=== PATIENT | male | born 1945 | race Caucasian/White ===

== ENCOUNTER 2018-11-17 17:28 | Emergency (ER) | payer MEDICARE, OTHER ==
[~2018-11-17] VITALS: Ht 185.4 cm; Wt 88.9 kg
--- NOTE | 2018-11-17 17:55 | ED Back Pain ---
General Chief Complaint: Back Problems Stated Complaint: LOWER BACK, LEFT BUTTOCK PAIN Nursing Triage Note: AMBULATED TO TRIAGE WITH COMPLAINTS OF LOWER BACK PAIN THAT IS OFF AND ON AND LEFT BUTTOCK PAIN THAT IS ON AND OFF. DAUGHTER WHO IS A WEB CONTENT EDITOR WANTS HIM WORKED UP FOR A KIDNEY STONE. Nursing Sepsis Screen: No Definite Risk Source of Information: Patient, Family Exam Limitations: No Limitations History of Present Illness Date Seen by Provider: Nov 17, 2018 Time Seen by Provider: 17:54 Initial Comments To ER by family with reports of sudden onset intense left flank pain about 15 minutes prior to arrival. This resolved on its own. It's almost gone now with the exception of some residual pain in the left buttocks. He denies any dysuria nausea vomiting fevers or chills. History of anemia, thrombocytosis, just finished hydroxyurea. Last hemoglobin was 6.9. Location: Lumbar Spine, Paraspinous Muscles Timing/Duration: 1/2 Hour Severity: Moderate Pain/Injury Location: Back Associated Symptoms: lower back pain Allergies and Home Medications Allergies Coded Allergies: Tetanus Vaccines and Toxoid (Verified Allergy, Unknown, 11/17/18) Patient Home Medication List Home Medication List Reviewed: Yes Review of Systems Constitutional: see HPI EENTM: see HPI Respiratory: no symptoms reported Cardiovascular: no symptoms reported Genitourinary: no symptoms reported Musculoskeletal: see HPI Skin: no symptoms reported Past Mpthupy-Kgyyvs-Ggxmcv Hx Patient Social History Recent Foreign Travel: No Contact w/Someone Who Travel: No Recent Infectious Disease Expo: No Physical Exam Vital Signs Vital Signs - First Documented 11/17/18 17:38 Temp 97.7 Pulse 64 Resp 16 B/P (MAP) 148/61 (90) Pulse Ox 96 O2 Delivery Room Air Capillary Refill : Less Than 3 Seconds Height, Weight, BMI Height: 6'1.00" Weight: 196lbs. oz. 88.884619fa; BMI Method:Stated General Appearance: No Apparent Distress, WD/WN HEENT: PERRL/EOMI, TMs Normal Neck: Full Range of Motion, Normal Inspection Respiratory: Lungs Clear, Normal Breath Sounds, No Accessory Muscle Use, No Respiratory Distress Gastrointestinal: Non Tender, Soft Extremity: Normal Capillary Refill, Normal Inspection Neurologic/Psychiatric: Alert, Oriented x3 Skin: Normal Color, Warm/Dry Progress/Results/Core Measures Results/Orders Lab Results Laboratory Tests Test 11/17/18 17:54 Range/Units White Blood Count 6.8 4.3-11.0 10^3/uL Red Blood Count 2.02 L 4.35-5.85 10^6/uL Hemoglobin 7.6 L 13.3-17.7 G/DL Hematocrit 24 L 40-54 % Mean Corpuscular Volume 118 H 80-99 FL Mean Corpuscular Hemoglobin 38 H 25-34 PG Mean Corpuscular Hemoglobin Concent 32 32-36 G/DL Red Cell Distribution Width 24.7 H 10.0-14.5 % Platelet Count 854 H 130-400 10^3/uL Mean Platelet Volume 9.8 7.4-10.4 FL Neutrophils (%) (Auto) 58 42-75 % Lymphocytes (%) (Auto) 26 12-44 % Monocytes (%) (Auto) 12 0-12 % Eosinophils (%) (Auto) 3 0-10 % Basophils (%) (Auto) 1 0-10 % Neutrophils # (Auto) 4.0 1.8-7.8 X 10^3 Lymphocytes # (Auto) 1.8 1.0-4.0 X 10^3 Monocytes # (Auto) 0.8 0.0-1.0 X 10^3 Eosinophils # (Auto) 0.2 0.0-0.3 10^3/uL Basophils # (Auto) 0.1 0.0-0.1 10^3/uL Urine Color YELLOW Urine Clarity CLEAR Urine pH 5 5-9 Urine Specific [place] 1.015 L 1.016-1.022 Urine Protein 2+ H NEGATIVE Urine Glucose (UA) NEGATIVE NEGATIVE Urine Ketones NEGATIVE NEGATIVE Urine Nitrite NEGATIVE NEGATIVE Urine Bilirubin NEGATIVE NEGATIVE Urine Urobilinogen NORMAL NORMAL MG/DL Urine Leukocyte Esterase NEGATIVE NEGATIVE Urine RBC (Auto) NEGATIVE NEGATIVE Urine RBC NONE /HPF Urine WBC NONE /HPF Urine Squamous Epithelial Cells 5-10 /HPF Urine Crystals NONE /LPF Urine Bacteria NEGATIVE /HPF Urine Casts NONE /LPF Urine Mucus NEGATIVE /LPF Urine Culture Indicated NO Sodium Level 140 135-145 MMOL/L Potassium Level 4.0 3.6-5.0 MMOL/L Chloride Level 109 H 98-107 MMOL/L Carbon Dioxide Level 22 21-32 MMOL/L Anion Gap 9 5-14 MMOL/L Blood Urea Nitrogen 19 H 7-18 MG/DL Creatinine 0.92 0.60-1.30 MG/DL Estimat Glomerular Filtration Rate > 60 BUN/Creatinine Ratio 21 Glucose Level 93 70-105 MG/DL Calcium Level 8.6 8.5-10.1 MG/DL Corrected Calcium 8.5 8.5-10.1 MG/DL Total Bilirubin 0.3 0.1-1.0 MG/DL Aspartate Amino Transf (AST/SGOT) 17 5-34 U/L Alanine Aminotransferase (ALT/SGPT) 18 0-55 U/L Alkaline Phosphatase 53 40-136 U/L Total Protein 7.2 6.4-8.2 GM/DL Albumin 4.1 3.2-4.5 GM/DL My Orders Orders - HELLEN WEI APRN Cbc With Automated Diff (11/17/18 17:42) Comprehensive Metabolic Panel (11/17/18 17:42) Ua Culture If Indicated (11/17/18 17:42) Ed Iv/Invasive Line Start (11/17/18 17:42) Ct Abd/Pelvis Wo(Kidney Stone) (11/17/18 17:51) Vital Signs/I&O 11/17/18 17:38 Temp 97.7 Pulse 64 Resp 16 B/P (MAP) 148/61 (90) Pulse Ox 96 O2 Delivery Room Air Blood Pressure Mean: 90 Diagnostic Imaging Diagonstic Imaging: CT Comments NAME: FARZAD HANNA [facility] REC#: [id number] PT STATUS: REG ER : 1945 PHYSICIAN: HELLEN WEI APRN ADMIT DATE: 11/17/18/ER Draft Date of Exam:11/17/18 CT ABD/PELVIS WO(KIDNEY STONE) PROCEDURE: CT urinary tract, rule out kidney stone. TECHNIQUE: Multiple contiguous axial images were obtained through the abdomen and pelvis without the use of intravenous contrast. Auto Exposure Controls were utilized during the CT exam to meet ALARA standards for radiation dose reduction. INDICATION: Left flank pain. FINDINGS: The lung bases are clear. Liver is unremarkable. There are some tiny stones in the dependent portion of the gallbladder. Common duct is not dilated. Pancreas appears normal. Spleen is not enlarged. Adrenals and kidneys appear normal. The prostate is enlarged. Urinary bladder is unremarkable. Appendix is normal. Small bowel is not dilated. There is a moderate amount of stool in the colon. IMPRESSION: Cholecystolithiasis. Aortic atherosclerosis. Enlarged prostate. No acute abnormality is seen. There is no evidence of ureteral calculus or obstruction. Dictated on workstation # [id number] Dict: 11/17/18 1838 Trans: 11/17/18 1846 [facility] [id number] Interpreted by: VILMA MURRAY MD Electronically signed by: Departure Impression Primary Impression: transient left flank pain Additional Impression: Thrombocytosis Disposition: HOME, SELF-CARE Condition: Stable Departure-Patient Inst. Decision time for Depature: 18:49 Referrals: NO,LOCAL PHYSICIAN (PCP/Family) Primary Care Physician Patient Instructions: NO INSTRUCTIONS GIVEN Add. Discharge Instructions: All discharge instructions reviewed with patient and/or family. Voiced understanding. HELLEN WEI WIRELESS ARCHITECT Nov 17, 2018 17:55
[2018-11-17 18:03] LABS: BASOPHILS # (AUTO) 0.1 10^3/uL (0.0-0.1); BASOPHILS % (AUTO) 1 % (0-10); EOSINOPHILS # (AUTO) 0.2 10^3/uL (0.0-0.3); EOSINOPHILS % (AUTO) 3 % (0-10); HEMATOCRIT 24 % (40-54); HEMOGLOBIN 7.6 G/DL (13.3-17.7); LYMPHOCYTES # (AUTO) 1.8 X 10^3 (1.0-4.0); LYMPHOCYTES % (AUTO) 26 % (12-44); MEAN CORPUSCULAR HEMOGLOBIN 38 PG (25-34); MEAN CORPUSCULAR HGB CONC 32 G/DL (32-36); MEAN CORPUSCULAR VOLUME 118 FL (80-99); MEAN PLATELET VOLUME 9.8 FL (7.4-10.4); MONOCYTES # (AUTO) 0.8 X 10^3 (0.0-1.0); MONOCYTES % (AUTO) 12 % (0-12); NEUTROPHILS % (AUTO) 58 % (42-75); PLATELET COUNT 854 10^3/uL (130-400); RED CELL DISTRIBUTION WIDTH 24.7 % (10.0-14.5); WHITE BLOOD COUNT 6.8 10^3/uL (4.3-11.0)
[2018-11-17 18:05] LABS: BILIRUBIN,URINE NEGATIVE (NEGATIVE); CLARITY,URINE CLEAR; COLOR,URINE YELLOW; GLUCOSE, URINE (UA) NEGATIVE (NEGATIVE); KETONES,URINE NEGATIVE (NEGATIVE); LEUKOCYTE ESTERASE ,URINE NEGATIVE (NEGATIVE); NITRITE,URINE NEGATIVE (NEGATIVE); PH,URINE 5 (5-9); PROTEIN,URINE 2+ (NEGATIVE); UROBILINOGEN,URINE NORMAL (NORMAL)
[2018-11-17] MEDS ORDERED: FOLI0.4T2 PO (18:10)
[2018-11-17] MEDS ORDERED: CARTIA XT (18:10)
[2018-11-17] MEDS ORDERED: NIAC500T24 PO (18:10)
[2018-11-17 18:14] LABS: BACTERIA,URINE NEGATIVE /HPF
[2018-11-17 18:22] LABS: ALANINE AMINOTRANSFERASE 18 U/L (0-55); ALBUMIN 4.1 GM/DL (3.2-4.5); ALKALINE PHOSPHATASE 53 U/L (40-136); BILIRUBIN,TOTAL 0.3 MG/DL (0.1-1.0); BUN/CREATININE RATIO 21; CALCIUM 8.6 MG/DL (8.5-10.1); CARBON DIOXIDE 22 MMOL/L (21-32); CHLORIDE 109 MMOL/L (98-107); CREATININE SERUM 0.92 MG/DL (0.60-1.30); GFR ESTIMATED > 60; GLUCOSE 93 MG/DL (70-105); SODIUM 140 MMOL/L (135-145); TOTAL PROTEIN 7.2 GM/DL (6.4-8.2)
--- NOTE | 2018-11-17 18:46 | Diagnostic Imaging Report ---
PROCEDURE: CT urinary tract, rule out kidney stone. TECHNIQUE: Multiple contiguous axial images were obtained through the abdomen and pelvis without the use of intravenous contrast. Auto Exposure Controls were utilized during the CT exam to meet ALARA standards for radiation dose reduction. INDICATION: Left flank pain. FINDINGS: The lung bases are clear. Liver is unremarkable. There are some tiny stones in the dependent portion of the gallbladder. Common duct is not dilated. Pancreas appears normal. Spleen is not enlarged. Adrenals and kidneys appear normal. The prostate is enlarged. Urinary bladder is unremarkable. Appendix is normal. Small bowel is not dilated. There is a moderate amount of stool in the colon. IMPRESSION: Cholecystolithiasis. Aortic atherosclerosis. Enlarged prostate. No acute abnormality is seen. There is no evidence of ureteral calculus or obstruction. Dictated by: Dictated on workstation # [id number]
[2018-11-17 19:01] VITALS: BP 147/68
== END 2018-11-17 19:01 | disposition home or self-care (01) ==
LOC: EDUNIT# 17:28 → ER 17:30
DX: D47.3 Essential (hemorrhagic) thrombocythemia (principal); R10.32 Left lower quadrant pain; Z88.7 Allergy status to serum and vaccine
CPT/HCPCS: 36415; 74176; 80053; 81000; 85025

== ENCOUNTER 2019-03-15 10:12 | Outpatient (CLI) | payer MEDICARE, OTHER ==
[~2019-03-15 10:12] MED LIST: CARTIA XT; FOLI0.4T2 PO; NIAC500T24 PO
[2019-03-15 10:30] VITALS: BP 106/65
[2019-03-15] MEDS ORDERED: diphenhydrAMINE 25 MG TAB (BENADRYL) PO ONE (10:30)
[2019-03-15] MEDS ORDERED: CATHETER FLUSH 10 ML SYR IV PRN (10:30)
[2019-03-15] MEDS ORDERED: NS IV 500 ML 500 ML IV SCH (10:30)
[2019-03-15] MEDS ORDERED: ACETAMINOPHEN 500 MG TAB (TYLENOL) PO ONE (10:30)
--- NOTE | 2019-03-15 10:45 | NUR ---
PT.'S PULSE WENT FROM 80 TO MID TO UPPER 140'S. PT. STATES IT HAPPENS OFTEN, HE GOES IN & OUT OF AFIB. DR. BRUCH CALLED AT THIS TIME. NEW ORDER TO GIVE METOPROLOL TARTRATE 25 MG PO X 1 DOSE NOW AND HAVE PT. CONTINUE VAGAL MANUEVERS TO TRY AND CONVERT HIMSELF BACK TO NORMAL. IF UNABLE TO DO SO, CALL DR. BYRD.
[2019-03-15] MEDS ORDERED: meTOprolol TARTRATE 25 MG (LOPRESSOR) TABLET PO ONE (11:00)
[2019-03-15 11:48] VITALS: BP 141/62
[2019-03-15 12:03] VITALS: BP 142/65
[2019-03-15] MEDS ORDERED: ACET325T38 PO (12:29)
[2019-03-15] MEDS ORDERED: OXYC1TAB12 PO (12:29)
[2019-03-15] MEDS ORDERED: CLOP75TA28 PO (12:29)
[2019-03-15] MEDS ORDERED: PREG100C PO (12:29)
[2019-03-15] MEDS ORDERED: DILT240C PO (12:29)
[2019-03-15] MEDS ORDERED: TAMS0.4C98 PO (12:29)
[2019-03-15] MEDS ORDERED: ANAG1CAP2 PO (12:29)
[2019-03-15] MEDS ORDERED: METO-333 PO (12:29)
[2019-03-15] MEDS ORDERED: GABA-488 PO (12:29)
[2019-03-15] MEDS ORDERED: ASPI-999 PO (12:29)
[2019-03-15] MEDS ORDERED: FERR-84 PO (12:29)
[2019-03-15] MEDS ORDERED: FINA5TAB6 PO (12:29)
[2019-03-15 14:05] VITALS: BP 128/63
== END 2019-03-15 14:21 | disposition home or self-care (01) ==
LOC: SDC 10:12
PROVIDERS: ATTEND Nurse Practitioner Family
DX: D64.9 Anemia, unspecified (principal)
CPT/HCPCS: 36415; 36430; 86850; 86900; 86901; 86920

== ENCOUNTER 2019-04-16 08:58 | Outpatient (CLI) | payer MEDICARE, OTHER ==
[~2019-04-16] VITALS: Ht 188 cm; Wt 81.8 kg
[~2019-04-16 08:58] MED LIST changes: +ACET325T38 PO; +ANAG1CAP2 PO; +ASPI-999 PO; +CLOP75TA28 PO; +DILT240C PO; +FERR-84 PO; +FINA5TAB6 PO; +GABA-488 PO; +METO-333 PO; +OXYC1TAB12 PO; +PREG100C PO; +TAMS0.4C98 PO
[2019-04-16 09:05] VITALS: BP 157/67
[2019-04-16] MEDS ORDERED: NS IV 1000 ML 1,000 ML IV NR (09:15)
[2019-04-16] MEDS ORDERED: NS IV 1000 ML 1,000 ML IV ONE (10:45)
[2019-04-16 10:57] VITALS: BP 157/67
[2019-04-16] MEDS ORDERED: NS IV 500 ML 500 ML IV ONE (11:00)
[2019-04-16 11:12] VITALS: BP 162/74
[2019-04-16 13:20] VITALS: BP 139/66
[2019-04-16 14:25] LABS: HEMOGLOBIN 7.1 G/DL (13.3-17.7)
== END 2019-04-16 13:40 | disposition home or self-care (01) ==
LOC: SDC 08:58
PROVIDERS: ATTEND Family Medicine
DX: D57.1 Sickle-cell disease without crisis (principal); D53.9 Nutritional anemia, unspecified
CPT/HCPCS: 36415; 36430; 85014; 85018; 86850; 86900; 86901; 86920

== ENCOUNTER 2019-04-21 09:46 | Inpatient (IN) | payer MEDICARE, OTHER ==
[~2019-04-21] VITALS: Ht 188 cm; Wt 77.8 kg
[2019-04-21] VITALS (15 sets, daily range): BP systolic 119–195; BP diastolic 44–96
[2019-04-21] MEDS ORDERED: NS IV 1000 ML 1,000 ML IV SCH ×2 (10:01→10:15)
--- NOTE | 2019-04-21 10:08 | ED Cardiac General ---
History of Present Illness General Chief Complaint: Cardiac/General Problems Stated Complaint: LOW BP/ELEV HR Source: patient Exam Limitations: no limitations History of Present Illness Date Seen by Provider: Apr 21, 2019 Time Seen by Provider: 09:50 Initial Comments Patient presents with family to the ER by private conveyance with chief complaint for the past 2-3 weeks he has been having intermittent lightheaded, racing heart rate, tiredness weakness. No chest pain. No history of coronary disease or heart attack. He does have a history of atrial fibrillation and has had rapid ventricular response in the past and had to be medically cardioverted but never electrically cardioverted. 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 He is not diabetic. He does not smoke, quit 3 months ago. He recently moved to the area from [place] and follows with Dr. Gallegos and Dr. Pagan. He is not on blood thinners due to his high risk of falls. His says she found him down on the floor yesterday and while he denies following she says she does not house he would've got there. He is supposed to establish care shortly with Dr. Pagan for his myelodysplastic disorder RARs-T. He is on Agrylin and 10 mg prednisone daily. His also noted he had a fever of 101 yesterday. He endorses a cough but no dysuria abdominal pain nausea vomiting shortness of breath. reports he is on amoxicillin for a sinus infection. Allergies and Home Medications Allergies Coded Allergies: Tetanus Vaccines and Toxoid (Verified Allergy, Unknown, 11/17/18) Home Medications Acetaminophen 325 Mg Tablet, 650 MG PO Q4H PRN for PAIN-MILD OR TEMPATURE, (Reported) Anagrelide HCl 1 Mg Capsule, 1 MG PO BID, (Reported) Aspirin 81 Mg Tab.chew, 81 MG PO DAILY, (Reported) Clopidogrel Bisulfate 75 Mg Tablet, 75 MG PO DAILY, (Reported) Diltiazem HCl 240 Mg Cap.er.24h, 240 MG PO DAILY, (Reported) Ferrous Sulfate 325 Mg Tablet, 325 MG PO BID, (Reported) Finasteride 5 Mg Tablet, 5 MG PO DAILY, (Reported) Gabapentin 300 Mg Capsule, 300 MG PO TID, (Reported) Metoprolol Tartrate 25 Mg Tablet, 25 MG PO HS, (Reported) Oxycodone HCl/Acetaminophen 1 Each Tablet, 1 TAB PO Q4H PRN for PAIN-MODERATE, (Reported) Pregabalin 100 Mg Capsule, 100 MG PO DAILY, (Reported) Tamsulosin HCl 0.4 Mg Cap, 0.4 MG PO DAILY, (Reported) Patient Home Medication List Home Medication List Reviewed: Yes Review of Systems Review of Systems Constitutional: fever; No malaise; weakness EENTM: No Blurred Vision, No Double Vision Respiratory: Cough; Denies Shortness of Air, Denies Wheezing Cardiovascular: See HPI; Denies Chest Pain, Denies Edema Gastrointestinal: Denies Abdominal Pain, Denies Constipated, Denies Diarrhea, Denies Nausea Genitourinary: Denies Burning, Denies Discharge, Denies Drainage Musculoskeletal: No back pain, No joint pain All Other Systems Reviewed Negative Unless Noted: Yes Past Fhlfmwx-Nnfxgc-Vhqrqu Hx Patient Social History Alcohol Use: Denies Use Recreational Drug Use: No Smoking Status: Former Smoker (quit 3 months ago) Type Used: Cigarettes Recent Foreign Travel: No Contact w/Someone Who Travel: No Recent Hopitalizations: No Seasonal Allergies Seasonal Allergies: No Past Medical History Surgeries: Yes Tonsillectomy Respiratory: No Cardiac: Yes Atrial Fibrillation, Hypertension Genitourinary: Yes (hx of hematuria) Musculoskeletal: No Endocrine: No HEENT: Yes Hearing Impairment: Bilateral Hearing Aide Cancer: No Psychosocial: No Integumentary: Yes (l upper ankle wound) 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 oz. 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, clean, dry and intact without erythema or discharge) Neurologic/Psychiatric: Alert, Oriented x3, Other (heart of hearing) Skin: Normal Color, Warm/Dry Focused Exam Lactate Level 04/21/19 10:20: Lactic Acid Level 2.69*H Lactic Acid Level Laboratory Tests Test 04/21/19 10:20 Lactic Acid Level 2.69 MMOL/L (0.50-2.00) *H Progress/Results/Core Measures Results/Orders Lab Results Laboratory Tests Test 04/21/19 09:57 04/21/19 10:20 Range/Units White Blood Count 20.7 H 4.3-11.0 10^3/uL Red Blood Count 2.52 L 4.35-5.85 10^6/uL Hemoglobin 7.5 L 13.3-17.7 G/DL Hematocrit 24 L 40-54 % Mean Corpuscular Volume 94 80-99 FL Mean Corpuscular Hemoglobin 30 25-34 PG Mean Corpuscular Hemoglobin Concent 32 32-36 G/DL Red Cell Distribution Width 18.6 H 10.0-14.5 % Platelet Count 726 H 130-400 10^3/uL Mean Platelet Volume 11.7 H 7.4-10.4 FL Neutrophils (%) (Auto) 42-75 % Lymphocytes (%) (Auto) 12-44 % Monocytes (%) (Auto) 0-12 % Eosinophils (%) (Auto) 0-10 % Basophils (%) (Auto) 0-10 % Neutrophils # (Auto) 1.8-7.8 X 10^3 Lymphocytes # (Auto) 1.0-4.0 X 10^3 Monocytes # (Auto) 0.0-1.0 X 10^3 Eosinophils # (Auto) 0.0-0.3 10^3/uL Basophils # (Auto) 0.0-0.1 10^3/uL Neutrophils % (Manual) 69 % Lymphocytes % (Manual) 5 % Monocytes % (Manual) 9 % Eosinophils % (Manual) 0 % Basophils % (Manual) 0 % Myelocytes % 1 % Band Neutrophils 16 % Anisocytosis SLIGHT Elliptocytes SLIGHT Prothrombin Time 17.6 H 12.2-14.7 SEC INR Comment 1.4 0.8-1.4 Activated Partial Thromboplast Time 36 H 24-35 SEC Sodium Level 140 135-145 MMOL/L Potassium Level 4.4 3.6-5.0 MMOL/L Chloride Level 108 H 98-107 MMOL/L Carbon Dioxide Level 17 L 21-32 MMOL/L Anion Gap 15 H 5-14 MMOL/L Blood Urea Nitrogen 20 H 7-18 MG/DL Creatinine 1.06 0.60-1.30 MG/DL Estimat Glomerular Filtration Rate > 60 BUN/Creatinine Ratio 19 Glucose Level 141 H 70-105 MG/DL Calcium Level 9.1 8.5-10.1 MG/DL Corrected Calcium 9.3 8.5-10.1 MG/DL Total Bilirubin 0.7 0.1-1.0 MG/DL Aspartate Amino Transf (AST/SGOT) 17 5-34 U/L Alanine Aminotransferase (ALT/SGPT) 38 0-55 U/L Alkaline Phosphatase 74 40-136 U/L Troponin I 0.047 H <0.028 NG/ML B-Type Natriuretic Peptide 570.0 H <100.0 PG/ML Total Protein 6.8 6.4-8.2 GM/DL Albumin 3.7 3.2-4.5 GM/DL Lactic Acid Level 2.69 *H 0.50-2.00 MMOL/L My Orders Orders - ANNA CARDENAS Ed Iv/Invasive Line Start (04/21/19 10:01) Ns Iv 1000 Ml (Sodium Chloride 0.9%) (04/21/19 10:01) Metoprolol Tartrate Injection (Lopressor (04/21/19 10:15) Cbc With Automated Diff (04/21/19 10:01) Comprehensive Metabolic Panel (04/21/19 10:01) Troponin I (04/21/19 10:01) Continuous Ekg Monitoring (04/21/19 10:01) Ekg Tracing (04/21/19 10:01) BNP (04/21/19 10:01) Protime With Inr (04/21/19 10:01) Partial Thromboplastin Time (04/21/19 10:01) Type And Screen (04/21/19 10:01) O2 (04/21/19 10:01) Chest 1 View, Ap/Pa Only (04/21/19 10:01) Manual Differential (04/21/19 09:57) Ct Head Wo (04/21/19 10:15) Blood Culture (04/21/19 10:15) Sputum Culture (04/21/19 10:15) Urinalysis (04/21/19 10:15) Urine Culture (04/21/19 10:15) Ed Iv/Invasive Line Start (04/21/19 10:15) Ed Iv/Invasive Line Start (04/21/19 10:15) Vital Signs Adult Sepsis Patie Q15M (04/21/19 10:15) Remove Rings In Anticipation O (04/21/19 10:15) Lactic Acid Analyzer (04/21/19 10:15) Ns Iv 1000 Ml (Sodium Chloride 0.9%) (04/21/19 10:15) Cefepime Injection (Maxipime Injection) (04/21/19 10:15) Ed Iv/Invasive Line Start (04/21/19 10:15) Ns Iv 500 Ml (Sodium Chloride 0.9%) (04/21/19 10:15) Ns (Ivpb) (Sodium C... W/Diltiazem Iv Fo (04/21/19 11:00) Diltiazem Injection (Cardizem Injection) (04/21/19 11:00) Consent-Obtain Consent For (04/21/19 10:57) Monitor S/S Transfusion Reacti (04/21/19 10:57) Red Cells Leukocytes Reduced (04/21/19 10:57) Red Cells Leukocytes Reduced (04/21/19 11:04) Ekg Tracing (04/21/19 11:53) Medications Given in ED Current Medications Medications Dose Ordered Sig/[place] Route Start Time Stop Time Status Last Admin Dose Admin Cefepime HCl 1000 mg/Sterile Water 10 ml @ 200 mls/hr ONCE ONCE IV 04/21/19 10:15 04/21/19 10:17 DC 04/21/19 10:35 200 MLS/HR Metoprolol Tartrate 5 mg ONCE ONCE IV 04/21/19 10:15 04/21/19 10:16 DC 04/21/19 10:16 5 MG Sodium Chloride 500 ml @ 0 mls/hr Q0M ONCE IV 04/21/19 10:15 04/21/19 10:17 DC 04/21/19 10:35 0 MLS/HR Vital Signs/I&O 11/17/19 11/17/19 11/17/19 09:52 09:52 10:45 Temp 36.9 Pulse 141 133 Resp 27 27 B/P (MAP) 92/62 (72) 119/70 (86) Pulse Ox 92 93 93 O2 Delivery Nasal Cannula Nasal Cannula Nasal Cannula O2 Flow Rate 5.00 5.00 Progress Progress Note #1: Time: 10:12 Progress Note Patient's blood pressure soft so we put him in Trendelenburg started liter fluids and gave him 5 mg metoprolol IV. He hasn't had this symptomatic atrial fibrillation with rapid ventricular spots for some time. Regardless for infection since he had a fever although he did have transfusions recently. Stump does not appear to be infected. We'll check urine chest x-ray labs. We have him on paddles and have anticipated possible electrocardioversion if he does not quickly respond to immediate interventions. Placed him on oxygen as he was reading 89%. CT of the head for recent fall related injury. Septic workup given her tachycardia and history of fever. Repeat blood pressure has improved 140/68. We may not give a full 30 mL/kg fluid bolus. Cefepime selected for unknown source of infection. Outpatient is being treated for a sinus infection. Progress Note #2: Time: :19 Progress Note Significantly elevated white count due to acute phase reaction from anemia due to ongoing bleeding versus infection. Progress Note #3: Time: :54 Progress Note The patient returned from CT prior to being initiated on Cardizem drip and was spontaneously converted into a normal sinus rhythm in the mid 70s. Repeat EKG. Initial ECG Impression Date: Apr 21, 2019 Initial ECG Impression Time: 09:52 Initial ECG Rate: 142 Initial ECG Rhythm: A Fib/Flutter Initial ECG Intervals: QT (455) Initial ECG Impression: Atrial Fibrillation w/RVR Comment Narrow complex, regular tachycardia with some 1 box depression in the anterior lateral leads V3 and V4. May be due to repolarization abnormality secondary to tachycardia. No clinically significant ST elevation. EKG : EKG Time: 11:54 Rate: 77 Rhythm: Normal Sinus Intervals: Normal ECG Comparisson: Changed ECG Impression: Normal Comment Normal sinus rhythm without ST elevation or depression. Ischemic signs are normal longer seen. Status post spontaneous conversion. Diagnostic Imaging Diagonstic Imaging: Xray Plain Films/CT/US/NM/MRI: chest (1v) Comments Bilateral pulmonary congestion. Cannot rule out infiltrate. NAME: FARZAD HANNA MED REC#: [id number] PT STATUS: REG ER : 1945 PHYSICIAN: ANNA CARDENAS MD ADMIT DATE: 04/21/19/ER Signed POSDate of Exam:04/21/19 CHEST 1 VIEW, AP/PA ONLY INDICATION: Low blood pressure and tachycardia. TIME OF EXAM: 11:20 AM COMPARISON: No prior studies are available for comparison. The heart is enlarged. There is bilateral interstitial and airspace pulmonary infiltrates suggestive of congestive heart failure. No effusion or pneumothorax is seen. IMPRESSION: Findings suggestive of congestive failure. Dictated by: Dictated on workstation # [id number] Dict: 04/21/19 1130 Trans: 04/21/19 1143 [facility] [phone] Interpreted by: KIRILL JORDAN MD Electronically signed by: KIRILL JORDAN MD 04/21/19 1143 Reviewed: Reviewed by Ny Diagonstic Imaging: CT Plain Films/CT/US/NM/MRI: head Comments NAME: FARZAD HANNA MED REC#: [id number] PT STATUS: REG ER : 1945 PHYSICIAN: ANNA CARDENAS MD ADMIT DATE: 04/21/19/ER Signed POSDate of Exam:04/21/19 CT HEAD WO PROCEDURE: CT head without contrast. TECHNIQUE: Multiple contiguous axial images were obtained through the brain without the use of intravenous contrast. Auto Exposure Controls were utilized during the CT exam to meet ALARA standards for radiation dose reduction. INDICATION: Patient found down. COMPARISON: No prior studies are available for comparison. FINDINGS: The ventricles and sulci are appropriate for the patient's age. No sulcal effacement or midline shift is detected. No acute intra-axial or extra-axial hemorrhage is detected. Cisterns are patent. Visualized paranasal sinuses demonstrate some mucosal thickening in the left maxillary sinus. IMPRESSION: No acute intracranial process is detected. Dictated by: Dictated on workstation # [id number] Dict: 04/21/19 1143 Trans: 04/21/19 1146 [facility] [phone] Interpreted by: KIRILL JORDAN MD Electronically signed by: KIRILL JORDAN MD 04/21/19 1146 Reviewed: Reviewed by Me Departure Communication (Admissions) Time/Spoke to Admitting Phy: 12:10 Discussed the case with Dr. Ramos and the patient the ICU. Time/Spoke to Consulting Phy: 11:05 Discussed case lab imaging with Dr. Pagan and he would like us to start a Cardizem drip as soon as her blood pressure stable. He agrees with fluids and ICU admission for Cardizem drip. He would like to units of blood as this is ongoing bleeding. Impression Primary Impression: Atrial fibrillation with rapid ventricular response Additional Impressions: Acute congestive heart failure Qualified Codes: I50.9 - Heart failure, unspecified Pneumonia Qualified Codes: J18.9 - Pneumonia, unspecified organism Anemia Qualified Codes: D64.9 - Anemia, unspecified Elevated troponin I level Disposition: ADMITTED INPATIENT Condition: Critical Admissions Decision to Admit Reason: Admit from ER (General) Decision to Admit/Date: Apr 21, 2019 Time/Decision to Admit Time: 11:00 Departure-Patient Inst. Referrals: KEVIN GALLEGOS DO (PCP/Family) Primary Care Physician ANNA CARDENAS Apr 21, 2019 10:08 POS
[2019-04-21 10:09] LABS: HEMATOCRIT 24 % (40-54); HEMOGLOBIN 7.5 G/DL (13.3-17.7); MEAN CORPUSCULAR HEMOGLOBIN 30 PG (25-34); MEAN CORPUSCULAR HGB CONC 32 G/DL (32-36); MEAN CORPUSCULAR VOLUME 94 FL (80-99); MEAN PLATELET VOLUME 11.7 FL (7.4-10.4); PLATELET COUNT 726 10^3/uL (130-400); RED CELL DISTRIBUTION WIDTH 18.6 % (10.0-14.5); WHITE BLOOD COUNT 20.7 10^3/uL (4.3-11.0)
[2019-04-21] MEDS ORDERED: NS IV 500 ML 500 ML IV ONE (10:15)
[2019-04-21] MEDS ORDERED: CEFEPIME INJECTION 1,000 MG in WATER (STERILE) FOR INJECTION 10 ML IV ONE (10:15)
[2019-04-21] MEDS ORDERED: meTOprolol 5 MG/5 ML (LOPRESSOR) VIAL IV ONE (10:15)
[2019-04-21 10:18] LABS: INR 1.4 (0.8-1.4); PROTHROMBIN TIME PATIENT 17.6 SEC (12.2-14.7)
[2019-04-21 10:26] LABS: ALANINE AMINOTRANSFERASE 38 U/L (0-55); ALBUMIN 3.7 GM/DL (3.2-4.5); ALKALINE PHOSPHATASE 74 U/L (40-136); BILIRUBIN,TOTAL 0.7 MG/DL (0.1-1.0); BUN/CREATININE RATIO 19; CALCIUM 9.1 MG/DL (8.5-10.1); CARBON DIOXIDE 17 MMOL/L (21-32); CHLORIDE 108 MMOL/L (98-107); CREATININE SERUM 1.06 MG/DL (0.60-1.30); GFR ESTIMATED > 60; GLUCOSE 141 MG/DL (70-105); POTASSIUM 4.4 MMOL/L (3.6-5.0); SODIUM 140 MMOL/L (135-145); TOTAL PROTEIN 6.8 GM/DL (6.4-8.2)
[2019-04-21 10:41] LABS: ANISOCYTOSIS SLIGHT; BAND NEUTROPHILS 16 %; BASOPHILS % (MANUAL) 0 %; ELLIPT/OVALOCYTES SLIGHT; EOSINOPHILS % (MANUAL) 0 %; LYMPHOCYTES % (MANUAL) 5 %; MONOCYTES % (MANUAL) 9 %; MYELOCYTES % 1 %; NEUTROPHILS % (MANUAL) 69 %
[2019-04-21] MEDS ORDERED: DILTIAZEM 25 MG/5 ML INJ (CARDIZEM) VIAL IVP ONE (11:00)
[2019-04-21] MEDS ORDERED: DILTIAZEM IV FOR DRIP 125 MG in NS (IVPB) 100 ML IV SCH (11:00)
--- NOTE | 2019-04-21 11:35 | Diagnostic Imaging Report ---
INDICATION: Low blood pressure and tachycardia. TIME OF EXAM: 11:20 AM COMPARISON: No prior studies are available for comparison. The heart is enlarged. There is bilateral interstitial and airspace pulmonary infiltrates suggestive of congestive heart failure. No effusion or pneumothorax is seen. IMPRESSION: Findings suggestive of congestive failure. Dictated by: Dictated on workstation # [id number]
--- NOTE | 2019-04-21 11:47 | Diagnostic Imaging Report ---
PROCEDURE: CT head without contrast. TECHNIQUE: Multiple contiguous axial images were obtained through the brain without the use of intravenous contrast. Auto Exposure Controls were utilized during the CT exam to meet ALARA standards for radiation dose reduction. INDICATION: Patient found down. COMPARISON: No prior studies are available for comparison. FINDINGS: The ventricles and sulci are appropriate for the patient's age. No sulcal effacement or midline shift is detected. No acute intra-axial or extra-axial hemorrhage is detected. Cisterns are patent. Visualized paranasal sinuses demonstrate some mucosal thickening in the left maxillary sinus. IMPRESSION: No acute intracranial process is detected. Dictated by: Dictated on workstation # [id number]
[2019-04-21 12:29] LABS: BILIRUBIN,URINE NEGATIVE (NEGATIVE); CLARITY,URINE CLEAR; COLOR,URINE YELLOW; GLUCOSE, URINE (UA) NEGATIVE (NEGATIVE); KETONES,URINE NEGATIVE (NEGATIVE); LEUKOCYTE ESTERASE ,URINE NEGATIVE (NEGATIVE); NITRITE,URINE NEGATIVE (NEGATIVE); PH,URINE 6.5 (5-9); PROTEIN,URINE 2+ (NEGATIVE)
[2019-04-21 12:41] LABS: BACTERIA,URINE TRACE /HPF
--- NOTE | 2019-04-21 13:00 | NUR ---
FARZAD HANNA admitted to room CU9-1, with an admitting diagnosis of A-fib with RVR, on 04/21/19 from [place] via cart, accompanied by staff.FARZAD HANNA introduced to surroundings, call light, bed controls, phone, TV, temperature control, lights, meal times, smoking policy, visitor policy, side rail policy, bathrooms and showers. Patient Rights given to patient in the handbook. FARZAD HANNA verbalizes understanding that [facility] is not responsible for the loss or damage to any personal effects or valuables that are kept in the patients posession during their hospitalization. The following Patient Care Plans were discussed with the pt: Discharge Planning. FARZAD HANNA verbalizes understanding of Interdisciplinary Patient Education. Patient and/or family were informed about the Rapid Response Team and its purpose.
[2019-04-21] MEDS ORDERED: CEFEPIME 1,000 MG/SWFI 10 ML IV PUSH IV NR ×2 (13:40)
[2019-04-21] MEDS ORDERED: ACETAMINOPHEN 500 MG TAB (TYLENOL) PO PRN (13:45)
[2019-04-21] MEDS ORDERED: ONDANSETRON 4 MG/2 ML (SDV) Z0FRAN IV PRN (13:45)
[2019-04-21] MEDS ORDERED: AZITHROMYCIN 500 MG/NS 250 ML IVPB IV SCH ×2 (14:00)
[2019-04-21] MEDS: LACTATED RINGERS 1,000 ML IV SCH (14:36)
[2019-04-21] MEDS ORDERED: MELATONIN 3 MG TABLET PO PRN (16:00)
[2019-04-21] MEDS ORDERED: ONDANSETRON 4 MG (ZOFRAN) ORAL DISSOLVE TAB PO PRN (16:00)
[2019-04-21] MEDS ORDERED: ACETAMINOPHEN 325 MG TABLET PO PRN (16:00)
[2019-04-21] MEDS ORDERED: POLYETHYLENE GLYCOL 17 GM (MIRALAX) PACK PO PRN (16:00)
[2019-04-21] MEDS ORDERED: RT-ALBUTEROL/IPRATROPIUM 3 ML (DUONEB) VIAL INH PRN (16:45)
[2019-04-21] MEDS: inSUlin ASPART (NovoLOG) 1 UNIT/0.01 ML (CHARGE PER UNIT) SC SCH ×2 (17:09→20:54)
[2019-04-21] MEDS ORDERED: CEFEPIME 2,000 MG/SWFI 20 ML IV PUSH IV SCH ×2 (21:00)
--- NOTE | 2019-04-21 21:00 | NUR ---
Patient refused to let this RN check blood sugar, when informed that this RN was doing a blood sugar check he stated "no you are not" and that he isn't diabetic.
[2019-04-21] MEDS: RT-ALBUTEROL/IPRATROPIUM 3 ML (DUONEB) VIAL INH SCH ×2 (21:05→22:03)
--- NOTE | 2019-04-21 21:10 | NUR ---
PT REFUSES TX. PT STATES HE DOES NOT NEED ANY BREATHING TX. PT IS EDUCATED ON BENEFITS OF TX. THIS RT INFORMS PT THAT IF HE CHANGES HIS MIND OR BECOMES SOA TO CALL NURSE AND I WILL RETURN WITH TX
[2019-04-22] VITALS (7 sets, daily range): BP systolic 151–187; BP diastolic 66–94
[2019-04-22] MEDS: LACTATED RINGERS 1,000 ML IV SCH (00:39)
[2019-04-22 03:47] LABS: BASOPHILS # (AUTO) 0.1 10^3/uL (0.0-0.1); BASOPHILS % (AUTO) 0 % (0-10); HEMATOCRIT 27 % (40-54); HEMOGLOBIN 8.8 G/DL (13.3-17.7); MEAN CORPUSCULAR HEMOGLOBIN 30 PG (25-34); MEAN CORPUSCULAR HGB CONC 33 G/DL (32-36); MEAN CORPUSCULAR VOLUME 91 FL (80-99); MEAN PLATELET VOLUME 11.5 FL (7.4-10.4); PLATELET COUNT 603 10^3/uL (130-400); RED CELL DISTRIBUTION WIDTH 17.3 % (10.0-14.5); WHITE BLOOD COUNT 20.6 10^3/uL (4.3-11.0)
[2019-04-22 03:49] LABS: EOSINOPHILS % (AUTO) 1 % (0-10); LYMPHOCYTES # (AUTO) 1.3 X 10^3 (1.0-4.0); LYMPHOCYTES % (AUTO) 6 % (12-44); MONOCYTES # (AUTO) 1.8 X 10^3 (0.0-1.0); MONOCYTES % (AUTO) 9 % (0-12); NEUTROPHILS # (AUTO) 17.3 X 10^3 (1.8-7.8); NEUTROPHILS % (AUTO) 84 % (42-75)
[2019-04-22 03:50] LABS: BUN/CREATININE RATIO 22; CALCIUM 8.4 MG/DL (8.5-10.1); CARBON DIOXIDE 18 MMOL/L (21-32); CHLORIDE 111 MMOL/L (98-107); CREATININE SERUM 0.81 MG/DL (0.60-1.30); EOSINOPHILS # (AUTO) 0.1 10^3/uL (0.0-0.3); GFR ESTIMATED > 60; GLUCOSE 105 MG/DL (70-105); MAGNESIUM 1.9 MG/DL (1.6-2.4); PHOSPHORUS 3.2 MG/DL (2.3-4.7); POTASSIUM 3.7 MMOL/L (3.6-5.0); SODIUM 141 MMOL/L (135-145)
[2019-04-22] MEDS ORDERED: DILTIAZEM 25 MG/5 ML INJ (CARDIZEM) VIAL ONE (05:49)
[2019-04-22] MEDS ORDERED: meTOprolol TARTRATE 50 MG (LOPRESSOR) TAB ONE (05:57)
[2019-04-22] MEDS ORDERED: DILTIAZEM 240 MG (CARDIZEM CD) CAP PO ONE ×2 (05:57→06:00)
[2019-04-22] MEDS ORDERED: DILTIAZEM 25 MG/5 ML INJ (CARDIZEM) VIAL IVP ONE (06:00)
[2019-04-22] MEDS: meTOprolol TARTRATE 50 MG (LOPRESSOR) TAB PO SCH ×2 (06:04→21:35)
[2019-04-22] MEDS: POTASSIUM CL 10MEQ/50ML IVPB 50 ML IV SCH (06:40)
[2019-04-22] MEDS: MAGNESIUM 1 GM/100 ML IVPB 100 ML IV SCH (06:41)
[2019-04-22] MEDS: inSUlin ASPART (NovoLOG) 1 UNIT/0.01 ML (CHARGE PER UNIT) SC SCH ×4 (06:41→21:35)
[2019-04-22] MEDS: KCL 20 MEQ TAB (K-DUR) PO SCH (06:41)
--- NOTE | 2019-04-22 07:03 | Consultation-Cardiology ---
HPI-Cardiology Cardiology Consultation Date of Consultation 04/22/19 Date of Admission Time Seen by Provider: 06:56 Indication: chest pain, palpitation HPI 73 years old gentleman with extensive peripheral arterial disease, underwent right BKA recently, had some chest tightness and tachycardia, came to the emergency room and noted to have SVT, currently heart rate is better. He is having mild abdominal discomfort. No chest pain. No syncope or near syncopal episodes. No claudication he was noted to have leukocytosis. No source of infection was identified so far. He denied any further episodes of chest pain. No syncope, reported history of paroxysmal atrial fibrillation in the past. Home Medications & Allergies Allergies: Coded Allergies: Tetanus Vaccines and Toxoid (Verified Allergy, Unknown, 11/17/18) Home Medication List Reviewed: Yes DEI-[id number]-[id number] Hx Patient Social History Marital Status: Employed/Student: retired Alcohol Use: Denies Use Recreational Drug Use: No Smoking Status: Former Smoker (quit 3 months ago) Type Used: Cigarettes Recent Foreign Travel: No Recent Infectious Disease Expo: No Recent Hopitalizations: No Past Medical History discussed below Family Medical History Family Medical Hx noncontributory Review of Systems-General Review of Systems Constitutional: fever; No malaise; weakness EENTM: see HPI, no symptoms reported Respiratory: see HPI, cough, dyspnea on exertion; No hemoptysis, No orthopnea, No phlegm, No short of breath, No stridor, No wheezing, No other Cardiovascular: see HPI, chest pain; No edema, No Hx of Intervention; palpitations; No syncope; vascular heart diseas; No other Gastrointestinal: no symptoms reported, see HPI Genitourinary: no symptoms reported, see HPI Musculoskeletal: No back pain, No joint pain; other (right BKA) Skin: no symptoms reported, see HPI Psychiatric/Neurological: No Symptoms Reported, See HPI All Other Systems Reviewed Negative Unless Noted: Yes Reviewed Test Results Reviewed Test Results Lab Laboratory Tests Test 04/21/19 09:57 04/21/19 10:20 04/21/19 12:20 04/21/19 16:10 Range/Units White Blood Count 20.7 H 4.3-11.0 10^3/uL Red Blood Count 2.52 L 4.35-5.85 10^6/uL Hemoglobin 7.5 L 13.3-17.7 G/DL Hematocrit 24 L 40-54 % Mean Corpuscular Volume 94 80-99 FL Mean Corpuscular Hemoglobin 30 25-34 PG Mean Corpuscular Hemoglobin Concent 32 32-36 G/DL Red Cell Distribution Width 18.6 H 10.0-14.5 % Platelet Count 726 H 130-400 10^3/uL Mean Platelet Volume 11.7 H 7.4-10.4 FL Neutrophils (%) (Auto) 42-75 % Lymphocytes (%) (Auto) 12-44 % Monocytes (%) (Auto) 0-12 % Eosinophils (%) (Auto) 0-10 % Basophils (%) (Auto) 0-10 % Neutrophils # (Auto) 1.8-7.8 X 10^3 Lymphocytes # (Auto) 1.0-4.0 X 10^3 Monocytes # (Auto) 0.0-1.0 X 10^3 Eosinophils # (Auto) 0.0-0.3 10^3/uL Basophils # (Auto) 0.0-0.1 10^3/uL Neutrophils % (Manual) 69 % Lymphocytes % (Manual) 5 % Monocytes % (Manual) 9 % Eosinophils % (Manual) 0 % Basophils % (Manual) 0 % Myelocytes % 1 % Band Neutrophils 16 % Anisocytosis SLIGHT Elliptocytes SLIGHT Prothrombin Time 17.6 H 12.2-14.7 SEC INR Comment 1.4 0.8-1.4 Activated Partial Thromboplast Time 36 H 24-35 SEC Sodium Level 140 135-145 MMOL/L Potassium Level 4.4 3.6-5.0 MMOL/L Chloride Level 108 H 98-107 MMOL/L Carbon Dioxide Level 17 L 21-32 MMOL/L Anion Gap 15 H 5-14 MMOL/L Blood Urea Nitrogen 20 H 7-18 MG/DL Creatinine 1.06 0.60-1.30 MG/DL Estimat Glomerular Filtration Rate > 60 BUN/Creatinine Ratio 19 Glucose Level 141 H 70-105 MG/DL Calcium Level 9.1 8.5-10.1 MG/DL Corrected Calcium 9.3 8.5-10.1 MG/DL Total Bilirubin 0.7 0.1-1.0 MG/DL Aspartate Amino Transf (AST/SGOT) 17 5-34 U/L Alanine Aminotransferase (ALT/SGPT) 38 0-55 U/L Alkaline Phosphatase 74 40-136 U/L Troponin I 0.047 H 0.063 H <0.028 NG/ML B-Type Natriuretic Peptide 570.0 H <100.0 PG/ML Total Protein 6.8 6.4-8.2 GM/DL Albumin 3.7 3.2-4.5 GM/DL Procalcitonin 0.20 H <0.10 NG/ML Lactic Acid Level 2.69 *H 1.20 0.50-2.00 MMOL/L Urine Color YELLOW Urine Clarity CLEAR Urine pH 6.5 5-9 Urine Specific [place] 1.020 1.016-1.022 Urine Protein 2+ H NEGATIVE Urine Glucose (UA) NEGATIVE NEGATIVE Urine Ketones NEGATIVE NEGATIVE Urine Nitrite NEGATIVE NEGATIVE Urine Bilirubin NEGATIVE NEGATIVE Urine Urobilinogen 1.0 < = 1.0 MG/DL Urine Leukocyte Esterase NEGATIVE NEGATIVE Urine RBC (Auto) NEGATIVE NEGATIVE Urine RBC NONE /HPF Urine WBC NONE /HPF Urine Crystals NONE /LPF Urine Bacteria TRACE /HPF Urine Casts NONE /LPF Urine Mucus NEGATIVE /LPF Urine Culture Indicated NO Test 04/21/19 16:38 04/21/19 21:54 04/22/19 03:15 Range/Units Glucometer 147 H 70-110 MG/DL Troponin I 0.058 H <0.028 NG/ML White Blood Count 20.6 H 4.3-11.0 10^3/uL Red Blood Count 2.95 L 4.35-5.85 10^6/uL Hemoglobin 8.8 L 13.3-17.7 G/DL Hematocrit 27 L 40-54 % Mean Corpuscular Volume 91 80-99 FL Mean Corpuscular Hemoglobin 30 25-34 PG Mean Corpuscular Hemoglobin Concent 33 32-36 G/DL Red Cell Distribution Width 17.3 H 10.0-14.5 % Platelet Count 603 H 130-400 10^3/uL Mean Platelet Volume 11.5 H 7.4-10.4 FL Neutrophils (%) (Auto) 84 H 42-75 % Lymphocytes (%) (Auto) 6 L 12-44 % Monocytes (%) (Auto) 9 0-12 % Eosinophils (%) (Auto) 1 0-10 % Basophils (%) (Auto) 0 0-10 % Neutrophils # (Auto) 17.3 H 1.8-7.8 X 10^3 Lymphocytes # (Auto) 1.3 1.0-4.0 X 10^3 Monocytes # (Auto) 1.8 H 0.0-1.0 X 10^3 Eosinophils # (Auto) 0.1 0.0-0.3 10^3/uL Basophils # (Auto) 0.1 0.0-0.1 10^3/uL Sodium Level 141 135-145 MMOL/L Potassium Level 3.7 3.6-5.0 MMOL/L Chloride Level 111 H 98-107 MMOL/L Carbon Dioxide Level 18 L 21-32 MMOL/L Anion Gap 12 5-14 MMOL/L Blood Urea Nitrogen 18 7-18 MG/DL Creatinine 0.81 0.60-1.30 MG/DL Estimat Glomerular Filtration Rate > 60 BUN/Creatinine Ratio 22 Glucose Level 105 70-105 MG/DL Calcium Level 8.4 L 8.5-10.1 MG/DL Phosphorus Level 3.2 2.3-4.7 MG/DL Magnesium Level 1.9 1.6-2.4 MG/DL Physical Exam Physical Exam Vital Signs Vital Signs - First Documented 04/21/19 09:52 Temp 36.9 Pulse 141 Resp 27 B/P (MAP) 92/62 (72) Pulse Ox 92 O2 Delivery Nasal Cannula O2 Flow Rate 5.00 Capillary Refill : Less Than 3 Seconds Height, Weight, BMI Height: 6'1.00" Weight: 196lbs. oz. 88.023735bu; 23.70 BMI Method:Stated General Appearance: No Apparent Distress, Thin Eyes: Bilateral Eye Normal Inspection, Bilateral Eye PERRL, Bilateral Eye EOMI HEENT: PERRL/EOMI, Pharynx Normal, Moist Mucous Membranes Neck: Full Range of Motion, Normal Inspection, Non Tender, Supple Respiratory: Chest Non Tender, Lungs Clear, Normal Breath Sounds, No Accessory Muscle Use, No Respiratory Distress Cardiovascular: Regular Rate, Rhythm, Normal Peripheral Pulses Gastrointestinal: Normal Bowel Sounds, Non Tender, Soft Back: Normal Inspection, No CVA Tenderness, No Vertebral Tenderness Extremity: Normal Capillary Refill, Other (right below the knee amputation stump and wound are healing, clean, dry and intact without erythema or discharge) Neurologic/Psychiatric: Alert, Oriented x3, Other (heart of hearing) Skin: Normal Color, Warm/Dry Lymphatic: No Adenopathy A/P-Cardiology Admission Diagnosis Type II myocardial infarction Chest pain Palpitation Peripheral arterial disease Hypertension Assessment/Plan Type II myocardial infarction, slight elevation in troponin probably secondary to tachycardia, underlying coronary artery disease cannot be excluded. Continue to monitor at this point Chest pain, occurred during his tachycardia episode, currently not having active chest pain, EKG did not show acute changes Peripheral arterial disease status post right BKA, had nonhealing ulcer and failed multiple interventions in the past, undergoing physical therapy and recovering slowly. Palpitation, history of paroxysmal atrial fibrillation, on admission he had supraventricular tachycardia, probably reentry tachycardia, currently in sinus rhythm. Continue to monitor Leukocytosis, maintained on prednisone, septic workup initiated. Managed by primary care physician Tobaccoism, educated on smoking cessation COPD, could not tolerate bronchodilator. Consult Dr. Wolff Hypertension, monitor blood pressure Hyperlipidemia, monitor lipids Family history of heart disease Clinical Quality Measures DVT/VTE Risk/Contraindication: Risk Factor Score Per Nursin RFS Level Per Nursing on Admit: 4+=Very High JULISSA BYRD MD Apr 22, 2019 07:03 POS
--- NOTE | 2019-04-22 07:04 | Diagnostic Imaging Report ---
EXAMINATION: Chest 1 view HISTORY: Shortness of breath FINDINGS: Comparison is 04/21/2019. There is severe pulmonary edema, unchanged. Heart size is mildly enlarged, similar to previous exam. No pneumothorax. There are small bilateral pleural effusions. IMPRESSION: 1. Severe pulmonary edema, unchanged. Dictated by: Dictated on workstation # [id number]
[2019-04-22] MEDS ORDERED: PHARMACY TO DOSE IV SCH (07:15)
[2019-04-22] MEDS ORDERED: PIPERACILLIN/TAZOBACTAM 4.5 GM in NS (IVPB) 100 ML IV NR (07:26)
--- NOTE | 2019-04-22 07:30 | NUR ---
PTD VANCOMYCIN LABS: SCR 0.81 WT 84KG PLAN: VANCOMYCIN 1,750MG IV LOADING DOSE (20MG/KG) THEN 1,250MG IV Q12H (15MG/KG) PLAN TO CHECK A TROUGH LEVEL PRIOR TO 3RD DOSE 04/23 @ 0800.
[2019-04-22] MEDS ORDERED: NS (IVPB) 50 ML ONE (07:39)
--- NOTE | 2019-04-22 07:41 | Pulmonary Consultation ---
AZUL JORDAN MED STUDENT 04/22/19 0741: History of Present Illness History of Present Illness Date of Consultation 04/22/19 07:36 Time Seen by Provider: 07:37 Date of Admission Reason for Visit: chest pain, palpitation History of Present Illness Patient is a 73 year old male difficult historian with a past medical history of PVD s/p right foot amputation approximately 6.5 weeks ago with multiple hospitalizations since that time, HTN, 60 pk year smoking history who reported to the ED for an "uncomfortable feeling" in his chest. Patient states that the pain does not radiate. He endorsed dizziness and feeling feverish upon arrival to the ED. He also endorses cough productive of white sputum. He denies any associated diaphoresis, nausea, vomiting, shortness of breath, rectal bleeding, dark colored stools. Allergies and Home Medications Allergies Coded Allergies: Tetanus Vaccines and Toxoid (Verified Allergy, Unknown, 11/17/18) Home Medications Acetaminophen 325 Mg Tablet, 650 MG PO Q4H PRN for PAIN-MILD OR TEMPATURE, (Reported) Anagrelide HCl 1 Mg Capsule, 1 MG PO BID, (Reported) Aspirin 81 Mg Tab.chew, 81 MG PO DAILY, (Reported) Clopidogrel Bisulfate 75 Mg Tablet, 75 MG PO DAILY, (Reported) Diltiazem HCl 240 Mg Cap.er.24h, 240 MG PO DAILY, (Reported) Ferrous Sulfate 325 Mg Tablet, 325 MG PO BID, (Reported) Finasteride 5 Mg Tablet, 5 MG PO DAILY, (Reported) Gabapentin 300 Mg Capsule, 300 MG PO TID, (Reported) Metoprolol Tartrate 25 Mg Tablet, 25 MG PO HS, (Reported) Oxycodone HCl/Acetaminophen 1 Each Tablet, 1 TAB PO Q4H PRN for PAIN-MODERATE, (Reported) Pregabalin 100 Mg Capsule, 100 MG PO DAILY, (Reported) Tamsulosin HCl 0.4 Mg Cap, 0.4 MG PO DAILY, (Reported) Past Vlzrhsk-Vcskcq-Lgnrwq Hx Patient Social History Alcohol Use: Denies Use Recreational Drug Use: No Smoking Status: Former Smoker (quit 3 months ago) Type Used: Cigarettes Former Smoker, Quit: Jan 07, 2019 Recent Foreign Travel: No Contact w/Someone Who Travel: No Recent Infectious Disease Expo: No Recent Hopitalizations: No Physical Abuse: No Sexual Abuse: No Mistreated: No Fear: No Seasonal Allergies Seasonal Allergies: No Past Medical History Surgeries: Yes (R Lower Leg amputation) Tonsillectomy Respiratory: No Cardiac: Yes Atrial Fibrillation, Hypertension Genitourinary: Yes (hx of hematuria) Musculoskeletal: No Endocrine: No HEENT: Yes Hearing Impairment: Bilateral Hearing Aide Cancer: No Psychosocial: No Integumentary: Yes (l upper ankle wound) Blood Disorders: Yes (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 oz. 88.188544hi; 23.70 BMI Method:Stated Exam Exam Vital Signs Date Time Temp Pulse Resp B/P (MAP) Pulse Ox O2 Delivery O2 Flow Rate FiO2 04/22/19 04:00 97 Nasal Cannula 3.00 04/22/19 04:00 139 9 168/94 (118) Nasal Cannula 3.00 04/22/19 04:00 37.0 04/22/19 02:48 Nasal Cannula 4.00 04/22/19 00:50 130 04/22/19 00:00 36.8 04/22/19 00:00 97 Nasal Cannula 3.00 04/22/19 00:00 73 10 170/78 (108) Nasal Cannula 3.00 04/21/19 22:03 93 Nasal Cannula 4.00 04/21/19 22:02 Nasal Cannula 4.00 04/21/19 22:00 68 30 177/83 (114) 94 Nasal Cannula 3.00 04/21/19 21:06 97 Nasal Cannula 3.00 04/21/19 20:30 69 18 157/69 (98) 94 Nasal Cannula 3.00 04/21/19 20:00 66 11 195/96 (129) 97 Nasal Cannula 3.00 04/21/19 20:00 36.7 04/21/19 20:00 97 Nasal Cannula 3.00 04/21/19 19:00 64 24 169/76 (107) 96 Nasal Cannula 3.00 04/21/19 18:43 62 1117/19 18:00 61 10 151/69 (96) 97 Nasal Cannula 3.00 04/21/19 17:00 56 16 148/79 (102) 98 Nasal Cannula 3.00 04/21/19 16:16 37.0 58 91 04/21/19 16:13 58 18 136/44 (74) 91 Nasal Cannula 3.00 04/21/19 16:00 98 Nasal Cannula 3.00 04/21/19 15:00 61 16 136/62 (86) 97 Nasal Cannula 3.00 04/21/19 14:00 66 20 161/77 (105) 90 Nasal Cannula 3.00 04/21/19 13:44 65 04/21/19 13:21 122 04/21/19 13:15 122 20 134/90 (105) 98 Nasal Cannula 3.00 04/21/19 13:00 98 OxyMask 5.00 04/21/19 12:40 125 26 142/85 98 OxyMask 5.00 04/21/19 12:33 37.0 125 24 142/85 96 OxyMask 5.00 04/21/19 12:15 37.0 75 27 123/54 25 04/21/19 12:02 37.5 74 24 142/65 97 OxyMask 5.00 04/21/19 10:45 133 27 119/70 (86) 93 Nasal Cannula 5.00 04/21/19 09:52 93 Nasal Cannula 5.00 04/21/19 09:52 36.9 141 27 92/62 (72) 92 Nasal Cannula I & O 04/22/19 07:00 Intake Total 3500 ml Output Total 960 ml Balance 2540 ml Height & Weight Height: 6'1.00" Weight: 196lbs. oz. 88.466393xo; 23.70 BMI Method:Stated General Appearance: No Apparent Distress, Thin HEENT: PERRL/EOMI, Pharynx Normal, Moist Mucous Membranes Neck: Full Range of Motion, Normal Inspection, Non Tender, Supple Respiratory: Chest Non Tender, Lungs Clear, Normal Breath Sounds, No Accessory Muscle Use, No Respiratory Distress Cardiovascular: Regular Rate, Rhythm, Normal Peripheral Pulses Capillary Refill: Less Than 3 Seconds Gastrointestinal: normal bowel sounds, non tender, soft Extremity: Normal Capillary Refill, Other (right below the knee amputation stump and wound are healing, clean, dry and intact without erythema or discharge) Neurologic/Psychiatric: Alert, Oriented x3, Other (hard of hearing) Skin: Normal Color, Warm/Dry Lymphatic: No Adenopathy Results Lab Laboratory Tests 04/21/19 09:57 04/22/19 03:15 Radiology Chest Xray 04/22/19 1. Severe pulmonary edema, unchanged. Head CT 04/21/19 IMPRESSION: No acute intracranial process is detected. Assessment/Plan Assessment/Plan Chest pain -Cardiology consulted - Per cardiology: history of paroxysmal atrial fibrillation, on admission he had supraventricular tachycardia, probably reentry tachycardia, currently in sinus rhythm. 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 -consult heme/onc Leukocytosis -reported home fever of 101 -afebrile during admission -pending whiteside cultures -d/c cefepime and azithro -Started Zosyn and Vanc Acute CHF -BNP 570 -Echo -Bilateral pulmonary edema -Lasix 40mg Hx HTN Suspected COPD -Duoneb RTQ6 -Duoneb Q4 PRN JUANITO KIMBALL DO 04/22/19 0814: History of Present Illness History of Present Illness Time Seen by Provider: 08:10 History of Present Illness Presented secondary to dizziness, CP, and productive cough of white sputum. Pt is now being monitored in ICU. Allergies and Home Medications Allergies Coded Allergies: Tetanus Vaccines and Toxoid (Verified Allergy, Unknown, 11/17/18) Home Medications Acetaminophen 325 Mg Tablet, 650 MG PO Q4H PRN for PAIN-MILD OR TEMPATURE, (Reported) Anagrelide HCl 1 Mg Capsule, 1 MG PO BID, (Reported) Aspirin 81 Mg Tab.chew, 81 MG PO DAILY, (Reported) Clopidogrel Bisulfate 75 Mg Tablet, 75 MG PO DAILY, (Reported) Diltiazem HCl 240 Mg Cap.er.24h, 240 MG PO DAILY, (Reported) Ferrous Sulfate 325 Mg Tablet, 325 MG PO BID, (Reported) Finasteride 5 Mg Tablet, 5 MG PO DAILY, (Reported) Gabapentin 300 Mg Capsule, 300 MG PO TID, (Reported) Metoprolol Tartrate 25 Mg Tablet, 25 MG PO HS, (Reported) Oxycodone HCl/Acetaminophen 1 Each Tablet, 1 TAB PO Q4H PRN for PAIN-MODERATE, (Reported) Pregabalin 100 Mg Capsule, 100 MG PO DAILY, (Reported) Tamsulosin HCl 0.4 Mg Cap, 0.4 MG PO DAILY, (Reported) Review of Systems Time Seen by Provider: 08:11 Constitutional: Fever; No: Chills, Sweats Eyes: No: Vision change Respiratory: Cough, Sputum (white); No: Shortness of breath, Hemoptysis Cardiovascular: No: Chest Pain, Palpitations Gastrointestinal: No: Nausea, Vomiting, Diarrhea, Melena, Hematochezia Exam Exam General Appearance: No Apparent Distress HEENT: PERRL/EOMI, Pharynx Normal, Moist Mucous Membranes Neck: Full Range of Motion, Normal Inspection, Non Tender, Supple Respiratory: Chest Non Tender, Lungs Clear, Normal Breath Sounds, No Accessory Muscle Use, No Respiratory Distress Cardiovascular: Regular Rate, Rhythm, Normal Peripheral Pulses Gastrointestinal: normal bowel sounds, non tender, soft Extremity: Normal Capillary Refill Neurologic/Psychiatric: Alert, Oriented x3 Skin: Normal Color, Warm/Dry Lymphatic: No Adenopathy Assessment/Plan Assessment/Plan Leukocytosis r/o infection -Fever at home of 101 -Whiteside cultures -Start Vanco/Zosyn PVD -s/p right BKA -clopidogrel Chest pain -Cardiology consulted 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
[2019-04-22] MEDS ORDERED: VANCOMYCIN 1,750 MG/NS 500 ML IVPB IV NR ×2 (08:00)
[2019-04-22] MEDS: ASPIRIN 81 MG CHEW (CHILDREN'S ASA) PO SCH (08:02)
[2019-04-22] MEDS: DILTIAZEM 240 MG (CARDIZEM CD) CAP PO SCH ×2 (08:02→08:07)
[2019-04-22] MEDS: CLOPIDOGREL 75 MG (PLAVIX) TABLET PO SCH (08:02)
[2019-04-22] MEDS ORDERED: FUROSEMIDE 40 MG/4 ML INJ (LASIX) IVP NR (09:00)
--- NOTE | 2019-04-22 09:06 | NUR ---
Pt transferred to room 510 via wheel chair. This nurse gave SBAR report to Shelia RICO.
[2019-04-22] MEDS: RT-ALBUTEROL/IPRATROPIUM 3 ML (DUONEB) VIAL INH SCH ×3 (10:34→20:57)
[2019-04-22] MEDS ORDERED: ANAG0.5C3 PO (10:37)
[2019-04-22] MEDS ORDERED: PRD10T PO (10:37)
[2019-04-22] MEDS ORDERED: BISA5TAB8 PO (10:37)
[2019-04-22] MEDS ORDERED: NF-ANAG0.5 PO (10:37)
[2019-04-22] MEDS ORDERED: GBPN600T PO (10:52)
[2019-04-22] MEDS ORDERED: DILT240C53 PO (11:00)
[2019-04-22] MEDS ORDERED: GABA-488 PO (11:06)
[2019-04-22] MEDS ORDERED: OXYC1TAB12 PO (11:10)
--- NOTE | 2019-04-22 11:10 | NUR ---
SPOKE WITH THE PATIENTS FAMILY ABOUT MEDICATIONS. THEY HAVE A MEDICATION LIST FROM [facility] FROM 04-12-19 AND STATE THIS LIST IS HIS MOST ACCURATE MED LIST. I WENT OVER THAT LIST WITH THEM WELL THE MEDS WE HAD ON FILE HERE FROM HIS PREVIOUS VISIT. FAMILY REPORTS HE NO LONGER IS TAKING ASPIRIN, PLAVIX, OR LYRICA. I REMOVED THEM FROM THE MED REC. I CALLED HIS PHARMACIES TO TRY AND VERIFY LAST FILL DATES. [facility] [place] FILLED: 04-10-19 ANAGRELIDE 0.5MG 2 CAPS HS AND 3 CAPS AM THEY ALSO REPORTED TRANSFERRING SOME SCRIPTS TO [facility] [phone] FILLED: 04-09-19 GABAPENTIN 300MG 2 TID #180 04-09-19 PREDNISONE 10MG DAILY #30 [facility] [phone] FILLED: 02-28-19 FLOMAX 0.4MG #90 (TAKES AM) 02-28-19 FINASTERIDE 5MG #90 (TAKES AM) 01-27-19 CARTIA XT 240MG #90 02-06-19 PERCOCET 10-325MG (FILLED #90/15 FROM [facility] 03-[facility] BUT IS NO LONGER IN THAT FACILITY. FAMILY STATES HE TAKES THIS RARELY FOR LEG PAIN BUT NOT OFTEN) 09-26-18 METOPROLOL TARTRATE 25MG HS #90 (REPORTED NOW BID, UNSURE WHERE IT HAS BEEN FILLED MORE RECENTLY) OTC MEDS: TYLENOL 325MG 1-2 Q4H PRN IRON 325MG DAILY FOLIC ACID 0.4MG DAILY BISACODYL DAILY PRN
[2019-04-22] MEDS: PIPERACILLIN/TAZOBACTAM (BULK) 4.5 GM in NS (IVPB) 100 ML IV SCH ×2 (14:53→21:35)
[2019-04-22] MEDS ORDERED: RT-ALBUTEROL/IPRATROPIUM 3 ML (DUONEB) VIAL INH PRN (17:00)
--- NOTE | 2019-04-22 17:54 | History & Physical ---
History of Present Illness History of Present Illness Reason for visit/HPI This is a 73 year old male with a history of PVD who underwent a right BKA approximately 6.5 weeks ago. He presented to the emergency room with chest discomfort. He has a history of atrial fibrillation as well as refractory anemia. He was found to have SVT with an elevated troponin as well as pulmonary edema and leukocytosis. He has been having falls since he arrived at home and did bust open the stump of his right BKA with his last fall. He was admitted to the ICU for further evaluation and treatment with cardiology and pulmonology consultation. Date of Admission Apr 22, 2019 at 12:21 Date Seen by a Provider: Apr 22, 2019 Time Seen by a Provider: 08:35 I consulted on this patient on 04/22/19 17:49 Attending Physician Veronica Ramos MD Admitting Physician Leeann Burch DO Consult Allergies and Home Medications Allergies Coded Allergies: Tetanus Vaccines and Toxoid (Verified Allergy, Unknown, 11/17/18) Home Medications Acetaminophen 325 Mg Tablet, 325-650 MG PO Q4H PRN for PAIN-MILD OR TEMPATURE, (Reported) Anagrelide HCl 0.5 Mg Capsule, 1.5 MG PO HS, (Reported) TAKES 3 (0.5MG) CAPSULES Anagrelide HCl 0.5 Mg Cap, 1 MG PO DAILY, (Reported) TAKES 2 (0.5MG) CAPSULES Bisacodyl 5 Mg Tablet.dr, 5 MG PO DAILY PRN for CONSTIPATION-4TH LINE, (Reported) Diltiazem HCl 240 Mg Cap.er.24h, 240 MG PO DAILY, (Reported) Ferrous Sulfate 325 Mg Tablet, 325 MG PO DAILY, (Reported) Finasteride 5 Mg Tablet, 5 MG PO DAILY, (Reported) Folic Acid 0.4 Mg Tablet, 0.4 MG PO DAILY, (Reported) Gabapentin 300 Mg Capsule, 600 MG PO TID, (Reported) TAKES 2 (300MG) CAPSULES Metoprolol Tartrate 25 Mg Tablet, 25 MG PO BID, (Reported) HOLD IF HEART RATE BELOW 60 Oxycodone HCl/Acetaminophen 1 Each Tablet, 1 TAB PO Q4H PRN for PAIN-MODERATE (5-7), (Reported) Prednisone 10 Mg Tab, 10 MG PO DAILY, (Reported) Tamsulosin HCl 0.4 Mg Cap, 0.4 MG PO DAILY, (Reported) Patient Home Medication List Home Medication List Reviewed: Yes Past Ybhwprw-Ssvjhy-Zleoka Hx Past Med/Social Hx: Reviewed Nursing Past Med/Soc Hx Patient Social History Marrital Status: Employed/Student: retired Alcohol Use: Denies Use Recreational Drug Use: No Smoking Status: Former Smoker (quit 3 months ago) Former Smoker, Quit: Jan 07, 2019 Type Used: Cigarettes Recent Foreign Travel: No Contact w/other who traveled: No Recent Hopitalizations: No Recent Infectious Disease Expo: No Seasonal Allergies Seasonal Allergies: No Past Medical History Surgeries: Tonsillectomy Cardiac: Atrial Fibrillation, Hypertension Hearing Impairment: Bilateral Hearing Aide History of Blood Disorders: Yes (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) Review of Systems Constitutional: fever, weakness EENTM: hearing loss Respiratory: cough, short of breath Cardiovascular: chest pain Gastrointestinal: No RUQ, No LUQ, No RLQ, No LLQ, No no symptoms reported, No see HPI, No abdominal pain, No constipation, No diarrhea, No dysphagia, No hematemesis, No heartburn, No jaundice, No loss of appetite, No melena, No nausea, No vomiting, No other Genitourinary: No no symptoms reported, No see HPI, No decreased output, No discharge, No dysuria, No frequency, No hematuria, No hesitancy, No incontinence, No nocturia, No pain, No other Musculoskeletal: muscle weakness (with falls) Skin: other (right stump with eschar tissue/opening since recent fall) Psychiatric/Neurological: Weakness Physical Exam Vital Signs Vital Signs - First Documented 04/21/19 04/22/19 09:52 14:15 Temp 36.9 Pulse 141 Resp 27 B/P (MAP) 92/62 (72) Pulse Ox 92 O2 Delivery Nasal Cannula O2 Flow Rate 5.00 FiO2 28 Capillary Refill : Less Than 3 Seconds Height, Weight, BMI Height: 6'1.00" Weight: 196lbs. oz. 88.141128wd; 23.70 BMI Method:Stated General Appearance: No Apparent Distress HEENT: Normal ENT Inspection, Other (hearing loss) Neck: Supple Respiratory: Crackles, Decreased Breath Sounds, Respiratory Distress (mild) Cardiovascular: Regular Rate, Rhythm, Systolic Murmur, Gallop/S4 Gastrointestinal: Normal Bowel Sounds, Non Tender, Soft Rectal: Deferred Extremity: Non Tender, No Calf Tenderness, No Pedal Edema Neurologic/Psychiatric: Alert, Oriented x3 Skin: Other (right BKA with dressing and brace in place, left lower leg with dressing in place) Comments Laboratory Tests 04/21/19 21:54: Troponin I 0.058H 04/22/19 03:15: White Blood Count 20.6H, Red Blood Count 2.95L, Hemoglobin 8.8L, Hematocrit 27L, Mean Corpuscular Volume 91, Mean Corpuscular Hemoglobin 30, Mean Corpuscular Hemoglobin Concent 33, Red Cell Distribution Width 17.3H, Platelet Count 603H, Mean Platelet Volume 11.5H, Neutrophils (%) (Auto) 84H, Lymphocytes (%) (Auto) 6L, Monocytes (%) (Auto) 9, Eosinophils (%) (Auto) 1, Basophils (%) (Auto) 0, Neutrophils # (Auto) 17.3H, Lymphocytes # (Auto) 1.3, Monocytes # (Auto) 1.8H, Eosinophils # (Auto) 0.1, Basophils # (Auto) 0.1, Sodium Level 141, Potassium Level 3.7, Chloride Level 111H, Carbon Dioxide Level 18L, Anion Gap 12, Blood Urea Nitrogen 18, Creatinine 0.81, Estimat Glomerular Filtration Rate > 60, BUN/Creatinine Ratio 22, Glucose Level 105, Calcium Level 8.4L, Phosphorus Level 3.2, Magnesium Level 1.9 04/22/19 16:15: Lab Scanned Report Transfusion Reaction Form Microbiology 04/21/19 Blood Culture - Preliminary, Resulted No growth 04/21/19 MRSA Screen - Final, Complete MRSA not isolated 04/21/19 Urine Culture - Final, Complete NO GROWTH Assessment/Plan Assessment and Plan 1. Type II Myocardial Infarction--medical management per cardiology 2. Bilateral Pulmonary Edema--Diurese with lasix 3. Leukocytosis with likely pneumonia/SIRS--continue IV zosyn/Vanc and monitor WBC count/CXR/await cultures 4. History of Atrial Fibrillation with SVT on Admit--rate improved 5. Severe PVD with recent right BKA--will need assessment due to falls for either Rehab or back to ID 6. 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 Pyoderma Gangrenosum--left leg lesion wrapped Admission Diagnosis Admission Status: Inpatient Order (span 2 midnights) Reason for Inpatient Admission: Will need IV abx until cultures back and WBC count improving Clinical Quality Measures DVT/VTE Risk/Contraindication: Risk Factor Score Per Nursin RFS Level Per Nursing on Admit: 4+=Very High LEEANN BURCH DO Apr 22, 2019 17:54 POS
--- NOTE | 2019-04-22 18:03 | CONSULTATION REPORT ---
DATE OF SERVICE: 04/22/2019 The patient is admitted to room 510. PHYSICIAN REQUESTING CONSULTATION: Latonya Pagan MD PRIMARY PHYSICIAN: Leeann Gallegos DO IMPRESSION: A 73-year-old male admitted to the hospital with dizziness, palpitation and fatigue. He was found to have supraventricular tachycardia. He has history of myelodysplastic syndrome/MPN with ring sideroblasts and thrombocytosis by history. This was diagnosed in 2016 in [place] following a bone marrow evaluation. He was managed with hydroxyurea initially. Since this summer, he developed ulcers in his lower extremity, which was not healing. He was found to have peripheral vascular disease and recently had a right below knee amputation. He currently has a left heel ulcer that has not healed. In early March 2019, he was evaluated at [facility] and hydroxyurea was discontinued and the patient was started on anagrelide because of the thrombocytosis. Following this, when he was admitted to [facility] in [place], he required a plateletpheresis as his platelet count was more than 1.5 million. He is continuing on anagrelide 1.5 mg in a.m. and 1 mg at bedtime. The patient was recently moved to [place] to be closer to their daughter and hematology/oncology consultation was requested for concurrent care. The patient had bone marrow aspiration and biopsy done during his current admission at [facility]. Do not have the pathology reports available. The patient is extremely hard of hearing and most of the history was given by his daughter who is a nurse practitioner. PAST MEDICAL HISTORY: Significant for myelodysplastic syndrome/myeloproliferative disorder, with ring sideroblasts and thrombocytosis in 2016. Prior to this, he did not have any medical problems. More recently, he was diagnosed with atrial fibrillation with rapid ventricular response. He was initially treated with hydroxyurea until early 03/2019 since then with anagrelide. He was also diagnosed with pyoderma gangrenosum and has been on low-dose prednisone for the past 2+ months. Peripheral vascular disease as mentioned above with recent right below knee amputation in 03/2019. No other major surgeries. SOCIAL HISTORY: The patient is . They lived in [place] most of their lives. He has recently moved to [place] to be closer to his daughter. They have three children, two daughters and a son. The son and one daughter live in [place]. The other daughter lives in [place], [place]. He has smoked approximately a pack of cigarettes a day for close to 60 years, but quit smoking last month when he was admitted to the hospital for below knee amputation. Denied any significant alcohol or recreational drug use. FAMILY HISTORY: Only significant for his father who was diagnosed with multiple myeloma later in life. No other hematologic problems or malignancies in the family. PHYSICAL EXAMINATION: GENERAL: Today showed an elderly male, thin appearing, very hard of hearing, awake and oriented, does not appear in any acute distress. VITAL SIGNS: Temperature was 37.5 degree centigrade, pulse rate of 69, respirations 18, blood pressure 187/71 with oxygen saturation of 93% on 2 liters of oxygen by nasal cannula. HEENT: Normocephalic, extraocular muscles intact, conjunctivae pink, oral mucosa moist. NECK: Supple, with no JVD. No cervical, supraclavicular or axillary lymphadenopathy palpable. CHEST: Symmetrical. LUNGS: With slightly diminished breath sounds in the left base. Rest of the lung [place] clear to auscultation without wheezes or rales. CARDIOVASCULAR: Regular in rate and rhythm without murmurs or gallops. ABDOMEN: Soft, nontender with no hepatosplenomegaly or other masses palpable. EXTREMITIES: Showed right below knee amputation. Rest of the extremities with no edema. NEUROLOGIC: Showed no focal motor deficits. LABORATORY DATA: CBC done at the time of admission yesterday showed white blood cell count of 20.7, hemoglobin 7.5 with MCV 94, platelet count 726,000 with neutrophil percentage 69, lymphocytes 5, monocytes 9 and band neutrophils 16%. CMP done at the time of admission showed normal electrolytes except CO2 level of 17. BUN was 20 and creatinine 1.06 with GFR more than 60 mL per minute. Nonfasting glucose was 141. Liver function studies were within normal limits. Troponin was 0.047. BNP was slightly elevated at 570. Follow up troponin levels were also slightly above normal. Blood and urine cultures showed no growth so far. Chest x-ray done at the time of admission showed features of congestive heart failure. RECOMMENDATIONS: 1. MDS/MPN with anemia with ring sideroblasts and thrombocytosis by history. The patient completed a bone marrow aspiration and biopsy in March at [facility]. 2. Currently on treatment with anagrelide 1.5 mg in a.m. and 1 mg in p.m. Continue until the bone marrow reports are available to control thrombocytosis. 3. Supraventricular tachycardia. Currently, rate is controlled. Continue medical management. Once the final pathology report from the bone marrow aspiration and biopsy is available, I would recommend discontinuing anagrelide therapy as this could cause cardiac toxicity. 4. Peripheral vascular disease with a recent right below knee amputation. The patient also has a left heel ulcer. Consider wound care consultation and followup. 5. Extensive history of tobacco use, quit in March 2019. 6. I will obtain the bone marrow aspiration biopsy reports from [facility] before making definitive recommendations about the diagnosis and management. 7. We will follow the patient with you. Job ID: [id number] DocumentID: [id number] Dictated Date: 04/22/2019 17:28:21 [employer] Worker Date: 04/22/2019 18:02:49 Dictated By: ESHA MORIN MD
[2019-04-22] MEDS: meTOprolol TARTRATE 25 MG (LOPRESSOR) TABLET PO SCH (21:34)
[2019-04-22] MEDS: VANCOMYCIN 1250 MG/NS 250 ML IVPB IV SCH ×2 (21:35)
[2019-04-23] VITALS (8 sets, daily range): BP systolic 129–190; BP diastolic 67–90
--- NOTE | 2019-04-23 03:00 | NUR ---
Patient heart rate noted to increase to 130s-140s. Oxygen taken off throughout shift and placed back on by this RN, noted for sats to drop below 90% when removed. EKG done per order. Patient requesting to have called and wanting to go home. Asking for wheelchair and clothing. Reminded patient that in the hospital because of being sick, CXR done per order as well as labs drawn and patient agreeable. After procedures done and vital signs taken, heart rate noted to drop to 90s and patient appears more relaxed. Will continue to monitor.
[2019-04-23 03:59] LABS: BASOPHILS # (AUTO) 0.1 10^3/uL (0.0-0.1); BASOPHILS % (AUTO) 0 % (0-10); HEMATOCRIT 29 % (40-54); HEMOGLOBIN 9.3 G/DL (13.3-17.7); MEAN CORPUSCULAR HEMOGLOBIN 29 PG (25-34); MEAN CORPUSCULAR HGB CONC 32 G/DL (32-36); MEAN CORPUSCULAR VOLUME 92 FL (80-99); MEAN PLATELET VOLUME 12.2 FL (7.4-10.4); PLATELET COUNT 669 10^3/uL (130-400); RED CELL DISTRIBUTION WIDTH 17.4 % (10.0-14.5); WHITE BLOOD COUNT 19.2 10^3/uL (4.3-11.0)
[2019-04-23 04:20] LABS: EOSINOPHILS # (AUTO) 0.2 10^3/uL (0.0-0.3); EOSINOPHILS % (AUTO) 1 % (0-10); LYMPHOCYTES # (AUTO) 1.4 X 10^3 (1.0-4.0); LYMPHOCYTES % (AUTO) 8 % (12-44); MONOCYTES # (AUTO) 1.9 X 10^3 (0.0-1.0); MONOCYTES % (AUTO) 10 % (0-12); NEUTROPHILS # (AUTO) 15.6 X 10^3 (1.8-7.8); NEUTROPHILS % (AUTO) 81 % (42-75)
[2019-04-23 04:28] LABS: ALANINE AMINOTRANSFERASE 58 U/L (0-55); ALBUMIN 3.7 GM/DL (3.2-4.5); ALKALINE PHOSPHATASE 93 U/L (40-136); BILIRUBIN,TOTAL 0.9 MG/DL (0.1-1.0); BUN/CREATININE RATIO 16; CALCIUM 9.7 MG/DL (8.5-10.1); CARBON DIOXIDE 21 MMOL/L (21-32); CHLORIDE 107 MMOL/L (98-107); CHOLESTEROL 141 MG/DL (< 200); CREATININE SERUM 1.03 MG/DL (0.60-1.30); GFR ESTIMATED > 60; GLUCOSE 109 MG/DL (70-105); HDL CHOLESTEROL 31 MG/DL (40-60); MAGNESIUM 1.8 MG/DL (1.6-2.4); PHOSPHORUS 4.2 MG/DL (2.3-4.7); SODIUM 144 MMOL/L (135-145); TOTAL PROTEIN 6.9 GM/DL (6.4-8.2); TRIGLYCERIDES 102 MG/DL (<150); VLDL CHOLESTEROL 20 MG/DL (5-40)
[2019-04-23] MEDS: PIPERACILLIN/TAZOBACTAM (BULK) 4.5 GM in NS (IVPB) 100 ML IV SCH ×3 (05:01→20:49)
[2019-04-23] MEDS: POTASSIUM CL 10MEQ/50ML IVPB 50 ML IV SCH (06:05)
[2019-04-23] MEDS: MAGNESIUM 1 GM/100 ML IVPB 100 ML IV SCH (06:05)
[2019-04-23] MEDS: inSUlin ASPART (NovoLOG) 1 UNIT/0.01 ML (CHARGE PER UNIT) SC SCH ×2 (06:06→10:17)
[2019-04-23] MEDS: KCL 20 MEQ TAB (K-DUR) PO SCH (06:06)
--- NOTE | 2019-04-23 06:30 | NUR ---
Patient removed telemetry pack and states "that will not be going back on".
[2019-04-23] MEDS: RT-ALBUTEROL/IPRATROPIUM 3 ML (DUONEB) VIAL INH SCH ×2 (07:05→15:12)
--- NOTE | 2019-04-23 07:29 | Pulmonary Progress Note ---
Sepsis Event Evaluation Height, Weight, BMI Height: 6'1.00" Weight: 196lbs. oz. 88.964377bx; 23.70 BMI Method:Stated Focused Exam Lactate Level 04/21/19 10:20: Lactic Acid Level 2.69*H 04/21/19 12:20: Lactic Acid Level 1.20 Exam Exam Vital Signs Date Time Temp Pulse Resp B/P (MAP) Pulse Ox O2 Delivery O2 Flow Rate FiO2 04/23/19 03:46 37.2 93 22 129/79 (96) 95 High Flow N/C 6.00 04/23/19 02:39 140 04/23/19 01:00 73 04/23/19 00:55 37.0 76 26 189/87 (121) 91 High Flow N/C 6.00 04/22/19 21:00 90 Nasal Cannula 3.00 04/22/19 20:55 37.2 81 22 178/66 (103) 85 Room Air 04/22/19 19:11 70 04/22/19 17:01 37.5 69 18 187/71 (109) 93 Nasal Cannula 2.00 04/22/19 15:55 90 Nasal Cannula 2.00 04/22/19 14:15 37.1 66 92 28 04/22/19 13:00 67 04/22/19 12:13 37.1 61 18 176/72 (106) 93 Nasal Cannula 2.00 04/22/19 09:00 Nasal Cannula 3.00 04/22/19 08:00 36.8 68 15 151/66 (94) Nasal Cannula 3.00 04/22/19 08:00 97 Nasal Cannula 3.00 04/22/19 08:00 68 15 Nasal Cannula 3.00 I & O 04/23/19 07:00 Intake Total 1317.5 ml Output Total 2150 ml Balance -832.5 ml Height & Weight Height: 6'1.00" Weight: 196lbs. oz. 88.496913ql; 23.70 BMI Method:Stated General Appearance: No Apparent Distress HEENT: Normal ENT Inspection, Other (hearing loss) Neck: Supple Respiratory: Crackles, Decreased Breath Sounds, Respiratory Distress (mild) Cardiovascular: Regular Rate, Rhythm, Systolic Murmur, Gallop/S4 Capillary Refill: Less Than 3 Seconds Gastrointestinal: normal bowel sounds, non tender, soft Extremity: Non Tender, No Calf Tenderness, No Pedal Edema Neurologic/Psychiatric: Alert, Oriented x3 Skin: Other (right BKA with dressing and brace in place, left lower leg with dressing in place) Lymphatic: No Adenopathy Results Lab Laboratory Tests 04/21/19 09:57 04/22/19 03:15 04/23/19 03:37 Assessment/Plan Assessment/Plan Leukocytosis r/o Pneumonia -[place] cultures -Continue Vanco/Zosyn PVD -s/p right BKA -clopidogrel Chest pain -Cardiology consulted Anemia secondary to MDS -s/p 2 units PRBC Acute CHF -BNP 570 -Echo -Bilateral pulmonary edema -Lasix 40mg Hx HTN Suspected COPD -Duoneb RTQ6 -Duoneb Q4 PRN JUANITO KIMBALL DO Apr 23, 2019 07:29 POS
--- NOTE | 2019-04-23 07:39 | Cardiology Progress Note ---
Subjective Date Seen by Provider: Apr 23, 2019 Time Seen by Provider: 07:34 Subjective/Events-last exam Patient is laying down in bed, denied any chest pain or palpitation. No syncope, has been refusing to wear his heart monitor Review of Systems General: No Chills, No Night Sweats; Fatigue, Malaise; No Appetite, No Other HEENT: No Head Aches, No Visual Changes, No Eye Pain, No Ear Pain, No Dysphasia, No Sinus Congestion, No Post Nasal Drip, No Sore Throat, No Other Pulmonary: No Dyspnea, No Cough, No Pleuritic Chest Pain, No Other Cardiovascular: No: Chest Pain, Palpitations, Orthopnea, Paroxysmal Noc. Dyspnea, Edema, Lt Headedness, Other Focused Exam Lactate Level 04/21/19 10:20: Lactic Acid Level 2.69*H 04/21/19 12:20: Lactic Acid Level 1.20 Objective-Cardiology Exam Last Set of Vital Signs Vital Signs 04/22/19 04/23/19 14:15 03:46 Temp 37.2 Pulse 93 Resp 22 B/P (MAP) 129/79 (96) Pulse Ox 95 O2 Delivery High Flow N/C O2 Flow Rate 6.00 FiO2 28 Capillary Refill : Less Than 3 Seconds I&O Intake and Output 04/23/19 00:00 Intake Total 1297.5 ml Output Total 2150 ml Balance -852.5 ml Intake Oral 540 ml IV Total 757.5 ml Output Urine Total 2150 ml # Voids 2 # Bowel Movements 2 General: Alert, Oriented X3, Cooperative HEENT: Atraumatic, PERRLA Neck: Supple, No JVD, No Thyromegaly Lungs: Clear to Auscultation, Normal Air Movement Heart: Regular Rate, Normal S1, Normal S2, No Murmurs Abdomen: Normal Bowel Sounds, Soft, No Tenderness, No Hepatosplenomegaly, No Masses Extremities: No Clubbing, No Cyanosis, No Edema, No Tenderness/Swelling, Other (Right BKA) Skin: No Rashes, No Breakdown, No Significant Lesion Neuro: Normal Speech, Normal Tone, Sensation Intact Psych/Mental Status: Mood NL Results Lab Laboratory Tests 04/23/19 03:37 A/P-Cardiology Admission Diagnosis Type II myocardial infarction Chest pain Palpitation Peripheral arterial disease Hypertension Assessment/Plan Type II myocardial infarction, slight elevation in troponin probably secondary to tachycardia, underlying coronary artery disease cannot be excluded. Denied any chest pain, clinically stable. Continue to monitor Chest pain, occurred during his tachycardia episode, currently not having active chest pain, EKG did not show acute changes, planning to do Lexiscan stress test as an outpatient Peripheral arterial disease status post right BKA, had nonhealing ulcer and failed multiple interventions in the past, still having ulcer at the stump site, consult Dr Carrillo Palpitation, history of paroxysmal atrial fibrillation, on admission he had supraventricular tachycardia, probably reentry tachycardia, currently in sinus rhythm. Continue to monitor Leukocytosis, maintained on prednisone, septic workup initiated, started on antibiotics. Managed by primary care physician Tobaccoism, educated on smoking cessation COPD, could not tolerate bronchodilator. Consult Dr. Wolff Hypertension, monitor blood pressure Hyperlipidemia, monitor lipids Family history of heart disease Clinical Quality Measures DVT/VTE Risk/Contraindication: Risk Factor Score Per Nursin RFS Level Per Nursing on Admit: 4+=Very High JULISSA BYRD MD Apr 23, 2019 07:39 POS
[2019-04-23] MEDS ORDERED: TROUGH ORDER-PHARMACY XX ONE (08:00)
--- NOTE | 2019-04-23 08:17 | Diagnostic Imaging Report ---
INDICATION: Dyspnea. COMPARISON: 04/22/2019. FINDINGS: Mild cardiomegaly and vascular distention unchanged. Five-lobed pulmonary edema is at least slightly improved from the previous. Small amounts of pleural fluid are not appreciably changed. There is no pneumothorax. IMPRESSION: Likely a mild reduction in substantial pulmonary edema, no adverse development apparent. Dictated by: Dictated on workstation # [id number]
[2019-04-23] MEDS: DILTIAZEM 240 MG (CARDIZEM CD) CAP PO SCH (08:19)
[2019-04-23] MEDS: CLOPIDOGREL 75 MG (PLAVIX) TABLET PO SCH (08:19)
[2019-04-23] MEDS: ASPIRIN 81 MG CHEW (CHILDREN'S ASA) PO SCH (08:20)
[2019-04-23] MEDS: meTOprolol TARTRATE 50 MG (LOPRESSOR) TAB PO SCH ×2 (08:21→20:48)
[2019-04-23] MEDS: VANCOMYCIN 1250 MG/NS 250 ML IVPB IV SCH ×2 (08:34)
--- NOTE | 2019-04-23 10:16 | Occupational Therapy Eval ---
OT Evaluation-General/PLF Medical Diagnosis Admission Date Apr 22, 2019 at 12:21 Medical Diagnosis: Type II myocardial infarction Onset Date: Apr 22, 2019 Therapy Diagnosis Therapy Diagnosis: Weakness/Decreased ADL skills Height/Weight Height (Feet): 6 Height (Inches): 1.00 Weight (Pounds): 196 Precautions Precautions/Isolations: Fall Prevention, Standard Precautions Safety Interventions: Bed Exit Alarm Referral Physician: Dr. Gallegos Referral Reason: Activity Tolerance, Self Care, Evaluation/Treatment, Strengthening/ROM Medical History Pertinent Medical History: Atrial Fib Additional Medical History Right BKA, [place], refractory anemia, pulmonary edema, leukocytosis Current History Pt. had a right BKA approximately 6 1/2 weeks ago. Fell a week ago and busted stump open. Daughter states that it is healing okay. Reviewed History: Yes Social History Home: Single Level Current Living Status: Spouse Entry Into Home: Ramp ADL-Prior Level of Function SCALE: Activities may be completed with or without assistive devices. 3-Dfqwbttruy-nzmnkky completes the activity by him/herself with no assistance from a helper. 5-Set-up or Clean-up Assistance-helper sets up or cleans up; patient completes activity. [place] assists only prior to or following the activity. 4-Supervision or Touching Assistance-helper provides verbal cues and/or touching/steadying and/or contact guard assistance as patient completes activity. Assistance may be provided throughout the activity or intermittently. 3-Partial/Moderate Assistance-helper does LESS THAN HALF the effort. [place] lifts, holds or supports trunk or limbs, but provides less than half the effort. 2-Substantial/Maximal Assistance-helper does MORE THAN HALF the effort. [place] lifts or holds trunk or limbs and provides more than half the effort. 7-Zjxmosrgm-cgqqyq does ALL the effort. Patient does none of the effort to complete the activity. Or, the assistance of 2 or more helpers is required for the patient to complete the activity. If activity was not attempted, code reason: 7-Patient Refused. 9-Not Applicable-not attempted and the patient did not perform the activity before the current illness, exacerbation or injury. 10-Not Attempted due to Environmental Limitations-(lack of equipment, weather restraints, etc.). 88-Not Attempted due to Medical Conditions or Safety Concerns. ADL PLOF Comments Pt. reports that he is taking care of himself, bathing/dressing himself at home. Reports that his spouse is "sick." Daughter in room but tells this OT to refer to nursing for more information. Nursing reports that daughter has stated that pt. "lacks in self care." He falls easily. Per nursing, pt. has not been compliant with monitors in hospital, and has displayed signs of confusion at night. When OT asks pt. about prior history, pt. is somewhat agitated easily, and will talk around the question. Self Care: Unknown Functional Cognition: Unknown DME/Equipment: Bath Chair, Shower DME/Equipment Comments Pt. has a walker and wheelchair that he uses at home. OT Current Status Subjective Pt. does not report pain level. Appearance Pt. in bed. Daughter in room. Please see note below. Mental Status/Objective Patient Orientation: Unable to Assess ADL-Treatment Eating (QC): 7 Oral Hygiene (QC): 7 Shower/Bathe Self (QC): 7 Upper Body Dressing (QC): 7 (Pt. states that he will get too hot.) Lower Body Dressing (QC): 4 (SBA while seated on side of bed to doff/don left sock. Declines putting any other clothing on. Pt. has underwear only on.) On/Off Footwear (QC): 4 Toileting Hygiene (QC): 4 (Pt. is apparently sitting on side of bed to use urinal. This is reported by pt. and daughter. However, noted that pad under pt. was wet from spillage of urinal. OT changed this for him.) Toilet Transfer (QC): 7 Other Treatments Pt. in bed when OT enters room. Pt. smiles throughout treatment but will say things to this therapist with agitated behavior. Pt. transfers supine-sit with SBA, and to/from wheelchair x 2 with SBA. Pt. doffed/donned left sock while seated on side of bed. Declined other activity. OT educated pt. on purpose of OT and therapy goals for independence. Pt. continually says things such as "you are just now finding this stuff out?" Pt. is agitated throughout session and requires encouragement and constant prompting. Is unable to fully answer questions about his home or previous abilities, and will deflect the question back on the therapist. Spoke with nursing after treatment, who has better idea of home situation. All needs are met in room and daughter in room with pt. Education OT Patient Education: Correct positioning, Modified ADL techniques, Progress toward Goal/Update tx plan, Purpose of tx/functional activities, Reviewed precautions, Rehab process, Transfer techniques Teaching Recipient: Patient, Family Teaching Methods: Demonstration, Discussion Response to Teaching: Verbalize Understanding, Return Demonstration, Reinforcement Needed OT Intermediate Goals Intermediate Goals Time Frame: May 07, 2019 Eating (QC): 6 Oral Hygiene (QC): 6 Toileting Hygiene (QC): 6 Shower/Bathe Self (QC): 5 Upper Body Dressing (QC): 5 Lower Body Dressing (QC): 5 On/Off Footwear (QC): 5 Additional Goals: 1-Demonstrate ADL Tasks, 2-Verbalize Understanding, 3-Impr oveStrength/Harjinder 1=Demonstrate adherence to instructed precautions during ADL tasks. 2=Patient will verbalize/demonstrate understanding of assistive devices/modifications for ADL. 3=Patient will improve strength/tolerance for activity to enable patient to perform ADL's. OT Education/Plan Problem List/Assessment Assessment: Decreased Activ Tolerance, Decreased Safety Aware, Impaired Funct Balance, Impaired I ADL's, Impaired Self-Care Skills Discharge Recommendations Plan/Recommendations: Continue POC Therapy Discharge Recommendati: 24 Hour Supervision Barriers to Progress Agitated behavior and cognition. Patient/Family Goals Pt's ability to attain independence level will be dependent on his ability to participate with therapy and skills training. Treatment Plan/Plan of Care Treatment,Training & Education: Yes Patient would benefit from OT for education, treatment and training to promote independence in ADL's, mobility, safety and/or upper extremity function for ADL's. Plan of Care: ADL Retraining, Caregiver Training, Functional Mobility, UE Funct Exercise/Act Treatment Duration: May 07, 2019 Frequency: 5 times per week Estimated Hrs Per Day: .25 hour per day Agreement: Yes Rehab Potential: Guarded Time/GCodes Start Time: 09:45 Stop Time: 10:05 Total Time Billed (hr/min): 20 Billed Treatment Time 1, RADHA MOSCOSOGAYLE OT Apr 23, 2019 10:15 POS
--- NOTE | 2019-04-23 11:02 | Physical Therapy Progress Note ---
Therapy Progress Note Patient declined PT tx. Patient states that he will tell PT about his mobility but declines to show or do anything. Patient states he is able to use both walker and wheelchair for mobility. He wears knee immobilizer on RLE and he has recently had a ramp installed at the entrance to house. Patient states that two weeks ago he fell when he lost his balance at the foot of the bed by the dresser, which caused the amputation wound to open. Patient reports he has no difficulty with mobility or other concerns at this time. PT will not follow up with patient per patient statement of declining treatment. 1 ref 0 tx. 10:50 am. SUBHASH MATTHEWS PT Apr 23, 2019 11:02 POS
[2019-04-23] MEDS ORDERED: FUROSEMIDE 40 MG (LASIX) TAB PO NR (12:15)
[2019-04-23] MEDS ORDERED: KCL 8 MEQ (MICRO K) TABLET PO NR (12:15)
--- NOTE | 2019-04-23 12:22 | Progress Note ---
Subjective Date Seen by a Provider: Apr 23, 2019 Time Seen by a Provider: 12:17 Subjective/Events-last exam Fwup weakness, falls, Type II TN, SVT, Hx of A. Fib, anemia, PAD with recent right BKA, leukocytosis/SIRS. Breathing easier. Diuresed well with IV lasix yesterday. Denies CP. Focused Exam Lactate Level 04/21/19 10:20: Lactic Acid Level 2.69*H 04/21/19 12:20: Lactic Acid Level 1.20 Objective Exam Vital Signs Date Time Temp Pulse Resp B/P (MAP) Pulse Ox O2 Delivery O2 Flow Rate FiO2 04/23/19 11:55 36.5 65 20 164/67 (99) 95 04/23/19 08:50 90 Nasal Cannula 3.00 04/23/19 07:46 37.0 96 22 164/88 (113) 94 High Flow N/C 3.00 04/23/19 06:17 85 04/23/19 03:46 37.2 93 22 129/79 (96) 95 High Flow N/C 6.00 04/23/19 02:39 140 04/23/19 01:00 73 04/23/19 00:55 37.0 76 26 189/87 (121) 91 High Flow N/C 6.00 04/22/19 21:00 90 Nasal Cannula 3.00 04/22/19 20:55 37.2 81 22 178/66 (103) 85 Room Air 04/22/19 19:11 70 04/22/19 17:01 37.5 69 18 187/71 (109) 93 Nasal Cannula 2.00 04/22/19 15:55 90 Nasal Cannula 2.00 04/22/19 14:15 37.1 66 92 28 04/22/19 13:00 67 I & O 04/23/19 07:00 Intake Total 1317.5 ml Output Total 2150 ml Balance -832.5 ml Capillary Refill : Less Than 3 Seconds General Appearance: No Apparent Distress Neck: Supple Respiratory: Lungs Clear, Decreased Breath Sounds Cardiovascular: Regular Rate, Rhythm, Systolic Murmur Gastrointestinal: normal bowel sounds, non tender, soft Extremity: Non Tender, No Calf Tenderness, No Pedal Edema, Other (Right BKA with dressing in place) Neurologic/Psychiatric: Alert, Oriented x3 Skin: Other (left lower leg with dressing in place) Results Lab Laboratory Tests 04/22/19 16:15: Lab Scanned Report Transfusion Reaction Form 04/23/19 03:37: White Blood Count 19.2H, Red Blood Count 3.20L, Hemoglobin 9.3L, Hematocrit 29L, Mean Corpuscular Volume 92, Mean Corpuscular Hemoglobin 29, Mean Corpuscular Hemoglobin Concent 32, Red Cell Distribution Width 17.4H, Platelet Count 669H, Mean Platelet Volume 12.2H, Neutrophils (%) (Auto) 81H, Lymphocytes (%) (Auto) 8L, Monocytes (%) (Auto) 10, Eosinophils (%) (Auto) 1, Basophils (%) (Auto) 0, Neutrophils # (Auto) 15.6H, Lymphocytes # (Auto) 1.4, Monocytes # (Auto) 1.9H, Eosinophils # (Auto) 0.2, Basophils # (Auto) 0.1, Sodium Level 144, Potassium Level 4.0, Chloride Level 107, Carbon Dioxide Level 21, Anion Gap 16H, Blood Urea Nitrogen 16, Creatinine 1.03, Estimat Glomerular Filtration Rate > 60, BUN/Creatinine Ratio 16, Glucose Level 109H, Calcium Level 9.7, Corrected Calcium 9.9, Phosphorus Level 4.2, Magnesium Level 1.8, Total Bilirubin 0.9, Aspartate Amino Transf (AST/SGOT) 23, Alanine Aminotransferase (ALT/SGPT) 58H, A lkaline Phosphatase 93, Troponin I 0.048H, Total Protein 6.9, Albumin 3.7, Triglycerides Level 102, Cholesterol Level 141, LDL Cholesterol Direct 97, VLDL Cholesterol 20, HDL Cholesterol 31L 04/23/19 07:55: Vancomycin Level Trough 15.9 Microbiology 04/21/19 Blood Culture - Preliminary, Resulted No growth 04/21/19 MRSA Screen - Final, Complete MRSA not isolated 04/21/19 Urine Culture - Final, Complete NO GROWTH Assessment/Plan Assessment/Plan Assess & Plan/Chief Complaint 1. Weakness/Falls--PT/OT started, will need Rehab vs SNF for DC 2. PAD with recent right BKA--has fwup with surgeon next week to assess wound 3. Type II TN--medical management 4. SVT on admit with history of A. Fib--in NSR 5. Pulmonary Edema--responded well to IV lasix, will start po lasix with potassium 6. Anemia with ringed sideroblasts--monitor H/H 7. COPD--on oxygen, SVNs 8. Leukocytosis/SIRS--on abx, awaiting finals on cultures Clinical Quality Measures Admission Status Admission Dx 1. Type II Myocardial Infarction--medical management per cardiology 2. Bilateral Pulmonary Edema--Diurese with lasix 3. Leukocytosis with likely pneumonia/SIRS--continue IV zosyn/Vanc and monitor WBC count/CXR/await cultures 4. History of Atrial Fibrillation with SVT on Admit--rate improved 5. Severe PVD with recent right BKA--will need assessment due to falls for either Rehab or back to [place] 6. 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 Pyoderma Gangrenosum--left leg lesion wrapped DVT/VTE Risk/Contraindication: Risk Factor Score Per Nursin RFS Level Per Nursing on Admit: 4+=Very High KEVIN BURCH DO Apr 23, 2019 12:22 POS
--- NOTE | 2019-04-23 14:00 | NUR ---
CM DISCHARGE PLANNING: SS referral received for exploration of out of home placement. Went to room to visit with patient about what his goals are for discharge. He is noted to be very hard of hearing et hears better out of his left ear. He becomes very angry about any discharge planning discussion. He reported to me that he is angry with me because of what I represent. I reassured him that he was in control et I was here to help him with whatever he thought he needed. During the discussion he sat up and put his hands in my face. I leaned far back in my chair et I thought he was going to strike at me. I asked him if he felt agitated et if he was going to hit at me. He yelled that he wasn't et then leaned back in bed. He also made very rude comments et laughed inappropriately at times during our visit. I was going to terminate visit et f/u with his doctor however I was able to get him to agree on having a family discussion about anticipated needs at discharge. He was agreeable to that et he reports that he wants his children involved in his care planning. I called et left a message with his daughter Janet. Janet came into the patient's room shortly after leaving her a message. Discussed above events et she reassured me that he is very angry at all of them at any given moment. She was not surprised by his behavior. We discussed his need for Physical et Occupational therapies to improve his strength et ultimately return home but that he is very self limiting et has refused therapies today. Janet is going to follow up with her sister et brother this evening et see if they can encourage him to participate for his well being. Will continue to follow along for any discharge planning needs.
--- NOTE | 2019-04-23 15:15 | NUR ---
Pt transferred to room 403. Received report from TRISHA Burroughs. This RN assumed care of pt at this time.
--- NOTE | 2019-04-23 16:56 | Progress Note ---
Standard Progress Note Progress Notes/Assess & Plan Date Seen by a Provider: Apr 23, 2019 Time Seen by a Provider: 16:38 Progress/Assessment & Plan 73-year-old male admitted with increasing weakness and palpitations. Found to have SVT with rapid rate, type II VT and fluid overload. Good results with diuresis. Patient has history of MDS since 2016 and initially was on treatment with hydroxyurea and more recently with anagrelide. Anagrelide has been stopped now as this could cause cardiac complications including atrial fibrillation/SVT or VT. 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 He underwent bone marrow evaluation at [facility] in March 2019. 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 According to NCCN guidelines treatment options controlled hypomethylating agents like Dacogen or Vidaza and or Lenalidomide. We will plan on starting him on Dacogen on Monday05/06/2019 because of Thanksgiving holidays next week. If the platelet count continues to increase rapidly, he will need either hydroxyurea or anagrelide temporarily. Continue current care as you're doing and adjust cardiac medications. Will f olyalow patient with you. Focused Exam Lactate Level 04/21/19 10:20: Lactic Acid Level 2.69*H 04/21/19 12:20: Lactic Acid Level 1.20 ESHA MORIN Apr 23, 2019 16:56 POS
[2019-04-23] MEDS: meTOprolol TARTRATE 25 MG (LOPRESSOR) TABLET PO SCH (20:48)
[2019-04-24 04:28] VITALS: BP 188/81
[2019-04-24 05:13] LABS: BASOPHILS # (AUTO) 0.1 10^3/uL (0.0-0.1); BASOPHILS % (AUTO) 1 % (0-10); EOSINOPHILS # (AUTO) 0.3 10^3/uL (0.0-0.3); EOSINOPHILS % (AUTO) 2 % (0-10); HEMATOCRIT 26 % (40-54); HEMOGLOBIN 8.1 G/DL (13.3-17.7); LYMPHOCYTES # (AUTO) 1.4 X 10^3 (1.0-4.0); LYMPHOCYTES % (AUTO) 8 % (12-44); MEAN CORPUSCULAR HEMOGLOBIN 29 PG (25-34); MEAN CORPUSCULAR HGB CONC 31 G/DL (32-36); MEAN CORPUSCULAR VOLUME 93 FL (80-99); MEAN PLATELET VOLUME 12.2 FL (7.4-10.4); MONOCYTES % (AUTO) 12 % (0-12); NEUTROPHILS # (AUTO) 13.7 X 10^3 (1.8-7.8); NEUTROPHILS % (AUTO) 78 % (42-75); PLATELET COUNT 902 10^3/uL (130-400); RED CELL DISTRIBUTION WIDTH 17.5 % (10.0-14.5); WHITE BLOOD COUNT 17.5 10^3/uL (4.3-11.0)
[2019-04-24 05:39] LABS: BUN/CREATININE RATIO 15; CALCIUM 8.8 MG/DL (8.5-10.1); CARBON DIOXIDE 23 MMOL/L (21-32); CHLORIDE 109 MMOL/L (98-107); CREATININE SERUM 1.03 MG/DL (0.60-1.30); GFR ESTIMATED > 60; GLUCOSE 76 MG/DL (70-105); PHOSPHORUS 4.4 MG/DL (2.3-4.7); SODIUM 145 MMOL/L (135-145)
[2019-04-24] MEDS: PIPERACILLIN/TAZOBACTAM (BULK) 4.5 GM in NS (IVPB) 100 ML IV SCH ×3 (05:56→20:48)
[2019-04-24] MEDS: KCL 8 MEQ (MICRO K) TABLET PO SCH (05:59)
[2019-04-24] MEDS: MAGNESIUM 1 GM/100 ML IVPB 100 ML IV SCH (06:01)
[2019-04-24] MEDS: KCL 20 MEQ TAB (K-DUR) PO SCH (06:01)
[2019-04-24] MEDS: POTASSIUM CL 10MEQ/50ML IVPB 50 ML IV SCH (06:01)
--- NOTE | 2019-04-24 07:23 | Diagnostic Imaging Report ---
INDICATION: Dyspnea. COMPARISON: 04/23/2019. FINDINGS: Cardiomegaly with bilateral interstitial and alveolar infiltrates are again noted. The infiltrates do appear slightly more dense today than on previous exam. There is some blunting of the costophrenic angles now as well. IMPRESSION: Increasing alveolar infiltrates with cardiomegaly as well as increasing basilar effusions. Dictated by: Dictated on workstation # [id number]
[2019-04-24 08:00] VITALS: BP 185/75
[2019-04-24] MEDS: DILTIAZEM 240 MG (CARDIZEM CD) CAP PO SCH (08:20)
[2019-04-24] MEDS: meTOprolol TARTRATE 50 MG (LOPRESSOR) TAB PO SCH ×2 (08:20→20:48)
[2019-04-24] MEDS: FUROSEMIDE 40 MG (LASIX) TAB PO SCH (08:20)
[2019-04-24] MEDS: ASPIRIN 81 MG CHEW (CHILDREN'S ASA) PO SCH (08:20)
[2019-04-24] MEDS: CLOPIDOGREL 75 MG (PLAVIX) TABLET PO SCH (08:20)
--- NOTE | 2019-04-24 08:42 | Pulmonary Progress Note ---
HEIDI SWEET A MEDICAL STUDENT 04/24/19 0842: Subjective Date Seen by a Provider: Apr 24, 2019 Time Seen by a Provider: 08:36 Subjective/Events-last exam Pt states he is feeling better. Pt was refusing breathing treatments and PT yesterday. Pt states that he will do 5 breathing treatments and will cooperate with PT today. Sepsis Event Evaluation Height, Weight, BMI Height: 6'1.00" Weight: 196lbs. oz. 88.493640ez; 23.70 BMI Method:Stated Focused Exam Lactate Level 04/21/19 10:20: Lactic Acid Level 2.69*H 04/21/19 12:20: Lactic Acid Level 1.20 Exam Exam Vital Signs Date Time Temp Pulse Resp B/P (MAP) Pulse Ox O2 Delivery O2 Flow Rate FiO2 04/24/19 08:00 36.6 64 22 185/75 (111) 92 Nasal Cannula 3.00 04/24/19 04:28 37.0 63 22 188/81 (116) 93 Nasal Cannula 3.00 04/23/19 23:30 37.0 61 22 160/74 (102) 93 Nasal Cannula 2.00 04/23/19 22:02 155/90 (111) 93 Nasal Cannula 2.50 04/23/19 21:00 90 Nasal Cannula 2.50 04/23/19 19:06 36.7 71 23 190/87 (121) 87 04/23/19 15:24 37.1 62 20 180/86 (117) 91 04/23/19 11:55 36.5 65 20 164/67 (99) 95 04/23/19 08:50 90 Nasal Cannula 3.00 I & O 04/24/19 07:00 Intake Total 1415 ml Output Total 1250 ml Balance 165 ml Height & Weight Height: 6'1.00" Weight: 196lbs. oz. 88.885268ve; 23.70 BMI Method:Stated General Appearance: No Apparent Distress HEENT: Normal ENT Inspection, Other (hearing loss) Neck: Supple Respiratory: Lungs Clear, Decreased Breath Sounds Cardiovascular: Regular Rate, Rhythm, Systolic Murmur Capillary Refill: Less Than 3 Seconds Gastrointestinal: normal bowel sounds, non tender, soft Extremity: Non Tender, No Calf Tenderness, No Pedal Edema, Other (Right BKA with dressing in place) Neurologic/Psychiatric: Alert, Oriented x3 Skin: Other (left lower leg with dressing in place) Lymphatic: No Adenopathy Results Lab Laboratory Tests 04/23/19 03:37 04/24/19 04:00 Assessment/Plan Assessment/Plan Leukocytosis r/o Pneumonia -[place] cultures negative as of 04/24 -cxr on 04/24 showed increasing infiltrates and increasing basilar effusions -Continue Vanco/Zosyn PVD -s/p right BKA -clopidogrel Chest pain -Cardiology consulted -type 2 UT Anemia secondary to MDS -s/p 2 units PRBC -heme-onc following Acute CHF -BNP 570 -Echo 04/22 showed EF 55-65% -Bilateral pulmonary edema -iman diuresis secondary to increasing creat Hx HTN Suspected COPD -Duoneb RTQ6 -Duoneb Q4 PRN JUANITO KIMBALL DO 04/24/19 1029: Subjective Subjective/Events-last exam Pt is feeling better. He is still very grumpy and refusing treatments. Exam Exam General Appearance: No Apparent Distress HEENT: Normal ENT Inspection, Other (hearing loss) Respiratory: Lungs Clear, Decreased Breath Sounds Cardiovascular: Regular Rate, Rhythm, Systolic Murmur Gastrointestinal: normal bowel sounds, non tender, soft Extremity: Non Tender, No Calf Tenderness, No Pedal Edema, Other (Right BKA with dressing in place) Neurologic/Psychiatric: Alert, Oriented x3 Lymphatic: No Adenopathy Assessment/Plan Assessment/Plan Pneumonia -[place] cultures negative as of 04/24 -cxr on 04/24 showed increasing infiltrates and increasing basilar effusions -Continue Vanco/Zosyn PVD -s/p right BKA -clopidogrel Chest pain -Cardiology consulted -type 2 UT Anemia secondary to MDS -s/p 2 units PRBC -heme-onc following Acute CHF -BNP 570 -Echo 04/22 showed EF 55-65% -Bilateral pulmonary edema -iman diuresis secondary to increasing creat Hx HTN Suspected COPD -Duoneb RTQ6 -Duoneb Q4 PRN HEIDI SWEET MEDICAL STUDENT Apr 24, 2019 08:42 JUANITO WESLEY DO Apr 24, 2019 10:29 POS
--- NOTE | 2019-04-24 08:48 | Cardiology Progress Note ---
Subjective Date Seen by Provider: Apr 24, 2019 Time Seen by Provider: 08:30 Subjective/Events-last exam Patient asleep in bed, easily awakens, but states he does not want to answer any question. No apparent distress. Review of Systems General: No Chills, No Night Sweats, No Fatigue, No Malaise, No Appetite, No Other HEENT: No Head Aches, No Visual Changes, No Eye Pain, No Ear Pain, No Dysphasia, No Sinus Congestion, No Post Nasal Drip, No Sore Throat, No Other Pulmonary: No Dyspnea, No Cough, No Pleuritic Chest Pain, No Other Cardiovascular: No: Chest Pain, Palpitations, Orthopnea, Paroxysmal Noc. Dyspnea, Edema, Lt Headedness, Other Focused Exam Lactate Level Objective-Cardiology Exam Last Set of Vital Signs Vital Signs 04/22/19 04/24/19 14:15 12:00 Temp 36.8 Pulse 52 Resp 20 B/P (MAP) 148/81 (103) Pulse Ox 97 O2 Delivery Nasal Cannula O2 Flow Rate 3.00 FiO2 28 Capillary Refill : Less Than 3 Seconds I&O Intake and Output 04/24/19 00:00 Intake Total 1335 ml Output Total 1200 ml Balance 135 ml Intake Oral 1215 ml IV Total 120 ml Output Urine Total 1200 ml # Voids 10 General: Alert, Oriented X3, Cooperative HEENT: Atraumatic, PERRLA Neck: Supple, No JVD, No Thyromegaly Lungs: Clear to Auscultation, Normal Air Movement Heart: Regular Rate, Normal S1, Normal S2, No Murmurs Abdomen: Normal Bowel Sounds, Soft, No Tenderness, No Hepatosplenomegaly, No Masses Extremities: No Clubbing, No Cyanosis, No Edema, No Tenderness/Swelling, Other (Right BKA) Skin: No Rashes, No Breakdown, No Significant Lesion Neuro: Normal Speech, Normal Tone, Sensation Intact Psych/Mental Status: Mood NL Results Lab Laboratory Tests 04/24/19 04:00 A/P-Cardiology Admission Diagnosis Type II myocardial infarction Chest pain Palpitation Peripheral arterial disease Hypertension Assessment/Plan Type II myocardial infarction, slight elevation in troponin probably secondary to tachycardia, underlying coronary artery disease cannot be excluded. Denied any chest pain, clinically stable. Continue to monitor Chest pain, occurred during his tachycardia episode, currently not having active chest pain, EKG did not show acute changes, planning to do Lexiscan stress test as an outpatient Peripheral arterial disease status post right BKA, had nonhealing ulcer and failed multiple interventions in the past, still having ulcer at the stump site, consult Dr Carrillo Palpitation, history of paroxysmal atrial fibrillation, on admission he had supraventricular tachycardia, probably reentry tachycardia, currently in sinus rhythm. Continue to monitor Leukocytosis, maintained on prednisone, septic workup initiated, started on antibiotics. Managed by primary care physician Tobaccoism, educated on smoking cessation COPD, could not tolerate bronchodilator. Consult Dr. Wolff Hypertension, poor control, add lisinopril 5 mg daily and monitor tolerance and response Hyperlipidemia, monitor lipids Family history of heart disease Patient was seen and evaluated with Fawn, examination performed, management plan was discussed, agree with the current scribed note, I made few changes to the note using Italic font Patient is feeling better. No new complaint I had lisinopril 5 mg daily Planning for stress test as an outpatient Clinical Quality Measures DVT/VTE Risk/Contraindication: Risk Factor Score Per Nursin RFS Level Per Nursing on Admit: 4+=Very High Supervisory-Addendum Brief Supervisory Addendum Participated in pt care: history, MDM, physical Personally performed: exam, history, MDM Care discussed with: FAWN HUANG Apr 24, 2019 08:48 JULISSA HUITRON MD Apr 24, 2019 16:39 POS
--- NOTE | 2019-04-24 09:15 | NUR ---
CM DISCHARGE PLANNING: Daughter Janet contacted me this a.m. et reported that they had a family meeting last night and talked with Silver[place]. They expressed their concerns with him et encouraged him to participate with therapy to continue to stronger for ultimate goal of returning home. They talked about not being able to go home from this hospital stay et wanting him to go to a halfway facility for continued strengthening. They report he is in agreement with this et have asked for a referral to be sent to [facility]. [facility] does not have male beds available at this time. Second choice was [facility]. [facility] does have bed availability. Referral faxed to them at this time with anticipated discharge date of 04/25/19. Will f/u with Dr. Gallegos to confirm d/c date if known.
--- NOTE | 2019-04-24 11:23 | Occupational Ther Daily Note ---
OT Current Status-Daily Note Subjective Pt alert, lying in bed. Pt SEMINOLE, pt request to talk more to L ear. Pt's daughter states that pt had shower last evening and pt stated that he didn't know if he had a good shower since he had 3 wounds. Pt agrees to therapy. Mental Status/Objective Patient Orientation: Person, Place, Time, Situation Attachments: IV ADL-Treatment Therapy Code Descriptions/Definitions Functional [place] Measure: 0=Not Assessed/NA 4=Minimal Assistance 1=Total Assistance 5=Supervision or Setup 2=Maximal Assistance 6=Modified [place] 3=Moderate Assistance 7=Complete IndependenceSCALE: Activities may be completed with or without assistive devices. 6-Qgxwixtzcg-evnyxkn completes the activity by him/herself with no assistance from a helper. 5-Set-up or Clean-up Assistance-helper sets up or cleans up; patient completes activity. [place] assists only prior to or following the activity. 4-Supervision or Touching Assistance-helper provides verbal cues and/or touching/steadying and/or contact guard assistance as patient completes activity . Assistance may be provided throughout the activity or intermittently. 3-Partial/Moderate Assistance-helper does LESS THAN HALF the effort. [place] lifts, holds or supports trunk or limbs, but provides less than half the effort. 2-Substantial/Maximal Assistance-helper does MORE THAN HALF the effort. [place] lifts or holds trunk or limbs and provides more than half the effort. 1-Nwyoqtmgo-ofjpqt does ALL the effort. Patient does none of the effort to complete the activity. Or, the assistance of 2 or more helpers is required for the patient to complete the activity. If activity was not attempted, code reason: 7-Patient Refused. 9-Not Applicable-not attempted and the patient did not perform the activity before the current illness, exacerbation or injury. 10-Not Attempted due to Environmental Limitations-(lack of equipment, weather restraints, etc.). 88-Not Attempted due to Medical Conditions or Safety Concerns. Other Treatment Pt agrees to complete UE strengthening exercises to increase strength and activity tolerance for transfers and daily functional tasks. 2 sets 5 reps of arm chair pushups completed, one set on EOB then one set in chair, pt had no difficulty. Then UE exercises against gravity for shldr strengthening in all planes, 20 reps without breaks. Pt complete modified SPT EOB<--> chair with CGA, difficulty with clearing arm rest of chair. Independent with bed mobility. Call light/phone in reach after session. Daughter present in room. All needs met in room. OT Longterm Goals Animal Care Assistant Goals Time Frame: May 07, 2019 Eating (QC): 6 Oral Hygiene (QC): 6 Toileting Hygiene (QC): 6 Shower/Bathe Self (QC): 5 Upper Body Dressing (QC): 5 Lower Body Dressing (QC): 5 On/Off Footwear (QC): 5 Additional Goals: 1-Demonstrate ADL Tasks, 2-Verbalize Understanding, 3- ImproveStrength/Harjinder 1=Demonstrate adherence to instructed precautions during ADL tasks. 2=Patient will verbalize/demonstrate understanding of assistive devices/modifications for ADL. 3=Patient will improve strength/tolerance for activity to enable patient to perform ADL's. OT Education/Plan Problem List/Assessment Assessment: Decreased Activ Tolerance, Decreased UE Strength, Impaired Coordination, Impaired Funct Balance Discharge Recommendations Plan/Recommendations: Continue POC Treatment Plan/Plan of Care Patient would benefit from OT for education, treatment and training to promote independence in ADL's, mobility, safety and/or upper extremity function for ADL's. Plan of Care: ADL Retraining, Caregiver Training, Functional Mobility, UE Funct Exercise/Act Treatment Duration: May 07, 2019 Frequency: 5 times per week Estimated Hrs Per Day: .25 hour per day Agreement: Yes Rehab Potential: Guarded Time/GCodes Start Time: 10:05 Stop Time: 10:20 Total Time Billed (hr/min): 15 Billed Treatment Time 1 visit-EX 1 (15 min) ATIYA ZARATE Apr 24, 2019 11:23 POS
--- NOTE | 2019-04-24 11:48 | Physical Therapy Evaluation ---
PT Evaluation-General Medical Diagnosis Admission Date Apr 22, 2019 at 12:21 Medical Diagnosis: Type II myocardial infarction Onset Date: Apr 22, 2019 Therapy Diagnosis Therapy Diagnosis: abn gait, weakness, impaired balance, decreased activity isac Height/Weight Height (Feet): 6 Height (Inches): 1.00 Weight (Pounds): 196 Precautions Precautions/Isolations: Fall Prevention, Standard Precautions Weight Bear Status Right Lower Extremity: Right Weight Bearing/Tolerated Left Lower Extremity: Left Weight Bearing/Tolerated Referral Physician: Dr. 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 6-Igknoklgho-bhzytux completes the activity by him/herself with no assistance from a helper. 5-Set-up or Clean-up Assistance-helper sets up or cleans up; patient completes activity. [place] assists only prior to or following the activity. 4-Supervision or Touching Assistance-helper provides verbal cues and/or touching/steadying and/or contact guard assistance as patient completes activity. Assistance may be provided throughout the activity or intermittently. 3-Partial/Moderate Assistance-helper does LESS THAN HALF the effort. [place] lifts, holds or supports trunk or limbs, but provides less than half the effort. 2-Substantial/Maximal Assistance-helper does MORE THAN HALF the effort. [place] lifts or holds trunk or limbs and provides more than half the effort. 9-Rnmblvnjk-xrulqc does ALL the effort. Patient does none of the effort to complete the activity. Or, the assistance of 2 or more helpers is required for the patient to complete the activity. If activity was not attempted, code reason: 7-Patient Refused. 9-Not Applicable-not attempted and the patient did not perform the activity before the current illness, exacerbation or injury. 10-Not Attempted due to Environmental Limitations-(lack of equipment, weather restraints, etc.). 88-Not Attempted due to Medical Conditions or Safety Concerns. Bed Mobility: 6 Transfers (B,C,W/C): 6 Gait: 6 Stairs: 88 Indoor Mobility (Ambulation): Independent Stairs: Dependent Prior Devices Use: Manual wheelchair, Walker pt daughter reports the pt has been able to get around on his own. reports pt was able to get up and use his walker to get to and from short distances but would use the WC for long distances. PT Evaluation-Current Subjective pt in bed pre-tx agrees to therapy no pain reported. pt in WC post-tx with daughter in room, call light, room phone, tray table in reach with all needs met at this time. Pt/Family Goals goal is to get back home and continue being able to take steps. Objective Patient Orientation: Person, Place, Situation Attachments: IV RLE wrapped. ROM/Strength Strength Lower Extremities B/L hip flexion 4/5 B/L knee flexion/extension 5/5 Integumentary/Posture Integumentary see nursing notes Bowel Incontinence: No Bladder Incontinence: No Sensory Vision: Functional Hearing: Deaf Sensation Right Lower Extremit: Intact Sensation Left Lower Extremity: Intact Transfers Roll Left to Right (QC): 6 Sit to Lying (QC): 9 Lying to Sitting/Side of Bed(Q: 6 Sit to Stand (QC): 3 (Og) Chair/Hxz-cd-Ysxje Xfer(QC): 3 (Og) Car Transfer (QC): 9 Gait Does the Patient Walk?: Yes Mode of Locomotion: Both Anticipated Mode of Locomotion: Both Walk 10 feet (QC): 4 (CGA) Walk 50 ft with 2 Turns(QC): 88 Walk 150 ft (QC): 88 Walking 10ft/uneven surface-QC: 88 Distance: 10' Gait Assistive Device: FWW Wheelchair Training Does the Pt Use a Wheelchair?: No Wheel 50 ft with 2 turns (QC): 88 Wheel 150 ft (QC): 8 Type of Wheelchair: Manual Stairs 1 Step (curb) (QC): 88 4 Steps (QC): 88 12 Steps (QC): 88 Balance Sitting Static: Normal Sitting Dynamic: Good Standing Static: Good Standing Dynamic: Good Picking up an Object (QC): 88 Treatment pt performed bed mobility training, transfer training, skilled ambulation training, education, and functional LE strengthening exercises (seated EOB 10reps: LAQ, marching) Assessment/Needs pt is slightly impulsive and has his way of getting around and does not accept education openly but otherwise is pleasant for therapy. Pt overall strength is functional and pt is able to transfer and ambulate. Rehab Potential: Good PT Field Director Goals Retirement Goals PT Field Director Goals Time Frame: May 01, 2019 Roll Left & Right (QC): 6 Sit to Lying (QC): 6 Lying-Sitting on Side/Bed(QC): 6 Sit to Stand (QC): 6 Chair/Wmi-xt-Eluqs Xfer(QC): 6 Toilet Transfer (QC): 6 Car Transfer (QC): 9 Does the Patient Walk: Yes Walk 10 feet (QC): 4 (SBA) Walk 50ft with 2 Turns (QC): 9 Walk 150 ft (QC): 9 Walking 10ft on Uneven Surface: 9 1 Step (curb) (QC): 3 (Og) 4 Steps (QC): 9 12 Steps (QC): 9 Picking up an Object (QC): 9 Does the Pt use WC or Scooter?: No Wheel 50 feet with 2 turns (QC: 9 Type: Manual Wheel 150 feet: 9 Type: Manual PT Plan Problem List Problem List: Activity Tolerance, Functional Strength, Safety, Balance, Gait, Transfer, Bed Mobility, ROM Treatment/Plan Treatment Plan: Continue Plan of Care Treatment Plan: Bed Mobility, Education, Functional Activity Harjinder, Functional Strength, Group Therapy, Gait, Safety, Therapeutic Exercise, Transfers Treatment Duration: May 01, 2019 Frequency: 6 times per week Estimated Hrs Per Day: .25 hour per day Patient and/or Family Agrees t: Yes Safety Risks/Education Patient Education: Gait Training, Transfer Techniques, Correct Positioning, Safety Issues Teaching Recipient: Patient, Family Teaching Methods: Demonstration, Discussion Response to Teaching: Return Demonstration, Reinforcement Needed Discharge Recommendations Plan pt will perform functional LE strengthening, skilled ambulation training, bed mobility training, transfer training, and education. Time/GCodes Time In: 1104 Time Out: 1118 Total Billed Treatment Time: 14 Total Billed Treatment 1 visit SCOOTER RAINES PT Apr 24, 2019 11:48 POS
[2019-04-24 12:00] VITALS: BP 148/81
[2019-04-24] MEDS ORDERED: VANCOMYCIN INJECTION 0.1 MG in NS (IVPB) 250 ML IV SCH (12:15)
--- NOTE | 2019-04-24 12:36 | Progress Note ---
Subjective Date Seen by a Provider: Apr 24, 2019 Time Seen by a Provider: 12:34 Subjective/Events-last exam Fwup weakness, falls, Type II LA, SVT, Hx of A. Fib, anemia, PAD with recent right BKA, leukocytosis/SIRS. More agreeable with treatments and therapies today. Objective Exam Vital Signs Date Time Temp Pulse Resp B/P (MAP) Pulse Ox O2 Delivery O2 Flow Rate FiO2 04/24/19 09:29 93 Nasal Cannula 2.00 04/24/19 08:45 92 Nasal Cannula 3.00 04/24/19 08:00 36.6 64 22 185/75 (111) 92 Nasal Cannula 3.00 04/24/19 04:28 37.0 63 22 188/81 (116) 93 Nasal Cannula 3.00 04/23/19 23:30 37.0 61 22 160/74 (102) 93 Nasal Cannula 2.00 04/23/19 22:02 155/90 (111) 93 Nasal Cannula 2.50 04/23/19 21:00 90 Nasal Cannula 2.50 04/23/19 19:06 36.7 71 23 190/87 (121) 87 04/23/19 15:24 37.1 62 20 180/86 (117) 91 I & O 04/24/19 07:00 Intake Total 1415 ml Output Total 1250 ml Balance 165 ml Capillary Refill : Less Than 3 Seconds General Appearance: No Apparent Distress Neck: Supple Respiratory: Lungs Clear, Decreased Breath Sounds Cardiovascular: Regular Rate, Rhythm, Systolic Murmur Extremity: Non Tender, No Calf Tenderness, No Pedal Edema Neurologic/Psychiatric: Alert Skin: Warm/Dry, Other Results Lab Laboratory Tests 04/24/19 04:00: White Blood Count 17.5H, Red Blood Count 2.81L, Hemoglobin 8.1L, Hematocrit 26L, Mean Corpuscular Volume 93, Mean Corpuscular Hemoglobin 29, Mean Corpuscular Hemoglobin Concent 31L, Red Cell Distribution Width 17.5H, Platelet Count 902H, Mean Platelet Volume 12.2H, Neutrophils (%) (Auto) 78H, Lymphocytes (%) (Auto) 8L, Monocytes (%) (Auto) 12, Eosinophils (%) (Auto) 2, Basophils (%) (Auto) 1, Neutrophils # (Auto) 13.7H, Lymphocytes # (Auto) 1.4, Monocytes # (Auto) 2.0H, Eosinophils # (Auto) 0.3, Basophils # (Auto) 0.1, Sodium Level 145, Potassium Level 4.0, Chloride Level 109H, Carbon Dioxide Level 23, Anion Gap 13, Blood Urea Nitrogen 15, Creatinine 1.03, Estimat Glomerular Filtration Rate > 60, BUN/Creatinine Ratio 15, Glucose Level 76, Calcium Level 8.8, Phosphorus Level 4.4, Magnesium Level 2.0, B-Type Natriuretic Peptide 711.3H Microbiology 04/21/19 Blood Culture - Preliminary, Resulted No growth 04/21/19 MRSA Screen - Final, Complete MRSA not isolated 04/21/19 Urine Culture - Final, Complete NO GROWTH Assessment/Plan Assessment/Plan Assess & Plan/Chief Complaint 1. Weakness/Falls--PT/OT started, will need Rehab vs SNF for DC, may need SWING bed for continued IV abx 2. PAD with recent right BKA--has fwup with surgeon next week to assess wound 3. Type II LA--medical management 4. SVT on admit with history of A. Fib--in NSR 5. Pulmonary Edema--responded well to IV lasix, will start po lasix with p otassium 6. Anemia with ringed sideroblasts--monitor H/H, oncology consulted 7. COPD--on oxygen, SVNs 8. Leukocytosis/Pneumonia/SIRS--still on zosyn but Vanc was discontinued when transferred yesterday so will resume Vancomycin Clinical Quality Measures Admission Status Admission Dx 1. Type II Myocardial Infarction--medical management per cardiology 2. Bilateral Pulmonary Edema--Diurese with lasix 3. Leukocytosis with likely pneumonia/SIRS--continue IV zosyn/Vanc and monitor WBC count/CXR/await cultures 4. History of Atrial Fibrillation with SVT on Admit--rate improved 5. Severe PVD with recent right BKA--will need assessment due to falls for either Rehab or back to [place] 6. 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 Pyoderma Gangrenosum--left leg lesion wrapped DVT/VTE Risk/Contraindication: Risk Factor Score Per Nursin RFS Level Per Nursing on Admit: 4+=Very High KEVIN BURCH DO Apr 24, 2019 12:36 POS
[2019-04-24] MEDS ORDERED: VANCOMYCIN 1,750 MG/NS 500 ML IVPB IV NR ×2 (12:45)
--- NOTE | 2019-04-24 13:16 | NUR ---
F/U with [facility] staff Nohemi rodriguez she reports they have received the referral that I sent this a.m. She reports that they are reviewing the information et will have an answer for acceptance vs denial by the end of business today. I let her know that doctor is anticipating discharge at the end of the week vs early next week. Addendum: 04/24/19 at 1319 by IVAN RANGEL RN Updated patient et daughter Janet who is in the room with patient of the above information.
--- NOTE | 2019-04-24 14:38 | Progress Note ---
Standard Progress Note Progress Notes/Assess & Plan Date Seen by a Provider: Apr 24, 2019 Time Seen by a Provider: 14:36 Progress/Assessment & Plan 73-year-old male admitted with increasing weakness and palpitations. Found to have SVT with rapid rate, type II [place] and fluid overload. Good results with diuresis. Patient has history of MDS since 2016 and initially was on treatment with hydroxyurea and more recently with anagrelide. Anagrelide has been stopped now as this could cause cardiac complications including atrial fibrillation/SVT or TX. 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 He underwent bone marrow evaluation at [facility] in March 2019. 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 According to NCCN guidelines treatment options include hypomethylating agents like Dacogen or Vidaza and or Lenalidomide. We will plan on starting him on Dacogen on Monday05/06/2019 because of Thanks[place] holidays next week. Platelet count 902,000 today and increasing rapidly. Unable to use anagrelide because of cardiac problems. We'll start patient on hydroxyurea 1000 mg twice daily to control the counts. Monitor labwork daily. Will follow patient with you. ESHA MORIN Apr 24, 2019 14:38 POS
[2019-04-24 16:00] VITALS: BP 171/75
[2019-04-24] MEDS: HYDROXYUREA 500 MG CAP (HYDREA) PO SCH (16:38)
[2019-04-24] MEDS: lisINopril 5 MG (PRINIVIL) TABLET PO SCH (17:04)
[2019-04-24 20:00] VITALS: BP 176/79
[2019-04-24] MEDS: meTOprolol TARTRATE 25 MG (LOPRESSOR) TABLET PO SCH (20:48)
[2019-04-24] MEDS ORDERED: HYDROXYUREA 500 MG CAP (HYDREA) PO SCH (21:00)
[2019-04-24 23:46] VITALS: BP 173/65
[2019-04-25] MEDS ORDERED: VANCOMYCIN 1250 MG/NS 250 ML IVPB IV SCH ×2 (01:00)
[2019-04-25 03:20] VITALS: BP 170/72
[2019-04-25 03:38] LABS: BASOPHILS # (AUTO) 0.1 10^3/uL (0.0-0.1); BASOPHILS % (AUTO) 1 % (0-10); EOSINOPHILS # (AUTO) 0.3 10^3/uL (0.0-0.3); EOSINOPHILS % (AUTO) 2 % (0-10); HEMATOCRIT 28 % (40-54); HEMOGLOBIN 8.6 G/DL (13.3-17.7); LYMPHOCYTES # (AUTO) 1.1 X 10^3 (1.0-4.0); LYMPHOCYTES % (AUTO) 7 % (12-44); MEAN CORPUSCULAR HEMOGLOBIN 29 PG (25-34); MEAN CORPUSCULAR HGB CONC 31 G/DL (32-36); MEAN CORPUSCULAR VOLUME 93 FL (80-99); MEAN PLATELET VOLUME 11.8 FL (7.4-10.4); MONOCYTES # (AUTO) 1.8 X 10^3 (0.0-1.0); MONOCYTES % (AUTO) 11 % (0-12); NEUTROPHILS # (AUTO) 12.2 X 10^3 (1.8-7.8); NEUTROPHILS % (AUTO) 79 % (42-75); RED CELL DISTRIBUTION WIDTH 17.5 % (10.0-14.5); WHITE BLOOD COUNT 15.5 10^3/uL (4.3-11.0)
[2019-04-25 03:41] LABS: PLATELET COUNT 1324 10^3/uL (130-400)
[2019-04-25 03:54] LABS: BUN/CREATININE RATIO 13; CALCIUM 8.6 MG/DL (8.5-10.1); CARBON DIOXIDE 22 MMOL/L (21-32); CHLORIDE 107 MMOL/L (98-107); CREATININE SERUM 1.08 MG/DL (0.60-1.30); GFR ESTIMATED > 60; GLUCOSE 78 MG/DL (70-105); MAGNESIUM 1.9 MG/DL (1.6-2.4); POTASSIUM 3.3 MMOL/L (3.6-5.0); SODIUM 143 MMOL/L (135-145)
[2019-04-25] MEDS: KCL 20 MEQ TAB (K-DUR) PO ONE ×2 (05:01→05:16)
[2019-04-25] MEDS: HYDROXYUREA 500 MG CAP (HYDREA) PO SCH ×2 (05:01→16:45)
[2019-04-25] MEDS: KCL 8 MEQ (MICRO K) TABLET PO SCH (05:01)
[2019-04-25] MEDS: PIPERACILLIN/TAZOBACTAM (BULK) 4.5 GM in NS (IVPB) 100 ML IV SCH ×3 (05:03→21:13)
[2019-04-25] MEDS: KCL 20 MEQ TAB (K-DUR) PO SCH (05:19)
[2019-04-25] MEDS: MAGNESIUM 1 GM/100 ML IVPB 100 ML IV SCH (05:19)
[2019-04-25] MEDS: POTASSIUM CL 10MEQ/50ML IVPB 50 ML IV SCH (05:19)
--- NOTE | 2019-04-25 07:45 | Diagnostic Imaging Report ---
INDICATION: Dyspnea. FINDINGS: Upright portable AP view of the chest is obtained. Since the examination of one day earlier, extensive mixed interstitial and alveolar densities in both lungs are stable or mildly improved. There is no evidence of pneumothorax. No significant pleural fluid is seen. IMPRESSION: Bilateral airspace disease has shown slight interval improvement. Findings remain compatible with pulmonary edema possibly secondary to congestive heart failure. Dictated by: Dictated on workstation # [id number]
[2019-04-25 07:56] VITALS: BP 151/67
[2019-04-25] MEDS ORDERED: KCL 20 MEQ TAB (K-DUR) PO ONE (08:00)
--- NOTE | 2019-04-25 08:13 | Cardiology Progress Note ---
Subjective Date Seen by Provider: Apr 25, 2019 Time Seen by Provider: 08:11 Subjective/Events-last exam Patient is sitting up bed, no new complaints. Denies any chest pain or dyspnea. Asking to go home. Review of Systems General: No Chills, No Night Sweats, No Fatigue, No Malaise, No Appetite, No Other HEENT: No Head Aches, No Visual Changes, No Eye Pain, No Ear Pain, No Dysphasia, No Sinus Congestion, No Post Nasal Drip, No Sore Throat, No Other Pulmonary: No Dyspnea, No Cough, No Pleuritic Chest Pain, No Other Cardiovascular: No: Chest Pain, Palpitations, Orthopnea, Paroxysmal Noc. Dyspnea, Edema, Lt Headedness, Other Objective-Cardiology Exam Last Set of Vital Signs Vital Signs 04/22/19 04/25/19 14:15 07:56 Temp 36.8 Pulse 60 Resp 20 B/P (MAP) 151/67 (95) Pulse Ox 93 O2 Delivery High Flow N/C O2 Flow Rate 3.00 FiO2 28 Capillary Refill : Less Than 3 Seconds I&O Intake and Output 04/25/19 00:00 Intake Total 2037.5 ml Output Total 1750 ml Balance 287.5 ml Intake Oral 1400 ml IV Total 637.5 ml Output Urine Total 1750 ml # Voids 1 # Bowel Movements 1 General: Alert, Oriented X3, Cooperative HEENT: Atraumatic, PERRLA Neck: Supple, No JVD, No Thyromegaly Lungs: Clear to Auscultation, Normal Air Movement Heart: Regular Rate, Normal S1, Normal S2, No Murmurs Abdomen: Normal Bowel Sounds, Soft, No Tenderness, No Hepatosplenomegaly, No Masses Extremities: No Clubbing, No Cyanosis, No Edema, No Tenderness/Swelling, Other (Right BKA) Skin: No Rashes, No Breakdown, No Significant Lesion Neuro: Normal Speech, Normal Tone, Sensation Intact Psych/Mental Status: Mood NL Results Lab Laboratory Tests 04/25/19 03:02 A/P-Cardiology Admission Diagnosis Type II myocardial infarction Chest pain Palpitation Peripheral arterial disease Hypertension Assessment/Plan Type II myocardial infarction, slight elevation in troponin probably secondary to tachycardia, underlying coronary artery disease cannot be excluded. Denied a ny chest pain, clinically stable. Continue to monitor Chest pain, occurred during his tachycardia episode, currently not having active chest pain, EKG did not show acute changes, planning to do Lexiscan stress test as an outpatient Peripheral arterial disease status post right BKA, had nonhealing ulcer and failed multiple interventions in the past, still having ulcer at the stump s ite,continue to monitor. Palpitation, history of paroxysmal atrial fibrillation, on admission he had supraventricular tachycardia, probably reentry tachycardia, currently in sinus rhythm. Continue to monitor Thrombocytosis, MDS, starting hydroxyurea, add IVF and monitor, managed by Dr Hannah Leukocytosis, maintained on prednisone, septic workup initiated, started on antibiotics. Managed by primary care physician Tobaccoism, educated on smoking cessation COPD, could not tolerate bronchodilator. Consult Dr. Wolff Hypertension, poor control, lisinopril added yesterday, continue to monitor Hyperlipidemia, monitor lipids Family history of heart disease Patient was seen and evaluated with Fawn, examination performed, management plan was discussed, agree with the current scribed note, I made few changes to the note using Italic font Starting IV fluids, monitor platelet count closely Currently not having active chest pain, planning to do stress test as an outpatient Noncompliant Clinical Quality Measures DVT/VTE Risk/Contraindication: Risk Factor Score Per Nursin RFS Level Per Nursing on Admit: 4+=Very High Supervisory-Addendum Brief Supervisory Addendum Participated in pt care: history, MDM, physical Personally performed: exam, history, MDM Care discussed with: FAWN HUANG Apr 25, 2019 08:13 JULISSA HUITRON MD Apr 25, 2019 08:29 POS
[2019-04-25] MEDS: DILTIAZEM 240 MG (CARDIZEM CD) CAP PO SCH (08:28)
[2019-04-25] MEDS: lisINopril 5 MG (PRINIVIL) TABLET PO SCH (08:28)
[2019-04-25] MEDS: FUROSEMIDE 40 MG (LASIX) TAB PO SCH (08:28)
[2019-04-25] MEDS: ASPIRIN 81 MG CHEW (CHILDREN'S ASA) PO SCH (08:28)
[2019-04-25] MEDS: CLOPIDOGREL 75 MG (PLAVIX) TABLET PO SCH (08:28)
[2019-04-25] MEDS: meTOprolol TARTRATE 50 MG (LOPRESSOR) TAB PO SCH ×2 (08:28→21:13)
[2019-04-25] MEDS ORDERED: NS IV 1000 ML 1,000 ML IV SCH (08:30)
--- NOTE | 2019-04-25 09:09 | Pulmonary Progress Note ---
HEIDI SWEET A MEDICAL STUDENT 04/25/19 0909: Subjective Date Seen by a Provider: Apr 25, 2019 Time Seen by a Provider: 09:04 Subjective/Events-last exam Pt states he feels better than yesterday, has not had any shortness of breath. Pt states that he had PT yesterday and states that he could do PT longer. Pt s tates he was cooperative with his breathing treatments yesterday Sepsis Event Evaluation Height, Weight, BMI Height: 6'1.00" Weight: 196lbs. oz. 88.711441dx; 23.70 BMI Method:Stated Exam Exam Vital Signs Date Time Temp Pulse Resp B/P (MAP) Pulse Ox O2 Delivery O2 Flow Rate FiO2 04/25/19 07:56 36.8 60 20 151/67 (95) 93 High Flow N/C 3.00 04/25/19 03:20 36.9 72 20 170/72 (104) 93 Nasal Cannula 2.50 04/24/19 23:46 36.9 58 20 173/65 (101) 90 Nasal Cannula 2.50 04/24/19 21:35 Nasal Cannula 2.00 04/24/19 20:10 Nasal Cannula 2.50 04/24/19 20:00 37.0 62 18 176/79 (111) 96 Nasal Cannula 2.50 04/24/19 16:00 37.0 54 18 171/75 (107) 94 Nasal Cannula 3.00 04/24/19 12:00 36.8 52 20 148/81 (103) 97 Nasal Cannula 3.00 04/24/19 09:29 93 Nasal Cannula 2.00 I & O 04/25/19 07:00 Intake Total 2007.5 ml Output Total 2050 ml Balance -42.5 ml Height & Weight Height: 6'1.00" Weight: 196lbs. oz. 88.536710qo; 23.70 BMI Method:Stated General Appearance: No Apparent Distress HEENT: Normal ENT Inspection, Other (hearing loss) Neck: Supple Respiratory: Lungs Clear, Decreased Breath Sounds Cardiovascular: Regular Rate, Rhythm, Systolic Murmur Capillary Refill: Less Than 3 Seconds Gastrointestinal: normal bowel sounds, non tender, soft Extremity: Non Tender, No Calf Tenderness, No Pedal Edema Neurologic/Psychiatric: Alert Skin: Warm/Dry, Other Lymphatic: No Adenopathy Results Lab Laboratory Tests 04/24/19 04:00 11/21/19 03:02 Assessment/Plan Assessment/Plan Pneumonia -[place] cultures negative as of 04/24 -cxr on 04/24 showed increasing infiltrates and increasing basilar effusions -Continue Vanco/Zosyn -cxr on 04/25: Bilateral airspace disease has shown slight interval improvement. Findings remain compatible with pulmonary edema possibly secondary to congestive heart failure. 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 Denies SOB. Exam Exam General Appearance: No Apparent Distress HEENT: Normal ENT Inspection Neck: Supple Respiratory: Lungs Clear, Decreased Breath Sounds Cardiovascular: Regular Rate, Rhythm, Systolic Murmur Gastrointestinal: normal bowel sounds, non tender, soft Extremity: Non Tender, No Calf Tenderness, No Pedal Edema Neurologic/Psychiatric: Alert Skin: Warm/Dry Lymphatic: No Adenopathy Assessment/Plan Assessment/Plan Pneumonia -[place] cultures negative as of 04/24 -cxr on 04/25 showed increasing infiltrates and increasing basilar effusions - Continue Lasix and D/C IVF -Continue Vanco/Zosyn -cxr on 04/25: Bilateral airspace disease has shown slight interval improvement. Findings remain compatible with pulmonary edema possibly secondary to congestive heart failure. 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
--- NOTE | 2019-04-25 11:10 | Physical Therapy Daily Note ---
PT Daily Note-Current Subjective Agrees to PT. "What do you want me to do?" "I don't walk." Agreed to transfer to the chair. Mental Status Patient Orientation: Person, Confused (slightly ), Place, Time, Situation Transfers SCALE: Activities may be completed with or without assistive devices. 4-Apyrwylahk-sozdjlo completes the activity by him/herself with no assistance from a helper. 5-Set-up or Clean-up Assistance-helper sets up or cleans up; patient completes activity. Trail assists only prior to or following the activity. 4-Supervision or Touching Assistance-helper provides verbal cues and/or touching/steadying and/or contact guard assistance as patient completes activity. Assistance may be provided throughout the activity or intermittently. 3-Partial/Moderate Assistance-helper does LESS THAN HALF the effort. Trail lifts, holds or supports trunk or limbs, but provides less than half the effort. 2-Substantial/Maximal Assistance-helper does MORE THAN HALF the effort. Trail lifts or holds trunk or limbs and provides more than half the effort. 7-Qzrxwaahx-xivfqt does ALL the effort. Patient does none of the effort to complete the activity. Or, the assistance of 2 or more helpers is required for the patient to complete the activity. If activity was not attempted, code reason: 7-Patient Refused. 9-Not Applicable-not attempted and the patient did not perform the activity before the current illness, exacerbation or injury. 10-Not Attempted due to Environmental Limitations-(lack of equipment, weather restraints, etc.). 88-Not Attempted due to Medical Conditions or Safety Concerns. Roll Left & Right (QC): 6 Sit to Lying (QC): 6 Lying to Sitting/Side of Bed(Q: 6 Sit to Stand (QC): 4 (CGA for safety) Chair/Vmx-mv-Cojqa Xfer(QC): 4 (CGA with FWW hopped a few steps to turn to the chair. ) Right BKA noted; pt applied a long leg splint before getting up. Pt in wc post treatment with needs met. Weight Bearing Right Lower Extremity: Right Weight Bearing/Tolerated Left Lower Extremity: Left Weight Bearing/Tolerated Assessment Current Status: Good Progress Pt tolerated treatment well and no LOB or safety concerns noted with transfer. PT Fci Goals Fci Goals PT Fci Goals Time Frame: May 01, 2019 Roll Left & Right (QC): 6 Sit to Lying (QC): 6 Lying-Sitting on Side/Bed(QC): 6 Sit to Stand (QC): 6 Chair/Ywj-ms-Yppot Xfer(QC): 6 Toilet Transfer (QC): 6 Car Transfer (QC): 9 Does the Patient Walk: Yes Walk 10 feet (QC): 4 (SBA) Walk 50ft with 2 Turns (QC): 9 Walk 150 ft (QC): 9 Walking 10ft on Uneven Surface: 9 1 Step (curb) (QC): 3 (Og) 4 Steps (QC): 9 12 Steps (QC): 9 Picking up an Object (QC): 9 Does the Pt use WC or Scooter?: No Wheel 50 feet with 2 turns (QC: 9 Type: Manual Wheel 150 feet: 9 Type: Manual PT Plan Problem List Problem List: Activity Tolerance, Functional Strength, Safety Treatment/Plan Treatment Plan: Continue Plan of Care Treatment Plan: Bed Mobility, Education, Functional Activity Harjinder, Functional Strength, Group Therapy, Gait, Safety, Therapeutic Exercise, Transfers Treatment Duration: May 01, 2019 Frequency: 6 times per week Estimated Hrs Per Day: .25 hour per day Patient and/or Family Agrees t: Yes Safety Risks/Education Patient Education: Safety Issues Teaching Recipient: Patient Teaching Methods: Discussion Response to Teaching: Verbalize Understanding Time/GCodes Time In: 900 Time Out: 916 Total Billed Treatment Time: 16 Total Billed Treatment visit FA 16 ATIYA ANAYA PT Apr 25, 2019 11:10 POS
[2019-04-25 11:46] VITALS: BP 172/73
[2019-04-25] MEDS ORDERED: TROUGH ORDER-PHARMACY XX NR (12:00)
--- NOTE | 2019-04-25 12:17 | Progress Note ---
Subjective Date Seen by a Provider: Apr 25, 2019 Time Seen by a Provider: 12:14 Subjective/Events-last exam Fwup weakness, falls, Type II CO, SVT, Hx of A. Fib, anemia, PAD with recent right BKA, leukocytosis/SIRS. Denies shortness of air and cough is better. Objective Exam Vital Signs Date Time Temp Pulse Resp B/P (MAP) Pulse Ox O2 Delivery O2 Flow Rate FiO2 04/25/19 11:46 37.3 50 20 172/73 (106) 91 High Flow N/C 2.00 04/25/19 07:56 36.8 60 20 151/67 (95) 93 High Flow N/C 3.00 04/25/19 03:20 36.9 72 20 170/72 (104) 93 Nasal Cannula 2.50 04/24/19 23:46 36.9 58 20 173/65 (101) 90 Nasal Cannula 2.50 04/24/19 21:35 Nasal Cannula 2.00 04/24/19 20:10 Nasal Cannula 2.50 04/24/19 20:00 37.0 62 18 176/79 (111) 96 Nasal Cannula 2.50 04/24/19 16:00 37.0 54 18 171/75 (107) 94 Nasal Cannula 3.00 I & O 04/25/19 07:00 Intake Total 2007.5 ml Output Total 2050 ml Balance -42.5 ml Capillary Refill : Less Than 3 Seconds General Appearance: No Apparent Distress Neck: Supple Respiratory: Lungs Clear Cardiovascular: Regular Rate, Rhythm, Systolic Murmur Gastrointestinal: normal bowel sounds, non tender, soft Extremity: Non Tender, No Calf Tenderness Neurologic/Psychiatric: Alert, Oriented x3 Skin: Other (right BKA with dressing in place) Results Lab Laboratory Tests 04/25/19 03:02: White Blood Count 15.5H, Red Blood Count 2.97L, Hemoglobin 8.6L, Hematocrit 28L, Mean Corpuscular Volume 93, Mean Corpuscular Hemoglobin 29, Mean Corpuscular Hemoglobin Concent 31L, Red Cell Distribution Width 17.5H, Platelet Count 1324*H , Mean Platelet Volume 11.8H, Neutrophils (%) (Auto) 79H, Lymphocytes (%) (Auto) 7L, Monocytes (%) (Auto) 11, Eosinophils (%) (Auto) 2, Basophils (%) (Auto) 1, Neutrophils # (Auto) 12.2H, Lymphocytes # (Auto) 1.1, Monocytes # (Auto) 1.8H, Eosinophils # (Auto) 0.3, Basophils # (Auto) 0.1, Sodium Level 143, Potassium Level 3.3L, Chloride Level 107, Carbon Dioxide Level 22, Anion Gap 14, Blood Urea Nitrogen 14, Creatinine 1.08, Estimat Glomerular Filtration Rate > 60, BUN/Creatinine Ratio 13, Glucose Level 78, Calcium Level 8.6, Phosphorus Level 4.0, Magnesium Level 1.9 04/25/19 12:05: Microbiology 04/21/19 Blood Culture - Preliminary, Resulted No growth 04/21/19 MRSA Screen - Final, Complete MRSA not isolated 04/21/19 Urine Culture - Final, Complete NO GROWTH Assessment/Plan Assessment/Plan Assess & Plan/Chief Complaint 1. Weakness/Falls--PT/OT started, SNF for DC, may need SWING bed for continued IV abx--will reassess CXR/lab tomorrow 2. PAD with recent right BKA--has fwup with surgeon next week to assess wound 3. Type II CO--medical management 4. SVT on admit with history of A. Fib--in NSR 5. Pulmonary Edema--on po lasix with potassium 6. Anemia with ringed sideroblasts and thrombocytosis--monitor H/H, oncology consulted 7. COPD--on oxygen, SVNs 8. Leukocytosis/Pneumonia/SIRS--continue zosyn/vancomycin Clinical Quality Measures Admission Status Admission Dx 1. Type II Myocardial Infarction--medical management per cardiology 2. Bilateral Pulmonary Edema--Diurese with lasix 3. Leukocytosis with likely pneumonia/SIRS--continue IV zosyn/Vanc and monitor WBC count/CXR/await cultures 4. History of Atrial Fibrillation with SVT on Admit--rate improved 5. Severe PVD with recent right BKA--will need assessment due to falls for either Rehab or back to [place] 6. 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 Pyoderma Gangrenosum--left leg lesion wrapped DVT/VTE Risk/Contraindication: Risk Factor Score Per Nursin RFS Level Per Nursing on Admit: 4+=Very High KEVIN BURCH DO Apr 25, 2019 12:17 POS
--- NOTE | 2019-04-25 13:02 | Occupational Ther Daily Note ---
OT Current Status-Daily Note Subjective Pt alert, lying in bed. Pt stated "I just got in bed, do I have to get up again?" Pt completed UE exercises in bed. No c/o pain at this time. Mental Status/Objective Patient Orientation: Person, Place, Time, Situation ADL-Treatment Therapy Code Descriptions/Definitions Functional [place] Measure: 0=Not Assessed/NA 4=Minimal Assistance 1=Total Assistance 5=Supervision or Setup 2=Maximal Assistance 6=Modified [place] 3=Moderate Assistance 7=Complete IndependenceSCALE: Activities may be completed with or without assistive devices. 1-Wktnkxfjkd-oyymqcw completes the activity by him/herself with no assistance from a helper. 5-Set-up or Clean-up Assistance-helper sets up or cleans up; patient completes activity. Cammal assists only prior to or following the activity. 4-Supervision or Touching Assistance-helper provides verbal cues and/or touching/steadying and/or contact guard assistance as patient completes activity. Assistance may be provided throughout the activity or intermittently. 3-Partial/Moderate Assistance-helper does LESS THAN HALF the effort. Cammal lifts, holds or supports trunk or limbs, but provides less than half the effort. 2-Substantial/Maximal Assistance-helper does MORE THAN HALF the effort. Cammal lifts or holds trunk or limbs and provides more than half the effort. 9-Qgxlnfpge-mcjesc does ALL the effort. Patient does none of the effort to complete the activity. Or, the assistance of 2 or more helpers is required for the patient to complete the activity. If activity was not attempted, code reason: 7-Patient Refused. 9-Not Applicable-not attempted and the patient did not perform the activity before the current illness, exacerbation or injury. 10-Not Attempted due to Environmental Limitations-(lack of equipment, weather restraints, etc.). 88-Not Attempted due to Medical Conditions or Safety Concerns. Other Treatment 4 UE exercises completed in all planes with medium resistance theraband. Pt completed 30 reps for each exercise. Skilled instructions required for techniques, modifications and positioning. After therapy, pt lying in bed with call light/phone in reach. All needs met in room. OT Alf Goals Pocket Marker Goals Time Frame: May 07, 2019 Eating (QC): 6 Oral Hygiene (QC): 6 Toileting Hygiene (QC): 6 Shower/Bathe Self (QC): 5 Upper Body Dressing (QC): 5 Lower Body Dressing (QC): 5 On/Off Footwear (QC): 5 Additional Goals: 1-Demonstrate ADL Tasks, 2-Verbalize Understanding, 3-ImproveStrength/Harjinder 1=Demonstrate adherence to instructed precautions during ADL tasks. 2=Patient will verbalize/demonstrate understanding of assistive devices/modifications for ADL. 3=Patient will improve strength/tolerance for activity to enable patient to perf orm ADL's. OT Education/Plan Problem List/Assessment Assessment: Decreased UE Strength Discharge Recommendations Plan/Recommendations: Continue POC Treatment Plan/Plan of Care Patient would benefit from OT for education, treatment and training to promote independence in ADL's, mobility, safety and/or upper extremity function for ADL's. Plan of Care: ADL Retraining, Caregiver Training, Functional Mobility, UE Funct Exercise/Act Treatment Duration: May 07, 2019 Frequency: 5 times per week Estimated Hrs Per Day: .25 hour per day Agreement: Yes Rehab Potential: Good Time/GCodes Start Time: 10:45 Stop Time: 11:00 Total Time Billed (hr/min): 15 Billed Treatment Time 1 visit-EX 1 (15 min) ATIYA ZARATE Apr 25, 2019 13:01 POS
--- NOTE | 2019-04-25 14:17 | NUR ---
Notified Silverio's daughter Janet that he has been accepted to [facility] whenever he is discharged for continued therapies. Updated his primary care nurse as well.
--- NOTE | 2019-04-25 14:49 | NUR ---
"RD ASSESSMENT PMHx: PVD; HTN; UT; afib; leukocytosis; right BKA PT INTERACTION: Pt was awake and pleasant during nutrition assessment. Note pt is hard of hearing. Note family present at bedside. Pt states current appetite is pretty good, but it had been poor prior to admit. Family states appetite is pretty poor. Family states pt follows a low-CHO diet at home. Pt states no issues chewing/swallowing food at this time. Pt states no recent issues with n/v/c/d at this time. Note last BM was 04/24, and pt currently on bowel regimen of miralax PRN. Family states pt has lost some weight, but could not give details as to amount or timeframe. Note recent 3# wt loss x4d, per chart review. Note pt has right BKA, per chart review. ABNORMAL NUTRITION-RELATED LAB VALUES: Est. kcal needs: 8995-8891 kcal | 25-30 kcal/kg Est. Pro needs: 78-94 g Pro | 1.0-1.2 g Pro/kg PES STATEMENT: Inadequate oral intake (NI-2.1) related to loss of appetite as evidenced by pt (family) interview INTERVENTION: Continue with current diet order of Heart Healthy diet. Pt may benefit from nutrition supplementation if PO intake declines. Will continue to follow and reassess as pt needs and status change. MONITOR/EVALUATE: PO Intake; Plan of Care; Hydration Status; Weight Status; Lab Values Marcia Cheema, MS, RD, LD"
[2019-04-25 16:00] VITALS: BP 162/70
--- NOTE | 2019-04-25 17:03 | Progress Note ---
Standard Progress Note Progress Notes/Assess & Plan Date Seen by a Provider: Apr 25, 2019 Time Seen by a Provider: 17:01 Progress/Assessment & Plan 73-year-old male admitted with increasing weakness and palpitations. Found to have SVT with rapid rate, type II SD and fluid overload. Good results with diuresis. Patient has history of MDS since 2016 and initially was on treatment with hydroxyurea and more recently with anagrelide. Anagrelide has been stopped now as this could cause cardiac complications including atrial fibrillation/SVT or SD. 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 He underwent bone marrow evaluation at [facility] beds at [facility] in March 2019. 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 According to NCCN guidelines treatment options include hypomethylating agents like Dacogen or Vidaza and or Lenalidomide. We will plan on starting him on Dacogen on Monday05/06/2019 because of Thanks[place] holidays next week. Platelet count 1.3 million today and increasing rapidly. Unable to use anagrelide because of cardiac problems. Started patient on hydroxyurea 1000 mg twice daily since yesterday to control th e counts. Monitor labwork daily. If the platelet count is continuing to increase and the patient become symptomatic, he may need plateletpheresis in [place]. Will follow patient with you. ESHA MORIN Apr 25, 2019 17:03 POS
[2019-04-25] MEDS: VANCOMYCIN INJECTION 1,000 MG in NS (IVPB) 250 ML IV SCH (17:30)
[2019-04-25 20:00] VITALS: BP 186/81
[2019-04-25] MEDS: meTOprolol TARTRATE 25 MG (LOPRESSOR) TABLET PO SCH (21:13)
[2019-04-26 04:15] VITALS: BP 189/82
[2019-04-26 04:15] LABS: BASOPHILS # (AUTO) 0.1 10^3/uL (0.0-0.1); BASOPHILS % (AUTO) 1 % (0-10); EOSINOPHILS # (AUTO) 0.3 10^3/uL (0.0-0.3); EOSINOPHILS % (AUTO) 3 % (0-10); HEMATOCRIT 26 % (40-54); HEMOGLOBIN 8.4 G/DL (13.3-17.7); LYMPHOCYTES # (AUTO) 1.2 X 10^3 (1.0-4.0); LYMPHOCYTES % (AUTO) 9 % (12-44); MEAN CORPUSCULAR HEMOGLOBIN 30 PG (25-34); MEAN CORPUSCULAR HGB CONC 32 G/DL (32-36); MEAN CORPUSCULAR VOLUME 94 FL (80-99); MEAN PLATELET VOLUME 10.9 FL (7.4-10.4); MONOCYTES # (AUTO) 1.5 X 10^3 (0.0-1.0); MONOCYTES % (AUTO) 11 % (0-12); NEUTROPHILS # (AUTO) 10.3 X 10^3 (1.8-7.8); NEUTROPHILS % (AUTO) 77 % (42-75); RED CELL DISTRIBUTION WIDTH 17.1 % (10.0-14.5); WHITE BLOOD COUNT 13.3 10^3/uL (4.3-11.0)
[2019-04-26 04:18] LABS: PLATELET COUNT 1828 10^3/uL (130-400)
[2019-04-26 04:29] LABS: BUN/CREATININE RATIO 14; CALCIUM 8.7 MG/DL (8.5-10.1); CARBON DIOXIDE 22 MMOL/L (21-32); CHLORIDE 109 MMOL/L (98-107); CREATININE SERUM 0.99 MG/DL (0.60-1.30); GFR ESTIMATED > 60; GLUCOSE 94 MG/DL (70-105); PHOSPHORUS 3.6 MG/DL (2.3-4.7); POTASSIUM 3.8 MMOL/L (3.6-5.0); SODIUM 143 MMOL/L (135-145)
[2019-04-26] MEDS: HYDROXYUREA 500 MG CAP (HYDREA) PO SCH ×2 (04:36→16:16)
[2019-04-26] MEDS: PIPERACILLIN/TAZOBACTAM (BULK) 4.5 GM in NS (IVPB) 100 ML IV SCH ×3 (04:39→20:52)
--- NOTE | 2019-04-26 05:01 | NUR ---
NOTIFIED DR. MORIN OF CRITICAL PLATELET COUNT OF 1823 VIA TELEPHONE. NO NEW ORDERS OBTAINED.
[2019-04-26] MEDS: MAGNESIUM 1 GM/100 ML IVPB 100 ML IV SCH (06:05)
[2019-04-26] MEDS: POTASSIUM CL 10MEQ/50ML IVPB 50 ML IV SCH (06:05)
[2019-04-26] MEDS: KCL 8 MEQ (MICRO K) TABLET PO SCH (06:22)
[2019-04-26] MEDS: KCL 20 MEQ TAB (K-DUR) PO SCH (06:22)
--- NOTE | 2019-04-26 07:00 | Diagnostic Imaging Report ---
INDICATION: Shortness of breath. Portable chest 3:35 AM Heart size and pulmonary vascularity have both increased. There is diffuse interstitial edema in the lungs. There is no appreciable effusion. IMPRESSION: Pulmonary venous hypertension. Shallow respiration on today's film compared to the previous studies. Dictated by: Dictated on workstation # [id number]
[2019-04-26] MEDS: VANCOMYCIN INJECTION 1,000 MG in NS (IVPB) 250 ML IV SCH ×2 (07:50→18:09)
[2019-04-26 08:00] VITALS: BP 159/69
--- NOTE | 2019-04-26 08:34 | Pulmonary Progress Note ---
HEIDI SWEET A MEDICAL STUDENT 04/26/19 0834: Subjective Date Seen by a Provider: Apr 26, 2019 Time Seen by a Provider: 08:29 Subjective/Events-last exam Pt has no complaints at this time. States he is agreeable to breathing treatments if he needs them. States he is cooperating with PT daily. Sepsis Event Evaluation Height, Weight, BMI Height: 6'1.00" Weight: 196lbs. oz. 88.613891rw; 23.70 BMI Method:Stated Exam Exam Vital Signs Date Time Temp Pulse Resp B/P (MAP) Pulse Ox O2 Delivery O2 Flow Rate FiO2 04/26/19 04:15 36.3 48 16 189/82 (117) 94 Nasal Cannula 1.50 04/25/19 21:36 Nasal Cannula 2.50 04/25/19 20:00 37.0 58 20 186/81 (116) 96 Nasal Cannula 1.50 04/25/19 16:00 37.6 50 18 162/70 (100) 96 Nasal Cannula 2.00 04/25/19 11:46 37.3 50 20 172/73 (106) 91 High Flow N/C 2.00 04/25/19 09:00 Nasal Cannula 2.50 I & O 04/26/19 07:00 Intake Total 2040 ml Output Total 1525 ml Balance 515 ml Height & Weight Height: 6'1.00" Weight: 196lbs. oz. 88.255777ke; 23.70 BMI Method:Stated General Appearance: No Apparent Distress, Thin HEENT: PERRL/EOMI Neck: Full Range of Motion, Supple Respiratory: Chest Non Tender, Lungs Clear, Normal Breath Sounds Cardiovascular: Regular Rate, Rhythm Capillary Refill: Less Than 3 Seconds Gastrointestinal: normal bowel sounds, non tender, soft Extremity: Non Tender, No Calf Tenderness Neurologic/Psychiatric: Alert, Oriented x3 Skin: Normal Color, Warm/Dry, Other (right BKA with dressing in place) Lymphatic: No Adenopathy Results Lab Laboratory Tests 04/25/19 03:02 04/26/19 03:50 Assessment/Plan Assessment/Plan Pneumonia -[place] cultures negative as of 04/24 -leukocytosis improving -cxr on 04/26 showed Pulmonary venous hypertension. Shallow respiration on today's film compared to the previous studies. 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 Exam Exam General Appearance: No Apparent Distress HEENT: PERRL/EOMI Neck: Full Range of Motion, Supple Respiratory: Chest Non Tender, Lungs Clear, Normal Breath Sounds Cardiovascular: Regular Rate, Rhythm Gastrointestinal: normal bowel sounds, non tender, soft Extremity: Non Tender, No Calf Tenderness Neurologic/Psychiatric: Alert, Oriented x3 Skin: Normal Color, Warm/Dry Lymphatic: No Adenopathy Assessment/Plan Assessment/Plan Pneumonia -[place] cultures negative as of 04/24 -leukocytosis improving -cxr on 04/26 showed Pulmonary venous hypertension. Shallow respiration on today's film compared to the previous studies. 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
--- NOTE | 2019-04-26 09:00 | NUR ---
DR BYRD NOTIFIED OF LOW HEART RATE OF 51. EKG ORDERED AND SENT TO HIM. HOLD METOPROL AND CARDIZEM.
--- NOTE | 2019-04-26 09:30 | Physical Therapy Daily Note ---
PT Daily Note-Current Subjective Pt reluctantly agreeable to PT session. Pt is verbally belligerent, very set in his ways with performing activities. When asked if he is having pain, pt states "Don't ever ask me that, if I am having pain I will tell you!" Pain Numeric Pain Scale: 0-No Pain Appearance Upon arrival into pt's room, pt supine in bed awake and alert, very [place]. Pt is RBKA, no prosthesis. At end of session, pt in bed with call light, phone, bedside table and urinal within reach. Nursing present getting pt ready for EKG. Mental Status pt would not answer orientation questions Transfers SCALE: Activities may be completed with or without assistive devices. 8-Hamvgjrvet-iifitlc completes the activity by him/herself with no assistance from a helper. 5-Set-up or Clean-up Assistance-helper sets up or cleans up; patient completes activity. [place] assists only prior to or following the activity. 4-Supervision or Touching Assistance-helper provides verbal cues and/or touch ing/steadying and/or contact guard assistance as patient completes activity. Assistance may be provided throughout the activity or intermittently. 3-Partial/Moderate Assistance-helper does LESS THAN HALF the effort. [place] lifts, holds or supports trunk or limbs, but provides less than half the effort. 2-Substantial/Maximal Assistance-helper does MORE THAN HALF the effort. [place] lifts or holds trunk or limbs and provides more than half the effort. 1-Pupusohpi-ixibjg does ALL the effort. Patient does none of the effort to complete the activity. Or, the assistance of 2 or more helpers is required for the patient to complete the activity. If activity was not attempted, code reason: 7-Patient Refused. 9-Not Applicable-not attempted and the patient did not perform the activity before the current illness, exacerbation or injury. 10-Not Attempted due to Environmental Limitations-(lack of equipment, weather restraints, etc.). 88-Not Attempted due to Medical Conditions or Safety Concerns. Roll Left & Right (QC): 6 Sit to Lying (QC): 6 Lying to Sitting/Side of Bed(Q: 6 Sit to Stand (QC): 4 Chair/Dgk-cq-Omgao Xfer(QC): 4 performed sliding transfer bed to w/c. sit to from stand transfers w/c to walker x3, walker to bed Weight Bearing Right Lower Extremity: Right Weight Bearing/Tolerated Left Lower Extremity: Left Weight Bearing/Tolerated Gait Training Does the Patient Walk?: Yes Distance: 10, 65 x2 Walk 10 feet (QC): 4 Walk 50 ft with 2 Turns(QC): 4 Gait Persons Needed: 1 (used another staff person to assist with following with w/c and IV pole) Gait Assistive Device: FWW RBKA, no prosthesis, hops, slow, fwd trunk flexion Exercises Seated Therapy Exercises: Ankle pumps, Sit to stand, Long arc quads, Chair press-ups, Hip flexion, Hip abd/add Seated Reps: 20 Treatments bed mobility, transfers, gait, strength, education Assessment Current Status: Good Progress Pt is verbally belligerent, very set in his ways with performing activities. Very animated with hands while talking, occasionally pushing his hand toward this DIRECTOR OF AUTOMATION's face when talking PT Residential Goals Residential Goals PT Residential Goals Time Frame: May 01, 2019 Roll Left & Right (QC): 6 Sit to Lying (QC): 6 Lying-Sitting on Side/Bed(QC): 6 Sit to Stand (QC): 6 Chair/Wor-uy-Ttqxa Xfer(QC): 6 Toilet Transfer (QC): 6 Car Transfer (QC): 9 Does the Patient Walk: Yes Walk 10 feet (QC): 4 (SBA) Walk 50ft with 2 Turns (QC): 9 Walk 150 ft (QC): 9 Walking 10ft on Uneven Surface: 9 1 Step (curb) (QC): 3 (Og) 4 Steps (QC): 9 12 Steps (QC): 9 Picking up an Object (QC): 9 Does the Pt use WC or Scooter?: No Wheel 50 feet with 2 turns (QC: 9 Type: Manual Wheel 150 feet: 9 Type: Manual PT Plan Treatment/Plan Treatment Plan: Continue Plan of Care Treatment Plan: Bed Mobility, Education, Functional Activity Harjinder, Functional Strength, Group Therapy, Gait, Safety, Therapeutic Exercise, Transfers Treatment Duration: May 01, 2019 Frequency: 6 times per week Estimated Hrs Per Day: .25 hour per day Patient and/or Family Agrees t: Yes Safety Risks/Education Patient Education: Gait Training, Transfer Techniques, Safety Issues Teaching Recipient: Patient Teaching Methods: Discussion Response to Teaching: Verbalize Understanding Time/GCodes Time In: 839 Time Out: 909 Total Billed Treatment Time: 30 Total Billed Treatment 1 visit, EX x10 min, GT x20 min ABE CAUSEY DIRECTOR OF AUTOMATION Apr 26, 2019 09:30 POS
[2019-04-26] MEDS: meTOprolol TARTRATE 50 MG (LOPRESSOR) TAB PO SCH ×2 (09:36→20:52)
[2019-04-26] MEDS: CLOPIDOGREL 75 MG (PLAVIX) TABLET PO SCH (09:36)
[2019-04-26] MEDS: DILTIAZEM 240 MG (CARDIZEM CD) CAP PO SCH (09:36)
[2019-04-26] MEDS: ASPIRIN 81 MG CHEW (CHILDREN'S ASA) PO SCH (09:36)
[2019-04-26] MEDS: FUROSEMIDE 40 MG (LASIX) TAB PO SCH (09:36)
[2019-04-26] MEDS: lisINopril 5 MG (PRINIVIL) TABLET PO SCH (09:36)
--- NOTE | 2019-04-26 10:51 | Progress Note ---
Standard Progress Note Progress Notes/Assess & Plan Date Seen by a Provider: Apr 26, 2019 Time Seen by a Provider: 10:35 Progress/Assessment & Plan 73-year-old male admitted with increasing weakness and palpitations. Found to have SVT with rapid rate, type II VA and fluid overload. Good results with diuresis. Patient has history of MDS since 2016 and initially was on treatment with hydroxyurea and more recently with anagrelide. Anagrelide has been stopped now as this could cause cardiac complications including atrial fibrillation/SVT or VA. 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 He underwent bone marrow evaluation at [facility] in March 2019. 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 According to NCCN guidelines treatment options include hypomethylating agents like Dacogen or Vidaza and or Lenalidomide. Platelet count over 1.8 million today. Patient denied SOB, chestpain or neurological symptoms but is fatigued. Discussed case with Dr. Zaire Milan at [facility] who had seen patient earlier and done recent bone marrow. He agreed that patient will need platelet pheresis. He may also need to start hypomethylating agents started sooner. Dr. Thakkar is the Naturopathic Oncology Provider migration agent for [facility] this weekend. Called patients daughter but had to leave message. Also discussed with Dr. Gallegos who will make arrangement for transfer. ESHA MORIN Apr 26, 2019 10:51 POS
[2019-04-26] MEDS ORDERED: ASPI-999 PO (11:14)
[2019-04-26] MEDS ORDERED: METO50TA15 PO (11:14)
[2019-04-26] MEDS ORDERED: POTA20TA8 PO (11:14)
[2019-04-26] MEDS ORDERED: FURO40TA4 PO (11:14)
[2019-04-26] MEDS ORDERED: LISI-556 PO (11:14)
[2019-04-26] MEDS ORDERED: CLOP75TA28 PO (11:14)
--- NOTE | 2019-04-26 11:34 | Discharge Summary ---
Discharge Summary Hospital Course Was the Problem List Reviewed?: Yes Hospital Course Date of Admission: Apr 22, 2019 at 12:21 Admission Diagnosis : Family Physician/Provider: Leeann Gallegos DO Date of Discharge: 04/26/19 Discharge Diagnosis: [ ] Hospital Course: This is a 73 year old male initially admitted to the ICU after presenting with shortness of air and chest pain. He was found to be in SVT on admit with leukocytosis and elevated troponin. He was admitted to the ICU with pulmona ry/critical care and cardiology consult. He was starte on Vancomycin and Zosyn with pancultures done. His Type II NE was treated with medical management and he was started on plavix and aspirin. He did have pulmonary edema which did respond to IV lasix initially and then he was able to be switched to po lasix. The second hospital day he was transferred to cardiac stepdown and PT and OT were started. He was transferred to the medical floor on hospital day #3. There were some patient compliance issues in that the patient was refusing OT and PT as well as his nebulizer treatments. His WBC count was slowly coming down with improving infiltrates and pulmonary edema on his CXR as well as improvement clinically in his breath sounds and no further shortness of air. However, the patients platelet count continued to elevate despite hydroxyurea. His platelet count reached a high of 1.8 million on the day of discharge. Hem/Onc discussed his case with Dr. Milan who had taken care of the patient at [facility] and it was decided he would need plateletphoresis so transfer was arranged via ambulance. The patient is also in need of surgery evaluation of his right BKA and the surgeon who performed this is at [facility] in . Clinically the patient's pneumonia with SIRS and pulmonary edema are improving and he has been more agreeable with working with PT. Labs and Pending Lab Test: Laboratory Tests 04/25/19 12:05: Vancomycin Level Trough 23.0H 04/26/19 03:50: White Blood Count 13.3H, Red Blood Count 2.81L, Hemoglobin 8.4L, Hematocrit 26L, Mean Corpuscular Volume 94, Mean Corpuscular Hemoglobin 30, Mean Corpuscular Hemoglobin Concent 32, Red Cell Distribution Width 17.1H, Platelet Count 1828*H, Mean Platelet Volume 10.9H, Neutrophils (%) (Auto) 77H, Lymphocytes (%) (Auto) 9L, Monocytes (%) (Auto) 11, Eosinophils (%) (Auto) 3, Basophils (%) (Auto) 1, Neutrophils # (Auto) 10.3H, Lymphocytes # (Auto) 1.2, Monocytes # (Auto) 1.5H, Eosinophils # (Auto) 0.3, Basophils # (Auto) 0.1, Sodium Level 143, Potassium Level 3.8, Chloride Level 109H, Carbon Dioxide Level 22, Anion Gap 12, Blood Urea Nitrogen 14, Creatinine 0.99, Estimat Glomerular Filtration Rate > 60, BUN/Creatinine Ratio 14, Glucose Level 94, Calcium Level 8.7, Phosphorus Level 3.6, Magnesium Level 2.0 Microbiology 04/21/19 Blood Culture - Preliminary, Resulted No growth 04/21/19 MRSA Screen - Final, Complete MRSA not isolated 04/21/19 Urine Culture - Final, Complete NO GROWTH Home Meds Active Klor-Con M20 (Potassium Chloride) 20 Meq Tab.er.prt 40 Meq PO DAILY@0600 Furosemide 40 Mg Tablet 40 Mg PO DAILY Aspirin 81 Mg Tab.chew 81 Mg PO DAILY Lisinopril 5 Mg Tablet 5 Mg PO DAILY Metoprolol Tartrate 50 Mg Tablet 50 Mg PO BID Clopidogrel (Clopidogrel Bisulfate) 75 Mg Tablet 75 Mg PO DAILY Reported Percocet 10-325 mg Tablet (Oxycodone HCl/Acetaminophen) 1 Each Tablet 1 Tab PO Q4H PRN Gabapentin 300 Mg Capsule 600 Mg PO TID TAKES 2 (300MG) CAPSULES Prednisone 10 Mg Tab 10 Mg PO DAILY Bisacodyl 5 Mg Tablet.dr 5 Mg PO DAILY PRN Agrylin (Anagrelide HCl) 0.5 Mg Cap 1 Mg PO DAILY TAKES 2 (0.5MG) CAPSULES Anagrelide HCl 0.5 Mg Capsule 1.5 Mg PO HS TAKES 3 (0.5MG) CAPSULES Finasteride 5 Mg Tablet 5 Mg PO DAILY Diltiazem 24Hr ER (Diltiazem HCl) 240 Mg Cap.er.24h 240 Mg PO DAILY Flomax (Tamsulosin HCl) 0.4 Mg Cap 0.4 Mg PO DAILY Metoprolol Tartrate 25 Mg Tablet 25 Mg PO BID HOLD IF HEART RATE BELOW 60 Tylenol (Acetaminophen) 325 Mg Tablet 325-650 Mg PO Q4H PRN Iron (Ferrous Sulfate) 325 Mg Tablet 325 Mg PO DAILY Folic Acid 0.4 Mg Tablet 0.4 Mg PO DAILY Assessment/Pt Instructions 1. Weakness/Falls--PT/OT started 2. PAD with recent right BKA--transferring back to [facility] for hem/onc and will have surgery assess wound 3. Type II NE--medical management 4. SVT on admit with history of A. Fib--in NSR 5. Pulmonary Edema--on po lasix with potassium, improving 6. Anemia with ringed sideroblasts and thrombocytosis--platelets up to 1.8 million so needs plateletphoresis so being trasferred to hem onc at [facility] 7. COPD--on oxygen, SVNs 8. Leukocytosis/Pneumonia/SIRS--continue zosyn/vancomycin, improving 9. Type II NE--treating medically Discharge Planning: >30 minutes discharge planning Discharge Instructions Discharge Diet: No Restrictions Activity as Tolerated: No (with assist) Discharge Physical Examination Vital Signs Vital Signs Date Time Temp Pulse Resp B/P (MAP) Pulse Ox O2 Delivery O2 Flow Rate FiO2 04/26/19 09:00 Nasal Cannula 2.50 04/26/19 04:15 36.3 48 16 189/82 (117) 94 04/22/19 14:15 28 General Appearance: No Apparent Distress HEENT: Normal ENT Inspection Respiratory: Lungs Clear Cardiovascular: Regular Rate, Rhythm, Systolic Murmur Gastrointestinal: Normal Bowel Sounds, Non Tender, Soft Extremity: Non Tender, No Calf Tenderness, No Pedal Edema Skin: Other (right BKA with dressing in place) Neurologic/Psychiatric: Alert, Oriented x3 Allergies: Coded Allergies: Tetanus Vaccines and Toxoid (Verified Allergy, Unknown, 11/17/18) Discharge Summary Date of Admission Apr 22, 2019 at 12:21 Date of Discharge Clinical Quality Measures DVT/VTE Risk/Contraindication: Risk Factor Score Per Nursin RFS Level Per Nursing on Admit: 4+=Very High LEEANN GALLEGOS DO Apr 26, 2019 11:23 POS
[2019-04-26 12:00] VITALS: BP 155/68
--- NOTE | 2019-04-26 12:00 | Cardiology Progress Note ---
Cardiology SOAP Progress Note Subjective: No cardiac complaints. Objective: I&O/Vital Signs 04/26/19 04/26/19 04/26/19 04/26/19 04:15 08:00 09:00 12:00 Temp 36.3 37.1 37.0 Pulse 48 51 54 Resp 16 20 20 B/P (MAP) 189/82 (117) 159/69 (99) 155/68 (97) Pulse Ox 94 96 93 O2 Delivery Nasal Cannula High Flow N/C Nasal Cannula Room Air O2 Flow Rate 1.50 1.50 2.50 04/26/19 00:00 Intake Total 1400 ml Output Total 1025 ml Balance 375 ml Weight (Pounds): 196 Weight (Calculated Kilograms): 88.970223 Constitutional: AAO x 3 Respiratory: chest is bilaterally symmetric, lungs clear to auscultation Cardiovascular: regular rate-rhythm, S1 and S2 Gastrointestional: soft, audible bowel sounds Extremities: normal range of motion, non-tender, normal inspection, no lower extremity edema bilateral Neurologic/Psychiatric: no motor/sensory deficits, alert, normal mood/affect, oriented x 3 Skin: normal color Results/Procedures: Labs Laboratory Tests 04/26/19 03:50: White Blood Count 13.3H, Red Blood Count 2.81L, Hemoglobin 8.4L, Hematocrit 26L, Mean Corpuscular Volume 94, Mean Corpuscular Hemoglobin 30, Mean Corpuscular Hemoglobin Concent 32, Red Cell Distribution Width 17.1H, Platelet Count 1828*H, Mean Platelet Volume 10.9H, Neutrophils (%) (Auto) 77H, Lymphocytes (%) (Auto) 9L, Monocytes (%) (Auto) 11, Eosinophils (%) (Auto) 3, Basophils (%) (Auto) 1, Neutrophils # (Auto) 10.3H, Lymphocytes # (Auto) 1.2, Monocytes # (Auto) 1.5H, Eosinophils # (Auto) 0.3, Basophils # (Auto) 0.1, Sodium Level 143, Potassium Level 3.8, Chloride Level 109H, Carbon Dioxide Level 22, Anion Gap 12, Blood Urea Nitrogen 14, Creatinine 0.99, Estimat Glomerular Filtration Rate > 60, BUN/Creatinine Ratio 14, Glucose Level 94, Calcium Level 8.7, Phosphorus Level 3.6, Magnesium Level 2.0 Microbiology 04/21/19 Blood Culture - Preliminary, Resulted No growth 04/21/19 MRSA Screen - Final, Complete MRSA not isolated 04/21/19 Urine Culture - Final, Complete NO GROWTH A/P: Assessment/Dx: Type II myocardial infarction Chest pain Palpitation Peripheral arterial disease Hypertension Plan: Assessment/Plan Type II myocardial infarction, slight elevation in troponin probably secondary to tachycardia, underlying coronary artery disease cannot be excluded. Denied any chest pain, clinically stable. Continue to monitor Chest pain, occurred during his tachycardia episode, currently not having active chest pain, EKG did not show acute changes, planning to do Lexiscan stress test as an outpatient Peripheral arterial disease status post right BKA, had nonhealing ulcer and failed multiple interventions in the past, still having ulcer at the stump site,continue to monitor. Palpitation, history of paroxysmal atrial fibrillation, on admission he had supraventricular tachycardia, probably reentry tachycardia, currently in sinus rhythm. Continue to monitor Thrombocytosis, MDS, starting hydroxyurea, add IVF and monitor, managed by Dr Hannah Leukocytosis, maintained on prednisone, septic workup initiated, started on antibiotics. Managed by primary care physician Tobaccoism, educated on smoking cessation COPD, could not tolerate bronchodilator. Consult Dr. Wolff Hypertension, poor control, lisinopril added yesterday, continue to monitor Hyperlipidemia, monitor lipids Family history of heart disease Thank you for your consultation. Please call me if you have any questions. Bandar Costello MD, FACP, FACC, FSCAI, FHRS, CCDS Interventional Cardiology Cardiac Electrophysiology Vascular Medicine and Endovascular Interventions Ariane COSTELLO MD Apr 26, 2019 12:00 pm POS
--- NOTE | 2019-04-26 12:48 | NUR ---
Notified PC&R staff that Silverio is going to be transferred to [facility] et will need a new referral sent to them once he is ready for fdc home placement. Family is aware of the change in care plan d/t in the room when Dr. Gallegos rounded et visited about the need. No further interventions noted at this time.
--- NOTE | 2019-04-26 13:57 | Occupational Ther Daily Note ---
OT Current Status-Daily Note Subjective Pt alert, lying in bed. Pt agrees to therapy, but states that he is history and isn't really here. Pt to discharge today. Mental Status/Objective Patient Orientation: Person, Place, Time, Situation ADL-Treatment Therapy Code Descriptions/Definitions Functional [place] Measure: 0=Not Assessed/NA 4=Minimal Assistance 1=Total Assistance 5=Supervision or Setup 2=Maximal Assistance 6=Modified [place] 3=Moderate Assistance 7=Complete IndependenceSCALE: Activities may be completed with or without assistive devices. 1-Wohzashlqw-mmcdupr completes the activity by him/herself with no assistance from a helper. 5-Set-up or Clean-up Assistance-helper sets up or cleans up; patient completes activity. [place] assists only prior to or following the activity. 4-Supervision or Touching Assistance-helper provides verbal cues and/or touching/steadying and/or contact guard assistance as patient completes activity. Assistance may be provided throughout the activity or intermittently. 3-Partial/Moderate Assistance-helper does LESS THAN HALF the effort. [place] lifts, holds or supports trunk or limbs, but provides less than half the effort. 2-Substantial/Maximal Assistance-helper does MORE THAN HALF the effort. [place] lifts or holds trunk or limbs and provides more than half the effort. 5-Jugxpodxw-narrak does ALL the effort. Patient does none of the effort to complete the activity. Or, the assistance of 2 or more helpers is required for the patient to complete the activity. If activity was not attempted, code reason: 7-Patient Refused. 9-Not Applicable-not attempted and the patient did not perform the activity before the current illness, exacerbation or injury. 10-Not Attempted due to Environmental Limitations-(lack of equipment, weather restraints, etc.). 88-Not Attempted due to Medical Conditions or Safety Concerns. Other Treatment Pt demonstrated understanding of HEP and completed 1 set 5 reps of 6 exercises. Pt required encouragement to complete correctly by NAVARRO and family member. After session, pt lying in bed with call light/phone in reach. All needs met in room. OT Banquet Captain Goals Banquet Captain Goals Time Frame: May 07, 2019 Eating (QC): 6 Oral Hygiene (QC): 6 Toileting Hygiene (QC): 6 Shower/Bathe Self (QC): 5 Upper Body Dressing (QC): 5 Lower Body Dressing (QC): 5 On/Off Footwear (QC): 5 Additional Goals: 1-Demonstrate ADL Tasks, 2-Verbalize Understanding, 3- ImproveStrength/Harjinder 1=Demonstrate adherence to instructed precautions during ADL tasks. 2=Patient will verbalize/demonstrate understanding of assistive devices/modifications for ADL. 3=Patient will improve strength/tolerance for activity to enable patient to perform ADL's. OT Education/Plan Problem List/Assessment Assessment: Decreased UE Strength Discharge Recommendations Plan/Recommendations: Continue POC Treatment Plan/Plan of Care Patient would benefit from OT for education, treatment and training to promote independence in ADL's, mobility, safety and/or upper extremity function for ADL's. Plan of Care: ADL Retraining, Caregiver Training, Functional Mobility, UE Funct Exercise/Act Treatment Duration: May 07, 2019 Frequency: 5 times per week Estimated Hrs Per Day: .25 hour per day Agreement: Yes Rehab Potential: Good Time/GCodes Start Time: 13:22 Stop Time: 13:32 Total Time Billed (hr/min): 10 Billed Treatment Time 1 visit-EX 1 (10 min) ATIYA ZARATE Apr 26, 2019 13:57 POS
[2019-04-26 15:59] VITALS: BP 175/77
[2019-04-26] MEDS ORDERED: TROUGH ORDER-PHARMACY XX NR (17:00)
[2019-04-26 20:35] VITALS: BP 190/84
[2019-04-26] MEDS: meTOprolol TARTRATE 25 MG (LOPRESSOR) TABLET PO SCH (20:52)
[2019-04-26] MEDS ORDERED: VANCOMYCIN 750 MG/NS 250 ML IVPB IV SCH ×2 (21:00)
--- NOTE | 2019-04-26 21:25 | NUR ---
TRANSFER/DISCHARGE TO [facility] ROOM [address]. SPOKE WITH AZUL [phone] [facility]. GAVE PATIENT REPORT TO TRISHA REDDY AT [facility] WHO WILL ASSUME CARE OF PATIENT. EMS ARRIVED TO TRANSPORT PATIENT. DISCHARGE PAPERWORK AND ALL BELONGINGS WITH PATIENT/SPOUSE. PATIENT LEFT IN STABLE CONDITION ON TRANSPORT [facility]. AT THIS TIME LEFT UPPER ARM IV IN PLACE WITH ZOSYN 4.5G INFUSING AT 30ML/HR. UPDATED REPORT GIVEN TO MAUREEN. NO FURTHER ORDERS AT THIS TIME.
[2019-04-27] MEDS ORDERED: TROUGH ORDER-PHARMACY XX NR (20:00)
--- NOTE | 2019-04-29 10:33 | Physician Query Clarification ---
PQ-CHF Specificity Admission Date: Apr 22, 2019 at 12:21 Discharge Date: Apr 26, 2019 at 21:29 The medical record reflects the following clinical scenario: History/Risk Factors: HTN, atrial fibrillation Clinical Findings: BNP 570, Echol 04/22 ER 55-65% Treatment: IV lasix Question: Can you further specify the acuity &/or type of CHF per the clinical indicators above? Please document a response in the Progress Notes or Discharge Summary. 1. Acuity: Acute, Chronic or Acute on Chronic 2. Type: Systolic, Diastolic or Systolic & Diastolic 3. Unspecified: CHF cannot be further specified regarding type or acuity 4. Other, with explanation of clinical findings 5. Clinically undetermined, no explanation for clinical findings PHYSICIAN RESPONSE Acuity: Acute Type: Clinically undetermined Other, clinical findings Pulmonary edema Please remember a lack of response to the above will prompt a phone page by CDI/Coding staff. In responding to this query, please exercise your independent professional judgment. The purpose of this communication is to more accurately reflect the complexity of your patients condition. The fact that a question is asked does not imply that any particular answer is desired or expected. Thank you for your timely response to this clarification. Requestors name: Kaden THIS PHYSICIAN QUERY FORM IS A PERMANENT PART OF THE MEDICAL RECORD ANNETTE MATTHEWS Apr 29, 2019 10:33 KEVIN OMER DO Apr 30, 2019 08:09 POS
== END 2019-04-26 21:29 | disposition short-term general hospital (02) | DRG 280 ==
LOC: EDUNIT# 09:46 → ER 09:47 → ICU 12:10 → UNDOADMOB 12:10 → ICU 12:11 → EDLOC 13:00 → ICU 04-22 05:45 → CSD 04-22 09:30 → INTOOBSV 04-22 12:21 → OBSVTOIN 04-22 12:21 → 4TH 04-23 15:15 → CSD 04-23 15:15 → UNDODISIN 04-26 21:29
PROVIDERS: ADMIT Internal Medicine; ATTEND Internal Medicine
DX: I47.1 Supraventricular tachycardia (principal); I21.A1 Myocardial infarction type 2; J18.9 Pneumonia, unspecified organism; J81.0 Acute pulmonary edema; J44.0 Chronic obstructive pulmonary disease with (acute) lower respiratory infection; L88 Pyoderma gangrenosum; L97.421 Non-pressure chronic ulcer of left heel and midfoot limited to breakdown of skin; I11.0 Hypertensive heart disease with heart failure; I50.9 Heart failure, unspecified; I73.9 Peripheral vascular disease, unspecified; D46.1 Refractory anemia with ring sideroblasts; D47.3 Essential (hemorrhagic) thrombocythemia; R07.9 Chest pain, unspecified; J32.9 Chronic sinusitis, unspecified; E78.5 Hyperlipidemia, unspecified; H91.93 Unspecified hearing loss, bilateral; Z89.511 Acquired absence of right leg below knee; Z87.891 Personal history of nicotine dependence; Z91.81 History of falling; Z97.4 Presence of external hearing-aid; Z82.49 Family history of ischemic heart disease and other diseases of the circulatory system
CPT/HCPCS: 36415; 70450; 71045; 80048; 80053; 80061; 80202; 81000; 82962; 83605; 83735; 83880; 84100; 84145; 84484; 85007; 85025; 85027; 85610; 85730; 86850; 86900; 86901; 86920; 87040; 87081; 87088; 93005; 93306; 94640; 94664; 94760; 96361; 96374; 96375; G0378

== ENCOUNTER 2019-05-24 09:09 | Outpatient (RCR) | payer MEDICARE, OTHER ==
[2019-05-06 14:33] LABS: BASOPHILS # (AUTO) 0.1 10^3/uL (0.0-0.1); BASOPHILS % (AUTO) 2 % (0-10); EOSINOPHILS # (AUTO) 0.1 10^3/uL (0.0-0.3); EOSINOPHILS % (AUTO) 3 % (0-10); HEMATOCRIT 23 % (40-54); HEMOGLOBIN 7.2 G/DL (13.3-17.7); LYMPHOCYTES # (AUTO) 0.7 X 10^3 (1.0-4.0); LYMPHOCYTES % (AUTO) 18 % (12-44); MEAN CORPUSCULAR HEMOGLOBIN 29 PG (25-34); MEAN CORPUSCULAR HGB CONC 31 G/DL (32-36); MEAN CORPUSCULAR VOLUME 94 FL (80-99); MEAN PLATELET VOLUME 9.7 FL (7.4-10.4); MONOCYTES # (AUTO) 0.3 X 10^3 (0.0-1.0); MONOCYTES % (AUTO) 7 % (0-12); NEUTROPHILS # (AUTO) 2.8 X 10^3 (1.8-7.8); NEUTROPHILS % (AUTO) 70 % (42-75); RED CELL DISTRIBUTION WIDTH 15.9 % (10.0-14.5)
[2019-05-06 14:37] LABS: PLATELET COUNT 1171 10^3/uL (130-400)
[2019-05-06 14:52] LABS: ALANINE AMINOTRANSFERASE 18 U/L (0-55); ALBUMIN 3.6 GM/DL (3.2-4.5); ALKALINE PHOSPHATASE 51 U/L (40-136); BILIRUBIN,TOTAL 0.3 MG/DL (0.1-1.0); BUN/CREATININE RATIO 24; CALCIUM 8.4 MG/DL (8.5-10.1); CARBON DIOXIDE 25 MMOL/L (21-32); CHLORIDE 112 MMOL/L (98-107); CREATININE SERUM 0.89 MG/DL (0.60-1.30); GFR ESTIMATED > 60; GLUCOSE 90 MG/DL (70-105); SODIUM 143 MMOL/L (135-145); TOTAL PROTEIN 6.1 GM/DL (6.4-8.2)
[2019-05-08 13:24] LABS: BASOPHILS # (AUTO) 0.1 10^3/uL (0.0-0.1); BASOPHILS % (AUTO) 1 % (0-10); EOSINOPHILS % (AUTO) 1 % (0-10); HEMATOCRIT 23 % (40-54); HEMOGLOBIN 7.4 G/DL (13.3-17.7); LYMPHOCYTES # (AUTO) 0.7 X 10^3 (1.0-4.0); LYMPHOCYTES % (AUTO) 14 % (12-44); MEAN CORPUSCULAR HEMOGLOBIN 30 PG (25-34); MEAN CORPUSCULAR HGB CONC 33 G/DL (32-36); MEAN CORPUSCULAR VOLUME 92 FL (80-99); MONOCYTES # (AUTO) 0.3 X 10^3 (0.0-1.0); MONOCYTES % (AUTO) 5 % (0-12); NEUTROPHILS # (AUTO) 4.2 X 10^3 (1.8-7.8); NEUTROPHILS % (AUTO) 79 % (42-75); RED CELL DISTRIBUTION WIDTH 15.7 % (10.0-14.5); WHITE BLOOD COUNT 5.3 10^3/uL (4.3-11.0)
[2019-05-08 13:27] LABS: PLATELET COUNT 1167 10^3/uL (130-400)
[2019-05-10 13:00] LABS: BASOPHILS # (AUTO) 0.1 10^3/uL (0.0-0.1); BASOPHILS % (AUTO) 1 % (0-10); EOSINOPHILS # (AUTO) 0.1 10^3/uL (0.0-0.3); EOSINOPHILS % (AUTO) 1 % (0-10); HEMATOCRIT 23 % (40-54); HEMOGLOBIN 7.3 G/DL (13.3-17.7); LYMPHOCYTES # (AUTO) 0.9 X 10^3 (1.0-4.0); LYMPHOCYTES % (AUTO) 14 % (12-44); MEAN CORPUSCULAR HEMOGLOBIN 30 PG (25-34); MEAN CORPUSCULAR HGB CONC 32 G/DL (32-36); MEAN CORPUSCULAR VOLUME 93 FL (80-99); MEAN PLATELET VOLUME 10.1 FL (7.4-10.4); MONOCYTES # (AUTO) 0.4 X 10^3 (0.0-1.0); MONOCYTES % (AUTO) 6 % (0-12); NEUTROPHILS # (AUTO) 4.9 X 10^3 (1.8-7.8); NEUTROPHILS % (AUTO) 78 % (42-75); RED CELL DISTRIBUTION WIDTH 15.2 % (10.0-14.5); WHITE BLOOD COUNT 6.3 10^3/uL (4.3-11.0)
[2019-05-10 13:05] LABS: PLATELET COUNT 1206 10^3/uL (130-400)
[2019-05-17 11:55] LABS: BASOPHILS % (AUTO) 3 % (0-10); EOSINOPHILS # (AUTO) 0.1 10^3/uL (0.0-0.3); EOSINOPHILS % (AUTO) 6 % (0-10); HEMATOCRIT 24 % (40-54); HEMOGLOBIN 7.8 G/DL (13.3-17.7); LYMPHOCYTES # (AUTO) 0.4 X 10^3 (1.0-4.0); LYMPHOCYTES % (AUTO) 46 % (12-44); MEAN CORPUSCULAR HEMOGLOBIN 30 PG (25-34); MEAN CORPUSCULAR HGB CONC 33 G/DL (32-36); MEAN CORPUSCULAR VOLUME 92 FL (80-99); MEAN PLATELET VOLUME 9.8 FL (7.4-10.4); MONOCYTES % (AUTO) 1 % (0-12); NEUTROPHILS # (AUTO) 0.4 X 10^3 (1.8-7.8); NEUTROPHILS % (AUTO) 44 % (42-75); PLATELET COUNT 67 10^3/uL (130-400); RED CELL DISTRIBUTION WIDTH 14.9 % (10.0-14.5); WHITE BLOOD COUNT 0.9 10^3/uL (4.3-11.0)
[2019-05-20 11:37] LABS: BASOPHILS % (AUTO) 0 % (0-10); EOSINOPHILS % (AUTO) 5 % (0-10); HEMATOCRIT 22 % (40-54); HEMOGLOBIN 7.2 G/DL (13.3-17.7); LYMPHOCYTES # (AUTO) 0.4 X 10^3 (1.0-4.0); LYMPHOCYTES % (AUTO) 80 % (12-44); MEAN CORPUSCULAR HEMOGLOBIN 30 PG (25-34); MEAN CORPUSCULAR HGB CONC 33 G/DL (32-36); MEAN CORPUSCULAR VOLUME 91 FL (80-99); MEAN PLATELET VOLUME 9.3 FL (7.4-10.4); MONOCYTES % (AUTO) 5 % (0-12); NEUTROPHILS # (AUTO) 0.1 X 10^3 (1.8-7.8); NEUTROPHILS % (AUTO) 12 % (42-75); RED CELL DISTRIBUTION WIDTH 14.4 % (10.0-14.5)
[2019-05-20 11:38] LABS: PLATELET COUNT 12 10^3/uL (130-400); WHITE BLOOD COUNT 0.4 10^3/uL (4.3-11.0)
[2019-05-23 14:34] LABS: BASOPHILS % (AUTO) 3 % (0-10); EOSINOPHILS % (AUTO) 3 % (0-10); LYMPHOCYTES # (AUTO) 0.3 X 10^3 (1.0-4.0); LYMPHOCYTES % (AUTO) 71 % (12-44); MEAN CORPUSCULAR HGB CONC 34 G/DL (32-36); MEAN CORPUSCULAR VOLUME 89 FL (80-99); MEAN PLATELET VOLUME 10.7 FL (7.4-10.4); MONOCYTES % (AUTO) 3 % (0-12); NEUTROPHILS # (AUTO) 0.1 X 10^3 (1.8-7.8); NEUTROPHILS % (AUTO) 20 % (42-75)
[2019-05-23 14:36] LABS: HEMATOCRIT 15 % (40-54); HEMOGLOBIN 5.3 G/DL (13.3-17.7); MEAN CORPUSCULAR HEMOGLOBIN 30 PG (25-34); PLATELET COUNT 38 10^3/uL (130-400); WHITE BLOOD COUNT 0.4 10^3/uL (4.3-11.0)
[~2019-05-24] VITALS: Ht 188 cm; Wt 81.6 kg
[~2019-05-24 09:09] MED LIST changes: +ACETAMINOPHEN 500 MG TAB (TYLENOL) CANCER CTR ONE; +ANAG0.5C3 PO; +BISA5TAB8 PO; +DECITABINE 40 MG in NS (IVPB) CANCER CENTER 50 ML IV SCH; -DILT240C PO; +DILT240C53 PO; +DILT240C91 PO; +FURO40TA4 PO; +GBPN600T PO; +LISI-556 PO; +METO50TA15 PO; +NF-ANAG0.5 PO; +NS (IVPB) CANCER CENTER 250 ML ONE; +NS IV 1000 ML (CANCER CTR) IV SCH; +NS IV 500 ML (CANCER CENTER) 500 ML ONE; +ONDANSETRON MDV (CANCER CENTER 16 MG, DEXAMETHASONE INJECTION 10 MG in NS (IVPB) CANCER... IV SCH; +ONDANSETRON MDV (CANCER CENTER 8 MG, DEXAMETHASONE INJ (CANCER CTR) 4 MG in NS (IVPB) C... IV SCH; +POTA20TA8 PO; +PRD10T PO; -TAMS0.4C98 PO; +TMSL.4C PO; +diphenhydrAMINE 25 MG TAB (BENADRYL) CANCER CENTER PO ONE
[2019-07-08 15:41] LABS: BASOPHILS % (AUTO) 0 % (0-10); EOSINOPHILS % (AUTO) 0 % (0-10); HEMATOCRIT 23 % (40-54); HEMOGLOBIN 7.1 G/DL (13.3-17.7); LYMPHOCYTES # (AUTO) 0.3 X 10^3 (1.0-4.0); LYMPHOCYTES % (AUTO) 3 % (12-44); MEAN CORPUSCULAR HEMOGLOBIN 29 PG (25-34); MEAN CORPUSCULAR HGB CONC 31 G/DL (32-36); MEAN CORPUSCULAR VOLUME 93 FL (80-99); MEAN PLATELET VOLUME 10.9 FL (7.4-10.4); MONOCYTES # (AUTO) 0.4 X 10^3 (0.0-1.0); MONOCYTES % (AUTO) 3 % (0-12); NEUTROPHILS % (AUTO) 94 % (42-75); PLATELET COUNT 641 10^3/uL (130-400); RED CELL DISTRIBUTION WIDTH 17.2 % (10.0-14.5); WHITE BLOOD COUNT 10.7 10^3/uL (4.3-11.0)
[2019-07-08 16:00] LABS: ALANINE AMINOTRANSFERASE 33 U/L (0-55); ALBUMIN 3.8 GM/DL (3.2-4.5); ALKALINE PHOSPHATASE 49 U/L (40-136); BILIRUBIN,TOTAL 0.4 MG/DL (0.1-1.0); BUN/CREATININE RATIO 39; CALCIUM 8.8 MG/DL (8.5-10.1); CARBON DIOXIDE 25 MMOL/L (21-32); CHLORIDE 108 MMOL/L (98-107); CREATININE SERUM 0.82 MG/DL (0.60-1.30); GFR ESTIMATED > 60; GLUCOSE 135 MG/DL (70-105); POTASSIUM 4.4 MMOL/L (3.6-5.0); SODIUM 141 MMOL/L (135-145); TOTAL PROTEIN 6.1 GM/DL (6.4-8.2)
[2019-07-11] VITALS (8 sets, daily range): BP systolic 100–144; BP diastolic 44–99
== END 2019-07-09 10:53 | disposition home or self-care (01) ==
LOC: ONC 09:09
PROVIDERS: ATTEND Internal Medicine Hematology & Oncology
DX: Z51.11 Encounter for antineoplastic chemotherapy (principal); D47.3 Essential (hemorrhagic) thrombocythemia; C94.6 Myelodysplastic disease, not elsewhere classified; D64.9 Anemia, unspecified
CPT/HCPCS: 36415; 36430; 36591; 80053; 83615; 85025; 86850; 86900; 86901; 86920; 96375; 96413

== ENCOUNTER 2019-05-30 19:10 | Emergency (ER) | payer MEDICARE, OTHER ==
[~2019-05-30] VITALS: Ht 187 cm; Wt 77.8 kg
[~2019-05-30 19:10] MED LIST changes: -ACETAMINOPHEN 500 MG TAB (TYLENOL) CANCER CTR ONE; -DECITABINE 40 MG in NS (IVPB) CANCER CENTER 50 ML IV SCH; +DILT240C PO; -DILT240C91 PO; -NS (IVPB) CANCER CENTER 250 ML ONE; -NS IV 1000 ML (CANCER CTR) IV SCH; -NS IV 500 ML (CANCER CENTER) 500 ML ONE; -ONDANSETRON MDV (CANCER CENTER 16 MG, DEXAMETHASONE INJECTION 10 MG in NS (IVPB) CANCER... IV SCH; -ONDANSETRON MDV (CANCER CENTER 8 MG, DEXAMETHASONE INJ (CANCER CTR) 4 MG in NS (IVPB) C... IV SCH; +TAMS0.4C98 PO; -TMSL.4C PO; -diphenhydrAMINE 25 MG TAB (BENADRYL) CANCER CENTER PO ONE
[2019-05-30 19:38] LABS: MEAN CORPUSCULAR HEMOGLOBIN 29 PG (25-34); MEAN CORPUSCULAR HGB CONC 32 G/DL (32-36); MEAN CORPUSCULAR VOLUME 90 FL (80-99); MEAN PLATELET VOLUME 10.1 FL (7.4-10.4); RED CELL DISTRIBUTION WIDTH 17.1 % (10.0-14.5)
[2019-05-30 19:43] LABS: WHITE BLOOD COUNT 1.1 10^3/uL (4.3-11.0)
[2019-05-30 19:44] LABS: HEMATOCRIT 19 % (40-54); PLATELET COUNT 4419 10^3/uL (130-400)
[2019-05-30 19:52] LABS: INR 1.6 (0.8-1.4); PROTHROMBIN TIME PATIENT 19.6 SEC (12.2-14.7)
[2019-05-30 20:07] LABS: ALBUMIN 3.1 GM/DL (3.2-4.5); BILIRUBIN,TOTAL 0.2 MG/DL (0.1-1.0); CALCIUM 7.8 MG/DL (8.5-10.1); CREATININE SERUM 1.27 MG/DL (0.60-1.30); POTASSIUM 4.2 MMOL/L (3.6-5.0); TOTAL PROTEIN 6.1 GM/DL (6.4-8.2)
--- NOTE | 2019-05-30 20:14 | Diagnostic Imaging Report ---
INDICATION: Shortness of breath. COMPARISON: 04/26/2019. FINDINGS: There is cardiomegaly and vascular congestion. There is 5 lobe interstitial opacity. There is presumed recurrence of interstitial edema pleural fluid may be present on the right. IMPRESSION: Failure pattern with edema, vascular congestion, cardiomegaly and suspicion for right-sided pleural fluid. Dictated by: Dictated on workstation # [id number]
--- NOTE | 2019-05-30 20:28 | NUR ---
blood bank called. two units ready
--- NOTE | 2019-05-30 20:39 | Diagnostic Imaging Report ---
PROCEDURE: CT head without contrast. TECHNIQUE: Multiple contiguous axial images were obtained through the brain without the use of intravenous contrast. Auto Exposure Controls were utilized during the CT exam to meet ALARA standards for radiation dose reduction. INDICATION: Thrombocytosis. There is no hemorrhage, hydrocephalus, edema, mass, mass effect or evidence for elevated intracerebral pressures. There has been no change when correlated with head CT 04/21/2019. The orbits, sinuses, and calvarium nonacute. IMPRESSION: Stable head CT. No acute finding. Dictated by: Dictated on workstation # [id number]
[2019-05-30] MEDS ORDERED: CEFEPIME INJECTION 2,000 MG in WATER (STERILE) FOR INJECTION 20 ML IV ONE (21:00)
[2019-05-30] MEDS ORDERED: NS IV 500 ML 500 ML IV SCH (21:00)
--- NOTE | 2019-05-30 21:28 | ED General ---
General Chief Complaint: General Problems/Pain Stated Complaint: PLATELET HIGH Source of Information: Family, Old Records Exam Limitations: No Limitations History of Present Illness Date Seen by Provider: May 30, 2019 Time Seen by Provider: 19:10 Initial Comments This 73-year-old gentleman with a myelodysplastic disorder presents to the emergency room via EMS after having several days of poor oral intake and diarrhea. He was [facility] the [facility] on Monday and was doing fairly well at that time. His condition has declined since then. He is now hypoxic and not responsive to voice. He is febrile with a temperature of 101.6. Reportedly he had labs done earlier in the day and has a hemoglobin of 6 and platelets of 4000 (this was reported incorrectly as platelets were later found to be 4.4 million). EMS reports oxygen saturation was 88 percent on room air but responded into the 90s with 6 L by nasal cannula. Patient had chemotherapy about 2 weeks ago and is scheduled for chemotherapy again on June 10. He was admitted to [facility] in [place] in April but had been transferred to [facility] in [place] for plateletpheresis. Allergies and Home Medications Allergies Coded Allergies: Tetanus Vaccines and Toxoid (Verified Allergy, Unknown, 11/17/18) Home Medications Acetaminophen 325 Mg Tablet, 325-650 MG PO Q4H PRN for PAIN-MILD OR TEMPATURE, (Reported) Aspirin 81 Mg Tab.chew, 81 MG PO DAILY Prescribed by: KEVIN GALLEGOS on 04/26/19 111 Clopidogrel Bisulfate 75 Mg Tablet, 75 MG PO DAILY Prescribed by: KEVIN GALLEGOS on 04/26/19 111 Diltiazem HCl 240 Mg Cap.er.24h, 240 MG PO DAILY, (Reported) Finasteride 5 Mg Tablet, 5 MG PO DAILY, (Reported) Furosemide 40 Mg Tablet, 40 MG PO DAILY Prescribed by: KEVIN GALLEGOS on 04/26/19 111 Lisinopril 5 Mg Tablet, 5 MG PO DAILY Prescribed by: KEVIN GALLEGOS on 04/26/19 111 Metoprolol Tartrate 50 Mg Tablet, 50 MG PO BID Prescribed by: KEVIN GALLEGOS on 04/26/19 1114 Potassium Chloride 20 Meq Tab.er.prt, 40 MEQ PO DAILY@0600 Prescribed by: KEVIN GALLEGOS on 04/26/19 1114 Tamsulosin HCl 0.4 Mg Cap, 0.4 MG PO DAILY, (Reported) Patient Home Medication List Home Medication List Reviewed: Yes Review of Systems Review of Systems Constitutional: see HPI EENTM: see HPI Respiratory: see HPI Cardiovascular: no symptoms reported Gastrointestinal: see HPI Genitourinary: no symptoms reported Musculoskeletal: no symptoms reported Skin: no symptoms reported Psychiatric/Neurological: See HPI Hematologic/Lymphatic: See HPI Immunological/Allergic: see HPI Past Unyuzuv-Kevvtw-Jeihdk Hx Past Med/Social Hx: Reviewed and Corrections made Patient Social History Type Used: Cigarettes Former Smoker, Quit: Jan 07, 2019 Recent Foreign Travel: No Contact w/Someone Who Travel: No Recent Hopitalizations: No Seasonal Allergies Seasonal Allergies: No Past Medical History Surgeries: Yes (R Lower Leg amputation) Tonsillectomy Respiratory: No Cardiac: Yes Atrial Fibrillation, Hypertension Neurological: No Genitourinary: Yes (hx of hematuria) Gastrointestinal: No Musculoskeletal: No Endocrine: No HEENT: Yes Hearing Impairment: Hard of Hearing, Bilateral Hearing Aide Cancer: Yes (myelodysplastic disorder with thrombocythemia) Psychosocial: No Integumentary: Yes (l upper ankle wound) 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 oz. 88.003048ja; 23.70 BMI Method:Stated General Appearance: No Apparent Distress, WD/WN HEENT: Normal ENT Inspection, Other (mucous membranes appear dry. Patient will not open his mouth or eyes) Neck: Normal Inspection Respiratory: Lungs Clear, Normal Breath Sounds, No Accessory Muscle Use, No Respiratory Distress Cardiovascular: Regular Rate, Rhythm, No Edema, No Murmur, Normal Peripheral Pulses Gastrointestinal: Normal Bowel Sounds, Non Tender, Soft Extremity: Normal Inspection, No Pedal Edema Neurologic/Psychiatric: Other (minimally responsive with no purposeful movements. Protecting his own airway.) Skin: normal color, warm/dry Focused Exam Lactate Level 05/30/19 19:21: Lactic Acid Level 2.00 Lactic Acid Level Progress/Results/Core Measures Suspected Sepsis SIRS Temperature: Pulse: 66 Respiratory Rate: 20 Laboratory Tests 05/30/19 19:21: White Blood Count 1.1*L Blood Pressure / Mean: 05/30/19 19:21: Lactic Acid Level 2.00 Laboratory Tests 05/30/19 19:21: Creatinine 1.27, INR Comment 1.6H, Platelet Count 4419*H, Total Bilirubin 0.2 Results/Orders Lab Results Laboratory Tests Test 05/30/19 19:21 05/30/19 23:05 Range/Units White Blood Count 1.1 *L 4.3-11.0 10^3/uL Red Blood Count 2.06 L 4.35-5.85 10^6/uL Hemoglobin 6.0 *L 13.3-17.7 G/DL Hematocrit 19 *L 40-54 % Mean Corpuscular Volume 90 80-99 FL Mean Corpuscular Hemoglobin 29 25-34 PG Mean Corpuscular Hemoglobin Concent 32 32-36 G/DL Red Cell Distribution Width 17.1 H 10.0-14.5 % Platelet Count 4419 *H 130-400 10^3/uL Mean Platelet Volume 10.1 7.4-10.4 FL Neutrophils (%) (Auto) 42-75 % Lymphocytes (%) (Auto) 12-44 % Monocytes (%) (Auto) 0-12 % Eosinophils (%) (Auto) 0-10 % Basophils (%) (Auto) 0-10 % Neutrophils # (Auto) 1.8-7.8 X 10^3 Lymphocytes # (Auto) 1.0-4.0 X 10^3 Monocytes # (Auto) 0.0-1.0 X 10^3 Eosinophils # (Auto) 0.0-0.3 10^3/uL Basophils # (Auto) 0.0-0.1 10^3/uL Prothrombin Time 19.6 H 12.2-14.7 SEC INR Comment 1.6 H 0.8-1.4 Activated Partial Thromboplast Time 45 H 24-35 SEC Sodium Level 137 135-145 MMOL/L Potassium Level 4.2 3.6-5.0 MMOL/L Chloride Level 105 98-107 MMOL/L Carbon Dioxide Level 19 L 21-32 MMOL/L Anion Gap 13 5-14 MMOL/L Blood Urea Nitrogen 26 H 7-18 MG/DL Creatinine 1.27 0.60-1.30 MG/DL Estimat Glomerular Filtration Rate 55 BUN/Creatinine Ratio 20 Glucose Level 102 70-105 MG/DL Lactic Acid Level 2.00 0.50-2.00 MMOL/L Calcium Level 7.8 L 8.5-10.1 MG/DL Corrected Calcium 8.5 8.5-10.1 MG/DL Total Bilirubin 0.2 0.1-1.0 MG/DL Aspartate Amino Transf (AST/SGOT) 26 5-34 U/L Alanine Aminotransferase (ALT/SGPT) 21 0-55 U/L Alkaline Phosphatase 58 40-136 U/L C-Reactive Protein High Sensitivity 11.40 H 0.00-0.50 MG/DL B-Type Natriuretic Peptide 232.1 H <100.0 PG/ML Total Protein 6.1 L 6.4-8.2 GM/DL Albumin 3.1 L 3.2-4.5 GM/DL Urine Color YELLOW Urine Clarity CLEAR Urine pH 6.0 5-9 Urine Specific [place] 1.020 1.016-1.022 Urine Protein 1+ H NEGATIVE Urine Glucose (UA) NEGATIVE NEGATIVE Urine Ketones TRACE H NEGATIVE Urine Nitrite NEGATIVE NEGATIVE Urine Bilirubin NEGATIVE NEGATIVE Urine Urobilinogen 0.2 < = 1.0 MG/DL Urine Leukocyte Esterase NEGATIVE NEGATIVE Urine RBC (Auto) NEGATIVE NEGATIVE Urine RBC NONE /HPF Urine WBC NONE /HPF Urine Crystals PRESENT H /LPF Urine Amorphous Sediment LARGE CARRIE URATES H /LPF Urine Bacteria NEGATIVE /HPF Urine Casts PRESENT /LPF Urine Hyaline Casts 10-25 H /LPF Urine Mucus SMALL H /LPF Urine Culture Indicated CULTURE PENDING Micro Results Microbiology 05/30/19 Influenza Types A,B Antigen (CARLOS) - Final, Complete My Orders Orders - GLORIA WISE MD Cbc With Automated Diff (05/30/19 19:23) Comprehensive Metabolic Panel (05/30/19 19:23) Blood Culture (05/30/19 19:23) Sputum Culture (05/30/19 19:23) Urinalysis (05/30/19 19:23) Urine Culture (05/30/19 19:23) Protime With Inr (05/30/19 19:23) Partial Thromboplastin Time (05/30/19 19:23) Chest 1 View, Ap/Pa Only (05/30/19 19:23) Ed Iv/Invasive Line Start (05/30/19 19:23) Ed Iv/Invasive Line Start (05/30/19 19:23) Vital Signs Adult Sepsis Patie Q15M (05/30/19 19:23) O2 (05/30/19 19:23) Remove Rings In Anticipation O (05/30/19 19:23) Lactic Acid Analyzer (05/30/19 19:23) Ct Head Wo (05/30/19 19:23) Red Cells Leukocytes Reduced (05/30/19 19:23) Influenza A And B Antigens (05/30/19:23) Type And Screen (05/30/19:23) Ekg-Prn For Chest Pain Or Rhyt (05/30/19 19:43) Ekg Tracing (05/30/19 20:11) BNP (05/30/19 20:43) Hs C Reactive Protein (05/30/19 20:43) Cefepime Injection (Maxipime Injection) (05/30/19 21:00) Ns Iv 500 Ml (Sodium Chloride 0.9%) (05/30/19 21:00) Luis Cath (05/30/19 20:49) Ct Angio Chest W (05/30/19 21:18) Arterial Blood Gas (05/30/19 21:36) Iohexol Injection (Omnipaque 350 Mg/Ml 1 (05/30/19 22:15) Received Contrast (Hold Metformin- Contr (05/30/19 22:15) Ns (Ivpb) (Sodium Chloride 0.9% Ivpb Bag (05/30/19 22:15) Acetaminophen Suppository (Tylenol Suppo (05/30/19 22:30) Lidocaine 2% (Urojet) (Xylocaine Urojet) (05/30/19 23:00) Lidocaine 2% (Urojet) (Xylocaine Urojet) (05/30/19 22:56) Albuterol/Ipra Inhalation Soln (Duoneb I (05/30/19 23:30) Svn Small Volume Nebulizer (05/30/19 23:21) Medications Given in ED Current Medications Medications Dose Ordered Sig/Orville Route Start Time Stop Time Status Last Admin Dose Admin Acetaminophen 650 mg ONCE ONCE NM 05/30/19 22:30 05/30/19 22:31 DC 05/30/19 23:00 650 MG Albuterol/ Ipratropium 3 ml ONCE ONCE INH 05/30/19 23:30 05/30/19 23:31 DC 05/30/19 23:32 3 ML Cefepime HCl 2000 mg/Sterile Water 20 ml @ 240 mls/hr ONCE ONCE IV 05/30/19 21:00 05/30/19 21:04 DC 05/30/19 22:24 240 MLS/HR Iohexol 150 ml ONCE ONCE IV 05/30/19 22:15 05/30/19 22:16 DC 05/30/19 22:13 125 ML Lidocaine HCl 10 ml ONCE ONCE TOP 05/30/19 23:00 05/30/19 23:01 DC 05/30/19 23:15 10 ML Sodium Chloride 100 ml ONCE ONCE IV 05/30/19 22:15 05/30/19 22:16 DC 05/30/19 22:13 80 ML Vital Signs/I&O 05/30/19 05/30/19 05/30/19 05/30/19 21:10 22:31 22:37 23:00 Temp 38.7 38.8 37.8 38.7 Pulse 66 71 73 Resp 20 22 22 B/P (MAP) 129/49 133/51 Pulse Ox 98 94 93 O2 Delivery OxyMask OxyMask OxyMask O2 Flow Rate 6.00 6.00 6.00 05/30/19 05/30/19 23:12 23:33 Pulse 74 Resp 24 B/P (MAP) 123/49 Pulse Ox 96 O2 Delivery OxyMask OxyMask O2 Flow Rate 6.00 10.00 Capillary Refill : Progress Note : Progress Note 21:22 - Septic workup is being pursued along with hematologic workup. Patient was found to have a platelet count of 4.4 million with rather severe anemia and leukopenia. Patient was given a liter of IV fluid. Oxygen support was provided with high flow mask which resolved his hypoxia. A 1 L normal saline bolus was administered as started by EMS. Transfusion of 2 units packed red blood cells have been ordered and was initiated. However, this was stopped shortly after the first unit was started after discussing with Dr. Goodman. Dr. Goodman ([facility] oncologist) advises that this patient receive plateletpheresis immediately by whatever means necessary. Although patient is established with [facility] in [place], he suggested checking with the [facility] to see if they can provide this service to expedite his care. I also discussed with Dr. Gallegos, his primary care provider. She also recommended transfer to a comprehensive cancer center if family elects aggressive care. Family does elect aggressive care and full CODE STATUS at this time. 21:44 - I have checked with both [facility] in [place]. Neither facility can perform plateletpheresis. I have communicated the case to Dr. Wagner at [facility] in [place]. She is reviewing the case with oncology and will call back. We have also been checking with multiple transport companies. No one can fly into [place] at present time due to weather. It will be at least 2-1/2-3 hours before flying into [place] is possible. Patient remained stable at this time. 22:19 - Transfer has been accepted by Dr. Wagner. After conversing with oncology, it was recommended that the patient finish a unit of PRBC. Patient's oxygen status remains stable at this time. Pulses are strong and lungs are clear. He is receiving cefepime 2 g and then we will finish the unit of blood. In the meantime, CT angiogram of the chest has been performed. Results are pending. 23:31 - Patient remains stable at this time. Oxygen saturations are in the 90s on high flow oxygen mask. He has become much more alert and is now talking and answering questions. He is confused. He was quite combative with trying to start a Luis catheter but we were able to calm him verbally and place the catheter. EMS has been dispatched for transfer to [facility]. CT angiogram was negative for pulmonary emboli. Pneumonia was suspected. Incidental cholelithiasis was noted. ECG Initial ECG Impression Date: May 30, 2019 Initial ECG Impression Time: 19:37 Initial ECG Rate: 66 Initial ECG Rhythm: Normal Sinus Initial ECG Intervals: Normal Initial ECG Impression: Normal Comment Normal sinus rhythm with no ST elevation or depression. No abnormal intervals or axis deviation. Diagnostic Imaging Diagonstic Imaging: CT Plain Films/CT/US/NM/MRI: head Comments CT head viewed by me and report reviewed. See report below: NAME: FARZAD HANNA MED REC#: [id number] PT STATUS: REG ER : 1945 PHYSICIAN: GLORIA WISE MD ADMIT DATE: 05/30/19/ER Signed Date of Exam:05/30/19 CT HEAD WO PROCEDURE: CT head without contrast. TECHNIQUE: Multiple contiguous axial images were obtained through the brain without the use of intravenous contrast. Auto Exposure Controls were utilized during the CT exam to meet ALARA standards for radiation dose reduction. INDICATION: Thrombocytosis. There is no hemorrhage, hydrocephalus, edema, mass, mass effect or evidence for elevated intracerebral pressures. There has been no change when correlated with head CT 04/21/2019. The orbits, sinuses, and calvarium nonacute. IMPRESSION: Stable head CT. No acute finding. Dictated by: Dictated on workstation # [id number] Dict: 05/30/192030 Trans: 05/30/192053 [facility] [id number] Interpreted by: FARZAD SIMON Electronically signed by: FARZAD SIMON 05/30/192053 Diagonstic Imaging: Xray Plain Films/CT/US/NM/MRI: chest Comments Chest x-ray viewed by me and report reviewed. See report below: NAME: FARZAD HANNA [facility] REC#: [id number] PT STATUS: REG ER : 1945 PHYSICIAN: GLORIA WISE MD ADMIT DATE: 05/30/19/ER Signed Date of Exam:05/30/19 CHEST 1 VIEW, AP/PA ONLY INDICATION: Shortness of breath. COMPARISON: 04/26/2019. FINDINGS: There is cardiomegaly and vascular congestion. There is 5 lobe interstitial opacity. There is presumed recurrence of interstitial edema pleural fluid may be present on the right. IMPRESSION: Failure pattern with edema, vascular congestion, cardiomegaly and suspicion for right-sided pleural fluid. Dictated by: Dictated on workstation # [id number] Dict: 05/30/192010 Trans: 05/30/192053 [id number] Interpreted by: FARZAD SIMON Electronically signed by: FARZAD SIMON 05/30/192053 Diagonstic Imaging: CT Plain Films/CT/US/NM/MRI: chest Comments CT angiogram of the chest viewed by me and [facility] report reviewed. There were no central pulmonary emboli. Motion artifact was present. There is moderate cardiomegaly. Mediastinal lymphadenopathy with multiple bilateral pulmonary nodules noted. Irregular consolidation in the bilateral bases likely represents pneumonia. Small pleural effusions noted. Incidental finding of distended gallbladder with multiple gallstones. Departure Impression Primary Impression: Thrombocythemia Additional Impressions: Febrile illness Severe anemia Leukopenia Qualified Codes: D72.819 - Decreased white blood cell count, unspecified Altered mental status Qualified Codes: R41.82 - Altered mental status, unspecified Hypoxia Bilateral pneumonia Qualified Codes: J18.1 - Lobar pneumonia, unspecified organism Cholelithiasis Qualified Codes: K80.20 - Calculus of gallbladder without cholecystitis without obstruction Disposition: 02 ER T-[facility] Condition: Stable Transfer Transfer Reason: Exceeds level of care Time Spoke to Accepting Phy: 21:44 Transfer Progress Notes Care accepted by Dr. Wagner at [facility]. Departure-Patient Inst. Referrals: KEVIN GALLEGOS DO (PCP/Family) Primary Care Physician Copy Copies To 1: KEVIN GALLEGOS JOSHUA T MD May 30, 2019 21:28
--- NOTE | 2019-05-30 22:05 | NUR ---
PT TO CT DEPT IN STABLE CONDITION
[2019-05-30] MEDS ORDERED: IOHEXOL 350 MG/ML 150 ML (OMNIPAQUE 350) VIAL IV ONE (22:15)
[2019-05-30] MEDS ORDERED: NS 100 ML (IVPB) BAG IV ONE (22:15)
[2019-05-30] MEDS ORDERED: HOLD METFORMIN - RECEIVED CONTRAST 20 ML VIAL IV SCH (22:15)
[2019-05-30] MEDS ORDERED: ACETAMINOPHEN 650 MG SUPP (TYLENOL) PR ONE (22:30)
[2019-05-30 22:31] VITALS: BP 129/49
[2019-05-30 22:37] VITALS: BP 133/51
[2019-05-30] MEDS ORDERED: LIDOCAINE UROJET 2% GEL 10 ML PKG ONE (22:56)
[2019-05-30] MEDS ORDERED: LIDOCAINE UROJET 2% GEL 10 ML PKG TOP ONE (23:00)
[2019-05-30 23:12] VITALS: BP 123/49
[2019-05-30 23:17] LABS: BILIRUBIN,URINE NEGATIVE (NEGATIVE); CLARITY,URINE CLEAR; COLOR,URINE YELLOW; GLUCOSE, URINE (UA) NEGATIVE (NEGATIVE); KETONES,URINE TRACE (NEGATIVE); LEUKOCYTE ESTERASE ,URINE NEGATIVE (NEGATIVE); NITRITE,URINE NEGATIVE (NEGATIVE); PROTEIN,URINE 1+ (NEGATIVE)
[2019-05-30 23:25] LABS: AMORPHOUS SEDIMENT,UR LARGE AMOR URATES /LPF; BACTERIA,URINE NEGATIVE /HPF
[2019-05-30] MEDS ORDERED: RT-ALBUTEROL/IPRATROPIUM 3 ML (DUONEB) VIAL INH ONE (23:30)
[2019-05-30 23:50] VITALS: BP 126/51
--- NOTE | 2019-05-31 07:26 | Diagnostic Imaging Report ---
PROCEDURE: CT angiography of the chest with contrast. TECHNIQUE: Multiple contiguous axial images were obtained through the chest after uneventful bolus administration of intravenous contrast. 3D reconstructed CTA MIP acquisitions were also performed. Auto Exposure Controls were utilized during the CT exam to meet ALARA standards for radiation dose reduction. INDICATION: Shortness of breath. FINDINGS: There are patchy bibasal pulmonary infiltrates. Superimposed pulmonary nodules cannot be excluded. There are small bilateral pleural effusions. There is no pneumothorax. There is cardiomegaly. The thoracic aorta is normal in caliber without evidence of dissection. There are no obvious filling defects seen within the pulmonary arteries to suggest pulmonary embolism. There are no pathologically enlarged adenopathy in the chest. There is a 3.4 cm mass posterior to the right lobe of the liver. There are degenerative changes in the spine. IMPRESSION: Examination is technically limited due to respiratory motion. No obvious filling defects within the pulmonary arteries to suggest pulmonary embolism. Additionally there is no evidence of dissection. Cardiomegaly. Patchy bibasilar pulmonary infiltrates and small bilateral pleural effusions. Some superimposed pulmonary nodules cannot be excluded. Recommend short interval follow-up CT to ensure stability 3.4 cm mass posterior to the right lobe of liver of uncertain etiology. Possibility of malignancy cannot be excluded. Recommend further evaluation with CT-guided biopsy. Dictated by: Dictated on workstation # [id number]
== END 2019-05-30 23:52 | disposition short-term general hospital (02) ==
LOC: ER 19:10 → EDUNIT# 19:18 → ER 23:52
DX: D47.3 Essential (hemorrhagic) thrombocythemia (principal); D64.9 Anemia, unspecified; D72.819 Decreased white blood cell count, unspecified; R41.82 Altered mental status, unspecified; R09.02 Hypoxemia; J18.9 Pneumonia, unspecified organism; K80.20 Calculus of gallbladder without cholecystitis without obstruction; I10 Essential (primary) hypertension; I48.91 Unspecified atrial fibrillation; Z88.7 Allergy status to serum and vaccine; Z79.82 Long term (current) use of aspirin; Z79.02 Long term (current) use of antithrombotics/antiplatelets; Z87.891 Personal history of nicotine dependence; Z90.89 Acquired absence of other organs; Z86.2 Personal history of diseases of the blood and blood-forming organs and certain disorders involving the immune mechanism
CPT/HCPCS: 36415; 70450; 71045; 71275; 80053; 81000; 83605; 83880; 85025; 85610; 85730; 86141; 86850; 86900; 86901; 86920; 87040; 87077; 87088; 87804; 93005; 94640; 96374

== ENCOUNTER 2019-06-30 23:46 | Emergency (ER) | payer MEDICARE, OTHER ==
[~2019-06-30] VITALS: Ht 187 cm; Wt 77.8 kg
[~2019-06-30 23:46] MED LIST changes: -DILT240C PO; +DILT240C91 PO; -TAMS0.4C98 PO; +TMSL.4C PO
[2019-07-01] LABS: BASOPHILS % (AUTO) 1 % (0-10); EOSINOPHILS % (AUTO) 0 % (0-10); LYMPHOCYTES # (AUTO) 0.8 X 10^3 (1.0-4.0); LYMPHOCYTES % (AUTO) 13 % (12-44); MEAN CORPUSCULAR HEMOGLOBIN 29 PG (25-34); MEAN CORPUSCULAR HGB CONC 32 G/DL (32-36); MEAN CORPUSCULAR VOLUME 91 FL (80-99); MEAN PLATELET VOLUME 10.4 FL (7.4-10.4); MONOCYTES # (AUTO) 0.7 X 10^3 (0.0-1.0); MONOCYTES % (AUTO) 11 % (0-12); NEUTROPHILS # (AUTO) 4.4 X 10^3 (1.8-7.8); NEUTROPHILS % (AUTO) 75 % (42-75); PLATELET COUNT 453 10^3/uL (130-400); RED CELL DISTRIBUTION WIDTH 15.1 % (10.0-14.5); WHITE BLOOD COUNT 5.9 10^3/uL (4.3-11.0)
[2019-07-01 00:02] LABS: HEMATOCRIT 17 % (40-54); HEMOGLOBIN 5.5 G/DL (13.3-17.7)
--- NOTE | 2019-07-01 00:02 | ED General ---
General Chief Complaint: General Problems/Pain Stated Complaint: ANEMIA Source of Information: Patient, Old Records History of Present Illness Date Seen by Provider: Jun 30, 2019 Time Seen by Provider: 23:37 Initial Comments PT ARRIVES VIA [facility] IN [place], [place] PT HAS ORDERS FOR TRANSFUSION FROM DR. HERNANDEZ, [facility] PCP [facility], TO BE DONE AT [facility], BUT EMS BROUGHT HIM HERE INSTEAD PT HAS MYELODYSPLASTIC SYNDROME RN SPOKE WITH [facility], AND THEY REPORT THAT PT'S HEMOGLOBIN AT 1825 TONIGHT WAS 5.7, AND THEY RECEIVED ORDERS FROM DR. HERNANDEZ TO TRANSPORT THE PT TO [facility] FOR TRANSFUSION, AND THIS IS WHAT [facility] INSTRUCTED EMS TO DO. ALLEGEDLY AT SOME POINT, REPORTEDLY THE PT'S FAMILY INSTRUCTED EMS TO BRING HIM HERE. NO FAMILY HAVE ARRIVED TO BE WITH PT IN ER, NOR HAVE ANY FAMILY MEMBERS CALLED ABOUT PT. 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 PT DENIES THAT HE HAS EVER HAD INFECTION IN THE STUMP PT HAD NSTEMI 04/22/19, PULMONARY EDEMA/CHF, SIRS WITH PNEUMONIA AND RESPIRATORY FAILURE, ANEMIA AND THROMBOCYTOSIS AND WAS TRANSFERRED TO [facility] IN [place] HAS HISTORY OF ATRIAL FIB WITH RVR PT WAS IN THIS ER 05/30/[address] [facility] IN [place] FOR PNEUMONIA WITH RESPIRATORY FAILURE AND MYELODYSPLASTIC SYNDROME WITH WBC 1.1, HGB 6.0 AND PLATELETS OF 4,[phone],000 FOR PLATELETPHERESIS PT HAS PICC LINE IN PLACE IN RIGHT ARM PT DENIES THAT HE HAS RECEIVED ANY IV ANTIBIOTICS RECENTLY, PT STATES HE DOES NOT KNOW IF HE IS GETTING ANY ORAL ANTIBIOTICS--STATES HE DOES NOT KNOW WHAT PILLS THEY GIVE HIM OR WHAT THEY ARE FOR. STATES "THEY ONLY DO WITHDRAWLS FROM IT EVERY WEEK" PCP: DR. HERNANDEZ [facility]. DR BURCH WAS HIS DR BEFORE HE WENT INTO [facility]. PT MOVED HERE FROM [place] IN 2019 Allergies and Home Medications Allergies Coded Allergies: Tetanus Vaccines and Toxoid (Verified Allergy, Unknown, 11/17/18) Home Medications Acetaminophen 325 Mg Tablet, 325-650 MG PO Q4H PRN for PAIN-MILD OR TEMPATURE, (Reported) Aspirin 81 Mg Tab.chew, 81 MG PO DAILY Prescribed by: KEVIN BURCH on 04/26/19 1114 Clopidogrel Bisulfate 75 Mg Tablet, 75 MG PO DAILY Prescribed by: KEVIN BURCH on 04/26/19 1114 Diltiazem HCl 240 Mg Cap.er.24h, 240 MG PO DAILY, (Reported) Finasteride 5 Mg Tablet, 5 MG PO DAILY, (Reported) Furosemide 40 Mg Tablet, 40 MG PO DAILY Prescribed by: KEVIN BURCH on 04/26/19 1114 Lisinopril 5 Mg Tablet, 5 MG PO DAILY Prescribed by: KEVIN BURCH on 04/26/19 1114 Metoprolol Tartrate 50 Mg Tablet, 50 MG PO BID Prescribed by: KEVIN BURCH on 04/26/19 1114 Potassium Chloride 20 Meq Tab.er.prt, 40 MEQ PO DAILY@0600 Prescribed by: KEVIN BURCH on 04/26/19 1114 Tamsulosin HCl 0.4 Mg Cap, 0.4 MG PO DAILY, (Reported) Patient Home Medication List Home Medication List Reviewed: Yes Review of Systems Review of Systems Constitutional: no symptoms reported; No diaphoresis, No fever EENTM: no symptoms reported Respiratory: no symptoms reported; No cough, No short of breath Cardiovascular: no symptoms reported; No chest pain, No edema, No palpitations, No syncope Gastrointestinal: no symptoms reported; No abdominal pain, No diarrhea, No loss of appetite, No nausea, No vomiting Genitourinary: no symptoms reported Musculoskeletal: no symptoms reported Skin: no symptoms reported Psychiatric/Neurological: No Symptoms Reported Hematologic/Lymphatic: See HPI Immunological/Allergic: no symptoms reported Past Hxesolz-Yrdfjd-Uzjxpg Hx Patient Social History Alcohol Use: Denies Use Recreational Drug Use: No Smoking Status: Former Smoker (1 PPD, QUIT 03/2019) Type Used: Cigarettes Former Smoker, Quit: Mar 05, 2019 Recent Foreign Travel: No Contact w/Someone Who Travel: No Recent Hopitalizations: No Immunizations Up To Date Tetanus Booster (TDap): Less than 5yrs PED Vaccines UTD: Yes Seasonal Allergies Seasonal Allergies: No Past Medical History Surgeries: Yes (RIGHT BKA 03/2019; PICC LINE IN RIGHT ARM OF 06/30/19) Amputation, Orthopedic, Tonsillectomy Respiratory: Yes (RESPIRATORY FAILURE WITH SIRS AND PNEUMONIA 04/2019; PNEUMONIA 05/2019) Pneumonia Cardiac: Yes (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) Atrial Fibrillation, Hypertension, Peripheral Vascular Neurological: No Genitourinary: Yes (HX OF HEMATURIA; HX OF RENAL FAILURE WITH SIRS/PNEUMONIA 04/2019) Benign Prostatic Hyperpl, Bladder Infection Gastrointestinal: Yes (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) Gall Bladder Disease Musculoskeletal: Yes (RIGHT BKA; GENERALIZED WEAKNESS) Amputee Endocrine: No HEENT: Yes Hearing Impairment: Hard of Hearing, Bilateral Hearing Aide Cancer: Yes (MYELODYSPLASTIC DISORDER WITH LEUKOPENIA, ANEMIA AND THROMBOCYTOSIS) Did You Recieve Any Treatments: Yes (CHEMO AND PLATELETPHERESIS) What Type of Treatment Did You: Chemotherapy Psychosocial: No Integumentary: Yes (LEFT ANKLE /LEFT HEEL WOUND; PYODERMA GANGRENOSUM) Blood Disorders: Yes (refractory anemia /ring sideroblasts W/ thrombocytosis;MYELODYSPLASIA) Adverse Reaction/Blood Tranf: No Family Medical History MYELODYSPLASTIC SYNDROME /MYELOPROLIFERATIVE DISORDER WAS DX 2016 IN [place]. HAD BEEN ON HYDROXYUREA, THIS WAS DC'D AND PT HAS BEEN ON ANAGRELIDE SINCE 03/2019. Physical Exam Vital Signs Vital Signs - First Documented 06/30/19 23:46 Temp 36.4 Pulse 62 Resp 20 B/P (MAP) 181/77 (111) Pulse Ox 98 O2 Delivery Room Air Capillary Refill : Height, Weight, BMI Height: 6'1.00" Weight: 196lbs. oz. 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 II- XII Norm as Tested Skin: Warm/Dry, Pallor; No Rash Progress/Results/Core Measures Suspected Sepsis SIRS Temperature: Pulse: Respiratory Rate: Laboratory Tests 06/30/19 23:50: White Blood Count 5.9 Blood Pressure / Mean: Laboratory Tests 06/30/19 23:50: Creatinine 0.69, INR Comment 1.2, Platelet Count 453H, Total Bilirubin 0.2 Results/Orders Lab Results Laboratory Tests Test 06/30/19 23:50 Range/Units White Blood Count 5.9 4.3-11.0 10^3/uL Red Blood Count 1.88 L 4.35-5.85 10^6/uL Hemoglobin 5.5 *L 13.3-17.7 G/DL Hematocrit 17 *L 40-54 % Mean Corpuscular Volume 91 80-99 FL Mean Corpuscular Hemoglobin 29 25-34 PG Mean Corpuscular Hemoglobin Concent 32 32-36 G/DL Red Cell Distribution Width 15.1 H 10.0-14.5 % Platelet Count 453 H 130-400 10^3/uL Mean Platelet Volume 10.4 7.4-10.4 FL Neutrophils (%) (Auto) 75 42-75 % Lymphocytes (%) (Auto) 13 12-44 % Monocytes (%) (Auto) 11 0-12 % Eosinophils (%) (Auto) 0 0-10 % Basophils (%) (Auto) 1 0-10 % Neutrophils # (Auto) 4.4 1.8-7.8 X 10^3 Lymphocytes # (Auto) 0.8 L 1.0-4.0 X 10^3 Monocytes # (Auto) 0.7 0.0-1.0 X 10^3 Eosinophils # (Auto) 0.0 0.0-0.3 10^3/uL Basophils # (Auto) 0.0 0.0-0.1 10^3/uL Prothrombin Time 16.0 H 12.2-14.7 SEC INR Comment 1.2 0.8-1.4 Activated Partial Thromboplast Time 28 24-35 SEC Sodium Level 143 135-145 MMOL/L Potassium Level 3.8 3.6-5.0 MMOL/L Chloride Level 109 H 98-107 MMOL/L Carbon Dioxide Level 24 21-32 MMOL/L Anion Gap 10 5-14 MMOL/L Blood Urea Nitrogen 22 H 7-18 MG/DL Creatinine 0.69 0.60-1.30 MG/DL Estimat Glomerular Filtration Rate > 60 BUN/Creatinine Ratio 32 Glucose Level 99 70-105 MG/DL Calcium Level 8.4 L 8.5-10.1 MG/DL Corrected Calcium 9.1 8.5-10.1 MG/DL Magnesium Level 1.5 L 1.6-2.4 MG/DL Total Bilirubin 0.2 0.1-1.0 MG/DL Aspartate Amino Transf (AST/SGOT) 11 5-34 U/L Alanine Aminotransferase (ALT/SGPT) 25 0-55 U/L Alkaline Phosphatase 49 40-136 U/L Total Protein 5.4 L 6.4-8.2 GM/DL Albumin 3.1 L 3.2-4.5 GM/DL My Orders Orders - KITTY RILEY DO Ed Iv/Invasive Line Start (06/30/19 23:50) Monitor-Rhythm Ecg Trace Only (06/30/19 23:50) Cbc With Automated Diff (06/30/19 23:50) Comprehensive Metabolic Panel (06/30/19 23:50) Magnesium (06/30/19 23:50) Protime With Inr (06/30/19 23:50) Partial Thromboplastin Time (06/30/19 23:50) Type And Screen (06/30/19 23:50) Red Cells Leukocytes Reduced (07/01/19 00:04) Ns Iv 500 Ml (Sodium Chloride 0.9%) (07/01/19 01:30) Ns Iv 500 Ml (Sodium Chloride 0.9%) (07/01/19 04:12) Medications Given in ED Current Medications Medications Dose Ordered Sig/[place] Route Start Time Stop Time Status Last Admin Dose Admin Sodium Chloride 500 ml @ ud STK-MED ONCE .ROUTE 07/01/19 01:30 07/01/19 01:35 DC 07/01/19 01:45 500 MLS/HR Sodium Chloride 500 ml @ ud STK-MED ONCE .ROUTE 07/01/19 04:12 07/01/19 04:17 DC 1/27/20 01:44 500 MLS/HR Vital Signs/I&O 06/30/19 07/01/19 07/01/19 07/01/19 23:46 01:45 01:45 01:55 Temp 36.4 35.9 35.9 35.9 Pulse 62 61 61 55 Resp 20 18 18 18 B/P (MAP) 181/77 (111) 177/69 174/71 174/71 Pulse Ox 98 99 98 98 O2 Delivery Room Air Room Air Room Air Room Air 07/01/19 07/01/19 02:00 02:30 Temp 35.9 35.9 Pulse 54 54 Resp 18 20 B/P (MAP) 187/74 187/76 Pulse Ox 99 O2 Delivery Room Air Room Air Capillary Refill : Progress Note : Progress Note UNEVENTFUL ER STAY PT RECEIVED 2 UNITS OF BLOOD IN ER. NO ADVERSE REACTION VITALS REMAINED STABLE THROUGHOUT ER STAY 0205--DAUGHTER HAS ARRIVED. UPDATE GIVEN. SHE IS COMFORTABLE TAKING PT BACK TO [facility]. PT IS MORE TALKATIVE AND LESS HOSTILE AFTER DAUGHTER ARRIVES. Departure Communication (Admissions) 2333--CALLED [facility], PT HAS ORDERS TO BE DONE AT THEIR FACILITY. 0014--SPOKE WITH HOSPITALIST, DR. MORA, PT HAS ALREADY BEEN EVALUATED HERE AND BLOOD TRANSFUSION ORDERED FOR HERE IN ER, DO NOT ANTICIPATE THAT PT WILL NEED TRANSFERRED AT THIS TIME Impression Primary Impression: Myelodysplastic syndrome Additional Impressions: Leukopenia Severe anemia Thrombocytosis Disposition: XF SNF Condition: Stable Departure-Patient Inst. Referrals: KEVIN BURCH DO (PCP/Family) Primary Care Physician Patient Instructions: Blood Transfusion , Myelodysplastic Syndromes (MDS) (DC) Add. Discharge Instructions: CONTINUE ALL CURRENT MEDICATIONS FOLLOW UP YOUR DR IN 1-2 DAYS FOR FURTHER CARE All discharge instructions reviewed with patient and/or family. Voiced understanding. KITTY RILEY DO Jul 01, 2019 00:02
[2019-07-01 00:21] LABS: ALANINE AMINOTRANSFERASE 25 U/L (0-55); ALBUMIN 3.1 GM/DL (3.2-4.5); ALKALINE PHOSPHATASE 49 U/L (40-136); BILIRUBIN,TOTAL 0.2 MG/DL (0.1-1.0); BUN/CREATININE RATIO 32; CALCIUM 8.4 MG/DL (8.5-10.1); CARBON DIOXIDE 24 MMOL/L (21-32); CHLORIDE 109 MMOL/L (98-107); CREATININE SERUM 0.69 MG/DL (0.60-1.30); GFR ESTIMATED > 60; GLUCOSE 99 MG/DL (70-105); MAGNESIUM 1.5 MG/DL (1.6-2.4); POTASSIUM 3.8 MMOL/L (3.6-5.0); SODIUM 143 MMOL/L (135-145); TOTAL PROTEIN 5.4 GM/DL (6.4-8.2)
[2019-07-01 00:24] LABS: INR 1.2 (0.8-1.4)
[2019-07-01] MEDS ORDERED: NS IV 500 ML 500 ML ONE ×2 (01:30→04:12)
[2019-07-01 01:45] VITALS: BP_SYST 174; BP_SYST 177; BP_DIAS 69; BP_DIAS 71
[2019-07-01 01:55] VITALS: BP 174/71
[2019-07-01 02:00] VITALS: BP 187/74
[2019-07-01 02:30] VITALS: BP 187/76
--- NOTE | 2019-07-01 04:48 | NUR ---
WHILE DISCONTINUING PT'S BLOOD TRANSFUSION FROM PICC LINE, CLAVE ATTACHED TO THE PICC LINE CAME OFF WITH THE IV TUBING. NEW CLAVE PLACED FROM THIS FACILITY
[2019-07-01 05:20] VITALS: BP 190/80
== END 2019-07-01 05:22 ==
LOC: EDUNIT# 23:46 → ER 23:49
DX: D46.9 Myelodysplastic syndrome, unspecified (principal); D47.3 Essential (hemorrhagic) thrombocythemia; I10 Essential (primary) hypertension; I48.91 Unspecified atrial fibrillation; Z90.89 Acquired absence of other organs; Z89.511 Acquired absence of right leg below knee; Z88.7 Allergy status to serum and vaccine; Z79.82 Long term (current) use of aspirin; Z79.02 Long term (current) use of antithrombotics/antiplatelets; Z87.891 Personal history of nicotine dependence
CPT/HCPCS: 36415; 36430; 80053; 83735; 85025; 85610; 85730; 86850; 86900; 86901; 86920; 93041

== ENCOUNTER 2019-07-11 09:17 | Emergency (ER) | payer MEDICARE, OTHER ==
[~2019-07-11] VITALS: Ht 187 cm; Wt 84.0 kg
[2019-07-11 09:38] LABS: BASOPHILS % (AUTO) 0 % (0-10); EOSINOPHILS % (AUTO) 0 % (0-10); LYMPHOCYTES # (AUTO) 0.3 X 10^3 (1.0-4.0); LYMPHOCYTES % (AUTO) 6 % (12-44); MEAN CORPUSCULAR HEMOGLOBIN 29 PG (25-34); MEAN CORPUSCULAR HGB CONC 32 G/DL (32-36); MEAN CORPUSCULAR VOLUME 92 FL (80-99); MEAN PLATELET VOLUME 10.1 FL (7.4-10.4); MONOCYTES # (AUTO) 0.2 X 10^3 (0.0-1.0); MONOCYTES % (AUTO) 4 % (0-12); NEUTROPHILS # (AUTO) 5.2 X 10^3 (1.8-7.8); NEUTROPHILS % (AUTO) 90 % (42-75); PLATELET COUNT 565 10^3/uL (130-400); RED CELL DISTRIBUTION WIDTH 17.3 % (10.0-14.5); WHITE BLOOD COUNT 5.8 10^3/uL (4.3-11.0)
[2019-07-11 09:49] LABS: HEMATOCRIT 20 % (40-54); HEMOGLOBIN 6.2 G/DL (13.3-17.7)
--- NOTE | 2019-07-11 09:52 | NUR ---
SEE LIST FOR CURRENT MED
[2019-07-11 10:06] LABS: ALANINE AMINOTRANSFERASE 44 U/L (0-55); ALBUMIN 3.5 GM/DL (3.2-4.5); ALKALINE PHOSPHATASE 45 U/L (40-136); BILIRUBIN,TOTAL 0.3 MG/DL (0.1-1.0); BUN/CREATININE RATIO 37; CALCIUM 8.4 MG/DL (8.5-10.1); CARBON DIOXIDE 26 MMOL/L (21-32); CHLORIDE 108 MMOL/L (98-107); CREATININE SERUM 0.78 MG/DL (0.60-1.30); GFR ESTIMATED > 60; GLUCOSE 157 MG/DL (70-105); MAGNESIUM 2.1 MG/DL (1.6-2.4); POTASSIUM 3.9 MMOL/L (3.6-5.0); SODIUM 140 MMOL/L (135-145); TOTAL PROTEIN 5.7 GM/DL (6.4-8.2)
[2019-07-11 10:16] LABS: BAND NEUTROPHILS 27 %; LYMPHOCYTES % (MANUAL) 5 %; MONOCYTES % (MANUAL) 7 %; NEUTROPHILS % (MANUAL) 58 %
[2019-07-11 10:18] LABS: ANISOCYTOSIS MARKED; BASOPHILS % (MANUAL) 0 %; EOSINOPHILS % (MANUAL) 1 %; METAMYELOCYTES % 1 %; MYELOCYTES % 1 %
--- NOTE | 2019-07-11 10:57 | ED Syncope ---
General Chief Complaint: Dizziness/Syncope Stated Complaint: SYNCOPE Nursing Triage Note: PT ARRIVED PER EMS, PT HAD SYNCOPAL EPISODE THIS AM AT [facility] 0740. PT SCHEDULED FOR TRANSFUSION THIS AM. PT HAS PICC LINE IN PLACE IN R UPPER ARM. PT IS ALERT AND ORIENTED AT THIS X Source of Information: Patient Exam Limitations: No Limitations History of Present Illness Date Seen by Provider: Jul 11, 2019 Time Seen by Provider: 09:18 Initial Comments This 73-year-old gentleman with myelodysplastic syndrome presents to the emergency room with a syncopal episode. He has been having some lightheadedness as well. He has history of severe anemia associated with his MDS and he is scheduled to have a transfusion today. He denies any other symptoms such as shortness of breath or chest pain. He does report a history of paroxysmal atrial fibrillation. He thought he had some atrial fibrillation earlier in the morning. He is in sinus rhythm now. Patient denies any recent active bleeding. Allergies and Home Medications Allergies Coded Allergies: Tetanus Vaccines and Toxoid (Verified Allergy, Unknown, 11/17/18) Home Medications Acetaminophen 325 Mg Tablet, 325-650 MG PO Q4H PRN for PAIN-MILD OR TEMPATURE, (Reported) Aspirin 81 Mg Tab.chew, 81 MG PO DAILY Prescribed by: KEVIN BURCH on 04/26/19 111 Clopidogrel Bisulfate 75 Mg Tablet, 75 MG PO DAILY Prescribed by: KEVIN BURCH on 04/26/19 111 Diltiazem HCl 240 Mg Cap.er.24h, 240 MG PO DAILY, (Reported) Finasteride 5 Mg Tablet, 5 MG PO DAILY, (Reported) Furosemide 40 Mg Tablet, 40 MG PO DAILY Prescribed by: KEVIN BURCH on 04/26/19 111 Lisinopril 5 Mg Tablet, 5 MG PO DAILY Prescribed by: KEVIN BURCH on 04/26/19 111 Metoprolol Tartrate 50 Mg Tablet, 50 MG PO BID Prescribed by: KEVIN BURCH on 04/26/19 111 Potassium Chloride 20 Meq Tab.er.prt, 40 MEQ PO DAILY@0600 Prescribed by: KEVIN BURCH on 04/26/19 111 Tamsulosin HCl 0.4 Mg Cap, 0.4 MG PO DAILY, (Reported) Patient Home Medication List Home Medication List Reviewed: Yes Review of Systems Constitutional: no symptoms reported EENTM: no symptoms reported Respiratory: no symptoms reported Cardiovascular: see HPI Gastrointestinal: no symptoms reported Genitourinary: no symptoms reported Musculoskeletal: no symptoms reported Skin: no symptoms reported Psychiatric/Neurological: No Symptoms Reported Past Nlprhyh-Oxmmkh-Mafihu Hx Past Med/Social Hx: Reviewed Nursing Past Med/Soc Hx Patient Social History Alcohol Use: Denies Use Recreational Drug Use: No Smoking Status: Current Everyday Smoker Type Used: Cigarettes Former Smoker, Quit: Mar 05, 2019 Recent Foreign Travel: No Contact w/Someone Who Travel: No Recent Infectious Disease Expo: No Recent Hopitalizations: No Physical Abuse: No Sexual Abuse: No Immunizations Up To Date Tetanus Booster (TDap): Less than 5yrs PED Vaccines UTD: Yes Seasonal Allergies Seasonal Allergies: No Past Medical History Surgeries: Yes (RIGHT BKA 03/2019; PICC LINE IN RIGHT ARM OF 06/30/19) Amputation, Orthopedic, Tonsillectomy Respiratory: Yes (RESPIRATORY FAILURE WITH SIRS AND PNEUMONIA 04/2019; PNEUMONIA 05/2019) Pneumonia Cardiac: Yes (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) Atrial Fibrillation, Hypertension, Peripheral Vascular Neurological: No Genitourinary: Yes (HX OF HEMATURIA; HX OF RENAL FAILURE WITH SIRS/PNEUMONIA 04/2019) Benign Prostatic Hyperpl, Bladder Infection Gastrointestinal: Yes (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) Gall Bladder Disease Musculoskeletal: Yes (RIGHT BKA; GENERALIZED WEAKNESS) Amputee Endocrine: No HEENT: Yes Hearing Impairment: Hard of Hearing, Bilateral Hearing Aide Cancer: Yes (MYELODYSPLASTIC DISORDER WITH LEUKOPENIA, ANEMIA AND THROMBOCYTOSIS) Did You Recieve Any Treatments: Yes What Type of Treatment Did You: Chemotherapy Psychosocial: No Integumentary: Yes (LEFT ANKLE /LEFT HEEL WOUND; PYODERMA GANGRENOSUM) Blood Disorders: Yes (refractory anemia /ring sideroblasts W/ thrombocytosis;MYELODYSPLASIA) Adverse Reaction/Blood Tranf: No Family Medical History MYELODYSPLASTIC SYNDROME /MYELOPROLIFERATIVE DISORDER WAS DX 2016 IN [place]. HAD BEEN ON HYDROXYUREA, THIS WAS DC'D AND PT HAS BEEN ON ANAGRELIDE SINCE 03/2019. Physical Exam Vital Signs Vital Signs - First Documented 07/11/19 09:20 Temp 35.9 Pulse 71 Resp 13 B/P (MAP) 133/53 (79) Pulse Ox 96 Capillary Refill : Less Than 3 Seconds Height, Weight, BMI Height: 6'1.00" Weight: 196lbs. oz. 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 Norm as Tested Cranial Nerves: Normal Hearing, Normal Speech Motor/Sensory: No Motor Deficit, No Sensory Deficit Skin: Normal Color, Warm/Dry Progress/Results/Core Measures Results/Orders Lab Results Laboratory Tests Test 07/11/19 09:25 Range/Units White Blood Count 5.8 4.3-11.0 10^3/uL Red Blood Count 2.14 L 4.35-5.85 10^6/uL Hemoglobin 6.2 *L 13.3-17.7 G/DL Hematocrit 20 *L 40-54 % Mean Corpuscular Volume 92 80-99 FL Mean Corpuscular Hemoglobin 29 25-34 PG Mean Corpuscular Hemoglobin Concent 32 32-36 G/DL Red Cell Distribution Width 17.3 H 10.0-14.5 % Platelet Count 565 H 130-400 10^3/uL Mean Platelet Volume 10.1 7.4-10.4 FL Neutrophils (%) (Auto) 90 H 42-75 % Lymphocytes (%) (Auto) 6 L 12-44 % Monocytes (%) (Auto) 4 0-12 % Eosinophils (%) (Auto) 0 0-10 % Basophils (%) (Auto) 0 0-10 % Neutrophils # (Auto) 5.2 1.8-7.8 X 10^3 Lymphocytes # (Auto) 0.3 L 1.0-4.0 X 10^3 Monocytes # (Auto) 0.2 0.0-1.0 X 10^3 Eosinophils # (Auto) 0.0 0.0-0.3 10^3/uL Basophils # (Auto) 0.0 0.0-0.1 10^3/uL Neutrophils % (Manual) 58 % Lymphocytes % (Manual) 5 % Monocytes % (Manual) 7 % Eosinophils % (Manual) 1 % Basophils % (Manual) 0 % Metamyelocytes % 1 % Myelocytes % 1 % Band Neutrophils 27 % Anisocytosis MARKED Sodium Level 140 135-145 MMOL/L Potassium Level 3.9 3.6-5.0 MMOL/L Chloride Level 108 H 98-107 MMOL/L Carbon Dioxide Level 26 21-32 MMOL/L Anion Gap 6 5-14 MMOL/L Blood Urea Nitrogen 29 H 7-18 MG/DL Creatinine 0.78 0.60-1.30 MG/DL Estimat Glomerular Filtration Rate > 60 BUN/Creatinine Ratio 37 Glucose Level 157 H 70-105 MG/DL Calcium Level 8.4 L 8.5-10.1 MG/DL Corrected Calcium 8.8 8.5-10.1 MG/DL Magnesium Level 2.1 1.6-2.4 MG/DL Total Bilirubin 0.3 0.1-1.0 MG/DL Aspartate Amino Transf (AST/SGOT) 22 5-34 U/L Alanine Aminotransferase (ALT/SGPT) 44 0-55 U/L Alkaline Phosphatase 45 40-136 U/L Total Protein 5.7 L 6.4-8.2 GM/DL Albumin 3.5 3.2-4.5 GM/DL My Orders Orders - GLORIA WISE MD Cbc With Automated Diff (07/11/19 09:25) Comprehensive Metabolic Panel (07/11/19 09:25) Magnesium (07/11/19 09:25) Ed Iv/Invasive Line Start (07/11/19:25) Ekg Tracing (07/11/19 09:25) Monitor-Rhythm Ecg Trace Only (07/11/19 09:25) Manual Differential (07/11/19 09:25) Ns Iv 500 Ml (Sodium Chloride 0.9%) (07/11/19 11:25) Vital Signs/I&O 07/11/19 07/11/19:20 11:08 Temp 35.9 Pulse 71 70 Resp 13 13 B/P (MAP) 133/53 (79) 133/48 (79) Pulse Ox 96 96 Blood Pressure Mean: 79 Progress Progress Note : Progress Note Hemoglobin was found to be 6.2. 2 units of blood were ordered for transfusion. Case was discussed with Dr. Morin. Patient was dismissed to a transfusion room to complete transfusions. Initial ECG Impression Date: Jul 11, 2019 Initial ECG Impression Time: 09:32 Initial ECG Rate: 70 Initial ECG Rhythm: Normal Sinus Initial ECG Intervals: Normal Initial ECG Impression: Normal Comment Normal sinus rhythm with no ST elevation or depression. No abnormal intervals or axis deviation. Departure Impression Primary Impression: Severe anemia Additional Impressions: Myelodysplastic disease Syncope Qualified Codes: R55 - Syncope and collapse Disposition: 01 HOME, SELF-CARE Condition: Stable Departure-Patient Inst. Decision time for Depature: 11:00 Referrals: KEVIN BURCH DO (PCP/Family) Primary Care Physician Patient Instructions: Myelodysplastic Syndromes (MDS) Add. Discharge Instructions: Go to the transfusion room at the hospital for completion of a transfusion of 2 units of red blood cells. Follow-up with the Cancer Center and your pro shop attendant as soon as possible. Return to care if you have worsening symptoms. All discharge instructions reviewed with patient and/or family. Voiced understanding. Copy Copies To 1: ESHA MORIN Copies To 2: KEVIN BURCH JOSHUA T MD Jul 11, 2019 10:57
[2019-07-11 11:08] VITALS: BP 133/48
[2019-07-11] MEDS ORDERED: NS IV 500 ML 500 ML ONE (11:25)
== END 2019-07-11 11:08 | disposition home or self-care (01) ==
LOC: EDUNIT# 09:17 → ER 09:17
DX: D64.9 Anemia, unspecified (principal); C94.6 Myelodysplastic disease, not elsewhere classified; R55 Syncope and collapse; I10 Essential (primary) hypertension; I48.91 Unspecified atrial fibrillation; I73.9 Peripheral vascular disease, unspecified; F17.210 Nicotine dependence, cigarettes, uncomplicated; Z89.511 Acquired absence of right leg below knee; Z88.7 Allergy status to serum and vaccine; Z79.82 Long term (current) use of aspirin; Z79.02 Long term (current) use of antithrombotics/antiplatelets; Z90.89 Acquired absence of other organs
CPT/HCPCS: 36415; 80053; 83735; 85007; 85027; 93005; 93041

== ENCOUNTER 2019-07-11 11:18 | Outpatient (CLI) | payer MEDICARE, OTHER ==
[~2019-07-11] VITALS: Ht 188 cm; Wt 84.0 kg
[2019-07-11] MEDS ORDERED: NS IV 500 ML 500 ML IV SCH ×2 (13:45→16:30)
[2019-07-11 15:36] LABS: HEMOGLOBIN 8.5 G/DL (13.3-17.7)
[2019-07-11 15:45] VITALS: BP 111/99
--- NOTE | 2019-07-11 15:50 | NUR ---
blood administration charted under TAR on account [id number]. Pt presented w/ cancer center blood bank band on, as blood was crossmatched per that account.
--- NOTE | 2019-07-11 17:40 | NUR ---
PT TRANSFUSION COMPLETE. PT TOLERATED WELL. POST BLOOD TRANSFUSION HOME CARE INSTRUCTIONS. TO DC WITH VIA W/C.
[2019-07-11 17:45] LABS: HEMOGLOBIN 8.1 G/DL (13.3-17.7)
== END 2019-07-11 17:40 | disposition home or self-care (01) ==
LOC: SDC 11:18
PROVIDERS: ATTEND Family Medicine
DX: D46.9 Myelodysplastic syndrome, unspecified (principal); D64.9 Anemia, unspecified; R55 Syncope and collapse
CPT/HCPCS: 36415; 36430; 85014; 85018

== ENCOUNTER 2019-10-01 10:29 | Outpatient (RCR) | payer MEDICARE, OTHER ==
[2019-07-16 15:37] LABS: BASOPHILS % (AUTO) 0 % (0-10); EOSINOPHILS % (AUTO) 0 % (0-10); HEMATOCRIT 23 % (40-54); HEMOGLOBIN 7.4 G/DL (13.3-17.7); LYMPHOCYTES # (AUTO) 0.3 X 10^3 (1.0-4.0); LYMPHOCYTES % (AUTO) 3 % (12-44); MEAN CORPUSCULAR HEMOGLOBIN 29 PG (25-34); MEAN CORPUSCULAR HGB CONC 32 G/DL (32-36); MEAN CORPUSCULAR VOLUME 92 FL (80-99); MEAN PLATELET VOLUME 10.2 FL (7.4-10.4); MONOCYTES # (AUTO) 0.1 X 10^3 (0.0-1.0); MONOCYTES % (AUTO) 2 % (0-12); NEUTROPHILS # (AUTO) 7.2 X 10^3 (1.8-7.8); NEUTROPHILS % (AUTO) 95 % (42-75); PLATELET COUNT 663 10^3/uL (130-400); RED CELL DISTRIBUTION WIDTH 17.6 % (10.0-14.5); WHITE BLOOD COUNT 7.6 10^3/uL (4.3-11.0)
[2019-07-29 15:31] LABS: BASOPHILS % (AUTO) 0 % (0-10); EOSINOPHILS % (AUTO) 0 % (0-10); HEMATOCRIT 21 % (40-54); LYMPHOCYTES # (AUTO) 0.7 X 10^3 (1.0-4.0); LYMPHOCYTES % (AUTO) 4 % (12-44); MEAN CORPUSCULAR HEMOGLOBIN 29 PG (25-34); MEAN CORPUSCULAR HGB CONC 32 G/DL (32-36); MEAN CORPUSCULAR VOLUME 93 FL (80-99); MEAN PLATELET VOLUME 10.5 FL (7.4-10.4); MONOCYTES # (AUTO) 0.4 X 10^3 (0.0-1.0); MONOCYTES % (AUTO) 3 % (0-12); NEUTROPHILS # (AUTO) 13.8 X 10^3 (1.8-7.8); NEUTROPHILS % (AUTO) 92 % (42-75); PLATELET COUNT 859 10^3/uL (130-400); RED CELL DISTRIBUTION WIDTH 17.6 % (10.0-14.5); WHITE BLOOD COUNT 14.9 10^3/uL (4.3-11.0)
[2019-07-29 15:33] LABS: HEMOGLOBIN 6.6 G/DL (13.3-17.7)
[2019-07-29 15:49] LABS: ALANINE AMINOTRANSFERASE 31 U/L (0-55); ALBUMIN 3.8 GM/DL (3.2-4.5); ALKALINE PHOSPHATASE 66 U/L (40-136); BILIRUBIN,TOTAL 0.2 MG/DL (0.1-1.0); BUN/CREATININE RATIO 38; CALCIUM 8.9 MG/DL (8.5-10.1); CARBON DIOXIDE 23 MMOL/L (21-32); CHLORIDE 108 MMOL/L (98-107); CREATININE SERUM 0.86 MG/DL (0.60-1.30); GFR ESTIMATED > 60; GLUCOSE 182 MG/DL (70-105); POTASSIUM 4.5 MMOL/L (3.6-5.0); SODIUM 141 MMOL/L (135-145); TOTAL PROTEIN 6.3 GM/DL (6.4-8.2)
[2019-08-21 09:15] LABS: BASOPHILS # (AUTO) 0.1 10^3/uL (0.0-0.1); BASOPHILS % (AUTO) 1 % (0-10); EOSINOPHILS # (AUTO) 0.2 10^3/uL (0.0-0.3); EOSINOPHILS % (AUTO) 1 % (0-10); HEMATOCRIT 23 % (40-54); LYMPHOCYTES % (AUTO) 10 % (12-44); MEAN CORPUSCULAR HEMOGLOBIN 29 PG (25-34); MEAN CORPUSCULAR HGB CONC 31 G/DL (32-36); MEAN CORPUSCULAR VOLUME 95 FL (80-99); MONOCYTES # (AUTO) 1.2 X 10^3 (0.0-1.0); MONOCYTES % (AUTO) 6 % (0-12); NEUTROPHILS # (AUTO) 15.9 X 10^3 (1.8-7.8); NEUTROPHILS % (AUTO) 82 % (42-75); PLATELET COUNT 805 10^3/uL (130-400); RED CELL DISTRIBUTION WIDTH 19.7 % (10.0-14.5); WHITE BLOOD COUNT 19.4 10^3/uL (4.3-11.0)
[2019-08-21 09:37] LABS: ALANINE AMINOTRANSFERASE 27 U/L (0-55); ALKALINE PHOSPHATASE 44 U/L (40-136); BILIRUBIN,TOTAL 0.4 MG/DL (0.1-1.0); BUN/CREATININE RATIO 23; CALCIUM 9.3 MG/DL (8.5-10.1); CARBON DIOXIDE 27 MMOL/L (21-32); CHLORIDE 105 MMOL/L (98-107); CREATININE SERUM 0.97 MG/DL (0.60-1.30); GFR ESTIMATED > 60; GLUCOSE 124 MG/DL (70-105); POTASSIUM 3.9 MMOL/L (3.6-5.0); SODIUM 141 MMOL/L (135-145); TOTAL PROTEIN 6.8 GM/DL (6.4-8.2)
[2019-09-19 09:11] LABS: BASOPHILS # (AUTO) 0.1 10^3/uL (0.0-0.1); BASOPHILS % (AUTO) 1 % (0-10); EOSINOPHILS # (AUTO) 0.2 10^3/uL (0.0-0.3); EOSINOPHILS % (AUTO) 1 % (0-10); HEMATOCRIT 26 % (40-54); LYMPHOCYTES # (AUTO) 1.3 X 10^3 (1.0-4.0); LYMPHOCYTES % (AUTO) 9 % (12-44); MEAN CORPUSCULAR HEMOGLOBIN 29 PG (25-34); MEAN CORPUSCULAR HGB CONC 31 G/DL (32-36); MEAN CORPUSCULAR VOLUME 96 FL (80-99); MEAN PLATELET VOLUME 10.6 FL (7.4-10.4); MONOCYTES # (AUTO) 0.9 X 10^3 (0.0-1.0); MONOCYTES % (AUTO) 6 % (0-12); NEUTROPHILS # (AUTO) 12.3 X 10^3 (1.8-7.8); NEUTROPHILS % (AUTO) 83 % (42-75); RED CELL DISTRIBUTION WIDTH 22.2 % (10.0-14.5); WHITE BLOOD COUNT 14.8 10^3/uL (4.3-11.0)
[2019-09-19 09:13] LABS: PLATELET COUNT 1208 10^3/uL (130-400)
[~2019-10-01 10:29] MED LIST changes: +ACETAMINOPHEN 500 MG TAB (TYLENOL) CANCER CTR ONE; +NS (IVPB) CANCER CENTER 250 ML ONE; +NS IV 500 ML (CANCER CENTER) 500 ML ONE
[2019-10-01 10:52] LABS: BASOPHILS # (AUTO) 0.1 10^3/uL (0.0-0.1); BASOPHILS % (AUTO) 1 % (0-10); EOSINOPHILS # (AUTO) 0.7 10^3/uL (0.0-0.3); EOSINOPHILS % (AUTO) 6 % (0-10); LYMPHOCYTES # (AUTO) 1.2 X 10^3 (1.0-4.0); LYMPHOCYTES % (AUTO) 10 % (12-44); MEAN CORPUSCULAR HEMOGLOBIN 30 PG (25-34); MEAN CORPUSCULAR HGB CONC 31 G/DL (32-36); MEAN CORPUSCULAR VOLUME 94 FL (80-99); MEAN PLATELET VOLUME 10.6 FL (7.4-10.4); MONOCYTES # (AUTO) 2.2 X 10^3 (0.0-1.0); MONOCYTES % (AUTO) 18 % (0-12); NEUTROPHILS # (AUTO) 7.7 X 10^3 (1.8-7.8); NEUTROPHILS % (AUTO) 65 % (42-75); RED CELL DISTRIBUTION WIDTH 22.5 % (10.0-14.5); WHITE BLOOD COUNT 11.8 10^3/uL (4.3-11.0)
[2019-10-01 10:55] LABS: HEMATOCRIT 20 % (40-54); HEMOGLOBIN 6.3 G/DL (13.3-17.7)
[2019-10-01 10:56] LABS: PLATELET COUNT 1030 10^3/uL (130-400)
[2019-10-01] MEDS ORDERED: NS IV 500 ML (CANCER CENTER) 500 ML ONE (11:18)
[2019-10-01 11:19] LABS: ALANINE AMINOTRANSFERASE 19 U/L (0-55); ALBUMIN 3.4 GM/DL (3.2-4.5); ALKALINE PHOSPHATASE 47 U/L (40-136); BILIRUBIN,TOTAL 0.3 MG/DL (0.1-1.0); BUN/CREATININE RATIO 17; CALCIUM 8.7 MG/DL (8.5-10.1); CARBON DIOXIDE 23 MMOL/L (21-32); CHLORIDE 109 MMOL/L (98-107); CREATININE SERUM 1.03 MG/DL (0.60-1.30); GFR ESTIMATED > 60; GLUCOSE 88 MG/DL (70-105); POTASSIUM 3.8 MMOL/L (3.6-5.0); SODIUM 141 MMOL/L (135-145); TOTAL PROTEIN 6.6 GM/DL (6.4-8.2)
== END 2019-10-06 | disposition home or self-care (01) ==
LOC: ONC 10:29
PROVIDERS: ATTEND Internal Medicine Hematology & Oncology
DX: C94.6 Myelodysplastic disease, not elsewhere classified (principal); D47.3 Essential (hemorrhagic) thrombocythemia; D64.9 Anemia, unspecified; Z89.511 Acquired absence of right leg below knee
CPT/HCPCS: 36415; 36430; 36591; 80053; 83615; 85025; 86850; 86900; 86901; 86920; 99213

== ENCOUNTER → 2019-10-08 | Outpatient (CLI) | payer MEDICARE, OTHER ==
[~2019-10-08] MED LIST changes: -ACETAMINOPHEN 500 MG TAB (TYLENOL) CANCER CTR ONE; -NS (IVPB) CANCER CENTER 250 ML ONE; -NS IV 500 ML (CANCER CENTER) 500 ML ONE
--- NOTE | 2019-10-08 11:53 | Diagnostic Imaging Report ---
PROCEDURE: US right lower extremity venous. TECHNIQUE: Multiple real-time grayscale images were obtained over the right lower extremity in various projections. Additional spectral analysis and color Doppler duplex images were also obtained. INDICATION: Leg pain and swelling. COMPARISON: There are no prior ultrasound examinations available for comparison. FINDINGS: By history, the patient has had a [id number] amputation. There is generally good blood flow and compressibility in the common femoral superficial femoral, popliteal and right peroneal veins. There is no evidence for deep venous thrombosis. There does appear to be soft tissue edema about the amputation site. IMPRESSION: There is no evidence for deep venous thrombosis. Dictated by: Dictated on workstation # [id number]
== END ==
LOC: RAD 10:38
PROVIDERS: ATTEND Nurse Practitioner Family
DX: M79.89 Other specified soft tissue disorders (principal)

== ENCOUNTER 2019-12-23 08:22 | Outpatient (RCR) | payer MEDICARE, OTHER | END 2020-03-22 | disposition home or self-care (01) | LOC: CARD 08:22 | PROVIDERS: ATTEND Internal Medicine Cardiovascular Disease | DX: I48.91 Unspecified atrial fibrillation (principal); I25.10 Atherosclerotic heart disease of native coronary artery without angina pectoris; I10 Essential (primary) hypertension; E78.2 Mixed hyperlipidemia ==

== ENCOUNTER → 2020-01-15 | Outpatient (RCR) | payer MEDICARE, OTHER ==
[2019-12-16 12:20] LABS: ALANINE AMINOTRANSFERASE 22 U/L (0-55); ALBUMIN 3.8 GM/DL (3.2-4.5); ALKALINE PHOSPHATASE 90 U/L (40-136); BILIRUBIN,TOTAL 0.2 MG/DL (0.1-1.0); BUN/CREATININE RATIO 30; CALCIUM 8.8 MG/DL (8.5-10.1); CARBON DIOXIDE 22 MMOL/L (21-32); CHLORIDE 111 MMOL/L (98-107); GFR ESTIMATED > 60; GLUCOSE 111 MG/DL (70-105); POTASSIUM 4.1 MMOL/L (3.6-5.0); SODIUM 141 MMOL/L (135-145); TOTAL PROTEIN 7.2 GM/DL (6.4-8.2)
[~2020-01-15] MED LIST changes: +ATROPINE INJ 0.4 MG/ML SDV (CANCER CENTER) IV SCH; +BORTEZOMIB 3.5 MG VELCADE IV SCH; +DARBEPOETIN 10 MCG/0.4 ML ARANESP IJ SCH; +LUSPATERCEPT AAMT SQ SCH; +NS (IVPB) CANCER CENTER 250 ML ONE; +NS IV 500 ML (CANCER CENTER) 500 ML ONE; +PEGFILGRASTIM 6 MG/0.6ML NEULASTA SC SCH
[2020-01-15 11:06] LABS: ABSOLUTE RETIC # 15 10e9/L (24-90); BASOPHILS % (AUTO) 0 % (0-10); EOSINOPHILS # (AUTO) 0.3 10^3/uL (0.0-0.3); EOSINOPHILS % (AUTO) 4 % (0-10); HEMATOCRIT 23 % (40-54); HEMOGLOBIN 7.7 G/DL (13.3-17.7); LYMPHOCYTES % (AUTO) 13 % (12-44); MEAN CORPUSCULAR HEMOGLOBIN 30 PG (25-34); MEAN CORPUSCULAR HGB CONC 33 G/DL (32-36); MEAN CORPUSCULAR VOLUME 89 FL (80-99); MEAN PLATELET VOLUME 10.6 FL (7.4-10.4); MONOCYTES # (AUTO) 0.4 X 10^3 (0.0-1.0); MONOCYTES % (AUTO) 5 % (0-12); NEUTROPHILS # (AUTO) 5.8 X 10^3 (1.8-7.8); NEUTROPHILS % (AUTO) 78 % (42-75); PLATELET COUNT 350 10^3/uL (130-400); RED CELL DISTRIBUTION WIDTH 17.3 % (10.0-14.5); RETICULOCYTE % 0.58 % (0.50-2.40); WHITE BLOOD COUNT 7.4 10^3/uL (4.3-11.0)
[2020-01-15 11:32] LABS: ALANINE AMINOTRANSFERASE 22 U/L (0-55); ALBUMIN 3.7 GM/DL (3.2-4.5); ALKALINE PHOSPHATASE 66 U/L (40-136); BILIRUBIN,TOTAL 0.6 MG/DL (0.1-1.0); BUN/CREATININE RATIO 25; CALCIUM 8.9 MG/DL (8.5-10.1); CARBON DIOXIDE 22 MMOL/L (21-32); CHLORIDE 109 MMOL/L (98-107); GFR ESTIMATED > 60; GLUCOSE 141 MG/DL (70-105); POTASSIUM 4.2 MMOL/L (3.6-5.0); SODIUM 141 MMOL/L (135-145); TOTAL PROTEIN 7.1 GM/DL (6.4-8.2)
== END | disposition home or self-care (01) ==
LOC: ONC 10-17 13:08
PROVIDERS: ATTEND Internal Medicine Hematology & Oncology
DX: D47.3 Essential (hemorrhagic) thrombocythemia (principal); C94.6 Myelodysplastic disease, not elsewhere classified; D64.9 Anemia, unspecified; Z89.511 Acquired absence of right leg below knee
CPT/HCPCS: 36430; 86850; 86900; 86901; 86920; P9016; 36415; 80053; 83615; 85025; 85045; 96372; 99213

== ENCOUNTER 2020-03-24 14:00 | Emergency (ER) | payer MEDICARE, OTHER ==
[~2020-03-24] VITALS: Ht 187 cm; Wt 80.0 kg
[2020-03-24 14:00] VITALS: BP 167/91
[~2020-03-24 14:00] MED LIST changes: -ATROPINE INJ 0.4 MG/ML SDV (CANCER CENTER) IV SCH; -BORTEZOMIB 3.5 MG VELCADE IV SCH; -DARBEPOETIN 10 MCG/0.4 ML ARANESP IJ SCH; -LUSPATERCEPT AAMT SQ SCH; -NS (IVPB) CANCER CENTER 250 ML ONE; -NS IV 500 ML (CANCER CENTER) 500 ML ONE; -PEGFILGRASTIM 6 MG/0.6ML NEULASTA SC SCH
--- NOTE | 2020-03-24 14:14 | ED General ---
General Chief Complaint: General Problems/Pain Stated Complaint: WEAKNESS Source of Information: Patient Exam Limitations: No Limitations History of Present Illness Date Seen by Provider: Mar 24, 2020 Time Seen by Provider: 14:09 Initial Comments Patient is a 74-year-old male who presents to the emergency room today with a chief complaint of generalized malaise. He decided to stay in bed all day today because he did not have anything to do however his became concerned and wanted him evaluated in the emergency department. The patient has a history per review of the medical record of myelodysplastic syndrome with refractory anemia. He gets blood transfusions weekly. His last transfusion was yesterday he states he received 1 unit of blood. Patient also history has a history of peripheral vascular disease and remote atrial fibrillation. He denies any specific complaints of chest pain, shortness of breath, abdominal pain. He is currently in normal sinus rhythm. He does endorse some nasal congestion but denies cough, fever. No complaints of pain. All other review of systems reviewed and negative except as stated above. Timing/Duration: 1 Day Associated Systoms: Denies Symptoms Allergies and Home Medications Allergies Coded Allergies: Tetanus Vaccines and Toxoid (Verified Allergy, Unknown, 11/17/18) Home Medications Acetaminophen 325 Mg Tablet, 325-650 MG PO Q4H PRN for PAIN-MILD OR TEMPATURE, (Reported) Aspirin 81 Mg Tab.chew, 81 MG PO DAILY Prescribed by: KEVIN BURCH on 04/26/19 111 Clopidogrel Bisulfate 75 Mg Tablet, 75 MG PO DAILY Prescribed by: KEVIN BURCH on 04/26/19 111 Diltiazem HCl 240 Mg Cap.er.24h, 240 MG PO DAILY, (Reported) Finasteride 5 Mg Tablet, 5 MG PO DAILY, (Reported) Furosemide 40 Mg Tablet, 40 MG PO DAILY Prescribed by: KEVIN BURCH on 04/26/19 111 Lisinopril 5 Mg Tablet, 5 MG PO DAILY Prescribed by: KEVIN BURCH on 04/26/19 111 Metoprolol Tartrate 50 Mg Tablet, 50 MG PO BID Prescribed by: KEVIN BURCH on 04/26/19 111 Potassium Chloride 20 Meq Tab.er.prt, 40 MEQ PO DAILY@0600 Prescribed by: KEVIN BURCH on 04/26/19 1114 Tamsulosin HCl 0.4 Mg Cap, 0.4 MG PO DAILY, (Reported) Patient Home Medication List Home Medication List Reviewed: Yes Review of Systems Review of Systems Constitutional: malaise, weakness EENTM: nose congestion Respiratory: no symptoms reported Cardiovascular: no symptoms reported Gastrointestinal: constipation Genitourinary: no symptoms reported Musculoskeletal: no symptoms reported Skin: no symptoms reported All Other Systems Reviewed Negative Unless Noted: Yes Past Effnwgn-Sepdkh-Ycolin Hx Patient Social History Type Used: Cigarettes Former Smoker, Quit: Mar 05, 2019 Recent Foreign Travel: No Contact w/Someone Who Travel: No Recent Hopitalizations: No Immunizations Up To Date Tetanus Booster (TDap): Less than 5yrs PED Vaccines UTD: Yes Seasonal Allergies Seasonal Allergies: No Past Medical History Surgeries: Yes (RIGHT BKA 03/2019; PICC LINE IN RIGHT ARM OF 06/30/19) Amputation, Orthopedic, Tonsillectomy Respiratory: Yes (RESPIRATORY FAILURE WITH SIRS AND PNEUMONIA 04/2019; PNEUMONIA 05/2019) Pneumonia Cardiac: Yes (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) Atrial Fibrillation, Hypertension, Peripheral Vascular Neurological: No Genitourinary: Yes (HX OF HEMATURIA; HX OF RENAL FAILURE WITH SIRS/PNEUMONIA 04/2019) Benign Prostatic Hyperpl, Bladder Infection Gastrointestinal: Yes (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) Gall Bladder Disease Musculoskeletal: Yes (RIGHT BKA; GENERALIZED WEAKNESS) Amputee Endocrine: No HEENT: Yes Hearing Impairment: Hard of Hearing, Bilateral Hearing Aide Cancer: Yes (MYELODYSPLASTIC DISORDER WITH LEUKOPENIA, ANEMIA AND THROMBOCY TOSIS) Did You Recieve Any Treatments: Yes What Type of Treatment Did You: Chemotherapy Psychosocial: No Integumentary: Yes (LEFT ANKLE /LEFT HEEL WOUND; PYODERMA GANGRENOSUM) Blood Disorders: Yes (refractory anemia /ring sideroblasts W/ thrombocytosis;MYELODYSPLASIA) Adverse Reaction/Blood Tranf: No Family Medical History MYELODYSPLASTIC SYNDROME /MYELOPROLIFERATIVE DISORDER WAS DX 2016 IN [place]. HAD BEEN ON HYDROXYUREA, THIS WAS DC'D AND PT HAS BEEN ON ANAGRELIDE SINCE 03/2019. Physical Exam Vital Signs Vital Signs - First Documented 03/24/20 14:00 Temp 36.0 Pulse 79 Resp 20 B/P (MAP) 167/91 (116) Pulse Ox 96 O2 Delivery Room Air Capillary Refill : 2 Height, Weight, BMI Height: 6'1.00" Weight: 196lbs. oz. 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, 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 Norm as Tested Skin: Warm/Dry, Pallor Progress/Results/Core Measures Suspected Sepsis SIRS Temperature: Pulse: Respiratory Rate: Laboratory Tests 03/24/20 14:24: White Blood Count 2.8L Blood Pressure / Mean: Laboratory Tests 03/24/20 14:24: Platelet Count 326 Results/Orders Lab Results Laboratory Tests Test 03/24/20 14:24 Range/Units White Blood Count 2.8 L 4.3-11.0 10^3/uL Red Blood Count 2.61 L 4.30-5.52 10^6/uL Hemoglobin 7.8 L 13.3-17.7 g/dL Hematocrit 23 L 40-54 % Mean Corpuscular Volume 89 80-99 fL Mean Corpuscular Hemoglobin 30 25-34 pg Mean Corpuscular Hemoglobin Concent 34 32-36 g/dL Red Cell Distribution Width 16.0 H 10.0-14.5 % Platelet Count 326 130-400 10^3/uL Mean Platelet Volume 10.0 9.0-12.2 fL Immature Granulocyte % (Auto) 4 % Neutrophils (%) (Auto) 61 42-75 % Lymphocytes (%) (Auto) 21 12-44 % Monocytes (%) (Auto) 12 0-12 % Eosinophils (%) (Auto) 0 0-10 % Basophils (%) (Auto) 1 0-10 % Neutrophils # (Auto) 1.7 L 1.8-7.8 10^3/uL Lymphocytes # (Auto) 0.6 L 1.0-4.0 10^3/uL Monocytes # (Auto) 0.4 0.0-1.0 10^3/uL Eosinophils # (Auto) 0.0 0.0-0.3 10^3/uL Basophils # (Auto) 0.0 0.0-0.1 10^3/uL Immature Granulocyte # (Auto) 0.1 0.0-0.1 10^3/uL My Orders Orders - ILDA MOREIRA MD Cbc With Automated Diff (03/24/20 14:14) Vital Signs/I&O 03/24/20 14:00 Temp 36.0 Pulse 79 Resp 20 B/P (MAP) 167/91 (116) Pulse Ox 96 O2 Delivery Room Air Capillary Refill : Progress Note : Time: 14:30 Progress Note 74-year-old male with a history of myelodysplastic syndrome presents to the emergency room with generalized weakness. On exam the patient is nontoxic- appearing. He has no specific complaints of illness or injury. He just has some generalized malaise/fatigue. As the patient has refractory anemia we will check a CBC today to make sure that he is above the 8.0 priyanka. If indeed he is we will discharge him to home if not we will address that further. 1444 CBC shows hemoglobin of 7.8. Patient is comfortable with us the rest of his laboratory findings are consistent with previous. Patient is eager for discharge. No other complaints are found. The patient has no clinical or objective findings to warrant further investigation from the emergency department. Plan of care has been discussed with the patient he is agreeable he is again eager to go home. All questions are sought and answered he is stable for discharge. Departure Impression Primary Impression: Fatigue Qualified Codes: R53.82 - Chronic fatigue, unspecified Disposition: 01 HOME, SELF-CARE Condition: Stable Departure-Patient Inst. Decision time for Depature: 14:46 Referrals: KEVIN BURCH DO (PCP/Family) Primary Care Physician Patient Instructions: Fatigue (DC) Add. Discharge Instructions: Continue current medications as prescribed. Follow-up with your primary care physician as scheduled as well as your cancer doctor. Return to the emergency room for any new or concerning symptoms. All discharge instructions reviewed with patient and/or family. Voiced understanding. Copy Copies To 1: KEVIN BURCH KATHRYN M MD Mar 24, 2020 14:13
[2020-03-24 14:31] LABS: BASOPHILS % (AUTO) 1 % (0-10); EOSINOPHILS % (AUTO) 0 % (0-10); HEMATOCRIT 23 % (40-54); HEMOGLOBIN 7.8 g/dL (13.3-17.7); LYMPHOCYTES # (AUTO) 0.6 10^3/uL (1.0-4.0); LYMPHOCYTES % (AUTO) 21 % (12-44); MEAN CORPUSCULAR HEMOGLOBIN 30 pg (25-34); MEAN CORPUSCULAR HGB CONC 34 g/dL (32-36); MEAN CORPUSCULAR VOLUME 89 fL (80-99); MONOCYTES # (AUTO) 0.4 10^3/uL (0.0-1.0); MONOCYTES % (AUTO) 12 % (0-12); NEUTROPHILS # (AUTO) 1.7 10^3/uL (1.8-7.8); NEUTROPHILS % (AUTO) 61 % (42-75); PLATELET COUNT 326 10^3/uL (130-400); WHITE BLOOD COUNT 2.8 10^3/uL (4.3-11.0)
== END 2020-03-24 15:03 | disposition home or self-care (01) ==
LOC: EDUNIT# 14:04 → ER 14:06
DX: R53.83 Other fatigue (principal); I10 Essential (primary) hypertension; N40.0 Benign prostatic hyperplasia without lower urinary tract symptoms; Z86.2 Personal history of diseases of the blood and blood-forming organs and certain disorders involving the immune mechanism; Z87.891 Personal history of nicotine dependence; Z88.7 Allergy status to serum and vaccine; Z79.82 Long term (current) use of aspirin
CPT/HCPCS: 36415; 85025; 99283

== ENCOUNTER → 2020-04-15 | Day surgery (SDC) | payer MEDICARE, OTHER ==
[~2020-04-15] VITALS: Ht 187.9 cm; Wt 82.7 kg
[~2020-04-15] MED LIST changes: +LIDOCAINE 1% INJ 20 ML 20 ML VIAL ONE
[2020-04-15 11:15] VITALS: BP 131/66
--- NOTE | 2020-04-15 12:34 | Implantation of Loop Monitor ---
Implant of Loop Monitior IMPLANTATION OF LOOP MONITOR REPORT DATE OF PROCEDURE: 04/15/20 PREOP DIAGNOSIS: Paroxysmal atrial fibrillation POSTOP DIAGNOSIS: Paroxysmal atrial fibrillation PROCEDURE DETAILS: The patient is a 74 male with history of paroxysmal atrial fibrillation requiring long-term surveillance, planning to stop oral anticoagulation. Therefore implantable loop recorder was discussed and agreed with the patient. Informed consent was taken. All risks and complications were discussed at length. The patient was draped and prepped in the usual sterile fashion. Local anesthesia was lidocaine, which was given in the substernal area close to the 4th intercostal space. Loop monitor [employer] with serial number [id number] was implanted according to the protocol. Steri-Strips were placed at the end of the procedure. There were no complications and the patient tolerated the procedure well. ANESTHESIA: Local anesthesia with lidocaine. COMPLICATIONS: None CONTRAST/FLUOROSCOPY: None CONCLUSION: Successful implantation of a loop monitor with no complication FINAL DIAGNOSIS: Paroxysmal atrial fibrillation Palpitation JULISSA BYRD MD Apr 15, 2020 12:34 pm
== END ==
LOC: CATH 11:30
PROVIDERS: ATTEND Internal Medicine Cardiovascular Disease
DX: I48.0 Paroxysmal atrial fibrillation (principal); E78.2 Mixed hyperlipidemia; I10 Essential (primary) hypertension; I25.10 Atherosclerotic heart disease of native coronary artery without angina pectoris; I73.9 Peripheral vascular disease, unspecified; N40.0 Benign prostatic hyperplasia without lower urinary tract symptoms; D46.9 Myelodysplastic syndrome, unspecified; F17.210 Nicotine dependence, cigarettes, uncomplicated; Z79.82 Long term (current) use of aspirin; Z79.899 Other long term (current) drug therapy; Z79.01 Long term (current) use of anticoagulants; Z88.7 Allergy status to serum and vaccine; Z89.511 Acquired absence of right leg below knee; Z80.9 Family history of malignant neoplasm, unspecified
CPT/HCPCS: 33285; C1764

== ENCOUNTER 2020-04-21 13:37 | Outpatient (RCR) | payer MEDICARE, OTHER ==
[2020-02-05 10:36] LABS: ABSOLUTE RETIC # 49 10e9/L (24-90); BASOPHILS # (AUTO) 0.1 10^3/uL (0.0-0.1); BASOPHILS % (AUTO) 1 % (0-10); EOSINOPHILS # (AUTO) 0.1 10^3/uL (0.0-0.3); EOSINOPHILS % (AUTO) 2 % (0-10); HEMATOCRIT 24 % (40-54); HEMOGLOBIN 7.6 G/DL (13.3-17.7); LYMPHOCYTES # (AUTO) 0.9 X 10^3 (1.0-4.0); LYMPHOCYTES % (AUTO) 22 % (12-44); MEAN CORPUSCULAR HEMOGLOBIN 30 PG (25-34); MEAN CORPUSCULAR HGB CONC 31 G/DL (32-36); MEAN CORPUSCULAR VOLUME 97 FL (80-99); MEAN PLATELET VOLUME 10.3 FL (7.4-10.4); MONOCYTES # (AUTO) 0.6 X 10^3 (0.0-1.0); MONOCYTES % (AUTO) 13 % (0-12); NEUTROPHILS # (AUTO) 2.7 X 10^3 (1.8-7.8); NEUTROPHILS % (AUTO) 62 % (42-75); PLATELET COUNT 548 10^3/uL (130-400); RETICULOCYTE % 1.94 % (0.50-2.40); WHITE BLOOD COUNT 4.4 10^3/uL (4.3-11.0)
[2020-02-05 10:55] LABS: ALANINE AMINOTRANSFERASE 32 U/L (0-55); ALBUMIN 3.7 GM/DL (3.2-4.5); ALKALINE PHOSPHATASE 68 U/L (40-136); BILIRUBIN,TOTAL 0.3 MG/DL (0.1-1.0); BUN/CREATININE RATIO 18; CALCIUM 8.9 MG/DL (8.5-10.1); CARBON DIOXIDE 24 MMOL/L (21-32); CHLORIDE 107 MMOL/L (98-107); CREATININE SERUM 1.14 MG/DL (0.60-1.30); GFR ESTIMATED > 60; GLUCOSE 113 MG/DL (70-105); POTASSIUM 4.1 MMOL/L (3.6-5.0); SODIUM 142 MMOL/L (135-145); TOTAL PROTEIN 7.1 GM/DL (6.4-8.2)
[2020-03-18 11:00] LABS: BASOPHILS % (AUTO) 0 % (0-10); EOSINOPHILS # (AUTO) 0.1 10^3/uL (0.0-0.3); EOSINOPHILS % (AUTO) 5 % (0-10); HEMATOCRIT 22 % (40-54); HEMOGLOBIN 7.4 g/dL (13.3-17.7); LYMPHOCYTES # (AUTO) 0.7 10^3/uL (1.0-4.0); LYMPHOCYTES % (AUTO) 29 % (12-44); MEAN CORPUSCULAR HEMOGLOBIN 30 pg (25-34); MEAN CORPUSCULAR HGB CONC 33 g/dL (32-36); MEAN CORPUSCULAR VOLUME 90 fL (80-99); MONOCYTES # (AUTO) 0.3 10^3/uL (0.0-1.0); MONOCYTES % (AUTO) 13 % (0-12); NEUTROPHILS # (AUTO) 1.2 10^3/uL (1.8-7.8); NEUTROPHILS % (AUTO) 51 % (42-75); PLATELET COUNT 422 10^3/uL (130-400); WHITE BLOOD COUNT 2.4 10^3/uL (4.3-11.0)
[2020-03-18 11:28] LABS: ALANINE AMINOTRANSFERASE 34 U/L (0-55); ALBUMIN 3.7 GM/DL (3.2-4.5); ALKALINE PHOSPHATASE 69 U/L (40-136); BILIRUBIN,TOTAL 0.5 MG/DL (0.1-1.0); BUN/CREATININE RATIO 23; CALCIUM 8.6 MG/DL (8.5-10.1); CARBON DIOXIDE 25 MMOL/L (21-32); CHLORIDE 107 MMOL/L (98-107); CREATININE SERUM 0.99 MG/DL (0.60-1.30); GFR ESTIMATED > 60; GLUCOSE 91 MG/DL (70-105); POTASSIUM 3.8 MMOL/L (3.6-5.0); SODIUM 140 MMOL/L (135-145)
[~2020-04-21 13:37] MED LIST changes: -LIDOCAINE 1% INJ 20 ML 20 ML VIAL ONE; +LUSPATERCEPT AAMT SQ SCH; +NS (IVPB) CANCER CENTER 250 ML ONE; +NS IV 500 ML (CANCER CENTER) 500 ML ONE
== END 2020-04-26 | disposition home or self-care (01) ==
LOC: ONC 13:37
PROVIDERS: ATTEND Internal Medicine Hematology & Oncology
DX: D47.3 Essential (hemorrhagic) thrombocythemia (principal); D46.9 Myelodysplastic syndrome, unspecified; Z89.511 Acquired absence of right leg below knee
CPT/HCPCS: 36430; 86850; 86900; 86901; 86920; P9016; 36415; 80053; 83615; 85025; 85045; 96372

== ENCOUNTER 2020-06-02 08:17 | Outpatient (RCR) | payer MEDICARE, OTHER ==
[2020-05-14 10:04] LABS: ABSOLUTE RETIC # 7 10e9/uL (24-90); BASOPHILS % (AUTO) 0 % (0-10); EOSINOPHILS % (AUTO) 1 % (0-10); LYMPHOCYTES # (AUTO) 0.6 10^3/uL (1.0-4.0); LYMPHOCYTES % (AUTO) 18 % (12-44); MEAN CORPUSCULAR HEMOGLOBIN 29 pg (25-34); MEAN CORPUSCULAR HGB CONC 33 g/dL (32-36); MEAN CORPUSCULAR VOLUME 89 fL (80-99); MEAN PLATELET VOLUME 10.2 fL (9.0-12.2); MONOCYTES # (AUTO) 0.3 10^3/uL (0.0-1.0); MONOCYTES % (AUTO) 10 % (0-12); NEUTROPHILS % (AUTO) 64 % (42-75); PLATELET COUNT 181 10^3/uL (130-400); RETICULOCYTE % 0.32 % (0.50-2.40); WHITE BLOOD COUNT 3.1 10^3/uL (4.3-11.0)
[2020-05-14 10:05] LABS: HEMOGLOBIN 6.5 g/dL (13.3-17.7)
[2020-05-14 10:06] LABS: HEMATOCRIT 20 % (40-54)
[2020-05-14 10:23] LABS: ALANINE AMINOTRANSFERASE 94 U/L (0-55); ALBUMIN 3.5 GM/DL (3.2-4.5); ALKALINE PHOSPHATASE 64 U/L (40-136); BILIRUBIN,TOTAL 0.3 MG/DL (0.1-1.0); BUN/CREATININE RATIO 27; CALCIUM 8.5 MG/DL (8.5-10.1); CARBON DIOXIDE 24 MMOL/L (21-32); CHLORIDE 109 MMOL/L (98-107); CREATININE SERUM 0.94 MG/DL (0.60-1.30); GFR ESTIMATED > 60; GLUCOSE 98 MG/DL (70-105); POTASSIUM 3.7 MMOL/L (3.6-5.0); SODIUM 141 MMOL/L (135-145); TOTAL PROTEIN 7.1 GM/DL (6.4-8.2)
[2020-05-18 08:36] LABS: BASOPHILS % (AUTO) 0 % (0-10); EOSINOPHILS % (AUTO) 1 % (0-10); LYMPHOCYTES # (AUTO) 0.6 10^3/uL (1.0-4.0); LYMPHOCYTES % (AUTO) 18 % (12-44); MEAN CORPUSCULAR HEMOGLOBIN 29 pg (25-34); MEAN CORPUSCULAR HGB CONC 33 g/dL (32-36); MEAN CORPUSCULAR VOLUME 89 fL (80-99); MEAN PLATELET VOLUME 10.2 fL (9.0-12.2); MONOCYTES # (AUTO) 0.4 10^3/uL (0.0-1.0); MONOCYTES % (AUTO) 10 % (0-12); NEUTROPHILS # (AUTO) 2.3 10^3/uL (1.8-7.8); NEUTROPHILS % (AUTO) 66 % (42-75); PLATELET COUNT 182 10^3/uL (130-400); WHITE BLOOD COUNT 3.5 10^3/uL (4.3-11.0)
[2020-05-18 08:37] LABS: HEMATOCRIT 19 % (40-54); HEMOGLOBIN 6.2 g/dL (13.3-17.7)
[~2020-06-02 08:17] MED LIST changes: -LUSPATERCEPT AAMT SQ SCH; -NS (IVPB) CANCER CENTER 250 ML ONE; +NS IV 1000 ML (CANCER CTR) 1,000 ML ONE
[2020-06-02] MEDS ORDERED: NS IV 500 ML (CANCER CENTER) 500 ML ONE (08:37)
== END 2020-06-08 15:42 | disposition home or self-care (01) ==
LOC: ONC 08:17
PROVIDERS: ATTEND Internal Medicine Hematology & Oncology
DX: I73.9 Peripheral vascular disease, unspecified (principal); I10 Essential (primary) hypertension; D47.3 Essential (hemorrhagic) thrombocythemia; D46.9 Myelodysplastic syndrome, unspecified; Z89.511 Acquired absence of right leg below knee; Z72.0 Tobacco use
CPT/HCPCS: 36430; 86850; 86900; 86901; 86920; P9016; 36415; 80053; 83615; 85025; 85045; 99213

== ENCOUNTER → 2020-06-23 | Outpatient (CLI) | payer MEDICARE ==
[~2020-06-23] MED LIST changes: -NS IV 1000 ML (CANCER CTR) 1,000 ML ONE; -NS IV 500 ML (CANCER CENTER) 500 ML ONE
--- NOTE | 2020-06-23 16:26 | Diagnostic Imaging Report ---
CLINICAL INDICATION: Patient with bilateral carotid bruits. COMPARISON: None. EXAM: Real-time carotid Doppler duplex imaging is performed bilaterally. Peak systolic velocity, ICA/CCA peak systolic ratio, spectral analysis, and vascular morphology are studied. FINDINGS: ARTERY VELOCITY Right Left CCA 1.20 m/s 1.30 m/s ICA 1.98 m/s 1.01 m/s ECA 1.65 m/s 2.08 m/s ICA/CCA 1.7 0.8 VERT.ART Antegrade Antegrade There is bilateral carotid artery atherosclerotic disease with the left carotid artery affected the most. IMPRESSION: There are elevated velocities within the bilateral ECA and proximal right ICA which demonstrates 50% or less stenosis. Dictated by: Dictated on workstation # [id number]
== END ==
LOC: RAD 14:15
PROVIDERS: ATTEND Family Medicine
DX: I65.23 Occlusion and stenosis of bilateral carotid arteries (principal)
CPT/HCPCS: 93880

== ENCOUNTER 2020-08-24 10:17 | Outpatient (RCR) | payer MEDICARE, OTHER ==
[2020-06-10 11:06] LABS: ABSOLUTE RETIC # 3 10e9/uL (24-90); BASOPHILS % (AUTO) 0 % (0-10); EOSINOPHILS # (AUTO) 0.1 10^3/uL (0.0-0.3); EOSINOPHILS % (AUTO) 2 % (0-10); LYMPHOCYTES # (AUTO) 0.4 10^3/uL (1.0-4.0); LYMPHOCYTES % (AUTO) 18 % (12-44); MEAN CORPUSCULAR HEMOGLOBIN 30 pg (25-34); MEAN CORPUSCULAR HGB CONC 32 g/dL (32-36); MEAN CORPUSCULAR VOLUME 92 fL (80-99); MEAN PLATELET VOLUME 9.5 fL (9.0-12.2); MONOCYTES # (AUTO) 0.2 10^3/uL (0.0-1.0); MONOCYTES % (AUTO) 8 % (0-12); NEUTROPHILS # (AUTO) 1.7 10^3/uL (1.8-7.8); NEUTROPHILS % (AUTO) 70 % (42-75); PLATELET COUNT 202 10^3/uL (130-400); RETICULOCYTE % 0.15 % (0.50-2.40); WHITE BLOOD COUNT 2.4 10^3/uL (4.3-11.0)
[2020-06-10 11:10] LABS: HEMATOCRIT 21 % (40-54); HEMOGLOBIN 6.7 g/dL (13.3-17.7)
[2020-06-10 11:23] LABS: ALANINE AMINOTRANSFERASE 74 U/L (0-55); ALBUMIN 3.1 GM/DL (3.2-4.5); ALKALINE PHOSPHATASE 57 U/L (40-136); BILIRUBIN,TOTAL 0.3 MG/DL (0.1-1.0); BUN/CREATININE RATIO 26; CALCIUM 8.6 MG/DL (8.5-10.1); CARBON DIOXIDE 24 MMOL/L (21-32); CHLORIDE 105 MMOL/L (98-107); CREATININE SERUM 0.82 MG/DL (0.60-1.30); GFR ESTIMATED > 60; GLUCOSE 120 MG/DL (70-105); POTASSIUM 3.8 MMOL/L (3.6-5.0); SODIUM 137 MMOL/L (135-145)
[2020-06-10 12:28] LABS: URIC ACID 5.3 MG/DL (2.6-7.2)
[~2020-08-24 10:17] MED LIST changes: -FOLI0.4T2 PO; +FOLI0.4T6 PO; -LISI-556 PO; +LISI-729 PO; +NS IV 500 ML (CANCER CENTER) 500 ML ONE
[2020-08-24] MEDS ORDERED: NS IV 500 ML (CANCER CENTER) 500 ML ONE (13:41)
[2020-08-28] MEDS ORDERED: L. A1CAP11 PO (03:05)
[2020-08-31] MEDS ORDERED: HYDR500C2 PO (15:08)
[2020-08-31] MEDS ORDERED: DILT60TA PO (15:08)
[2020-08-31] MEDS ORDERED: FOLI0.4T6 PO (15:08)
[2020-08-31] MEDS ORDERED: DIGO125T3 PO (15:08)
[2020-08-31] MEDS ORDERED: CLOP75TA28 PO (15:08)
[2020-08-31] MEDS ORDERED: [UNRECOGNIZED DRUG - CODE] PO (15:08)
[2020-09-03] MEDS ORDERED: METR-145 PO (12:42)
[2020-09-03] MEDS ORDERED: CHOL4PAC3 PO (12:42)
== END 2020-09-08 | disposition home or self-care (01) ==
LOC: ONC 10:17
PROVIDERS: ATTEND Internal Medicine Hematology & Oncology
DX: D46.9 Myelodysplastic syndrome, unspecified (principal); I73.9 Peripheral vascular disease, unspecified; I10 Essential (primary) hypertension; D47.3 Essential (hemorrhagic) thrombocythemia; Z89.511 Acquired absence of right leg below knee; Z72.0 Tobacco use
CPT/HCPCS: 36430; 80053; 82728; 83615; 84550; 85025; 85045; 86850; 86900; 86901; 86920; G0463; P9016; 36415; 82274

== ENCOUNTER 2020-08-28 00:10 | Emergency (ER) | payer MEDICARE ==
[~2020-08-28] VITALS: Ht 188 cm; Wt 85.0 kg
[~2020-08-28 00:10] MED LIST changes: -NS IV 500 ML (CANCER CENTER) 500 ML ONE
--- NOTE | 2020-08-28 00:20 | ED GI ---
General Stated Complaint: DIARRHEA X 2 DAYS Source of Information: Patient, EMS History of Present Illness Date Seen by Provider: Aug 28, 2020 Time Seen by Provider: 00:10 Initial Comments PT ARRIVES VIA EMS FROM HOME C/O DIARRHEA X 2 DAYS HAD ONE EPISODE OF DIARRHEA TODAY AND ONE EPISODE OF DIARRHEA YESTERDAY NO BLACK/BLOODY/TARRY STOOLS NO ABDOMINAL PAIN NO NAUSEA/VOMITING NO FEVER/SWEATS/CHILLS SEES DR. MORIN AT [facility] FOR "BLOOD DISORDER" -MYELODYSPLASTIC SYNDROME WITH REFRACTORY ANEMIA--GETS WEEKLY BLOOD TRANSFUSIONS--EVERY MONDAY, PER PT, INCLUDING THIS WEEK. PT IS ON PLAVIX FOR ATRIAL FIBRILLATION PT HAS NOT HAD A COLONOSCOPY IN YEARS, BUT HAS ONE SCHEDULED IN [place] IN NOVEMBER. LATER BRINGS IN MEDICATIONS AND MEDICATION LIST. PT HAS BEEN ON MACROBID SINCE 08/18/20 FOR UTI--PT DENIES ANY SYMPTOMS AT THIS TIME PT IS ON DEFERASIROX FOR "HIGH IRON LEVELS" PCP: DR. BURCH SQL DATABASE DEVELOPER: DR. BYRD ONCOLOGY/HEMATOLOGY: DR. MORIN Allergies and Home Medications Allergies Coded Allergies: Tetanus Vaccines and Toxoid (Verified Allergy, Unknown, 11/17/18) Home Medications Acetaminophen 325 Mg Tablet, 325-650 MG PO Q4H PRN for PAIN-MILD OR TEMPATURE, (Reported) Aspirin 81 Mg Tab.chew, 81 MG PO DAILY Prescribed by: KEVIN BURCH on 04/26/19 111 Clopidogrel Bisulfate 75 Mg Tablet, 75 MG PO DAILY Prescribed by: KEVIN BURCH on 04/26/19 111 Diltiazem HCl 240 Mg Cap.er.24h, 240 MG PO DAILY, (Reported) Finasteride 5 Mg Tablet, 5 MG PO DAILY, (Reported) Furosemide 40 Mg Tablet, 40 MG PO DAILY Prescribed by: KEVIN BURCH on 04/26/19 1114 L. Acidophilus/Pectin, [place] 1 Each Capsule, 2 EACH PO QID Prescribed by: KITTY RILEY on 08/28/20 0305 Lisinopril 5 Mg Tablet, 5 MG PO DAILY Prescribed by: KEVIN BUCRH on 04/26/19 1114 Metoprolol Tartrate 50 Mg Tablet, 50 MG PO BID Prescribed by: KEVIN BURCH on 04/26/19 1114 Potassium Chloride 20 Meq Tab.er.prt, 40 MEQ PO DAILY@0600 Prescribed by: KEVIN BURCH on 04/26/19 1114 Tamsulosin HCl 0.4 Mg Cap, 0.4 MG PO DAILY, (Reported) Patient Home Medication List Home Medication List Reviewed: Yes Review of Systems Review of Systems Constitutional: No chills, No diaphoresis, No dizziness, No fever; other (CHRONIC MALAISE, GENERALIZED WEAKNESS--NO DIFFERENT TODAY) Respiratory: No Symptoms Reported; Denies Shortness of Air Cardiovascular: No Symptoms Reported; Denies Chest Pain, Denies Edema, Denies Irregular Heart Rate, Denies Lightheadedness, Denies Palpitations, Denies Sync ope Gastrointestinal: See HPI; Denies Abdominal Pain; Diarrhea; Denies Nausea, Denies Poor Appetite, Denies Poor Fluid Intake, Denies Rectal Bleeding, Denies Vomiting Genitourinary: No Symptoms Reported Musculoskeletal: no symptoms reported Skin: no symptoms reported Psychiatric/Neurological: No Symptoms Reported; Denies Headache, Denies Numbness, Denies Paresthesia, Denies Tingling, Denies Weakness Endocrine: No Symptoms Reported Hematologic/Lymphatic: See HPI, Anemia Past Mihixlz-Syvjyy-Rnbmnb Hx Past Med/Social Hx: Reviewed and Corrections made Patient Social History Alcohol Use: Denies Use Smoking Status: Former Smoker (1 PPD, QUIT 03/2019) Type Used: Cigarettes Recent Hopitalizations: No Immunizations Up To Date Tetanus Booster (TDap): Less than 5yrs PED Vaccines UTD: Yes Seasonal Allergies Seasonal Allergies: No Past Medical History Surgeries: Yes (RIGHT BKA 03/2019;PICC LINE IN R ARM OF 06/30/19;LOOP RECORDER 04/15/20) Amputation, Cardiac, Orthopedic, Tonsillectomy Respiratory: Yes (RESPIRATORY FAILURE WITH SIRS AND PNEUMONIA 04/2019; PNEUMONIA 05/2019) Pneumonia Cardiac: Yes (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;LOOP RECORDER) Atrial Fibrillation, Heart Attack, High Cholesterol, Hypertension, Peripheral Vascular Neurological: No Genitourinary: Yes (HX OF HEMATURIA; HX OF RENAL FAILURE WITH SIRS/PNEUMONIA 04/2019) Benign Prostatic Hyperpl, Bladder Infection Gastrointestinal: Yes (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) Chronic Constipation, Gall Bladder Disease Musculoskeletal: Yes (RIGHT BKA; GENERALIZED WEAKNESS) Amputee Endocrine: No HEENT: Yes Hearing Impairment: Hard of Hearing, Bilateral Hearing Aide Cancer: Yes (MYELODYSPLASTIC DISORDER WITH LEUKOPENIA, ANEMIA AND THROMBOCYTOSIS) Did You Recieve Any Treatments: Yes What Type of Treatment Did You: Chemotherapy CHEMO WITH PLATELET PHERESIS Psychosocial: No Integumentary: Yes (LEFT ANKLE /LEFT HEEL WOUND; PYODERMA GANGRENOSUM) Blood Disorders: Yes (refractory anemia /ring sideroblasts W/ thrombocytosis;MYELODYSPLASIA) Adverse Reaction/Blood Tranf: No Family Medical History MYELODYSPLASTIC SYNDROME /MYELOPROLIFERATIVE DISORDER WAS DX 2016 IN [place]. HAD BEEN ON HYDROXYUREA, THIS WAS DC'D AND PT HAS BEEN ON ANAGRELIDE SINCE 03/2019. RECEIVES WEEKLY BLOOD TRANSFUSIONS--EVERY MONDAY ADDITIONAL PMH : -NSTEMI 04/23/19. -MULTIPLE EPISODES OF RESPIRATORY FAILURE Physical Exam Vital Signs Vital Signs - First Documented 08/28/20 00:40 Temp 36.8 Pulse 76 Resp 20 B/P (MAP) 147/46 (79) Pulse Ox 95 O2 Delivery Room Air Capillary Refill : Height/Weight/BMI Height: 6'1.00" Weight: 196lbs. oz. 88.674933us; 23.42 BMI Method:Stated General Appearance: WD/WN, no apparent distress, other (SOMEWHAT LETHARGIC, FLAT AFFECT; ODOR OF CIGARETTES) HEENT: pale conjunctivae (R), pale conjunctivae (L) Neck: normal inspection Respiratory: normal breath sounds, no respiratory distress, no accessory muscle use Cardiovascular: regular rate, rhythm, no murmur Gastrointestinal: normal bowel sounds, non tender, soft, no organomegaly, no pulsatile mass Extremities: other (RIGHT BKA) Neurologic/Psychiatric: lead caster II-XII nml as tested, no motor/sensory deficits, alert, oriented x 3 (BUT SOMEWHAT LIMITED MEMORY) Skin: warm/dry, pallor Progress/Results/Core Measures Results/Orders Lab Results Laboratory Tests Test 08/28/20 00:55 08/28/20 03:08 Range/Units White Blood Count 13.1 H 4.3-11.0 10^3/uL Red Blood Count 2.38 L 4.30-5.52 10^6/uL Hemoglobin 6.9 *L 13.3-17.7 g/dL Hematocrit 22 L 40-54 % Mean Corpuscular Volume 90 80-99 fL Mean Corpuscular Hemoglobin 29 25-34 pg Mean Corpuscular Hemoglobin Concent 32 32-36 g/dL Red Cell Distribution Width 14.4 10.0-14.5 % Platelet Count 231 130-400 10^3/uL Mean Platelet Volume 10.9 9.0-12.2 fL Immature Granulocyte % (Auto) 4 % Neutrophils (%) (Auto) 85 H 42-75 % Lymphocytes (%) (Auto) 4 L 12-44 % Monocytes (%) (Auto) 7 0-12 % Eosinophils (%) (Auto) 1 0-10 % Basophils (%) (Auto) 0 0-10 % Neutrophils # (Auto) 11.1 H 1.8-7.8 10^3/uL Lymphocytes # (Auto) 0.5 L 1.0-4.0 10^3/uL Monocytes # (Auto) 0.9 0.0-1.0 10^3/uL Eosinophils # (Auto) 0.1 0.0-0.3 10^3/uL Basophils # (Auto) 0.0 0.0-0.1 10^3/uL Immature Granulocyte # (Auto) 0.5 H 0.0-0.1 10^3/uL Prothrombin Time 15.8 H 12.2-14.7 SEC INR Comment 1.2 0.8-1.4 Activated Partial Thromboplast Time 39 H 24-35 SEC Sodium Level 138 135-145 MMOL/L Potassium Level 3.7 3.6-5.0 MMOL/L Chloride Level 108 H 98-107 MMOL/L Carbon Dioxide Level 20 L 21-32 MMOL/L Anion Gap 10 5-14 MMOL/L Blood Urea Nitrogen 21 H 7-18 MG/DL Creatinine 0.94 0.60-1.30 MG/DL Estimat Glomerular Filtration Rate > 60 BUN/Creatinine Ratio 22 Glucose Level 139 H 70-105 MG/DL Calcium Level 8.0 L 8.5-10.1 MG/DL Corrected Calcium 8.3 L 8.5-10.1 MG/DL Magnesium Level 1.8 1.6-2.4 MG/DL Total Bilirubin 0.3 0.1-1.0 MG/DL Aspartate Amino Transf (AST/SGOT) 33 5-34 U/L Alanine Aminotransferase (ALT/SGPT) 76 H 0-55 U/L Alkaline Phosphatase 63 40-136 U/L Total Protein 6.5 6.4-8.2 GM/DL Albumin 3.6 3.2-4.5 GM/DL Amylase Level 26 25-125 U/L Lipase 14 8-78 U/L Urine Color YELLOW Urine Clarity SL CLOUDY Urine pH 5.5 5-9 Urine Specific [place] <=1.005 1.016-1.022 Urine Protein NEGATIVE NEGATIVE Urine Glucose (UA) NEGATIVE NEGATIVE Urine Ketones NEGATIVE NEGATIVE Urine Nitrite NEGATIVE NEGATIVE Urine Bilirubin NEGATIVE NEGATIVE Urine Urobilinogen 0.2 < = 1.0 MG/DL Urine Leukocyte Esterase NEGATIVE NEGATIVE Urine RBC (Auto) 1+ H NEGATIVE Urine RBC 0-2 /HPF Urine WBC 0-2 /HPF Urine Squamous Epithelial Cells RARE /HPF Urine Crystals NONE /LPF Urine Bacteria NEGATIVE /HPF Urine Casts NONE /LPF Urine Mucus NEGATIVE /LPF Urine Culture Indicated NO My Orders Orders - KITTY RILEY DO Ed Iv/Invasive Line Start (08/28/20 00:15) Monitor-Rhythm Ecg Trace Only (08/28/20 00:15) Amylase (08/28/20 00:15) Cbc With Automated Diff (08/28/20 00:15) Comprehensive Metabolic Panel (08/28/20 00:15) Lipase (08/28/20 00:15) Magnesium (08/28/20 00:15) Protime With Inr (08/28/20 00:15) Partial Thromboplastin Time (08/28/20 00:15) Ua Culture If Indicated (08/28/20 00:15) Ed Iv/Invasive Line Start (08/28/20 00:15) Ct Abdomen/Pelvis W (08/28/20 00:15) Iohexol Injection (Omnipaque 350 Mg/Ml 1 (08/28/20 02:15) Received Contrast (Hold Metformin- Contr (08/28/20 02:15) Sodium Chloride Flush (Catheter Flush Sy (08/28/20 02:15) Ns (Ivpb) (Sodium Chloride 0.9% Ivpb Bag (08/28/20 02:15) Cyclobenzaprine Tablet (Flexeril Tablet) (08/28/20 02:45) Naproxen Tablet (Naprosyn Tablet) (08/28/20 02:45) Medications Given in ED Current Medications Medications Dose Ordered Sig/[place] Route Start Time Stop Time Status Last Admin Dose Admin Iohexol 100 ml ONCE ONCE IV 08/28/20 02:15 08/28/20 02:17 DC 08/28/20 02:27 100 ML Sodium Chloride 10 ml NEEDED PRN IV 08/28/20 02:15 08/28/20 03:40 DC 08/28/20 02:28 10 ML Sodium Chloride 100 ml ONCE ONCE IV 08/28/20 02:15 08/28/20 02:17 DC 08/28/20 02:28 80 ML Vital Signs/I&O 08/28/20 08/28/20 00:40 03:37 Temp 36.8 Pulse 76 63 Resp 20 16 B/P (MAP) 147/46 (79) 145/59 Pulse Ox 95 96 O2 Delivery Room Air Room Air Progress Progress Note : Progress Note NO DIARRHEA OR SYMPTOMS OF ANY KIND DURING ENTIRE ER STAY Diagnostic Imaging Comments CT ABDOMEN/PELVIS--GALLBLADDER DISTENDED AND AT LEAST ONE GALLSTONE PRESENT. CBD 6.5 MM DIAMETER. THERE MAY BE MILD COLITIS OF DESCENDING COLON, SIGMOID AND RECTUM. PROSTATE MILDLY ENLARGED. PER [facility] VIA FAX AT [phone] Reviewed: Reviewed by Me Departure Communication (Admissions) Family Conversation 0300-- IS NOW HERE. SHE STATES THAT PT HAS CHRONIC CONSTIPATION, AND WHEN IT GETS BAD, HE WILL TAKE "A WHOLE BUNCH OF DULCOLAX", AND HE DID THAT 2-3 DAYS AGO. DOES NOT TAKE ANY DAILY MEDICATION TO PREVENT CONSTIPATION. Impression Primary Impression: Diarrhea Additional Impressions: MILD COLITIS Gallbladder disease CHRONIC ANEMIA DUE TO MYELODYSPLASTIC SYNDROME Constipation Disposition: 01 HOME, SELF-CARE Condition: Stable Departure-Patient Inst. Referrals: KEVIN BURCH DO (PCP/Family) Primary Care Physician Patient Instructions: Constipation in Adults, Gallstones (DC) Add. Discharge Instructions: CLEAR LIQUIDS--WATER, BROTH, JELLO, GATORADE BRATS DIET--BANANAS, RICE, APPLESAUCE, TOAST, SALTINES IF YOU HAVE CONSTIPATION ON A REGULAR BASIS, BEGIN TAKING MIRALAX EVERY DAY TO PREVENT CONSTIPATION FOLLOW UP WITH DR. MORIN ON MONDAY FOLLOW UP WITH DR. BURCH ON MONDAY TO RECHECK THIS PROBLEM Scripts L. Acidophilus/Pectin, [place] (Acidophilus Capsule) 1 Each Capsule 2 EACH PO QID, #40 CAP Prov: KITTY RILEY DO 08/28/20 KITTY RILEY DO Aug 28, 2020 00:20
[2020-08-28 01:13] LABS: ALBUMIN 3.6 GM/DL (3.2-4.5)
[2020-08-28 01:14] LABS: CHLORIDE 108 MMOL/L (98-107); POTASSIUM 3.7 MMOL/L (3.6-5.0); SODIUM 138 MMOL/L (135-145)
[2020-08-28 01:15] LABS: AMYLASE 26 U/L (25-125); BASOPHILS % (AUTO) 0 % (0-10); EOSINOPHILS # (AUTO) 0.1 10^3/uL (0.0-0.3); EOSINOPHILS % (AUTO) 1 % (0-10); HEMATOCRIT 22 % (40-54); LYMPHOCYTES # (AUTO) 0.5 10^3/uL (1.0-4.0); LYMPHOCYTES % (AUTO) 4 % (12-44); MEAN CORPUSCULAR HEMOGLOBIN 29 pg (25-34); MEAN CORPUSCULAR HGB CONC 32 g/dL (32-36); MEAN CORPUSCULAR VOLUME 90 fL (80-99); MEAN PLATELET VOLUME 10.9 fL (9.0-12.2); MONOCYTES # (AUTO) 0.9 10^3/uL (0.0-1.0); MONOCYTES % (AUTO) 7 % (0-12); NEUTROPHILS # (AUTO) 11.1 10^3/uL (1.8-7.8); NEUTROPHILS % (AUTO) 85 % (42-75); PLATELET COUNT 231 10^3/uL (130-400); WHITE BLOOD COUNT 13.1 10^3/uL (4.3-11.0)
[2020-08-28 01:16] LABS: GLUCOSE 139 MG/DL (70-105); TOTAL PROTEIN 6.5 GM/DL (6.4-8.2)
[2020-08-28 01:17] LABS: CARBON DIOXIDE 20 MMOL/L (21-32)
[2020-08-28 01:18] LABS: BILIRUBIN,TOTAL 0.3 MG/DL (0.1-1.0)
[2020-08-28 01:19] LABS: ALKALINE PHOSPHATASE 63 U/L (40-136)
[2020-08-28 01:20] LABS: CREATININE SERUM 0.94 MG/DL (0.60-1.30); GFR ESTIMATED > 60
[2020-08-28 01:21] LABS: BUN/CREATININE RATIO 22
[2020-08-28 01:22] LABS: ALANINE AMINOTRANSFERASE 76 U/L (0-55); MAGNESIUM 1.8 MG/DL (1.6-2.4)
[2020-08-28 01:23] LABS: LIPASE 14 U/L (8-78)
[2020-08-28 01:24] LABS: HEMOGLOBIN 6.9 g/dL (13.3-17.7)
[2020-08-28 01:29] LABS: INR 1.2 (0.8-1.4); PROTHROMBIN TIME PATIENT 15.8 SEC (12.2-14.7)
[2020-08-28] MEDS ORDERED: NS 100 ML (IVPB) BAG IV ONE (02:15)
[2020-08-28] MEDS ORDERED: IOHEXOL 350 MG/ML 100 ML (OMNIPAQUE 350) VIAL IV ONE (02:15)
[2020-08-28] MEDS ORDERED: CATHETER FLUSH 10 ML SYR IV PRN (02:15)
[2020-08-28] MEDS ORDERED: HOLD METFORMIN - RECEIVED CONTRAST 20 ML VIAL IV SCH (02:15)
[2020-08-28] MEDS ORDERED: NAPROXEN 250 MG (NAPROSYN) TABLET PO ONE (02:45)
[2020-08-28] MEDS ORDERED: CYCLOBENZAPRINE 10 MG (FLEXERIL) TAB PO SCH (02:45)
[2020-08-28] MEDS ORDERED: L. A1CAP11 PO (03:05)
[2020-08-28 03:24] LABS: BILIRUBIN,URINE NEGATIVE (NEGATIVE); CLARITY,URINE SL CLOUDY; COLOR,URINE YELLOW; GLUCOSE, URINE (UA) NEGATIVE (NEGATIVE); KETONES,URINE NEGATIVE (NEGATIVE); LEUKOCYTE ESTERASE ,URINE NEGATIVE (NEGATIVE); NITRITE,URINE NEGATIVE (NEGATIVE); PH,URINE 5.5 (5-9); PROTEIN,URINE NEGATIVE (NEGATIVE)
[2020-08-28 03:35] LABS: BACTERIA,URINE NEGATIVE /HPF; RBC,URINE 0-2 /HPF; SQUAMOUS EPITHELIAL CELL,UR RARE /HPF; WBC,URINE 0-2 /HPF
[2020-08-28 03:37] VITALS: BP 145/59
--- NOTE | 2020-08-28 09:00 | Diagnostic Imaging Report ---
PROCEDURE: CT abdomen and pelvis with contrast. TECHNIQUE: Multiple contiguous axial images were obtained through the abdomen and pelvis after administration of intravenous contrast. Auto Exposure Controls were utilized during the CT exam to meet ALARA standards for radiation dose reduction. All CT scans use one or more of the following dose optimizing techniques: automated exposure control, MA and/or KvP adjustment based on patient size and exam type or iterative reconstruction. DATE: August 28, 2020. COMPARISON: CT abdomen and pelvis November 17, 2018. INDICATION: 74-year-old male, diarrhea. History of myelodysplastic disorder. FINDINGS: There are dependent linear opacities in the right and left lower lobes likely relating to atelectasis. The heart is not enlarged. There is no identified pericardial effusion. The liver is unremarkable in size and contour. There is no identified focal liver lesion. The main, right, and left portal veins are patent. The gallbladder is distended. There are gallstones present. There is no pericholecystic fluid or adjacent inflammatory stranding to suggest acute cholecystitis. There is no biliary ductal dilation. The main pancreatic duct is not abnormally dilated. Unremarkable appearance of the pancreatic parenchyma. The spleen is normal in size. The adrenal glands are unremarkable. Unremarkable appearance of the renal parenchyma. The urinary collecting systems are not distended. There is no identified renal or ureteral stone. The urinary bladder is unremarkable. There is abnormal mucosal enhancement and wall thickening of the rectum and sigmoid colon. There is also mild wall thickening of the colon in the region of the splenic flexure. There is no evidence of acute appendicitis. The terminal ileum is unremarkable in appearance. There is no free intraperitoneal air. There is no drainable fluid collection. There is no free pelvic fluid. There are atherosclerotic calcifications. There is no identified abnormally enlarged lymph node in the abdomen or pelvis meeting CT size criteria for adenopathy. There is an area of soft tissue attenuation adjacent to the posterior aspect of the right lobe of the liver. There is an adjacent linear area of high attenuation. This area measures approximately 3.5 x 2.6 cm in size. This is unchanged since at least November 17, 2018 suggesting benign etiology. There is no identified acute bony abnormality. IMPRESSION: CT ABDOMEN AND PELVIS. 1. Abnormal wall thickening of the rectum and sigmoid colon as well as in the region of the splenic flexure likely relating to a nonspecific colitis. Infectious and inflammatory etiologies are favored. 2. Cholelithiasis and gallbladder distention without findings to specifically suggest acute cholecystitis. Dictated by: Dictated on workstation # [id number]
== END 2020-08-28 03:15 | disposition home or self-care (01) ==
LOC: EDUNIT# 00:10 → ER 00:12
DX: K52.9 Noninfective gastroenteritis and colitis, unspecified (principal); D46.9 Myelodysplastic syndrome, unspecified; K82.9 Disease of gallbladder, unspecified; K59.09 Other constipation; I10 Essential (primary) hypertension; I25.2 Old myocardial infarction; I48.91 Unspecified atrial fibrillation; E78.00 Pure hypercholesterolemia, unspecified; Z87.438 Personal history of other diseases of male genital organs; Z89.511 Acquired absence of right leg below knee; Z87.891 Personal history of nicotine dependence; Z79.82 Long term (current) use of aspirin; Z79.02 Long term (current) use of antithrombotics/antiplatelets; Z95.810 Presence of automatic (implantable) cardiac defibrillator
CPT/HCPCS: 36415; 74177; 80053; 81000; 82150; 83690; 83735; 85025; 85610; 85730; 93041

== ENCOUNTER 2020-08-31 11:48 | Observation (INO) | payer MEDICARE ==
[~2020-08-31] VITALS: Ht 188 cm; Wt 81.8 kg
[~2020-08-31 11:48] MED LIST changes: +L. A1CAP11 PO
[2020-08-31] MEDS ORDERED: ONDANSETRON 4 MG/2 ML (SDV) Z0FRAN IV PRN (12:15)
[2020-08-31] MEDS ORDERED: PATIENT MAY USE OWN MEDS, ALL PO SCH (12:15)
[2020-08-31] MEDS ORDERED: ACETAMINOPHEN 325 MG TABLET PO PRN (12:30)
[2020-08-31 12:50] VITALS: BP 128/60
[2020-08-31] MEDS: NS W/KCL 20 MEQ/L 1,000 ML IV SCH ×2 (13:16→21:14)
[2020-08-31 13:44] LABS: ALBUMIN 3.9 GM/DL (3.2-4.5); CHLORIDE 104 MMOL/L (98-107); POTASSIUM 4.5 MMOL/L (3.6-5.0); SODIUM 138 MMOL/L (135-145)
[2020-08-31 13:45] LABS: CALCIUM 8.6 MG/DL (8.5-10.1)
[2020-08-31 13:47] LABS: GLUCOSE 103 MG/DL (70-105); TOTAL PROTEIN 7.2 GM/DL (6.4-8.2)
[2020-08-31 13:48] LABS: BILIRUBIN,TOTAL 0.2 MG/DL (0.1-1.0); CARBON DIOXIDE 21 MMOL/L (21-32)
[2020-08-31 13:50] LABS: ALKALINE PHOSPHATASE 76 U/L (40-136); CREATININE SERUM 1.12 MG/DL (0.60-1.30); GFR ESTIMATED > 60; PHOSPHORUS 4.2 MG/DL (2.3-4.7)
[2020-08-31 13:52] LABS: BUN/CREATININE RATIO 26
[2020-08-31 13:53] LABS: ALANINE AMINOTRANSFERASE 94 U/L (0-55); MAGNESIUM 2.1 MG/DL (1.6-2.4)
[2020-08-31] MEDS: metroNIDAZOLE 500MG/100ML IVPB 100 ML IV SCH ×2 (14:06→21:14)
[2020-08-31] MEDS ORDERED: RT-ALBUTEROL SULF 2.5 MG/3 ML PRE-MIX VIAL INH PRN (14:15)
[2020-08-31] MEDS ORDERED: HYDR500C2 PO (15:08)
[2020-08-31] MEDS ORDERED: DIGO125T3 PO (15:08)
[2020-08-31] MEDS ORDERED: DILT60TA PO (15:08)
[2020-08-31] MEDS ORDERED: [UNRECOGNIZED DRUG - CODE] PO (15:08)
[2020-08-31] MEDS ORDERED: CLOP75TA28 PO (15:08)
[2020-08-31] MEDS ORDERED: FOLI0.4T6 PO (15:08)
[2020-08-31 15:54] VITALS: BP 126/61
[2020-08-31] MEDS: TAMSULOSIN 0.4 MG (FLOMAX) CAP PO SCH (17:56)
[2020-08-31 20:00] VITALS: BP 116/57
--- NOTE | 2020-08-31 20:08 | History & Physical ---
History of Present Illness History of Present Illness Reason for visit/HPI This is a 74 year old male who presented to my office with a 5 day history of diarrhea. He had been seen 3 days prior in the emergency room and diagnosed with colitis. He was given IVFs and sent home but had ongoing diarrhea and weakness. Due to his complicated medical history and ongoing diarrhea with poor oral intake, it was decided to admit him for IVFs, flagyl and further evaluation and treatment. 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 Date of Admission Aug 31, 2020 at 12:35 Date Seen by a Provider: Aug 31, 2020 Time Seen by a Provider: 12:00 I consulted on this patient on 08/31/20 20:03 Attending Physician Leeann Burch DO Admitting Physician Leeann Burch DO Consult Allergies and Home Medications Allergies Coded Allergies: Sulfa (Sulfonamide Antibiotics) (Verified Allergy, Intermediate, 08/31/20) Tetanus Vaccines and Toxoid (Verified Allergy, Unknown, 11/17/18) Home Medications Clopidogrel Bisulfate 75 Mg Tablet, 75 MG PO DAILY, (Reported) Deferasirox 360 Mg Tablet, 1,080 MG PO DAILY, (Reported) TAKES 3 (360MG) TABLETS TAKE ON AN EMPTY STOMACH Digoxin 125 Mcg Tablet, 125 MCG PO DAILY, (Reported) Diltiazem HCl 60 Mg Tablet, 60 MG PO QID, (Reported) Finasteride 5 Mg Tablet, 5 MG PO DAILY, (Reported) Folic Acid 0.4 Mg Tablet, 0.4 MG PO DAILY, (Reported) Hydroxyurea 500 Mg Capsule, 500 MG PO BID, (Reported) Tamsulosin HCl 0.4 Mg Cap, 0.8 MG PO DAILY, (Reported) TAKES 2 (0.4MG) TABLETS Patient Home Medication List Home Medication List Reviewed: Yes Past Sljjzhj-Cjinhx-Nlcglg Hx Past Med/Social Hx: Reviewed Nursing Past Med/Soc Hx Patient Social History Marrital Status: Employed/Student: retired Smoking Status: Current Everyday Smoker Type Used: Cigarettes Recent Foreign Travel: No Contact w/other who traveled: No Recent Hopitalizations: No Immunizations Up To Date Tetanus Booster (TDap): Less than 5yrs Pediatric: Yes Seasonal Allergies Seasonal Allergies: No Past Medical History Surgeries: Amputation, Cardiac, Orthopedic, Tonsillectomy Cardiac: Atrial Fibrillation, Heart Attack, High Cholesterol, Hypertension, Peripheral Vascular Genitourinary: Benign Prostatic Hyperpl, Bladder Infection Gastrointestinal: Chronic Constipation, Gall Bladder Disease Musculoskeletal: Amputee Hearing Impairment: Hard of Hearing, Bilateral Hearing Aide Did You Recieve Any Treatments: Yes What Type of Treatment Did You: Chemotherapy History of Blood Disorders: Yes (refractory anemia /ring sideroblasts W/ thrombocytosis;MYELODYSPLASIA) Adverse Reaction to Blood Ramirez: No Family History MYELODYSPLASTIC SYNDROME /MYELOPROLIFERATIVE DISORDER WAS DX 2016 IN [place]. HAD BEEN ON HYDROXYUREA, THIS WAS DC'D AND PT HAS BEEN ON ANAGRELIDE SINCE 03/2019. RECEIVES WEEKLY BLOOD TRANSFUSIONS--EVERY MONDAY ADDITIONAL PMH : -NSTEMI 04/23/19. -MULTIPLE EPISODES OF RESPIRATORY FAILURE Review of Systems Constitutional: weakness EENTM: No see HPI, No no symptoms reported, No ear discharge, No hearing loss, No ear pain, No blurred vision, No double vision, No eye pain, No tearing, No vision loss, No dental problems, No hoarseness, No mouth pain, No mouth swelling, No epistaxis, No nose congestion, No nose pain, No throat pain, No throat swelling, No other Respiratory: No no symptoms reported, No see HPI, No cough, No dyspnea on exertion, No hemoptysis, No orthopnea, No phlegm, No short of breath, No stridor, No wheezing, No other Cardiovascular: No no symptoms reported, No see HPI, No chest pain, No edema, No Hx of Intervention, No palpitations, No syncope, No vascular heart diseas, No other Gastrointestinal: diarrhea, loss of appetite Genitourinary: No no symptoms reported, No see HPI, No decreased output, No d ischarge, No dysuria, No frequency, No hematuria, No hesitancy, No incontinence, No nocturia, No pain, No other Musculoskeletal: muscle weakness Skin: No no symptoms reported, No see HPI, No change in color, No change in hair/nails, No dryness, No hx of skin cancer, No lesions, No lumps, No pruritus, No rash, No other Psychiatric/Neurological: Weakness Physical Exam Vital Signs Vital Signs - First Documented 08/31/20 12:50 Temp 36.0 Pulse 74 Resp 18 B/P (MAP) 128/60 (82) Pulse Ox 100 O2 Delivery Room Air Capillary Refill : Height, Weight, BMI Height: 6'1.00" Weight: 196lbs. oz. 88.935632kg; 23.14 BMI Method:Stated General Appearance: Mild Distress HEENT: Other (MM dry) Neck: Supple Respiratory: Lungs Clear Cardiovascular: Regular Rate, Rhythm, Systolic Murmur Gastrointestinal: Normal Bowel Sounds, Non Tender, Soft Rectal: Deferred Back: No CVA Tenderness Extremity: Non Tender, No Calf Tenderness, No Pedal Edema Neurologic/Psychiatric: Alert, Oriented x3 Skin: Warm/Dry Comments Laboratory Tests 08/31/20 13:20: Sodium Level 138, Potassium Level 4.5, Chloride Level 104, Carbon Dioxide Level 21, Anion Gap 13, Blood Urea Nitrogen 29H, Creatinine 1.12, Estimat Glomerular Filtration Rate > 60, BUN/Creatinine Ratio 26, Glucose Level 103, Calcium Level 8.6, Corrected Calcium 8.7, Phosphorus Level 4.2, Magnesium Level 2.1, Total Bilirubin 0.2, Aspartate Amino Transf (AST/SGOT) 62H, Alanine Aminotransferase (ALT/SGPT) 94H, Alkaline Phosphatase 76, Total Protein 7.2, Albumin 3.9 Microbiology 08/31/20 C. difficile GDH Antigen & Toxins - Final, Resulted 08/31/20 Stool Culture, Resulted Pending Assessment/Plan Assessment and Plan 1. Diarrhea/Colitis--admit and check C. Diff and stool studies, cover with flagyl 2. Dehydration--admit for IVFs 3. Refractory Anemia with Ringed Sideroblasts--Hgb 7.2 today but will repeat tomorrow and transfuse if less than 6.6, Dr. Hernández consulted 4. Hemoccult Positive Stools--patient is scheduled to see GI for colonoscopy at later date 5. History of Atrial Fibrillation--on cardizem 6. Thrombocytosis--resume hydroxyurea and Jadenu 7. COPD--MAT protocol 8. PVD with history of Right BKA--resume plavix Admission Diagnosis Admission Status: Observation LEEANN BURCH DO Aug 31, 2020 20:08
[2020-08-31] MEDS ORDERED: HYDROXYUREA 500 MG CAP (HYDREA) PO SCH (21:00)
[2020-08-31] MEDS: HYDROXYUREA 500 MG CAP (HYDREA) PO SCH (21:13)
--- NOTE | 2020-08-31 21:13 | CONSULTATION REPORT ---
DATE OF SERVICE: 08/31/2020 The patient is admitted to room 421. REFERRING AND PRIMARY PHYSICIAN: Leeann Gallegos DO IMPRESSION: 1. A 74-year-old male admitted to the hospital with recurrent diarrhea and worsening weakness. 2. 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 Initially, he was managed with hydroxyurea alone and developed nonhealing lower extremity ulcers and underwent a right below-knee amputation because of peripheral vascular disease. At this time, hydroxyurea was discontinued and started on anagrelide because of significant thrombocytosis. 3. The patient developed cardiac arrhythmias requiring hospitalization and anagrelide discontinued and he was restarted on Hydrea, which was not controlling the platelet counts by itself. Eventually, the anagrelide was weaned off completely and currently he is on hydroxyurea 500 mg b.i.d. with adequate control of platelets. 4. Worsening anemia requiring multiple transfusions after failure of erythropoietic stimulating agents. 5. Recent Hemoccult positive and patient was scheduled for outpatient GI workup including EGD and colonoscopy. 6. Secondary iron overload due to numerous transfusions and recently started on Jadenu as iron chelator. RECOMMENDATIONS: 1. Continue hydroxyurea 500 mg b.i.d. and monitor platelet count serially. 2. Continue Jadenu and the patient may take own medications. 3. Agree with stool studies to rule out Clostridium difficile colitis or other infections. 4. If the stool studies are negative for infection, he may need EGD and colonoscopy for further evaluation because of positive hemoccult test. 5. The patient has significant peripheral arterial disease and is on Plavix. Continue cautiously, but avoid other anticoagulants because of GI bleeding and anemia. 6. Because of symptomatic anemia, we have been transfusing him if the hemoglobin is less than 7. Monitor hemoglobin serially and transfuse as needed. 7. We will follow the patient with you. 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 He was initially managed with hydroxyurea, but developed lower extremity nonhealing ulcers. He was noted to have peripheral vascular disease and underwent a right below-knee amputation. Because of this, hydroxyurea was discontinued and he was started on anagrelide to control the thrombocytosis. Initially, he required platelet pheresis because of significant thrombocytosis and required higher doses of anagrelide which caused cardiac issues. Anagrelide was discontinued and he was restarted on hydroxyurea requiring both the agents to control the counts for a while. Most recently, he has been weaned off the anagrelide completely and is only on hydroxyurea 500 mg b.i.d. with good control of platelet counts. The patient has had symptomatic anemia requiring packed red blood cell transfusion for a long time. He did not respond to erythropoietic stimulating agents to reduce transfusion requirement. Recent Hemoccult study was positive, and he was scheduled for a GI workup on an outpatient basis to rule out GI bleeding. Since the last week, he has had significant watery diarrhea causing significantly increased fatigue. He was seen in the emergency room as well as in primary physician's office for this. As his symptoms are continuing to worsen, he is being admitted to the hospital for further evaluation and management. Hematology consult was requested for concurrent management. 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 He was diagnosed with a nonhealing right lower extremity ulcer with peripheral vascular disease and eventually required a right below-knee amputation. He had atrial fibrillation with a rapid ventricular response and cardiomyopathy while on treatment with anagrelide. He was initially on full anticoagulation to prevent for stroke prophylaxis. Because of the GI bleeding and worsening anemia, this was discontinued and he was continuing on Plavix. Because of frequent transfusions, he was diagnosed with a secondary iron overload and was started on iron chelation with Jadenu. SOCIAL HISTORY: The patient is and lives in [place], [place]. They have three children, two daughters and a son. One daughter and a son live in [place] and the other daughter lives in [place]. He has a [id number] history of tobacco use, but quit smoking in 2019. No significant alcohol or recreational drug use. FAMILY HISTORY: Only significant for his father who was diagnosed with multiple myeloma. No hematological problems or malignancies in the family that the patient knows of. PHYSICAL EXAMINATION: GENERAL: Today showed an elderly male, thin appearing, awake and oriented, weak appearing, but otherwise in no acute distress. VITAL SIGNS: Temperature was 36.6 degrees centigrade, pulse rate of 74, respirations 20, blood pressure 126/61, oxygen saturation 98% on room air. HEENT: Normocephalic, extraocular muscles intact, conjunctivae pale, oral mucosa moist. NECK: Supple with no JVD. No cervical, supraclavicular or axillary lymphadenopathy palpable. CHEST: Symmetrical. LUNGS: Fairly clear to auscultation without wheezes or rales. CARDIOVASCULAR: Regular with no murmurs or gallops heard. ABDOMEN: Soft with mild diffuse tenderness without guarding or rebound. No hepatosplenomegaly or other masses palpable. EXTREMITIES: Showed right below-knee amputation. No edema noted. NEUROLOGIC: Grossly intact without focal motor deficits. LABORATORY DATA: CBC done earlier today at [facility] had shown hemoglobin level of 7.2 and platelet count in the 350,000 range. Chemistry panel done at the time of admission showed normal electrolytes. BUN was 29 and creatinine 1.12 with GFR more than 60 mL per minute. AST was elevated at 62 and ALT 94 with the rest of the liver function studies within normal limits. Stools for C. difficile toxin was negative. Stool cultures are pending. The patient had CT scan of the abdomen and pelvis on 08/28/2020 during an ER visit. This showed abnormal wall thickening of the rectum and sigmoid colon as well as splenic flexure, likely related to nonspecific colitis. Infectious and inflammatory etiologies are favored. Cholelithiasis with gallbladder distention without findings of acute cholecystitis. Thank you for allowing me to participate in this patient's care. I will follow the patient with you and make appropriate recommendations. Job ID: [id number] DocumentID: [id number] Dictated Date: 08/31/2020 19:00:41 Construction Job Cost Estimator Date: 08/31/2020 21:13:14 Dictated By: ESHA MORIN MD [facility]
[2020-09-01] VITALS (11 sets, daily range): BP systolic 106–135; BP diastolic 53–63
[2020-09-01 06:03] LABS: MEAN PLATELET VOLUME 10.6 fL (9.0-12.2); WHITE BLOOD COUNT 8.3 10^3/uL (4.3-11.0)
[2020-09-01 06:05] LABS: HEMOGLOBIN 5.5 g/dL (13.3-17.7)
[2020-09-01 06:11] LABS: CHLORIDE 107 MMOL/L (98-107); POTASSIUM 4.1 MMOL/L (3.6-5.0); SODIUM 137 MMOL/L (135-145)
[2020-09-01 06:12] LABS: GLUCOSE 91 MG/DL (70-105)
[2020-09-01 06:14] LABS: CARBON DIOXIDE 19 MMOL/L (21-32)
[2020-09-01] MEDS ORDERED: NS IV 500 ML 500 ML IV SCH (06:15)
[2020-09-01 06:16] LABS: CREATININE SERUM 0.88 MG/DL (0.60-1.30); GFR ESTIMATED > 60
[2020-09-01 06:17] LABS: BUN/CREATININE RATIO 23
[2020-09-01] MEDS: metroNIDAZOLE 500MG/100ML IVPB 100 ML IV SCH ×3 (06:27→21:32)
[2020-09-01] MEDS: DEFERASIROX 360 MG TABLET PO SCH (06:28)
[2020-09-01] MEDS ORDERED: NS IV 500 ML 500 ML ONE (08:10)
--- NOTE | 2020-09-01 08:51 | Progress Note - Hospitalist ---
FILIPPO MORILLO MED STUDENT 09/01/20 0851: Subjective HPI/CC On Admission Date Seen by Provider: Sep 01, 2020 Time Seen by Provider: 08:30 Fwup colitis with dehydration and hx of refractory anemia Subjective/Events-last exam Awoke pt from sleep this am; seemed to be resting comfortably. Episodes of diarrhea have decreased. Pt states he had to go 3 times in the night. He denies abdominal and chest pain, shortness of breath, N/V. Hb 5.5 and will be given 1 unit PRBC today. Objective Exam Vital Signs Vital Signs Date Time Temp Pulse Resp B/P (MAP) Pulse Ox O2 Delivery O2 Flow Rate FiO2 09/01/20 07:34 36.5 67 20 127/53 (77) 92 Room Air 08/31/20 14:09 21 Capillary Refill : General Appearance: No Apparent Distress, WD/WN Respiratory: Chest Non Tender, Lungs Clear, Normal Breath Sounds, No Accessory Muscle Use, No Respiratory Distress Cardiovascular: Regular Rate, Rhythm, No Edema, Normal Peripheral Pulses Gastrointestinal: Normal Bowel Sounds, Non Tender, Soft Extremity: Normal Capillary Refill, Non Tender, No Pedal Edema Neurologic/Psychiatric: Alert, Oriented x3 Results/Procedures Lab Laboratory Tests 08/31/20 13:20 09/01/20 05:19 Patient resulted labs reviewed. Assessment/Plan Assessment and Plan Assess & Plan/Chief Complaint 1. Diarrhea/Colitis-- C. Diff negative and stool studies still pending, continue Flagyl 2. Dehydration-- continue IVFs 3. Refractory Anemia with Ringed Sideroblasts--Hgb 5.5 today and will transfuse 1 unit PRBC 4. Hemoccult Positive Stools--patient is scheduled to see GI for colonoscopy at later date. Discussed desire for colitis to heal before any scopes 5. History of Atrial Fibrillation--on Cardizem 6. Thrombocytosis--resume Hydroxyurea and Jadenu 7. COPD--MAT protocol 8. PVD with history of Right BKA--resume Plavix Diagnosis/Problems Diagnosis/Problems (1) Colitis (2) Refractory anemia with excess blasts (3) Diarrhea Status: Acute KEVIN BURCH S DO 09/01/201920: Supervisory-Addendum Brief Verification & Attestation Participated in pt care: history, physical Personally performed: exam, history, supervision of care Care discussed with: Medical Student Procedures: n/a Results interpretation: Verified all documentation Patient seen and evaluated and agree with above assessment and plan. FILIPPO MORILLO MED STUDENT Sep 01, 2020 08:51 KEVIN BURCH DO Sep 01, 2020 19:21
[2020-09-01] MEDS ORDERED: MYRBETRIQ 50 MG PO SCH (09:00)
[2020-09-01] MEDS ORDERED: FOLIC ACID 400 MCG PO SCH (09:00)
[2020-09-01] MEDS ORDERED: JADENU 360 MG PO SCH (09:00)
[2020-09-01] MEDS: FINASTERIDE (PROSCAR) 5 MG TAB PO SCH (09:42)
[2020-09-01] MEDS: NS W/KCL 20 MEQ/L 1,000 ML IV SCH ×3 (09:42→21:33)
[2020-09-01] MEDS: FOLIC ACID 1 MG TAB PO SCH (09:42)
[2020-09-01] MEDS: HYDROXYUREA 500 MG CAP (HYDREA) PO SCH ×2 (09:47→21:33)
[2020-09-01] MEDS: CLOPIDOGREL 75 MG (PLAVIX) TABLET PO SCH (09:48)
[2020-09-01] MEDS: CHOLESTYRAMINE 4 GM (QUESTRAN LITE, PREVALITE) PKT PO SCH (11:51)
[2020-09-01] MEDS: TAMSULOSIN 0.4 MG (FLOMAX) CAP PO SCH (18:42)
[2020-09-02] VITALS (7 sets, daily range): BP systolic 114–160; BP diastolic 47–68
[2020-09-02 05:59] LABS: MEAN PLATELET VOLUME 10.7 fL (9.0-12.2); WHITE BLOOD COUNT 7.2 10^3/uL (4.3-11.0)
[2020-09-02 06:05] LABS: HEMOGLOBIN 6.6 g/dL (13.3-17.7)
[2020-09-02 06:30] LABS: ALANINE AMINOTRANSFERASE 95 U/L (0-55); ALBUMIN 3.1 GM/DL (3.2-4.5); ALKALINE PHOSPHATASE 57 U/L (40-136); BILIRUBIN,TOTAL 0.2 MG/DL (0.1-1.0); BUN/CREATININE RATIO 14; CALCIUM 7.8 MG/DL (8.5-10.1); CARBON DIOXIDE 17 MMOL/L (21-32); CHLORIDE 113 MMOL/L (98-107); CREATININE SERUM 0.77 MG/DL (0.60-1.30); GFR ESTIMATED > 60; GLUCOSE 85 MG/DL (70-105); POTASSIUM 4.2 MMOL/L (3.6-5.0); SODIUM 139 MMOL/L (135-145); TOTAL PROTEIN 5.7 GM/DL (6.4-8.2)
[2020-09-02] MEDS ORDERED: NS IV 500 ML 500 ML IV SCH (06:30)
[2020-09-02] MEDS: NS W/KCL 20 MEQ/L 1,000 ML IV SCH ×3 (06:41→21:00)
[2020-09-02] MEDS: metroNIDAZOLE 500MG/100ML IVPB 100 ML IV SCH ×3 (06:41→21:00)
[2020-09-02] MEDS: DEFERASIROX 360 MG TABLET PO SCH (06:42)
[2020-09-02] MEDS: FINASTERIDE (PROSCAR) 5 MG TAB PO SCH (08:24)
[2020-09-02] MEDS: FOLIC ACID 1 MG TAB PO SCH (08:24)
[2020-09-02] MEDS: HYDROXYUREA 500 MG CAP (HYDREA) PO SCH ×2 (08:25→21:01)
[2020-09-02] MEDS: CLOPIDOGREL 75 MG (PLAVIX) TABLET PO SCH (08:25)
--- NOTE | 2020-09-02 08:26 | Progress Note - Hospitalist ---
FILIPPO MORILLO MED STUDENT 09/02/20 0826: Subjective HPI/CC On Admission Date Seen by Provider: Sep 02, 2020 Time Seen by Provider: 07:55 Fwup colitis with dehydration and hx of refractory anemia Subjective/Events-last exam Pt sleeping upon entering room. Hearing aid battery has and pt is unable to hear so communication via writing. He states that his will be in later today and may be able to bring a battery. He denies shortness of breath, N/V and reports 3 formed stools last night. He is currently receiving a second unit of blood. Objective Exam Vital Signs Vital Signs Date Time Temp Pulse Resp B/P (MAP) Pulse Ox O2 Delivery O2 Flow Rate FiO2 09/02/20 07:59 37.9 62 16 125/58 97 Room Air 08/31/20 14:09 21 Capillary Refill : General Appearance: No Apparent Distress, WD/WN Respiratory: Chest Non Tender, Lungs Clear, Normal Breath Sounds, No Accessory Muscle Use Cardiovascular: Regular Rate, Rhythm, No Edema, No Murmur, Normal Peripheral Pulses Gastrointestinal: Normal Bowel Sounds, Non Tender, Soft Extremity: Normal Capillary Refill, Non Tender, No Calf Tenderness, No Pedal Edema Neurologic/Psychiatric: Alert, Oriented x3 Results/Procedures Lab Laboratory Tests 09/02/20 05:04 Patient resulted labs reviewed. Assessment/Plan Assessment and Plan Assess & Plan/Chief Complaint 1. Diarrhea/Colitis-- C. Diff negative and culture pending, continue Flagyl, cholestyramine added yesterday seems to have helped form stools and decrease diarrhea; continue use 2. Dehydration-- continue IVFs 3. Refractory Anemia with Ringed Sideroblasts--Hgb 6.6 today and will transfuse additional 1 unit PRBC 4. Hemoccult Positive Stools--patient is scheduled to see GI for colonoscopy at later date. Discussed desire for colitis to heal before any scopes 5. History of Atrial Fibrillation--on Cardizem 6. Thrombocytosis--resume Hydroxyurea and Jadenu 7. COPD--MAT protocol 8. PVD with history of Right BKA--resume Plavix Diagnosis/Problems Diagnosis/Problems (1) Colitis (2) Refractory anemia with excess blasts (3) Diarrhea Status: Acute KEVIN BURCH DO 09/02/20 0853: Supervisory-Addendum Brief Verification & Attestation Participated in pt care: history, physical Personally performed: exam, supervision of care Care discussed with: Medical Student Procedures: n/a Results interpretation: Verified all documentation Patient seen and evaluated. Agree with above assessment and plan. Possibly home today or in AM depending on BMs FILIPPO MORILLO MED STUDENT Sep 02, 2020 08:26 KEVIN BURCH DO Sep 02, 2020 08:53
[2020-09-02] MEDS: CHOLESTYRAMINE 4 GM (QUESTRAN LITE, PREVALITE) PKT PO SCH (09:39)
[2020-09-02] MEDS: TAMSULOSIN 0.4 MG (FLOMAX) CAP PO SCH (17:32)
[2020-09-03] MEDS: NS W/KCL 20 MEQ/L 1,000 ML IV SCH ×2 (06:04→12:40)
[2020-09-03] MEDS: metroNIDAZOLE 500MG/100ML IVPB 100 ML IV SCH (06:04)
[2020-09-03] MEDS: DEFERASIROX 360 MG TABLET PO SCH (06:06)
[2020-09-03 07:30] VITALS: BP 121/58
[2020-09-03] MEDS: FOLIC ACID 1 MG TAB PO SCH (08:51)
[2020-09-03] MEDS: CLOPIDOGREL 75 MG (PLAVIX) TABLET PO SCH (08:51)
[2020-09-03] MEDS: HYDROXYUREA 500 MG CAP (HYDREA) PO SCH (08:51)
[2020-09-03] MEDS: FINASTERIDE (PROSCAR) 5 MG TAB PO SCH (08:51)
[2020-09-03] MEDS: CHOLESTYRAMINE 4 GM (QUESTRAN LITE, PREVALITE) PKT PO SCH (10:34)
[2020-09-03 11:55] VITALS: BP 108/58
[2020-09-03] MEDS ORDERED: METR-145 PO (12:42)
[2020-09-03] MEDS ORDERED: CHOL4PAC3 PO (12:42)
[2020-09-03] MEDS ORDERED: metroNIDAZOLE 500 MG (FLAGYL) TAB PO SCH (13:00)
--- NOTE | 2020-09-16 18:21 | Discharge Summary ---
Diagnosis/Chief Complaint Date of Admission Aug 31, 2020 at 12:50 Date of Discharge Sep 03, 2020 at 12:40 Discharge Date: Sep 03, 2020 Discharge Diagnosis 1. Diarrhea/Colitis-- C. Diff negative and culture pending, continue Flagyl, cholestyramine, improved 2. Dehydration--improved 3. Refractory Anemia with Ringed Sideroblasts--S/P transfusion 4. Hemoccult Positive Stools--patient is scheduled to see GI for colonoscopy at later date. Discussed desire for colitis to heal before any scopes 5. History of Atrial Fibrillation--on Cardizem 6. Thrombocytosis--resume Hydroxyurea and Jadenu 7. COPD--MAT protocol 8. PVD with history of Right BKA--resume Plavix Reason Hospital Visit This is a 74 year old male who presented to my office with a 5 day history of diarrhea. He had been seen 3 days prior in the emergency room and diagnosed with colitis. He was given IVFs and sent home but had ongoing diarrhea and weakness. Due to his complicated medical history and ongoing diarrhea with poor oral intake, it was decided to admit him for IVFs, flagyl and further evaluation and treatment. 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 Discharge Summary Hospital Course Was the Problem List Reviewed?: Yes Hospital Course This is a 74 year old male who presented to my office with a 5 day history of diarrhea. He had been seen 3 days prior in the emergency room and diagnosed with colitis. He was given IVFs and sent home but had ongoing diarrhea and weakness. Due to his complicated medical history and ongoing diarrhea with poor oral intake, it was decided to admit him for IVFs, flagyl and further evaluation and treatment. 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 He was admitted to the medical floor and given IVF rehydration. He was also given flagyl to cover for colitis. His C. Diff and stool studies were negative. He continued with loose stools so cholestyramine was added. His hemoglobin did drop to 6.6 after hydration so he was given 1 unit of pRBCs. We did discuss the need for colonoscopy but the patient and his family wanted him to see GI for this and preferred to wait a few weeks to let his colitis settle down before having a colonoscopy. By the time of discharge his diarrhea had improved, he was eating a regular diet and was feeling much better. I will see him in follow up next week and we will schedule him with GI to proceed with colonoscopy as an outpatient. Procedures None. Discharge Physical Examination Allergies: Coded Allergies: Sulfa (Sulfonamide Antibiotics) (Verified Allergy, Intermediate, 08/31/20) Tetanus Vaccines and Toxoid (Verified Allergy, Unknown, 11/17/18) General Appearance: Alert, Oriented X3, Cooperative, No Acute Distress Respiratory: Clear to Auscultation Cardiovascular: Regular Rate Abdominal: Normal Bowel Sounds, Soft, No Tenderness Psych/Mental Status: Mental Status NL, Mood NL Discharge Home Medications Reviewed and agree with Discharge Medication list on patient's Discharge Instruction sheet Instructions to Patient/Family Please see electronic discharge instructions given to patient. Clinical Quality Measures Admission Status Admission Status: Observation KEVIN BURCH DO Sep 16, 2020 18:21
== END 2020-09-03 12:40 | disposition home or self-care (01) ==
LOC: INTOOBSV 12:35 → 4TH 12:35 → UNDOADMOB 12:35 → 4TH 12:50 → UNDODISOB 09-03 13:15
PROVIDERS: ADMIT Family Medicine; ATTEND Family Medicine
DX: K52.9 Noninfective gastroenteritis and colitis, unspecified (principal); E86.0 Dehydration; D46.1 Refractory anemia with ring sideroblasts; D47.3 Essential (hemorrhagic) thrombocythemia; I10 Essential (primary) hypertension; R19.5 Other fecal abnormalities; I48.91 Unspecified atrial fibrillation; J44.9 Chronic obstructive pulmonary disease, unspecified; F17.210 Nicotine dependence, cigarettes, uncomplicated; I73.9 Peripheral vascular disease, unspecified; N40.0 Benign prostatic hyperplasia without lower urinary tract symptoms; N30.90 Cystitis, unspecified without hematuria; Z90.89 Acquired absence of other organs; Z89.511 Acquired absence of right leg below knee; Z88.2 Allergy status to sulfonamides; Z88.7 Allergy status to serum and vaccine; Z79.02 Long term (current) use of antithrombotics/antiplatelets; Z98.890 Other specified postprocedural states; Z79.899 Other long term (current) drug therapy
CPT/HCPCS: 36430; 80048; 80053 ×2; 83735; 84100; 85027 ×2; 86850; 86900; 86901; 86920; 87015; 87045; 87046; 87324; 87449; 87899; 94760; G0378; G0379; P9016 ×2; 36415; 99211

== ENCOUNTER 2020-11-30 12:58 | Outpatient (RCR) | payer MEDICARE ==
[2020-11-16 16:11] LABS: BILIRUBIN,URINE NEGATIVE (NEGATIVE); CLARITY,URINE CLOUDY; COLOR,URINE YELLOW; GLUCOSE, URINE (UA) NEGATIVE (NEGATIVE); KETONES,URINE NEGATIVE (NEGATIVE); LEUKOCYTE ESTERASE ,URINE 3+ (NEGATIVE); NITRITE,URINE POSITIVE (NEGATIVE); PH,URINE 8.5 (5-9); PROTEIN,URINE 2+ (NEGATIVE)
[2020-11-16 16:24] LABS: BACTERIA,URINE LARGE /HPF; RBC,URINE 0-2 /HPF; WBC,URINE TNTC /HPF
[~2020-11-30 12:58] MED LIST changes: +ACETAMINOPHEN 500 MG TAB (TYLENOL) CANCER CTR ONE; +CHOL4PAC3 PO; +DIGO125T3 PO; +DILT60TA PO; +HYDR500C2 PO; +METR-145 PO; +NS (IVPB) CANCER CENTER 250 ML ONE; +NS IV 500 ML (CANCER CENTER) 500 ML ONE; +[UNRECOGNIZED DRUG - CODE] PO
== END 2020-12-13 | disposition home or self-care (01) ==
LOC: ONC 12:58
PROVIDERS: ATTEND Internal Medicine Hematology & Oncology
DX: D46.9 Myelodysplastic syndrome, unspecified (principal); I73.9 Peripheral vascular disease, unspecified; I10 Essential (primary) hypertension; D47.3 Essential (hemorrhagic) thrombocythemia; E78.2 Mixed hyperlipidemia; I48.0 Paroxysmal atrial fibrillation; Z89.511 Acquired absence of right leg below knee; Z72.0 Tobacco use
CPT/HCPCS: 36430; 86850; 86900; 86901; 86920; P9016; 36415; 81000; 87077; 87088; 87186

== ENCOUNTER 2021-03-02 08:35 | Outpatient (RCR) | payer MEDICARE ==
[2021-02-05 11:18] LABS: BASOPHILS % (AUTO) 1 % (0-10); EOSINOPHILS # (AUTO) 0.1 10^3/uL (0.0-0.3); EOSINOPHILS % (AUTO) 3 % (0-10); LYMPHOCYTES # (AUTO) 0.6 10^3/uL (1.0-4.0); LYMPHOCYTES % (AUTO) 15 % (12-44); MEAN CORPUSCULAR HEMOGLOBIN 29 pg (25-34); MEAN CORPUSCULAR HGB CONC 33 g/dL (32-36); MEAN CORPUSCULAR VOLUME 90 fL (80-99); MEAN PLATELET VOLUME 10.9 fL (9.0-12.2); MONOCYTES # (AUTO) 0.5 10^3/uL (0.0-1.0); MONOCYTES % (AUTO) 14 % (0-12); NEUTROPHILS # (AUTO) 2.4 10^3/uL (1.8-7.8); NEUTROPHILS % (AUTO) 66 % (42-75); PLATELET COUNT 425 10^3/uL (130-400); WHITE BLOOD COUNT 3.7 10^3/uL (4.3-11.0)
[2021-02-05 11:21] LABS: HEMATOCRIT 20 % (40-54); HEMOGLOBIN 6.5 g/dL (13.3-17.7)
[2021-02-16 10:21] LABS: ABSOLUTE RETIC # 9 10e9/uL (24-90); BASOPHILS % (AUTO) 0 % (0-10); EOSINOPHILS # (AUTO) 0.1 10^3/uL (0.0-0.3); EOSINOPHILS % (AUTO) 2 % (0-10); LYMPHOCYTES # (AUTO) 0.6 10^3/uL (1.0-4.0); LYMPHOCYTES % (AUTO) 14 % (12-44); MEAN CORPUSCULAR HEMOGLOBIN 30 pg (25-34); MEAN CORPUSCULAR HGB CONC 32 g/dL (32-36); MEAN CORPUSCULAR VOLUME 93 fL (80-99); MEAN PLATELET VOLUME 10.3 fL (9.0-12.2); MONOCYTES # (AUTO) 0.5 10^3/uL (0.0-1.0); MONOCYTES % (AUTO) 11 % (0-12); NEUTROPHILS # (AUTO) 3.1 10^3/uL (1.8-7.8); NEUTROPHILS % (AUTO) 71 % (42-75); PLATELET COUNT 365 10^3/uL (130-400); RETICULOCYTE % 0.42 % (0.50-2.40); WHITE BLOOD COUNT 4.4 10^3/uL (4.3-11.0)
[2021-02-16 10:24] LABS: HEMATOCRIT 20 % (40-54); HEMOGLOBIN 6.3 g/dL (13.3-17.7)
[2021-02-16 10:40] LABS: ALBUMIN 3.7 GM/DL (3.2-4.5); BILIRUBIN,TOTAL 0.4 MG/DL (0.1-1.0); CREATININE SERUM 0.81 MG/DL (0.60-1.30); POTASSIUM 4.2 MMOL/L (3.6-5.0); TOTAL PROTEIN 6.6 GM/DL (6.4-8.2)
[~2021-03-02 08:35] MED LIST changes: -ACETAMINOPHEN 500 MG TAB (TYLENOL) CANCER CTR ONE
[2021-03-02] MEDS ORDERED: NS (IVPB) CANCER CENTER 250 ML ONE (09:09)
== END 2021-03-14 | disposition home or self-care (01) ==
LOC: ONC 08:35
PROVIDERS: ATTEND Internal Medicine Hematology & Oncology
DX: D46.9 Myelodysplastic syndrome, unspecified (principal); D47.3 Essential (hemorrhagic) thrombocythemia; I73.9 Peripheral vascular disease, unspecified; I10 Essential (primary) hypertension; E78.2 Mixed hyperlipidemia; I48.0 Paroxysmal atrial fibrillation; Z89.511 Acquired absence of right leg below knee; Z72.0 Tobacco use
CPT/HCPCS: 36430; 86850; 86900; 86901; 86920; P9016; 36415; 80053; 82728; 83615; 85025; 85045

== ENCOUNTER 2021-05-31 10:49 | Outpatient (RCR) | payer MEDICARE ==
[2021-05-17 11:31] LABS: ABSOLUTE RETIC # 6 10e9/uL (24-90); BASOPHILS % (AUTO) 1 % (0-10); EOSINOPHILS # (AUTO) 0.2 10^3/uL (0.0-0.3); EOSINOPHILS % (AUTO) 4 % (0-10); LYMPHOCYTES # (AUTO) 0.6 10^3/uL (1.0-4.0); LYMPHOCYTES % (AUTO) 16 % (12-44); MEAN CORPUSCULAR HEMOGLOBIN 30 pg (25-34); MEAN CORPUSCULAR HGB CONC 32 g/dL (32-36); MEAN CORPUSCULAR VOLUME 93 fL (80-99); MEAN PLATELET VOLUME 10.4 fL (9.0-12.2); MONOCYTES # (AUTO) 0.4 10^3/uL (0.0-1.0); MONOCYTES % (AUTO) 11 % (0-12); NEUTROPHILS # (AUTO) 2.3 10^3/uL (1.8-7.8); NEUTROPHILS % (AUTO) 67 % (42-75); PLATELET COUNT 487 10^3/uL (130-400); RETICULOCYTE % 0.32 % (0.50-2.40); WHITE BLOOD COUNT 3.4 10^3/uL (4.3-11.0)
[2021-05-17 11:34] LABS: HEMATOCRIT 19 % (40-54)
[2021-05-17 11:49] LABS: ALBUMIN 3.5 GM/DL (3.2-4.5); BILIRUBIN,TOTAL 0.4 MG/DL (0.1-1.0); CALCIUM 8.9 MG/DL (8.5-10.1); CREATININE SERUM 0.81 MG/DL (0.60-1.30); POTASSIUM 4.5 MMOL/L (3.6-5.0); TOTAL PROTEIN 6.5 GM/DL (6.4-8.2)
[2021-05-21 09:11] LABS: BASOPHILS % (AUTO) 1 % (0-10); EOSINOPHILS # (AUTO) 0.2 10^3/uL (0.0-0.3); EOSINOPHILS % (AUTO) 5 % (0-10); LYMPHOCYTES # (AUTO) 0.5 10^3/uL (1.0-4.0); LYMPHOCYTES % (AUTO) 15 % (12-44); MEAN CORPUSCULAR HEMOGLOBIN 30 pg (25-34); MEAN CORPUSCULAR HGB CONC 33 g/dL (32-36); MEAN CORPUSCULAR VOLUME 92 fL (80-99); MEAN PLATELET VOLUME 10.5 fL (9.0-12.2); MONOCYTES # (AUTO) 0.3 10^3/uL (0.0-1.0); MONOCYTES % (AUTO) 9 % (0-12); NEUTROPHILS # (AUTO) 2.5 10^3/uL (1.8-7.8); NEUTROPHILS % (AUTO) 69 % (42-75); PLATELET COUNT 486 10^3/uL (130-400); WHITE BLOOD COUNT 3.6 10^3/uL (4.3-11.0)
[2021-05-21 09:13] LABS: HEMATOCRIT 20 % (40-54); HEMOGLOBIN 6.4 g/dL (13.3-17.7)
[~2021-05-31 10:49] MED LIST changes: -LISI-729 PO; +LISI5TAB20 PO; +POTA-169 PO; -POTA20TA8 PO
[2021-05-31] MEDS ORDERED: NS (IVPB) CANCER CENTER 250 ML ONE (11:46)
== END 2021-06-04 | disposition home or self-care (01) ==
LOC: ONC 10:49
PROVIDERS: ATTEND Internal Medicine Hematology & Oncology
DX: D46.9 Myelodysplastic syndrome, unspecified (principal); D47.3 Essential (hemorrhagic) thrombocythemia; I73.9 Peripheral vascular disease, unspecified; I10 Essential (primary) hypertension; E78.2 Mixed hyperlipidemia; Z89.511 Acquired absence of right leg below knee; Z72.0 Tobacco use
CPT/HCPCS: 36430; 86850; 86900; 86901; 86920; P9016; 36415; 36591; 80053; 82274; 82728; 83615; 85025; 85045; 99213

== ENCOUNTER 2021-06-15 09:05 | Outpatient (RCR) | payer MEDICARE ==
[~2021-06-15 09:05] MED LIST changes: -NS (IVPB) CANCER CENTER 250 ML ONE
[2021-06-15] MEDS ORDERED: NS IV 500 ML (CANCER CENTER) 500 ML ONE (09:17)
== END 2021-06-21 10:58 | disposition home or self-care (01) ==
LOC: ONC 09:05
PROVIDERS: ATTEND Internal Medicine Hematology & Oncology
DX: D46.9 Myelodysplastic syndrome, unspecified (principal); D47.3 Essential (hemorrhagic) thrombocythemia; I10 Essential (primary) hypertension; E78.2 Mixed hyperlipidemia; Z89.511 Acquired absence of right leg below knee; Z72.0 Tobacco use
CPT/HCPCS: 36430; 86850; 86900; 86901; 86920

== ENCOUNTER → 2021-06-22 | Outpatient (CLI) | payer MEDICARE ==
[~2021-06-22] MED LIST changes: -NS IV 500 ML (CANCER CENTER) 500 ML ONE
--- NOTE | 2021-06-22 18:16 | Diagnostic Imaging Report ---
PROCEDURE: MR imaging left lower extremity without contrast. TECHNIQUE: Multiplanar, multisequence non contrast enhanced MR imaging of the left lower extremity was accomplished. INDICATION: Chronic nonhealing wound on the dorsal aspect of the forefoot. COMPARISON: None available. FINDINGS: Bones: No T2 hyperintense bone marrow edema or T1 hypointense marrow replacement that would indicate osteomyelitis. No osseous erosions or periosteal reaction. Soft tissues: Dorsal subcutaneous swelling and edema is present. By noncontrast imaging, there is no appreciable loculated/drainable collection. Severe fatty atrophy of the musculature of the foot is likely due to chronic denervation injury frequently associated with long-standing diabetes. No nodular thickening of the plantar fascia. IMPRESSION: 1. No osteomyelitis within the visualized aspects of the forefoot. 2. Dorsal subcutaneous swelling which could be due to cellulitis or bland edema. No drainable abscess by noncontrast imaging. Dictated by: Dictated on workstation # [id number]
== END ==
LOC: RAD 13:15
PROVIDERS: ATTEND Podiatrist Foot & Ankle Surgery
DX: L97.529 Non-pressure chronic ulcer of other part of left foot with unspecified severity (principal); M85.872 Other specified disorders of bone density and structure, left ankle and foot

== ENCOUNTER 2021-06-29 11:21 | Outpatient (RCR) | payer MEDICARE ==
[2021-06-25 09:44] LABS: BASOPHILS % (AUTO) 1 % (0-10); EOSINOPHILS # (AUTO) 0.1 10^3/uL (0.0-0.3); EOSINOPHILS % (AUTO) 4 % (0-10); HEMATOCRIT 22 % (40-54); HEMOGLOBIN 7.3 g/dL (13.3-17.7); LYMPHOCYTES # (AUTO) 0.5 10^3/uL (1.0-4.0); LYMPHOCYTES % (AUTO) 15 % (12-44); MEAN CORPUSCULAR HEMOGLOBIN 31 pg (25-34); MEAN CORPUSCULAR HGB CONC 33 g/dL (32-36); MEAN CORPUSCULAR VOLUME 94 fL (80-99); MEAN PLATELET VOLUME 10.3 fL (9.0-12.2); MONOCYTES # (AUTO) 0.4 10^3/uL (0.0-1.0); MONOCYTES % (AUTO) 10 % (0-12); NEUTROPHILS # (AUTO) 2.4 10^3/uL (1.8-7.8); NEUTROPHILS % (AUTO) 69 % (42-75); PLATELET COUNT 375 10^3/uL (130-400); WHITE BLOOD COUNT 3.5 10^3/uL (4.3-11.0)
[2021-06-25 10:01] LABS: ALBUMIN 3.6 GM/DL (3.2-4.5); BILIRUBIN,TOTAL 0.4 MG/DL (0.1-1.0); CALCIUM 8.7 MG/DL (8.5-10.1); CREATININE SERUM 0.79 MG/DL (0.60-1.30); POTASSIUM 3.7 MMOL/L (3.6-5.0); TOTAL PROTEIN 6.9 GM/DL (6.4-8.2)
[~2021-06-29 11:21] MED LIST changes: +NS IV 500 ML (CANCER CENTER) 500 ML ONE
[2021-06-29 11:40] LABS: BASOPHILS % (AUTO) 0 % (0-10); EOSINOPHILS # (AUTO) 0.1 10^3/uL (0.0-0.3); EOSINOPHILS % (AUTO) 3 % (0-10); LYMPHOCYTES # (AUTO) 0.5 10^3/uL (1.0-4.0); LYMPHOCYTES % (AUTO) 14 % (12-44); MEAN CORPUSCULAR HEMOGLOBIN 30 pg (25-34); MEAN CORPUSCULAR HGB CONC 33 g/dL (32-36); MEAN CORPUSCULAR VOLUME 93 fL (80-99); MEAN PLATELET VOLUME 10.4 fL (9.0-12.2); MONOCYTES # (AUTO) 0.5 10^3/uL (0.0-1.0); MONOCYTES % (AUTO) 14 % (0-12); NEUTROPHILS # (AUTO) 2.5 10^3/uL (1.8-7.8); NEUTROPHILS % (AUTO) 66 % (42-75); PLATELET COUNT 428 10^3/uL (130-400); WHITE BLOOD COUNT 3.8 10^3/uL (4.3-11.0)
[2021-06-29 11:41] LABS: HEMATOCRIT 20 % (40-54); HEMOGLOBIN 6.5 g/dL (13.3-17.7)
[2021-06-29] MEDS ORDERED: NS IV 500 ML (CANCER CENTER) 500 ML ONE (11:47)
== END 2021-07-01 11:17 | disposition home or self-care (01) ==
LOC: ONC 11:21
PROVIDERS: ATTEND Internal Medicine Hematology & Oncology
DX: D46.9 Myelodysplastic syndrome, unspecified (principal); D47.3 Essential (hemorrhagic) thrombocythemia; I10 Essential (primary) hypertension; E78.2 Mixed hyperlipidemia; Z89.511 Acquired absence of right leg below knee; Z72.0 Tobacco use
CPT/HCPCS: 36415; 36430; 80053; 82728; 83540; 83550; 85025; 86850; 86900; 86901; 86920

== ENCOUNTER 2021-07-21 09:15 | Outpatient (CLI) | payer MEDICARE ==
[~2021-07-21] VITALS: Ht 188 cm; Wt 76.4 kg
[~2021-07-21 09:15] MED LIST changes: -NS IV 500 ML (CANCER CENTER) 500 ML ONE
[2021-07-21 09:23] VITALS: BP 136/49
[2021-07-21] MEDS ORDERED: NS IV 500 ML 500 ML IV SCH ×2 (09:30→10:00)
[2021-07-21 10:39] VITALS: BP 136/49
[2021-07-21 10:55] VITALS: BP 128/52
[2021-07-21 12:55] VITALS: BP 131/54
== END 2021-07-21 13:35 | disposition home or self-care (01) ==
LOC: SDC 09:15
PROVIDERS: ATTEND Internal Medicine Hematology & Oncology
DX: D46.9 Myelodysplastic syndrome, unspecified (principal)
CPT/HCPCS: 36430; 86850; 86900; 86901; 86920

== ENCOUNTER 2021-07-27 09:31 | Outpatient (RCR) | payer MEDICARE ==
[2021-07-06 10:12] LABS: BASOPHILS % (AUTO) 0 % (0-10); EOSINOPHILS # (AUTO) 0.1 10^3/uL (0.0-0.3); EOSINOPHILS % (AUTO) 3 % (0-10); HEMATOCRIT 21 % (40-54); LYMPHOCYTES # (AUTO) 0.5 10^3/uL (1.0-4.0); LYMPHOCYTES % (AUTO) 14 % (12-44); MEAN CORPUSCULAR HEMOGLOBIN 30 pg (25-34); MEAN CORPUSCULAR HGB CONC 32 g/dL (32-36); MEAN CORPUSCULAR VOLUME 94 fL (80-99); MEAN PLATELET VOLUME 10.3 fL (9.0-12.2); MONOCYTES # (AUTO) 0.4 10^3/uL (0.0-1.0); MONOCYTES % (AUTO) 10 % (0-12); NEUTROPHILS # (AUTO) 2.7 10^3/uL (1.8-7.8); NEUTROPHILS % (AUTO) 72 % (42-75); PLATELET COUNT 473 10^3/uL (130-400); WHITE BLOOD COUNT 3.8 10^3/uL (4.3-11.0)
[2021-07-06 10:13] LABS: HEMOGLOBIN 6.7 g/dL (13.3-17.7)
[2021-07-09 09:51] LABS: BASOPHILS % (AUTO) 0 % (0-10); EOSINOPHILS # (AUTO) 0.1 10^3/uL (0.0-0.3); EOSINOPHILS % (AUTO) 2 % (0-10); LYMPHOCYTES # (AUTO) 0.6 10^3/uL (1.0-4.0); LYMPHOCYTES % (AUTO) 18 % (12-44); MEAN CORPUSCULAR HEMOGLOBIN 30 pg (25-34); MEAN CORPUSCULAR HGB CONC 32 g/dL (32-36); MEAN CORPUSCULAR VOLUME 95 fL (80-99); MEAN PLATELET VOLUME 10.6 fL (9.0-12.2); MONOCYTES # (AUTO) 0.5 10^3/uL (0.0-1.0); MONOCYTES % (AUTO) 15 % (0-12); NEUTROPHILS % (AUTO) 63 % (42-75); PLATELET COUNT 494 10^3/uL (130-400); WHITE BLOOD COUNT 3.2 10^3/uL (4.3-11.0)
[2021-07-09 09:54] LABS: HEMATOCRIT 19 % (40-54); HEMOGLOBIN 6.1 g/dL (13.3-17.7)
[2021-07-13 08:47] LABS: BASOPHILS % (AUTO) 1 % (0-10); EOSINOPHILS # (AUTO) 0.1 10^3/uL (0.0-0.3); EOSINOPHILS % (AUTO) 2 % (0-10); HEMATOCRIT 21 % (40-54); LYMPHOCYTES # (AUTO) 0.5 10^3/uL (1.0-4.0); LYMPHOCYTES % (AUTO) 16 % (12-44); MEAN CORPUSCULAR HEMOGLOBIN 30 pg (25-34); MEAN CORPUSCULAR HGB CONC 32 g/dL (32-36); MEAN CORPUSCULAR VOLUME 94 fL (80-99); MEAN PLATELET VOLUME 10.4 fL (9.0-12.2); MONOCYTES # (AUTO) 0.5 10^3/uL (0.0-1.0); MONOCYTES % (AUTO) 16 % (0-12); NEUTROPHILS # (AUTO) 2.1 10^3/uL (1.8-7.8); NEUTROPHILS % (AUTO) 62 % (42-75); PLATELET COUNT 416 10^3/uL (130-400); WHITE BLOOD COUNT 3.4 10^3/uL (4.3-11.0)
[2021-07-13 08:48] LABS: HEMOGLOBIN 6.7 g/dL (13.3-17.7)
[2021-07-19 09:27] LABS: BASOPHILS % (AUTO) 1 % (0-10); EOSINOPHILS # (AUTO) 0.1 10^3/uL (0.0-0.3); EOSINOPHILS % (AUTO) 4 % (0-10); HEMATOCRIT 22 % (40-54); LYMPHOCYTES # (AUTO) 0.6 10^3/uL (1.0-4.0); LYMPHOCYTES % (AUTO) 20 % (12-44); MEAN CORPUSCULAR HEMOGLOBIN 30 pg (25-34); MEAN CORPUSCULAR HGB CONC 32 g/dL (32-36); MEAN CORPUSCULAR VOLUME 93 fL (80-99); MEAN PLATELET VOLUME 10.2 fL (9.0-12.2); MONOCYTES # (AUTO) 0.5 10^3/uL (0.0-1.0); MONOCYTES % (AUTO) 16 % (0-12); NEUTROPHILS # (AUTO) 1.8 10^3/uL (1.8-7.8); NEUTROPHILS % (AUTO) 58 % (42-75); PLATELET COUNT 354 10^3/uL (130-400); WHITE BLOOD COUNT 3.1 10^3/uL (4.3-11.0)
[2021-07-27 09:56] LABS: BASOPHILS % (AUTO) 1 % (0-10); EOSINOPHILS # (AUTO) 0.1 10^3/uL (0.0-0.3); EOSINOPHILS % (AUTO) 2 % (0-10); HEMATOCRIT 21 % (40-54); LYMPHOCYTES # (AUTO) 0.6 10^3/uL (1.0-4.0); LYMPHOCYTES % (AUTO) 17 % (12-44); MEAN CORPUSCULAR HEMOGLOBIN 30 pg (25-34); MEAN CORPUSCULAR HGB CONC 32 g/dL (32-36); MEAN CORPUSCULAR VOLUME 93 fL (80-99); MEAN PLATELET VOLUME 10.6 fL (9.0-12.2); MONOCYTES # (AUTO) 0.5 10^3/uL (0.0-1.0); MONOCYTES % (AUTO) 15 % (0-12); NEUTROPHILS # (AUTO) 2.1 10^3/uL (1.8-7.8); NEUTROPHILS % (AUTO) 63 % (42-75); PLATELET COUNT 303 10^3/uL (130-400); WHITE BLOOD COUNT 3.4 10^3/uL (4.3-11.0)
[2021-07-27 10:07] LABS: HEMOGLOBIN 6.8 g/dL (13.3-17.7)
== END 2021-08-02 | disposition home or self-care (01) ==
LOC: ONC 09:31
PROVIDERS: ATTEND Internal Medicine Hematology & Oncology
DX: D46.9 Myelodysplastic syndrome, unspecified (principal); D47.3 Essential (hemorrhagic) thrombocythemia; I10 Essential (primary) hypertension; E78.2 Mixed hyperlipidemia; Z89.511 Acquired absence of right leg below knee; Z72.0 Tobacco use
CPT/HCPCS: 36415; 36430; 82668; 85025; 86850; 86900; 86901; 86920; 99213

== ENCOUNTER 2021-07-28 08:51 | Outpatient (CLI) | payer MEDICARE ==
[~2021-07-28] VITALS: Ht 188 cm; Wt 81.0 kg
[2021-07-28] MEDS ORDERED: NS IV 500 ML 500 ML ONE (09:10)
[2021-07-28 09:24] VITALS: BP 132/55
[2021-07-28] MEDS ORDERED: NS IV 500 ML 500 ML IV SCH (09:30)
[2021-07-28 09:52] VITALS: BP 134/53
[2021-07-28 10:07] VITALS: BP 143/54
[2021-07-28 11:58] VITALS: BP 151/62
== END 2021-07-28 12:05 ==
LOC: SDC 08:51
PROVIDERS: ATTEND Internal Medicine Hematology & Oncology
DX: D64.9 Anemia, unspecified (principal)
CPT/HCPCS: 36430; 86850; 86900; 86901; 86920

== ENCOUNTER 2021-08-02 11:15 | Day surgery (SDC) | payer MEDICARE ==
[2021-08-02 10:20] VITALS: BP 151/63
[2021-08-02 11:06] LABS: ABSOLUTE RETIC # 6 10e9/uL (24-90); BASOPHILS % (AUTO) 0 % (0-10); EOSINOPHILS # (AUTO) 0.1 10^3/uL (0.0-0.3); EOSINOPHILS % (AUTO) 2 % (0-10); HEMATOCRIT 21 % (40-54); LYMPHOCYTES # (AUTO) 0.5 10^3/uL (1.0-4.0); LYMPHOCYTES % (AUTO) 12 % (12-44); MEAN CORPUSCULAR HEMOGLOBIN 30 pg (25-34); MEAN CORPUSCULAR HGB CONC 32 g/dL (32-36); MEAN CORPUSCULAR VOLUME 93 fL (80-99); MEAN PLATELET VOLUME 10.4 fL (9.0-12.2); MONOCYTES # (AUTO) 0.6 10^3/uL (0.0-1.0); MONOCYTES % (AUTO) 14 % (0-12); NEUTROPHILS # (AUTO) 3.1 10^3/uL (1.8-7.8); NEUTROPHILS % (AUTO) 70 % (42-75); PLATELET COUNT 333 10^3/uL (130-400); RETICULOCYTE % 0.28 % (0.50-2.40); WHITE BLOOD COUNT 4.4 10^3/uL (4.3-11.0)
[~2021-08-02 11:15] MED LIST changes: +LIDOCAINE 1% INJ 20 ML VIAL INJ ONE; +LIDOCAINE 1% INJ 50 ML (XYLOCAINE) VIAL ONE; +MIDAZOLAM 2 MG/2 ML (VERSED) VIAL INJ ONE; +NS IV 1000 ML 1,000 ML IV SCH; +fentaNYL INJ 100 MCG/2 ML AMP INJ ONE
[2021-08-02 11:16] LABS: HEMOGLOBIN 6.7 g/dL (13.3-17.7)
[2021-08-02 11:28] LABS: INR 1.3 (0.8-1.4); PROTHROMBIN TIME PATIENT 16.3 SEC (12.2-14.7)
[2021-08-02 11:39] LABS: BAND NEUTROPHILS 2 %; EOSINOPHILS % (MANUAL) 6 %; LYMPHOCYTES % (MANUAL) 9 %; MONOCYTES % (MANUAL) 10 %; NEUTROPHILS % (MANUAL) 73 %
[2021-08-02 11:40] LABS: PLATELET ESTIMATE ADEQUATE; POIKILOCYTOSIS SLIGHT
[2021-08-02 11:41] LABS: ANISOCYTOSIS SLIGHT; MICROCYTOSIS SLIGHT
[2021-08-02 12:20] VITALS: BP 173/70
[2021-08-02 12:25] VITALS: BP 172/68
[2021-08-02 12:30] VITALS: BP 146/62
[2021-08-02 12:35] VITALS: BP 167/63
--- NOTE | 2021-08-02 12:57 | Pre-Op Note & Conscious Sedat ---
Pre-Operative Progress Note H&P Reviewed The H&P was reviewed, patient examined and no changes noted. Date H&P Reviewed: Aug 02, 2021 Time H&P Reviewed: 12:00 Pre-Op Diagnosis: myelodyplastic syndrome Conscious Sedation Pre-Proced Time 12:00 ASA Score 2 For ASA 3 and 4: Consider anesthesia and medical clearance. Also, for patients with a history of failed moderate sedation consider anesthesia. Airway Lungs Heart ASA score ASA 1: a normal healthy patient ASA 2: a patient with a mild systemic disease (mid diabetes, controlled hyp ertension, obesity ASA 3: a patient with a severe systemic disease that limits activity (angina, COPD, prior Myocardial infarction) ASA 4: a patient with an incapacitating disease that is a constant threat to life (CHF, renal failure) ASA 5: a moribund patient not expected to survive 24 hrs. (ruptured aneurysm) ASA 6: a declared brain- patient whose organs are being harvested. For emergent operations, add the letter E after the classification Mallampati Classification Grade 2 Sedation Plan Analgesia, Amnesia, Plan communicated to team members, Discussed options with patient/fam, Discussed risks with patient/fam The patient is an appropriate candidate to undergo the planned procedure, sed ation, and anesthesia. The patient immediately re-assessed prior to indication. KIRILL JORDAN MD Aug 02, 2021 12:57
[2021-08-02] MEDS ORDERED: HYDROcodone/APAP 5 MG/325 MG (LORTAB) TAB PO PRN (13:15)
--- NOTE | 2021-08-02 13:31 | Diagnostic Imaging Report ---
INDICATION: Myelodysplastic syndrome. Patient presents for CT-guided bone marrow aspiration and biopsy. Patient was brought to the CT suite and placed on table in the prone position. Axial imaging through the pelvis was performed to evaluate appropriate entry site. Low back was prepped and draped in the usual sterile fashion. A small amount of 1% lidocaine was utilized for local anesthesia. Procedure was performed utilizing conscious sedation with radiology nursing and constant patient monitoring. Patient was given a total of 75 mcg of fentanyl intravenously and 1 mg of Versed intravenously. Total procedure time was 10 minutes. Bone marrow needle was advanced and placed with its tip along the posterior cortex of the right iliac bone. The needle was advanced through the cortex utilizing a bone marrow drill. Two bone marrow aspirates were then obtained. Next, the bone marrow drill was utilized to obtain a bone marrow core sample. Needle was removed, and hemostasis was obtained using manual compression. Patient tolerated the procedure well and left the department in stable condition. IMPRESSION: Successful CT-guided bone marrow aspiration and core biopsy utilizing conscious sedation. Pathology results are currently pending. Dictated by: Dictated on workstation # [id number]
== END 2021-08-02 15:10 | disposition home or self-care (01) ==
LOC: RAD 11:15
PROVIDERS: ATTEND Internal Medicine Hematology & Oncology
DX: D64.9 Anemia, unspecified (principal)
CPT/HCPCS: 36415; 38222; 77012; 85007; 85027; 85045; 85055; 85610; 85730; 99156

== ENCOUNTER 2021-08-05 08:37 | Outpatient (CLI) | payer MEDICARE ==
[~2021-08-05] VITALS: Ht 188 cm; Wt 81.0 kg
[~2021-08-05 08:37] MED LIST changes: -LIDOCAINE 1% INJ 20 ML VIAL INJ ONE; -LIDOCAINE 1% INJ 50 ML (XYLOCAINE) VIAL ONE; -MIDAZOLAM 2 MG/2 ML (VERSED) VIAL INJ ONE; -NS IV 1000 ML 1,000 ML IV SCH; -fentaNYL INJ 100 MCG/2 ML AMP INJ ONE
[2021-08-05 08:40] VITALS: BP 123/51
[2021-08-05] MEDS ORDERED: NS IV 500 ML 500 ML IV SCH (09:00)
[2021-08-05 10:20] VITALS: BP 123/51
[2021-08-05 10:35] VITALS: BP 128/46
[2021-08-05 12:29] VITALS: BP 141/57
== END 2021-08-05 12:55 ==
LOC: SDC 08:37
PROVIDERS: ATTEND Internal Medicine Hematology & Oncology
DX: D46.9 Myelodysplastic syndrome, unspecified (principal)
CPT/HCPCS: 36415; 36430; 85014; 85018; 86850; 86900; 86901; 86920

== ENCOUNTER 2021-08-11 10:06 | Outpatient (CLI) | payer MEDICARE ==
[~2021-08-11] VITALS: Ht 188 cm; Wt 81.0 kg
[2021-08-11] MEDS ORDERED: NS IV 500 ML 500 ML ONE (10:18)
[2021-08-11] MEDS ORDERED: NS IV 500 ML 500 ML IV ONE (10:30)
[2021-08-11 10:46] VITALS: BP 154/53
== END 2021-08-11 13:15 ==
LOC: SDC 10:06
PROVIDERS: ATTEND Internal Medicine Hematology & Oncology
DX: D46.9 Myelodysplastic syndrome, unspecified (principal)
CPT/HCPCS: 36430

== ENCOUNTER 2021-09-01 12:42 | Outpatient (RCR) | payer MEDICARE ==
[2021-08-10 10:20] LABS: BASOPHILS % (AUTO) 0 % (0-10); EOSINOPHILS # (AUTO) 0.1 10^3/uL (0.0-0.3); EOSINOPHILS % (AUTO) 3 % (0-10); HEMATOCRIT 22 % (40-54); LYMPHOCYTES # (AUTO) 0.6 10^3/uL (1.0-4.0); LYMPHOCYTES % (AUTO) 15 % (12-44); MEAN CORPUSCULAR HEMOGLOBIN 29 pg (25-34); MEAN CORPUSCULAR HGB CONC 32 g/dL (32-36); MEAN CORPUSCULAR VOLUME 92 fL (80-99); MEAN PLATELET VOLUME 10.5 fL (9.0-12.2); MONOCYTES # (AUTO) 0.5 10^3/uL (0.0-1.0); MONOCYTES % (AUTO) 13 % (0-12); NEUTROPHILS # (AUTO) 2.7 10^3/uL (1.8-7.8); NEUTROPHILS % (AUTO) 68 % (42-75); PLATELET COUNT 401 10^3/uL (130-400); WHITE BLOOD COUNT 3.9 10^3/uL (4.3-11.0)
[2021-08-11 10:41] VITALS: BP 154/53
[2021-08-11 10:56] VITALS: BP 126/48
[2021-08-11 13:03] VITALS: BP 156/61
[2021-08-17 14:29] LABS: BASOPHILS % (AUTO) 0 % (0-10); EOSINOPHILS # (AUTO) 0.1 10^3/uL (0.0-0.3); EOSINOPHILS % (AUTO) 3 % (0-10); HEMATOCRIT 21 % (40-54); LYMPHOCYTES # (AUTO) 0.6 10^3/uL (1.0-4.0); LYMPHOCYTES % (AUTO) 17 % (12-44); MEAN CORPUSCULAR HEMOGLOBIN 30 pg (25-34); MEAN CORPUSCULAR HGB CONC 33 g/dL (32-36); MEAN CORPUSCULAR VOLUME 92 fL (80-99); MEAN PLATELET VOLUME 10.6 fL (9.0-12.2); MONOCYTES # (AUTO) 0.4 10^3/uL (0.0-1.0); MONOCYTES % (AUTO) 12 % (0-12); NEUTROPHILS # (AUTO) 2.2 10^3/uL (1.8-7.8); NEUTROPHILS % (AUTO) 67 % (42-75); PLATELET COUNT 257 10^3/uL (130-400); WHITE BLOOD COUNT 3.3 10^3/uL (4.3-11.0)
[2021-08-17 14:31] LABS: HEMOGLOBIN 6.8 g/dL (13.3-17.7)
[2021-08-24 10:11] LABS: BASOPHILS % (AUTO) 1 % (0-10); EOSINOPHILS # (AUTO) 0.1 10^3/uL (0.0-0.3); EOSINOPHILS % (AUTO) 2 % (0-10); HEMATOCRIT 23 % (40-54); HEMOGLOBIN 7.4 g/dL (13.3-17.7); LYMPHOCYTES # (AUTO) 0.4 10^3/uL (1.0-4.0); LYMPHOCYTES % (AUTO) 12 % (12-44); MEAN CORPUSCULAR HEMOGLOBIN 30 pg (25-34); MEAN CORPUSCULAR HGB CONC 33 g/dL (32-36); MEAN CORPUSCULAR VOLUME 90 fL (80-99); MEAN PLATELET VOLUME 11.2 fL (9.0-12.2); MONOCYTES # (AUTO) 0.4 10^3/uL (0.0-1.0); MONOCYTES % (AUTO) 13 % (0-12); NEUTROPHILS # (AUTO) 2.5 10^3/uL (1.8-7.8); NEUTROPHILS % (AUTO) 71 % (42-75); PLATELET COUNT 292 10^3/uL (130-400); WHITE BLOOD COUNT 3.5 10^3/uL (4.3-11.0)
[2021-08-31 10:01] LABS: BASOPHILS % (AUTO) 0 % (0-10); EOSINOPHILS # (AUTO) 0.1 10^3/uL (0.0-0.3); EOSINOPHILS % (AUTO) 1 % (0-10); LYMPHOCYTES # (AUTO) 0.4 10^3/uL (1.0-4.0); LYMPHOCYTES % (AUTO) 9 % (12-44); MEAN CORPUSCULAR HEMOGLOBIN 29 pg (25-34); MEAN CORPUSCULAR HGB CONC 32 g/dL (32-36); MEAN CORPUSCULAR VOLUME 89 fL (80-99); MEAN PLATELET VOLUME 10.8 fL (9.0-12.2); MONOCYTES # (AUTO) 0.8 10^3/uL (0.0-1.0); MONOCYTES % (AUTO) 16 % (0-12); NEUTROPHILS # (AUTO) 3.5 10^3/uL (1.8-7.8); NEUTROPHILS % (AUTO) 71 % (42-75); PLATELET COUNT 329 10^3/uL (130-400)
[2021-08-31 10:10] LABS: HEMATOCRIT 19 % (40-54); HEMOGLOBIN 6.2 g/dL (13.3-17.7)
[~2021-09-01 12:42] MED LIST changes: +NS IV 500 ML (CANCER CENTER) 500 ML ONE
[2021-09-01] MEDS ORDERED: NS IV 500 ML 500 ML ONE (14:16)
== END 2021-09-02 | disposition home or self-care (01) ==
LOC: ONC 12:42
PROVIDERS: ATTEND Internal Medicine Hematology & Oncology
DX: D46.9 Myelodysplastic syndrome, unspecified (principal); D47.3 Essential (hemorrhagic) thrombocythemia; I10 Essential (primary) hypertension; E78.2 Mixed hyperlipidemia; Z89.511 Acquired absence of right leg below knee; Z72.0 Tobacco use
CPT/HCPCS: 36415; 36430; 82728; 83540; 83550; 85025; 86850; 86900; 86901; 86920; 96360; 99213

== ENCOUNTER 2021-09-29 09:20 | Outpatient (RCR) | payer MEDICARE ==
[2021-08-11 13:03] VITALS: BP 156/61
[2021-09-08 09:07] LABS: BASOPHILS % (AUTO) 0 % (0-10); EOSINOPHILS # (AUTO) 0.1 10^3/uL (0.0-0.3); EOSINOPHILS % (AUTO) 2 % (0-10); LYMPHOCYTES # (AUTO) 0.6 10^3/uL (1.0-4.0); LYMPHOCYTES % (AUTO) 12 % (12-44); MEAN CORPUSCULAR HEMOGLOBIN 29 pg (25-34); MEAN CORPUSCULAR HGB CONC 33 g/dL (32-36); MEAN CORPUSCULAR VOLUME 89 fL (80-99); MEAN PLATELET VOLUME 10.7 fL (9.0-12.2); MONOCYTES # (AUTO) 0.7 10^3/uL (0.0-1.0); MONOCYTES % (AUTO) 15 % (0-12); NEUTROPHILS # (AUTO) 2.9 10^3/uL (1.8-7.8); NEUTROPHILS % (AUTO) 65 % (42-75); PLATELET COUNT 390 10^3/uL (130-400); WHITE BLOOD COUNT 4.5 10^3/uL (4.3-11.0)
[2021-09-08 09:12] LABS: HEMATOCRIT 20 % (40-54); HEMOGLOBIN 6.5 g/dL (13.3-17.7)
[2021-09-15 09:53] LABS: BASOPHILS % (AUTO) 1 % (0-10); EOSINOPHILS # (AUTO) 0.1 10^3/uL (0.0-0.3); EOSINOPHILS % (AUTO) 2 % (0-10); HEMATOCRIT 22 % (40-54); HEMOGLOBIN 7.3 g/dL (13.3-17.7); LYMPHOCYTES # (AUTO) 0.6 10^3/uL (1.0-4.0); LYMPHOCYTES % (AUTO) 13 % (12-44); MEAN CORPUSCULAR HEMOGLOBIN 29 pg (25-34); MEAN CORPUSCULAR HGB CONC 33 g/dL (32-36); MEAN CORPUSCULAR VOLUME 88 fL (80-99); MEAN PLATELET VOLUME 10.6 fL (9.0-12.2); MONOCYTES # (AUTO) 0.7 10^3/uL (0.0-1.0); MONOCYTES % (AUTO) 16 % (0-12); NEUTROPHILS % (AUTO) 64 % (42-75); PLATELET COUNT 305 10^3/uL (130-400); WHITE BLOOD COUNT 4.6 10^3/uL (4.3-11.0)
[2021-09-22 09:35] LABS: BASOPHILS % (AUTO) 0 % (0-10); EOSINOPHILS # (AUTO) 0.1 10^3/uL (0.0-0.3); EOSINOPHILS % (AUTO) 2 % (0-10); LYMPHOCYTES # (AUTO) 0.7 10^3/uL (1.0-4.0); LYMPHOCYTES % (AUTO) 15 % (12-44); MEAN CORPUSCULAR HEMOGLOBIN 29 pg (25-34); MEAN CORPUSCULAR HGB CONC 33 g/dL (32-36); MEAN CORPUSCULAR VOLUME 88 fL (80-99); MEAN PLATELET VOLUME 10.7 fL (9.0-12.2); MONOCYTES # (AUTO) 0.6 10^3/uL (0.0-1.0); MONOCYTES % (AUTO) 12 % (0-12); NEUTROPHILS % (AUTO) 67 % (42-75); PLATELET COUNT 403 10^3/uL (130-400); WHITE BLOOD COUNT 4.6 10^3/uL (4.3-11.0)
[2021-09-22 09:44] LABS: HEMATOCRIT 18 % (40-54); HEMOGLOBIN 6.1 g/dL (13.3-17.7)
[~2021-09-29 09:20] MED LIST changes: -NS IV 500 ML (CANCER CENTER) 500 ML ONE; +NS IV 500 ML 500 ML ONE
[2021-09-29 09:45] LABS: BASOPHILS % (AUTO) 0 % (0-10); EOSINOPHILS # (AUTO) 0.1 10^3/uL (0.0-0.3); EOSINOPHILS % (AUTO) 2 % (0-10); LYMPHOCYTES # (AUTO) 0.6 10^3/uL (1.0-4.0); LYMPHOCYTES % (AUTO) 12 % (12-44); MEAN CORPUSCULAR HEMOGLOBIN 29 pg (25-34); MEAN CORPUSCULAR HGB CONC 32 g/dL (32-36); MEAN CORPUSCULAR VOLUME 89 fL (80-99); MEAN PLATELET VOLUME 11.3 fL (9.0-12.2); MONOCYTES # (AUTO) 0.8 10^3/uL (0.0-1.0); MONOCYTES % (AUTO) 17 % (0-12); NEUTROPHILS # (AUTO) 3.2 10^3/uL (1.8-7.8); NEUTROPHILS % (AUTO) 66 % (42-75); PLATELET COUNT 472 10^3/uL (130-400); WHITE BLOOD COUNT 4.8 10^3/uL (4.3-11.0)
[2021-09-29 09:50] LABS: HEMOGLOBIN 6.1 g/dL (13.3-17.7)
[2021-09-29 09:51] LABS: HEMATOCRIT 19 % (40-54)
[2021-09-29 09:57] LABS: ALBUMIN 3.5 GM/DL (3.2-4.5); BILIRUBIN,TOTAL 0.3 MG/DL (0.1-1.0); CALCIUM 8.5 MG/DL (8.5-10.1); CREATININE SERUM 0.99 MG/DL (0.60-1.30); POTASSIUM 4.1 MMOL/L (3.6-5.0); TOTAL PROTEIN 6.6 GM/DL (6.4-8.2)
[2021-09-29] MEDS ORDERED: NS (IVPB) 250 ML ONE (11:35)
== END 2021-10-02 | disposition home or self-care (01) ==
LOC: ONC 09:20
PROVIDERS: ATTEND Internal Medicine Hematology & Oncology
DX: D46.9 Myelodysplastic syndrome, unspecified (principal); D47.3 Essential (hemorrhagic) thrombocythemia; I10 Essential (primary) hypertension; E78.2 Mixed hyperlipidemia; I48.91 Unspecified atrial fibrillation; Z89.511 Acquired absence of right leg below knee; Z72.0 Tobacco use
CPT/HCPCS: 36415; 36430; 80053; 82728; 83540; 83550; 85025; 86850; 86900; 86901; 86920; 99213

== ENCOUNTER → 2021-10-26 | Outpatient (CLI) | payer MEDICARE ==
[~2021-10-26] MED LIST changes: -NS IV 500 ML 500 ML ONE
--- NOTE | 2021-10-26 16:51 | Diagnostic Imaging Report ---
INDICATION: Cough and congestion PA and lateral chest obtained at 4:14 p.m. and compared to 05/30/2019. Heart is mildly enlarged. Diffuse interstitial changes remain present and are similar to the prior study. There is no pneumothorax. There is minimal trace pleural fluid in the costophrenic angles on both sides. IMPRESSION: Cardiomegaly. Unchanged diffuse interstitial prominence with no new consolidation. Minimal trace pleural fluid on both sides. Dictated by: Dictated on workstation # [id number]
== END ==
LOC: RAD 15:57
PROVIDERS: ATTEND Family Medicine
DX: R05.9 Cough, unspecified (principal); R09.89 Other specified symptoms and signs involving the circulatory and respiratory systems
CPT/HCPCS: 71046

== ENCOUNTER 2021-10-27 08:45 | Outpatient (RCR) | payer MEDICARE ==
[2021-10-06 08:55] LABS: BASOPHILS % (AUTO) 0 % (0-10); EOSINOPHILS # (AUTO) 0.1 10^3/uL (0.0-0.3); EOSINOPHILS % (AUTO) 2 % (0-10); LYMPHOCYTES # (AUTO) 0.6 10^3/uL (1.0-4.0); LYMPHOCYTES % (AUTO) 14 % (12-44); MEAN CORPUSCULAR HEMOGLOBIN 28 pg (25-34); MEAN CORPUSCULAR HGB CONC 32 g/dL (32-36); MEAN CORPUSCULAR VOLUME 88 fL (80-99); MEAN PLATELET VOLUME 11.1 fL (9.0-12.2); MONOCYTES # (AUTO) 0.6 10^3/uL (0.0-1.0); MONOCYTES % (AUTO) 13 % (0-12); NEUTROPHILS % (AUTO) 66 % (42-75); PLATELET COUNT 473 10^3/uL (130-400); WHITE BLOOD COUNT 4.5 10^3/uL (4.3-11.0)
[2021-10-06 09:02] LABS: HEMATOCRIT 20 % (40-54); HEMOGLOBIN 6.3 g/dL (13.3-17.7)
[2021-10-13 09:32] LABS: BASOPHILS % (AUTO) 0 % (0-10); EOSINOPHILS # (AUTO) 0.1 10^3/uL (0.0-0.3); EOSINOPHILS % (AUTO) 2 % (0-10); HEMATOCRIT 22 % (40-54); HEMOGLOBIN 7.1 g/dL (13.3-17.7); LYMPHOCYTES # (AUTO) 0.6 10^3/uL (1.0-4.0); LYMPHOCYTES % (AUTO) 8 % (12-44); MEAN CORPUSCULAR HEMOGLOBIN 29 pg (25-34); MEAN CORPUSCULAR HGB CONC 33 g/dL (32-36); MEAN CORPUSCULAR VOLUME 88 fL (80-99); MEAN PLATELET VOLUME 11.6 fL (9.0-12.2); MONOCYTES # (AUTO) 0.9 10^3/uL (0.0-1.0); MONOCYTES % (AUTO) 11 % (0-12); NEUTROPHILS # (AUTO) 5.7 10^3/uL (1.8-7.8); NEUTROPHILS % (AUTO) 71 % (42-75); PLATELET COUNT 522 10^3/uL (130-400)
[2021-10-20] VITALS (7 sets, daily range): BP systolic 124–149; BP diastolic 57–65
[2021-10-20 09:33] LABS: BASOPHILS % (AUTO) 0 % (0-10); EOSINOPHILS # (AUTO) 0.1 10^3/uL (0.0-0.3); EOSINOPHILS % (AUTO) 1 % (0-10); LYMPHOCYTES # (AUTO) 0.6 10^3/uL (1.0-4.0); LYMPHOCYTES % (AUTO) 6 % (12-44); MEAN CORPUSCULAR HEMOGLOBIN 28 pg (25-34); MEAN CORPUSCULAR HGB CONC 32 g/dL (32-36); MEAN CORPUSCULAR VOLUME 88 fL (80-99); MEAN PLATELET VOLUME 12.2 fL (9.0-12.2); MONOCYTES # (AUTO) 0.7 10^3/uL (0.0-1.0); MONOCYTES % (AUTO) 8 % (0-12); NEUTROPHILS # (AUTO) 7.8 10^3/uL (1.8-7.8); NEUTROPHILS % (AUTO) 80 % (42-75); PLATELET COUNT 498 10^3/uL (130-400); WHITE BLOOD COUNT 9.8 10^3/uL (4.3-11.0)
[2021-10-20 09:37] LABS: HEMATOCRIT 15 % (40-54); HEMOGLOBIN 4.6 g/dL (13.3-17.7)
[2021-10-25 13:16] LABS: BASOPHILS % (AUTO) 0 % (0-10); EOSINOPHILS # (AUTO) 0.4 10^3/uL (0.0-0.3); EOSINOPHILS % (AUTO) 4 % (0-10); LYMPHOCYTES # (AUTO) 0.6 10^3/uL (1.0-4.0); LYMPHOCYTES % (AUTO) 7 % (12-44); MEAN CORPUSCULAR HEMOGLOBIN 29 pg (25-34); MEAN CORPUSCULAR HGB CONC 32 g/dL (32-36); MEAN CORPUSCULAR VOLUME 89 fL (80-99); MEAN PLATELET VOLUME 12.8 fL (9.0-12.2); MONOCYTES # (AUTO) 1.5 10^3/uL (0.0-1.0); MONOCYTES % (AUTO) 16 % (0-12); NEUTROPHILS # (AUTO) 6.6 10^3/uL (1.8-7.8); NEUTROPHILS % (AUTO) 70 % (42-75); PLATELET COUNT 203 10^3/uL (130-400); WHITE BLOOD COUNT 9.4 10^3/uL (4.3-11.0)
[2021-10-25 13:22] LABS: HEMATOCRIT 19 % (40-54); HEMOGLOBIN 6.1 g/dL (13.3-17.7)
[2021-10-25 13:40] LABS: ALBUMIN 3.1 GM/DL (3.2-4.5); BILIRUBIN,TOTAL 0.5 MG/DL (0.1-1.0); CALCIUM 7.8 MG/DL (8.5-10.1); CREATININE SERUM 1.11 MG/DL (0.60-1.30); POTASSIUM 3.8 MMOL/L (3.6-5.0); TOTAL PROTEIN 6.5 GM/DL (6.4-8.2)
[~2021-10-27 08:45] MED LIST changes: +NS IV 500 ML 500 ML IV SCH; +NS IV 500 ML 500 ML ONE; +[UNRECOGNIZED DRUG - CODE] PO; -[UNRECOGNIZED DRUG - CODE] PO
[2021-10-27 09:44] LABS: BASOPHILS % (AUTO) 0 % (0-10); EOSINOPHILS # (AUTO) 0.2 10^3/uL (0.0-0.3); EOSINOPHILS % (AUTO) 4 % (0-10); HEMATOCRIT 21 % (40-54); LYMPHOCYTES # (AUTO) 0.6 10^3/uL (1.0-4.0); LYMPHOCYTES % (AUTO) 10 % (12-44); MEAN CORPUSCULAR HEMOGLOBIN 29 pg (25-34); MEAN CORPUSCULAR HGB CONC 33 g/dL (32-36); MEAN CORPUSCULAR VOLUME 89 fL (80-99); MEAN PLATELET VOLUME 13.2 fL (9.0-12.2); MONOCYTES # (AUTO) 0.9 10^3/uL (0.0-1.0); MONOCYTES % (AUTO) 15 % (0-12); NEUTROPHILS % (AUTO) 69 % (42-75); PLATELET COUNT 166 10^3/uL (130-400); WHITE BLOOD COUNT 5.8 10^3/uL (4.3-11.0)
[2021-10-27 09:48] LABS: HEMOGLOBIN 6.8 g/dL (13.3-17.7)
[2021-10-27 09:51] LABS: POTASSIUM 3.7 MMOL/L (3.6-5.0)
[2021-10-27 09:53] LABS: CALCIUM 7.9 MG/DL (8.5-10.1)
[2021-10-27 09:54] LABS: TOTAL PROTEIN 6.5 GM/DL (6.4-8.2)
[2021-10-27 09:56] LABS: BILIRUBIN,TOTAL 0.4 MG/DL (0.1-1.0)
[2021-10-27 09:57] LABS: CREATININE SERUM 1.05 MG/DL (0.60-1.30)
[2021-10-31] MEDS ORDERED: LENA10CA PO (16:09)
== END 2021-11-02 | disposition home or self-care (01) ==
LOC: ONC 08:45
PROVIDERS: ATTEND Internal Medicine Hematology & Oncology
DX: D46.9 Myelodysplastic syndrome, unspecified (principal); D47.3 Essential (hemorrhagic) thrombocythemia; I10 Essential (primary) hypertension; E78.2 Mixed hyperlipidemia; I48.91 Unspecified atrial fibrillation; F03.90 Unspecified dementia, unspecified severity, without behavioral disturbance, psychotic disturbance, mood disturbance, and anxiety; Z89.511 Acquired absence of right leg below knee; Z72.0 Tobacco use
CPT/HCPCS: 36415; 36430; 80053; 85025; 86850; 86900; 86901; 86920; 99213

== ENCOUNTER 2021-10-31 15:41 | Observation (INO) | payer MEDICARE ==
[~2021-10-31] VITALS: Ht 188 cm; Wt 74.8 kg
[~2021-10-31 15:41] MED LIST changes: -NS IV 500 ML 500 ML IV SCH; -NS IV 500 ML 500 ML ONE
[2021-10-31] MEDS ORDERED: LENA10CA PO (16:09)
--- NOTE | 2021-10-31 16:26 | ED General ---
General Chief Complaint: Abdominal/GI Problems Stated Complaint: DIARRHEA Nursing Triage Note: PT HAS RARS-T AND HAS WEEKLY BLOOD TRANSFUSIONS THRU DR CASEY. STARTED A NEW MED, REVLIMID 10 MG DAILY SEVERAL WEEKS AGO AND THATS WHEN DIARRHEA STARTED. DAUGHTER REPORTS HE IS GETTING MORE WEAK Source of Information: Patient, Family (daughter) Exam Limitations: No Limitations History of Present Illness Date Seen by Provider: October 31, 2021 Time Seen by Provider: 16:05 Initial Comments Patient is a 76-year-old male who presents to the emergency department today with a chief complaint of diarrhea. He recently started a new medication for his myelodysplastic syndrome called Revlimid. He is followed at the oncology center here at [facility], [place]. He has had at least 2-3 bouts of diarrhea daily in recent weeks. None today. His daughter states that he receives weekly blood transfusions and he is just generally weak and not feeling good today. Patient himself denies any chest pain or shortness of breath. He has no nausea or vomiting. No reported URI symptoms. Denies any problems with urination. No black or bloody stools. No rashes joint pain or swelling. No sick contacts. He is COVID vaccinated with [employer] x1. He did have a COVID test at his primary care physician's office Dr. Gallegos, Monday of last week. It was negative. He is a smoker. He denies the use of inhalers. On my arrival into the room the patient is noted to be satting 87 to 88% on room air. He never has to use home oxygen. He also has a history of intermittent atrial fibrillation. He is on diltiazem 60 mg 4 times daily also digoxin 0.125 mg daily. They held his Plavix and anagrelide since October 29. He states he believes he took his diltiazem twice today. He is not on a beta- gerald. Dr. Pagan is his ruby engineer. All other review of systems reviewed and negative except as stated. Timing/Duration: 4-5 Days Severity: Moderate Associated Systoms: Malaise, Weakness, Other (Diarrhea) Allergies and Home Medications Allergies Coded Allergies: Sulfa (Sulfonamide Antibiotics) (Verified Allergy, Intermediate, 08/31/20) Tetanus Vaccines and Toxoid (Verified Allergy, Unknown, 11/17/18) Patient Home Medication List Home Medication List Reviewed: Yes Cholestyramine/Aspartame (Prevalite Packet) 4 Gm Powd.pack, 4 GM PO DAILY@1000 Prescribed by: KEVIN GALLEGOS on 09/03/20 1242 Last Action: Last Taken Edited Clopidogrel Bisulfate (Clopidogrel) 75 Mg Tablet, 75 MG PO DAILY, (Reported) Entered as Reported by: JESSICA FLORES on 08/31/201507 Last Action: Held Deferasirox (Deferasirox) 360 Mg Tablet, 1,080 MG PO DAILY, (Reported) Entered as Reported by: JESSICA FLORES on 08/31/201507 Last Action: Held Digoxin (Digoxin) 125 Mcg Tablet, 125 MCG PO DAILY, (Reported) Entered as Reported by: JESSICA FLORES on 08/31/201507 Last Action: Last Taken Edited Diltiazem HCl (Diltiazem HCl) 60 Mg Tablet, 60 MG PO QID, (Reported) Entered as Reported by: JESSICA FLORES on 08/31/201507 Last Action: Last Taken Edited Finasteride (Finasteride) 5 Mg Tablet, 5 MG PO DAILY, (Reported) Entered as Reported by: JOCELYN REVELES on 03/15/191228 Last Action: Last Taken Edited Lenalidomide (Revlimid) 10 Mg Capsule, 10 MG PO DAILY, (Reported) Entered as Reported by: GEOFFREY GOMEZ on 10/31/21 160 Last Action: New Order Tamsulosin HCl (Flomax) 0.4 Mg Cap, 0.8 MG PO DAILY, (Reported) Entered as Reported by: JOCELYN REVELES on 03/15/191228 Last Action: Last Taken Edited Discontinued Medications Hydroxyurea (Hydroxyurea) 500 Mg Capsule, 500 MG PO BID, (Reported) Discontinued Reason: New Order Entered as Reported by: JESSICA FLORES on 08/31/201507 Last Action: Discontinued Review of Systems Review of Systems Constitutional: see HPI EENTM: no symptoms reported Respiratory: no symptoms reported Cardiovascular: no symptoms reported Gastrointestinal: diarrhea Genitourinary: no symptoms reported Musculoskeletal: no symptoms reported Skin: no symptoms reported Psychiatric/Neurological: Other (Generalized weakness) All Other Systems Reviewed Negative Unless Noted: Yes Past Baldyfi-Qzxkgx-Zowqrs Hx Patient Social History Tobacco Use?: No Smoking Status: Current Everyday Smoker Alcohol Use?: Yes Alcohol Frequency: Rarely Immunizations Up To Date Tetanus Booster (TDap): Less than 5yrs PED Vaccines UTD: Yes Seasonal Allergies Seasonal Allergies: No Past Medical History Surgeries: Yes (RIGHT BKA 03/2019;PICC LINE IN R ARM OF 06/30/19;LOOP RECORDER 04/15/20) Amputation, Cardiac, Orthopedic, Tonsillectomy Respiratory: Yes (RESPIRATORY FAILURE WITH SIRS AND PNEUMONIA 04/2019; PNEUMONIA 05/2019) Pneumonia Cardiac: Yes (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;LOOP RECORDER) Atrial Fibrillation, Heart Attack, High Cholesterol, Hypertension, Peripheral Vascular Neurological: No Genitourinary: Yes (HX OF HEMATURIA; HX OF RENAL FAILURE WITH SIRS/PNEUMONIA 04/2019) Benign Prostatic Hyperpl, Bladder Infection Gastrointestinal: Yes (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) Chronic Constipation, Gall Bladder Disease Musculoskeletal: Yes (RIGHT BKA; GENERALIZED WEAKNESS) Amputee Endocrine: No HEENT: Yes Hearing Impairment: Hard of Hearing, Bilateral Hearing Aide Cancer: Yes (MYELODYSPLASTIC DISORDER WITH LEUKOPENIA, ANEMIA AND THROMBOCYTOSIS) Did You Recieve Any Treatments: Yes What Type of Treatment Did You: Chemotherapy Psychosocial: No Integumentary: Yes (LEFT ANKLE /LEFT HEEL WOUND; PYODERMA GANGRENOSUM) Blood Disorders: Yes (refractory anemia /ring sideroblasts W/ thrombocytosis;MYELODYSPLASIA) Adverse Reaction/Blood Tranf: No Family Medical History MYELODYSPLASTIC SYNDROME /MYELOPROLIFERATIVE DISORDER WAS DX 2016 IN [place]. HAD BEEN ON HYDROXYUREA, THIS WAS DC'D AND PT HAS BEEN ON ANAGRELIDE SINCE 03/2019. RECEIVES WEEKLY BLOOD TRANSFUSIONS--EVERY MONDAY ADDITIONAL PMH : -NSTEMI 04/23/19. -MULTIPLE EPISODES OF RESPIRATORY FAILURE Physical Exam Vital Signs Vital Signs - First Documented 10/31/21 15:51 Pulse 42 Resp 30 B/P (MAP) 121/41 (67) Pulse Ox 93 O2 Delivery Room Air Capillary Refill : NONE Height, Weight, BMI Height: 6'1.00" Weight: 196lbs. oz. 88.548064kz; 21.00 BMI Method:Stated General Appearance: No Apparent Distress, Thin Eyes: Bilateral Eye PERRL, Bilateral Eye EOMI, Bilateral Eye Conjunctivae Pale HEENT: Normal ENT Inspection, Other (Dry and pale mucous membranes) Neck: Normal Inspection Respiratory: Lungs Clear, Normal Breath Sounds, No Accessory Muscle Use, No Respiratory Distress Cardiovascular: Regular Rate, Rhythm, Normal Peripheral Pulses, Bradycardia Gastrointestinal: Normal Bowel Sounds, Non Tender, Soft Extremity: Normal Capillary Refill, Normal Inspection, Normal Range of Motion, No Pedal Edema Neurologic/Psychiatric: Alert, Oriented x3, No Motor/Sensory Deficits, Normal Mood/Affect, fish technologist II-XII Norm as Tested Skin: Warm/Dry, Pallor Progress/Results/Core Measures Suspected Sepsis SIRS Temperature: Pulse: 42 Respiratory Rate: 30 Laboratory Tests 10/31/21 16:25: White Blood Count 3.3L Blood Pressure 121 /41 Mean: 67 Laboratory Tests 10/31/21 16:25: Creatinine 1.01, Platelet Count 252, Total Bilirubin 0.2 Results/Orders Lab Results Laboratory Tests Test 10/31/21 16:25 Range/Units White Blood Count 3.3 L 4.3-11.0 10^3/uL Red Blood Count 2.12 L 4.30-5.52 10^6/uL Hemoglobin 6.1 *L 13.3-17.7 g/dL Hematocrit 19 *L 40-54 % Mean Corpuscular Volume 90 80-99 fL Mean Corpuscular Hemoglobin 29 25-34 pg Mean Corpuscular Hemoglobin Concent 32 32-36 g/dL Red Cell Distribution Width 15.1 H 10.0-14.5 % Platelet Count 252 130-400 10^3/uL Mean Platelet Volume 12.2 9.0-12.2 fL Immature Granulocyte % (Auto) 5 % Neutrophils (%) (Auto) 56 42-75 % Lymphocytes (%) (Auto) 20 12-44 % Monocytes (%) (Auto) 14 H 0-12 % Eosinophils (%) (Auto) 5 0-10 % Basophils (%) (Auto) 0 0-10 % Neutrophils # (Auto) 1.9 1.8-7.8 10^3/uL Lymphocytes # (Auto) 0.7 L 1.0-4.0 10^3/uL Monocytes # (Auto) 0.5 0.0-1.0 10^3/uL Eosinophils # (Auto) 0.2 0.0-0.3 10^3/uL Basophils # (Auto) 0.0 0.0-0.1 10^3/uL Immature Granulocyte # (Auto) 0.2 H 0.0-0.1 10^3/uL Sodium Level 140 135-145 MMOL/L Potassium Level 4.2 3.6-5.0 MMOL/L Chloride Level 110 H 98-107 MMOL/L Carbon Dioxide Level 19 L 21-32 MMOL/L Anion Gap 11 5-14 MMOL/L Blood Urea Nitrogen 18 7-18 MG/DL Creatinine 1.01 0.60-1.30 MG/DL Estimat Glomerular Filtration Rate 76 BUN/Creatinine Ratio 18 Glucose Level 91 70-105 MG/DL Calcium Level 7.8 L 8.5-10.1 MG/DL Corrected Calcium 8.7 8.5-10.1 MG/DL Total Bilirubin 0.2 0.1-1.0 MG/DL Aspartate Amino Transf (AST/SGOT) 38 H 5-34 U/L Alanine Aminotransferase (ALT/SGPT) 57 H 0-55 U/L Alkaline Phosphatase 61 40-136 U/L B-Type Natriuretic Peptide 458.4 H <100.0 PG/ML Total Protein 6.5 6.4-8.2 GM/DL Albumin 2.9 L 3.2-4.5 GM/DL My Orders Orders - ILDA MOREIRA MD Ekg Tracing (10/31/21 16:00) Type And Screen (10/31/21 16:25) Cbc With Automated Diff (10/31/21 16:25) Comprehensive Metabolic Panel (10/31/21 16:25) Chest 1 View, Ap/Pa Only (10/31/21 16:25) Bnp Mckenzie (10/31/21 17:08) Vital Signs/I&O 10/31/21 15:51 Pulse 42 Resp 30 B/P (MAP) 121/41 (67) Pulse Ox 93 O2 Delivery Room Air Capillary Refill : NONE Blood Pressure Mean: 67 Progress Note : Time: 17:16 Progress Note Reviewed patient's labs, imaging study. His hemoglobin is 6.1. His chest x-ray shows moderate pulmonary vascular congestion. He is requiring supplemental oxygen. I discussed the case with Dr. Hernandez who accepts him for observation admission. I also discussed the patient with Dr. Trejo who recommends 40 mg of IV Lasix. Patient will be admitted to cardiac stepdown. ECG Initial ECG Impression Date: October 31, 2021 Initial ECG Impression Time: 16:10 Initial ECG Rate: 43 Initial ECG Rhythm: S.Nikolay Initial ECG Intervals PA interval 177 QRS [address] segment elevation or depression is noted. No ectopy is noted. Diagnostic Imaging Diagonstic Imaging: Xray Plain Films/CT/US/NM/MRI: chest Comments [facility] [place], [place] NAME: FARZAD [facility] REC#: [id number] PT STATUS: REG ER : 1945 PHYSICIAN: ILDA MOREIRA MD ADMIT DATE: 10/31/21/ER Draft Date of Exam:10/31/21 CHEST 1 VIEW, AP/PA ONLY CLINICAL INDICATION: Patient with hypoxia. EXAM: Portable chest x-ray upright view. COMPARISON: Chest x-ray dated 05/30/2019. FINDINGS: Stable cardiomegaly. There is no significant pulmonary vascular congestion. There is diffuse increased lung markings throughout both lungs. There is no pleural effusion or pneumothorax. Loop recorder is seen placed overlying the left chest. IMPRESSION: 1: Stable cardiomegaly with no significant pulmonary vascular congestion. 2: There are increased lung markings throughout both lungs which may be related to chronic lung changes or pulmonary venous congestion. Dictated on workstation # [id number] Dict: 10/31/21 1648 Trans: 10/31/21 1654 [facility] [id number] Interpreted by: MARC STONE MD Electronically signed by: Departure Communication (Admissions) Time/Spoke to Admitting Phy: 17:[address] Ridley Time/Spoke to Consulting Phy: 17:[address] Trejo Impression Primary Impression: Anemia Qualified Codes: D64.9 - Anemia, unspecified Additional Impressions: Myelodysplastic syndrome Congestive heart failure Qualified Codes: I50.9 - Heart failure, unspecified Disposition: ADMITTED INPATIENT Condition: Stable Admissions Decision to Admit Reason: Admit from ER (General) Decision to Admit/Date: October 31, 2021 Time/Decision to Admit Time: 17:18 Departure-Patient Inst. Referrals: KEVIN GALLEGOS DO (PCP/Family) Primary Care Physician ILDA MOREIRA MD October 31, 2021 16:26
[2021-10-31 16:34] LABS: BASOPHILS % (AUTO) 0 % (0-10); EOSINOPHILS # (AUTO) 0.2 10^3/uL (0.0-0.3); EOSINOPHILS % (AUTO) 5 % (0-10); LYMPHOCYTES # (AUTO) 0.7 10^3/uL (1.0-4.0); LYMPHOCYTES % (AUTO) 20 % (12-44); MEAN CORPUSCULAR HEMOGLOBIN 29 pg (25-34); MEAN CORPUSCULAR HGB CONC 32 g/dL (32-36); MEAN CORPUSCULAR VOLUME 90 fL (80-99); MEAN PLATELET VOLUME 12.2 fL (9.0-12.2); MONOCYTES # (AUTO) 0.5 10^3/uL (0.0-1.0); MONOCYTES % (AUTO) 14 % (0-12); NEUTROPHILS # (AUTO) 1.9 10^3/uL (1.8-7.8); NEUTROPHILS % (AUTO) 56 % (42-75); PLATELET COUNT 252 10^3/uL (130-400); WHITE BLOOD COUNT 3.3 10^3/uL (4.3-11.0)
[2021-10-31 16:37] LABS: HEMATOCRIT 19 % (40-54); HEMOGLOBIN 6.1 g/dL (13.3-17.7)
[2021-10-31 16:50] LABS: ALBUMIN 2.9 GM/DL (3.2-4.5); POTASSIUM 4.2 MMOL/L (3.6-5.0)
[2021-10-31 16:52] LABS: CALCIUM 7.8 MG/DL (8.5-10.1)
[2021-10-31 16:53] LABS: TOTAL PROTEIN 6.5 GM/DL (6.4-8.2)
[2021-10-31 16:54] LABS: BILIRUBIN,TOTAL 0.2 MG/DL (0.1-1.0)
--- NOTE | 2021-10-31 16:55 | Diagnostic Imaging Report ---
CLINICAL INDICATION: Patient with hypoxia. EXAM: Portable chest x-ray upright view. COMPARISON: Chest x-ray dated 05/30/2019. FINDINGS: Stable cardiomegaly. There is no significant pulmonary vascular congestion. There is diffuse increased lung markings throughout both lungs. There is no pleural effusion or pneumothorax. Loop recorder is seen placed overlying the left chest. IMPRESSION: 1: Stable cardiomegaly with no significant pulmonary vascular congestion. 2: There are increased lung markings throughout both lungs which may be related to chronic lung changes or pulmonary venous congestion. Dictated by: Dictated on workstation # [id number]
[2021-10-31 16:56] LABS: CREATININE SERUM 1.01 MG/DL (0.60-1.30)
[2021-10-31] MEDS ORDERED: FUROSEMIDE 40 MG/4 ML INJ (LASIX) IVP ONE (17:30)
[2021-10-31] MEDS ORDERED: NS IV 500 ML 500 ML ONE (18:05)
[2021-10-31 18:30] VITALS: BP 132/45
[2021-10-31 18:45] VITALS: BP 137/45
[2021-10-31 20:00] VITALS: BP 158/50
[2021-10-31 20:19] VITALS: BP 121/41
[2021-10-31] MEDS ORDERED: RT-ALBUTEROL SULF 2.5 MG/3 ML PRE-MIX VIAL INH PRN (20:30)
[2021-10-31 21:09] VITALS: BP 142/54
[2021-10-31 22:49] VITALS: BP 153/58
[2021-11-01] VITALS (7 sets, daily range): BP systolic 110–162; BP diastolic 43–57
[2021-11-01 06:38] LABS: BASOPHILS % (AUTO) 1 % (0-10); EOSINOPHILS # (AUTO) 0.2 10^3/uL (0.0-0.3); EOSINOPHILS % (AUTO) 5 % (0-10); HEMATOCRIT 24 % (40-54); HEMOGLOBIN 7.9 g/dL (13.3-17.7); LYMPHOCYTES # (AUTO) 0.6 10^3/uL (1.0-4.0); LYMPHOCYTES % (AUTO) 17 % (12-44); MEAN CORPUSCULAR HEMOGLOBIN 29 pg (25-34); MEAN CORPUSCULAR HGB CONC 33 g/dL (32-36); MEAN CORPUSCULAR VOLUME 87 fL (80-99); MEAN PLATELET VOLUME 12.3 fL (9.0-12.2); MONOCYTES # (AUTO) 0.5 10^3/uL (0.0-1.0); MONOCYTES % (AUTO) 14 % (0-12); NEUTROPHILS % (AUTO) 59 % (42-75); PLATELET COUNT 290 10^3/uL (130-400); WHITE BLOOD COUNT 3.4 10^3/uL (4.3-11.0)
[2021-11-01 06:48] LABS: CALCIUM 7.9 MG/DL (8.5-10.1)
[2021-11-01 06:52] LABS: CREATININE SERUM 1.01 MG/DL (0.60-1.30)
[2021-11-01] MEDS ORDERED: DEFERASIROX 360 MG PO SCH (09:00)
--- NOTE | 2021-11-01 09:59 | History & Physical-Hospitalist ---
History of Present Illness HPI/Chief Complaint Patient is a 76-year-old male with a past medical history of myelodysplastic syndrome, peripheral vascular disease status post BKA who presented to the emergency department due to diarrhea. He is recently started on Revlimid and follows with the oncology center here. They have been ordering weekly blood transfusions for him due to his persistent anemia and today he seemed weak and just complained of not feeling well. She was worried that his hemoglobin was low again and brought him in for evaluation. Hemoglobin was checked and was found to be 6.1 he also was found to have some pulmonary vascular congestion and was hypoxic so was admitted for blood and further management of hypoxia. He is sleeping and at family request due to history of belligerent behavior by patient they request that I not wake him. Thus all history is obtained from family and notes. Source: patient Date Seen 11/01/21 Time Seen by a Provider: 09:20 Attending Physician Leeann Gallegos DO PCP Admitting Physician: Ish Ridley MD Attending Physician: Ish Ridley MD Referring Physician Date of Admission October 31, 2021 at 17:22 Home Medications & Allergies Home Medications Reviewed patient Home Medication Reconciliation performed by pharmacy medication reconciliations guitar technician and/or nursing. Patients Allergies have been reviewed. Allergies Allergies Coded Allergies Sulfa (Sulfonamide Antibiotics) (Verified Allergy, Intermediate, 08/31/20) Tetanus Vaccines and Toxoid (Verified Allergy, Unknown, 11/17/18) Past Nancnxo-Colbla-Gsvcqb Hx Patient Social History Tobacco Use?: Yes Tobacco type used: Cigarettes Smoking Status: Current Everyday Smoker Smokeless Tobacco Frequency: Never a User Use of E-Cig and/or Vaping dev: No Use of E-Cig and/or Vaping Zach: Never a User Substance use?: No Alcohol Use?: No Alcohol Frequency: Rarely Pt feels they are or have been: No Immunizations Up To Date First/Initial COVID19 Vaccinat: [employer]resh [employer]resh Tetanus Booster (TDap): Unknown Hepatitis A: No Hepatitis B: No PED Vaccines UTD: Yes Seasonal Allergies Seasonal Allergies: No Current Status Advance Directives: No Communicates: Verbally Primary Language: Latvian Preferred Spoken Language: Latvian Is interpretation needed?: No Sensory deficits: Vision impairment Implanted or Applied Medical D: Other Past Medical History Surgeries: Amputation, Cardiac, Orthopedic, Tonsillectomy Pneumonia Atrial Fibrillation, Heart Attack, High Cholesterol, Hypertension, Peripheral Vascular Benign Prostatic Hyperpl, Bladder Infection Chronic Constipation, Gall Bladder Disease Amputee Hearing Impairment: Hard of Hearing, Bilateral Hearing Aide Did You Recieve Any Treatments: Yes What Type of Treatment Did You: Chemotherapy Blood Disorders: Yes (refractory anemia /ring sideroblasts W/ thro mbocytosis;MYELODYSPLASIA) Adverse Reaction/Blood Tranf: No Family Medical History MYELODYSPLASTIC SYNDROME /MYELOPROLIFERATIVE DISORDER WAS DX 2016 IN [place]. HAD BEEN ON HYDROXYUREA, THIS WAS DC'D AND PT HAS BEEN ON ANAGRELIDE SINCE 03/2019. RECEIVES WEEKLY BLOOD TRANSFUSIONS--EVERY MONDAY ADDITIONAL PMH : -NSTEMI 04/23/19. -MULTIPLE EPISODES OF RESPIRATORY FAILURE Review of Systems ROS-Unable to Obtain: family requested to not wake patient Constitutional: see HPI Physical Exam Physical Exam Vital Signs Vital Signs - First Documented 10/31/21 10/31/21 10/31/21 15:51 18:30 20:19 Temp 36.5 Pulse 42 Resp 30 B/P (MAP) 121/41 (67) Pulse Ox 93 O2 Delivery Room Air O2 Flow Rate 3.00 FiO2 21 Capillary Refill : NONE Height, Weight, BMI Height: 6'1.00" Weight: 196lbs. oz. 88.931901xt; 21.16 BMI Method:Stated General Appearance: No Apparent Distress, Chronically ill, Thin, Other (sleeping soundly) Respiratory: Lungs Clear, No Respiratory Distress Cardiovascular: No Murmur, Bradycardia Neurologic/Psychiatric: Other (sleeping) Comments exam llimited family asked me not to wake patient Results Results/Procedures Labs Laboratory Tests 11/03/21 04:37 Patient resulted labs reviewed. Assessment/Plan Admission Diagnosis Refractory anemia with CHF Admission Status: Observation Assessment and Plan Anemia Myelodysplastic syndrome s/p 1 unit and Hgb up to 7.9 this AM Daughter concerned Revlimid is causing more problems than is helping They are considering transitioning to palliative care Palliative care consult placed Presumed CHF Bradycardia Likely due to anemia Cardiology consulted, appreciate recs hypoxic improving with lasix Echo ordered Hold home cardizem, trend Monitor on telemetry Weakness Diarrhea ?due to revlimid Hold for now Hold on PT today due to family request to disturb patient as little as possible DVT ppx- SCD only due to anemia ISH RIDLEY MD November 01, 2021 09:59
--- NOTE | 2021-11-01 11:49 | Consultation-Cardiology ---
HPI-Cardiology Cardiology Consultation: Date of Consultation 11/01/21 Date of Admission 10/31/21 Attending Physician Kevin Gallegos DO Admitting Physician Admitting Physician: Marian Ridley MD Attending Physician: Marian Ridley MD Consulting Physician MIGUEL GOTTLIEB JR, MD HPI: Time Seen by a Provider: 11:44 Chief Complaint: REASON FOR CONSULTATION: Heart failure. I had the pleasure of seeing Andrew on the cardiac stepdown unit at [facility] in [place], [place] today. He normally follows with one of my partners, Dr. Pagan. He has a history of paroxysmal atrial fibrillation but has been in sinus rhythm, peripheral vascular disease with a previous right below-knee amputation, and hypertension. He has severe myelodysplastic syndrome and recently started a new medication for this about 3 weeks ago under the direction of his electric tape slitter. Since that time, he has been having increasing weakness and fatigue as well as lightheaded spells. Over the past few days he has also had increasing dyspnea on exertion. Yesterday his family brought him to the emergency room because his daughter thought that he was so weak and lightheaded that he was going to pass out. He was found to again have profound anemia as well as an elevated BNP level and some evidence of pulmonary congestion on his chest x-ray. He was given intravenous furosemide in the emergency room and a cardiology consultation was requested. He has also received 1 blood transfusion since yesterday. His breathing is improved today. He denies chest discomfort. He denies paroxysmal nocturnal dyspnea, orthopnea, palpitations, or ankle edema of the left foot. Certain portions of this document may have been dictated utilizing voice rec ognition technology. Inherent to this technology, typographical and grammatical errors may exist. As much as I am diligent to identify and correct these mistakes, some errors may remain in the document. Review of Systems-Cardiology Review of Systems Other comments Review of 10 organ systems is as per the history of present illness, otherwise negative. All Other Systems Reviewed Negative Unless Noted: Yes LHT-Dcfeza-Qyxidw Hx Patient Social History Marrital Status: Smoking Status: Current Everyday Smoker Have you traveled recently?: No Alcohol Use?: No Pt feels they are or have been: No Tobacco type used: Cigarettes Immunizations Up To Date Tetanus Booster (TDap): Less than 5yrs Past Medical History PMH As described under Assessment. Family Medical History Family Medical History: He did not report a family history of premature coronary artery disease. Allergies and Home Medications Allergies Coded Allergies: Sulfa (Sulfonamide Antibiotics) (Verified Allergy, Intermediate, 08/31/20) Tetanus Vaccines and Toxoid (Verified Allergy, Unknown, 11/17/18) Patient Home Medication List Home Medication List Reviewed: Yes Cholestyramine/Aspartame (Prevalite Packet) 4 Gm Powd.pack, 4 GM PO DAILY@1000 Prescribed by: KEVIN GALLEGOS on 09/03/20 1242 Last Action: Last Taken Edited Clopidogrel Bisulfate (Clopidogrel) 75 Mg Tablet, 75 MG PO DAILY, (Reported) Entered as Reported by: JESSICA FLORES on 08/31/201507 Last Action: Held Deferasirox (Deferasirox) 360 Mg Tablet, 1,080 MG PO DAILY, (Reported) Entered as Reported by: JESSICA FLORES on 08/31/201507 Last Action: Held Digoxin (Digoxin) 125 Mcg Tablet, 125 MCG PO DAILY, (Reported) Entered as Reported by: JESSICA FLORES on 08/31/201507 Last Action: Last Taken Edited Diltiazem HCl (Diltiazem HCl) 60 Mg Tablet, 60 MG PO QID, (Reported) Entered as Reported by: JESSICA FLORES on 08/31/201507 Last Action: Last Taken Edited Finasteride (Finasteride) 5 Mg Tablet, 5 MG PO DAILY, (Reported) Entered as Reported by: JOCELYN REVELES on 03/15/191228 Last Action: Last Taken Edited Lenalidomide (Revlimid) 10 Mg Capsule, 10 MG PO DAILY, (Reported) Entered as Reported by: GEOFFREY GOMEZ on 10/31/21 1609 Last Action: New Order Tamsulosin HCl (Flomax) 0.4 Mg Cap, 0.8 MG PO DAILY, (Reported) Entered as Reported by: JOCELYN REVELES on 03/15/191228 Last Action: Last Taken Edited Discontinued Medications Hydroxyurea (Hydroxyurea) 500 Mg Capsule, 500 MG PO BID, (Reported) Discontinued Reason: New Order Entered as Reported by: JESSICA FLORES on 08/31/201507 Last Action: Discontinued Exam Vital Signs Vital Signs Date Time Temp Pulse Resp B/P (MAP) Pulse Ox O2 Delivery O2 Flow Rate FiO2 11/01/21 07:47 35.8 52 17 156/57 (90) 98 Nasal Cannula 3.00 10/31/21 20:19 21 Physical Exam General: Alert. No acute distress. He appears chronically ill and malnourished. Eye: Extraocular movements are intact. Conjunctivae are clear. There are no xanthelasma. HENT: Normocephalic. Atraumatic. Carotid pulsations 2/2 without bruits. There is temporal wasting. Neck: Jugular venous pressure does not appear elevated. No thyromegaly appreciated. Respiratory: Lungs are clear to auscultation. Respirations are non-labored. Breath sounds are equal. Symmetrical chest wall expansion. Cardiovascular: Normal rate. Regular rhythm. No murmur. No gallop. Point of maximal impulse is not appear displaced. Good pulses equal in all extremities. No edema. Gastrointestinal: Soft. Normal bowel sounds. Skin: Skin turgor is normal. There is no pallor. Musculoskeletal: No kyphosis or scoliosis appreciated. Right below-knee amputation. Neurologic: Alert and oriented to person, place, time. Cranial nerves 3-12 appear grossly intact. The patient has good motor tone strength in the upper and lower extremities bilaterally except for right lower extremity below the amputation. Psychiatric: Cooperative. Appropriate mood & affect. Labs Laboratory Tests Test 10/31/21 16:25 11/01/21 06:21 Range/Units White Blood Count 3.3 L 3.4 L 4.3-11.0 10^3/uL Red Blood Count 2.12 L 2.76 L 4.30-5.52 10^6/uL Hemoglobin 6.1 *L 7.9 #L 13.3-17.7 g/dL Hematocrit 19 *L 24 L 40-54 % Mean Corpuscular Volume 90 87 80-99 fL Mean Corpuscular Hemoglobin 29 29 25-34 pg Mean Corpuscular Hemoglobin Concent 32 33 32-36 g/dL Red Cell Distribution Width 15.1 H 15.1 H 10.0-14.5 % Platelet Count 252 290 130-400 10^3/uL Mean Platelet Volume 12.2 12.3 H 9.0-12.2 fL Immature Granulocyte % (Auto) 5 4 % Neutrophils (%) (Auto) 56 59 42-75 % Lymphocytes (%) (Auto) 20 17 12-44 % Monocytes (%) (Auto) 14 H 14 H 0-12 % Eosinophils (%) (Auto) 5 5 0-10 % Basophils (%) (Auto) 0 1 0-10 % Neutrophils # (Auto) 1.9 2.0 1.8-7.8 10^3/uL Lymphocytes # (Auto) 0.7 L 0.6 L 1.0-4.0 10^3/uL Monocytes # (Auto) 0.5 0.5 0.0-1.0 10^3/uL Eosinophils # (Auto) 0.2 0.2 0.0-0.3 10^3/uL Basophils # (Auto) 0.0 0.0 0.0-0.1 10^3/uL Immature Granulocyte # (Auto) 0.2 H 0.1 0.0-0.1 10^3/uL Sodium Level 140 139 135-145 MMOL/L Potassium Level 4.2 4.0 3.6-5.0 MMOL/L Chloride Level 110 H 110 H 98-107 MMOL/L Carbon Dioxide Level 19 L 19 L 21-32 MMOL/L Anion Gap 11 10 5-14 MMOL/L Blood Urea Nitrogen 18 17 7-18 MG/DL Creatinine 1.01 1.01 0.60-1.30 MG/DL Estimat Glomerular Filtration Rate 76 76 BUN/Creatinine Ratio 18 17 Glucose Level 91 72 70-105 MG/DL Calcium Level 7.8 L 7.9 L 8.5-10.1 MG/DL Corrected Calcium 8.7 8.5-10.1 MG/DL Total Bilirubin 0.2 0.1-1.0 MG/DL Aspartate Amino Transf (AST/SGOT) 38 H 5-34 U/L Alanine Aminotransferase (ALT/SGPT) 57 H 0-55 U/L Alkaline Phosphatase 61 40-136 U/L B-Type Natriuretic Peptide 458.4 H <100.0 PG/ML Total Protein 6.5 6.4-8.2 GM/DL Albumin 2.9 L 3.2-4.5 GM/DL ECG Impression ECG Comment Electrocardiogram from the emergency room on 10/31 shows sinus bradycardia 43 bpm with early transition. Diagnosis/Problems Diagnosis/Problems (1) Acute heart failure with preserved ejection fraction (HFpEF) Assessment & Plan: This is a new diagnosis in the patient. Some of this may be due to blood transfusions and also severe anemia with decreased myocardial performance. He has improved with 1 dose of intravenous furosemide and a blood transfusion. I will obtain a follow-up chest x-ray in the morning. I have also ordered a follow-up echocardiogram for the morning since he has not had one since 2019. His regular group managing director will be back in the hospital tomorrow and will see the patient at that time. (2) Sinus bradycardia Assessment & Plan: He had severe bradycardia in the emergency room. This could be contributing to his shortness of breath. He was taking digoxin and short acting diltiazem at home. I recommend stopping the digoxin. He does not have any issues swallowing pills but his family recalls he had some sort of issue with taking long-acting diltiazem in the past. He was taking 240 mg of diltiazem daily at home. I will give him a trial of diltiazem CD 120 mg daily to start today. (3) Primary hypertension Assessment & Plan: He has not received any of his diltiazem since being admitted. His blood pressures are elevated. I will start him on diltiazem CD1 120 mg daily and see how his blood pressure responds. (4) Paroxysmal atrial fibrillation Assessment & Plan: He has an implantable loop recorder in place and the most recent interrogations done in our office have not shown any atrial fibrillation. He was not on any oral anticoagulation at home. I would recommend that we continue to follow his loop recorder for any signs of recurrent atrial fibrillation and hold off on giving him any oral anticoagulation due to his severe myelodysplastic syndrome with increased risk of potential hemorrhagic side effects. Clopidogrel is not indicated for atrial fibrillation. (5) Peripheral arterial disease Assessment & Plan: He has been too weak to use his prosthesis. He had been taking clopidogrel at home, presumably due to the peripheral arterial disease. However, due to the severe myelodysplastic syndrome, his electric tape slitter has put this on hold. (6) Myelodysplastic syndrome Status: Acute Assessment & Plan: This is being managed by his electric tape slitter. MIGUEL GOTTLIEB JR, MD November 01, 2021 11:49
[2021-11-01] MEDS: dilTIAZem120 MG (CARDIZEM CD) CAP PO SCH (13:42)
[2021-11-01] MEDS: FINASTERIDE (PROSCAR) 5 MG TAB PO SCH (13:42)
[2021-11-01] MEDS: TAMSULOSIN 0.4 MG (FLOMAX) CAP PO SCH (17:58)
[2021-11-01] MEDS ORDERED: polyethylene glycoL POWDER 17 GM (MIRALAX) PACK PO PRN (19:00)
[2021-11-02] VITALS (8 sets, daily range): BP systolic 121–133; BP diastolic 47–58
[2021-11-02] MEDS: dilTIAZem120 MG (CARDIZEM CD) CAP PO SCH (09:18)
--- NOTE | 2021-11-02 10:26 | Cardiology Progress Note ---
Subjective Date Seen by Provider: November 02, 2021 Time Seen by Provider: 09:00 Subjective/Events-last exam Patient was seen at bedside, laying down comfortably Complaining of fatigue and loss of energy Complaining of constipation. Review of Systems General: No Chills, No Night Sweats; Fatigue, Malaise; No Appetite, No Other HEENT: No Head Aches, No Visual Changes, No Eye Pain, No Ear Pain, No Dysphasia, No Sinus Congestion, No Post Nasal Drip, No Sore Throat, No Other Pulmonary: Dyspnea; No Cough, No Pleuritic Chest Pain, No Other Cardiovascular: No: Chest Pain, Palpitations, Orthopnea, Paroxysmal Noc. Dyspnea, Edema, Lt Headedness, Other Objective-Cardiology Exam Last Set of Vital Signs Vital Signs 10/31/21 11/02/21 11/02/21 20:19 08:00 08:05 Temp 36.4 Pulse 45 Resp 16 B/P (MAP) 133/58 (83) Pulse Ox 92 O2 Delivery Nasal Cannula O2 Flow Rate 3.00 FiO2 21 I&O Intake and Output 11/02/21 00:00 Intake Total 1124 ml Output Total 1360 ml Balance -236 ml Intake Oral 1124 ml Output Urine Total 1360 ml General: Alert, Oriented X3, Cooperative HEENT: Atraumatic, PERRLA Neck: Supple, No JVD Lungs: Clear to Auscultation, Normal Air Movement Heart: Normal S1, Normal S2, Other (Systolic murmur at the left sternal border) Abdomen: Normal Bowel Sounds Extremities: No Clubbing, No Cyanosis, Other (Right BKA) Skin: No Rashes Neuro: Normal Speech Psych/Mental Status: Mental Status NL, Mood NL A/P-Cardiology Admission Diagnosis Generalized weakness Bradycardia Paroxysmal atrial fibrillation Sinus node dysfunction Assessment/Plan Generalized weakness, some improvement after blood transfusion. Managed by medical team Anemia, myelodysplastic syndrome History of thrombocytosis and anemia. Proceed 1 unit packed RBCs. Slightly better. Managed by medical team. Sinus bradycardia, patient had episode of severe bradycardia in the emergency room. He was on diltiazem and digoxin, still bradycardic at this time. Holding diltiazem and digoxin and monitoring. Paroxysmal atrial fibrillation, had loop monitor implanted April 2020. Had few episodes of atrial fibrillation with rapid ventricular response. Backing down on some of the medication and monitor tolerance and response Intolerance to oral anticoagulation due to recurrent bleeding and severe anemia. Peripheral arterial disease, history of right BKA, continue to monitor Myelodysplastic syndrome, thrombocytosis. Followed by Dr. Hannah. Hypertension, monitor blood pressure Tobaccoism, educated in length about smoking cessation. JULISSA BYRD MD November 02, 2021 10:26
--- NOTE | 2021-11-02 10:36 | Diagnostic Imaging Report ---
INDICATION: Cardiac failure. TECHNIQUE/COMPARISON: PA and lateral views of the chest were obtained with comparison made to the study of 10/26/2021. FINDINGS: The heart size and pulmonary vascularity are at the upper limits of normal. Prominent interstitial markings are seen throughout the lungs with mild interval improvement. There is no evidence of pneumothorax or significant pleural fluid. IMPRESSION: The interstitial markings may reflect underlying chronic scarring with probable slight improvement in the superimposed pulmonary edema since the previous study. Dictated by: Dictated on workstation # [id number]
[2021-11-02] MEDS: FINASTERIDE (PROSCAR) 5 MG TAB PO SCH (12:25)
--- NOTE | 2021-11-02 17:38 | Progress Note ---
Subjective Date Seen by a Provider: November 02, 2021 Time Seen by a Provider: 12:30 Subjective/Events-last exam Fwup weakness, bradycardia, pulmonary edema, COPD, myelodysplastic syndrome with chronic anemia, PAD, HTN. Denies dyspnea. Still fatigued. Hemoglobin up to 7.9. Objective Exam Vital Signs Date Time Temp Pulse Resp B/P (MAP) Pulse Ox O2 Delivery O2 Flow Rate FiO2 11/02/21 16:00 36.4 46 14 133/49 (77) 99 Nasal Cannula 3.00 11/02/21 15:00 45 13 133/49 (77) 97 Room Air 11/02/21 14:54 Nasal Cannula 3.00 11/02/21 13:00 43 11/02/21 12:26 43 18 133/58 (83) 11/02/21 08:05 Nasal Cannula 3.00 11/02/21 08:00 36.4 45 16 133/58 (83) 92 Room Air 11/02/21 07:00 48 21 133/58 (83) Room Air 11/02/21 07:00 50 11/02/21 03:58 36.4 55 14 121/48 (72) 96 Room Air 11/02/21 01:00 50 11/01/21 23:56 37.0 53 16 143/52 (82) 96 Room Air 11/01/21 20:29 Nasal Cannula 3.00 11/01/21 19:59 36.9 44 18 110/43 (65) 89 Room Air 11/01/21 19:00 45 l I & O 11/02/21 07:00 Intake Total 1124 ml Output Total 1200 ml Balance -76 ml Capillary Refill : NONE General Appearance: No Apparent Distress Respiratory: Lungs Clear Cardiovascular: Regular Rate, Rhythm, Systolic Murmur, Gallop/S4 Gastrointestinal: normal bowel sounds, non tender, soft Extremity: Non Tender, No Calf Tenderness, No Pedal Edema Neurologic/Psychiatric: Alert, Oriented x3 Skin: Warm/Dry Assessment/Plan Assessment/Plan Assess & Plan/Chief Complaint 1. Weakness--multifactorial including anemia, bradycardia, deconditioning, meds 2. Bradycardia/Sick Sinus Syndrome--digoxin on hold and cardizem dose decreased, monitoring HR response 3. Chronic Myelodysplastic Syndrome with Chronic Anemia--S/P 1u pRBCs, Hgb up to 7.9, family has considered palliative care 4. Hypertension--stable so far 5. COPD--ongoing tobacco abuse 6. Pulmonary Edema--CXR improving 7. PAD with right BKA--on no plavix or aspirin due to chronic anemia KEVIN BURCH DO November 02, 2021 17:38
[2021-11-02] MEDS: TAMSULOSIN 0.4 MG (FLOMAX) CAP PO SCH (18:43)
[2021-11-03 04:00] VITALS: BP 129/54
[2021-11-03 05:10] LABS: HEMATOCRIT 22 % (40-54); MEAN CORPUSCULAR HEMOGLOBIN 28 pg (25-34); MEAN CORPUSCULAR HGB CONC 32 g/dL (32-36); MEAN CORPUSCULAR VOLUME 87 fL (80-99); MEAN PLATELET VOLUME 11.4 fL (9.0-12.2); PLATELET COUNT 319 10^3/uL (130-400)
[2021-11-03 05:21] LABS: ALBUMIN 2.8 GM/DL (3.2-4.5); POTASSIUM 4.1 MMOL/L (3.6-5.0)
[2021-11-03 05:22] LABS: CALCIUM 7.6 MG/DL (8.5-10.1)
[2021-11-03 05:23] LABS: TOTAL PROTEIN 6.4 GM/DL (6.4-8.2)
[2021-11-03 05:25] LABS: BILIRUBIN,TOTAL 0.3 MG/DL (0.1-1.0)
[2021-11-03 05:27] LABS: CREATININE SERUM 0.89 MG/DL (0.60-1.30)
[2021-11-03 08:00] VITALS: BP 112/50
--- NOTE | 2021-11-03 09:08 | Cardiology Progress Note ---
Subjective Date Seen by Provider: Nov 03, 2021 Time Seen by Provider: 09:07 Subjective/Events-last exam Patient was seen at bedside, laying down comfortably. Reporting that he is feeling better today. Still having generalized fatigue. Review of Systems General: No Chills, No Night Sweats; Fatigue, Malaise; No Appetite, No Other HEENT: No Head Aches, No Visual Changes, No Eye Pain, No Ear Pain, No Dysphasia, No Sinus Congestion, No Post Nasal Drip, No Sore Throat, No Other Pulmonary: No Dyspnea, No Cough, No Pleuritic Chest Pain, No Other Cardiovascular: No: Chest Pain, Palpitations, Orthopnea, Paroxysmal Noc. Dyspnea, Edema, Lt Headedness, Other Objective-Cardiology Exam Last Set of Vital Signs Vital Signs 10/31/21 11/03/21 11/03/21 20:19 04:00 07:00 Temp 36.8 Pulse 47 Resp 16 B/P (MAP) 129/54 (79) Pulse Ox 99 O2 Delivery Nasal Cannula O2 Flow Rate 3.00 FiO2 21 I&O Intake and Output 11/03/21 00:00 Intake Total 920 ml Output Total 1000 ml Balance -80 ml Intake Oral 920 ml Output Urine Total 1000 ml # Bowel Movements 1 General: Alert, Oriented X3, Cooperative HEENT: Atraumatic, PERRLA Neck: Supple, No JVD Lungs: Clear to Auscultation, Normal Air Movement Heart: Normal S1, Normal S2, Other (Systolic murmur at the left sternal border) Abdomen: Normal Bowel Sounds Extremities: No Clubbing, No Cyanosis, Other (Right BKA) Skin: No Rashes Neuro: Normal Speech Psych/Mental Status: Mental Status NL, Mood NL Results Lab Laboratory Tests 11/03/21 04:37 A/P-Cardiology Admission Diagnosis Generalized weakness Bradycardia Paroxysmal atrial fibrillation Sinus node dysfunction Assessment/Plan Generalized weakness, some improvement after blood transfusion. Managed by medical team Anemia, myelodysplastic syndrome History of thrombocytosis and anemia. Received 1 unit packed RBCs. Continue to monitor H&H closely. Sinus bradycardia, patient had episode of severe bradycardia in the emergency room. He was on diltiazem and digoxin, still bradycardic at this time. Digoxin was discontinued Diltiazem was restarted at 120 mg daily. I will add parameter to hold for systolic blood pressure less than 100 and heart rate less than 60 Paroxysmal atrial fibrillation, had loop monitor implanted April 2020. Had few episodes of atrial fibrillation with rapid ventricular response. Backing down on some of the medication and monitor tolerance and response Intolerance to oral anticoagulation due to recurrent bleeding and severe anemia. Peripheral arterial disease, history of right BKA, continue to monitor Myelodysplastic syndrome, thrombocytosis. Followed by Dr. Hannah. Hypertension, monitor blood pressure Tobaccoism, educated in length about smoking cessation. JULISSA BYRD MD Nov 03, 2021 09:08
[2021-11-03] MEDS: dilTIAZem120 MG (CARDIZEM CD) CAP PO SCH (10:32)
[2021-11-03 12:00] VITALS: BP 139/56
--- NOTE | 2021-11-03 12:09 | Oncology Consultation ---
Visit Information Visit Information Date of Admission October 31, 2021 at 17:22 Attending Physician Leeann Gallegos DO Admitting Physician Admitting Physician: Marian Ridley MD Attending Physician: Marian Ridley MD Chief Complaint General weakness, bradycardia, anemia in the setting of MDS Interval History Mr. Khan is a 76 year old white known to me at the cancer for MDS ringsidering anemia transfusion dependent, who presented to ER due to general weakness, bradycardia, hypotensive and diarrhea. He started a new medication revlimide about 3 weeks ago. He has been on nearly weekly RBC transfusion and also has iron overload issues. He had left food chronic wound/lesion due to Hydrea and got better since we started him on revilmide and stop hydrea to thrombocytosis (over a million in the past) which caused him BKA of the right due to arterial clotting issues. I consulted the patient on: 11/03/21 12:00 Time Seen by Provider: 16:00 Review of Systems Constitutional: see HPI Health Status Allergies Coded Allergies: Sulfa (Sulfonamide Antibiotics) (Verified Allergy, Intermediate, 08/31/20) Tetanus Vaccines and Toxoid (Verified Allergy, Unknown, 11/17/18) Home Medications Cholestyramine/Aspartame (Prevalite Packet) 4 Gm Powd.pack, 4 GM PO DAILY@1000, #14 Prescribed by: LEEANN GALLEGOS on 09/03/20 1242 Clopidogrel Bisulfate (Clopidogrel) 75 Mg Tablet, 75 MG PO DAILY, (Reported) Deferasirox (Deferasirox) 360 Mg Tablet, 1,080 MG PO DAILY, (Reported) TAKES 3 (360MG) TABLETS TAKE ON AN EMPTY STOMACH Digoxin (Digoxin) 125 Mcg Tablet, 125 MCG PO DAILY, (Reported) Diltiazem HCl (Diltiazem HCl) 60 Mg Tablet, 60 MG PO QID, (Reported) Finasteride (Finasteride) 5 Mg Tablet, 5 MG PO DAILY, (Reported) Lenalidomide (Revlimid) 10 Mg Capsule, 10 MG PO DAILY, (Reported) Tamsulosin HCl (Flomax) 0.4 Mg Cap, 0.8 MG PO DAILY, (Reported) TAKES 2 (0.4MG) TABLETS OZK-Keepgd-Gtlklo Hx Patient Social History Marrital Status: Smoking Status: Current Everyday Smoker Type Used: Cigarettes Recent Hopitalizations: No Alcohol Use?: No Have you traveled recently?: No Immunizations Up To Date Tetanus Booster (TDap): Less than 5yrs Physical Exam Vital Signs Vital Signs - First Documented 10/31/21 10/31/21 10/31/21 15:51 18:30 20:19 Temp 36.5 Pulse 42 Resp 30 B/P (MAP) 121/41 (67) Pulse Ox 93 O2 Delivery Room Air O2 Flow Rate 3.00 FiO2 21 Capillary Refill : NONE Height, Weight, BMI Height: 6'1.00" Weight: 196lbs. oz. [id number]; 21.16 BMI Method:Stated General Appearance: No Apparent Distress, Chronically ill, Thin Neck: Non Tender Respiratory: No Accessory Muscle Use, No Respiratory Distress Cardiovascular: Regular Rate, Rhythm, Bradycardia Gastrointestinal: Non Tender Extremity: Other (Right BKA, left foot wound healed and closed. ) Neurologic/Psychiatric: Alert Data Review Labs Laboratory Tests 11/04/21 06:12 Laboratory Tests 11/03/21 04:37: White Blood Count 2.0L, Red Blood Count 2.47L, Hemoglobin 7.0L, Hematocrit 22L, Red Cell Distribution Width 14.6H, Carbon Dioxide Level 20L, Calcium Level 7.6L, Aspartate Amino Transf (AST/SGOT) 77H, Alanine Aminotransferase (ALT/SGPT) 81H, Albumin 2.8L 11/04/21 06:12: White Blood Count 1.9L, Red Blood Count 2.54L, Hemoglobin 7.3L, Hematocrit 22L, Calcium Level 7.7L Impression & Plan Impression & Plan IMP: 1. CHF, bradycardia, ?medication overdose. 2. MDS, anemia and transfusion dependent. Recently changed new medication revlimide. ?causing cardiac issue. 3. Thrombocytosis Plt over a million in the past, responded to revlimide well. Plt normalized. 4. h/o right BKA 5. Left foot chronic venous stasis ulcer due to previous hydrea treatment. Now healing nicely since he started revlimide and off hydrea. 6. 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 Rec: 1. Transfusion to keep Hb above 7. 2. f/u with cardiology of bradycardia and CHF. 3. Reduce revlimide to half dose 5mg daily. Possible add low dose of Prednisone if CHF and Plt are stable. I may consider to completely stop the revlimide if he is not any better in next 3-5 days. 4. Daily CBC and CMP. RAYNE COLLINS MD Nov 03, 2021 12:09
[2021-11-03] MEDS ORDERED: FUROSEMIDE 20 MG (LASIX) TAB PO ONE (13:15)
[2021-11-03] MEDS ORDERED: KCL 10 MEQ TAB (MICRO K) PO ONE (13:15)
[2021-11-03] MEDS: FINASTERIDE (PROSCAR) 5 MG TAB PO SCH (13:56)
[2021-11-03 15:02] VITALS: BP 139/56
[2021-11-03 15:59] VITALS: BP 147/55
--- NOTE | 2021-11-03 16:58 | Progress Note ---
Subjective Date Seen by a Provider: Nov 03, 2021 Time Seen by a Provider: 12:50 Subjective/Events-last exam Fwup weakness, bradycardia, pulmonary edema, COPD, myelodysplastic syndrome with chronic anemia, PAD, HTN. Still tired and not eating well. Objective Exam Vital Signs Date Time Temp Pulse Resp B/P (MAP) Pulse Ox O2 Delivery O2 Flow Rate FiO2 11/03/21 15:59 36.5 48 15 147/55 (85) 100 11/03/21 15:02 36.3 49 99 11/03/21 13:00 49 11/03/21 12:00 36.3 46 15 139/56 (83) 99 Nasal Cannula 3.00 11/03/21 09:00 Nasal Cannula 3.00 11/03/21 08:00 36.1 50 15 112/50 (70) 99 Nasal Cannula 3.00 11/03/21 07:00 47 11/03/21 04:00 36.8 45 16 129/54 (79) 99 Nasal Cannula 3.00 11/03/21 01:00 50 11/02/21 23:03 37.5 48 13 130/53 (78) 97 Nasal Cannula 3.00 11/02/21 21:00 Nasal Cannula 3.00 11/02/21 20:00 37.0 46 14 128/47 (74) 99 Nasal Cannula 3.00 11/02/21 19:00 50 I & O 11/03/21 07:00 Intake Total 1070 ml Output Total 1000 ml Balance 70 ml Capillary Refill : NONE General Appearance: No Apparent Distress Neck: Supple Respiratory: Lungs Clear, Decreased Breath Sounds Cardiovascular: Bradycardia, Systolic Murmur Gastrointestinal: normal bowel sounds, non tender, soft Extremity: Non Tender, No Calf Tenderness, No Pedal Edema Neurologic/Psychiatric: Alert Results Lab Laboratory Tests 11/03/21 04:37: White Blood Count 2.0L, Red Blood Count 2.47L, Hemoglobin 7.0L, Hematocrit 22L, Mean Corpuscular Volume 87, Mean Corpuscular Hemoglobin 28, Mean Corpuscular Hemoglobin Concent 32, Red Cell Distribution Width 14.6H, Platelet Count 319, Mean Platelet Volume 11.4, Sodium Level 138, Potassium Level 4.1, Chloride Level 107, Carbon Dioxide Level 20L, Anion Gap 11, Blood Urea Nitrogen 15, Creatinine 0.89, Estimat Glomerular Filtration Rate 88, BUN/Creatinine Ratio 17, Glucose Level 76, Calcium Level 7.6L, Corrected Calcium 8.6, Total Bilirubin 0.3, Aspartate Amino Transf (AST/SGOT) 77H, Alanine Aminotransferase (ALT/SGPT) 81H, Alkaline Phosphatase 66, Total Protein 6.4, Albumin 2.8L Assessment/Plan Assessment/Plan Assess & Plan/Chief Complaint 1. Weakness--multifactorial including anemia, bradycardia, deconditioning, meds 2. Bradycardia/Sick Sinus Syndrome--digoxin on hold and cardizem on hold since this morning 3. Chronic Myelodysplastic Syndrome with Chronic Anemia--S/P 1u pRBCs, Hgb up to 7--will consider tranfusion if drops below 7, family has considered palliative care 4. Hypertension--stable so far with holding cardizem 5. COPD--ongoing tobacco abuse 6. Pulmonary Edema--CXR stable--lasix and potassium today 7. PAD with right BKA--on no plavix or aspirin due to chronic anemia KEVIN BURCH DO Nov 03, 2021 16:58
[2021-11-03] MEDS: TAMSULOSIN 0.4 MG (FLOMAX) CAP PO SCH (17:25)
[2021-11-03 20:10] VITALS: BP 144/56
[2021-11-04] VITALS: BP 143/59
[2021-11-04 04:08] VITALS: BP 156/62
[2021-11-04 08:00] VITALS: BP 119/44
--- NOTE | 2021-11-04 08:12 | Cardiology Progress Note ---
Subjective Date Seen by Provider: Nov 04, 2021 Time Seen by Provider: 08:11 Subjective/Events-last exam Patient was seen at bedside laying down comfortably Denied any chest pain Still having mild fatigue Review of Systems General: No Chills, No Night Sweats; Fatigue; No Malaise, No Appetite, No Other HEENT: No Head Aches, No Visual Changes, No Eye Pain, No Ear Pain, No Dysphasia , No Sinus Congestion, No Post Nasal Drip, No Sore Throat, No Other Pulmonary: No Dyspnea, No Cough, No Pleuritic Chest Pain, No Other Cardiovascular: No: Chest Pain, Palpitations, Orthopnea, Paroxysmal Noc. Dysp latisha, Edema, Lt Headedness, Other Objective-Cardiology Exam Last Set of Vital Signs Vital Signs 10/31/21 11/04/21 11/04/21 20:19 04:08 08:00 Temp 36.2 Pulse 53 Resp 11 B/P (MAP) 119/44 (69) Pulse Ox 98 O2 Delivery Nasal Cannula O2 Flow Rate 3.00 FiO2 21 I&O Intake and Output 11/04/21 00:00 Intake Total 1300 ml Output Total 850 ml Balance 450 ml Intake Oral 1300 ml Output Urine Total 850 ml # Voids 2 # Bowel Movements 4 General: Alert, Oriented X3, Cooperative HEENT: Atraumatic, PERRLA Neck: Supple, No JVD Lungs: Clear to Auscultation, Normal Air Movement Heart: Normal S1, Normal S2, Other (Systolic murmur at the left sternal border) Abdomen: Normal Bowel Sounds Extremities: No Clubbing, No Cyanosis, Other (Right BKA) Skin: No Rashes Neuro: Normal Speech Psych/Mental Status: Mental Status NL, Mood NL A/P-Cardiology Admission Diagnosis Generalized weakness Bradycardia Paroxysmal atrial fibrillation Sinus node dysfunction Assessment/Plan Generalized weakness, some improvement after blood transfusion. Managed by medical team Anemia, myelodysplastic syndrome History of thrombocytosis and anemia. Received 1 unit packed RBCs. Continue to monitor H&H closely. Sinus bradycardia, patient had episode of severe bradycardia in the emergency room. He was on diltiazem and digoxin, still bradycardic at this time. Digoxin was discontinued Diltiazem was discontinued. Still borderline bradycardic. Okay for discharge and follow-up as an outpatient Paroxysmal atrial fibrillation, had loop monitor implanted April 2020. Had few episodes of atrial fibrillation with rapid ventricular response. Backing down on some of the medication and monitor tolerance and response Intolerance to oral anticoagulation due to recurrent bleeding and severe anemia. Peripheral arterial disease, history of right BKA, continue to monitor Myelodysplastic syndrome, thrombocytosis. Followed by Dr. Hannah. Hypertension, monitor blood pressure Tobaccoism, educated in length about smoking cessation. JULISSA BYRD MD Nov 04, 2021 08:12
[2021-11-04 08:18] LABS: HEMATOCRIT 22 % (40-54); HEMOGLOBIN 7.3 g/dL (13.3-17.7); MEAN CORPUSCULAR HEMOGLOBIN 29 pg (25-34); MEAN CORPUSCULAR HGB CONC 33 g/dL (32-36); MEAN CORPUSCULAR VOLUME 87 fL (80-99); MEAN PLATELET VOLUME 10.7 fL (9.0-12.2); PLATELET COUNT 329 10^3/uL (130-400); WHITE BLOOD COUNT 1.9 10^3/uL (4.3-11.0)
[2021-11-04] MEDS: dilTIAZem120 MG (CARDIZEM CD) CAP PO SCH (08:22)
[2021-11-04 08:33] LABS: POTASSIUM 4.1 MMOL/L (3.6-5.0)
[2021-11-04 08:34] LABS: CALCIUM 7.7 MG/DL (8.5-10.1)
[2021-11-04 08:39] LABS: CREATININE SERUM 0.86 MG/DL (0.60-1.30)
--- NOTE | 2021-11-04 10:16 | Progress Note ---
Progress Note Assessment/Plan Date Seen by Provider: Nov 04, 2021 Time Seen by Provider: 10:14 Events since last exam WBC low to 1.9. Hb better at 7.3 and Plt normal. Will stop revilmide. Transfusion support to keep Hb >7.0 Assessment/Plan 1. Weakness--multifactorial including anemia, bradycardia, deconditioning, meds 2. Bradycardia/Sick Sinus Syndrome--digoxin on hold and cardizem on hold since this morning 3. Chronic Myelodysplastic Syndrome with Chronic Anemia--S/P 1u pRBCs, Hgb up to 7--will consider tranfusion if drops below 7, family has considered palliative care 4. Hypertension--stable so far with holding cardizem 5. COPD--ongoing tobacco abuse 6. Pulmonary Edema--CXR stable--lasix and potassium today 7. PAD with right BKA--on no plavix or aspirin due to chronic anemia Vitals Last set of Vitals Signs Vital Signs Date Time Temp Pulse Resp B/P (MAP) Pulse Ox O2 Delivery O2 Flow Rate FiO2 11/04/21 09:00 Nasal Cannula 3.00 11/04/21 08:00 36.5 11/04/21 08:00 53 11 119/44 (69) 11/04/21 04:08 98 10/31/21 20:19 21 I&O I&O Intake and Output 11/04/21 00:00 Intake Total 1300 ml Output Total 850 ml Balance 450 ml Intake Oral 1300 ml Output Urine Total 850 ml # Voids 2 # Bowel Movements 4 Labs Laboratory Tests 11/04/21 06:12: White Blood Count 1.9L, Red Blood Count 2.54L, Hemoglobin 7.3L, Hematocrit 22L, Mean Corpuscular Volume 87, Mean Corpuscular Hemoglobin 29, Mean Corpuscular Hemoglobin Concent 33, Red Cell Distribution Width 14.5, Platelet Count 329, Mean Platelet Volume 10.7, Sodium Level 138, Potassium Level 4.1, Chloride Level 107, Carbon Dioxide Level 21, Anion Gap 10, Blood Urea Nitrogen 13, Creatinine 0.86, Estimat Glomerular Filtration Rate 89, BUN/Creatinine Ratio 15, Glucose Level 75, Calcium Level 7.7L RAYNE COLLINS MD Nov 04, 2021 10:16
--- NOTE | 2021-11-04 10:54 | D/C HH Face to Face Order ---
D/C Face to Face Orders Reconcile Patient Problems Problems Reviewed?: Yes Instructions for Patient Via [facility], Patient Instructions/FollowUp: Fwup 2 weeks Physician to follow Patient: Rosy Discharge Diet for Home: Regular Diet Patient Data-Allergies,Ht & Wt Patient Allergies: Coded Allergies: Sulfa (Sulfonamide Antibiotics) (Verified Allergy, Intermediate, 08/31/20) Tetanus Vaccines and Toxoid (Verified Allergy, Unknown, 11/17/18) Height (Feet): 6 Height (Inches): 1.00 Weight (Pounds): 196 Home Health Need/Face to Face Date of Face to Face: Nov 04, 2021 Clinical Findings: Generalized weakness and fatigue, Instability, Muscle weakness, Shortness of breath, Unsteady gait I have seen Pt [id number]: Yes Discharged To: Other (Assisted Living) Diagnosis/Conditions: Bradycardia Myelodysplatic Syndrome Hypertension COPD Right BKA Patient is Homebound due to: Lisa fall risk due to instabilty, Muscle weakness, Shortness of breath/distress Homebound Status Due to the above stated illness, injury or surgical procedure (medical condition or diagnosis) and associated clinical findings, the patient is homebound because of his/her inability to leave home except with aid of a supportive device and/or person AND leaving the home requires a considerable and taxing effort or is medically contraindicated. Pt req the following assistanc: Wheelchair Home Health Nursing Orders Home Health Services Order: Nursing Services, Car Body Inspector-Evaluate & Treat, Physical Therapy-Evaluate & Treat Therapy Orders BP and pulse checks 3 times a week [facility] requested as well Certify Stmt I certify that this patient is under my care and that I, a nurse practitioner or a physician; a data entry assistant working with me, had a face to face encounter that - meets the physician face to face encounter requirements with this patient as dated. KEVIN BURCH DO Nov 04, 2021 10:53
[2021-11-04] MEDS: FINASTERIDE (PROSCAR) 5 MG TAB PO SCH (12:53)
== END 2021-11-04 14:53 | disposition home or self-care (01) ==
LOC: EDUNIT# 15:41 → ER 15:43 → CSD 17:22
PROVIDERS: ADMIT Family Medicine; ATTEND Family Medicine
DX: D46.9 Myelodysplastic syndrome, unspecified (principal); I48.91 Unspecified atrial fibrillation; I50.9 Heart failure, unspecified; I11.0 Hypertensive heart disease with heart failure; I48.0 Paroxysmal atrial fibrillation; I73.9 Peripheral vascular disease, unspecified; I49.5 Sick sinus syndrome; J84.10 Pulmonary fibrosis, unspecified; I83.028 Varicose veins of left lower extremity with ulcer other part of lower leg; D75.839 Thrombocytosis, unspecified; R19.7 Diarrhea, unspecified; J44.9 Chronic obstructive pulmonary disease, unspecified; J81.1 Chronic pulmonary edema; F17.210 Nicotine dependence, cigarettes, uncomplicated; Z79.899 Other long term (current) drug therapy; Z79.01 Long term (current) use of anticoagulants; Z89.511 Acquired absence of right leg below knee
CPT/HCPCS: 36415; 36430; 71045; 71046; 80048; 80053; 83880; 85025; 85027; 86850; 86900; 86901; 86920; 93005; 93306; G0378

== ENCOUNTER → 2021-11-08 | Day surgery (SDC) | payer MEDICARE ==
[~2021-11-08] VITALS: Wt 74.8 kg
[~2021-11-08] MED LIST changes: +LENA10CA PO; +NS IV 500 ML 500 ML IV SCH; +NS IV 500 ML 500 ML ONE
[2021-11-08 09:35] VITALS: BP 123/48
[2021-11-08 10:40] VITALS: BP 131/54
[2021-11-08 10:55] VITALS: BP 123/48
[2021-11-08 12:29] VITALS: BP 141/52
== END | disposition home or self-care (01) ==
LOC: SDC 09:30
PROVIDERS: ATTEND Internal Medicine Hematology & Oncology
DX: D50.9 Iron deficiency anemia, unspecified (principal)
CPT/HCPCS: 36430; 86850; 86900; 86901; 86920

== ENCOUNTER → 2021-11-19 | Outpatient (CLI) | payer MEDICARE ==
[~2021-11-19] MED LIST changes: -NS IV 500 ML 500 ML ONE
[2021-11-19 12:04] VITALS: BP 123/51
[2021-11-19 12:25] VITALS: BP 131/52
[2021-11-19 12:30] VITALS: BP 131/52
[2021-11-19 14:17] VITALS: BP 120/78
== END ==
LOC: SDC 10:39
PROVIDERS: ATTEND Nurse Practitioner
DX: Z51.81 Encounter for therapeutic drug level monitoring (principal)
CPT/HCPCS: 36415; 36430; 86850; 86900; 86901; 86920

== ENCOUNTER → 2021-12-02 | Outpatient (RCR) | payer MEDICARE ==
[2021-10-20 16:15] VITALS: BP 147/62
[2021-11-08 08:58] LABS: BASOPHILS # (AUTO) 0.1 10^3/uL (0.0-0.1); BASOPHILS % (AUTO) 3 % (0-10); EOSINOPHILS # (AUTO) 0.1 10^3/uL (0.0-0.3); EOSINOPHILS % (AUTO) 2 % (0-10); HEMATOCRIT 22 % (40-54); LYMPHOCYTES # (AUTO) 0.7 10^3/uL (1.0-4.0); LYMPHOCYTES % (AUTO) 29 % (12-44); MEAN CORPUSCULAR HEMOGLOBIN 28 pg (25-34); MEAN CORPUSCULAR HGB CONC 32 g/dL (32-36); MEAN CORPUSCULAR VOLUME 88 fL (80-99); MEAN PLATELET VOLUME 10.4 fL (9.0-12.2); MONOCYTES # (AUTO) 0.4 10^3/uL (0.0-1.0); MONOCYTES % (AUTO) 16 % (0-12); NEUTROPHILS # (AUTO) 1.1 10^3/uL (1.8-7.8); NEUTROPHILS % (AUTO) 48 % (42-75); PLATELET COUNT 403 10^3/uL (130-400); WHITE BLOOD COUNT 2.3 10^3/uL (4.3-11.0)
[2021-11-08 09:00] LABS: HEMOGLOBIN 6.8 g/dL (13.3-17.7)
[2021-11-10 10:27] LABS: BASOPHILS # (AUTO) 0.2 10^3/uL (0.0-0.1); BASOPHILS % (AUTO) 7 % (0-10); EOSINOPHILS # (AUTO) 0.1 10^3/uL (0.0-0.3); EOSINOPHILS % (AUTO) 3 % (0-10); HEMATOCRIT 24 % (40-54); HEMOGLOBIN 7.8 g/dL (13.3-17.7); LYMPHOCYTES # (AUTO) 0.7 10^3/uL (1.0-4.0); LYMPHOCYTES % (AUTO) 30 % (12-44); MEAN CORPUSCULAR HEMOGLOBIN 28 pg (25-34); MEAN CORPUSCULAR HGB CONC 32 g/dL (32-36); MEAN CORPUSCULAR VOLUME 87 fL (80-99); MEAN PLATELET VOLUME 10.6 fL (9.0-12.2); MONOCYTES # (AUTO) 0.4 10^3/uL (0.0-1.0); MONOCYTES % (AUTO) 18 % (0-12); NEUTROPHILS % (AUTO) 42 % (42-75); PLATELET COUNT 387 10^3/uL (130-400); WHITE BLOOD COUNT 2.4 10^3/uL (4.3-11.0)
[2021-11-15 10:00] LABS: BASOPHILS # (AUTO) 0.1 10^3/uL (0.0-0.1); EOSINOPHILS # (AUTO) 0.1 10^3/uL (0.0-0.3); EOSINOPHILS % (AUTO) 3 % (0-10); HEMATOCRIT 22 % (40-54); LYMPHOCYTES # (AUTO) 0.8 10^3/uL (1.0-4.0); LYMPHOCYTES % (AUTO) 32 % (12-44); MEAN CORPUSCULAR HEMOGLOBIN 28 pg (25-34); MEAN CORPUSCULAR HGB CONC 33 g/dL (32-36); MEAN CORPUSCULAR VOLUME 87 fL (80-99); MEAN PLATELET VOLUME 10.4 fL (9.0-12.2); MONOCYTES # (AUTO) 0.3 10^3/uL (0.0-1.0); MONOCYTES % (AUTO) 12 % (0-12); NEUTROPHILS # (AUTO) 1.2 10^3/uL (1.8-7.8); NEUTROPHILS % (AUTO) 46 % (42-75); PLATELET COUNT 484 10^3/uL (130-400); WHITE BLOOD COUNT 2.5 10^3/uL (4.3-11.0)
[2021-11-15 10:03] LABS: BASOPHILS % (AUTO) 6 % (0-10); HEMOGLOBIN 7.2 g/dL (13.3-17.7)
[2021-11-22 09:44] LABS: BASOPHILS % (AUTO) 1 % (0-10); EOSINOPHILS # (AUTO) 0.1 10^3/uL (0.0-0.3); EOSINOPHILS % (AUTO) 3 % (0-10); HEMATOCRIT 23 % (40-54); HEMOGLOBIN 7.4 g/dL (13.3-17.7); LYMPHOCYTES # (AUTO) 0.7 10^3/uL (1.0-4.0); LYMPHOCYTES % (AUTO) 22 % (12-44); MEAN CORPUSCULAR HEMOGLOBIN 28 pg (25-34); MEAN CORPUSCULAR HGB CONC 33 g/dL (32-36); MEAN CORPUSCULAR VOLUME 87 fL (80-99); MONOCYTES # (AUTO) 0.3 10^3/uL (0.0-1.0); MONOCYTES % (AUTO) 9 % (0-12); NEUTROPHILS % (AUTO) 65 % (42-75); PLATELET COUNT 444 10^3/uL (130-400)
[2021-11-22 10:09] LABS: ALBUMIN 3.4 GM/DL (3.2-4.5); BILIRUBIN,TOTAL 0.4 MG/DL (0.1-1.0); CALCIUM 8.3 MG/DL (8.5-10.1); CREATININE SERUM 0.89 MG/DL (0.60-1.30); POTASSIUM 3.9 MMOL/L (3.6-5.0); TOTAL PROTEIN 6.9 GM/DL (6.4-8.2)
[2021-11-25 09:06] LABS: BASOPHILS % (AUTO) 0 % (0-10); EOSINOPHILS # (AUTO) 0.1 10^3/uL (0.0-0.3); EOSINOPHILS % (AUTO) 2 % (0-10); HEMATOCRIT 22 % (40-54); HEMOGLOBIN 7.1 g/dL (13.3-17.7); LYMPHOCYTES # (AUTO) 0.7 10^3/uL (1.0-4.0); LYMPHOCYTES % (AUTO) 18 % (12-44); MEAN CORPUSCULAR HEMOGLOBIN 29 pg (25-34); MEAN CORPUSCULAR HGB CONC 33 g/dL (32-36); MEAN CORPUSCULAR VOLUME 88 fL (80-99); MEAN PLATELET VOLUME 10.1 fL (9.0-12.2); MONOCYTES # (AUTO) 0.3 10^3/uL (0.0-1.0); MONOCYTES % (AUTO) 8 % (0-12); NEUTROPHILS # (AUTO) 2.6 10^3/uL (1.8-7.8); NEUTROPHILS % (AUTO) 70 % (42-75); PLATELET COUNT 487 10^3/uL (130-400); WHITE BLOOD COUNT 3.7 10^3/uL (4.3-11.0)
[2021-11-29 09:14] LABS: BASOPHILS % (AUTO) 0 % (0-10); EOSINOPHILS # (AUTO) 0.1 10^3/uL (0.0-0.3); EOSINOPHILS % (AUTO) 4 % (0-10); LYMPHOCYTES # (AUTO) 0.9 10^3/uL (1.0-4.0); LYMPHOCYTES % (AUTO) 30 % (12-44); MEAN CORPUSCULAR HEMOGLOBIN 28 pg (25-34); MEAN CORPUSCULAR HGB CONC 32 g/dL (32-36); MEAN CORPUSCULAR VOLUME 87 fL (80-99); MEAN PLATELET VOLUME 10.4 fL (9.0-12.2); MONOCYTES # (AUTO) 0.4 10^3/uL (0.0-1.0); MONOCYTES % (AUTO) 13 % (0-12); NEUTROPHILS # (AUTO) 1.5 10^3/uL (1.8-7.8); NEUTROPHILS % (AUTO) 51 % (42-75); PLATELET COUNT 502 10^3/uL (130-400); WHITE BLOOD COUNT 2.9 10^3/uL (4.3-11.0)
[2021-11-29 09:19] LABS: HEMATOCRIT 20 % (40-54); HEMOGLOBIN 6.4 g/dL (13.3-17.7)
[~2021-12-02] MED LIST changes: +NS IV 500 ML 500 ML ONE
[2021-12-02 09:37] LABS: BASOPHILS % (AUTO) 0 % (0-10); EOSINOPHILS # (AUTO) 0.2 10^3/uL (0.0-0.3); EOSINOPHILS % (AUTO) 6 % (0-10); HEMATOCRIT 21 % (40-54); LYMPHOCYTES # (AUTO) 0.6 10^3/uL (1.0-4.0); LYMPHOCYTES % (AUTO) 20 % (12-44); MEAN CORPUSCULAR HEMOGLOBIN 28 pg (25-34); MEAN CORPUSCULAR HGB CONC 33 g/dL (32-36); MEAN CORPUSCULAR VOLUME 87 fL (80-99); MONOCYTES # (AUTO) 0.4 10^3/uL (0.0-1.0); MONOCYTES % (AUTO) 14 % (0-12); NEUTROPHILS # (AUTO) 1.6 10^3/uL (1.8-7.8); NEUTROPHILS % (AUTO) 58 % (42-75); PLATELET COUNT 498 10^3/uL (130-400); WHITE BLOOD COUNT 2.7 10^3/uL (4.3-11.0)
[2021-12-02 09:38] LABS: HEMOGLOBIN 6.9 g/dL (13.3-17.7)
== END | disposition home or self-care (01) ==
LOC: ONC 11-08 08:37
PROVIDERS: ATTEND Internal Medicine Hematology & Oncology
DX: D64.9 Anemia, unspecified (principal)
CPT/HCPCS: 36415; 36430; 80053; 85025; 86850; 86900; 86901; 86920; 99213

== ENCOUNTER 2021-12-20 08:31 | Outpatient (RCR) | payer MEDICARE ==
[2021-10-20 16:15] VITALS: BP 147/62
[2021-12-08 09:19] LABS: BASOPHILS % (AUTO) 1 % (0-10); EOSINOPHILS # (AUTO) 0.1 10^3/uL (0.0-0.3); EOSINOPHILS % (AUTO) 4 % (0-10); HEMATOCRIT 22 % (40-54); HEMOGLOBIN 7.2 g/dL (13.3-17.7); LYMPHOCYTES # (AUTO) 0.7 10^3/uL (1.0-4.0); LYMPHOCYTES % (AUTO) 19 % (12-44); MEAN CORPUSCULAR HEMOGLOBIN 28 pg (25-34); MEAN CORPUSCULAR HGB CONC 33 g/dL (32-36); MEAN CORPUSCULAR VOLUME 87 fL (80-99); MEAN PLATELET VOLUME 9.8 fL (9.0-12.2); MONOCYTES # (AUTO) 0.5 10^3/uL (0.0-1.0); MONOCYTES % (AUTO) 15 % (0-12); NEUTROPHILS # (AUTO) 2.2 10^3/uL (1.8-7.8); NEUTROPHILS % (AUTO) 58 % (42-75); PLATELET COUNT 615 10^3/uL (130-400); WHITE BLOOD COUNT 3.7 10^3/uL (4.3-11.0)
[2021-12-13 09:26] LABS: BASOPHILS % (AUTO) 1 % (0-10); EOSINOPHILS # (AUTO) 0.1 10^3/uL (0.0-0.3); EOSINOPHILS % (AUTO) 2 % (0-10); LYMPHOCYTES # (AUTO) 0.8 10^3/uL (1.0-4.0); LYMPHOCYTES % (AUTO) 13 % (12-44); MEAN CORPUSCULAR HEMOGLOBIN 28 pg (25-34); MEAN CORPUSCULAR HGB CONC 32 g/dL (32-36); MEAN CORPUSCULAR VOLUME 86 fL (80-99); MEAN PLATELET VOLUME 10.2 fL (9.0-12.2); MONOCYTES # (AUTO) 0.8 10^3/uL (0.0-1.0); MONOCYTES % (AUTO) 12 % (0-12); NEUTROPHILS % (AUTO) 63 % (42-75); PLATELET COUNT 695 10^3/uL (130-400); WHITE BLOOD COUNT 6.4 10^3/uL (4.3-11.0)
[2021-12-13 09:28] LABS: HEMATOCRIT 20 % (40-54); HEMOGLOBIN 6.5 g/dL (13.3-17.7)
[2021-12-13 09:47] LABS: ALBUMIN 3.5 GM/DL (3.2-4.5); BILIRUBIN,TOTAL 0.2 MG/DL (0.1-1.0); CALCIUM 8.5 MG/DL (8.5-10.1); CREATININE SERUM 0.86 MG/DL (0.60-1.30); POTASSIUM 3.8 MMOL/L (3.6-5.0); TOTAL PROTEIN 7.1 GM/DL (6.4-8.2)
[2021-12-20 08:58] LABS: BASOPHILS % (AUTO) 0 % (0-10); EOSINOPHILS # (AUTO) 0.1 10^3/uL (0.0-0.3); EOSINOPHILS % (AUTO) 1 % (0-10); LYMPHOCYTES % (AUTO) 13 % (12-44); MEAN CORPUSCULAR HEMOGLOBIN 28 pg (25-34); MEAN CORPUSCULAR HGB CONC 33 g/dL (32-36); MEAN CORPUSCULAR VOLUME 86 fL (80-99); MEAN PLATELET VOLUME 10.2 fL (9.0-12.2); MONOCYTES # (AUTO) 0.7 10^3/uL (0.0-1.0); MONOCYTES % (AUTO) 9 % (0-12); NEUTROPHILS # (AUTO) 5.6 10^3/uL (1.8-7.8); NEUTROPHILS % (AUTO) 72 % (42-75); PLATELET COUNT 571 10^3/uL (130-400); WHITE BLOOD COUNT 7.8 10^3/uL (4.3-11.0)
[2021-12-20 08:59] LABS: HEMOGLOBIN 6.5 g/dL (13.3-17.7)
[2021-12-20 09:00] LABS: HEMATOCRIT 20 % (40-54)
[2021-12-20] MEDS ORDERED: NS IV 500 ML 500 ML IV SCH (09:15)
[2021-12-20] MEDS ORDERED: NS IV 500 ML 500 ML ONE (10:02)
[2021-12-27] MEDS ORDERED: ACET-2267 PO (13:33)
[2021-12-27] MEDS ORDERED: LENA2.5C PO (13:35)
[2021-12-27] MEDS ORDERED: CEPH500C PO (13:36)
[2021-12-27] MEDS ORDERED: CHOL4PAC14 PO (13:37)
[2021-12-29] MEDS ORDERED: Dronabinol PO (16:51)
== END 2021-12-30 16:16 | disposition home or self-care (01) ==
LOC: ONC 08:31
PROVIDERS: ATTEND Internal Medicine Hematology & Oncology
DX: D46.9 Myelodysplastic syndrome, unspecified (principal); D69.6 Thrombocytopenia, unspecified
CPT/HCPCS: 36415; 36430; 80053; 82728; 83540; 83550; 85025; 86850; 86900; 86901; 86920

== ENCOUNTER 2021-12-25 13:22 | Inpatient (IN) | payer MEDICARE ==
[~2021-12-25] VITALS: Ht 187.9 cm; Wt 70.8 kg
[~2021-12-25 13:22] MED LIST changes: -NS IV 500 ML 500 ML IV SCH; -NS IV 500 ML 500 ML ONE
[2021-12-25] MEDS ORDERED: NS IV 500 ML 500 ML IV STA ×2 (13:52→16:05)
--- NOTE | 2021-12-25 13:59 | ED General ---
General Stated Complaint: WEIGHT LOSS,FATIGUE,LOSS APPETITE Source of Information: Patient Exam Limitations: No Limitations (VANESSA PETIT) History of Present Illness Date Seen by Provider: Dec 25, 2021 Time Seen by Provider: 13:56 Initial Comments Patient is a 76-year-old male with a history of mild dysplastic syndrome, paroxysmal atrial fibrillation, Peripheral artery disease, CHF, anemia who presents ED with generalized weakness fatigue decreased appetite not eating or drinking. Patient at bedside states symptoms started about 1 week ago. Received a blood transfusion on Monday. Receives weekly blood transfusions. Has had decreased appetite not wanting to drink fluids at home. Decreased urine output. Diagnosed with UTI yesterday was placed on Keflex. According to patient has not been improving. Had some abdominal discomfort today but had 2 bowel movements with improvement of pain. Patient denies of any current chest pain, cough, abdominal pain, headache, dizziness,, unilateral muscle weakness or sensory changes. denies of any confusion. Patient is not currently taking his digoxin or Cardizem secondary to bradycardia., Patient denies cough, shortness of breath, back pain, nausea, vomiting. Patient is currently taking a medication called Revlimid. (VANESSA PETIT) Allergies and Home Medications Allergies Coded Allergies: Sulfa (Sulfonamide Antibiotics) (Verified Allergy, Intermediate, 08/31/20) Tetanus Vaccines and Toxoid (Verified Allergy, Unknown, 11/17/18) Patient Home Medication List Home Medication List Reviewed: Yes (VANESSA PETIT) Cholestyramine/Aspartame (Prevalite Packet) 4 Gm Powd.pack, 4 GM PO DAILY@1000 Prescribed by: KEVIN BURCH on 09/03/20 1242 Last Action: Held Deferasirox (Deferasirox) 360 Mg Tablet, 1,080 MG PO DAILY, (Reported) Entered as Reported by: JESSICA FLORES on 08/31/20 1508 Last Action: Converted Finasteride (Finasteride) 5 Mg Tablet, 5 MG PO DAILY, (Reported) Entered as Reported by: JOCELYN REVELES on 03/15/19 1229 Last Action: Continued Tamsulosin HCl (Flomax) 0.4 Mg Cap, 0.8 MG PO DAILY, (Reported) Entered as Reported by: JOCELYN REVELES on 10/11/19 1229 Last Action: Continued Review of Systems Review of Systems Constitutional: No diaphoresis; malaise, weakness EENTM: No mouth pain, No mouth swelling Respiratory: No cough, No short of breath Gastrointestinal: abdominal pain, diarrhea; No nausea, No vomiting Genitourinary: decreased output Musculoskeletal: No back pain, No joint pain, No joint swelling, No muscle pain Skin: No change in color, No change in hair/nails (VANESSA PETIT) All Other Systems Reviewed Negative Unless Noted: Yes (VANESSA PETIT) Past Phibwxs-Ctwjnt-Szinob Hx Immunizations Up To Date Tetanus Booster (TDap): Less than 5yrs PED Vaccines UTD: Yes First/Initial COVID19 Vaccinat: [employer]eeper (VANESSA PETIT) Seasonal Allergies Seasonal Allergies: No (VANESSA PETIT) Past Medical History Surgeries: Yes (RIGHT BKA 03/2019;PICC LINE IN R ARM OF 06/30/19;LOOP RECORDER 04/15/20) Amputation, Cardiac, Orthopedic, Tonsillectomy Respiratory: Yes (RESPIRATORY FAILURE WITH SIRS AND PNEUMONIA 04/2019; PNEUMONIA 05/2019) Pneumonia Cardiac: Yes (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;LOOP RECORDER) Atrial Fibrillation, Heart Attack, High Cholesterol, Hypertension, Peripheral Vascular Neurological: No Genitourinary: Yes (HX OF HEMATURIA; HX OF RENAL FAILURE WITH SIRS/PNEUMONIA 04/2019) Benign Prostatic Hyperpl, Bladder Infection Gastrointestinal: Yes (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) Chronic Constipation, Gall Bladder Disease Musculoskeletal: Yes (RIGHT BKA; GENERALIZED WEAKNESS) Amputee Endocrine: No HEENT: Yes Hearing Impairment: Hard of Hearing, Bilateral Hearing Aide Cancer: Yes (MYELODYSPLASTIC DISORDER WITH LEUKOPENIA, ANEMIA AND THROMBOCYTOSIS) Did You Recieve Any Treatments: Yes What Type of Treatment Did You: Chemotherapy Psychosocial: No Integumentary: Yes (LEFT ANKLE /LEFT HEEL WOUND; PYODERMA GANGRENOSUM) Blood Disorders: Yes (refractory anemia /ring sideroblasts W/ thrombocytosis;MYELODYSPLASIA) Adverse Reaction/Blood Tranf: No (VANESSA PETIT) Family Medical History MYELODYSPLASTIC SYNDROME /MYELOPROLIFERATIVE DISORDER WAS DX 2016 IN [place]. HAD BEEN ON HYDROXYUREA, THIS WAS DC'D AND PT HAS BEEN ON ANAGRELIDE SINCE 03/2019. RECEIVES WEEKLY BLOOD TRANSFUSIONS--EVERY MONDAY ADDITIONAL PMH : -NSTEMI 04/23/19. -MULTIPLE EPISODES OF RESPIRATORY FAILURE (VANESSA PETIT) Physical Exam Vital Signs Vital Signs - First Documented 12/25/21 13:47 Temp 37.0 Pulse 62 Resp 16 B/P (MAP) 109/52 (71) Pulse Ox 99 O2 Delivery Room Air (GLORIA WISE MD) Vital Signs Capillary Refill : (VANESSA PETIT) Height, Weight, BMI Height: 6'1.00" Weight: 196lbs. oz. 88.495234yy; 21.16 BMI Method:Stated General Appearance: No Apparent Distress, WD/WN Eyes: Bilateral Eye Normal Inspection, Bilateral Eye PERRL, Bilateral Eye EOMI HEENT: PERRL/EOMI, TMs Normal, Normal ENT Inspection, Pharynx Normal Neck: Full Range of Motion, Normal Inspection, Non Tender, Supple Respiratory: Chest Non Tender, Lungs Clear, Normal Breath Sounds, No Accessory Muscle Use, No Respiratory Distress Cardiovascular: Regular Rate, Rhythm, No Edema, No Gallop Gastrointestinal: Normal Bowel Sounds, No Organomegaly, No Pulsatile Mass, Non Tender Back: Normal Inspection, No CVA Tenderness Extremity: Other (Right BKA) Neurologic/Psychiatric: Alert, Oriented x3, No Motor/Sensory Deficits, Normal Mood/Affect (VANESSA PETIT) Progress/Results/Core Measures Suspected Sepsis SIRS Temperature: Pulse: Respiratory Rate: Laboratory Tests 12/25/21 14:05: White Blood Count 7.5 Blood Pressure / Mean: Laboratory Tests 12/25/21 14:05: Creatinine 1.24, INR Comment 1.3, Platelet Count 450H, Total Bilirubin 0.6 (VANESSA PETIT) Results/Orders Lab Results Laboratory Tests Test 12/25/21 14:05 12/25/21 14:30 12/25/21 17:40 Range/Units White Blood Count 7.5 4.3-11.0 10^3/uL Red Blood Count 2.58 L 4.30-5.52 10^6/uL Hemoglobin 7.4 L 13.3-17.7 g/dL Hematocrit 23 L 40-54 % Mean Corpuscular Volume 88 80-99 fL Mean Corpuscular Hemoglobin 29 25-34 pg Mean Corpuscular Hemoglobin Concent 33 32-36 g/dL Red Cell Distribution Width 15.3 H 10.0-14.5 % Platelet Count 450 H 130-400 10^3/uL Mean Platelet Volume 10.2 9.0-12.2 fL Immature Granulocyte % (Auto) 2 % Neutrophils (%) (Auto) 71 42-75 % Lymphocytes (%) (Auto) 11 L 12-44 % Monocytes (%) (Auto) 15 H 0-12 % Eosinophils (%) (Auto) 1 0-10 % Basophils (%) (Auto) 0 0-10 % Neutrophils # (Auto) 5.3 1.8-7.8 X 10^3 Lymphocytes # (Auto) 0.8 L 1.0-4.0 X 10^3 Monocytes # (Auto) 1.1 H 0.0-1.0 X 10^3 Eosinophils # (Auto) 0.1 0.0-0.3 10^3/uL Basophils # (Auto) 0.0 0.0-0.1 10^3/uL Immature Granulocyte # (Auto) 0.2 H 0.0-0.1 10^3/uL Prothrombin Time 16.4 H 12.2-14.7 SEC INR Comment 1.3 0.8-1.4 Activated Partial Thromboplast Time 53 H 24-35 SEC Sodium Level 138 135-145 MMOL/L Potassium Level 4.6 3.6-5.0 MMOL/L Chloride Level 103 98-107 MMOL/L Carbon Dioxide Level 23 21-32 MMOL/L Anion Gap 12 5-14 MMOL/L Blood Urea Nitrogen 17 7-18 MG/DL Creatinine 1.24 0.60-1.30 MG/DL Estimat Glomerular Filtration Rate 60 BUN/Creatinine Ratio 14 Glucose Level 82 70-105 MG/DL Calcium Level 8.8 8.5-10.1 MG/DL Corrected Calcium 9.0 8.5-10.1 MG/DL Magnesium Level 1.8 1.6-2.4 MG/DL Total Bilirubin 0.6 0.1-1.0 MG/DL Aspartate Amino Transf (AST/SGOT) 59 H 5-34 U/L Alanine Aminotransferase (ALT/SGPT) 65 H 0-55 U/L Alkaline Phosphatase 86 40-136 U/L Total Protein 7.8 6.4-8.2 GM/DL Albumin 3.8 3.2-4.5 GM/DL Influenza Type A (RT-PCR) Not Detected Not Detecte Influenza Type B (RT-PCR) Not Detected Not Detecte SARS-CoV-2 RNA (RT-PCR) Not Detected Not Detecte Urine Color YELLOW Urine Clarity CLEAR Urine pH 5.5 5-9 Urine Specific [place] >=1.030 1.016-1.022 Urine Protein 2+ H NEGATIVE Urine Glucose (UA) NEGATIVE NEGATIVE Urine Ketones NEGATIVE NEGATIVE Urine Nitrite NEGATIVE NEGATIVE Urine Bilirubin NEGATIVE NEGATIVE Urine Urobilinogen 0.2 < = 1.0 MG/DL Urine Leukocyte Esterase 2+ H NEGATIVE Urine RBC (Auto) TRACE-I H NEGATIVE Urine RBC RARE /HPF Urine WBC 50-100 H /HPF Urine Squamous Epithelial Cells RARE /HPF Urine Crystals NONE /LPF Urine Bacteria TRACE /HPF Urine Casts PRESENT /LPF Urine Hyaline Casts 2-5 H /LPF Urine Mucus SMALL H /LPF Urine Culture Indicated YES (GLORIA WISE MD) Vital Signs/I&O 12/25/21 13:47 Temp 37.0 Pulse 62 Resp 16 B/P (MAP) 109/52 (71) Pulse Ox 99 O2 Delivery Room Air 12/26/21 00:00 Intake Total 500 ml Balance 500 ml (GLORIA WISE MD) Vital Signs/I&O Capillary Refill : (VANESSA PETIT) ECG Comment Sinus rhythm, possible right ventricular hypertrophy, lateral myocardial infarction of indeterminate age, 61 bpm, QRS duration 114 MS, QTc 450 MS (VANESSA PETIT) Departure Communication (Admissions) Time/Spoke to Admitting Phy: 18:31 Dr. Maya (VANESSA PETIT) Communication (PCP) Patient with continuous weakness over the past week. Started on Keflex yesterday for UTI. Increased weakness today. According to family not wanting to eat or drink at home. Had a blood transfusion this past Monday. Patient sees Dr. Garcias oncology. Patient hemoglobin 7.4. Normal white blood count. He is afebrile. Vital signs otherwise stable. Took a lengthy time for patient to urinate. Reports continued decreased urine output over the past week. Bladder scan showed 90 ml. Chemistry was otherwise unremarkable. COVID influenza negative. Patient did eventually urinate after liter of fluid. Positive for UTI. Due to his current symptoms, anemia which may require blood transfusion, failed outpatient therapy for UTI patient will be admitted for further evaluation. Patient was discussed with Dr. Maya who accepts patient. 2 units of blood are on hold currently. Patient was given Rocephin. Susceptibility to previous UTI in 2020 (VANESSA PETIT) Impression Primary Impression: UTI (urinary tract infection) Disposition: ADMITTED INPATIENT Condition: Stable Admissions Decision to Admit Reason: Admit from ER (General) Decision to Admit/Date: Dec 25, 2021 Time/Decision to Admit Time: 18:31 (VANESSA PETIT) Departure-Patient Inst. Referrals: KEVIN BURCH DO (PCP/Family) Primary Care Physician ATTENDING PHYSICIAN NOTE: I was physically present as attending physician in the emergency department during the care of this patient, but I was not directly involved in the decision making or delivery of care for this patient. (GLROIA WISE MD) VANESSA PETIT Dec 25, 2021 13:59 GLORIA WISE MD Dec 26, 2021 16:37
[2021-12-25 14:14] LABS: BASOPHILS % (AUTO) 0 % (0-10); EOSINOPHILS # (AUTO) 0.1 10^3/uL (0.0-0.3); EOSINOPHILS % (AUTO) 1 % (0-10); HEMATOCRIT 23 % (40-54); HEMOGLOBIN 7.4 g/dL (13.3-17.7); LYMPHOCYTES # (AUTO) 0.8 X 10^3 (1.0-4.0); LYMPHOCYTES % (AUTO) 11 % (12-44); MEAN CORPUSCULAR HEMOGLOBIN 29 pg (25-34); MEAN CORPUSCULAR HGB CONC 33 g/dL (32-36); MEAN CORPUSCULAR VOLUME 88 fL (80-99); MEAN PLATELET VOLUME 10.2 fL (9.0-12.2); MONOCYTES # (AUTO) 1.1 X 10^3 (0.0-1.0); MONOCYTES % (AUTO) 15 % (0-12); NEUTROPHILS # (AUTO) 5.3 X 10^3 (1.8-7.8); NEUTROPHILS % (AUTO) 71 % (42-75); PLATELET COUNT 450 10^3/uL (130-400); WHITE BLOOD COUNT 7.5 10^3/uL (4.3-11.0)
[2021-12-25 14:31] LABS: ALBUMIN 3.8 GM/DL (3.2-4.5); POTASSIUM 4.6 MMOL/L (3.6-5.0)
[2021-12-25 14:32] LABS: CALCIUM 8.8 MG/DL (8.5-10.1)
[2021-12-25 14:34] LABS: TOTAL PROTEIN 7.8 GM/DL (6.4-8.2)
[2021-12-25 14:35] LABS: BILIRUBIN,TOTAL 0.6 MG/DL (0.1-1.0)
[2021-12-25 14:37] LABS: CREATININE SERUM 1.24 MG/DL (0.60-1.30)
[2021-12-25 14:38] LABS: INR 1.3 (0.8-1.4); PROTHROMBIN TIME PATIENT 16.4 SEC (12.2-14.7)
[2021-12-25 14:40] LABS: MAGNESIUM 1.8 MG/DL (1.6-2.4)
--- NOTE | 2021-12-25 14:50 | Diagnostic Imaging Report ---
INDICATION: Cough. COMPARISON: 11/02/2021. EXAMINATION: Single radiograph of the chest dated December 25, 2021. FINDINGS: Loop recorder is again seen overlying the left chest. The cardiac silhouette is within normal limits in size. No significant pulmonary vascular congestion. Background chronic interstitial opacities are again identified and similar to the prior examination. No new focal pulmonary opacity. No pleural effusion. No pneumothorax. No acute osseous abnormality. IMPRESSION: 1. Persistent chronic interstitial lung changes, felt to relate to background chronic interstitial lung disease without superimposed acute cardiopulmonary abnormality. 2. Additional stable findings as above. Dictated by: Dictated on workstation # [id number]
[2021-12-25 17:49] LABS: BILIRUBIN,URINE NEGATIVE (NEGATIVE); CLARITY,URINE CLEAR; COLOR,URINE YELLOW; GLUCOSE, URINE (UA) NEGATIVE (NEGATIVE); KETONES,URINE NEGATIVE (NEGATIVE); LEUKOCYTE ESTERASE ,URINE 2+ (NEGATIVE); NITRITE,URINE NEGATIVE (NEGATIVE); PH,URINE 5.5 (5-9); PROTEIN,URINE 2+ (NEGATIVE)
[2021-12-25 18:13] LABS: BACTERIA,URINE TRACE /HPF; RBC,URINE RARE /HPF; SQUAMOUS EPITHELIAL CELL,UR RARE /HPF; WBC,URINE 50-100 /HPF
[2021-12-25] MEDS ORDERED: cefTRIAXone 1 GM PRE-MIX 50 ML IV STA (18:30)
[2021-12-25 21:02] VITALS: BP 117/51
[2021-12-25] MEDS ORDERED: ACETAMINOPHEN 325 MG TABLET PO PRN (21:15)
[2021-12-25] MEDS ORDERED: CATHETER FLUSH 10 ML SYR IVP PRN (21:15)
[2021-12-25] MEDS ORDERED: ONDANSETRON 4 MG/2 ML (SDV) Z0FRAN IV PRN (21:15)
[2021-12-25] MEDS ORDERED: NS IV 1000 ML 1,000 ML IV ONE ×2 (21:45→22:00)
[2021-12-25] MEDS: CATHETER FLUSH 10 ML SYR IVP SCH (21:50)
[2021-12-26] VITALS (11 sets, daily range): BP systolic 105–145; BP diastolic 56–74
[2021-12-26] MEDS: CATHETER FLUSH 10 ML SYR IVP SCH ×4 (05:33→20:36)
[2021-12-26 06:52] LABS: BASOPHILS % (AUTO) 0 % (0-10); EOSINOPHILS # (AUTO) 0.1 10^3/uL (0.0-0.3); EOSINOPHILS % (AUTO) 2 % (0-10); LYMPHOCYTES # (AUTO) 0.6 10^3/uL (1.0-4.0); LYMPHOCYTES % (AUTO) 11 % (12-44); MEAN CORPUSCULAR HEMOGLOBIN 29 pg (25-34); MEAN CORPUSCULAR HGB CONC 32 g/dL (32-36); MEAN CORPUSCULAR VOLUME 89 fL (80-99); MEAN PLATELET VOLUME 10.4 fL (9.0-12.2); MONOCYTES # (AUTO) 0.9 10^3/uL (0.0-1.0); MONOCYTES % (AUTO) 17 % (0-12); NEUTROPHILS # (AUTO) 3.7 10^3/uL (1.8-7.8); NEUTROPHILS % (AUTO) 68 % (42-75); PLATELET COUNT 391 10^3/uL (130-400); WHITE BLOOD COUNT 5.4 10^3/uL (4.3-11.0)
[2021-12-26 07:08] LABS: POTASSIUM 4.3 MMOL/L (3.6-5.0)
[2021-12-26 07:10] LABS: CALCIUM 8.1 MG/DL (8.5-10.1)
[2021-12-26 07:14] LABS: CREATININE SERUM 0.99 MG/DL (0.60-1.30)
[2021-12-26 07:16] LABS: HEMATOCRIT 19 % (40-54); HEMOGLOBIN 6.1 g/dL (13.3-17.7)
[2021-12-26] MEDS ORDERED: NS IV 500 ML 500 ML IV SCH (08:00)
--- NOTE | 2021-12-26 08:50 | History & Physical ---
History of Present Illness History of Present Illness Reason for visit/HPI Pt is a 76 y/o male who is a clinic patient of Dr. 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 The pt presented to the hospital with complaints of weakness, fatigue, not eating or drinking well at home with poor urine output. Pt recently has hx of UTI and was placed on Keflex as an outpatient. Pt has history of MDS (mild dysplastic syndrome), chronic paroxysmal atrial fibrillation, PAD with hx of amputation of right leg below knee. Pt receives weekly blood transfusions, his oncologist is Dr. Fry. (per ER provider report he is not taking his digoxin or Cardizem secondary to bradycardia). Date of Admission Dec 25, 2021 at 18:19 Date Seen by a Provider: Dec 26, 2021 Time Seen by a Provider: 08:40 Attending Physician Kevin Gallegos DO Admitting Physician Admitting Physician: Derrick Maya MD Attending Physician: Derrick Maya MD Consult Allergies and Home Medications Allergies Coded Allergies: Sulfa (Sulfonamide Antibiotics) (Verified Allergy, Intermediate, 08/31/20) Tetanus Vaccines and Toxoid (Verified Allergy, Unknown, 11/17/18) Patient Home Medication List Home Medication List Reviewed: Yes Cholestyramine/Aspartame (Prevalite Packet) 4 Gm Powd.pack, 4 GM PO DAILY@1000 Prescribed by: KEVIN GALLEGOS on 09/03/20 1242 Last Action: Held Deferasirox (Deferasirox) 360 Mg Tablet, 1,080 MG PO DAILY, (Reported) Entered as Reported by: JESSICA FLORES on 08/31/20 1508 Last Action: Converted Finasteride (Finasteride) 5 Mg Tablet, 5 MG PO DAILY, (Reported) Entered as Reported by: JOCELYN REVELES on 03/15/19 122 Last Action: Continued Tamsulosin HCl (Flomax) 0.4 Mg Cap, 0.8 MG PO DAILY, (Reported) Entered as Reported by: JOCELYN REVELES on 03/15/191228 Last Action: Continued Past Pgzexhd-Xnszkf-Jckxdl Hx Patient Social History Marrital Status: Living Status: lives at home with spouse Employed/Student: retired Tobacco Use?: Yes Tobacco type used: Cigars Smoking Status: Current Everyday Smoker Use of E-Cig and/or Vaping dev: No Substance use?: No Alcohol Use?: No Pt feels they are or have been: No Immunizations Up To Date First/Initial COVID19 Vaccinat: Paresh & Paresh Second COVID19 Vaccination Brendon: Paresh & Paresh Tetanus Booster (TDap): Unknown Hepatitis A: No Hepatitis B: No PED Vaccines UTD: Yes Seasonal Allergies Seasonal Allergies: No Current Status Advance Directives: Yes Advance Directive Location: Copy from prev record Communicates: Verbally Primary Language: Guatemalan Preferred Spoken Language: Guatemalan Is interpretation needed?: No Sensory deficits: Vision impairment Implanted or Applied Medical D: None Past Medical History Surgeries: Amputation, Cardiac, Orthopedic, Tonsillectomy Pneumonia Atrial Fibrillation, Heart Attack, High Cholesterol, Hypertension, Peripheral Vascular Benign Prostatic Hyperpl, Bladder Infection Chronic Constipation, Gall Bladder Disease Amputee Hearing Impairment: Hard of Hearing, Bilateral Hearing Aide Did You Recieve Any Treatments: Yes What Type of Treatment Did You: Chemotherapy Blood Disorders: Yes (refractory anemia /ring sideroblasts W/ thrombocytosis;MYELODYSPLASIA) Adverse Reaction/Blood Tranf: No Family Medical History Reviewed Nursing Family Hx Hypertension MYELODYSPLASTIC SYNDROME /MYELOPROLIFERATIVE DISORDER WAS DX 2016 IN [place]. HAD BEEN ON HYDROXYUREA, THIS WAS DC'D AND PT HAS BEEN ON ANAGRELIDE SINCE 03/2019. RECEIVES WEEKLY BLOOD TRANSFUSIONS--EVERY MONDAY ADDITIONAL PMH : -NSTEMI 04/23/19. -MULTIPLE EPISODES OF RESPIRATORY FAILURE Review of Systems Constitutional: No chills; dizziness; No fever; malaise, weakness EENTM: hearing loss; No hoarseness, No throat pain Respiratory: No cough, No dyspnea on exertion, No short of breath Cardiovascular: No chest pain, No palpitations Gastrointestinal: No abdominal pain, No diarrhea, No hematemesis; loss of appetite; No nausea, No vomiting Genitourinary: no symptoms reported (pt denies hematuria, but he has bloody urine in the urinal at bedside) Musculoskeletal: other (amputation right leg below knee, and pain in left foot) Skin: other (no acute concerns) Psychiatric/Neurological: Denies Anxiety, Denies Depressed All Other Systems Reviewed Negative Unless Noted: Yes Physical Exam Vital Signs Vital Signs - First Documented 12/25/21 13:47 Temp 37.0 Pulse 62 Resp 16 B/P (MAP) 109/52 (71) Pulse Ox 99 O2 Delivery Room Air Capillary Refill : Less Than 3 Seconds Height, Weight, BMI Height: 6'1.00" Weight: 196lbs. oz. 88.261608sl; 20.05 BMI Method:Stated General Appearance: Chronically ill, Thin HEENT: PERRL/EOMI, Pharynx Normal Neck: Full Range of Motion, Non Tender, Supple Respiratory: Chest Non Tender, Lungs Clear, Normal Breath Sounds, No Accessory Muscle Use, No Respiratory Distress Cardiovascular: Bradycardia, Systolic Murmur Gastrointestinal: Normal Bowel Sounds, No Organomegaly, No Pulsatile Mass, Non Tender, Soft Rectal: Deferred Extremity: No Pedal Edema, Other (right below the knee amputation, scar on dorsum of left foot, left 5th digit tender with movement.) Neurologic/Psychiatric: Alert, Oriented x3, Other (flat affect) Skin: Normal Color, Warm/Dry Lymphatic: No Adenopathy Assessment/Plan Assessment and Plan Urinary tract infection Hematuria Dehydration Myelodysplastic syndrome, transfusion dependent BPH Transfusion related iron overload syndrome Paroxysmal Atrial Fibrillation Bradycardia Urinary tract infection with Hematuria - reviewed previous infection culture reports show sensitivity to cephalosporins. - continue with Rocephin Dehydration - pt given several boluses of fluid in the ER, will resume IV fluids today at NS 100mL/hr. Myelodysplastic syndrome, transfusion dependent - consult to Dr. Fry tomorrow. BPH - resumed proscar and flomax. Transfusion related iron overload syndrome - resume home regimen Paroxysmal Atrial Fibrillation with current Bradycardia - monitor heart rate, pt on telemetry. Due to his anemia, and leg pain from PAD will hold off on anticoagulation as well as scd's for now. gi prophylaxis with ppi therapy Admission Diagnosis Urinary tract infection Hematuria Dehydration Myelodysplastic syndrome, transfusion dependent BPH Transfusion related iron overload syndrome Paroxysmal Atrial Fibrillation Bradycardia Admission Status: Inpatient Order (span 2 midnights) Reason for Inpatient Admission: pt qualifies for inpt admission for severe anemia, urinary tract infection, dehydration with need for at least 2-3 midnights in the hospital for treatment and recovery DERRICK MAYA MD Dec 26, 2021 08:50
[2021-12-26 09:02] LABS: ALBUMIN 3.3 GM/DL (3.2-4.5)
[2021-12-26 09:05] LABS: TOTAL PROTEIN 6.7 GM/DL (6.4-8.2)
[2021-12-26 09:07] LABS: BILIRUBIN,TOTAL 0.3 MG/DL (0.1-1.0)
[2021-12-26 09:10] LABS: BILIRUBIN,DIRECT 0.2 MG/DL (0.0-0.3); BILIRUBIN,INDIRECT 0.1 MG/DL
[2021-12-26] MEDS: NS IV 1000 ML 1,000 ML IV SCH (10:04)
[2021-12-26] MEDS ORDERED: NS IV 1000 ML 1,000 ML IV SCH (11:30)
[2021-12-26] MEDS: PANTOPRAZOLE 40 MG (PROTONIX) TAB PO SCH (11:32)
[2021-12-26 13:09] LABS: HEMOGLOBIN 7.9 g/dL (13.3-17.7)
[2021-12-26] MEDS ORDERED: cefTRIAXone 1,000 MG VIAL IM SCH (18:00)
[2021-12-26] MEDS ORDERED: cefTRIAXone 1 GM PRE-MIX 50 ML IV ONE (19:27)
[2021-12-27] MEDS: NS IV 1000 ML 1,000 ML IV SCH ×2 (00:49→11:32)
[2021-12-27 03:34] VITALS: BP 132/58
[2021-12-27] MEDS: CATHETER FLUSH 10 ML SYR IVP SCH ×3 (05:02→20:02)
[2021-12-27 07:46] VITALS: BP 157/58
--- NOTE | 2021-12-27 07:55 | Diagnostic Imaging Report ---
INDICATION: Cough PA and lateral views of the chest obtained with comparison made to study of 11/02/2021. Heart size is within normal limits. Interstitial prominence persists bilaterally. There is no pneumothorax, consolidation or significant pleural fluid. IMPRESSION: Prominent interstitial markings are similar to previous study. This could be due to edema or component of background fibrosis. Dictated by: Dictated on workstation # [id number]
[2021-12-27 08:35] LABS: BASOPHILS % (AUTO) 0 % (0-10); EOSINOPHILS # (AUTO) 0.1 10^3/uL (0.0-0.3); EOSINOPHILS % (AUTO) 3 % (0-10); HEMATOCRIT 22 % (40-54); HEMOGLOBIN 7.2 g/dL (13.3-17.7); LYMPHOCYTES # (AUTO) 0.8 10^3/uL (1.0-4.0); LYMPHOCYTES % (AUTO) 17 % (12-44); MEAN CORPUSCULAR HEMOGLOBIN 29 pg (25-34); MEAN CORPUSCULAR HGB CONC 33 g/dL (32-36); MEAN CORPUSCULAR VOLUME 87 fL (80-99); MEAN PLATELET VOLUME 10.2 fL (9.0-12.2); MONOCYTES # (AUTO) 0.7 10^3/uL (0.0-1.0); MONOCYTES % (AUTO) 16 % (0-12); NEUTROPHILS # (AUTO) 2.8 10^3/uL (1.8-7.8); NEUTROPHILS % (AUTO) 62 % (42-75); PLATELET COUNT 380 10^3/uL (130-400); WHITE BLOOD COUNT 4.5 10^3/uL (4.3-11.0)
[2021-12-27] MEDS: TAMSULOSIN 0.4 MG (FLOMAX) CAP PO SCH (08:46)
[2021-12-27] MEDS: PANTOPRAZOLE 40 MG (PROTONIX) TAB PO SCH (08:46)
[2021-12-27] MEDS: FINASTERIDE (PROSCAR) 5 MG TAB PO SCH (08:46)
[2021-12-27 08:57] LABS: ALBUMIN 3.1 GM/DL (3.2-4.5); BILIRUBIN,TOTAL 0.3 MG/DL (0.1-1.0); CREATININE SERUM 0.94 MG/DL (0.60-1.30); MAGNESIUM 1.7 MG/DL (1.6-2.4); POTASSIUM 3.9 MMOL/L (3.6-5.0); TOTAL PROTEIN 6.5 GM/DL (6.4-8.2)
[2021-12-27] MEDS ORDERED: DEFERASIROX 1080 MG PO SCH (09:00)
[2021-12-27 11:29] VITALS: BP 151/63
[2021-12-27 12:16] LABS: BAND NEUTROPHILS 12 %; BASOPHILS % (MANUAL) 0 %; EOSINOPHILS % (MANUAL) 4 %; LYMPHOCYTES % (MANUAL) 14 %; METAMYELOCYTES % 1 %; MONOCYTES % (MANUAL) 14 %; NEUTROPHILS % (MANUAL) 55 %
[2021-12-27 12:17] LABS: ANISOCYTOSIS SLIGHT; ELLIPT/OVALOCYTES SLIGHT; POIKILOCYTOSIS SLIGHT
--- NOTE | 2021-12-27 13:08 | Progress Note ---
Subjective Date Seen by a Provider: Dec 27, 2021 Time Seen by a Provider: 13:04 Subjective/Events-last exam Fwup dehydration, UTI, weakness, acute on chronic anemia, MDS, PAD. abnormal weight loss. Patient still not eating and drinking well. states she can no longer handle him at [place]. Discussed looking into SNF for short-term vs long- term placement. Objective Exam Vital Signs Date Time Temp Pulse Resp B/P (MAP) Pulse Ox O2 Delivery O2 Flow Rate FiO2 12/27/21 12:00 55 12/27/21 11:29 36.9 52 18 151/63 (92) 97 Room Air 12/27/21 07:46 36.5 52 18 157/58 (91) 98 Room Air 12/27/21 07:35 Room Air 12/27/21 07:09 52 12/27/21 03:34 36.8 50 18 132/58 (82) 97 Room Air 12/27/21 01:00 54 12/26/21 23:58 37.0 54 20 131/59 (83) 98 Room Air 12/26/21 19:39 36.5 55 18 140/57 (84) 95 Room Air 12/26/21 19:25 Room Air 12/26/21 19:00 55 12/26/21 15:52 37.0 52 18 135/61 (85) 96 Room Air I & O 12/27/21 07:00 Intake Total 2325 ml Output Total 1670 ml Balance 655 ml Capillary Refill : Less Than 3 Seconds General Appearance: No Apparent Distress Respiratory: Lungs Clear Cardiovascular: Regular Rate, Rhythm Gastrointestinal: normal bowel sounds, non tender, soft Extremity: Non Tender, No Calf Tenderness, No Pedal Edema Neurologic/Psychiatric: Alert, Oriented x3 Results Lab Laboratory Tests 12/27/21 08:20: White Blood Count 4.5, Red Blood Count 2.52L, Hemoglobin 7.2L, Hematocrit 22L, Mean Corpuscular Volume 87, Mean Corpuscular Hemoglobin 29, Mean Corpuscular Hemoglobin Concent 33, Red Cell Distribution Width 15.5H, Platelet Count 380, Mean Platelet Volume 10.2, Immature Granulocyte % (Auto) 2, Neutrophils (%) (Auto) 62, Lymphocytes (%) (Auto) 17, Monocytes (%) (Auto) 16H, Eosinophils (%) (Auto) 3, Basophils (%) (Auto) 0, Neutrophils # (Auto) 2.8, Lymphocytes # (Auto) 0.8L, Monocytes # (Auto) 0.7, Eosinophils # (Auto) 0.1, Basophils # (Auto) 0.0, Immature Granulocyte # (Auto) 0.1, Neutrophils % (Manual) 55, Lymphocytes % (Manual) 14, Monocytes % (Manual) 14, Eosinophils % (Manual) 4, Basophils % (Manual) 0, Metamyelocytes % 1, Band Neutrophils 12, Poikilocytosis SLIGHT, Anisocytosis SLIGHT, Elliptocytes SLIGHT, Sodium Level 137, Potassium Level 3.9, Chloride Level 107, Carbon Dioxide Level 21, Anion Gap 9, Blood Urea Nitrogen 16, Creatinine 0.94, Estimat Glomerular Filtration Rate 83, BUN/Creatinine Ratio 17, Glucose Level 73, Calcium Level 8.0L, Corrected Calcium 8.7, Magnesium Level 1.7, Total Bilirubin 0.3, Aspartate Amino Transf (AST/SGOT) 55H, Alanine Aminotransferase (ALT/SGPT) 58H, Alkaline Phosphatase 69, Total Protein 6.5, Albumin 3.1L Microbiology 12/25/21 Urine Culture - Final, Complete NO GROWTH Assessment/Plan Assessment/Plan Assess & Plan/Chief Complaint 1. Acute Dehydration--improved with IVFs 2. Acute UTI--improving with IV abx 3. Acute on Chronic Anemia--S/P transfusion, Hemoglobin 7.2 this morning 4. Weakness/Fall Risk--start PT/OT--look into SNF 5. Weight Loss/Anorexia--start marinol 6. MDS with elevated LFTs--likely med related Have also discussed hospice with patient and family in recent past KEVIN BURCH DO Dec 27, 2021 13:08
[2021-12-27] MEDS ORDERED: EYE WASH 118 ML BTL OS PRN ×2 (13:15→14:15)
[2021-12-27] MEDS ORDERED: ACET-2267 PO (13:33)
[2021-12-27] MEDS ORDERED: LENA2.5C PO (13:35)
[2021-12-27] MEDS ORDERED: CEPH500C PO (13:36)
[2021-12-27] MEDS ORDERED: CHOL4PAC14 PO (13:37)
--- NOTE | 2021-12-27 13:48 | Occupational Therapy Eval ---
OT Evaluation-General/PLF Medical Diagnosis Admission Date Dec 25, 2021 at 18:19 Medical Diagnosis: UTI, anemia Onset Date: Dec 25, 2021 Therapy Diagnosis Therapy Diagnosis: impaired adl staus Height/Weight Height (Feet): 6 Height (Inches): 1.00 Weight (Pounds): 196 Precautions Precautions/Isolations: Fall Prevention, Standard Precautions Referral Referral Reason: Evaluation/Treatment Medical History Pertinent Medical History: Atrial Fib Additional Medical History mild dysplastic syndrome, R BKA, pt receives weekly blood transfusions Current History Pt arrived to ER with c/o weakness, fatigue, and not eating/drinking. Per patient, he lives with his in an AL facility. When asked if pt was indep with adls prior to admission his response was "well you know I only have 1 leg, so it's as good as anyone with 1 leg could do." Pt denies doing any of the IADLs. He states he uses a walker to transfer in/out of w/c or he will wear his prosthetic. ADL-Prior Level of Function SCALE: Activities may be completed with or without assistive devices. 5-Onpkcdjmbw-xuecsyu completes the activity by him/herself with no assistance from a helper. 5-Set-up or Clean-up Assistance-helper sets up or cleans up; patient completes activity. [place] assists only prior to or following the activity. 4-Supervision or Touching Assistance-helper provides verbal cues and/or touching/steadying and/or contact guard assistance as patient completes activity. Assistance may be provided throughout the activity or intermittently. 3-Partial/Moderate Assistance-helper does LESS THAN HALF the effort. [place] lifts, holds or supports trunk or limbs, but provides less than half the effort. 2-Substantial/Maximal Assistance-helper does MORE THAN HALF the effort. [place] lifts or holds trunk or limbs and provides more than half the effort. 8-Lzfjxylpy-hmxipy does ALL the effort. Patient does none of the effort to complete the activity. Or, the assistance of 2 or more helpers is required for the patient to complete the activity. If activity was not attempted, code reason: 7-Patient Refused. 9-Not Applicable-not attempted and the patient did not perform the activity before the current illness, exacerbation or injury. 10-Not Attempted due to Environmental Limitations-(lack of equipment, weather restraints, etc.). 88-Not Attempted due to Medical Conditions or Safety Concerns. Self Care: Unknown Functional Cognition: Needed Some Help OT Current Status Subjective When asked if pt was indep with adls prior to admission his response was "well you know I only have 1 leg, so it's as good as anyone with 1 leg could do." Appearance Pt returned to supine in bed, all needs within reach. RN notified Mental Status/Objective Patient Orientation: Person, Confused, Place Current Glasses/Contacts: Yes Hearing Aids: Yes (bilateral ) Hand Dominance: Right Upper Extremity ROM WNL Upper Extremity Strength 4/5 grossly ADL-Treatment Eating (QC): 5 On/Off Footwear (QC): 4 Pt sleeping in bed at OT arrival. Easy to rouse. Supine<>sit: Independent. Good sitting balance at EOB. Pt able to don/doff L sock without difficulty. He refuses to transfer to commode as he reports "I don't need to use it, why would I transfer there." Pt unable to be redirected on purpose of assessment. Per RN, pt has been transferring on/off commode with SBA-CGA. RN also states that pt's has reported that she can no longer take care of the patient. was in the bathroom the entire time of OT evaluation and did not come out to speak with OT. Unsure of patient's baseline or true level of assist secondary to limited assessment/refusal. Education OT Patient Education: Modified ADL techniques, Purpose of tx/functional activities, Safety issues Teaching Recipient: Patient Teaching Methods: Discussion Response to Teaching: Verbalize Understanding, Return Demonstration, Reinforcement Needed OT Custodial Goals Custodial Goals Time Frame: Jan 03, 2022 Oral Hygiene (QC): 5 Toileting Hygiene (QC): 4 Shower/Bathe Self (QC): 4 Upper Body Dressing (QC): 5 Lower Body Dressing (QC): 4 On/Off Footwear (QC): 5 1=Demonstrate adherence to instructed precautions during ADL tasks. 2=Patient will verbalize/demonstrate understanding of assistive devices/modifications for ADL. 3=Patient will improve strength/tolerance for activity to enable patient to perform ADL's. OT Education/Plan Problem List/Assessment Assessment: Decreased Activ Tolerance, Decreased Safety Aware, Decreased UE Strength, Impaired Cognition, Impaired Self-Care Skills Discharge Recommendations Plan/Recommendations: Continue POC Target Placement ongoing assessment needed Treatment Plan/Plan of Care Treatment,Training & Education: Yes Patient would benefit from OT for education, treatment and training to promote independence in ADL's, mobility, safety and/or upper extremity function for ADL's. Plan of Care: ADL Retraining, Caregiver Training, Cognitive Retraining, Functional Mobility, Group Exercise/Act as Ind, UE Funct Exercise/Act, W/C Management Training Treatment Duration: Jan 03, 2022 Frequency: 3 times per week (3-5x/week) Estimated Hrs Per Day: .25 hour per day Rehab Potential: Poor Time/GCodes Start Time: 13:26 Stop Time: 13:37 Total Time Billed (hr/min): 11 Billed Treatment Time 1 visit Trisha Storm OT Dec 27, 2021 13:47
[2021-12-27] MEDS ORDERED: predniSONE 20 MG TAB PO NR (14:00)
[2021-12-27] MEDS ORDERED: LORATADINE (CLARITIN) 10 MG TAB PO NR (14:00)
--- NOTE | 2021-12-27 14:40 | Physical Therapy Evaluation ---
PT Evaluation-General Medical Diagnosis Admission Date Dec 25, 2021 at 18:19 Medical Diagnosis: UTI, anemia Onset Date: Dec 25, 2021 Therapy Diagnosis Therapy Diagnosis: debility Height/Weight Height (Feet): 6 Height (Inches): 1.00 Weight (Pounds): 196 Precautions Precautions/Isolations: Fall Prevention, Standard Precautions Referral Physician: Rosy Reason for Referral: Evaluation/Treatment Medical History Pertinent Medical History: Atrial Fib, PVD Additional Medical History right BKA Current History ER secondary to weight loss, fatigue and loss of appetite Reviewed History: Yes Social History Home: Single Level Current Living Status: Spouse Entry Into Home: Level Entry Prior Prior Level of Function SCALE: Activities may be completed with or without assistive devices. 5-Cxdskmaezs-hbvjbfd completes the activity by him/herself with no assistance from a helper. 5-Set-up or Clean-up Assistance-helper sets up or cleans up; patient completes activity. [place] assists only prior to or following the activity. 4-Supervision or Touching Assistance-helper provides verbal cues and/or touching/steadying and/or contact guard assistance as patient completes activity. Assistance may be provided throughout the activity or intermittently. 3-Partial/Moderate Assistance-helper does LESS THAN HALF the effort. [place] lifts, holds or supports trunk or limbs, but provides less than half the effort. 2-Substantial/Maximal Assistance-helper does MORE THAN HALF the effort. [place] lifts or holds trunk or limbs and provides more than half the effort. 7-Lydbsapho-amrrqp does ALL the effort. Patient does none of the effort to complete the activity. Or, the assistance of 2 or more helpers is required for the patient to complete the activity. If activity was not attempted, code reason: 7-Patient Refused. 9-Not Applicable-not attempted and the patient did not perform the activity before the current illness, exacerbation or injury. 10-Not Attempted due to Environmental Limitations-(lack of equipment, weather restraints, etc.). 88-Not Attempted due to Medical Conditions or Safety Concerns. Bed Mobility: 6 Transfers (B,C,W/C): 6 Gait: 9 Stairs: 9 Wheelchair Mobility: 6 Indoor Mobility (Ambulation): Not [place] Stairs: Not [place] Prior Devices Use: Manual wheelchair PT Evaluation-Current Subjective Patient states, "What is physical therapy going to do for me that I can't already do. I don't walk because I like the w/c." Objective Patient Orientation: Normal For Age Attachments: IV ROM/Strength ROM Lower Extremities right BKA (WFL)/left LE WFL Strength Lower Extremities left LE 4/5 grossly Integumentary/Posture Bowel Incontinence: Yes Bladder Incontinence: Yes Posture slightly kyphotic Sensory Vision: Functional Hearing: Functional Hand Dominance: Right Transfers Roll Left to Right (QC): 6 Sit to Lying (QC): 6 Lying to Sitting/Side of Bed(Q: 6 Sit to Stand (QC): 6 Chair/Dkg-kg-Ebpgm Xfer(QC): 6 Gait Does the Patient Walk?: No and Walking Goal NOT indicated Balance Sitting Static: Normal Sitting Dynamic: Normal Standing Static: Normal Assessment/Needs Patient is currently at OF with all gross motor skills. Patient does not ambulate prior to this admit per his report. No skilled PT indicated. Rehab Potential: Fair PT Plan Treatment/Plan Treatment Plan: Discontinue PT, goals met Treatment Duration: Dec 27, 2021 Frequency: 1 time per week Estimated Hrs Per Day: .25 hour per day Patient and/or Family Agrees t: Yes Time/GCodes Time In: 1411 Time Out: 142 Total Billed Treatment Time: 10 Total Billed Treatment 1 visit EVLowC 10 min SUBHASH MATTHEWS PT Dec 27, 2021 14:40
[2021-12-27] MEDS: DRONABINOL 2.5 MG (MARINOL) CAP PO SCH (15:14)
[2021-12-27 16:43] VITALS: BP 131/63
[2021-12-27] MEDS ORDERED: cefTRIAXone 1,000 MG VIAL IV SCH (18:00)
[2021-12-27] MEDS: cefTRIAXone 1 GM PRE-MIX 50 ML IV SCH (18:09)
[2021-12-27 19:29] VITALS: BP 156/66
[2021-12-28] VITALS (7 sets, daily range): BP systolic 130–184; BP diastolic 54–85
[2021-12-28] MEDS: NS IV 1000 ML 1,000 ML IV SCH ×3 (02:54→21:05)
[2021-12-28] MEDS: CATHETER FLUSH 10 ML SYR IVP SCH ×3 (03:04→14:26)
[2021-12-28 05:58] LABS: BASOPHILS % (AUTO) 0 % (0-10); EOSINOPHILS % (AUTO) 1 % (0-10); HEMATOCRIT 22 % (40-54); HEMOGLOBIN 7.1 g/dL (13.3-17.7); LYMPHOCYTES # (AUTO) 0.5 10^3/uL (1.0-4.0); LYMPHOCYTES % (AUTO) 9 % (12-44); MEAN CORPUSCULAR HEMOGLOBIN 28 pg (25-34); MEAN CORPUSCULAR HGB CONC 32 g/dL (32-36); MEAN CORPUSCULAR VOLUME 88 fL (80-99); MEAN PLATELET VOLUME 10.4 fL (9.0-12.2); MONOCYTES # (AUTO) 0.7 10^3/uL (0.0-1.0); MONOCYTES % (AUTO) 13 % (0-12); NEUTROPHILS # (AUTO) 4.1 10^3/uL (1.8-7.8); NEUTROPHILS % (AUTO) 75 % (42-75); PLATELET COUNT 410 10^3/uL (130-400); WHITE BLOOD COUNT 5.4 10^3/uL (4.3-11.0)
[2021-12-28 06:12] LABS: ALBUMIN 3.2 GM/DL (3.2-4.5); POTASSIUM 4.5 MMOL/L (3.6-5.0)
[2021-12-28 06:13] LABS: CALCIUM 8.1 MG/DL (8.5-10.1)
[2021-12-28 06:15] LABS: TOTAL PROTEIN 6.8 GM/DL (6.4-8.2)
[2021-12-28 06:16] LABS: BILIRUBIN,TOTAL 0.2 MG/DL (0.1-1.0)
[2021-12-28 06:20] LABS: BAND NEUTROPHILS 25 %; HYPOCHROMASIA SLIGHT; LYMPHOCYTES % (MANUAL) 12 %; MONOCYTES % (MANUAL) 15 %; NEUTROPHILS % (MANUAL) 48 %
[2021-12-28 06:21] LABS: ANISOCYTOSIS SLIGHT; MICROCYTOSIS SLIGHT
[2021-12-28] MEDS: LORATADINE (CLARITIN) 10 MG TAB PO SCH (08:10)
[2021-12-28] MEDS: TAMSULOSIN 0.4 MG (FLOMAX) CAP PO SCH (08:10)
[2021-12-28] MEDS: PANTOPRAZOLE 40 MG (PROTONIX) TAB PO SCH (08:10)
[2021-12-28] MEDS: FINASTERIDE (PROSCAR) 5 MG TAB PO SCH (08:10)
[2021-12-28] MEDS: DRONABINOL 2.5 MG (MARINOL) CAP PO SCH ×2 (11:34→15:55)
--- NOTE | 2021-12-28 13:01 | Progress Note ---
Subjective Date Seen by a Provider: Dec 28, 2021 Time Seen by a Provider: 12:58 Subjective/Events-last exam Fwup dehydration, UTI, weakness, acute on chronic anemia, MDS, PAD. abnormal weight loss. Patient admits he is not at his baseline for transfers and feels more unsteady. states his mobility and strength have declined over past several months. His appetite is better today. Objective Exam Vital Signs Date Time Temp Pulse Resp B/P (MAP) Pulse Ox O2 Delivery O2 Flow Rate FiO2 12/28/21 11:41 36.3 54 18 155/66 (95) 98 Room Air 12/28/21 08:40 Room Air 12/28/21 08:00 36.3 58 18 184/85 (118) 98 Room Air 12/28/21 06:46 52 12/28/21 04:35 36.5 54 18 138/65 (89) 99 Room Air 12/28/21 01:00 57 12/28/21 00:28 36.8 57 18 130/65 (86) 96 Room Air 12/27/21 20:06 Room Air 12/27/21 19:29 36.1 56 18 156/66 (96) 98 Room Air 12/27/21 19:00 55 12/27/21 16:43 35.8 50 18 131/63 (85) 98 Room Air I & O 12/28/21 07:00 Intake Total 3450 ml Output Total 600 ml Balance 2850 ml Capillary Refill : Less Than 3 Seconds General Appearance: No Apparent Distress Respiratory: Lungs Clear Cardiovascular: Regular Rate, Rhythm Gastrointestinal: normal bowel sounds, non tender, soft Extremity: Non Tender, No Calf Tenderness, No Pedal Edema Neurologic/Psychiatric: Alert, Oriented x3 Results Lab Laboratory Tests 12/28/21 05:45: White Blood Count 5.4, Red Blood Count 2.51L, Hemoglobin 7.1L, Hematocrit 22L, Mean Corpuscular Volume 88, Mean Corpuscular Hemoglobin 28, Mean Corpuscular Hemoglobin Concent 32, Red Cell Distribution Width 15.2H, Platelet Count 410H, Mean Platelet Volume 10.4, Immature Granulocyte % (Auto) 2, Neutrophils (%) (Auto) 75, Lymphocytes (%) (Auto) 9L, Monocytes (%) (Auto) 13H, Eosinophils (%) (Auto) 1, Basophils (%) (Auto) 0, Neutrophils # (Auto) 4.1, Lymphocytes # (Auto) 0.5L, Monocytes # (Auto) 0.7, Eosinophils # (Auto) 0.0, Basophils # (Auto) 0.0, Immature Granulocyte # (Auto) 0.1, Neutrophils % (Manual) 48, Lymphocytes % (Manual) 12, Monocytes % (Manual) 15, Band Neutrophils 25, Hypochromasia SLIGHT, Anisocytosis SLIGHT, Microcytosis SLIGHT, Sodium Level 139, Potassium Level 4.5, Chloride Level 108H, Carbon Dioxide Level 21, Anion Gap 10, Blood Urea Nitrogen 18, Creatinine 1.00, Estimat Glomerular Filtration Rate 77, BUN/Creatinine Ratio 18, Glucose Level 109H, Calcium Level 8.1L, Corrected Calcium 8.7, Total Bilirubin 0.2, Aspartate Amino Transf (AST/SGOT) 51H, Alanine Aminotransferase (ALT/SGPT) 58H, Alkaline Phosphatase 76, Total Protein 6.8, Albumin 3.2 Microbiology 12/25/21 Urine Culture - Final, Complete NO GROWTH Assessment/Plan Assessment/Plan Assess & Plan/Chief Complaint 1. Acute Dehydration--improved with IVFs 2. Acute UTI--improving with IV abx 3. Acute on Chronic Anemia--S/P transfusion, Hemoglobin 7.1 this morning 4. Weakness/Fall Risk--continue PT/OT--awaiting SNF placement 5. Weight Loss/Anorexia--continue marinol 6. MDS with elevated LFTs--likely med related Have also discussed hospice with patient and family in recent past KEVIN BURCH DO Dec 28, 2021 13:01
--- NOTE | 2021-12-28 13:16 | Occupational Ther Daily Note ---
OT Current Status-Daily Note Subjective When asked how patient was feeling today he responded with "when compared to when" Appearance Pt returned to supine in bed, all needs within reach Mental Status/Objective Attachments: IV, Telemetry ADL-Treatment Therapy Code Descriptions/Definitions Functional Floweree Measure: 0=Not Assessed/NA 4=Minimal Assistance 1=Total Assistance 5=Supervision or Setup 2=Maximal Assistance 6=Modified Floweree 3=Moderate Assistance 7=Complete IndependenceSCALE: Activities may be completed with or without assistive devices. 5-Nqheoetgrd-wpsqbxb completes the activity by him/herself with no assistance from a helper. 5-Set-up or Clean-up Assistance-helper sets up or cleans up; patient completes activity. Sublimity assists only prior to or following the activity. 4-Supervision or Touching Assistance-helper provides verbal cues and/or touching/steadying and/or contact guard assistance as patient completes activity. Assistance may be provided throughout the activity or intermittently. 3-Partial/Moderate Assistance-helper does LESS THAN HALF the effort. Sublimity lifts, holds or supports trunk or limbs, but provides less than half the effort. 2-Substantial/Maximal Assistance-helper does MORE THAN HALF the effort. Sublimity lifts or holds trunk or limbs and provides more than half the effort. 5-Pkcdbnhni-pufean does ALL the effort. Patient does none of the effort to complete the activity. Or, the assistance of 2 or more helpers is required for the patient to complete the activity. If activity was not attempted, code reason: 7-Patient Refused. 9-Not Applicable-not attempted and the patient did not perform the activity before the current illness, exacerbation or injury. 10-Not Attempted due to Environmental Limitations-(lack of equipment, weather restraints, etc.). 88-Not Attempted due to Medical Conditions or Safety Concerns. Eating (QC): 5 Oral Hygiene (QC): 5 (per clinical judgment) On/Off Footwear: 5 Toileting Hygiene (QC): 6 Toilet Transfer (QC): 6 Supine<>sit: Indep. Patient able to transfer on/off commode independently, speedy with task but not unsteady. Other Treatment OT introduced and instructed pt on UE exercises with green theraband. Several verbal and tactile cues for correct technique. It appeared as if pt was performing exercises incorrectly on purpose. Pt performs all movements very slowly, taking significant time to complete 1 set of 10. Shoulder flexion, bicep curl, and triceps extension completed only. Education OT Patient Education: Correct positioning, Exercise program, Progress toward Goal/Update tx plan, Purpose of tx/functional activities Teaching Recipient: Patient Teaching Methods: Demonstration, Discussion Response to Teaching: Verbalize Understanding OT Fpc Goals Fpc Goals Time Frame: Jan 03, 2022 Oral Hygiene (QC): 5 Toileting Hygiene (QC): 4 Shower/Bathe Self (QC): 4 Upper Body Dressing (QC): 5 Lower Body Dressing (QC): 4 On/Off Footwear (QC): 5 1=Demonstrate adherence to instructed precautions during ADL tasks. 2=Patient will verbalize/demonstrate understanding of assistive devices/modifications for ADL. 3=Patient will improve strength/tolerance for activity to enable patient to perform ADL's. OT Education/Plan Problem List/Assessment Assessment: No Skilled OT Needs ID'd (Pt at baseline for adls ) Discharge Recommendations Plan/Recommendations: Discharge/Goals Met Therapy Discharge Recommendati: Home & Family (return to assisted living ) Target Placement return to assisted living Treatment Plan/Plan of Care Treatment,Training & Education: Yes Patient would benefit from OT for education, treatment and training to promote independence in ADL's, mobility, safety and/or upper extremity function for ADL's. Plan of Care: ADL Retraining, Caregiver Training, Cognitive Retraining, Functional Mobility, Group Exercise/Act as Ind, UE Funct Exercise/Act, W/C Management Training Treatment Duration: Jan 03, 2022 Frequency: 3 times per week (3-5x/week) Estimated Hrs Per Day: .25 hour per day Rehab Potential: Fair Time/GCodes Start Time: 12:51 Stop Time: 13:08 Total Time Billed (hr/min): 17 Billed Treatment Time 1 visit EX Trisha Vides OT Dec 28, 2021 13:16
[2021-12-28] MEDS: cefTRIAXone 1 GM PRE-MIX 50 ML IV SCH (15:56)
[2021-12-29] VITALS (8 sets, daily range): BP systolic 134–174; BP diastolic 52–73
[2021-12-29] MEDS: CATHETER FLUSH 10 ML SYR IVP SCH ×3 (05:34→22:13)
[2021-12-29] MEDS: TAMSULOSIN 0.4 MG (FLOMAX) CAP PO SCH (09:05)
[2021-12-29] MEDS: FINASTERIDE (PROSCAR) 5 MG TAB PO SCH (09:05)
[2021-12-29] MEDS: LORATADINE (CLARITIN) 10 MG TAB PO SCH (09:05)
[2021-12-29] MEDS: PANTOPRAZOLE 40 MG (PROTONIX) TAB PO SCH (09:05)
[2021-12-29] MEDS: NS IV 1000 ML 1,000 ML IV SCH (09:06)
[2021-12-29] MEDS: DRONABINOL 2.5 MG (MARINOL) CAP PO SCH ×2 (11:32→15:45)
[2021-12-29 13:33] LABS: HEMATOCRIT 21 % (40-54); MEAN CORPUSCULAR HEMOGLOBIN 29 pg (25-34); MEAN CORPUSCULAR HGB CONC 33 g/dL (32-36); MEAN CORPUSCULAR VOLUME 89 fL (80-99); MEAN PLATELET VOLUME 10.4 fL (9.0-12.2); PLATELET COUNT 472 10^3/uL (130-400); WHITE BLOOD COUNT 4.7 10^3/uL (4.3-11.0)
[2021-12-29 13:38] LABS: HEMOGLOBIN 6.9 g/dL (13.3-17.7)
[2021-12-29] MEDS ORDERED: NS IV 500 ML 500 ML IV SCH (16:45)
[2021-12-29] MEDS ORDERED: Dronabinol PO (16:51)
[2021-12-29] MEDS: cefTRIAXone 1 GM PRE-MIX 50 ML IV SCH (17:01)
--- NOTE | 2021-12-29 17:07 | Progress Note ---
Subjective Date Seen by a Provider: Dec 29, 2021 Time Seen by a Provider: 12:45 Subjective/Events-last exam Fwup dehydration, UTI, weakness, acute on chronic anemia, MDS, PAD. abnormal weight loss. Still not eating well. Did not get shower done yesterday. Was denied by [facility] for SNF. agrees to take him back to Independent Living at [facility] with outpatient PT and see how he does but he has to eat and drink. Objective Exam Vital Signs Date Time Temp Pulse Resp B/P (MAP) Pulse Ox O2 Delivery O2 Flow Rate FiO2 12/29/21 16:20 36.3 50 19 134/52 (79) 99 Room Air 12/29/21 12:13 37.1 58 18 154/67 (96) 100 Room Air 12/29/21 09:26 Room Air 12/29/21 08:03 36.6 55 19 171/72 (105) 100 Room Air 12/29/21 03:33 36.4 48 19 160/62 (94) 99 Room Air 12/28/21 23:40 36.5 48 19 151/61 (91) 96 Room Air 12/28/21 20:02 Room Air 12/28/21 19:30 36.0 89 19 149/56 (87) 92 Room Air I & O 12/29/21 07:00 Intake Total 2500 ml Output Total 900 ml Balance 1600 ml Capillary Refill : Less Than 3 Seconds General Appearance: No Apparent Distress Respiratory: Lungs Clear Cardiovascular: Regular Rate, Rhythm Gastrointestinal: non tender, soft Extremity: Non Tender, No Calf Tenderness, No Pedal Edema Neurologic/Psychiatric: Alert, Oriented x3 Results Lab Laboratory Tests 12/29/21 13:15: White Blood Count 4.7, Red Blood Count 2.38L, Hemoglobin 6.9*L, Hematocrit 21L, Mean Corpuscular Volume 89, Mean Corpuscular Hemoglobin 29, Mean Corpuscular Hemoglobin Concent 33, Red Cell Distribution Width 15.5H, Platelet Count 472H, Mean Platelet Volume 10.4 Microbiology 12/25/21 Urine Culture - Final, Complete NO GROWTH Assessment/Plan Assessment/Plan Assess & Plan/Chief Complaint 1. Acute Dehydration--improved with IVFs 2. Acute UTI--improving with IV abx 3. Acute on Chronic Anemia--repeat transfusion of 1u pRBCS as Hemoglobin down to 6.9 4. Weakness/Fall Risk--continue PT/OT--back to Independent Living at [facility] with outpatient PT 5. Weight Loss/Anorexia--continue marinol 6. MDS with elevated LFTs--likely med related Have also discussed hospice with patient and family in recent past KEVIN BURCH DO Dec 29, 2021 17:07
[2021-12-30 00:50] VITALS: BP 137/55
[2021-12-30 03:55] VITALS: BP 163/62
[2021-12-30] MEDS: CATHETER FLUSH 10 ML SYR IVP SCH (05:48)
[2021-12-30] MEDS: NS IV 1000 ML 1,000 ML IV SCH (05:48)
[2021-12-30 07:53] VITALS: BP 157/67
[2021-12-30] MEDS: PANTOPRAZOLE 40 MG (PROTONIX) TAB PO SCH (09:19)
[2021-12-30] MEDS: LORATADINE (CLARITIN) 10 MG TAB PO SCH (09:20)
[2021-12-30] MEDS: DRONABINOL 2.5 MG (MARINOL) CAP PO SCH (09:20)
[2021-12-30] MEDS: TAMSULOSIN 0.4 MG (FLOMAX) CAP PO SCH (09:20)
[2021-12-30] MEDS: FINASTERIDE (PROSCAR) 5 MG TAB PO SCH (09:20)
[2021-12-30 11:24] VITALS: BP 145/64
[2021-12-30 13:15] VITALS: BP 145/64
--- NOTE | 2021-12-31 17:06 | Discharge Summary ---
Diagnosis/Chief Complaint Date of Admission Dec 25, 2021 at 18:19 Date of Discharge Dec 30, 2021 at 13:16 Discharge Date: Dec 30, 2021 Discharge Diagnosis 1. Acute Dehydration--improved with IVFs 2. Acute UTI with failed outpatient treatment--improving with IV abx 3. Acute on Chronic Anemia--H/H stable after 2u of pRBCs during hospital stay, gets weekly lab draws per oncology 4. Weakness/Fall Risk--continue PT/OT--back to Independent Living at [facility] with outpatient PT 5. Weight Loss/Anorexia--continue marinol 6. MDS with elevated LFTs--likely med related, managed by oncology 7. Left eye edema--resolved 8. PAD--awaiting cardiovascular evaluation at [facility] 9. 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 Tobacco Abuse Discharge Summary Hospital Course Was the Problem List Reviewed?: Yes Hospital Course This is a 76 year old male who presented to the hospital with complaints of weakness, fatigue, not eating or drinking well at home with poor urine output. He had just started antibiotics for a UTI as an outpatient. He resides at [facility] with his and has a history of MDS (myelodysplastic syndrome), paroxysmal atrial fibrillation, PAD with hx of amputation of right leg below knee. He receives weekly blood draws and blood transfusions due to refractory anemia. His oncologist is Dr. Fry. He was admitted to the medical floor and given IV fluids as well as treated with rocephin for his UTI. His hemoglobin dropped to 6.1 on hospital day #2 and he was given 1 unit of pRBCs. Follow this transfusion, his hemoglobin went to 7.9 but had dropped to 6.9 by discharge so he was given another unit of pRBCs. His abdominal pain and right flank pain improved after 48hrs of antibiotics and IVFs. However, his appetite and fluid intake remained poor. His felt like she could not take him back to Independent living in the condition he was in--still not eating or drinking and being unsteady with transfers due to weakne ss. PT and OT were ordered and a SNF evaluation was done. Marinol was also started to help stimulate the patient's appetite. His appetite and fluid intake did improve slightly by discharge. [facility] due to his frequent blood transfusions and his therapy notes indicating he felt like he did not need therapy because he wasn't going to walk. It was decided to discharge him back to Independent Living at [facility] with outpatient therapy and continue the marinol and see how he did. He will follow up with me in my office in 2 weeks. Labs Laboratory Tests 12/29/21 13:15: Red Blood Count 2.38L, Hemoglobin 6.9*L, Hematocrit 21L, Red Cell Distribution Width 15.5H, Platelet Count 472H 12/30/21 13:22: Procedures None. Discharge Physical Examination Allergies: Coded Allergies: Sulfa (Sulfonamide Antibiotics) (Verified Allergy, Intermediate, 08/31/20) Tetanus Vaccines and Toxoid (Verified Allergy, Unknown, 11/17/18) Vitals & I&Os Vital Signs Date Time Temp Pulse Resp B/P (MAP) Pulse Ox O2 Delivery O2 Flow Rate FiO2 12/30/21 13:15 37.2 53 18 145/64 100 Room Air 0.00 General Appearance: Alert, Oriented X3, No Acute Distress Respiratory: Clear to Auscultation Cardiovascular: Regular Rate Abdominal: Normal Bowel Sounds, Soft Extremities: Other (right BKA) Neuro: Other (right BKA, unsteady balance/transfers) Psych/Mental Status: Mental Status NL Discharge Home Medications Reviewed and agree with Discharge Medication list on patient's Discharge Instruction sheet Instructions to Patient/Family Please see electronic discharge instructions given to patient. KEVIN BURCH DO Dec 31, 2021 17:06
== END 2021-12-30 13:16 | disposition home or self-care (01) | DRG 641 ==
LOC: EDUNIT# 13:22 → ER 13:24 → 4TH 18:19
PROVIDERS: ADMIT Family Medicine; ATTEND Family Medicine
DX: E86.0 Dehydration (principal); N39.0 Urinary tract infection, site not specified; D46.9 Myelodysplastic syndrome, unspecified; I48.0 Paroxysmal atrial fibrillation; I73.9 Peripheral vascular disease, unspecified; I50.9 Heart failure, unspecified; Z89.511 Acquired absence of right leg below knee; I25.2 Old myocardial infarction; E78.00 Pure hypercholesterolemia, unspecified; N40.0 Benign prostatic hyperplasia without lower urinary tract symptoms; F17.210 Nicotine dependence, cigarettes, uncomplicated; R31.9 Hematuria, unspecified; R00.1 Bradycardia, unspecified; R53.1 Weakness; R63.4 Abnormal weight loss; R63.0 Anorexia; Z68.20 Body mass index [BMI] 20.0-20.9, adult; H02.846 Edema of left eye, unspecified eyelid; T50.905A Adverse effect of unspecified drugs, medicaments and biological substances, initial encounter
CPT/HCPCS: 36415; 71045; 71046; 80048; 80053; 80076; 81000; 83735; 85007; 85014; 85018; 85025; 85027; 85610; 85730; 86850; 86900; 86901; 86920; 87088; 87636; 93005

== ENCOUNTER 2022-01-17 10:07 | Outpatient (CLI) | payer MEDICARE ==
[~2022-01-17] VITALS: Wt 70.8 kg
[~2022-01-17 10:07] MED LIST changes: +ACET-2267 PO; +CEPH500C PO; +CHOL4POW4 PO; +Dronabinol PO; +LENA2.5C PO
[2022-01-17] MEDS ORDERED: NS IV 500 ML 500 ML ONE (10:20)
[2022-01-17] MEDS ORDERED: NS IV 500 ML 500 ML IV ONE (10:30)
[2022-01-17 10:33] VITALS: BP_SYST 102; BP_SYST 147; BP_DIAS 54; BP_DIAS 82
[2022-01-17 10:55] VITALS: BP 97/47
[2022-01-17 11:10] VITALS: BP 110/48
[2022-01-17 12:50] VITALS: BP 134/59
== END 2022-01-17 13:40 | disposition home or self-care (01) ==
LOC: SDC 10:07
PROVIDERS: ATTEND Internal Medicine Hematology & Oncology
DX: D64.9 Anemia, unspecified (principal)
CPT/HCPCS: 36430; 86850; 86900; 86901; 86920

== ENCOUNTER 2022-01-25 15:27 | Outpatient (RCR) | payer MEDICARE | END 2022-02-02 | disposition home or self-care (01) | PROVIDERS: ATTEND Family Medicine | DX: R53.1 Weakness (principal) ==

== ENCOUNTER 2022-01-26 21:04 | Emergency (ER) | payer MEDICARE ==
[~2022-01-26] VITALS: Ht 188 cm; Wt 70.7 kg
[2022-01-26 21:15] VITALS: BP 105/48
--- NOTE | 2022-01-26 21:56 | ED Lower Extremity ---
General Chief Complaint: Lower Extremity Stated Complaint: L FOOT PAIN Source: patient Exam Limitations: no limitations History of Present Illness Date Seen by Provider: Jan 26, 2022 Time Seen by Provider: 21:54 Allergies and Home Medications Allergies Coded Allergies: Sulfa (Sulfonamide Antibiotics) (Verified Allergy, Intermediate, 08/31/20) Tetanus Vaccines and Toxoid (Verified Allergy, Unknown, 11/17/18) Patient Home Medication List Acetaminophen (Tylenol Extra Strength) 500 Mg Tablet, 500 MG PO Q8H PRN for PAIN-MILD (1-4), (Reported) Entered as Reported by: BRUCE MENCHACA on 12/27/21 1333 Cephalexin (Cephalexin) 500 Mg Capsule, 500 MG PO TID, (Reported) Entered as Reported by: BRUCE MENCHACA on 12/27/21 1336 Cholestyramine (with Sugar) (Cholestyramine Packet) 4 Gram Powd.pack, 4 GM PO DAILY, (Reported) Entered as Reported by: BRUCE MENCHACA on 12/27/21 1337 Finasteride (Finasteride) 5 Mg Tablet, 5 MG PO DAILY, (Reported) Entered as Reported by: JOCELYN REVELES on 03/15/19 1229 Lenalidomide (Revlimid) 2.5 Mg Capsule, 2.5 MG PO HS, (Reported) Entered as Reported by: BRUCE MENCHACA on 12/27/21 1335 Tamsulosin HCl (Flomax) 0.4 Mg Cap, 0.8 MG PO DAILY, (Reported) Entered as Reported by: JOCELYN REVELES on 03/15/19 1229 [Dronabinol] 2.5 MG CAP, 2.5 MG PO DAILY@11,16 Prescribed by: KEVIN BURCH on 12/29/21 1651 Past Jaiimoh-Wgtohy-Gyljll Hx Patient Social History Tobacco Use?: Yes Tobacco type used: Cigarettes Smoking Status: Current Everyday Smoker Use of E-Cig and/or Vaping dev: No Substance use?: No Alcohol Use?: Yes Alcohol type: Beer, Wine Alcohol Frequency: Once in a while Pt feels they are or have been: No Immunizations Up To Date Tetanus Booster (TDap): Less than 5yrs PED Vaccines UTD: Yes Influenza Vaccine Up-to-Date: No; Not Current First/Initial COVID19 Vaccinat: Zenogen Second COVID19 Vaccination Brendon: Zenogen Third COVID19 Vaccination Date: [facility] Paresh Seasonal Allergies Seasonal Allergies: No Past Medical History Surgery/Hospitalization HX: PAD, ANEMIA, L BKA, TYPE OF LEUKEMIA, UTI, PVD RBK AMP 2018 Surgeries: Yes (RIGHT BKA 03/2019;PICC LINE IN R ARM OF 06/30/19;LOOP RECORDER 04/15/20) Amputation, Cardiac, Orthopedic, Tonsillectomy Respiratory: Yes (RESPIRATORY FAILURE WITH SIRS AND PNEUMONIA 04/2019; PNEUMONIA 05/2019) Pneumonia Cardiac: Yes (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;LOOP RECORDER) Atrial Fibrillation, Heart Attack, High Cholesterol, Hypertension, Peripheral Vascular Neurological: No Genitourinary: Yes (HX OF HEMATURIA; HX OF RENAL FAILURE WITH SIRS/PNEUMONIA 04/2019) Benign Prostatic Hyperpl, Bladder Infection Gastrointestinal: Yes (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) Chronic Constipation, Gall Bladder Disease Musculoskeletal: Yes (RIGHT BKA; GENERALIZED WEAKNESS) Amputee Endocrine: No HEENT: Yes Hearing Impairment: Hard of Hearing, Bilateral Hearing Aide Cancer: Yes (MYELODYSPLASTIC DISORDER WITH LEUKOPENIA, ANEMIA AND THROMBOCYTOSIS) Did You Recieve Any Treatments: Yes What Type of Treatment Did You: Chemotherapy Psychosocial: No Integumentary: Yes (LEFT ANKLE /LEFT HEEL WOUND; PYODERMA GANGRENOSUM) Blood Disorders: Yes (refractory anemia /ring sideroblasts W/ thrombocytosis;MYELODYSPLASIA) Adverse Reaction/Blood Tranf: No Family Medical History Hypertension MYELODYSPLASTIC SYNDROME /MYELOPROLIFERATIVE DISORDER WAS DX 2016 IN [place]. HAD BEEN ON HYDROXYUREA, THIS WAS DC'D AND PT HAS BEEN ON ANAGRELIDE SINCE 03/2019. RECEIVES WEEKLY BLOOD TRANSFUSIONS--EVERY MONDAY ADDITIONAL PMH : -NSTEMI 04/23/19. -MULTIPLE EPISODES OF RESPIRATORY FAILURE Physical Exam Vital Signs Capillary Refill : Height, Weight, BMI Height: 6'1.00" Weight: 196lbs. oz. 88.534556xp; 20.05 BMI Method:Stated Progress/Results/Core Measures Results/Orders My Orders Orders - TYRONE RYAN APRN Hydrocodone/Apap 5/325 Tablet (Lortab 5 (01/26/22 22:00) Departure Impression Primary Impression: Foot pain, left Disposition: 01 HOME, SELF-CARE Condition: Stable Departure-Patient Inst. Decision time for Depature: 21:54 Referrals: KEVIN BURCH DO (PCP/Family) Primary Care Physician Patient Instructions: Peripheral Vascular (Arterial) Disease (DC) Add. Discharge Instructions: Plan: 1. Follow up with Dr. Sawyer or Dr. Gomez for referral to medical administrative specialist. 2. May take Ilana-tab by mouth every 6 hours as needed for severe pain. 3. Return for any new, concerning, or worsening symptoms. All discharge instructions reviewed with patient and/or family. Voiced understanding. TYRONE RYAN SLING OPERATOR Jan 26, 2022 21:56
[2022-01-26] MEDS ORDERED: HYDROcodone/APAP 5 MG/325 MG (LORTAB) TAB PO ONE (22:00)
== END 2022-01-26 22:05 | disposition home or self-care (01) ==
LOC: EDUNIT# 21:04 → ER 21:05
DX: M79.672 Pain in left foot (principal); F17.210 Nicotine dependence, cigarettes, uncomplicated; Z28.311 Partially vaccinated for COVID-19
CPT/HCPCS: 99283

== ENCOUNTER 2022-01-31 08:54 | Outpatient (RCR) | payer MEDICARE ==
[2021-10-20 16:15] VITALS: BP 147/62
[2022-01-03 10:52] LABS: BASOPHILS # (AUTO) 0.1 10^3/uL (0.0-0.1); BASOPHILS % (AUTO) 2 % (0-10); EOSINOPHILS # (AUTO) 0.3 10^3/uL (0.0-0.3); EOSINOPHILS % (AUTO) 7 % (0-10); HEMATOCRIT 22 % (40-54); HEMOGLOBIN 7.1 g/dL (13.3-17.7); LYMPHOCYTES # (AUTO) 0.9 10^3/uL (1.0-4.0); LYMPHOCYTES % (AUTO) 22 % (12-44); MEAN CORPUSCULAR HEMOGLOBIN 29 pg (25-34); MEAN CORPUSCULAR HGB CONC 33 g/dL (32-36); MEAN CORPUSCULAR VOLUME 88 fL (80-99); MEAN PLATELET VOLUME 10.2 fL (9.0-12.2); MONOCYTES # (AUTO) 0.8 10^3/uL (0.0-1.0); MONOCYTES % (AUTO) 21 % (0-12); NEUTROPHILS % (AUTO) 48 % (42-75); PLATELET COUNT 484 10^3/uL (130-400); WHITE BLOOD COUNT 4.1 10^3/uL (4.3-11.0)
[2022-01-03 11:22] LABS: ALBUMIN 3.2 GM/DL (3.2-4.5); BILIRUBIN,TOTAL 0.4 MG/DL (0.1-1.0); CALCIUM 7.8 MG/DL (8.5-10.1); CREATININE SERUM 0.86 MG/DL (0.60-1.30); POTASSIUM 3.3 MMOL/L (3.6-5.0); TOTAL PROTEIN 6.6 GM/DL (6.4-8.2)
[2022-01-10 09:31] LABS: BASOPHILS # (AUTO) 0.1 10^3/uL (0.0-0.1); BASOPHILS % (AUTO) 3 % (0-10); EOSINOPHILS # (AUTO) 0.2 10^3/uL (0.0-0.3); EOSINOPHILS % (AUTO) 5 % (0-10); LYMPHOCYTES # (AUTO) 1.1 10^3/uL (1.0-4.0); LYMPHOCYTES % (AUTO) 27 % (12-44); MEAN CORPUSCULAR HEMOGLOBIN 29 pg (25-34); MEAN CORPUSCULAR HGB CONC 33 g/dL (32-36); MEAN CORPUSCULAR VOLUME 87 fL (80-99); MEAN PLATELET VOLUME 10.4 fL (9.0-12.2); MONOCYTES # (AUTO) 0.4 10^3/uL (0.0-1.0); MONOCYTES % (AUTO) 10 % (0-12); NEUTROPHILS # (AUTO) 2.1 10^3/uL (1.8-7.8); NEUTROPHILS % (AUTO) 53 % (42-75); PLATELET COUNT 637 10^3/uL (130-400); WHITE BLOOD COUNT 3.9 10^3/uL (4.3-11.0)
[2022-01-10 09:42] LABS: HEMATOCRIT 20 % (40-54); HEMOGLOBIN 6.6 g/dL (13.3-17.7)
[2022-01-17 09:41] LABS: BASOPHILS # (AUTO) 0.1 10^3/uL (0.0-0.1); BASOPHILS % (AUTO) 2 % (0-10); EOSINOPHILS # (AUTO) 0.2 10^3/uL (0.0-0.3); EOSINOPHILS % (AUTO) 6 % (0-10); LYMPHOCYTES # (AUTO) 0.7 10^3/uL (1.0-4.0); LYMPHOCYTES % (AUTO) 25 % (12-44); MEAN CORPUSCULAR HEMOGLOBIN 29 pg (25-34); MEAN CORPUSCULAR HGB CONC 32 g/dL (32-36); MEAN CORPUSCULAR VOLUME 90 fL (80-99); MEAN PLATELET VOLUME 10.6 fL (9.0-12.2); MONOCYTES # (AUTO) 0.4 10^3/uL (0.0-1.0); MONOCYTES % (AUTO) 12 % (0-12); NEUTROPHILS # (AUTO) 1.6 10^3/uL (1.8-7.8); NEUTROPHILS % (AUTO) 53 % (42-75); PLATELET COUNT 360 10^3/uL (130-400)
[2022-01-17 09:43] LABS: HEMATOCRIT 20 % (40-54); HEMOGLOBIN 6.3 g/dL (13.3-17.7)
[2022-01-17 10:02] LABS: ALBUMIN 3.3 GM/DL (3.2-4.5); BILIRUBIN,TOTAL 0.4 MG/DL (0.1-1.0); CALCIUM 7.7 MG/DL (8.5-10.1); CREATININE SERUM 1.1 MG/DL (0.60-1.30); POTASSIUM 4.1 MMOL/L (3.6-5.0); TOTAL PROTEIN 6.7 GM/DL (6.4-8.2)
[2022-01-24 10:39] LABS: BASOPHILS # (AUTO) 0.1 10^3/uL (0.0-0.1); BASOPHILS % (AUTO) 2 % (0-10); EOSINOPHILS # (AUTO) 0.2 10^3/uL (0.0-0.3); EOSINOPHILS % (AUTO) 3 % (0-10); HEMATOCRIT 21 % (40-54); LYMPHOCYTES # (AUTO) 0.7 10^3/uL (1.0-4.0); LYMPHOCYTES % (AUTO) 14 % (12-44); MEAN CORPUSCULAR HEMOGLOBIN 29 pg (25-34); MEAN CORPUSCULAR HGB CONC 32 g/dL (32-36); MEAN CORPUSCULAR VOLUME 90 fL (80-99); MEAN PLATELET VOLUME 10.6 fL (9.0-12.2); MONOCYTES # (AUTO) 0.4 10^3/uL (0.0-1.0); MONOCYTES % (AUTO) 8 % (0-12); NEUTROPHILS # (AUTO) 3.5 10^3/uL (1.8-7.8); NEUTROPHILS % (AUTO) 72 % (42-75); PLATELET COUNT 450 10^3/uL (130-400); WHITE BLOOD COUNT 4.9 10^3/uL (4.3-11.0)
[2022-01-24 10:42] LABS: HEMOGLOBIN 6.7 g/dL (13.3-17.7)
[2022-01-24 11:08] LABS: ALBUMIN 3.5 GM/DL (3.2-4.5); BILIRUBIN,TOTAL 0.4 MG/DL (0.1-1.0); CALCIUM 7.9 MG/DL (8.5-10.1); CREATININE SERUM 1.09 MG/DL (0.60-1.30); POTASSIUM 3.6 MMOL/L (3.6-5.0); TOTAL PROTEIN 6.8 GM/DL (6.4-8.2)
[~2022-01-31 08:54] MED LIST changes: +NS IV 500 ML 500 ML IV SCH; +NS IV 500 ML 500 ML ONE
[2022-01-31 09:43] LABS: BASOPHILS # (AUTO) 0.2 10^3/uL (0.0-0.1); BASOPHILS % (AUTO) 3 % (0-10); EOSINOPHILS # (AUTO) 0.3 10^3/uL (0.0-0.3); EOSINOPHILS % (AUTO) 7 % (0-10); HEMATOCRIT 22 % (40-54); HEMOGLOBIN 7.3 g/dL (13.3-17.7); LYMPHOCYTES # (AUTO) 0.5 10^3/uL (1.0-4.0); LYMPHOCYTES % (AUTO) 10 % (12-44); MEAN CORPUSCULAR HEMOGLOBIN 29 pg (25-34); MEAN CORPUSCULAR HGB CONC 33 g/dL (32-36); MEAN CORPUSCULAR VOLUME 89 fL (80-99); MEAN PLATELET VOLUME 10.7 fL (9.0-12.2); MONOCYTES # (AUTO) 0.6 10^3/uL (0.0-1.0); MONOCYTES % (AUTO) 12 % (0-12); NEUTROPHILS # (AUTO) 3.5 10^3/uL (1.8-7.8); NEUTROPHILS % (AUTO) 68 % (42-75); PLATELET COUNT 528 10^3/uL (130-400); WHITE BLOOD COUNT 5.1 10^3/uL (4.3-11.0)
[2022-01-31 10:02] LABS: ALBUMIN 3.6 GM/DL (3.2-4.5); BILIRUBIN,TOTAL 0.5 MG/DL (0.1-1.0); CALCIUM 7.5 MG/DL (8.5-10.1); CREATININE SERUM 1.1 MG/DL (0.60-1.30); POTASSIUM 3.8 MMOL/L (3.6-5.0); TOTAL PROTEIN 7.1 GM/DL (6.4-8.2)
== END 2022-02-02 | disposition home or self-care (01) ==
LOC: ONC 08:54
PROVIDERS: ATTEND Internal Medicine Hematology & Oncology
DX: D46.9 Myelodysplastic syndrome, unspecified (principal); D69.6 Thrombocytopenia, unspecified
CPT/HCPCS: 36415; 36430; 80053; 82728; 83540; 83550; 85025; 86850; 86900; 86901; 86920; 99213

== ENCOUNTER 2022-01-31 12:31 | Emergency (ER) | payer MEDICARE ==
[~2022-01-31] VITALS: Ht 187 cm; Wt 70.0 kg
[~2022-01-31 12:31] MED LIST changes: -NS IV 500 ML 500 ML IV SCH; -NS IV 500 ML 500 ML ONE
[2022-01-31 12:40] VITALS: BP 98/51
--- NOTE | 2022-01-31 12:56 | ED Lower Extremity ---
General Chief Complaint: Lower Extremity Stated Complaint: L FOOT PAIN Nursing Triage Note: ARRIVED VIA WC TO ROOM FT1 WITH COMPLAINTS OF LEFT FOOT PAIN THAT STARTED THIS AM. THINKS HE HAS A BLOOD CLOT. STATES HE HAD BLOOD DRAWN [facility] THIS AM AND VOMITED ON THE WAY HOME. SEES DR IYER FOR THE ULCERS ON HIS FOOT. Source: patient, family Exam Limitations: no limitations History of Present Illness Date Seen by Provider: Jan 31, 2022 Time Seen by Provider: 12:45 Initial Comments 76-year-old male presents emergency department today for left foot pain. He has a history of right below the knee, mid tibial amputation secondary to peripheral vascular disease. Has had left foot pain from his midfoot distal for the last couple of days. No known injury. He believes it is related to either vascular problems or complaints that he believes are living under his skin. He is quite gruff and frustrated with previous providers that have not believed his story about complaints. He points to areas of bruising just beneath the extensor surfaces of his toes on his left foot and states they are "living under the skin there that need to be removed. He is visibly frustrated that people have not done this for him. His provides some history and says that they have an appoint with vascular surgery next week at [facility] in [place]. His pain is dull throbbing, but again starting in the midfoot and radiating distally to his toes. It is worse with ambulation. No wounds or drainage. No fevers or chills. He is not diabetic. Allergies and Home Medications Allergies Coded Allergies: Sulfa (Sulfonamide Antibiotics) (Verified Allergy, Intermediate, 08/31/20) Tetanus Vaccines and Toxoid (Verified Allergy, Unknown, 11/17/18) Patient Home Medication List Home Medication List Reviewed: Yes Acetaminophen (Tylenol Extra Strength) 500 Mg Tablet, 500 MG PO Q8H PRN for PAIN-MILD (1-4), (Reported) Entered as Reported by: BRUCE MENCHACA on 12/27/21 1333 Cephalexin (Cephalexin) 500 Mg Capsule, 500 MG PO TID, (Reported) Entered as Reported by: BRUCE MENCHACA on 12/27/21 1336 Cholestyramine (with Sugar) (Cholestyramine Packet) 4 Gram Powd.pack, 4 GM PO DAILY, (Reported) Entered as Reported by: BRUCE MENHCACA on 12/27/21 1337 Finasteride (Finasteride) 5 Mg Tablet, 5 MG PO DAILY, (Reported) Entered as Reported by: JOCELYN REVELES on 03/15/19 1229 Lenalidomide (Revlimid) 2.5 Mg Capsule, 2.5 MG PO HS, (Reported) Entered as Reported by: BRUCE MENCHACA on 12/27/21 1335 Tamsulosin HCl (Flomax) 0.4 Mg Cap, 0.8 MG PO DAILY, (Reported) Entered as Reported by: JOCELYN REVELES on 03/15/19 1229 [Dronabinol] 2.5 MG CAP, 2.5 MG PO DAILY@ Prescribed by: KEVIN BURCH on 12/29/21 1651 Review of Systems Constitutional: no symptoms reported EENTM: no symptoms reported Respiratory: no symptoms reported Cardiovascular: no symptoms reported Gastrointestinal: no symptoms reported Genitourinary: no symptoms reported Musculoskeletal: other (Left foot pain) Skin: other Past Ivoizcl-Fhhuvm-Rgmqkb Hx Patient Social History Tobacco Use?: Yes Smokeless Tobacco Frequency: Current Everyday User Substance use?: No Alcohol Use?: Yes Alcohol Frequency: Once in a while Immunizations Up To Date Tetanus Booster (TDap): Less than 5yrs PED Vaccines UTD: Yes First/Initial COVID19 Vaccinat: UNKNOWN DATE Second COVID19 Vaccination Brendon: [employer] Third COVID19 Vaccination Date: [employer] COVID19 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: [employer] Seasonal Allergies Seasonal Allergies: No Past Medical History Surgery/Hospitalization HX: PAD, ANEMIA, L BKA, TYPE OF LEUKEMIA, UTI, PVD RBK AMP 2018 Surgeries: Yes (RIGHT BKA 03/2019;PICC LINE IN R ARM OF 06/30/19;LOOP RECORDER 04/15/20) Amputation, Cardiac, Orthopedic, Tonsillectomy Respiratory: Yes (RESPIRATORY FAILURE WITH SIRS AND PNEUMONIA 04/2019; PNEUMONIA 05/2019) Pneumonia Cardiac: Yes (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;LOOP RECORDER) Atrial Fibrillation, Heart Attack, High Cholesterol, Hypertension, Peripheral Vascular Neurological: No Genitourinary: Yes (HX OF HEMATURIA; HX OF RENAL FAILURE WITH SIRS/PNEUMONIA 04/2019) Benign Prostatic Hyperpl, Bladder Infection Gastrointestinal: Yes (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) Chronic Constipation, Gall Bladder Disease Musculoskeletal: Yes (RIGHT BKA; GENERALIZED WEAKNESS) Amputee Endocrine: No HEENT: Yes Hearing Impairment: Hard of Hearing, Bilateral Hearing Aide Cancer: Yes (MYELODYSPLASTIC DISORDER WITH LEUKOPENIA, ANEMIA AND THROMBOCYTOSIS) Did You Recieve Any Treatments: Yes What Type of Treatment Did You: Chemotherapy Psychosocial: No Integumentary: Yes (LEFT ANKLE /LEFT HEEL WOUND; PYODERMA GANGRENOSUM) Blood Disorders: Yes (refractory anemia /ring sideroblasts W/ thrombocytosis;MYELODYSPLASIA) Adverse Reaction/Blood Tranf: No Family Medical History Reviewed Nursing Family Hx No Pertinent Family Hx, Hypertension MYELODYSPLASTIC SYNDROME /MYELOPROLIFERATIVE DISORDER WAS DX 2016 IN [place]. HAD BEEN ON HYDROXYUREA, THIS WAS DC'D AND PT HAS BEEN ON ANAGRELIDE SINCE 03/2019. RECEIVES WEEKLY BLOOD TRANSFUSIONS--EVERY MONDAY ADDITIONAL PMH : -NSTEMI 04/23/19. -MULTIPLE EPISODES OF RESPIRATORY FAILURE Physical Exam Vital Signs Vital Signs - First Documented 01/31/22 12:40 Temp 36.3 Pulse 50 Resp 16 B/P (MAP) 98/51 (67) Pulse Ox 100 O2 Delivery Room Air Capillary Refill : Less Than 3 Seconds Height, Weight, BMI Height: 6'1.00" Weight: 196lbs. oz. 88.299681yx; 20.00 BMI Method:Stated General Appearance: WD/WN, no apparent distress HEENT: normal ENT inspection, TMs normal Neck: non-tender, supple Cardiovascular: regular rate, rhythm, no edema, no gallop, no JVD, no murmur Respiratory: chest non-tender, lungs clear, normal breath sounds, no respiratory distress, no accessory muscle use Hips: bilateral hip non-tender, bilateral hip normal inspection, bilateral hip normal range of motion, bilateral hip no evidence of injury, bilateral hip bone tenderness, bilateral hip deformity, bilateral hip ecchymosis, bilateral hip limited range of motion, bilateral hip nodules, bilateral hip pain, bilateral hip soft tissue tenderness, bilateral hip swelling, bilateral hip other Legs: bilateral leg non-tender, bilateral leg normal inspection, bilateral leg normal range of motion, bilateral leg no evidence of injury, bilateral leg abrasions, bilateral leg bone tenderness, bilateral leg deformity, bilateral leg ecchymosis, bilateral leg joint effusion, bilateral leg limited range of motion, bilateral leg nodules, bilateral leg pain, bilateral leg soft tissue tenderness, bilateral leg swelling, bilateral leg other Knees: bilateral knee non-tender, bilateral knee normal inspection, bilateral knee normal range of motion, bilateral knee no evidence of injury, bilateral knee bone tenderness, bilateral knee deformity, bilateral knee ecchymosis, bilateral knee joint effusion, bilateral knee nodules, bilateral knee nodules, bilateral knee pain, bilateral knee soft tissue tenderness, bilateral knee swelling, bilateral knee other Ankles: left ankle non-tender, left ankle normal inspection, left ankle normal range of motion, left ankle no evidence of injury, left ankle abrasion s/lacerations, left ankle bone tenderness, left ankle deformity, left ankle ecchymosis, left ankle joint effusion, left ankle limited range of motion, left ankle nodules, left ankle pain, left ankle soft tissue tenderness, left ankle swelling, left ankle other Feet: left foot other (Chronic venous stasis and peripheral vascular changes associated left foot. Chronic bruising to the base of several toes and extensor surface of the left foot.) Neurologic/Tendon: normal sensation, normal motor functions, normal tendon functions Skin: other (Chronic venous stasis and peripheral vascular changes associated left foot. Chronic bruising to the base of several toes and extensor surface of the left foot.) Progress/Results/Core Measures Results/Orders Vital Signs/I&O 01/31/22 12:40 Temp 36.3 Pulse 50 Resp 16 B/P (MAP) 98/51 (67) Pulse Ox 100 O2 Delivery Room Air Blood Pressure Mean: 67 Departure Communication (Admissions) Patient is hemodynamically stable. He has gained posterior tibial pulses, decreased but present DP pulse on the left side. He has chronic type changes of venous stasis and peripheral arterial disease on that foot however no acute findings. Neurovascular motor and sensory intact. Discharged in stable condition with close follow-up. He does have vascular surgery follow-up next week with [facility] in [place] Impression Primary Impression: Foot pain, left Additional Impression: Peripheral vascular disease Disposition: 01 HOME, SELF-CARE Condition: Stable Departure-Patient Inst. Referrals: KEVIN BURCH DO (PCP/Family) Primary Care Physician Patient Instructions: Peripheral Vascular Ultrasound Add. Discharge Instructions: Please keep your appointment with vascular surgery as recommended and previously schedule. You may call your primary doctor's office to see if they might get your arterial ultrasound any sooner. Return to the emergency department for any severe concerns. Continue your home pain medications as previously prescribed. All discharge instructions reviewed with patient and/or family. Voiced understanding. SARWAT LUNA DO Jan 31, 2022 12:56
== END 2022-01-31 13:15 | disposition home or self-care (01) ==
LOC: EDUNIT# 12:31 → ER 12:32
DX: M79.672 Pain in left foot (principal); I73.9 Peripheral vascular disease, unspecified; F17.200 Nicotine dependence, unspecified, uncomplicated; Z89.511 Acquired absence of right leg below knee
CPT/HCPCS: 99281

== ENCOUNTER → 2022-02-03 | Outpatient (CLI) | payer MEDICARE ==
[~2022-02-03] VITALS: Wt 70.0 kg
[~2022-02-03] MED LIST changes: +NS IV 500 ML 500 ML IV SCH
[2022-02-03 10:50] VITALS: BP 153/57
[2022-02-03 11:18] VITALS: BP 153/57
[2022-02-03 11:28] VITALS: BP 137/42
[2022-02-03 13:04] VITALS: BP 144/51
[2022-02-03 13:21] VITALS: BP 155/60
== END ==
LOC: SDC 10:23
PROVIDERS: ATTEND Internal Medicine Hematology & Oncology
DX: D64.9 Anemia, unspecified (principal)
CPT/HCPCS: 36430; 86850; 86900; 86901; 86920

== ENCOUNTER 2022-02-22 09:42 | Emergency (ER) | payer MEDICARE ==
[2022-02-22] VITALS (7 sets, daily range): BP systolic 101–129; BP diastolic 44–52
[~2022-02-22 09:42] MED LIST changes: -NS IV 500 ML 500 ML IV SCH
[2022-02-22] MEDS ORDERED: NS IV 500 ML 500 ML IV ONE ×2 (10:15→11:00)
[2022-02-22 10:47] LABS: ALBUMIN 3.8 GM/DL (3.2-4.5); POTASSIUM 3.7 MMOL/L (3.6-5.0)
[2022-02-22 10:50] LABS: TOTAL PROTEIN 6.6 GM/DL (6.4-8.2)
[2022-02-22 10:52] LABS: BILIRUBIN,TOTAL 0.5 MG/DL (0.1-1.0)
[2022-02-22 10:53] LABS: CREATININE SERUM 1.27 MG/DL (0.60-1.30)
[2022-02-22 10:56] LABS: MAGNESIUM 1.6 MG/DL (1.6-2.4)
[2022-02-22] MEDS ORDERED: NS IV 1000 ML 1,000 ML IV ONE (11:00)
--- NOTE | 2022-02-22 11:16 | ED General ---
General Chief Complaint: General Problems/Pain Stated Complaint: WEAKNESS Source of Information: Patient, Old Records History of Present Illness Date Seen by Provider: Feb 22, 2022 Time Seen by Provider: 11:03 Initial Comments This is a 76-year-old male who presented to the ER from the [facility] for concerns of low hemoglobin at 5.9. 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 Allergies and Home Medications Allergies Coded Allergies: Sulfa (Sulfonamide Antibiotics) (Verified Allergy, Intermediate, 08/31/20) Tetanus Vaccines and Toxoid (Verified Allergy, Unknown, 11/17/18) Patient Home Medication List Home Medication List Reviewed: Yes Acetaminophen (Tylenol Extra Strength) 500 Mg Tablet, 500 MG PO Q8H PRN for PAIN-MILD (1-4), (Reported) Entered as Reported by: BRUCE MENCHACA on 12/27/21 1333 Cephalexin (Cephalexin) 500 Mg Capsule, 500 MG PO TID, (Reported) Entered as Reported by: BRUCE MENCHACA on 12/27/21 1336 Cholestyramine (with Sugar) (Cholestyramine Packet) 4 Gram Powd.pack, 4 GM PO DAILY, (Reported) Entered as Reported by: BRUCE MENCHACA on 12/27/21 1337 Finasteride (Finasteride) 5 Mg Tablet, 5 MG PO DAILY, (Reported) Entered as Reported by: JOCELYN REVELES on 03/15/19 1229 Lenalidomide (Revlimid) 2.5 Mg Capsule, 2.5 MG PO HS, (Reported) Entered as Reported by: BRUCE MENCHACA on 12/27/21 1335 Tamsulosin HCl (Flomax) 0.4 Mg Cap, 0.8 MG PO DAILY, (Reported) Entered as Reported by: JOCELYN REVELES on 03/15/19 1229 [Dronabinol] 2.5 MG CAP, 2.5 MG PO DAILY@ Prescribed by: KEVIN GALLEGOS on 12/29/21 1651 Review of Systems Review of Systems Constitutional: no symptoms reported EENTM: no symptoms reported Respiratory: no symptoms reported Cardiovascular: no symptoms reported Gastrointestinal: no symptoms reported Genitourinary: no symptoms reported Musculoskeletal: no symptoms reported Skin: no symptoms reported Psychiatric/Neurological: Weakness Hematologic/Lymphatic: No Symptoms Reported Immunological/Allergic: no symptoms reported Past Wwqxkxb-Oijwot-Thbfvh Hx Patient Social History Tobacco Use?: Yes Tobacco type used: Cigarettes Smoking Status: Former Smoker Substance use?: No Alcohol Use?: No Immunizations Up To Date Tetanus Booster (TDap): Less than 5yrs PED Vaccines UTD: Yes First/Initial COVID19 Vaccinat: UNKNOWN DATE Second COVID19 Vaccination Brendon: UNKNOWN DATE Third COVID19 Vaccination Date: UNKNOWN DATE Seasonal Allergies Seasonal Allergies: No Past Medical History Surgery/Hospitalization HX: PAD, ANEMIA, TYPE OF LEUKEMIA, UTI, PVD, RBK AMP 2018 Surgeries: Yes (RIGHT BKA 03/2019;PICC LINE IN R ARM OF 06/30/19;LOOP RECORDER 04/15/20) Amputation, Cardiac, Orthopedic, Tonsillectomy Respiratory: Yes (RESPIRATORY FAILURE WITH SIRS AND PNEUMONIA 04/2019; PNEUMONIA 05/2019) Pneumonia Cardiac: Yes (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;LOOP RECORDER) Atrial Fibrillation, Heart Attack, High Cholesterol, Hypertension, Peripheral Vascular Neurological: No Genitourinary: Yes (HX OF HEMATURIA; HX OF RENAL FAILURE WITH SIRS/PNEUMONIA 04/2019) Benign Prostatic Hyperpl, Bladder Infection Gastrointestinal: Yes (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) Chronic Constipation, Gall Bladder Disease Musculoskeletal: Yes (RIGHT BKA; GENERALIZED WEAKNESS) Amputee Endocrine: No HEENT: Yes Hearing Impairment: Hard of Hearing, Bilateral Hearing Aide Cancer: Yes (MYELODYSPLASTIC DISORDER WITH LEUKOPENIA, ANEMIA AND THROMBOCYTOSIS) Did You Recieve Any Treatments: Yes What Type of Treatment Did You: Chemotherapy Psychosocial: No Integumentary: Yes (LEFT ANKLE /LEFT HEEL WOUND; PYODERMA GANGRENOSUM) Blood Disorders: Yes (refractory anemia /ring sideroblasts W/ thrombocytosis;MYELODYSPLASIA) Adverse Reaction/Blood Tranf: No Family Medical History No Pertinent Family Hx, Hypertension MYELODYSPLASTIC SYNDROME /MYELOPROLIFERATIVE DISORDER WAS DX 2016 IN [place]. HAD BEEN ON HYDROXYUREA, THIS WAS DC'D AND PT HAS BEEN ON ANAGRELIDE SINCE 03/2019. RECEIVES WEEKLY BLOOD TRANSFUSIONS--EVERY MONDAY ADDITIONAL PMH : -NSTEMI 04/23/19. -MULTIPLE EPISODES OF RESPIRATORY FAILURE Physical Exam Vital Signs Vital Signs - First Documented 02/22/22 10:00 Temp 36.0 Pulse 49 Resp 16 B/P (MAP) 86/39 (55) Pulse Ox 100 O2 Delivery Room Air Capillary Refill : Height, Weight, BMI Height: 6'1.00" Weight: 196lbs. oz. 88.387844ui; 20.00 BMI Method:Stated General Appearance: No Apparent Distress, WD/WN Eyes: Bilateral Eye Normal Inspection, Bilateral Eye PERRL, Bilateral Eye EOMI HEENT: PERRL/EOMI, Normal ENT Inspection, Pharynx Normal, Moist Mucous Membranes Neck: Full Range of Motion, Normal Inspection, Supple Respiratory: Chest Non Tender, Lungs Clear, Normal Breath Sounds Cardiovascular: Regular Rate, Rhythm, No Edema, Normal Peripheral Pulses Gastrointestinal: Normal Bowel Sounds, Non Tender, Soft Back: Normal Inspection Extremity: Normal Capillary Refill, Normal Inspection Neurologic/Psychiatric: Alert, Oriented x3, No Motor/Sensory Deficits, Normal 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, 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 Norm as Tested Skin: Normal Color, Warm/Dry Progress/Results/Core Measures Suspected Sepsis SIRS Temperature: Pulse: 45 Respiratory Rate: 14 Blood Pressure 116 /46 Mean: 69 Laboratory Tests 02/22/22 10:13: Creatinine 1.27, Total Bilirubin 0.5 Results/Orders Lab Results Laboratory Tests Test 02/22/22 10:13 Range/Units Sodium Level 140 135-145 MMOL/L Potassium Level 3.7 3.6-5.0 MMOL/L Chloride Level 103 98-107 MMOL/L Carbon Dioxide Level 25 21-32 MMOL/L Anion Gap 12 5-14 MMOL/L Blood Urea Nitrogen 17 7-18 MG/DL Creatinine 1.27 0.60-1.30 MG/DL Estimat Glomerular Filtration Rate 58 BUN/Creatinine Ratio 13 Glucose Level 82 70-105 MG/DL Calcium Level 8.0 L 8.5-10.1 MG/DL Corrected Calcium 8.2 L 8.5-10.1 MG/DL Magnesium Level 1.6 1.6-2.4 MG/DL Total Bilirubin 0.5 0.1-1.0 MG/DL Aspartate Amino Transf (AST/SGOT) 58 H 5-34 U/L Alanine Aminotransferase (ALT/SGPT) 109 H 0-55 U/L Alkaline Phosphatase 74 40-136 U/L Total Protein 6.6 6.4-8.2 GM/DL Albumin 3.8 3.2-4.5 GM/DL Digoxin Level < 0.30 L 0.80-2.00 NG/ML My Orders Orders - TYRONE RYAN APRN Us Left Low Ext Arterial [id number] (02/22/22 12:24) Medications Given in ED Current Medications Medications Dose Ordered Sig/[place] Route Start Time Stop Time Status Last Admin Dose Admin Sodium Chloride 500 ml @ 0 mls/hr Q0M ONCE IV 02/22/22 10:15 02/22/22 10:16 DC 02/22/22 10:16 1,000 MLS/HR Sodium Chloride 500 ml @ 0 mls/hr Q0M ONCE IV 02/22/22 11:00 02/22/22 11:01 DC 02/22/22 11:02 100 MLS/HR Vital Signs/I&O 02/22/22 02/22/22 02/22/22 02/22/22 10:00 11:02 11:02 11:17 Temp 36.0 34.9 34.9 36.9 Pulse 49 45 45 65 Resp 16 14 14 16 B/P (MAP) 86/39 (55) 116/46 116/46 (69) 101/47 Pulse Ox 100 99 99 100 O2 Delivery Room Air Room Air Room Air 02/22/22 02/22/22 02/22/22 02/22/22 12:21 12:47 13:02 15:27 Temp 36.5 36.4 36.5 36.8 Pulse 48 49 47 47 Resp 16 16 16 16 B/P (MAP) 120/44 111/44 129/50 117/52 Pulse Ox 99 100 98 O2 Delivery Room Air Room Air Room Air Room Air 02/22/22 15:30 Temp 36.8 Pulse 47 Resp 16 B/P (MAP) 117/52 Pulse Ox 98 O2 Delivery Room Air Capillary Refill : Blood Pressure Mean: 69 Diagnostic Imaging Diagonstic Imaging: Ultrasound Comments [facility], [place], [place] NAME: FARZAD HANNA MED REC#: [id number] PT STATUS: REG ER : 1945 PHYSICIAN: TYRONE RYAN APRN ADMIT DATE: 02/22/22/ER Signed Date of Exam:02/22/22 US LEFT LOW EXT ARTERIAL [id number] TECHNIQUE: Live grayscale and color Doppler ultrasound was performed of the left lower extremity arterial system. REASON FOR EXAM: Decreased pulse in the left lower extremity. Peripheral arterial disease. Weakness. COMPARISON: None. FINDINGS: Biphasic waveforms are visualized in the left common femoral and profunda femoris arteries. These arteries demonstrate normal peak systolic velocities. Monophasic waveforms are seen in the left superficial femoral artery, popliteal artery, anterior tibial and posterior tibial arteries, and dorsalis pedis arteries. Diminutive waveforms are visualized in the calf vessels of the left lower extremity. Calcified atherosclerotic plaque is seen throughout the left lower extremity arterial system. IMPRESSION: 1. Monophasic waveforms within the superficial femoral artery extending to the calf vessels of the left lower extremity. Diminished waveforms are seen in the calf vessels of the left lower extremity. 2. Moderate burden of atherosclerotic plaque in the left lower extremity arterial system. Dictated by: Dictated on workstation # [id number] Dict: 02/22/22 1354 Trans: 02/22/22 1403 [id number] Interpreted by: LUÍS NAIDU DO Electronically signed by: LUÍS NAIDU DO 02/22/22 1403 Departure Impression Primary Impression: Anemia Disposition: 01 HOME, SELF-CARE Condition: Improved Departure-Patient Inst. Decision time for Depature: 13:50 Referrals: KEVIN GALLEGOS DO (PCP/Family) Primary Care Physician Patient Instructions: Anemia of Inflammation (Anemia of Chronic Disease), Blood Transfusion Add. Discharge Instructions: Plan: 1. Call Dr. Gallegos's office for close follow-up regarding your peripheral artery disease in your left lower extremity. 2. You were given 2 units of red blood cells in the emergency department. 3. Return to the ER if you have any new, concerning, worsening symptoms. All discharge instructions reviewed with patient and/or family. Voiced understanding. TYRONE RYAN MANAGER ACTUARIAL Feb 22, 2022 11:16
--- NOTE | 2022-02-22 14:02 | Diagnostic Imaging Report ---
TECHNIQUE: Live grayscale and color Doppler ultrasound was performed of the left lower extremity arterial system. REASON FOR EXAM: Decreased pulse in the left lower extremity. Peripheral arterial disease. Weakness. COMPARISON: None. FINDINGS: Biphasic waveforms are visualized in the left common femoral and profunda femoris arteries. These arteries demonstrate normal peak systolic velocities. Monophasic waveforms are seen in the left superficial femoral artery, popliteal artery, anterior tibial and posterior tibial arteries, and dorsalis pedis arteries. Diminutive waveforms are visualized in the calf vessels of the left lower extremity. Calcified atherosclerotic plaque is seen throughout the left lower extremity arterial system. IMPRESSION: 1. Monophasic waveforms within the superficial femoral artery extending to the calf vessels of the left lower extremity. Diminished waveforms are seen in the calf vessels of the left lower extremity. 2. Moderate burden of atherosclerotic plaque in the left lower extremity arterial system. Dictated by: Dictated on workstation # [id number]
== END 2022-02-22 15:30 | disposition home or self-care (01) ==
LOC: EDUNIT# 09:42 → ER 09:43
DX: D64.9 Anemia, unspecified (principal); F17.210 Nicotine dependence, cigarettes, uncomplicated; Z28.311 Partially vaccinated for COVID-19
CPT/HCPCS: 36415; 36430; 80053; 80162; 83735; 86850; 86900; 86901; 86920; 93926

== ENCOUNTER 2022-03-03 10:53 | Outpatient (RCR) | payer MEDICARE ==
[2021-10-20 16:15] VITALS: BP 147/62
[2022-02-03 09:54] LABS: BASOPHILS # (AUTO) 0.2 10^3/uL (0.0-0.1); BASOPHILS % (AUTO) 4 % (0-10); EOSINOPHILS # (AUTO) 0.3 10^3/uL (0.0-0.3); EOSINOPHILS % (AUTO) 5 % (0-10); HEMATOCRIT 21 % (40-54); LYMPHOCYTES # (AUTO) 0.6 10^3/uL (1.0-4.0); LYMPHOCYTES % (AUTO) 11 % (12-44); MEAN CORPUSCULAR HEMOGLOBIN 29 pg (25-34); MEAN CORPUSCULAR HGB CONC 32 g/dL (32-36); MEAN CORPUSCULAR VOLUME 90 fL (80-99); MEAN PLATELET VOLUME 10.6 fL (9.0-12.2); MONOCYTES # (AUTO) 0.7 10^3/uL (0.0-1.0); MONOCYTES % (AUTO) 13 % (0-12); NEUTROPHILS # (AUTO) 3.5 10^3/uL (1.8-7.8); NEUTROPHILS % (AUTO) 66 % (42-75); PLATELET COUNT 502 10^3/uL (130-400); WHITE BLOOD COUNT 5.3 10^3/uL (4.3-11.0)
[2022-02-03 10:00] LABS: HEMOGLOBIN 6.7 g/dL (13.3-17.7)
[2022-02-08 10:02] LABS: BASOPHILS # (AUTO) 0.4 10^3/uL (0.0-0.1); BASOPHILS % (AUTO) 5 % (0-10); EOSINOPHILS # (AUTO) 0.7 10^3/uL (0.0-0.3); EOSINOPHILS % (AUTO) 9 % (0-10); HEMATOCRIT 24 % (40-54); HEMOGLOBIN 7.9 g/dL (13.3-17.7); LYMPHOCYTES # (AUTO) 0.9 10^3/uL (1.0-4.0); LYMPHOCYTES % (AUTO) 12 % (12-44); MEAN CORPUSCULAR HEMOGLOBIN 29 pg (25-34); MEAN CORPUSCULAR HGB CONC 33 g/dL (32-36); MEAN CORPUSCULAR VOLUME 88 fL (80-99); MONOCYTES # (AUTO) 0.8 10^3/uL (0.0-1.0); MONOCYTES % (AUTO) 10 % (0-12); NEUTROPHILS # (AUTO) 4.7 10^3/uL (1.8-7.8); NEUTROPHILS % (AUTO) 63 % (42-75); PLATELET COUNT 629 10^3/uL (130-400); WHITE BLOOD COUNT 7.5 10^3/uL (4.3-11.0)
[2022-02-08 10:22] LABS: ALBUMIN 3.7 GM/DL (3.2-4.5); BILIRUBIN,TOTAL 0.6 MG/DL (0.1-1.0); CREATININE SERUM 1.02 MG/DL (0.60-1.30); TOTAL PROTEIN 7.1 GM/DL (6.4-8.2)
[2022-02-14 09:36] LABS: BASOPHILS # (AUTO) 0.2 10^3/uL (0.0-0.1); BASOPHILS % (AUTO) 3 % (0-10); EOSINOPHILS # (AUTO) 0.4 10^3/uL (0.0-0.3); EOSINOPHILS % (AUTO) 6 % (0-10); LYMPHOCYTES # (AUTO) 0.6 10^3/uL (1.0-4.0); LYMPHOCYTES % (AUTO) 9 % (12-44); MEAN CORPUSCULAR HEMOGLOBIN 28 pg (25-34); MEAN CORPUSCULAR HGB CONC 32 g/dL (32-36); MEAN CORPUSCULAR VOLUME 89 fL (80-99); MONOCYTES # (AUTO) 0.7 10^3/uL (0.0-1.0); MONOCYTES % (AUTO) 9 % (0-12); NEUTROPHILS % (AUTO) 72 % (42-75); PLATELET COUNT 537 10^3/uL (130-400)
[2022-02-14 09:39] LABS: HEMATOCRIT 19 % (40-54); HEMOGLOBIN 5.9 g/dL (13.3-17.7)
[2022-02-14 09:55] LABS: ALBUMIN 3.7 GM/DL (3.2-4.5); BILIRUBIN,TOTAL 0.3 MG/DL (0.1-1.0); CREATININE SERUM 1.04 MG/DL (0.60-1.30)
[2022-02-22 09:41] LABS: BASOPHILS # (AUTO) 0.1 10^3/uL (0.0-0.1); BASOPHILS % (AUTO) 2 % (0-10); EOSINOPHILS # (AUTO) 0.5 10^3/uL (0.0-0.3); EOSINOPHILS % (AUTO) 11 % (0-10); LYMPHOCYTES # (AUTO) 0.8 10^3/uL (1.0-4.0); LYMPHOCYTES % (AUTO) 19 % (12-44); MEAN CORPUSCULAR HEMOGLOBIN 28 pg (25-34); MEAN CORPUSCULAR HGB CONC 32 g/dL (32-36); MEAN CORPUSCULAR VOLUME 89 fL (80-99); MEAN PLATELET VOLUME 11.2 fL (9.0-12.2); MONOCYTES # (AUTO) 0.3 10^3/uL (0.0-1.0); MONOCYTES % (AUTO) 8 % (0-12); NEUTROPHILS # (AUTO) 2.4 10^3/uL (1.8-7.8); NEUTROPHILS % (AUTO) 58 % (42-75); PLATELET COUNT 531 10^3/uL (130-400); WHITE BLOOD COUNT 4.1 10^3/uL (4.3-11.0)
[2022-02-22 09:51] LABS: HEMATOCRIT 19 % (40-54); HEMOGLOBIN 5.9 g/dL (13.3-17.7)
[2022-02-28 09:01] LABS: BASOPHILS # (AUTO) 0.2 10^3/uL (0.0-0.1); BASOPHILS % (AUTO) 2 % (0-10); EOSINOPHILS # (AUTO) 0.5 10^3/uL (0.0-0.3); EOSINOPHILS % (AUTO) 7 % (0-10); HEMATOCRIT 23 % (40-54); HEMOGLOBIN 7.5 g/dL (13.3-17.7); LYMPHOCYTES # (AUTO) 0.7 10^3/uL (1.0-4.0); LYMPHOCYTES % (AUTO) 10 % (12-44); MEAN CORPUSCULAR HEMOGLOBIN 29 pg (25-34); MEAN CORPUSCULAR HGB CONC 32 g/dL (32-36); MEAN CORPUSCULAR VOLUME 90 fL (80-99); MEAN PLATELET VOLUME 10.9 fL (9.0-12.2); MONOCYTES # (AUTO) 0.6 10^3/uL (0.0-1.0); MONOCYTES % (AUTO) 9 % (0-12); NEUTROPHILS # (AUTO) 4.7 10^3/uL (1.8-7.8); NEUTROPHILS % (AUTO) 70 % (42-75); PLATELET COUNT 503 10^3/uL (130-400); WHITE BLOOD COUNT 6.7 10^3/uL (4.3-11.0)
[~2022-03-03 10:53] MED LIST changes: +NS IV 500 ML 500 ML IV SCH; +NS IV 500 ML 500 ML ONE
[2022-03-03] MEDS ORDERED: NS IV 500 ML 500 ML IV SCH (11:30)
== END 2022-03-04 08:30 | disposition home or self-care (01) ==
LOC: ONC 10:53
PROVIDERS: ATTEND Internal Medicine Hematology & Oncology
DX: D46.9 Myelodysplastic syndrome, unspecified (principal); D47.3 Essential (hemorrhagic) thrombocythemia; E78.2 Mixed hyperlipidemia; I10 Essential (primary) hypertension
CPT/HCPCS: 36415; 36430; 80053; 85025; 86850; 86900; 86901; 86920; 99213

== ENCOUNTER 2022-03-09 05:35 | Outpatient (CLI) | payer MEDICARE ==
[~2022-03-09] VITALS: Ht 188 cm; Wt 70.0 kg
[~2022-03-09 05:35] MED LIST changes: -NS IV 500 ML 500 ML IV SCH; -NS IV 500 ML 500 ML ONE
[2022-03-14] MEDS ORDERED: CLOP75TA28 PO (09:57)
[2022-03-14] MEDS ORDERED: PRD10T (09:57)
== END 2022-03-14 16:47 | disposition home or self-care (01) ==
LOC: PREOP 05:35
PROVIDERS: ATTEND Surgery
DX: Z01.818 Encounter for other preprocedural examination (principal)

== ENCOUNTER 2022-03-14 08:40 | Emergency (ER) | payer MEDICARE ==
--- NOTE | 2022-03-14 09:05 | ED General ---
General Chief Complaint: General Problems/Pain Stated Complaint: AMS - LOW BP Nursing Triage Note: pt to [facility] 5 from [facility] with cc of low b/p and weakness. pt was coming in to have blood drawn and was sent here because he was answering questions slow and weak. pt states his gave him pain meds before coming to hosp. lt neck pain and lt leg pain Source of Information: Patient, Family (son-in-law) Exam Limitations: No Limitations History of Present Illness Date Seen by Provider: Mar 14, 2022 Time Seen by Provider: 08:55 Initial Comments Patient is a 76-year-old male history of myelodysplastic syndrome/ peripheral arterial disease who presents to the emergency department today with a chief complaint of low blood pressure, lethargy and weakness. Patient states that he typically has blood transfusions once a week but he skipped last week. He was given two pain pills by his (hydrocodone 5mg) prior to coming to the hospital to the cancer center visit. They assessed him and found his blood pressure to be low and sent him to the ER for evaluation. On arrival the patient does appear fatigued, he is answering questions appropriately, is alert and oriented. He is complaining of the toes of his left foot being "cold". He also has some neck pain. When I went to examine his neck and was touching the back of it he stated that that improved his discomfort. Son-in-law was present at the bedside and states that he seems to be a little tired but otherwise is at his normal mental baseline. No complaints of chest pain or shortness of breath. No abdominal pain or na usea. No recent fevers or chills. He has had a little bit of a "stuffy nose" per son. Is COVID vaccinated with 1 [employer] vaccine. No other complaints of recent illness, injury/falls. All other review of systems reviewed and negative except as stated. Timing/Duration: 1-3 Hours Severity: Moderate Associated Systoms: Malaise, Weakness Allergies and Home Medications Allergies Coded Allergies: Sulfa (Sulfonamide Antibiotics) (Verified Allergy, Intermediate, RASH, TROUBLE BREATHING, 03/14/22) Tetanus Vaccines and Toxoid (Verified Allergy, Unknown, ARMS SWELLS , 03/14/22) Patient Home Medication List Home Medication List Reviewed: Yes Acetaminophen (Tylenol Extra Strength) 500 Mg Tablet, 500 MG PO Q8H PRN for PAIN-MILD (1-4), (Reported) Entered as Reported by: BRUCE MENCHACA on 12/27/21 1333 Cholestyramine (with Sugar) (Cholestyramine Packet) 4 Gram Powd.pack, 4 GM PO DAILY, (Reported) Entered as Reported by: BRUCE MENCHACA on 12/27/21 1337 Finasteride (Finasteride) 5 Mg Tablet, 5 MG PO DAILY, (Reported) Entered as Reported by: JOCELYN REVELES on 03/15/19 1229 Lenalidomide (Revlimid) 2.5 Mg Capsule, 5 MG PO HS, (Reported) Entered as Reported by: BRUCE MENCHACA on 12/27/21 1335 Tamsulosin HCl (Flomax) 0.4 Mg Cap, 0.8 MG PO DAILY, (Reported) Entered as Reported by: JOCELYN REVELES on 03/15/19 1229 Discontinued Medications Cephalexin (Cephalexin) 500 Mg Capsule, 500 MG PO TID, (Reported) Discontinued Reason: No Longer Taking Entered as Reported by: BRUCE MENCHACA on 12/27/21 1336 [Dronabinol] 2.5 MG CAP, 2.5 MG PO DAILY@11,16 Discontinued Reason: No Longer Taking Prescribed by: KEVIN BURCH on 12/29/21 1651 Review of Systems Review of Systems Constitutional: see HPI, malaise, weakness EENTM: no symptoms reported Respiratory: no symptoms reported Cardiovascular: no symptoms reported Gastrointestinal: no symptoms reported Genitourinary: no symptoms reported Musculoskeletal: neck pain Skin: no symptoms reported All Other Systems Reviewed Negative Unless Noted: Yes Past Icgxmns-Zgwhcr-Lboqsu Hx Immunizations Up To Date Tetanus Booster (TDap): Less than 5yrs PED Vaccines UTD: Yes First/Initial COVID19 Vaccinat: UNKNOWN DATE Second COVID19 Vaccination Brendon: UNKNOWN DATE Third COVID19 Vaccination Date: UNKNOWN DATE Seasonal Allergies Seasonal Allergies: No Past Medical History Surgery/Hospitalization HX: PAD, ANEMIA, TYPE OF LEUKEMIA, UTI, PVD, RBK AMP 2018 Surgeries: Yes (RIGHT BKA 03/2019;PICC LINE IN R ARM OF 06/30/19;LOOP RECORDER 04/15/20) Amputation, Cardiac, Orthopedic, Tonsillectomy Respiratory: Yes (RESPIRATORY FAILURE WITH SIRS AND PNEUMONIA 04/2019; PNEUMONIA 05/2019) Pneumonia Cardiac: Yes (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;LOOP RECORDER) Atrial Fibrillation, Heart Attack, High Cholesterol, Hypertension, Peripheral Vascular Neurological: No Genitourinary: Yes (HX OF HEMATURIA; HX OF RENAL FAILURE WITH SIRS/PNEUMONIA 04/2019) Benign Prostatic Hyperpl, Bladder Infection Gastrointestinal: Yes (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) Chronic Constipation, Gall Bladder Disease Musculoskeletal: Yes (RIGHT BKA; GENERALIZED WEAKNESS) Amputee Endocrine: No HEENT: Yes Hearing Impairment: Hard of Hearing, Bilateral Hearing Aide Cancer: Yes (MYELODYSPLASTIC DISORDER WITH LEUKOPENIA, ANEMIA AND THROMBOCYTOSIS) Did You Recieve Any Treatments: Yes What Type of Treatment Did You: Chemotherapy Psychosocial: No Integumentary: Yes (LEFT ANKLE /LEFT HEEL WOUND; PYODERMA GANGRENOSUM) Blood Disorders: Yes (refractory anemia /ring sideroblasts W/ thrombocytosis;MYELODYSPLASIA) Adverse Reaction/Blood Tranf: No Family Medical History No Pertinent Family Hx, Hypertension MYELODYSPLASTIC SYNDROME /MYELOPROLIFERATIVE DISORDER WAS DX 2016 IN [place]. HAD BEEN ON HYDROXYUREA, THIS WAS DC'D AND PT HAS BEEN ON ANAGRELIDE SINCE 03/2019. RECEIVES WEEKLY BLOOD TRANSFUSIONS--EVERY MONDAY ADDITIONAL PMH : -NSTEMI 04/23/19. -MULTIPLE EPISODES OF RESPIRATORY FAILURE Physical Exam Vital Signs Vital Signs - First Documented 03/14/22 08:54 Temp 35.3 Pulse 66 Resp 16 B/P (MAP) 83/54 (64) Pulse Ox 97 O2 Delivery Room Air Capillary Refill : Less Than 3 Seconds Height, Weight, BMI Height: 6'1.00" Weight: 196lbs. oz. 88.396323lv; 20.00 BMI Method:Stated General Appearance: No Apparent Distress, Chronically ill, Thin Eyes: Bilateral Eye PERRL, Bilateral Eye EOMI, Bilateral Eye Conjunctivae Pale HEENT: Pale Conjunctivae (L), Pale Conjunctivae (R), Other (pale oral mucosa - looks dry as well) Neck: Normal Inspection, Non Tender, Other ((patient reported me pressing on his neck "felt good")) Respiratory: Lungs Clear, Normal Breath Sounds, No Accessory Muscle Use, No Respiratory Distress Cardiovascular: Regular Rate, Rhythm Gastrointestinal: Normal Bowel Sounds, Soft Extremity: Normal Range of Motion, Other (right LE AKA; Left lower - dusky toes that are cool to the touch, dorsal foot is warm. Will doppler pulses) Neurologic/Psychiatric: Alert, Oriented x3, No Motor/Sensory Deficits, Other (cantakerous affect, grumpy) Skin: Warm/Dry, Pallor Progress/Results/Core Measures Suspected Sepsis SIRS Temperature: Pulse: 66 Respiratory Rate: 16 Laboratory Tests 03/14/22 09:05: White Blood Count 6.4 Blood Pressure 83 /54 Mean: 64 Laboratory Tests 03/14/22 09:05: Creatinine 1.14, Platelet Count 603H Results/Orders Lab Results Laboratory Tests Test 03/14/22 09:05 Range/Units White Blood Count 6.4 4.3-11.0 10^3/uL Red Blood Count 2.50 L 4.30-5.52 10^6/uL Hemoglobin 7.2 L 13.3-17.7 g/dL Hematocrit 22 L 40-54 % Mean Corpuscular Volume 88 80-99 fL Mean Corpuscular Hemoglobin 29 25-34 pg Mean Corpuscular Hemoglobin Concent 33 32-36 g/dL Red Cell Distribution Width 15.3 H 10.0-14.5 % Platelet Count 603 H 130-400 10^3/uL Mean Platelet Volume 10.7 9.0-12.2 fL Immature Granulocyte % (Auto) 1 % Neutrophils (%) (Auto) 58 42-75 % Lymphocytes (%) (Auto) 21 12-44 % Monocytes (%) (Auto) 13 H 0-12 % Eosinophils (%) (Auto) 3 0-10 % Basophils (%) (Auto) 4 0-10 % Neutrophils # (Auto) 3.8 1.8-7.8 10^3/uL Lymphocytes # (Auto) 1.3 1.0-4.0 10^3/uL Monocytes # (Auto) 0.8 0.0-1.0 10^3/uL Eosinophils # (Auto) 0.2 0.0-0.3 10^3/uL Basophils # (Auto) 0.3 H 0.0-0.1 10^3/uL Immature Granulocyte # (Auto) 0.1 0.0-0.1 10^3/uL Sodium Level 139 135-145 MMOL/L Potassium Level 3.9 3.6-5.0 MMOL/L Chloride Level 104 98-107 MMOL/L Carbon Dioxide Level 23 21-32 MMOL/L Anion Gap 12 5-14 MMOL/L Blood Urea Nitrogen 15 7-18 MG/DL Creatinine 1.14 0.60-1.30 MG/DL Estimat Glomerular Filtration Rate 66 BUN/Creatinine Ratio 13 Glucose Level 108 H 70-105 MG/DL Calcium Level 7.5 L 8.5-10.1 MG/DL My Orders Orders - ILDA MOREIRA MD Cbc With Automated Diff (03/14/22 09:05) Basic Metabolic Panel (03/14/22 09:05) Type And Screen (03/14/22 09:05) Manual Differential (03/14/22 09:05) Vital Signs/I&O 03/14/22 08:54 Temp 35.3 Pulse 66 Resp 16 B/P (MAP) 83/54 (64) Pulse Ox 97 O2 Delivery Room Air Capillary Refill : Less Than 3 Seconds Blood Pressure Mean: 64 Progress Note : Time: 07:47 Progress Note Patient seen and evaluated. On physical examination the patient is alert and oriented to person place and time. He complains of some musculoskeletal neck pain. He complains that his foot is cold. No other complaints of illness or recent injury. His blood pressure is 120 systolic at this point, hemoglobin is 7.2. No clinical indications for transfusion from the emergency department at this time. His basic metabolic panel is also normal. No indications for further testing. Suspect that his hydrocodone was contributing to his lethargy at the visit this morning. Will defer to oncology center for the rest of his visit. At discharge he is complaining of more anterior left lower extremity pain. He is rubbing on his leg. His son-in-law states that he has had this pain for "weeks". He is scheduled to have a CT scan of the leg on . We reviewed his home medications, he is on gabapentin 300 mg once in the morning only. I did inform the son-in-law that there is a lot of room to increase this dosing. We will go ahead and give him another 300 mg this morning and a little dose of fentanyl prior to wheeling him back over to the oncology clinic. Departure Impression Primary Impression: Weakness Additional Impression: Anemia Qualified Codes: D64.9 - Anemia, unspecified Disposition: 01 HOME, SELF-CARE Condition: Stable Departure-Patient Inst. Decision time for Depature: :50 Referrals: KEVIN BURCH DO (PCP/Family) Primary Care Physician Patient Instructions: Generalized Weakness Add. Discharge Instructions: Follow up with the Cancer Center today. Return to the Emergency Department for any new, concerning or emergent complaints. Continue your daily medications as prescribed. Copy Copies To 1: KEVIN BURCH KATHRYN M MD Mar 14, 2022 09:05
[2022-03-14 09:21] LABS: BASOPHILS # (AUTO) 0.3 10^3/uL (0.0-0.1); BASOPHILS % (AUTO) 4 % (0-10); EOSINOPHILS # (AUTO) 0.2 10^3/uL (0.0-0.3); EOSINOPHILS % (AUTO) 3 % (0-10); HEMATOCRIT 22 % (40-54); HEMOGLOBIN 7.2 g/dL (13.3-17.7); LYMPHOCYTES # (AUTO) 1.3 10^3/uL (1.0-4.0); LYMPHOCYTES % (AUTO) 21 % (12-44); MEAN CORPUSCULAR HEMOGLOBIN 29 pg (25-34); MEAN CORPUSCULAR HGB CONC 33 g/dL (32-36); MEAN CORPUSCULAR VOLUME 88 fL (80-99); MEAN PLATELET VOLUME 10.7 fL (9.0-12.2); MONOCYTES # (AUTO) 0.8 10^3/uL (0.0-1.0); MONOCYTES % (AUTO) 13 % (0-12); NEUTROPHILS # (AUTO) 3.8 10^3/uL (1.8-7.8); NEUTROPHILS % (AUTO) 58 % (42-75); PLATELET COUNT 603 10^3/uL (130-400); WHITE BLOOD COUNT 6.4 10^3/uL (4.3-11.0)
[2022-03-14 09:35] LABS: POTASSIUM 3.9 MMOL/L (3.6-5.0)
[2022-03-14 09:37] LABS: CALCIUM 7.5 MG/DL (8.5-10.1)
[2022-03-14 09:41] LABS: CREATININE SERUM 1.14 MG/DL (0.60-1.30)
[2022-03-14] MEDS ORDERED: CLOP75TA28 PO (09:57)
[2022-03-14] MEDS ORDERED: PRD10T (09:57)
[2022-03-14] MEDS ORDERED: fentaNYL INJ 100 MCG/2 ML AMP IVP ONE (10:00)
[2022-03-14] MEDS ORDERED: GABAPENTIN 300 MG (NEURONTIN) CAP PO ONE (10:00)
[2022-03-14 10:15] VITALS: BP 122/80
[2022-03-14 10:24] LABS: ATYPICAL LYMPHOCYTES 2 %; BAND NEUTROPHILS 9 %; BASOPHILS % (MANUAL) 1 %; EOSINOPHILS % (MANUAL) 2 %; LYMPHOCYTES % (MANUAL) 20 %; METAMYELOCYTES % 1 %; MONOCYTES % (MANUAL) 8 %; NEUTROPHILS % (MANUAL) 57 %; RBC MORPH NORMAL
== END 2022-03-14 10:15 | disposition home or self-care (01) ==
LOC: EDUNIT# 08:40 → ER 08:41
DX: D64.9 Anemia, unspecified (principal); M54.2 Cervicalgia; M79.662 Pain in left lower leg
CPT/HCPCS: 36415; 80048; 85007; 85027; 86850; 86900; 86901

== ENCOUNTER 2022-03-16 08:36 | Day surgery (SDC) | payer MEDICARE ==
[~2022-03-16] VITALS: Ht 188 cm; Wt 70.0 kg
[2022-03-16] VITALS (12 sets, daily range): BP systolic 103–135; BP diastolic 40–70
[~2022-03-16 08:36] MED LIST changes: +PRD10T
[2022-03-16] MEDS ORDERED: ceFAZolin INJECTION 2,000 MG in NS (IVPB) 50 ML IV ONE (09:00)
[2022-03-16] MEDS ORDERED: LACTATED RINGERS 1,000 ML IV PRN (09:00)
[2022-03-16 09:24] LABS: BASOPHILS # (AUTO) 0.2 10^3/uL (0.0-0.1); BASOPHILS % (AUTO) 3 % (0-10); EOSINOPHILS # (AUTO) 0.4 10^3/uL (0.0-0.3); EOSINOPHILS % (AUTO) 8 % (0-10); LYMPHOCYTES % (AUTO) 20 % (12-44); MEAN CORPUSCULAR HEMOGLOBIN 29 pg (25-34); MEAN CORPUSCULAR HGB CONC 32 g/dL (32-36); MEAN CORPUSCULAR VOLUME 89 fL (80-99); MEAN PLATELET VOLUME 10.9 fL (9.0-12.2); MONOCYTES # (AUTO) 0.6 10^3/uL (0.0-1.0); MONOCYTES % (AUTO) 12 % (0-12); NEUTROPHILS # (AUTO) 2.8 10^3/uL (1.8-7.8); NEUTROPHILS % (AUTO) 56 % (42-75); PLATELET COUNT 515 10^3/uL (130-400); WHITE BLOOD COUNT 4.9 10^3/uL (4.3-11.0)
[2022-03-16 09:29] LABS: HEMATOCRIT 17 % (40-54); HEMOGLOBIN 5.6 g/dL (13.3-17.7)
--- NOTE | 2022-03-16 09:37 | Progress Note-Pre Operative ---
Pre-Operative Progress Note Date of Available H&P: Mar 08, 2022 Date H&P Reviewed: Mar 16, 2022 Time H&P Reviewed: 09:34 History & Physical: H&P Reviewed, Patient Examed, Changes noted below Changes from last HP Pallor Pre-Operative Diagnosis: Anemia, Venous insufficiency MIGUEL ANGEL CANNON DO Mar 16, 2022 09:37
[2022-03-16] MEDS ORDERED: NS IV 500 ML 500 ML ONE (09:42)
[2022-03-16] MEDS ORDERED: NS IV 500 ML 500 ML IV SCH (09:45)
[2022-03-16] MEDS ORDERED: PROPOFOL INJECTION 50 ML IV ONE (10:57)
[2022-03-16] MEDS ORDERED: 0.9% SODIUM CHLORIDE PF INJ 20 ML VIAL ONE (11:00)
[2022-03-16] MEDS ORDERED: HEParin (CENTRAL IV FLUSH) 500 UNIT/5 ML SYR ONE (11:00)
[2022-03-16] MEDS ORDERED: LIDOCAINE/EPI 2% 1:200,00 (XYLOCAINE) 10 ML VIAL ONE ×2 (11:00→11:02)
[2022-03-16] MEDS ORDERED: CLINDAMYCIN 600 MG/50 ML IVPB 50 ML IV ONE (11:43)
--- NOTE | 2022-03-16 12:01 | Progress Note-Post Operative ---
Post-Operative Progess Note Surgeon (s)/Tube Depatcher (s) Surgeon MIGUEL ANGEL CANNON DO Tube Depatcher: VENTURA Melendez Pre-Operative Diagnosis Anemia, Venous insufficiency Post-Operative Diagnosis same Procedure & Operative Findings Date of Procedure 03/16/22 Procedure Performed/Findings PROCEDURE: Obdulio Cath placement The patient was taken to the operating suite, was prepped and draped in the sterile fashion. A surgical pause was performed. Local anesthetic was infiltrated at the clavicle and along the tract to the right anterior chest, where more local was placed so the pocket could be created. Using an 18 gauge finder needle with negative inspiration the right subclavian vein was accessed on the first attempt and dark nonpulsatile blood was withdrawn. The wire was inserted and fluoroscopy assured proper placement. The needle was removed. The regular wire was inserted and fluoroscopy assured proper placement. The wire was then secured. A #11 blade scalpel was used to make an incision over the right chest and along guidewire. Cautery was used to dissect down to the pectoral fascia. A pocket was created with blunt dissection. The dilator sheath was then advanced over the wire under fluoroscopy and the dilator and wire were removed. The Groshong catheter was inserted through the sheath and the sheath was then removed. The Groshong wire was removed. The catheter was then tunneled to the right chest pocket. Fluoroscopy was used to cut to length and this was then attached to the port which was then placed within the pocket. The port was then accessed without difficulty. It was then flushed with saline and then heparin. The subcutaneous tissues were then reapproximated using 3-0 Vicryl. Finally the skin was closed with 4-0 undyed monocryl, 3 interrupted sutures. The areas were then washed and dried. Skin Affix was placed over incision. The insertion point of the neck Skin Affix was placed over the incision. The patient tolerated the procedure well without complication and was taken to recovery room in stable condition. Anesthesia Type IV sedation by TRIMMER HAND Estimated Blood Loss Estimated blood loss (mL): scant Specimens/Packing Specimens Removed none MIGUEL ANGEL CANNON DO Mar 16, 2022 12:01
--- NOTE | 2022-03-16 12:03 | Discharge Inst-Surgical ---
Discharge Inst-Surgical Depart Medication/Instructions New, Converted or Re-Newed RX: Other (use home meds) Patient Instructions Follow up Appt: Make appointment for 1 week. [phone] Instructions: No lifting greater than 20 pounds. No strenuous activity. May shower in 24 hours, no tub bath or soaking. Use incentive spirometer at home as directed. No Smoking Skin/Wound Care: May remove bandages in am. You need to leave the Dermabond on incision it will fall off on it's own. Symptoms to Report: Appetite Changes, Extremity Discoloration, Numbness/Tingling, Swelling Increased, Bleeding Excessive, Eyesight Changes, Pain Increased, Urine Color Change, Constipation(Persistent), Fever over 101 degree F, Pain/Pressure in chest, Urinating Difficulty, Cough Up/Vomit Blood, Heart Beat Irreg/Pounding, Pain/Pressure in jaw, Cramps in feet or legs, Lightheadedness, Pain/Pressure in shoulder, Diarrhea(Persistent), Memory Changes Suddenly, Questions/Concerns, Weight gain consecutive days, Dizziness/Fainting, Nausea/Vomiting, Shortness of Breath, Weight gain over 2 pounds If questions or concerns contact your physician Or seek help at emergency department. Activity Activity as Tolerated: Yes Activity Instructions: Avoid Stress to Incision Driving Instructions: No Driving for 2 Weeks Diet Discharge Diet: No Restrictions Diet After 24 Hours: Clear Liquid if Nauseous If Any Problems/Questions/Issu: Contact Your Physician, Go to Emergency Room Skin/Wound Care Infection Signs and Symptoms: Increased Redness, Foul Odor of Wound, Increased Drainage, Skin Itchy or Has a Rash, Increased Swelling, Temperature Above 101 F Stitches/Deep/Dermabond Dis: Dermabond Ice Pack: Ice On and Off Site MIGUEL ANGEL CANNON DO Mar 16, 2022 12:03
--- NOTE | 2022-03-16 12:09 | Anesthesia-General Post-Op ---
MAC Patient Condition Mental Status/LOC: Same as Preop Cardiovascular: Satisfactory Nausea/Vomiting: Absent Respiratory: Satisfactory Pain: Controlled Complications: Absent Post Op Complications Complications None Follow Up Care/Instructions Patient Instructions None needed. Anesthesiology Discharge Order Discharge Order Patient is doing well, no complaints, stable vital signs, no apparent adverse anesthesia problems. No complications reported per nursing. KEYA CASANOVA CRNA Mar 16, 2022 12:09
[2022-03-16] MEDS ORDERED: ONDANSETRON 4 MG/2 ML (SDV) Z0FRAN IVP PRN (12:15)
[2022-03-16] MEDS ORDERED: morphine INJ 10 MG/ML 1ML (SYR OR VIAL) IVP ONE (12:15)
[2022-03-16 15:39] LABS: HEMOGLOBIN 7.4 g/dL (13.3-17.7)
--- NOTE | 2022-03-16 17:19 | Diagnostic Imaging Report ---
INDICATION: Central line placement. IMPRESSION: 3 seconds of fluoroscopy and a single AP digital image was used in surgery by Dr. Oneill during Port-A-Cath insertion. Image shows right subclavian Port-A-Cath tip projects over the right atrium. Dictated by: Dictated on workstation # [id number]
[2022-03-22] MEDS ORDERED: CLINDAMYCIN 600 MG/50 ML IVPB 50 ML IV ONE (09:15)
== END 2022-03-16 16:10 | disposition home or self-care (01) ==
LOC: SDC 08:36
PROVIDERS: ATTEND Surgery
DX: D46.9 Myelodysplastic syndrome, unspecified (principal); I87.2 Venous insufficiency (chronic) (peripheral); F17.210 Nicotine dependence, cigarettes, uncomplicated; Z89.511 Acquired absence of right leg below knee
CPT/HCPCS: 36430; 36561; 76000; 85014; 85018; 85025; 86850; 86900; 86901; 86920; 87081; C1788; P9016; 36415

== ENCOUNTER → 2022-04-04 | Outpatient (RCR) | payer MEDICARE ==
[2021-10-20 16:15] VITALS: BP 147/62
[2022-03-07 09:27] LABS: BASOPHILS # (AUTO) 0.3 10^3/uL (0.0-0.1); BASOPHILS % (AUTO) 5 % (0-10); EOSINOPHILS # (AUTO) 0.4 10^3/uL (0.0-0.3); EOSINOPHILS % (AUTO) 9 % (0-10); HEMATOCRIT 24 % (40-54); HEMOGLOBIN 7.7 g/dL (13.3-17.7); LYMPHOCYTES # (AUTO) 0.7 10^3/uL (1.0-4.0); LYMPHOCYTES % (AUTO) 13 % (12-44); MEAN CORPUSCULAR HEMOGLOBIN 29 pg (25-34); MEAN CORPUSCULAR HGB CONC 32 g/dL (32-36); MEAN CORPUSCULAR VOLUME 91 fL (80-99); MEAN PLATELET VOLUME 10.7 fL (9.0-12.2); MONOCYTES # (AUTO) 0.6 10^3/uL (0.0-1.0); MONOCYTES % (AUTO) 12 % (0-12); NEUTROPHILS # (AUTO) 3.1 10^3/uL (1.8-7.8); NEUTROPHILS % (AUTO) 60 % (42-75); PLATELET COUNT 637 10^3/uL (130-400); WHITE BLOOD COUNT 5.1 10^3/uL (4.3-11.0)
[2022-03-07 09:48] LABS: ALBUMIN 3.8 GM/DL (3.2-4.5); BILIRUBIN,TOTAL 0.5 MG/DL (0.1-1.0); CALCIUM 7.7 MG/DL (8.5-10.1); POTASSIUM 3.8 MMOL/L (3.6-5.0); TOTAL PROTEIN 6.7 GM/DL (6.4-8.2)
[2022-03-23 09:27] LABS: BASOPHILS # (AUTO) 0.2 10^3/uL (0.0-0.1); BASOPHILS % (AUTO) 3 % (0-10); EOSINOPHILS # (AUTO) 0.5 10^3/uL (0.0-0.3); EOSINOPHILS % (AUTO) 9 % (0-10); LYMPHOCYTES % (AUTO) 17 % (12-44); MEAN CORPUSCULAR HEMOGLOBIN 29 pg (25-34); MEAN CORPUSCULAR HGB CONC 33 g/dL (32-36); MEAN CORPUSCULAR VOLUME 89 fL (80-99); MEAN PLATELET VOLUME 10.9 fL (9.0-12.2); MONOCYTES # (AUTO) 0.6 10^3/uL (0.0-1.0); MONOCYTES % (AUTO) 10 % (0-12); NEUTROPHILS # (AUTO) 3.6 10^3/uL (1.8-7.8); NEUTROPHILS % (AUTO) 60 % (42-75); PLATELET COUNT 400 10^3/uL (130-400); WHITE BLOOD COUNT 5.9 10^3/uL (4.3-11.0)
[2022-03-23 09:33] LABS: HEMATOCRIT 19 % (40-54); HEMOGLOBIN 6.3 g/dL (13.3-17.7)
[2022-03-23 09:58] LABS: ALBUMIN 3.3 GM/DL (3.2-4.5); BILIRUBIN,TOTAL 0.4 MG/DL (0.1-1.0); CALCIUM 7.5 MG/DL (8.5-10.1); CREATININE SERUM 0.93 MG/DL (0.60-1.30); POTASSIUM 3.1 MMOL/L (3.6-5.0); TOTAL PROTEIN 5.7 GM/DL (6.4-8.2)
[2022-03-28 10:02] LABS: BASOPHILS # (AUTO) 0.2 10^3/uL (0.0-0.1); BASOPHILS % (AUTO) 4 % (0-10); EOSINOPHILS # (AUTO) 0.2 10^3/uL (0.0-0.3); EOSINOPHILS % (AUTO) 5 % (0-10); HEMATOCRIT 21 % (40-54); LYMPHOCYTES # (AUTO) 0.8 10^3/uL (1.0-4.0); LYMPHOCYTES % (AUTO) 19 % (12-44); MEAN CORPUSCULAR HEMOGLOBIN 29 pg (25-34); MEAN CORPUSCULAR HGB CONC 32 g/dL (32-36); MEAN CORPUSCULAR VOLUME 89 fL (80-99); MEAN PLATELET VOLUME 10.9 fL (9.0-12.2); MONOCYTES # (AUTO) 0.4 10^3/uL (0.0-1.0); MONOCYTES % (AUTO) 10 % (0-12); NEUTROPHILS # (AUTO) 2.4 10^3/uL (1.8-7.8); NEUTROPHILS % (AUTO) 61 % (42-75); PLATELET COUNT 343 10^3/uL (130-400); WHITE BLOOD COUNT 3.9 10^3/uL (4.3-11.0)
[2022-03-28 10:03] LABS: HEMOGLOBIN 6.7 g/dL (13.3-17.7)
[2022-03-28 10:14] LABS: ALBUMIN 3.5 GM/DL (3.2-4.5); POTASSIUM 3.6 MMOL/L (3.6-5.0)
[2022-03-28 10:15] LABS: CALCIUM 7.4 MG/DL (8.5-10.1)
[2022-03-28 10:16] LABS: TOTAL PROTEIN 6.3 GM/DL (6.4-8.2)
[2022-03-28 10:18] LABS: BILIRUBIN,TOTAL 0.6 MG/DL (0.1-1.0)
[2022-03-28 10:20] LABS: CREATININE SERUM 1.05 MG/DL (0.60-1.30)
[~2022-04-04] MED LIST changes: +NS IV 500 ML 500 ML IV SCH
[2022-04-04 09:31] LABS: BASOPHILS # (AUTO) 0.2 10^3/uL (0.0-0.1); BASOPHILS % (AUTO) 5 % (0-10); EOSINOPHILS # (AUTO) 0.6 10^3/uL (0.0-0.3); EOSINOPHILS % (AUTO) 14 % (0-10); HEMATOCRIT 22 % (40-54); HEMOGLOBIN 7.1 g/dL (13.3-17.7); LYMPHOCYTES % (AUTO) 21 % (12-44); MEAN CORPUSCULAR HEMOGLOBIN 30 pg (25-34); MEAN CORPUSCULAR HGB CONC 32 g/dL (32-36); MEAN CORPUSCULAR VOLUME 92 fL (80-99); MEAN PLATELET VOLUME 10.1 fL (9.0-12.2); MONOCYTES # (AUTO) 0.4 10^3/uL (0.0-1.0); MONOCYTES % (AUTO) 10 % (0-12); NEUTROPHILS # (AUTO) 2.2 10^3/uL (1.8-7.8); NEUTROPHILS % (AUTO) 49 % (42-75); PLATELET COUNT 415 10^3/uL (130-400); WHITE BLOOD COUNT 4.5 10^3/uL (4.3-11.0)
[2022-04-04 09:56] LABS: ALBUMIN 3.3 GM/DL (3.2-4.5); BILIRUBIN,TOTAL 0.5 MG/DL (0.1-1.0); CALCIUM 7.5 MG/DL (8.5-10.1); CREATININE SERUM 1.02 MG/DL (0.60-1.30); POTASSIUM 3.7 MMOL/L (3.6-5.0); TOTAL PROTEIN 5.9 GM/DL (6.4-8.2)
== END | disposition home or self-care (01) ==
LOC: ONC 03-07 09:06
PROVIDERS: ATTEND Internal Medicine Hematology & Oncology
DX: D47.3 Essential (hemorrhagic) thrombocythemia (principal); D46.9 Myelodysplastic syndrome, unspecified; E78.2 Mixed hyperlipidemia; I10 Essential (primary) hypertension
CPT/HCPCS: 80053; 85025; G0463; 36415; 36430; 36591; 86850; 86900; 86901; 86920; 99213

== ENCOUNTER 2022-04-11 11:16 | Emergency (ER) | payer MEDICARE ==
[~2022-04-11] VITALS: Ht 188 cm; Wt 60.3 kg
[~2022-04-11 11:16] MED LIST changes: +BISA5TAB20 PO; -BISA5TAB8 PO; -NS IV 500 ML 500 ML IV SCH
--- NOTE | 2022-04-11 11:30 | ED Cardiac General ---
History of Present Illness General Chief Complaint: Cardiac/General Problems Stated Complaint: A-FLUTTER Source: patient Exam Limitations: no limitations (JUANITO MCCARTHY APRN) History of Present Illness Date Seen by Provider: Apr 11, 2022 Time Seen by Provider: 11:25 Initial Comments Patient is a 76-year-old male who presents to the emergency department from the oncology clinic where he was noted to be and reported a flutter on EKG. Patient was noted to have a rapid heart rate which prompted obtaining the EKG. The clinic staff talked with Dr. Pagan, patient's primary account solutions analyst, who recommended the patient be evaluated in the emergency department. Patient states he has a history of paroxysmal A. fib and he could tell that his heart rate was increased. He states typically when this happens at home he lies on h is right side and shortly thereafter the rapid heart rate usually resolves. States he is not having any feelings of palpitations or rapid heart rate at this time. Denies any chest pain or shortness of breath during the onset of symptoms. Patient typically gets blood transfusions every 7 to 10 days. His hemoglobin in the clinic today was 7.8 and he did not need blood transfusion. Last transfusion was last Monday. CBC and CMP obtained in the clinic are otherwise unremarkable compared to patient's recent baseline. Patient denies any other complaints at this time. His port was accessed in the clinic and he arrived to the ED with the access in place. (JUANITO MCCARTHY APRN) Allergies and Home Medications Allergies Coded Allergies: Sulfa (Sulfonamide Antibiotics) (Verified Allergy, Intermediate, RASH, TROUBLE BREATHING, 03/14/22) Tetanus Vaccines and Toxoid (Verified Allergy, Unknown, ARMS SWELLS , 03/14/22) cephalexin (Verified Allergy, Unknown, RASH, 03/14/22) Patient Home Medication List Home Medication List Reviewed: Yes (JUANITO MCCARTHY APRN) Acetaminophen (Tylenol Extra Strength) 500 Mg Tablet, 500 MG PO Q8H PRN for PAIN-MILD (1-4), (Reported) Entered as Reported by: BRUCE MENCHACA on 12/27/21 1333 Cholestyramine (with Sugar) (Cholestyramine Packet) 4 Gram Powd.pack, 4 GM PO DAILY, (Reported) Entered as Reported by: BRUCE MENCHACA on 12/27/21 1337 Finasteride (Finasteride) 5 Mg Tablet, 5 MG PO DAILY, (Reported) Entered as Reported by: JOCELYN REVELES on 03/15/19 1229 Lenalidomide (Revlimid) 2.5 Mg Capsule, 5 MG PO HS, (Reported) Entered as Reported by: BRUCE MENCHACA on 12/27/21 1335 Prednisone (Prednisone) 10 Mg Tab, UD, (Reported) Entered as Reported by: SAMIR NGUYEN on 03/14/22 0957 Tamsulosin HCl (Flomax) 0.4 Mg Cap, 0.8 MG PO DAILY, (Reported) Entered as Reported by: JOCELYN REVELES on 03/15/19 1229 Review of Systems Review of Systems Constitutional: no symptoms reported EENTM: No Symptoms Reported Respiratory: No Symptoms Reported Cardiovascular: See HPI Gastrointestinal: No Symptoms Reported Genitourinary: No Symptoms Reported Musculoskeletal: no symptoms reported Skin: no symptoms reported Psychiatric/Neurological: No Symptoms Reported (JUANITO MCCARTHY APRN) Past Ejzixef-Udpoie-Yfdcwj Hx Immunizations Up To Date Tetanus Booster (TDap): Unknown PED Vaccines UTD: Yes First/Initial COVID19 Vaccinat: 2020 Second COVID19 Vaccination Brendon: UNKNOWN DATE Third COVID19 Vaccination Date: UNKNOWN DATE (JUANITO MCCARTHY APRN) Seasonal Allergies Seasonal Allergies: No (JUANITO MCCARTHY APRN) Past Medical History Surgery/Hospitalization HX: PAD, ANEMIA, TYPE OF LEUKEMIA, UTI, PVD, RBK AMP 2018 Surgeries: Yes (RIGHT BKA 03/2019;PICC LINE IN R ARM OF 06/30/19;LOOP RECORDER 04/15/20) Amputation, Cardiac, Orthopedic, Tonsillectomy Respiratory: Yes (RESPIRATORY FAILURE WITH SIRS AND PNEUMONIA 04/2019; PNEUMONIA 05/2019) Asthma, Pneumonia, COPD Currently Using CPAP: No Currently Using BIPAP: No Cardiac: Yes (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;LOOP RECORDER) Atrial Fibrillation, High Cholesterol, Hypertension, Peripheral Vascular Neurological: Yes (POSSIBLY PER ) Dementia Genitourinary: Yes (HX OF HEMATURIA; HX OF RENAL FAILURE WITH SIRS/PNEUMONIA 04/2019) Benign Prostatic Hyperpl, Bladder Infection, Renal Failure Gastrointestinal: Yes (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) Chronic Constipation Musculoskeletal: Yes (RIGHT BKA; GENERALIZED WEAKNESS) Amputee, Arthritis Endocrine: No HEENT: Yes Hearing Impairment: Hard of Hearing, Bilateral Hearing Aide Cancer: Yes (MYELODYSPLASTIC DISORDER WITH LEUKOPENIA, ANEMIA AND THROMBOCYTOSIS) Did You Recieve Any Treatments: Yes What Type of Treatment Did You: Chemotherapy Psychosocial: Yes (SLEEPS 19-20 HOURS) Integumentary: Yes (LEFT ANKLE /LEFT HEEL WOUND; PYODERMA GANGRENOSUM) Blood Disorders: Yes (refractory anemia /ring sideroblasts W/ thrombocytosis;MYELODYSPLASIA) Adverse Reaction/Blood Tranf: No (JUANITO MCCARTHY APRN) Family Medical History No Pertinent Family Hx, Hypertension MYELODYSPLASTIC SYNDROME /MYELOPROLIFERATIVE DISORDER WAS DX 2016 IN [place]. HAD BEEN ON HYDROXYUREA, THIS WAS DC'D AND PT HAS BEEN ON ANAGRELIDE SINCE 03/2019. RECEIVES WEEKLY BLOOD TRANSFUSIONS--EVERY MONDAY ADDITIONAL PMH : -NSTEMI 04/23/19. -MULTIPLE EPISODES OF RESPIRATORY FAILURE (JUANITO MCCARTHY APRN) Physical Exam Vital Signs Vital Signs - First Documented 04/11/22 11:20 Temp 35.8 Pulse 58 Resp 16 B/P (MAP) 104/53 (70) Pulse Ox 98 O2 Delivery Room Air (GLORIA WISE MD) Vital Signs Capillary Refill : (JUANITO MCCARTHY APRN) Height, Weight, BMI Height: 6'1.00" Weight: 196lbs. oz. 88.395547lm; 19.80 BMI Method:Stated General Appearance: No Apparent Distress, Chronically ill, Cachetic HEENT: PERRL/EOMI, TMs Normal, Normal ENT Inspection, Pharynx Normal Neck: Full Range of Motion, Normal Inspection, Non Tender, Supple Respiratory: Chest Non Tender, Lungs Clear, Normal Breath Sounds, No Accessory Muscle Use Cardiovascular: Regular Rate, Rhythm Gastrointestinal: Normal Bowel Sounds Extremity: Normal Capillary Refill, Normal Inspection, Normal Range of Motion Neurologic/Psychiatric: Alert, Oriented x3, No Motor/Sensory Deficits, Normal Mood/Affect Skin: Normal Color, Warm/Dry (JUANITO MCCARTHY APRN) Progress/Results/Core Measures Results/Orders Lab Results Laboratory Tests Test 04/11/22 11:30 Range/Units White Blood Count 6.6 4.3-11.0 10^3/uL Red Blood Count 2.47 L 4.30-5.52 10^6/uL Hemoglobin 7.1 L 13.3-17.7 g/dL Hematocrit 23 L 40-54 % Mean Corpuscular Volume 91 80-99 fL Mean Corpuscular Hemoglobin 29 25-34 pg Mean Corpuscular Hemoglobin Concent 32 32-36 g/dL Red Cell Distribution Width 16.3 H 10.0-14.5 % Platelet Count 367 130-400 10^3/uL Mean Platelet Volume 10.8 9.0-12.2 fL Immature Granulocyte % (Auto) 2 % Neutrophils (%) (Auto) 70 42-75 % Lymphocytes (%) (Auto) 9 L 12-44 % Monocytes (%) (Auto) 13 H 0-12 % Eosinophils (%) (Auto) 4 0-10 % Basophils (%) (Auto) 3 0-10 % Neutrophils # (Auto) 4.6 1.8-7.8 10^3/uL Lymphocytes # (Auto) 0.6 L 1.0-4.0 10^3/uL Monocytes # (Auto) 0.8 0.0-1.0 10^3/uL Eosinophils # (Auto) 0.3 0.0-0.3 10^3/uL Basophils # (Auto) 0.2 H 0.0-0.1 10^3/uL Immature Granulocyte # (Auto) 0.1 0.0-0.1 10^3/uL Sodium Level 140 135-145 MMOL/L Potassium Level 4.0 3.6-5.0 MMOL/L Chloride Level 106 98-107 MMOL/L Carbon Dioxide Level 22 21-32 MMOL/L Anion Gap 12 5-14 MMOL/L Blood Urea Nitrogen 25 H 7-18 MG/DL Creatinine 1.14 0.60-1.30 MG/DL Estimat Glomerular Filtration Rate 66 BUN/Creatinine Ratio 22 Glucose Level 118 H 70-105 MG/DL Calcium Level 7.9 L 8.5-10.1 MG/DL Corrected Calcium 8.3 L 8.5-10.1 MG/DL Total Bilirubin 0.3 0.1-1.0 MG/DL Aspartate Amino Transf (AST/SGOT) 28 5-34 U/L Alanine Aminotransferase (ALT/SGPT) 101 H 0-55 U/L Alkaline Phosphatase 75 40-136 U/L Troponin I < 0.028 <0.028 NG/ML Total Protein 6.0 L 6.4-8.2 GM/DL Albumin 3.5 3.2-4.5 GM/DL (GLORIA WISE MD) Medications Given in ED Current Medications Medications Dose Ordered Sig/[place] Route Start Time Stop Time Status Last Admin Dose Admin Heparin Sodium (Porcine) 500 unit ONCE ONCE IV 04/11/22 12:30 04/11/22 12:31 DC 04/11/22 12:33 500 UNIT (GLORIA WISE MD) Vital Signs/I&O 04/11/22 04/11/22 11:20 12:45 Temp 35.8 Pulse 58 48 Resp 16 16 B/P (MAP) 104/53 (70) 129/58 Pulse Ox 98 98 O2 Delivery Room Air (GLORIA WISE MD) Progress Progress Note : Progress Note Patient is nontoxic and well-hydrated on exam. No adventitious lung sounds or increased work of breathing noted. Regular pulse appreciated on exam. Patient appears to be in sinus bradycardia he is placed on continuous cardiac jose cruz toring. EKG was obtained which confirms sinus bradycardia. No other marked abnormality noted. Mild T wave abnormality noted in V3 with mild biphasic pattern but not meeting criteria for true Wellen sign. Review of CBC and CMP completed at the clinic are largely unremarkable in the context of patient's recent baseline per review of recent laboratory findings. Troponin obtained in the emergency department that is negative. Patient has remained without any acute symptomology. (JUANITO MCCARTHY APRN) EKG : EKG Time: 11:27 Rate: 55 Rhythm: S.Nikolay Intervals: Normal ECG Impression: Nonspecific Changes Comment Mild T wave abnormality in V3 with somewhat biphasic appearance; does not meet criteria for true Wellens sign as this is only present in V3 and patient has had no recent chest pain (JUANITO MCCARTHY APRN) Consults : Consulting Physician: JULISSA PAGAN MD Consults Notes discussed that patient had converted spontaneously to sinus bradycardia; states pt ok to go home; no changes to medications recommended (JUANITO MCCARTHY APRN) Departure Impression Primary Impression: Arrhythmia Qualified Codes: I49.9 - Cardiac arrhythmia, unspecified Disposition: 01 HOME, SELF-CARE Condition: Stable Departure-Patient Inst. Decision time for Depature: 12:30 (JUANITO MCCARTHY APRN) Referrals: KEVIN BURCH DO (PCP/Family) Primary Care Physician Patient Instructions: Arrhythmias ATTENDING PHYSICIAN NOTE: I was physically present as attending physician in the emergency department during the care of this patient, but I was not directly involved in the decision making or delivery of care for this patient. (GLORIA WISE MD) JUANITO MCCARTHY APRN Apr 11, 2022 11:30 GLORIA WISE MD Apr 11, 2022 18:56
[2022-04-11 11:38] LABS: BASOPHILS # (AUTO) 0.2 10^3/uL (0.0-0.1); BASOPHILS % (AUTO) 3 % (0-10); EOSINOPHILS # (AUTO) 0.3 10^3/uL (0.0-0.3); EOSINOPHILS % (AUTO) 4 % (0-10); HEMATOCRIT 23 % (40-54); HEMOGLOBIN 7.1 g/dL (13.3-17.7); LYMPHOCYTES # (AUTO) 0.6 10^3/uL (1.0-4.0); LYMPHOCYTES % (AUTO) 9 % (12-44); MEAN CORPUSCULAR HEMOGLOBIN 29 pg (25-34); MEAN CORPUSCULAR HGB CONC 32 g/dL (32-36); MEAN CORPUSCULAR VOLUME 91 fL (80-99); MEAN PLATELET VOLUME 10.8 fL (9.0-12.2); MONOCYTES # (AUTO) 0.8 10^3/uL (0.0-1.0); MONOCYTES % (AUTO) 13 % (0-12); NEUTROPHILS # (AUTO) 4.6 10^3/uL (1.8-7.8); NEUTROPHILS % (AUTO) 70 % (42-75); PLATELET COUNT 367 10^3/uL (130-400); WHITE BLOOD COUNT 6.6 10^3/uL (4.3-11.0)
[2022-04-11 11:47] LABS: ALBUMIN 3.5 GM/DL (3.2-4.5); CHLORIDE 106 MMOL/L (98-107); SODIUM 140 MMOL/L (135-145)
[2022-04-11 11:48] LABS: CALCIUM 7.9 MG/DL (8.5-10.1)
[2022-04-11 11:49] LABS: GLUCOSE 118 MG/DL (70-105)
[2022-04-11 11:50] LABS: CARBON DIOXIDE 22 MMOL/L (21-32)
[2022-04-11 11:51] LABS: BILIRUBIN,TOTAL 0.3 MG/DL (0.1-1.0)
[2022-04-11 11:52] LABS: ALKALINE PHOSPHATASE 75 U/L (40-136)
[2022-04-11 11:53] LABS: CREATININE SERUM 1.14 MG/DL (0.60-1.30); GFR ESTIMATED 66
[2022-04-11 11:54] LABS: BUN/CREATININE RATIO 22
[2022-04-11 11:56] LABS: ALANINE AMINOTRANSFERASE 101 U/L (0-55)
--- NOTE | 2022-04-11 12:15 | Diagnostic Imaging Report ---
CHEST 1 VIEW, AP/PA ONLY Indication: Chest discomfort Comparison: 12/27/2021 Findings: Right subclavian Port-A-Cath with tip terminating at the superior cavoatrial junction. Low lung volumes. No consolidation. No pleural effusion or pneumothorax. Borderline cardiomegaly. Impression: 1. No acute cardiopulmonary process by portable radiography. Dictated by: Dictated on workstation # [id number]
[2022-04-11] MEDS ORDERED: HEParin (CENTRAL IV FLUSH) 500 UNIT/5 ML SYR IV ONE (12:30)
[2022-04-11 12:45] VITALS: BP 129/58
== END 2022-04-11 12:45 | disposition home or self-care (01) ==
LOC: EDUNIT# 11:16 → ER 11:18
DX: I49.8 Other specified cardiac arrhythmias (principal); Z28.311 Partially vaccinated for COVID-19; Z86.79 Personal history of other diseases of the circulatory system
CPT/HCPCS: 36415; 71045; 80053; 84484; 85025; 93005

== ENCOUNTER → 2022-04-18 | Outpatient (CLI) | payer MEDICARE ==
[~2022-04-18] MED LIST changes: +NS IV 500 ML 500 ML IV SCH; +NS IV 500 ML 500 ML ONE
[2022-04-18 09:32] LABS: BASOPHILS # (AUTO) 0.1 10^3/uL (0.0-0.1); BASOPHILS % (AUTO) 2 % (0-10); EOSINOPHILS # (AUTO) 0.3 10^3/uL (0.0-0.3); EOSINOPHILS % (AUTO) 4 % (0-10); LYMPHOCYTES # (AUTO) 0.7 10^3/uL (1.0-4.0); LYMPHOCYTES % (AUTO) 12 % (12-44); MEAN CORPUSCULAR HEMOGLOBIN 29 pg (25-34); MEAN CORPUSCULAR HGB CONC 32 g/dL (32-36); MEAN CORPUSCULAR VOLUME 90 fL (80-99); MEAN PLATELET VOLUME 10.3 fL (9.0-12.2); MONOCYTES # (AUTO) 0.9 10^3/uL (0.0-1.0); MONOCYTES % (AUTO) 15 % (0-12); NEUTROPHILS # (AUTO) 3.9 10^3/uL (1.8-7.8); NEUTROPHILS % (AUTO) 65 % (42-75); PLATELET COUNT 381 10^3/uL (130-400)
[2022-04-18 09:33] LABS: HEMOGLOBIN 5.9 g/dL (13.3-17.7)
[2022-04-18 09:34] LABS: HEMATOCRIT 18 % (40-54)
[2022-04-18 09:52] LABS: ALBUMIN 3.6 GM/DL (3.2-4.5); BILIRUBIN,TOTAL 0.4 MG/DL (0.1-1.0); CALCIUM 7.7 MG/DL (8.5-10.1); CREATININE SERUM 1.15 MG/DL (0.60-1.30); POTASSIUM 4.2 MMOL/L (3.6-5.0)
== END ==
LOC: ONC 09:25
PROVIDERS: ATTEND Internal Medicine Hematology & Oncology
DX: Z45.2 Encounter for adjustment and management of vascular access device (principal); D46.9 Myelodysplastic syndrome, unspecified; D47.3 Essential (hemorrhagic) thrombocythemia; I10 Essential (primary) hypertension; E78.2 Mixed hyperlipidemia; K21.9 Gastro-esophageal reflux disease without esophagitis
CPT/HCPCS: 36430; 80053; 85025; 86850; 86900; 86901; 86920; P9016; 36591

== ENCOUNTER → 2022-05-04 | Outpatient (RCR) | payer MEDICARE ==
[2021-10-20 16:15] VITALS: BP 147/62
[2022-04-06 09:59] LABS: BASOPHILS # (AUTO) 0.2 10^3/uL (0.0-0.1); BASOPHILS % (AUTO) 4 % (0-10); EOSINOPHILS # (AUTO) 0.4 10^3/uL (0.0-0.3); EOSINOPHILS % (AUTO) 8 % (0-10); HEMATOCRIT 21 % (40-54); LYMPHOCYTES # (AUTO) 0.9 10^3/uL (1.0-4.0); LYMPHOCYTES % (AUTO) 20 % (12-44); MEAN CORPUSCULAR HEMOGLOBIN 30 pg (25-34); MEAN CORPUSCULAR HGB CONC 32 g/dL (32-36); MEAN CORPUSCULAR VOLUME 92 fL (80-99); MEAN PLATELET VOLUME 10.7 fL (9.0-12.2); MONOCYTES # (AUTO) 0.5 10^3/uL (0.0-1.0); MONOCYTES % (AUTO) 12 % (0-12); NEUTROPHILS # (AUTO) 2.5 10^3/uL (1.8-7.8); NEUTROPHILS % (AUTO) 55 % (42-75); PLATELET COUNT 425 10^3/uL (130-400); WHITE BLOOD COUNT 4.5 10^3/uL (4.3-11.0)
[2022-04-06 10:00] LABS: HEMOGLOBIN 6.9 g/dL (13.3-17.7)
[2022-04-11 09:58] LABS: BASOPHILS # (AUTO) 0.2 10^3/uL (0.0-0.1); BASOPHILS % (AUTO) 3 % (0-10); EOSINOPHILS # (AUTO) 0.3 10^3/uL (0.0-0.3); EOSINOPHILS % (AUTO) 4 % (0-10); HEMATOCRIT 24 % (40-54); HEMOGLOBIN 7.6 g/dL (13.3-17.7); LYMPHOCYTES % (AUTO) 13 % (12-44); MEAN CORPUSCULAR HEMOGLOBIN 29 pg (25-34); MEAN CORPUSCULAR HGB CONC 32 g/dL (32-36); MEAN CORPUSCULAR VOLUME 90 fL (80-99); MONOCYTES # (AUTO) 1.1 10^3/uL (0.0-1.0); MONOCYTES % (AUTO) 15 % (0-12); NEUTROPHILS # (AUTO) 4.6 10^3/uL (1.8-7.8); NEUTROPHILS % (AUTO) 64 % (42-75); PLATELET COUNT 422 10^3/uL (130-400); WHITE BLOOD COUNT 7.3 10^3/uL (4.3-11.0)
[2022-04-11 10:16] LABS: ALBUMIN 3.7 GM/DL (3.2-4.5); BILIRUBIN,TOTAL 0.2 MG/DL (0.1-1.0); CALCIUM 8.1 MG/DL (8.5-10.1); CREATININE SERUM 1.11 MG/DL (0.60-1.30); POTASSIUM 3.9 MMOL/L (3.6-5.0); TOTAL PROTEIN 6.3 GM/DL (6.4-8.2)
[2022-04-20 10:20] LABS: BASOPHILS # (AUTO) 0.2 10^3/uL (0.0-0.1); BASOPHILS % (AUTO) 3 % (0-10); EOSINOPHILS # (AUTO) 0.3 10^3/uL (0.0-0.3); EOSINOPHILS % (AUTO) 6 % (0-10); HEMATOCRIT 21 % (40-54); LYMPHOCYTES % (AUTO) 18 % (12-44); MEAN CORPUSCULAR HEMOGLOBIN 29 pg (25-34); MEAN CORPUSCULAR HGB CONC 33 g/dL (32-36); MEAN CORPUSCULAR VOLUME 88 fL (80-99); MEAN PLATELET VOLUME 10.8 fL (9.0-12.2); MONOCYTES # (AUTO) 0.7 10^3/uL (0.0-1.0); MONOCYTES % (AUTO) 12 % (0-12); NEUTROPHILS # (AUTO) 3.5 10^3/uL (1.8-7.8); NEUTROPHILS % (AUTO) 60 % (42-75); PLATELET COUNT 360 10^3/uL (130-400); WHITE BLOOD COUNT 5.7 10^3/uL (4.3-11.0)
[2022-04-20 10:25] LABS: HEMOGLOBIN 6.7 g/dL (13.3-17.7)
[2022-04-20 10:43] LABS: ALBUMIN 3.6 GM/DL (3.2-4.5); BILIRUBIN,TOTAL 0.4 MG/DL (0.1-1.0); POTASSIUM 3.8 MMOL/L (3.6-5.0); TOTAL PROTEIN 6.1 GM/DL (6.4-8.2)
[2022-04-25 09:03] LABS: BASOPHILS # (AUTO) 0.1 10^3/uL (0.0-0.1); BASOPHILS % (AUTO) 2 % (0-10); EOSINOPHILS # (AUTO) 0.4 10^3/uL (0.0-0.3); EOSINOPHILS % (AUTO) 5 % (0-10); HEMATOCRIT 22 % (40-54); LYMPHOCYTES # (AUTO) 0.6 10^3/uL (1.0-4.0); LYMPHOCYTES % (AUTO) 8 % (12-44); MEAN CORPUSCULAR HEMOGLOBIN 29 pg (25-34); MEAN CORPUSCULAR HGB CONC 32 g/dL (32-36); MEAN CORPUSCULAR VOLUME 91 fL (80-99); MEAN PLATELET VOLUME 10.9 fL (9.0-12.2); MONOCYTES # (AUTO) 0.8 10^3/uL (0.0-1.0); MONOCYTES % (AUTO) 10 % (0-12); NEUTROPHILS # (AUTO) 5.5 10^3/uL (1.8-7.8); NEUTROPHILS % (AUTO) 73 % (42-75); PLATELET COUNT 460 10^3/uL (130-400); WHITE BLOOD COUNT 7.6 10^3/uL (4.3-11.0)
[2022-04-25 09:05] LABS: HEMOGLOBIN 6.9 g/dL (13.3-17.7)
[2022-04-25 09:39] LABS: ALBUMIN 3.6 GM/DL (3.2-4.5); BILIRUBIN,TOTAL 0.3 MG/DL (0.1-1.0); CALCIUM 7.8 MG/DL (8.5-10.1); CREATININE SERUM 1.17 MG/DL (0.60-1.30); TOTAL PROTEIN 6.3 GM/DL (6.4-8.2)
[2022-05-02 09:12] LABS: BASOPHILS # (AUTO) 0.2 10^3/uL (0.0-0.1); BASOPHILS % (AUTO) 2 % (0-10); EOSINOPHILS # (AUTO) 0.3 10^3/uL (0.0-0.3); EOSINOPHILS % (AUTO) 5 % (0-10); HEMATOCRIT 22 % (40-54); LYMPHOCYTES # (AUTO) 0.6 10^3/uL (1.0-4.0); LYMPHOCYTES % (AUTO) 9 % (12-44); MEAN CORPUSCULAR HEMOGLOBIN 29 pg (25-34); MEAN CORPUSCULAR HGB CONC 32 g/dL (32-36); MEAN CORPUSCULAR VOLUME 90 fL (80-99); MEAN PLATELET VOLUME 10.4 fL (9.0-12.2); MONOCYTES # (AUTO) 0.8 10^3/uL (0.0-1.0); MONOCYTES % (AUTO) 12 % (0-12); NEUTROPHILS # (AUTO) 4.7 10^3/uL (1.8-7.8); NEUTROPHILS % (AUTO) 70 % (42-75); PLATELET COUNT 454 10^3/uL (130-400); WHITE BLOOD COUNT 6.7 10^3/uL (4.3-11.0)
[2022-05-02 09:31] LABS: ALBUMIN 3.6 GM/DL (3.2-4.5); BILIRUBIN,TOTAL 0.3 MG/DL (0.1-1.0); CALCIUM 8.1 MG/DL (8.5-10.1); CREATININE SERUM 0.96 MG/DL (0.60-1.30); POTASSIUM 3.8 MMOL/L (3.6-5.0)
[~2022-05-04] MED LIST changes: +NS (IVPB) 250 ML ONE
[2022-05-04 08:56] LABS: BASOPHILS # (AUTO) 0.2 10^3/uL (0.0-0.1); BASOPHILS % (AUTO) 3 % (0-10); EOSINOPHILS # (AUTO) 0.4 10^3/uL (0.0-0.3); EOSINOPHILS % (AUTO) 6 % (0-10); HEMATOCRIT 22 % (40-54); HEMOGLOBIN 6.9 g/dL (13.3-17.7); LYMPHOCYTES # (AUTO) 0.7 10^3/uL (1.0-4.0); LYMPHOCYTES % (AUTO) 11 % (12-44); MEAN CORPUSCULAR HEMOGLOBIN 29 pg (25-34); MEAN CORPUSCULAR HGB CONC 32 g/dL (32-36); MEAN CORPUSCULAR VOLUME 90 fL (80-99); MEAN PLATELET VOLUME 10.5 fL (9.0-12.2); MONOCYTES # (AUTO) 0.7 10^3/uL (0.0-1.0); MONOCYTES % (AUTO) 11 % (0-12); NEUTROPHILS # (AUTO) 4.4 10^3/uL (1.8-7.8); NEUTROPHILS % (AUTO) 68 % (42-75); PLATELET COUNT 485 10^3/uL (130-400); WHITE BLOOD COUNT 6.5 10^3/uL (4.3-11.0)
== END | disposition home or self-care (01) ==
LOC: ONC 04-06 09:23
PROVIDERS: ATTEND Internal Medicine Hematology & Oncology
DX: Z45.2 Encounter for adjustment and management of vascular access device (principal); D47.3 Essential (hemorrhagic) thrombocythemia; D46.9 Myelodysplastic syndrome, unspecified; E78.2 Mixed hyperlipidemia; I10 Essential (primary) hypertension
CPT/HCPCS: 36430; 85025; 86850; 86900; 86901; 86920; P9016; 36591; 80053

== ENCOUNTER → 2022-05-18 | Outpatient (CLI) | payer MEDICARE ==
[~2022-05-18] MED LIST changes: -NS (IVPB) 250 ML ONE; -NS IV 500 ML 500 ML IV SCH; -NS IV 500 ML 500 ML ONE
--- NOTE | 2022-05-18 10:00 | Diagnostic Imaging Report ---
Clinical indications: Patient with memory loss and cephalgia. Exam: Axial CT scan of the brain without IV contrast with coronal and sagittal reformatted images. Auto Exposure Controls were utilized during the CT exam to meet ALARA standards for radiation dose reduction. Comparison: Head CT without contrast dated 05/30/2019. Findings: There is no evidence of acute cerebral infarct, intracranial hemorrhage, or gross mass effect. There is interval progression of brain parenchymal volume loss. There are small patchy areas of low-density involving white matter both cerebral hemispheres, likely representing chronic small vessel ischemic disease. There is normal burgess-white matter distinction. There is no significant midline shift or herniation. There is no evidence of hydrocephalus. The basal cisterns are unremarkable. The skull, extracranial soft tissue, and orbits are unremarkable. The paranasal sinuses are unremarkable. Temporal bones show no significant abnormality. Impression: 1: There is no evidence of acute intracranial process. 2: Chronic small vessel ischemic disease. There is interval progression of brain parenchymal volume loss. Dictated by: Dictated on workstation # [id number]
== END ==
LOC: RAD 09:45
PROVIDERS: ATTEND Family Medicine
DX: I67.82 Cerebral ischemia (principal)
CPT/HCPCS: 70450

== ENCOUNTER 2022-05-23 08:41 | Outpatient (RCR) | payer MEDICARE ==
[2021-10-20 16:15] VITALS: BP 147/62
[2022-05-11 08:45] LABS: BASOPHILS # (AUTO) 0.1 10^3/uL (0.0-0.1); BASOPHILS % (AUTO) 2 % (0-10); EOSINOPHILS # (AUTO) 0.3 10^3/uL (0.0-0.3); EOSINOPHILS % (AUTO) 5 % (0-10); HEMATOCRIT 23 % (40-54); HEMOGLOBIN 7.3 g/dL (13.3-17.7); LYMPHOCYTES # (AUTO) 0.6 10^3/uL (1.0-4.0); LYMPHOCYTES % (AUTO) 9 % (12-44); MEAN CORPUSCULAR HEMOGLOBIN 29 pg (25-34); MEAN CORPUSCULAR HGB CONC 32 g/dL (32-36); MEAN CORPUSCULAR VOLUME 90 fL (80-99); MEAN PLATELET VOLUME 10.7 fL (9.0-12.2); MONOCYTES # (AUTO) 1.1 10^3/uL (0.0-1.0); MONOCYTES % (AUTO) 16 % (0-12); NEUTROPHILS # (AUTO) 4.6 10^3/uL (1.8-7.8); NEUTROPHILS % (AUTO) 67 % (42-75); PLATELET COUNT 493 10^3/uL (130-400); WHITE BLOOD COUNT 6.9 10^3/uL (4.3-11.0)
[2022-05-11 09:05] LABS: ALBUMIN 3.7 GM/DL (3.2-4.5); BILIRUBIN,TOTAL 0.4 MG/DL (0.1-1.0); CALCIUM 8.3 MG/DL (8.5-10.1); CREATININE SERUM 1.17 MG/DL (0.60-1.30); POTASSIUM 3.7 MMOL/L (3.6-5.0); TOTAL PROTEIN 5.9 GM/DL (6.4-8.2)
[2022-05-16 09:59] LABS: BASOPHILS # (AUTO) 0.1 10^3/uL (0.0-0.1); BASOPHILS % (AUTO) 2 % (0-10); EOSINOPHILS # (AUTO) 0.2 10^3/uL (0.0-0.3); EOSINOPHILS % (AUTO) 4 % (0-10); LYMPHOCYTES # (AUTO) 0.6 10^3/uL (1.0-4.0); LYMPHOCYTES % (AUTO) 10 % (12-44); MEAN CORPUSCULAR HEMOGLOBIN 28 pg (25-34); MEAN CORPUSCULAR HGB CONC 32 g/dL (32-36); MEAN CORPUSCULAR VOLUME 89 fL (80-99); MONOCYTES # (AUTO) 0.8 10^3/uL (0.0-1.0); MONOCYTES % (AUTO) 14 % (0-12); NEUTROPHILS % (AUTO) 69 % (42-75); PLATELET COUNT 475 10^3/uL (130-400); WHITE BLOOD COUNT 5.8 10^3/uL (4.3-11.0)
[2022-05-16 10:01] LABS: HEMATOCRIT 20 % (40-54); HEMOGLOBIN 6.3 g/dL (13.3-17.7)
[2022-05-16 10:22] LABS: ALBUMIN 3.6 GM/DL (3.2-4.5); BILIRUBIN,TOTAL 0.3 MG/DL (0.1-1.0); CALCIUM 8.1 MG/DL (8.5-10.1); CREATININE SERUM 0.94 MG/DL (0.60-1.30); POTASSIUM 3.6 MMOL/L (3.6-5.0); TOTAL PROTEIN 6.1 GM/DL (6.4-8.2)
[~2022-05-23 08:41] MED LIST changes: +NS IV 500 ML 500 ML IV SCH; +NS IV 500 ML 500 ML ONE
[2022-05-23 09:10] LABS: BASOPHILS # (AUTO) 0.1 10^3/uL (0.0-0.1); BASOPHILS % (AUTO) 1 % (0-10); EOSINOPHILS # (AUTO) 0.3 10^3/uL (0.0-0.3); EOSINOPHILS % (AUTO) 4 % (0-10); LYMPHOCYTES # (AUTO) 0.6 10^3/uL (1.0-4.0); LYMPHOCYTES % (AUTO) 8 % (12-44); MEAN CORPUSCULAR HEMOGLOBIN 28 pg (25-34); MEAN CORPUSCULAR HGB CONC 32 g/dL (32-36); MEAN CORPUSCULAR VOLUME 88 fL (80-99); MEAN PLATELET VOLUME 10.9 fL (9.0-12.2); MONOCYTES # (AUTO) 0.9 10^3/uL (0.0-1.0); MONOCYTES % (AUTO) 12 % (0-12); NEUTROPHILS # (AUTO) 5.6 10^3/uL (1.8-7.8); NEUTROPHILS % (AUTO) 72 % (42-75); PLATELET COUNT 467 10^3/uL (130-400); WHITE BLOOD COUNT 7.8 10^3/uL (4.3-11.0)
[2022-05-23 09:12] LABS: HEMATOCRIT 20 % (40-54); HEMOGLOBIN 6.6 g/dL (13.3-17.7)
[2022-05-23] MEDS ORDERED: NS IV 500 ML 500 ML IV SCH (09:45)
[2022-05-23] MEDS ORDERED: NS IV 500 ML 500 ML ONE (10:16)
== END 2022-06-04 | disposition home or self-care (01) ==
LOC: ONC 08:41
PROVIDERS: ATTEND Internal Medicine Hematology & Oncology
DX: Z45.2 Encounter for adjustment and management of vascular access device (principal); D47.3 Essential (hemorrhagic) thrombocythemia; D46.9 Myelodysplastic syndrome, unspecified; E78.2 Mixed hyperlipidemia; I10 Essential (primary) hypertension
CPT/HCPCS: 36430; 36591; 80053; 85025; 86850; 86900; 86901; 86920

== ENCOUNTER 2022-06-01 16:29 | Emergency (ER) | payer MEDICARE ==
[~2022-06-01] VITALS: Ht 187.9 cm; Wt 74.8 kg
[~2022-06-01 16:29] MED LIST changes: -NS IV 500 ML 500 ML IV SCH; -NS IV 500 ML 500 ML ONE
[2022-06-01 17:43] LABS: ALBUMIN 3.5 GM/DL (3.2-4.5); POTASSIUM 4.7 MMOL/L (3.6-5.0)
[2022-06-01 17:44] LABS: CALCIUM 7.9 MG/DL (8.5-10.1)
[2022-06-01 17:45] LABS: TOTAL PROTEIN 5.9 GM/DL (6.4-8.2)
[2022-06-01 17:47] LABS: BILIRUBIN,TOTAL 0.6 MG/DL (0.1-1.0)
[2022-06-01 17:49] LABS: CREATININE SERUM 1.32 MG/DL (0.60-1.30)
--- NOTE | 2022-06-01 17:50 | Diagnostic Imaging Report ---
EXAM: CHEST 1 VIEW, AP/PA ONLY INDICATION: Weakness COMPARISON: 04/11/2022. FINDINGS: Elevation of the left hemidiaphragm. Borderline heart size with mild pulmonary vascular congestion and prominence of the interstitium, increased compared to the prior exam. Right subclavian tunneled port CVC tip near the RA/SVC junction. No pleural effusion or pneumothorax. IMPRESSION: Borderline heart size with increasing pulmonary vascularity and prominence of interstitium suggesting a degree of interstitial edema. Infectious process cannot be entirely excluded. Dictated by: Dictated on workstation # [id number]
[2022-06-01 17:52] LABS: MAGNESIUM 1.7 MG/DL (1.6-2.4)
[2022-06-01 17:59] LABS: BASOPHILS # (AUTO) 0.1 10^3/uL (0.0-0.1); BASOPHILS % (AUTO) 1 % (0-10); EOSINOPHILS # (AUTO) 0.5 10^3/uL (0.0-0.3); EOSINOPHILS % (AUTO) 6 % (0-10); LYMPHOCYTES # (AUTO) 0.5 10^3/uL (1.0-4.0); LYMPHOCYTES % (AUTO) 6 % (12-44); MEAN CORPUSCULAR HEMOGLOBIN 28 pg (25-34); MEAN CORPUSCULAR HGB CONC 32 g/dL (32-36); MEAN CORPUSCULAR VOLUME 88 fL (80-99); MEAN PLATELET VOLUME 11.7 fL (9.0-12.2); MONOCYTES % (AUTO) 12 % (0-12); NEUTROPHILS # (AUTO) 5.8 10^3/uL (1.8-7.8); NEUTROPHILS % (AUTO) 72 % (42-75); PLATELET COUNT 335 10^3/uL (130-400)
[2022-06-01 18:03] LABS: HEMATOCRIT 18 % (40-54); HEMOGLOBIN 5.7 g/dL (13.3-17.7)
[2022-06-01 18:05] LABS: INR 1.4 (0.8-1.4); PROTHROMBIN TIME PATIENT 18.1 SEC (12.2-14.7)
--- NOTE | 2022-06-01 18:10 | ED General ---
General Chief Complaint: Cardiac/General Problems Stated Complaint: WEAKNESS Nursing Triage Note: PT TO TRIAGE BY WC WITH WITH COMPLAINT OF WEAKNESS, AND NOT FEELING WELL. DENIES SICK CONTACTS, FEVER, SOA. Source of Information: Patient, Family Exam Limitations: No Limitations History of Present Illness Date Seen by Provider: Jun 01, 2022 Time Seen by Provider: 17:21 Initial Comments 76-year-old male presents with his with complaints of generalized weakness over the last 2 days. reports patient has been lying in bed for the last 2 days and has had no energy. She states that when this occurs he usually needs a blood transfusion. States he last had a blood transfusion at the [facility] on either last Monday or last Monday. states that patient usually goes to the [facility] for his transfusions, but they were closed for the holidays. Patient has myodysplastic syndrome. Patient's only complaint is that he is tired, and he has intermittent palpitations. Patient denies chest pain, shortness of air, dizziness. states he had pain in his leg earlier which is chronic, states he took hydrocodone at 2:30 PM. Allergies and Home Medications Allergies Coded Allergies: Sulfa (Sulfonamide Antibiotics) (Verified Allergy, Intermediate, RASH, TROUBLE BREATHING, 03/14/22) Tetanus Vaccines and Toxoid (Verified Allergy, Unknown, ARMS SWELLS , 03/14/22) cephalexin (Verified Allergy, Unknown, RASH, 03/14/22) Patient Home Medication List Home Medication List Reviewed: Yes Acetaminophen (Tylenol Extra Strength) 500 Mg Tablet, 500 MG PO Q8H PRN for PAIN-MILD (1-4), (Reported) Entered as Reported by: BRUCE MENCHACA on 12/27/21 1333 Cholestyramine (with Sugar) (Cholestyramine Packet) 4 Gram Powd.pack, 4 GM PO DAILY, (Reported) Entered as Reported by: BRUCE MENCHACA on 12/27/21 1337 Finasteride (Finasteride) 5 Mg Tablet, 5 MG PO DAILY, (Reported) Entered as Reported by: JOCELYN REVELES on 03/15/19 1229 Lenalidomide (Revlimid) 2.5 Mg Capsule, 5 MG PO HS, (Reported) Entered as Reported by: BRUCE MENCHACA on 12/27/21 1335 Prednisone (Prednisone) 10 Mg Tab, UD, (Reported) Entered as Reported by: SAMIR Mast NGUYEN on 03/14/22 0957 Tamsulosin HCl (Flomax) 0.4 Mg Cap, 0.8 MG PO DAILY, (Reported) Entered as Reported by: JOCELYN REVELES on 03/15/19 1229 Review of Systems Review of Systems Constitutional: see HPI Past Mnwdpds-Dlqnsh-Wrcvye Hx Patient Social History Tobacco Use?: Yes Tobacco type used: Cigarettes Smoking Status: Current Everyday Smoker Use of E-Cig and/or Vaping dev: No Substance use?: No Alcohol Use?: No Pt feels they are or have been: No Immunizations Up To Date Tetanus Booster (TDap): Unknown PED Vaccines UTD: Yes First/Initial COVID19 Vaccinat: 2020 Second COVID19 Vaccination Brendon: 2020 Third COVID19 Vaccination Date: 2020 Seasonal Allergies Seasonal Allergies: No Past Medical History Surgery/Hospitalization HX: PAD, ANEMIA, TYPE OF LEUKEMIA, UTI, PVD, RBK AMP 2018 Surgeries: Yes (RIGHT BKA 03/2019;PICC LINE IN R ARM OF 06/30/19;LOOP RECORDER 04/15/20) Amputation, Cardiac, Orthopedic, Tonsillectomy Respiratory: Yes (RESPIRATORY FAILURE WITH SIRS AND PNEUMONIA 04/2019; PNEUMONIA 05/2019) Asthma, Pneumonia, COPD Currently Using CPAP: No Currently Using BIPAP: No Cardiac: Yes (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;LOOP RECORDER) Atrial Fibrillation, High Cholesterol, Hypertension, Peripheral Vascular Neurological: Yes (POSSIBLY PER ) Dementia Genitourinary: Yes (HX OF HEMATURIA; HX OF RENAL FAILURE WITH SIRS/PNEUMONIA 04/2019) Benign Prostatic Hyperpl, Bladder Infection, Renal Failure Gastrointestinal: Yes (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) Chronic Constipation Musculoskeletal: Yes (RIGHT BKA; GENERALIZED WEAKNESS) Amputee, Arthritis Endocrine: No HEENT: Yes Hearing Impairment: Hard of Hearing, Bilateral Hearing Aide Cancer: Yes (MYELODYSPLASTIC DISORDER WITH LEUKOPENIA, ANEMIA AND THROMBOCYTOSIS) Did You Recieve Any Treatments: Yes What Type of Treatment Did You: Chemotherapy Psychosocial: Yes (SLEEPS 19-20 HOURS) Integumentary: Yes (LEFT ANKLE /LEFT HEEL WOUND; PYODERMA GANGRENOSUM) Blood Disorders: Yes (refractory anemia /ring sideroblasts W/ thrombocytosis;MYELODYSPLASIA) Adverse Reaction/Blood Tranf: No Family Medical History No Pertinent Family Hx, Hypertension MYELODYSPLASTIC SYNDROME /MYELOPROLIFERATIVE DISORDER WAS DX 2017 IN [place]. HAD BEEN ON HYDROXYUREA, THIS WAS DC'D AND PT HAS BEEN ON ANAGRELIDE SINCE 03/2019. RECEIVES WEEKLY BLOOD TRANSFUSIONS--EVERY MONDAY ADDITIONAL PMH : -NSTEMI 04/23/19. -MULTIPLE EPISODES OF RESPIRATORY FAILURE Physical Exam Vital Signs Vital Signs - First Documented 06/01/22 06/01/22 16:54 19:55 Temp 37.1 Pulse 59 Resp 16 B/P (MAP) 107/61 (76) Pulse Ox 97 O2 Delivery Room Air Capillary Refill : Less Than 3 Seconds Height, Weight, BMI Height: 6'1.00" Weight: 196lbs. oz. 88.628282nc; 21.00 BMI Method:Stated General Appearance: No Apparent Distress, WD/WN HEENT: Pale Conjunctivae (R) Neck: Normal Inspection, Supple Respiratory: Lungs Clear, Normal Breath Sounds, No Accessory Muscle Use, No Respiratory Distress Cardiovascular: No Edema, No Gallop, No JVD, No Murmur Neurologic/Psychiatric: Alert, Oriented x3, Normal Mood/Affect Skin: Warm/Dry, Pallor Progress/Results/Core Measures Suspected Sepsis SIRS Temperature: Pulse: 59 Respiratory Rate: 16 Laboratory Tests 06/01/22 17:20: White Blood Count 8.0 Blood Pressure 107 /61 Mean: 76 Laboratory Tests 06/01/22 17:20: Creatinine 1.32H, INR Comment 1.4, Platelet Count 335, Total Bilirubin 0.6 Results/Orders Lab Results Laboratory Tests Test 06/01/22 17:20 06/01/22 17:32 Range/Units White Blood Count 8.0 4.3-11.0 10^3/uL Red Blood Count 2.02 L 4.30-5.52 10^6/uL Hemoglobin 5.7 *L 13.3-17.7 g/dL Hematocrit 18 *L 40-54 % Mean Corpuscular Volume 88 80-99 fL Mean Corpuscular Hemoglobin 28 25-34 pg Mean Corpuscular Hemoglobin Concent 32 32-36 g/dL Red Cell Distribution Width 15.8 H 10.0-14.5 % Platelet Count 335 130-400 10^3/uL Mean Platelet Volume 11.7 9.0-12.2 fL Immature Granulocyte % (Auto) 2 % Neutrophils (%) (Auto) 72 42-75 % Lymphocytes (%) (Auto) 6 L 12-44 % Monocytes (%) (Auto) 12 0-12 % Eosinophils (%) (Auto) 6 0-10 % Basophils (%) (Auto) 1 0-10 % Neutrophils # (Auto) 5.8 1.8-7.8 10^3/uL Lymphocytes # (Auto) 0.5 L 1.0-4.0 10^3/uL Monocytes # (Auto) 1.0 0.0-1.0 10^3/uL Eosinophils # (Auto) 0.5 H 0.0-0.3 10^3/uL Basophils # (Auto) 0.1 0.0-0.1 10^3/uL Immature Granulocyte # (Auto) 0.2 H 0.0-0.1 10^3/uL Prothrombin Time 18.1 H 12.2-14.7 SEC INR Comment 1.4 0.8-1.4 Activated Partial Thromboplast Time 37 H 24-35 SEC Sodium Level 140 135-145 MMOL/L Potassium Level 4.7 3.6-5.0 MMOL/L Chloride Level 110 H 98-107 MMOL/L Carbon Dioxide Level 21 21-32 MMOL/L Anion Gap 9 5-14 MMOL/L Blood Urea Nitrogen 40 H 7-18 MG/DL Creatinine 1.32 H 0.60-1.30 MG/DL Estimat Glomerular Filtration Rate 55 BUN/Creatinine Ratio 30 Glucose Level 123 H 70-105 MG/DL Calcium Level 7.9 L 8.5-10.1 MG/DL Corrected Calcium 8.3 L 8.5-10.1 MG/DL Magnesium Level 1.7 1.6-2.4 MG/DL Total Bilirubin 0.6 0.1-1.0 MG/DL Aspartate Amino Transf (AST/SGOT) 34 5-34 U/L Alanine Aminotransferase (ALT/SGPT) 144 H 0-55 U/L Alkaline Phosphatase 79 40-136 U/L Troponin I 0.045 H <0.028 NG/ML Total Protein 5.9 L 6.4-8.2 GM/DL Albumin 3.5 3.2-4.5 GM/DL Influenza Type A (RT-PCR) Not Detected Not Detecte Influenza Type B (RT-PCR) Not Detected Not Detecte SARS-CoV-2 RNA (RT-PCR) Not Detected Not Detecte My Orders Orders - CHANTALE GALLAGHER APRN Ekg Tracing (06/01/22 17:21) Covid 19 Inhouse Test (06/01/22 17:21) Influenza A And B By Pcr (06/01/22 17:21) Cbc With Automated Diff (06/01/22 17:27) Magnesium (06/01/22 17:27) Chest 1 View, Ap/Pa Only (06/01/22 17:27) Comprehensive Metabolic Panel (06/01/22 17:27) Protime With Inr (06/01/22 17:27) Partial Thromboplastin Time (06/01/22 17:27) Monitor-Rhythm Ecg Trace Only (06/01/22 17:27) Ed Iv/Invasive Line Start (06/01/22 17:27) Troponin I [place] (06/01/22 17:27) Vital Signs: Special (Order) (06/01/22 18:17) Consent-Obtain Consent For (06/01/22 18:17) Monitor S/S Transfusion Reacti (06/01/22 18:17) Ns Iv 500 Ml (Sodium Chloride 0.9%) (06/01/22 18:30) Type And Screen (06/01/22 18:17) Red Cells Leukocytes Reduced (06/01/22 18:17) Vital Signs/I&O 06/01/22 06/01/22 06/01/22 06/01/22 16:54 19:55 20:00 20:05 Temp 37.1 37.2 37.0 Pulse 59 54 52 51 Resp 16 12 14 14 B/P (MAP) 107/61 (76) 114/46 113/43 115/49 Pulse Ox 97 99 98 98 O2 Delivery Room Air Room Air Room Air Room Air 06/01/22 06/01/22 20:10 21:30 Temp 37.1 37.2 Pulse 56 53 Resp 14 17 B/P (MAP) 120/49 118/47 Pulse Ox 98 100 O2 Delivery Room Air Room Air Capillary Refill : Less Than 3 Seconds Blood Pressure Mean: 76 Progress Note #1: Time: 17:21 Progress Note Patient seen and evaluated. Work-up initiated for weakness. CBC, CMP, chest x- ray, EKG, troponin. Weakness is likely due to anemia. Progress Note #2: Time: 18:15 Progress Note Anemia noted on labs. Spoke with and patient about receiving blood transfusion in the ER. Offered admission for observation, patient declined. Patient and confirm that he usually only gets 1 unit when he gets transfused. Will discharge after transfusion. Progress Note #3: Time: 21:35 Progress Note Troponin 0.045, this is patient's baseline. Chest x-ray read: Borderline heart size with increasing pulmonary vascularity and prominence of interstitium suggesting a degree of interstitial edema. Infectious process cannot be entirely excluded. Not concerned for infectious process at this time. Patient denies any chest pain. Denies any shortness of breath. Discussed discharge with patient. Instructed patient to follow-up with cancer center for repeat labs and future infusions. Discussed return precautions ECG Initial ECG Impression Time: 17:36 Initial ECG Rate: 61 Initial ECG Rhythm: Normal Sinus Initial ECG Intervals: Normal Initial ECG Impression: Normal Initial ECG Comparisson: Unchanged Diagnostic Imaging Diagonstic Imaging: Xray Plain Films/CT/US/NM/MRI: chest Comments CHEST 1 VIEW, AP/PA ONLY EXAM: CHEST 1 VIEW, AP/PA ONLY INDICATION: Weakness COMPARISON: 04/11/2022. FINDINGS: Elevation of the left hemidiaphragm. Borderline heart size with mild pulmonary vascular congestion and prominence of the interstitium, increased compared to the prior exam. Right subclavian tunneled port CVC tip near the RA/SVC junction. No pleural effusion or pneumothorax. IMPRESSION: Borderline heart size with increasing pulmonary vascularity and prominence of interstitium suggesting a degree of interstitial edema. Infectious process cannot be entirely excluded. Dictated on workstation # [id number] Dict: 06/01/22 1745 Trans: 06/01/22 1750 CVB [id number] Interpreted by: IDRIS GARCIA MD Electronically signed by: Departure Communication (Admissions) Time/Spoke to Consulting Phy: 18:[address] Gallegos regarding patient. Dr. Gallegos states that patient usually only receives 1 unit and does not usually like to be admitted to the hospital. States she is okay with him being admitted for observation if patient with wants to. Impression Primary Impression: Anemia Disposition: 01 HOME, SELF-CARE Condition: Stable Departure-Patient Inst. Decision time for Depature: 21:38 Referrals: KEVIN GALLEGOS DO (PCP/Family) Primary Care Physician Patient Instructions: Blood Transfusion Add. Discharge Instructions: Follow-up with cancer center for your next infusion. Follow-up with primary care provider. Return for any new or concerning symptoms, shortness of breath, chest pain, dizziness All discharge instructions reviewed with patient and/or family. Voiced understanding. CHANTALE GALLAGHER APRN Jun 01, 2022 18:10
[2022-06-01] MEDS ORDERED: NS IV 500 ML 500 ML IV SCH (18:30)
[2022-06-01 19:55] VITALS: BP 114/46
[2022-06-01 20:00] VITALS: BP 113/43
[2022-06-01 20:05] VITALS: BP 115/49
[2022-06-01 20:10] VITALS: BP 120/49
[2022-06-01 21:30] VITALS: BP 118/47
[2022-06-01 21:40] VITALS: BP 107/38
== END 2022-06-01 21:40 | disposition home or self-care (01) ==
LOC: EDUNIT# 16:29 → ER 16:29
DX: D63.0 Anemia in neoplastic disease (principal); D46.9 Myelodysplastic syndrome, unspecified; F17.210 Nicotine dependence, cigarettes, uncomplicated; Z20.822 Contact with and (suspected) exposure to COVID-19
CPT/HCPCS: 71045; 80053; 83735; 84484; 85025; 85610; 85730; 86850; 86900; 86901; 86920; 87636; 93041; P9016; 36415; 93005

== ENCOUNTER → 2022-06-13 | Outpatient (CLI) | payer MEDICARE ==
[~2022-06-13] MED LIST changes: +NS IV 500 ML 500 ML IV SCH
[2022-06-13 10:40] VITALS: BP 141/59
[2022-06-13 10:59] VITALS: BP 130/56
[2022-06-13 11:14] VITALS: BP 135/57
[2022-06-13 12:49] VITALS: BP 138/52
== END ==
LOC: SDC 09:38
PROVIDERS: ATTEND Internal Medicine Hematology & Oncology
DX: D64.9 Anemia, unspecified (principal)
CPT/HCPCS: 36430; 86850; 86900; 86901; 86920; P9016

== ENCOUNTER 2022-06-28 12:21 | Emergency (ER) | payer MEDICARE ==
[~2022-06-28] VITALS: Ht 187.9 cm; Wt 81.6 kg
[~2022-06-28 12:21] MED LIST changes: -NS IV 500 ML 500 ML IV SCH
[2022-06-28] MEDS ORDERED: fentaNYL INJ 100 MCG/2 ML AMP IVP STA (13:12)
[2022-06-28] MEDS ORDERED: NS IV 500 ML 500 ML IV ONE (13:15)
[2022-06-28 13:23] LABS: BILIRUBIN,URINE NEGATIVE (NEGATIVE); CLARITY,URINE CLEAR; COLOR,URINE YELLOW; GLUCOSE, URINE (UA) NEGATIVE (NEGATIVE); KETONES,URINE NEGATIVE (NEGATIVE); LEUKOCYTE ESTERASE ,URINE NEGATIVE (NEGATIVE); NITRITE,URINE NEGATIVE (NEGATIVE); PH,URINE 5.5 (5-9); PROTEIN,URINE 2+ (NEGATIVE)
--- NOTE | 2022-06-28 13:26 | ED General ---
General Chief Complaint: General Problems/Pain Stated Complaint: EXCESSIVE FATIGUE Nursing Triage Note: PATIENT ARRIVES VIA WHEEL CHAIR TO ROOM 8 WITH ADULT DAUGHTER. PATIENT C/O ONE EPISODE OF INCONTENENCE LAST NIGHT AND LEFT FOOT PAIN. DAUGHTER STATES PATIENT WAS CONFUSED LAST NIGHT AND WAS CONCERNED. FAMILY STATE HE HAD A UNIT OF BLOOD YESTERDAY IN THE [facility] ADN SAW DR IYER AND WAS DIAGNOSED WITH GANGRENE YESTERDAY IN HIS LEFT END TOE. Source of Information: Patient, Family Exam Limitations: No Limitations History of Present Illness Date Seen by Provider: Jun 28, 2022 Time Seen by Provider: 13:01 Initial Comments Here with family member who brought the patient and due to confusion overnight with episode of incontinence. Patient is complicated in that he has blood disorder which causes high platelets. He has to have transfusions weekly. He is on medication to inhibit but this can sometimes cause his liver dysfunction and he has had that in the past. While patient was confused last night he seems to be doing better now per the daughter. Patient also has history of peripheral vascular disease requiring amputation of the right lower extremity below the knee. He is currently suffering dry gangrene of the left second digit and it seems to have spread to the third digit and the tip of the great toe. He is due to have follow-up with peripheral vascular specialist in [place] but they are awaiting that appointment. He does have increased pain to the left foot currently. He has not taken anything for the pain. Denies dysuria but did have the incontinence overnight. He was seen by Dr. Iyer a week ago for the foot. Follows with Dr. COLLINS for oncology Timing/Duration: 12 Hours, Changing Over Time Severity: Moderate Associated Systoms: No Cough, No Fever/Chills, No Nausea/Vomiting, No Shortness of Air; Weakness Allergies and Home Medications Allergies Coded Allergies: Sulfa (Sulfonamide Antibiotics) (Verified Allergy, Intermediate, RASH, TROUBLE BREATHING, 03/14/22) Tetanus Vaccines and Toxoid (Verified Allergy, Unknown, ARMS SWELLS , 03/14/22) cephalexin (Verified Allergy, Unknown, RASH, 03/14/22) Patient Home Medication List Home Medication List Reviewed: Yes Acetaminophen (Tylenol Extra Strength) 500 Mg Tablet, 500 MG PO Q8H PRN for PAIN-MILD (1-4), (Reported) Entered as Reported by: BRUCE MENCHACA on 12/27/21 1333 Cholestyramine (with Sugar) (Cholestyramine Packet) 4 Gram Powd.pack, 4 GM PO DAILY, (Reported) Entered as Reported by: BRUCE MENCHACA on 12/27/21 1337 Finasteride (Finasteride) 5 Mg Tablet, 5 MG PO DAILY, (Reported) Entered as Reported by: JOCELYN REVELES on 03/15/19 1229 Lenalidomide (Revlimid) 2.5 Mg Capsule, 5 MG PO HS, (Reported) Entered as Reported by: BRUCE MENCHACA on 12/27/21 1335 Prednisone (Prednisone) 10 Mg Tab, UD, (Reported) Entered as Reported by: SAMIR NGUYEN on 03/14/22 0957 Tamsulosin HCl (Flomax) 0.4 Mg Cap, 0.8 MG PO DAILY, (Reported) Entered as Reported by: JOCELYN REVELES on 03/15/19 1229 Review of Systems Review of Systems Constitutional: see HPI; No chills, No fever EENTM: No nose congestion, No throat pain Respiratory: No cough, No short of breath Cardiovascular: No chest pain, No edema Gastrointestinal: No nausea, No vomiting Genitourinary: No dysuria, No frequency; incontinence Musculoskeletal: muscle weakness Skin: change in color, lesions (Left second and third toe) Psychiatric/Neurological: Numbness, Weakness Past Fdhzaxp-Lmvdls-Gshzss Hx Patient Social History Tobacco Use?: Yes Tobacco type used: Cigarettes Smoking Status: Current Everyday Smoker Use of E-Cig and/or Vaping dev: No Substance use?: No Alcohol Use?: No Pt feels they are or have been: No Immunizations Up To Date Tetanus Booster (TDap): Unknown PED Vaccines UTD: Yes Influenza Vaccine Up-to-Date: No; Not Current First/Initial COVID19 Vaccinat: 2020 Second COVID19 Vaccination Brendon: 2020 Third COVID19 Vaccination Date: 2020 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: [employer] Seasonal Allergies Seasonal Allergies: No Past Medical History Surgery/Hospitalization HX: PAD, ANEMIA, TYPE OF LEUKEMIA, UTI, PVD, RARS-T RBK AMP 2018 Surgeries: Yes (RIGHT BKA 03/2019;PICC LINE IN R ARM OF 06/30/19;LOOP RECORDER 04/15/20) Amputation, Cardiac, Orthopedic, Tonsillectomy Respiratory: Yes (RESPIRATORY FAILURE WITH SIRS AND PNEUMONIA 04/2019; PNEUMONIA 05/2019) Asthma, Pneumonia, COPD Currently Using CPAP: No Currently Using BIPAP: No Cardiac: Yes (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;LOOP RECORDER) Atrial Fibrillation, High Cholesterol, Hypertension, Peripheral Vascular Neurological: Yes (POSSIBLY PER ) Dementia Genitourinary: Yes (HX OF HEMATURIA; HX OF RENAL FAILURE WITH SIRS/PNEUMONIA 04/2019) Benign Prostatic Hyperpl, Bladder Infection, Renal Failure Gastrointestinal: Yes (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) Chronic Constipation Musculoskeletal: Yes (RIGHT BKA; GENERALIZED WEAKNESS) Amputee, Arthritis Endocrine: No HEENT: Yes Hearing Impairment: Hard of Hearing, Bilateral Hearing Aide Cancer: Yes (MYELODYSPLASTIC DISORDER WITH LEUKOPENIA, ANEMIA AND THROMBOCYTOSIS) Did You Recieve Any Treatments: Yes What Type of Treatment Did You: Chemotherapy Psychosocial: Yes (SLEEPS 19-20 HOURS) Integumentary: Yes (LEFT ANKLE /LEFT HEEL WOUND; PYODERMA GANGRENOSUM) Blood Disorders: Yes (refractory anemia /ring sideroblasts W/ thrombocytosis;MYELODYSPLASIA) Adverse Reaction/Blood Tranf: No Family Medical History Reviewed Nursing Family Hx No Pertinent Family Hx, Hypertension MYELODYSPLASTIC SYNDROME /MYELOPROLIFERATIVE DISORDER WAS DX 2016 IN [place]. HAD BEEN ON HYDROXYUREA, THIS WAS DC'D AND PT HAS BEEN ON ANAGRELIDE SINCE 03/2019. RECEIVES WEEKLY BLOOD TRANSFUSIONS--EVERY MONDAY ADDITIONAL PMH : -NSTEMI 04/23/19. -MULTIPLE EPISODES OF RESPIRATORY FAILURE Physical Exam Vital Signs Vital Signs - First Documented 06/28/22 12:35 Temp 36.7 Pulse 69 Resp 18 B/P (MAP) 116/56 (76) Pulse Ox 98 O2 Delivery Room Air Capillary Refill : Less Than 3 Seconds Height, Weight, BMI Height: 6'1.00" Weight: 196lbs. oz. 88.204711gm; 23.00 BMI Method:Stated General Appearance: No Apparent Distress, Thin HEENT: PERRL/EOMI, Pharynx Normal Neck: Non Tender, Supple Respiratory: Lungs Clear, Normal Breath Sounds Cardiovascular: Regular Rate, Rhythm, No Murmur Gastrointestinal: Non Tender, Soft Back: Normal Inspection, No CVA Tenderness, No Vertebral Tenderness Extremity: Normal Range of Motion, Other (Left tip of great toe slightly glued with peripheral blurring of second and third toe to MTP area both dorsal and plantar aspects. Does have some surrounding erythema just proximal to color change but does not extend significantly up the foot.) Neurologic/Psychiatric: Alert, Oriented x3, Other (Hard of hearing) Skin: Warm/Dry, Other (See foot description as above.) Progress/Results/Core Measures Suspected Sepsis SIRS Temperature: Pulse: 69 Respiratory Rate: 18 Laboratory Tests 06/28/22 13:30: White Blood Count 6.3 Blood Pressure 116 /56 Mean: 76 Laboratory Tests 06/28/22 13:30: Creatinine 1.33H, Platelet Count 514H, Total Bilirubin 0.9 Results/Orders Lab Results Laboratory Tests Test 06/28/22 13:17 06/28/22 13:30 Range/Units Urine Color YELLOW Urine Clarity CLEAR Urine pH 5.5 5-9 Urine Specific [place] 1.020 1.016-1.022 Urine Protein 2+ H NEGATIVE Urine Glucose (UA) NEGATIVE NEGATIVE Urine Ketones NEGATIVE NEGATIVE Urine Nitrite NEGATIVE NEGATIVE Urine Bilirubin NEGATIVE NEGATIVE Urine Urobilinogen 0.2 < = 1.0 MG/DL Urine Leukocyte Esterase NEGATIVE NEGATIVE Urine RBC (Auto) NEGATIVE NEGATIVE Urine RBC NONE /HPF Urine WBC NONE /HPF Urine Squamous Epithelial Cells 0-2 /HPF Urine Crystals NONE /LPF Urine Bacteria NEGATIVE /HPF Urine Casts PRESENT /LPF Urine Hyaline Casts 0-2 H /LPF Urine Mucus NEGATIVE /LPF Urine Culture Indicated NO White Blood Count 6.3 4.3-11.0 10^3/uL Red Blood Count 2.73 L 4.30-5.52 10^6/uL Hemoglobin 7.9 L 13.3-17.7 g/dL Hematocrit 24 L 40-54 % Mean Corpuscular Volume 88 80-99 fL Mean Corpuscular Hemoglobin 29 25-34 pg Mean Corpuscular Hemoglobin Concent 33 32-36 g/dL Red Cell Distribution Width 14.9 H 10.0-14.5 % Platelet Count 514 H 130-400 10^3/uL Mean Platelet Volume 10.9 9.0-12.2 fL Immature Granulocyte % (Auto) 2 % Neutrophils (%) (Auto) 67 42-75 % Lymphocytes (%) (Auto) 13 12-44 % Monocytes (%) (Auto) 9 0-12 % Eosinophils (%) (Auto) 6 0-10 % Basophils (%) (Auto) 3 0-10 % Neutrophils # (Auto) 4.2 1.8-7.8 10^3/uL Lymphocytes # (Auto) 0.8 L 1.0-4.0 10^3/uL Monocytes # (Auto) 0.6 0.0-1.0 10^3/uL Eosinophils # (Auto) 0.4 H 0.0-0.3 10^3/uL Basophils # (Auto) 0.2 H 0.0-0.1 10^3/uL Immature Granulocyte # (Auto) 0.1 0.0-0.1 10^3/uL Neutrophils % (Manual) 59 % Lymphocytes % (Manual) 7 % Monocytes % (Manual) 4 % Eosinophils % (Manual) 7 % Basophils % (Manual) 2 % Band Neutrophils 18 % Reactive Lymphocytes 3 % Blood Morphology Comment NORMAL Sodium Level 139 135-145 MMOL/L Potassium Level 3.4 L 3.6-5.0 MMOL/L Chloride Level 102 98-107 MMOL/L Carbon Dioxide Level 26 21-32 MMOL/L Anion Gap 11 5-14 MMOL/L Blood Urea Nitrogen 36 H 7-18 MG/DL Creatinine 1.33 H 0.60-1.30 MG/DL Estimat Glomerular Filtration Rate 55 BUN/Creatinine Ratio 27 Glucose Level 78 70-105 MG/DL Calcium Level 7.9 L 8.5-10.1 MG/DL Corrected Calcium 8.3 L 8.5-10.1 MG/DL Total Bilirubin 0.9 0.1-1.0 MG/DL Aspartate Amino Transf (AST/SGOT) 50 H 5-34 U/L Alanine Aminotransferase (ALT/SGPT) 154 H 0-55 U/L Alkaline Phosphatase 96 40-136 U/L Ammonia 32 11-32 UMOL/L C-Reactive Protein High Sensitivity 1.65 H 0.00-0.50 MG/DL Total Protein 6.1 L 6.4-8.2 GM/DL Albumin 3.5 3.2-4.5 GM/DL My Orders Orders - VILMA MOSLEY MD Ammonia (06/28/22 13:12) Cbc With Automated Diff (06/28/22 13:12) Comprehensive Metabolic Panel (06/28/22 13:12) Hs C Reactive Protein (06/28/22 13:12) Ua Culture If Indicated (06/28/22 13:12) Ed Iv/Invasive Line Start (06/28/22 13:12) Fentanyl Inj (Sublimaze Injection) (06/28/22 13:12) Ns Iv 500 Ml (Sodium Chloride 0.9%) (06/28/22 13:15) Manual Differential (06/28/22 13:30) Medications Given in ED Current Medications Medications Dose Ordered Sig/[place] Route Start Time Stop Time Status Last Admin Dose Admin Sodium Chloride 500 ml @ 0 mls/hr Q0M ONCE IV 06/28/22 13:15 06/28/22 13:16 DC 06/28/22 13:39 500 MLS/HR Vital Signs/I&O 06/28/22 12:35 Temp 36.7 Pulse 69 Resp 18 B/P (MAP) 116/56 (76) Pulse Ox 98 O2 Delivery Room Air Capillary Refill : Less Than 3 Seconds Blood Pressure Mean: 76 Progress Note : Progress Note Seen and evaluated. IV via port access. Normal saline 500 mL bolus ordered. CBC, CMP and CRP ordered. We will also check UA due to incontinence. We will check ammonia due to concerns of liver failure in setting of altered mental status. Monitor patient. Differential diagnosis includes dehydration, UTI, elevated ammonia, electrolyte abnormality, liver dysfunction, infectious sequela. 1500: Labs reviewed and show UA without findings of UTI but slight concentration with specific gravity 1.020. CBC shows white count of 6.3 and hemoglobin of 6.9 with platelets of 514. CMP reviewed and shows essentially normal electrolytes with creatinine of 1.33. LFTs are slightly elevated with AST of 50 and ALT of 154. CRP is slightly elevated at 1.65. Overall he is feeling better after fluid administration. Patient and family both agree that he is okay to go home and they are comfortable going home with follow-up with her doctor. Discharged home with return precautions. Patient family verbalized understanding instructions and agreement with plan. Departure Impression Primary Impression: Anemia Qualified Codes: D64.9 - Anemia, unspecified Additional Impression: Dehydration Disposition: 01 HOME, SELF-CARE Condition: Stable Departure-Patient Inst. Decision time for Depature: 15:06 Referrals: KEVIN BURCH DO (PCP/Family) Primary Care Physician Patient Instructions: Dehydration, Adult (DC) Add. Discharge Instructions: All discharge instructions reviewed with patient and/or family. Voiced understanding. Continue follow-up plan and outpatient therapy as instructed by oncology team for your blood condition. Return for worse pain, fever, weakness, vomiting or other concerns as needed. Carefully monitor the foot for changes and increasing redness including redness that extends up the foot or over the ankle. Return if this occurs. Drink plenty of fluids by taking small sips frequently and try to eat a normal diet. VILMA MOSLEY MD Jun 28, 2022 13:26
[2022-06-28 13:43] LABS: BASOPHILS # (AUTO) 0.2 10^3/uL (0.0-0.1); BASOPHILS % (AUTO) 3 % (0-10); EOSINOPHILS # (AUTO) 0.4 10^3/uL (0.0-0.3); EOSINOPHILS % (AUTO) 6 % (0-10); HEMATOCRIT 24 % (40-54); HEMOGLOBIN 7.9 g/dL (13.3-17.7); LYMPHOCYTES # (AUTO) 0.8 10^3/uL (1.0-4.0); LYMPHOCYTES % (AUTO) 13 % (12-44); MEAN CORPUSCULAR HEMOGLOBIN 29 pg (25-34); MEAN CORPUSCULAR HGB CONC 33 g/dL (32-36); MEAN CORPUSCULAR VOLUME 88 fL (80-99); MEAN PLATELET VOLUME 10.9 fL (9.0-12.2); MONOCYTES # (AUTO) 0.6 10^3/uL (0.0-1.0); MONOCYTES % (AUTO) 9 % (0-12); NEUTROPHILS # (AUTO) 4.2 10^3/uL (1.8-7.8); NEUTROPHILS % (AUTO) 67 % (42-75); PLATELET COUNT 514 10^3/uL (130-400); WHITE BLOOD COUNT 6.3 10^3/uL (4.3-11.0)
[2022-06-28 13:43] LABS: BACTERIA,URINE NEGATIVE /HPF; HYALINE CASTS, URINE 0-2 /LPF; SQUAMOUS EPITHELIAL CELL,UR 0-2 /HPF
[2022-06-28 13:59] LABS: ALBUMIN 3.5 GM/DL (3.2-4.5); POTASSIUM 3.4 MMOL/L (3.6-5.0)
[2022-06-28 14:00] LABS: CALCIUM 7.9 MG/DL (8.5-10.1)
[2022-06-28 14:02] LABS: TOTAL PROTEIN 6.1 GM/DL (6.4-8.2)
[2022-06-28 14:03] LABS: BILIRUBIN,TOTAL 0.9 MG/DL (0.1-1.0)
[2022-06-28 14:05] LABS: CREATININE SERUM 1.33 MG/DL (0.60-1.30)
[2022-06-28 14:17] LABS: BAND NEUTROPHILS 18 %; BASOPHILS % (MANUAL) 2 %; EOSINOPHILS % (MANUAL) 7 %; LYMPHOCYTES % (MANUAL) 7 %; MONOCYTES % (MANUAL) 4 %; NEUTROPHILS % (MANUAL) 59 %; RBC MORPH NORMAL; REACTIVE LYMPHOCYTES 3 %
[2022-06-28 15:25] VITALS: BP 102/56
== END 2022-06-28 15:25 | disposition home or self-care (01) ==
LOC: EDUNIT# 12:21 → ER 12:24
DX: D64.9 Anemia, unspecified (principal); E86.0 Dehydration; R74.01 Elevation of levels of liver transaminase levels; R79.82 Elevated C-reactive protein (CRP); L53.9 Erythematous condition, unspecified; F17.210 Nicotine dependence, cigarettes, uncomplicated; Z28.311 Partially vaccinated for COVID-19
CPT/HCPCS: 36415; 80053; 81000; 82140; 85007; 85027; 86141; 99282

== ENCOUNTER 2022-07-04 08:39 | Outpatient (RCR) | payer MEDICARE, OTHER ==
[2021-10-20 16:15] VITALS: BP 147/62
[2022-06-07 10:26] LABS: BASOPHILS # (AUTO) 0.1 10^3/uL (0.0-0.1); BASOPHILS % (AUTO) 1 % (0-10); EOSINOPHILS # (AUTO) 0.3 10^3/uL (0.0-0.3); EOSINOPHILS % (AUTO) 5 % (0-10); LYMPHOCYTES # (AUTO) 0.6 10^3/uL (1.0-4.0); LYMPHOCYTES % (AUTO) 10 % (12-44); MEAN CORPUSCULAR HEMOGLOBIN 28 pg (25-34); MEAN CORPUSCULAR HGB CONC 32 g/dL (32-36); MEAN CORPUSCULAR VOLUME 87 fL (80-99); MEAN PLATELET VOLUME 11.7 fL (9.0-12.2); MONOCYTES # (AUTO) 0.8 10^3/uL (0.0-1.0); MONOCYTES % (AUTO) 14 % (0-12); NEUTROPHILS % (AUTO) 68 % (42-75); PLATELET COUNT 360 10^3/uL (130-400); WHITE BLOOD COUNT 5.9 10^3/uL (4.3-11.0)
[2022-06-07 10:29] LABS: HEMOGLOBIN 6.3 g/dL (13.3-17.7)
[2022-06-07 10:30] LABS: HEMATOCRIT 20 % (40-54)
[2022-06-07 10:56] LABS: ALBUMIN 3.2 GM/DL (3.2-4.5); BILIRUBIN,TOTAL 0.4 MG/DL (0.1-1.0); CALCIUM 7.2 MG/DL (8.5-10.1); CREATININE SERUM 1.03 MG/DL (0.60-1.30); POTASSIUM 3.6 MMOL/L (3.6-5.0); TOTAL PROTEIN 5.3 GM/DL (6.4-8.2)
[2022-06-13 08:58] LABS: BASOPHILS # (AUTO) 0.1 10^3/uL (0.0-0.1); BASOPHILS % (AUTO) 2 % (0-10); EOSINOPHILS # (AUTO) 0.3 10^3/uL (0.0-0.3); EOSINOPHILS % (AUTO) 5 % (0-10); HEMATOCRIT 21 % (40-54); LYMPHOCYTES # (AUTO) 0.6 10^3/uL (1.0-4.0); LYMPHOCYTES % (AUTO) 12 % (12-44); MEAN CORPUSCULAR HEMOGLOBIN 28 pg (25-34); MEAN CORPUSCULAR HGB CONC 32 g/dL (32-36); MEAN CORPUSCULAR VOLUME 89 fL (80-99); MEAN PLATELET VOLUME 11.6 fL (9.0-12.2); MONOCYTES # (AUTO) 0.6 10^3/uL (0.0-1.0); MONOCYTES % (AUTO) 12 % (0-12); NEUTROPHILS # (AUTO) 3.4 10^3/uL (1.8-7.8); NEUTROPHILS % (AUTO) 66 % (42-75); PLATELET COUNT 368 10^3/uL (130-400); WHITE BLOOD COUNT 5.2 10^3/uL (4.3-11.0)
[2022-06-13 09:02] LABS: HEMOGLOBIN 6.6 g/dL (13.3-17.7)
[2022-06-13 09:23] LABS: ALBUMIN 3.7 GM/DL (3.2-4.5); BILIRUBIN,TOTAL 0.5 MG/DL (0.1-1.0); CREATININE SERUM 1.22 MG/DL (0.60-1.30); POTASSIUM 3.6 MMOL/L (3.6-5.0)
[2022-06-20 10:00] LABS: BASOPHILS # (AUTO) 0.1 10^3/uL (0.0-0.1); BASOPHILS % (AUTO) 3 % (0-10); EOSINOPHILS # (AUTO) 0.2 10^3/uL (0.0-0.3); EOSINOPHILS % (AUTO) 4 % (0-10); LYMPHOCYTES # (AUTO) 0.6 10^3/uL (1.0-4.0); LYMPHOCYTES % (AUTO) 12 % (12-44); MEAN CORPUSCULAR HEMOGLOBIN 29 pg (25-34); MEAN CORPUSCULAR HGB CONC 33 g/dL (32-36); MEAN CORPUSCULAR VOLUME 88 fL (80-99); MEAN PLATELET VOLUME 11.4 fL (9.0-12.2); MONOCYTES # (AUTO) 0.8 10^3/uL (0.0-1.0); MONOCYTES % (AUTO) 16 % (0-12); NEUTROPHILS % (AUTO) 63 % (42-75); PLATELET COUNT 343 10^3/uL (130-400); WHITE BLOOD COUNT 4.7 10^3/uL (4.3-11.0)
[2022-06-20 10:04] LABS: HEMATOCRIT 19 % (40-54); HEMOGLOBIN 6.3 g/dL (13.3-17.7)
[2022-06-20 10:20] LABS: ALBUMIN 3.6 GM/DL (3.2-4.5); BILIRUBIN,TOTAL 0.6 MG/DL (0.1-1.0); CALCIUM 7.7 MG/DL (8.5-10.1); CREATININE SERUM 1.06 MG/DL (0.60-1.30); POTASSIUM 3.5 MMOL/L (3.6-5.0); TOTAL PROTEIN 5.8 GM/DL (6.4-8.2)
[2022-06-27 09:04] LABS: BASOPHILS # (AUTO) 0.1 10^3/uL (0.0-0.1); BASOPHILS % (AUTO) 2 % (0-10); EOSINOPHILS # (AUTO) 0.2 10^3/uL (0.0-0.3); EOSINOPHILS % (AUTO) 3 % (0-10); LYMPHOCYTES # (AUTO) 0.8 10^3/uL (1.0-4.0); LYMPHOCYTES % (AUTO) 12 % (12-44); MEAN CORPUSCULAR HEMOGLOBIN 29 pg (25-34); MEAN CORPUSCULAR HGB CONC 33 g/dL (32-36); MEAN CORPUSCULAR VOLUME 88 fL (80-99); MEAN PLATELET VOLUME 10.9 fL (9.0-12.2); MONOCYTES # (AUTO) 0.9 10^3/uL (0.0-1.0); MONOCYTES % (AUTO) 12 % (0-12); NEUTROPHILS # (AUTO) 4.8 10^3/uL (1.8-7.8); NEUTROPHILS % (AUTO) 69 % (42-75); PLATELET COUNT 627 10^3/uL (130-400)
[2022-06-27 09:06] LABS: HEMOGLOBIN 6.6 g/dL (13.3-17.7)
[2022-06-27 09:07] LABS: HEMATOCRIT 20 % (40-54)
[2022-06-27 09:26] LABS: ALBUMIN 3.7 GM/DL (3.2-4.5); BILIRUBIN,TOTAL 0.6 MG/DL (0.1-1.0); CALCIUM 8.1 MG/DL (8.5-10.1); CREATININE SERUM 1.03 MG/DL (0.60-1.30); POTASSIUM 3.7 MMOL/L (3.6-5.0); TOTAL PROTEIN 6.2 GM/DL (6.4-8.2)
[~2022-07-04 08:39] MED LIST changes: +NS IV 500 ML 500 ML IV SCH; +NS IV 500 ML 500 ML ONE
[2022-07-04 09:13] LABS: BASOPHILS # (AUTO) 0.1 10^3/uL (0.0-0.1); BASOPHILS % (AUTO) 2 % (0-10); EOSINOPHILS # (AUTO) 0.3 10^3/uL (0.0-0.3); EOSINOPHILS % (AUTO) 5 % (0-10); LYMPHOCYTES # (AUTO) 0.6 10^3/uL (1.0-4.0); LYMPHOCYTES % (AUTO) 9 % (12-44); MEAN CORPUSCULAR HEMOGLOBIN 29 pg (25-34); MEAN CORPUSCULAR HGB CONC 32 g/dL (32-36); MEAN CORPUSCULAR VOLUME 89 fL (80-99); MEAN PLATELET VOLUME 11.4 fL (9.0-12.2); MONOCYTES # (AUTO) 0.8 10^3/uL (0.0-1.0); MONOCYTES % (AUTO) 11 % (0-12); NEUTROPHILS % (AUTO) 71 % (42-75); PLATELET COUNT 503 10^3/uL (130-400)
[2022-07-04 09:15] LABS: HEMATOCRIT 20 % (40-54); HEMOGLOBIN 6.5 g/dL (13.3-17.7)
[2022-07-04] MEDS ORDERED: NS IV 500 ML 500 ML ONE (09:15)
[2022-07-04 09:33] LABS: ALBUMIN 3.4 GM/DL (3.2-4.5); BILIRUBIN,TOTAL 0.7 MG/DL (0.1-1.0); CALCIUM 7.8 MG/DL (8.5-10.1); CREATININE SERUM 1.09 MG/DL (0.60-1.30); POTASSIUM 3.8 MMOL/L (3.6-5.0); TOTAL PROTEIN 5.9 GM/DL (6.4-8.2)
[2022-07-04] MEDS ORDERED: NS IV 500 ML 500 ML IV SCH (10:00)
== END 2022-07-05 | disposition home or self-care (01) ==
LOC: ONC 08:39
PROVIDERS: ATTEND Internal Medicine Hematology & Oncology
DX: Z45.2 Encounter for adjustment and management of vascular access device (principal); D46.9 Myelodysplastic syndrome, unspecified; D47.3 Essential (hemorrhagic) thrombocythemia; E78.2 Mixed hyperlipidemia; I10 Essential (primary) hypertension; K21.9 Gastro-esophageal reflux disease without esophagitis
CPT/HCPCS: 36430; 80053; 85025; 86850; 86900; 86901; 86920; P9016; 36591

== ENCOUNTER 2022-07-11 08:29 | Outpatient (RCR) | payer MEDICARE ==
[2021-10-20 16:15] VITALS: BP 147/62
[~2022-07-11 08:29] MED LIST changes: -NS IV 500 ML 500 ML IV SCH; -NS IV 500 ML 500 ML ONE
[2022-07-11 09:08] LABS: BASOPHILS # (AUTO) 0.1 10^3/uL (0.0-0.1); BASOPHILS % (AUTO) 1 % (0-10); EOSINOPHILS # (AUTO) 0.4 10^3/uL (0.0-0.3); EOSINOPHILS % (AUTO) 3 % (0-10); HEMATOCRIT 21 % (40-54); LYMPHOCYTES # (AUTO) 0.6 10^3/uL (1.0-4.0); LYMPHOCYTES % (AUTO) 6 % (12-44); MEAN CORPUSCULAR HEMOGLOBIN 28 pg (25-34); MEAN CORPUSCULAR HGB CONC 32 g/dL (32-36); MEAN CORPUSCULAR VOLUME 88 fL (80-99); MEAN PLATELET VOLUME 11.1 fL (9.0-12.2); MONOCYTES # (AUTO) 1.1 10^3/uL (0.0-1.0); MONOCYTES % (AUTO) 10 % (0-12); NEUTROPHILS # (AUTO) 8.8 10^3/uL (1.8-7.8); NEUTROPHILS % (AUTO) 79 % (42-75); PLATELET COUNT 695 10^3/uL (130-400); WHITE BLOOD COUNT 11.1 10^3/uL (4.3-11.0)
[2022-07-11 09:10] LABS: HEMOGLOBIN 6.6 g/dL (13.3-17.7)
[2022-07-13] MEDS ORDERED: ACET-2267 PO (10:50)
[2022-07-13] MEDS ORDERED: PRD20T PO (10:50)
[2022-07-13] MEDS ORDERED: LENA10CA PO (10:50)
[2022-07-13] MEDS ORDERED: OMEP20CA18 PO (10:50)
[2022-07-13] MEDS ORDERED: TMSL.4C PO (10:50)
[2022-07-13] MEDS ORDERED: DONE5TAB30 PO (10:50)
[2022-07-13] MEDS ORDERED: GABA300C PO ×2 (10:50)
== END 2022-07-14 | disposition home or self-care (01) ==
LOC: ONC 08:29
PROVIDERS: ATTEND Internal Medicine Hematology & Oncology
DX: D46.9 Myelodysplastic syndrome, unspecified (principal); D47.3 Essential (hemorrhagic) thrombocythemia; E78.2 Mixed hyperlipidemia; I10 Essential (primary) hypertension; K21.9 Gastro-esophageal reflux disease without esophagitis; I96 Gangrene, not elsewhere classified; R00.0 Tachycardia, unspecified
CPT/HCPCS: 85025

== ENCOUNTER 2022-07-12 10:21 | Inpatient (IN) | payer MEDICARE ==
[2022-07-12] VITALS (8 sets, daily range): BP systolic 107–137; BP diastolic 38–72
[~2022-07-12] VITALS: Ht 258.5 cm; Wt 82.0 kg
[2022-07-12] MEDS ORDERED: LIDOCAINE UROJET 2% GEL 10 ML PKG ONE (10:44)
[2022-07-12] MEDS ORDERED: CEFEPIME INJECTION 1,000 MG in NS (IVPB) 50 ML IV ONE (10:45)
[2022-07-12] MEDS ORDERED: NS IV 1000 ML 1,000 ML IV SCH (10:45)
[2022-07-12] MEDS ORDERED: VANCOMYCIN INJECTION 1,000 MG in NS (IVPB) 250 ML IV ONE (10:45)
[2022-07-12] MEDS ORDERED: LIDOCAINE UROJET 2% GEL 10 ML PKG TOP ONE (10:45)
[2022-07-12] MEDS ORDERED: ACETAMINOPHEN 650 MG SUPP (TYLENOL) PR ONE (10:45)
--- NOTE | 2022-07-12 10:50 | ED General ---
General Chief Complaint: Fever-Adult/Adol Stated Complaint: ALTERED MENTAL STATUS Nursing Triage Note: PT ARRIVED PER EMS W FEVER, ALTERED MENTAL STATUS. PT HAS PORT ACCESSED R CHEST WALL BY EMS, PT HAS NS INFUSING. PT HAS HX CA, WAS SUPPOSED TO GET BLOOD TRANSFUSION YESTERDAY BECAUSE OF STAFFING SHORTAGE. PT HAS BLOCKAGES IN L LOWER EXT. PT HAS WOUNDS NOTED ON L FOOT, DARK COLOR WHOLE BOTTOM OF FOOT, GREATER THAN 3 SEC CAP REFILL ON L FOOT. DENIES COUGH, N/V/D. PT HAS BEEN INC OF URINE TODAY. PT ALSO HAS OPEN WOUND ON STUMP. Source of Information: Patient, EMS, Family Exam Limitations: Other (medical condition) History of Present Illness Date Seen by Provider: Jul 12, 2022 Time Seen by Provider: 10:26 Initial Comments 76yoM with PMH of myelodysplastic syndrome (followed by Dr. Fry, chronic anemia with weekly blood transfusions), pAfib on Xarelto, PAD with RLE BKA (performed at [facility] in 2016) coming in via EMS from home due to altered mental status and fever. Started acting more abnormal last night, family noticed fever this morning and less responsive for them at that time. Not answering questions appropriately for them. Typically he is able [facility] and get around the house. He has been unable to do that, just laying in the bed, urinating on himself. He does have the right lower extremity below- knee amputation which noticed some color changes to the distal end of it within the past couple days. 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 Sawyer. states that this has been worsening over the past several weeks as well. They are trying to get him into a vascular specialist in [place], but he has not seen them as of yet. Denies any cough, vomiting, diarrhea, dysuria, chest pain, or any other concerns. He does have chronic pain in his extremities which he is on chronic opioids, but this has been unchanged. Further elements of the history and physical were unable to be obtained by the patient as he is altered and not answering questions. He took all of his medications last night, but has not taken anything this morning. He also was supposed to get a blood transfusion yesterday, but was unable to due to lack of staffing reportedly. Allergies and Home Medications Allergies Coded Allergies: Sulfa (Sulfonamide Antibiotics) (Verified Allergy, Intermediate, RASH, TROUBLE BREATHING, 03/14/22) Tetanus Vaccines and Toxoid (Verified Allergy, Unknown, ARMS SWELLS , 03/14/22) cephalexin (Verified Allergy, Unknown, RASH, 03/14/22) Patient Home Medication List Home Medication List Reviewed: Yes Acetaminophen (Tylenol Extra Strength) 500 Mg Tablet, 500 MG PO Q8H PRN for PAIN-MILD (1-4), (Reported) Entered as Reported by: BRUCE MENCHACA on 12/27/21 1333 Cholestyramine (with Sugar) (Cholestyramine Packet) 4 Gram Powd.pack, 4 GM PO DAILY, (Reported) Entered as Reported by: BRUCE MENCHACA on 12/27/21 1337 Finasteride (Finasteride) 5 Mg Tablet, 5 MG PO DAILY, (Reported) Entered as Reported by: JOCELYN REVELES on 03/15/19 1229 Lenalidomide (Revlimid) 2.5 Mg Capsule, 5 MG PO HS, (Reported) Entered as Reported by: BRUCE MENCHACA on 12/27/21 1335 Prednisone (Prednisone) 10 Mg Tab, UD, (Reported) Entered as Reported by: SAMIR NGUYEN on 03/14/22 0957 Tamsulosin HCl (Flomax) 0.4 Mg Cap, 0.8 MG PO DAILY, (Reported) Entered as Reported by: JOCELYN REVELES on 03/15/19 1229 Review of Systems Review of Systems Constitutional: fever EENTM: No nose congestion Respiratory: No cough, No short of breath Cardiovascular: No chest pain Gastrointestinal: No diarrhea, No vomiting Genitourinary: No decreased output, No dysuria Musculoskeletal: see HPI Skin: see HPI Psychiatric/Neurological: Other (Altered mental status) Hematologic/Lymphatic: See HPI Immunological/Allergic: no symptoms reported All Other Systems Reviewed Negative Unless Noted: Yes Past Jdlndsl-Bdwwnx-Pwnrgt Hx Patient Social History Tobacco Use?: Yes Tobacco type used: Cigarettes Smoking Status: Current Someday Smoker Substance use?: No Alcohol Use?: No Pt feels they are or have been: No Immunizations Up To Date Tetanus Booster (TDap): Unknown PED Vaccines UTD: Yes Influenza Vaccine Up-to-Date: Yes; Up-to-Date First/Initial COVID19 Vaccinat: 2020 Second COVID19 Vaccination Brendon: 2020 Third COVID19 Vaccination Date: 2020 Seasonal Allergies Seasonal Allergies: No Past Medical History Surgery/Hospitalization HX: PAD, ANEMIA, TYPE OF LEUKEMIA, UTI, PVD, RARS-T RBK AMP 2018 Surgeries: Yes (RIGHT BKA 03/2019;PICC LINE IN R ARM OF 06/30/19;LOOP R ECORDER 04/15/20) Amputation, Cardiac, Orthopedic, Tonsillectomy Respiratory: Yes (RESPIRATORY FAILURE WITH SIRS AND PNEUMONIA 04/2019; PNEUMONIA 05/2019) Asthma, Pneumonia, COPD Currently Using CPAP: No Currently Using BIPAP: No Cardiac: Yes (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;LOOP RECORDER) Atrial Fibrillation, High Cholesterol, Hypertension, Peripheral Vascular Neurological: Yes (POSSIBLY PER ) Dementia Genitourinary: Yes (HX OF HEMATURIA; HX OF RENAL FAILURE WITH SIRS/PNEUMONIA 04/2019) Benign Prostatic Hyperpl, Bladder Infection, Renal Failure Gastrointestinal: Yes (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) Chronic Constipation Musculoskeletal: Yes (RIGHT BKA; GENERALIZED WEAKNESS) Amputee, Arthritis Endocrine: No HEENT: Yes Hearing Impairment: Hard of Hearing, Bilateral Hearing Aide Cancer: Yes (MYELODYSPLASTIC DISORDER WITH LEUKOPENIA, ANEMIA AND THROMBOCYTOSIS) Did You Recieve Any Treatments: Yes What Type of Treatment Did You: Chemotherapy Psychosocial: Yes (SLEEPS 19-20 HOURS) Integumentary: Yes (LEFT ANKLE /LEFT HEEL WOUND; PYODERMA GANGRENOSUM) Blood Disorders: Yes (refractory anemia /ring sideroblasts W/ thrombocytosis;MYELODYSPLASIA) Adverse Reaction/Blood Tranf: No Family Medical History No Pertinent Family Hx, Hypertension MYELODYSPLASTIC SYNDROME /MYELOPROLIFERATIVE DISORDER WAS DX 2016 IN [place]. HAD BEEN ON HYDROXYUREA, THIS WAS DC'D AND PT HAS BEEN ON ANAGRELIDE SINCE 03/2019. RECEIVES WEEKLY BLOOD TRANSFUSIONS--EVERY MONDAY ADDITIONAL PMH : -NSTEMI 04/23/19. -MULTIPLE EPISODES OF RESPIRATORY FAILURE Physical Exam Vital Signs Vital Signs - First Documented 07/12/22 10:25 Temp 39.4 Pulse 67 Resp 22 B/P (MAP) 144/50 (81) Pulse Ox 94 O2 Delivery Room Air Capillary Refill : Height, Weight, BMI Height: 6'1.00" Weight: 196lbs. oz. 88.029810lu; BMI Method:Stated General Appearance: Other (Patient laying in bed calm, eyes closed, does open them up to voice and answers few questions but confused, thin, chronically ill- appearing) Eyes: Bilateral Eye Normal Inspection, Bilateral Eye PERRL HEENT: PERRL/EOMI, TMs Normal, Pharynx Normal, Other (Tongue does appear dry) Neck: Full Range of Motion, Normal Inspection, Non Tender, Supple Respiratory: Chest Non Tender, Lungs Clear, Normal Breath Sounds, No Accessory Muscle Use, No Respiratory Distress Cardiovascular: Regular Rate, Rhythm, No Edema, Normal Peripheral Pulses Gastrointestinal: Normal Bowel Sounds, Non Tender, Soft; No Distended, No Guarding Back: Normal Inspection, No CVA Tenderness, No Vertebral Tenderness, Other (No sacral wound visualized) Neurologic/Psychiatric: Alert, Other (Oriented to self only, moves all extremities equally, no facial droop or obvious cranial nerve abnormality but exam is limited by his willingness to perform actions) Skin: Other (Appears to be dry gangrene of the left big toe through the third digit extending down through the metatarsals with some blistering in the area as well, right lower extremity below the knee amputation with some darkened color changes and pain with palpation) Lymphatic: No Adenopathy Focused Exam Sepsis Stage: Severe Sepsis Possible Source: Bone/Joint Lactate Level 07/12/22 10:30: Lactic Acid Level 2.09*H 07/12/22 12:49: Lactic Acid Level 2.53*H Time of Focused Exam: 11:30 Respiratory: Chest Non Tender, Lungs Clear, Normal Breath Sounds, No Accessory Muscle Use, No Respiratory Distress Cardiovascular: Regular Rate, Rhythm, No Edema Capillary Refill: Less Than 3 Seconds (in his hands) Peripheral Pulses: 2+ Radial Pulses (R), 2+ Radial Pulses (L) Skin: normal color, warm/dry, cool (Left foot is cold) Lactic Acid Level Laboratory Tests Test 07/12/22 10:30 07/12/22 12:49 Lactic Acid Level 2.09 MMOL/L (0.50-2.00) *H 2.53 MMOL/L (0.50-2.00) *H Within 3hrs of presentation: Admin fluids, Admin ABX, Blood cultures prior to ABX's, Focus exam, Lactate level Progress/Results/Core Measures Suspected Sepsis SIRS Temperature: Pulse: 67 Respiratory Rate: 22 Laboratory Tests 07/12/22 10:30: White Blood Count 6.9 Blood Pressure 144 /50 Mean: 81 07/12/22 10:30: Lactic Acid Level 2.09*H 07/12/22 12:49: Lactic Acid Level 2.53*H Laboratory Tests 07/12/22 10:30: Creatinine 1.09, INR Comment 1.6H, Platelet Count 522H, Total Bilirubin 2.0H Results/Orders Lab Results Laboratory Tests Test 07/12/22 10:30 07/12/22 10:50 07/12/22 11:37 07/12/22 12:49 Range/Units White Blood Count 6.9 4.3-11.0 10^3/uL Red Blood Count 1.98 L 4.30-5.52 10^6/uL Hemoglobin 5.6 *L 13.3-17.7 g/dL Hematocrit 17 *L 40-54 % Mean Corpuscular Volume 86 80-99 fL Mean Corpuscular Hemoglobin 28 25-34 pg Mean Corpuscular Hemoglobin Concent 33 32-36 g/dL Red Cell Distribution Width 14.5 10.0-14.5 % Platelet Count 522 H 130-400 10^3/uL Mean Platelet Volume 11.4 9.0-12.2 fL Immature Granulocyte % (Auto) 1 % Neutrophils (%) (Auto) 75 42-75 % Lymphocytes (%) (Auto) 11 L 12-44 % Monocytes (%) (Auto) 9 0-12 % Eosinophils (%) (Auto) 3 0-10 % Basophils (%) (Auto) 1 0-10 % Neutrophils # (Auto) 5.2 1.8-7.8 10^3/uL Lymphocytes # (Auto) 0.7 L 1.0-4.0 10^3/uL Monocytes # (Auto) 0.6 0.0-1.0 10^3/uL Eosinophils # (Auto) 0.2 0.0-0.3 10^3/uL Basophils # (Auto) 0.1 0.0-0.1 10^3/uL Immature Granulocyte # (Auto) 0.1 0.0-0.1 10^3/uL Erythrocyte Sedimentation Rate 98 H 0-30 MM/HR Prothrombin Time 19.8 H 12.2-14.7 SEC INR Comment 1.6 H 0.8-1.4 Activated Partial Thromboplast Time 46 H 24-35 SEC Sodium Level 138 135-145 MMOL/L Potassium Level 4.3 3.6-5.0 MMOL/L Chloride Level 103 98-107 MMOL/L Carbon Dioxide Level 25 21-32 MMOL/L Anion Gap 10 5-14 MMOL/L Blood Urea Nitrogen 30 H 7-18 MG/DL Creatinine 1.09 0.60-1.30 MG/DL Estimat Glomerular Filtration Rate 69 BUN/Creatinine Ratio 28 Glucose Level 65 L 70-105 MG/DL Lactic Acid Level 2.09 *H 2.53 *H 0.50-2.00 MMOL/L Calcium Level 7.9 L 8.5-10.1 MG/DL Corrected Calcium 8.5 8.5-10.1 MG/DL Total Bilirubin 2.0 H 0.1-1.0 MG/DL Aspartate Amino Transf (AST/SGOT) 46 H 5-34 U/L Alanine Aminotransferase (ALT/SGPT) 143 H 0-55 U/L Alkaline Phosphatase 105 40-136 U/L Troponin I 0.081 H <0.028 NG/ML C-Reactive Protein High Sensitivity 8.43 H 0.00-0.50 MG/DL Total Protein 5.8 L 6.4-8.2 GM/DL Albumin 3.2 3.2-4.5 GM/DL Urine Color YELLOW Urine Clarity CLEAR Urine pH 6.0 5-9 Urine Specific [place] 1.025 H 1.016-1.022 Urine Protein 2+ H NEGATIVE Urine Glucose (UA) NEGATIVE NEGATIVE Urine Ketones NEGATIVE NEGATIVE Urine Nitrite NEGATIVE NEGATIVE Urine Bilirubin NEGATIVE NEGATIVE Urine Urobilinogen 0.2 < = 1.0 MG/DL Urine Leukocyte Esterase NEGATIVE NEGATIVE Urine RBC (Auto) 2+ H NEGATIVE Urine RBC RARE /HPF Urine WBC NONE /HPF Urine Squamous Epithelial Cells RARE /HPF Urine Crystals NONE /LPF Urine Bacteria NEGATIVE /HPF Urine Casts NONE /LPF Urine Mucus NEGATIVE /LPF Urine Culture Indicated NO Influenza Type A (RT-PCR) Not Detected Not Detecte Influenza Type B (RT-PCR) Not Detected Not Detecte SARS-CoV-2 RNA (RT-PCR) Not Detected Not Detecte My Orders Orders - VANESSA CASTRO MD Cbc With Automated Diff (07/12/22 10:38) Comprehensive Metabolic Panel (07/12/22 10:38) Blood Culture (07/12/22 10:38) Urinalysis (07/12/22 10:38) Urine Culture (07/12/22 10:38) Protime With Inr (07/12/22 10:38) Partial Thromboplastin Time (07/12/22 10:38) Chest 1 View, Ap/Pa Only (07/12/22 10:38) Ed Iv/Invasive Line Start (07/12/22 10:38) Ekg Tracing (07/12/22 10:38) Troponin I Mckenzie (07/12/22 10:38) Vital Signs Adult Sepsis Patie Q15M (07/12/22 10:38) O2 (07/12/22 10:38) Remove Rings In Anticipation O (07/12/22 10:38) Lactic Acid Analyzer (07/12/22 10:38) Influenza A And B By Pcr (07/12/22 10:38) Ns Iv 1000 Ml (Sodium Chloride 0.9%) (07/12/22 10:45) Cefepime Injection (Maxipime Injection) (07/12/22 10:45) Vancomycin Injection (Vancomycin Injecti (07/12/22 10:45) Vancomycin Injection (Vancomycin Injecti (07/12/22 11:45) Covid 19 Inhouse Test (07/12/22 10:38) Hs C Reactive Protein (07/12/22 10:38) Erythrocyte Sedimentation Rate (07/12/22 10:38) Foot, Left, 3 Views (07/12/22 10:38) Tibia/Fibula, Right, 2 Views (07/12/22 10:38) Catheter(Urinary) Insert & Ass 03,15 (07/12/22 10:38) Lidocaine 2% (Urojet) (Xylocaine Urojet) (07/12/22 10:45) Acetaminophen Suppository (Tylenol Suppo (07/12/22 10:45) Type And Screen (07/12/22 10:44) Lidocaine 2% (Urojet) (Xylocaine Urojet) (07/12/22 10:44) Vancomycin Injection (Vancomycin Injecti (07/12/22 11:15) D50w (Emergency) Syringe (Dextrose 50% 5 (07/12/22 11:30) D50w (Emergency) Syringe (Dextrose 50% 5 (07/12/22 11:23) Vital Signs: Special (Order) (07/12/22 11:50) Consent-Obtain Consent For (07/12/22 11:50) Monitor S/S Transfusion Reacti (07/12/22 11:50) Ns Iv 500 Ml (Sodium Chloride 0.9%) (07/12/22 12:00) Red Cells Leukocytes Reduced (07/12/22 11:50) Metronidazole 500mg/100ml Ivpb (Flagyl 5 (07/12/22 12:00) Medications Given in ED Current Medications Medications Dose Ordered Sig/[place]ville Route Start Time Stop Time Status Last Admin Dose Admin Acetaminophen 650 mg ONCE ONCE CO 07/12/22 10:45 07/12/22 10:46 DC 07/12/22 10:53 650 MG Cefepime HCl 1000 mg/Sodium Chloride 50 ml @ 100 mls/hr ONCE ONCE IV 07/12/22 10:45 07/12/22 11:14 DC 07/12/22 11:00 100 MLS/HR Dextrose 25 ml ONCE ONCE IV 07/12/22 11:30 07/12/22 11:31 DC 07/12/22 11:25 25 ML Lidocaine HCl 10 ml ONCE ONCE TOP 07/12/22 10:45 07/12/22 10:46 DC 07/12/22 10:44 10 ML Metronidazole 100 ml @ 100 mls/hr ONCE ONCE IV 07/12/22 12:00 07/12/22 12:59 DC 07/12/22 12:11 100 MLS/HR Vancomycin HCl 1750 mg/Sodium Chloride 517.5 ml @ 258.75 mls/ hr ONCE ONCE IV 07/12/22 11:15 07/12/22 13:14 DC 07/12/22 12:25 258.75 MLS/HR Vital Signs/I&O 07/12/22 07/12/22 07/12/22 07/12/22 10:25 13:32 13:40 13:50 Temp 39.4 39.2 38.7 38.1 Pulse 67 71 75 73 Resp 22 18 18 18 B/P (MAP) 144/50 (81) 111/39 111/39 122/41 Pulse Ox 94 100 99 O2 Delivery Room Air Room Air Room Air Room Air Capillary Refill : Blood Pressure Mean: 81 Progress Note : Progress Note 76-year-old male with above history coming in due to altered mental status in the setting of a fever. Temp was elevated here, heart rate normal in the 60s, blood pressure slightly hypertensive around 140s systolic with his ABCs being intact. Physical exam with right lower extremity below the knee amputation with some purple color changes and pain in the area. Left lower extremity with gangrenous changes. I am unable to palpate a pulse, but I was able to see Doppler flow of his PT pulse in his left lower extremity, visualized the DP artery but no Doppler flow seen. He has had poor blood flow for quite some time and this likely is chronic. His port was accessed and he was given IV cefepime, vancomycin, and Flagyl to cover broad-spectrum infections including anaerobes and skin infection potentially. Received 500 cc of IV fluids per EMS and 1 L from us. This on top of the antibiotics is more than 20 cc/kg resuscitation. Labs significant for lactate slightly elevated just above 2, normal white blood cell count, elevated inflammatory markers with CRP trending up from 1-1/2 to over 8, normal creatinine, slightly elevated troponin which is likely a type II NSTEMI in the setting of his illness. EKG ordered and interpreted by me showing no ischemic changes including no STEMI. He was given Tylenol per rectum suppos itory for his fever. X-ray of the chest, left lower extremity, and right stump in his leg ordered and interpreted by me showing concerns for osteomyelitis and its stump as well as some changes that would be concerning for osteomyelitis in his left metatarsal heads of his foot. I discussed this with the family, and he has stated in the past that he does not want surgery anymore. They have discussed hospice in the past. He is confused at this time and unable to give consent for surgery given the osteomyelitis. We discussed hospice versus being admitted to the hospital. They would like to try antibiotics to see if his mental status clears. If he is able to become more alert, he may be able to consent to surgery. If he worsens, family would like to put him on hospice. I discussed the case with the surgeon, Dr. Ragland and he is aware of this plan. I then called Dr. BURCH who will admit the patient to the [facility] floor under inpatient status for further observation and management. The patient is DNR/DN I. Of note, I did not consult with cardiology as of yet given the patient's goals and not wanting procedures as well as it was a slight bump in the setting of increased metabolic demands with no EKG changes. If his troponin trends up significantly then they can be consulted. Of note, orders were placed by me for his initial stay as an inpatient. I will change him from cefepime and Flagyl over to Zosyn to have the same coverage with a single antibiotic. I also ordered a unit of blood to be given for his chronic anemia with hemoglobin today 5.6. Of note, there is a delay for the patient being transferred to the admitted bed upstairs since there are currently no beds available. ECG Initial ECG Impression Date: Jul 12, 2022 Initial ECG Impression Time: 11:37 Initial ECG Rate: 84 Initial ECG Rhythm: Normal Sinus Comment Narrow QRS, normal axis, no significant ST changes or T wave abnormalities Diagnostic Imaging Diagonstic Imaging: Xray (chest, left foot, R leg stump) Comments NAME: FARZAD HANNA MED REC#: [id number] PT STATUS: REG ER : 1945 PHYSICIAN: VANESSA CASTRO MD ADMIT DATE: 07/12/22/ER Draft Date of Exam:07/12/22 CHEST 1 VIEW, AP/PA ONLY CLINICAL INDICATION: Patient arrived per EMS with fever and altered mental status. Patient has history of cancer. EXAM: Portable chest x-ray upright view. COMPARISON: Chest x-ray dated 06/01/2022. FINDINGS: Ruhvzp-O-Mmnf is seen overlying the right chest in similar positions to prior study. Lungs/pleura: There are increased lung markings throughout both lungs again seen. Slight low lung volumes seen. There is no pneumothorax. There is no pleural effusion. Mediastinum: Unremarkable. Pulmonary vasculature: There is mild pulmonary vascular congestion again seen. Heart: There is mild cardiomegaly. Loop recorder is again seen. Bones/extrathoracic soft tissue: Unremarkable. IMPRESSION: 1: There is no significant change to the prior chest x-ray with increased lung markings throughout both lungs which may be related to interstitial edema and pulmonary vascular congestion. There is cardiomegaly and pulmonary vascular congestion. These findings may be seen with congestive heart failure. Superimposed subtle infiltrates cannot be completely excluded. 2: The remainder of this exam shows no significant interval change compared to the prior study of comparison. Dictated on workstation # [id number] Dict: 07/12/22 1143 Trans: 07/12/22 1153 AS6 [id number] Interpreted by: MARC STONE MD Electronically signed by: [facility], [facility]. [place], [place] NAME: FARZAD HANNA [facility] REC#: [id number] PT STATUS: REG ER : 1945 PHYSICIAN: VANESSA CASTRO MD ADMIT DATE: 07/12/22/ER Draft Date of Exam:07/12/22 FOOT, LEFT, 3 VIEWS CLINICAL INDICATION: Patient arrived with fever with EMS. Patient has history of cancer. Patient has wounds on left foot and discolored whole bottom of foot and delayed capillary refill. EXAM: X-ray left foot, 3 views. COMPARISON: None. Findings and impression: 1: There is no acute fracture or dislocation. 2: There is soft tissue swelling seen medial to the 1st MTP joint and plantar aspect of the MTP region. There is no soft tissue air or radiodense foreign object. 3: There is bony loss involving the 1st through 5th MTP joint bony structures with the 5th MTP region affected the most. Unable to exclude erosive changes, but these findings may be related to osteopenia. 4: There are small degenerative spurs involving the 1st MTP joint and plantar aspect of the calcaneus. Dictated on workstation # [id number] Dict: 07/12/22 1151 Trans: 07/12/22 1200 [id number] Interpreted by: MARC STONE MD Electronically signed by: [facility]. [place], [place] NAME: FARZAD HANNA [facility] REC#: [id number] PT STATUS: REG ER : 1945 PHYSICIAN: VANESSA CASTRO MD ADMIT DATE: 07/12/22/ER Draft Date of Exam:07/12/22 TIBIA/FIBULA, RIGHT, 2 VIEWS INDICATION: Fever in patient with right below-knee amputation. FINDINGS: AP and lateral views of right leg are obtained from distal femur to the leg stump. Surgical clips are seen near the stump at the level of mid tibial and fibular shafts. There is periosteal reaction with irregular lucency within the remaining fibular shaft as well as along the lateral margin of the right fibular diaphyseal remnant. There is no evidence of fracture. Knee joint appears to be intact. There is atherosclerotic calcification within distal superficial femoral artery and popliteal artery. IMPRESSION: Lytic regions of tibial and fibular remnants with periosteal reaction, most pronounced in the fibula, would be compatible with osteomyelitis and clinical correlation is recommended. Dictated on workstation # [id number] Dict: 07/12/22 1143 Trans: 07/12/22 1148 [id number] [id number] Interpreted by: FARZAD ALVAREZ MD Electronically signed by: Departure Impression Primary Impression: Severe sepsis Additional Impressions: Osteomyelitis Qualified Codes: M86.161 - Other acute osteomyelitis, right tibia and fibula Symptomatic anemia Disposition: ADMITTED INPATIENT Condition: Stable Admissions Decision to Admit Reason: Admit from ER (General) Decision to Admit/Date: Jul 12, 2022 Time/Decision to Admit Time: 12:20 Departure-Patient Inst. Referrals: KEVIN BURCH DO (PCP/Family) Primary Care Physician VANESSA CASTRO MD Jul 12, 2022 10:49
[2022-07-12 10:52] LABS: BASOPHILS # (AUTO) 0.1 10^3/uL (0.0-0.1); BASOPHILS % (AUTO) 1 % (0-10); EOSINOPHILS # (AUTO) 0.2 10^3/uL (0.0-0.3); EOSINOPHILS % (AUTO) 3 % (0-10); LYMPHOCYTES # (AUTO) 0.7 10^3/uL (1.0-4.0); LYMPHOCYTES % (AUTO) 11 % (12-44); MEAN CORPUSCULAR HEMOGLOBIN 28 pg (25-34); MEAN CORPUSCULAR HGB CONC 33 g/dL (32-36); MEAN CORPUSCULAR VOLUME 86 fL (80-99); MEAN PLATELET VOLUME 11.4 fL (9.0-12.2); MONOCYTES # (AUTO) 0.6 10^3/uL (0.0-1.0); MONOCYTES % (AUTO) 9 % (0-12); NEUTROPHILS # (AUTO) 5.2 10^3/uL (1.8-7.8); NEUTROPHILS % (AUTO) 75 % (42-75); PLATELET COUNT 522 10^3/uL (130-400); WHITE BLOOD COUNT 6.9 10^3/uL (4.3-11.0)
[2022-07-12 10:54] LABS: HEMATOCRIT 17 % (40-54); HEMOGLOBIN 5.6 g/dL (13.3-17.7)
[2022-07-12 10:56] LABS: ALBUMIN 3.2 GM/DL (3.2-4.5); POTASSIUM 4.3 MMOL/L (3.6-5.0)
[2022-07-12 10:57] LABS: CALCIUM 7.9 MG/DL (8.5-10.1)
[2022-07-12 10:59] LABS: TOTAL PROTEIN 5.8 GM/DL (6.4-8.2)
[2022-07-12 11:03] LABS: CREATININE SERUM 1.09 MG/DL (0.60-1.30); INR 1.6 (0.8-1.4); PROTHROMBIN TIME PATIENT 19.8 SEC (12.2-14.7)
[2022-07-12 11:12] LABS: BILIRUBIN,URINE NEGATIVE (NEGATIVE); CLARITY,URINE CLEAR; COLOR,URINE YELLOW; GLUCOSE, URINE (UA) NEGATIVE (NEGATIVE); KETONES,URINE NEGATIVE (NEGATIVE); LEUKOCYTE ESTERASE ,URINE NEGATIVE (NEGATIVE); NITRITE,URINE NEGATIVE (NEGATIVE); PROTEIN,URINE 2+ (NEGATIVE)
[2022-07-12] MEDS ORDERED: VANCOMYCIN 1,750 MG/NS 500 ML IVPB IV ONE ×2 (11:15)
[2022-07-12 11:20] LABS: ERYTHROCYTE SEDIMENTATION RATE 98 MM/HR (0-30)
[2022-07-12] MEDS ORDERED: DEXTROSE 50% 50 ML (IMS) SYR ONE (11:23)
[2022-07-12 11:25] LABS: BACTERIA,URINE NEGATIVE /HPF; RBC,URINE RARE /HPF; SQUAMOUS EPITHELIAL CELL,UR RARE /HPF
[2022-07-12] MEDS ORDERED: DEXTROSE 50% 50 ML (IMS) SYR IV ONE (11:30)
[2022-07-12] MEDS ORDERED: VANCOMYCIN INJECTION 750 MG in NS (IVPB) 250 ML IV ONE (11:45)
--- NOTE | 2022-07-12 11:49 | Diagnostic Imaging Report ---
INDICATION: Fever in patient with right below-knee amputation. FINDINGS: AP and lateral views of right leg are obtained from distal femur to the leg stump. Surgical clips are seen near the stump at the level of mid tibial and fibular shafts. There is periosteal reaction with irregular lucency within the remaining fibular shaft as well as along the lateral margin of the right fibular diaphyseal remnant. There is no evidence of fracture. Knee joint appears to be intact. There is atherosclerotic calcification within distal superficial femoral artery and popliteal artery. IMPRESSION: Lytic regions of tibial and fibular remnants with periosteal reaction, most pronounced in the fibula, would be compatible with osteomyelitis and clinical correlation is recommended. Dictated by: Dictated on workstation # [id number]
--- NOTE | 2022-07-12 11:54 | Diagnostic Imaging Report ---
CLINICAL INDICATION: Patient arrived per EMS with fever and altered mental status. Patient has history of cancer. EXAM: Portable chest x-ray upright view. COMPARISON: Chest x-ray dated 06/01/2022. FINDINGS: Iqrsnk-W-Rygk is seen overlying the right chest in similar positions to prior study. Lungs/pleura: There are increased lung markings throughout both lungs again seen. Slight low lung volumes seen. There is no pneumothorax. There is no pleural effusion. Mediastinum: Unremarkable. Pulmonary vasculature: There is mild pulmonary vascular congestion again seen. Heart: There is mild cardiomegaly. Loop recorder is again seen. Bones/extrathoracic soft tissue: Unremarkable. IMPRESSION: 1: There is no significant change to the prior chest x-ray with increased lung markings throughout both lungs which may be related to interstitial edema and pulmonary vascular congestion. There is cardiomegaly and pulmonary vascular congestion. These findings may be seen with congestive heart failure. Superimposed subtle infiltrates cannot be completely excluded. 2: The remainder of this exam shows no significant interval change compared to the prior study of comparison. Dictated by: Dictated on workstation # [id number]
[2022-07-12] MEDS ORDERED: metroNIDAZOLE 500MG/100ML IVPB 100 ML IV ONE (12:00)
[2022-07-12] MEDS ORDERED: NS IV 500 ML 500 ML IV SCH (12:00)
--- NOTE | 2022-07-12 12:01 | Diagnostic Imaging Report ---
CLINICAL INDICATION: Patient arrived with fever with EMS. Patient has history of cancer. Patient has wounds on left foot and discolored whole bottom of foot and delayed capillary refill. EXAM: X-ray left foot, 3 views. COMPARISON: None. Findings and impression: 1: There is no acute fracture or dislocation. 2: There is soft tissue swelling seen medial to the 1st MTP joint and plantar aspect of the MTP region. There is no soft tissue air or radiodense foreign object. 3: There is bony loss involving the 1st through 5th MTP joint bony structures with the 5th MTP region affected the most. Unable to exclude erosive changes, but these findings may be related to osteopenia. 4: There are small degenerative spurs involving the 1st MTP joint and plantar aspect of the calcaneus. Dictated by: Dictated on workstation # [id number]
--- NOTE | 2022-07-12 13:13 | Consultation - Surgery ---
DASH RICE 07/12/22 1313: History of Present Illness History of Present Illness Patient Consulted On(uma/time) 07/12/22 12:58 Date Seen by Provider: Jul 12, 2022 Time Seen by Provider: 12:35 History of Present Illness Surgery Consultation: Osteomylitits R. 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 Pt is currently intermittently unresponsive/although responds to pain, and did not participate in the interview which was gathered by his Daughter. Pt's Mental Status began to decline last night, but was still responsive, and then this morning the patient became unresponsive. Pt's daughter states this has occurred before, and the last couple times that it has occurred was w/ low hemoglobin and dehydration. Pt in the past has responded well with fluid resuscitation. Pt was supposed to receive a blood transfusion yesterday but was rescheduled to today due to staffing. Pt didn't make it to his appointment by that time. Pt has been dealing with chronic pain which is managed w/ opioid medication; pt has had dry gangreen for a month on the L. Foot; now there is worsening discoloration of the second toe and part of 1st great toe as well as 3rd toe that extends to dorsal mid foot. There is also purple discoloration to the plantar aspect of L. foot. This past weekend the pt's L dorsal foot has been draining serous fluid. Pt's stump is swollen with purplish discoloration and ulceration to the bottom of the R. LE stump that occurred about 3-4 days ago. Pt received a R. Foot CT showing Lytic regions of tibial and fibular remnants with periosteal reaction, most pronounced in the fibula indicating osteomyelitis which is why Surgery was consulted. Allergies and Home Medications Allergies Coded Allergies: Sulfa (Sulfonamide Antibiotics) (Verified Allergy, Intermediate, RASH, TROUBLE BREATHING, 07/12/22) Tetanus Vaccines and Toxoid (Verified Allergy, Unknown, ARMS SWELLS , 07/12/22) cephalexin (Verified Allergy, Unknown, RASH, 07/12/22) Patient Home Medication List Acetaminophen (Tylenol Extra Strength) 500 Mg Tablet, 500 MG PO Q8H PRN for PAIN -MILD (1-4), (Reported) Entered as Reported by: BRUCE MENCHACA on 12/27/21 1333 Cholestyramine (with Sugar) (Cholestyramine Packet) 4 Gram Powd.pack, 4 GM PO DAILY, (Reported) Entered as Reported by: BRUCE MENCHACA on 12/27/21 1337 Finasteride (Finasteride) 5 Mg Tablet, 5 MG PO DAILY, (Reported) Entered as Reported by: JOCELYN REVELES on 03/15/19 1229 Lenalidomide (Revlimid) 2.5 Mg Capsule, 5 MG PO HS, (Reported) Entered as Reported by: BRUCE MENCHACA on 12/27/21 1335 Prednisone (Prednisone) 10 Mg Tab, UD, (Reported) Entered as Reported by: SAMIR NGUYEN on 03/14/22 0957 Tamsulosin HCl (Flomax) 0.4 Mg Cap, 0.8 MG PO DAILY, (Reported) Entered as Reported by: JOCELYN REVELES on 03/15/19 1229 Past Ypttodn-Dopbyh-Wccdcc Hx Patient Social History Smoking Status: Current Someday Smoker Former Smoker, Quit: Mar 05, 2019 Type Used: Cigarettes 2nd Hand Smoke Exposure: No Recent Hopitalizations: No (ER 03/14/2022) Alcohol Use?: No Immunizations Up To Date Tetanus Booster (TDap): Unknown PED Vaccines UTD: Yes Seasonal Allergies Seasonal Allergies: No Surgeries History of Surgeries: Yes (RIGHT BKA 03/2019;PICC LINE IN R ARM OF 06/30/19;LOOP RECORDER 04/15/20) Surgeries: Amputation, Cardiac, Orthopedic, Tonsillectomy Respiratory History of Respiratory Disorde: Yes (RESPIRATORY FAILURE WITH SIRS AND PNEUMONIA 04/2019; PNEUMONIA 05/2019) Respiratory Disorders: Asthma, Pneumonia, COPD Cardiovascular History of Cardiac Disorders: Yes (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;LOOP RECORDER) Cardiac Disorders: Atrial Fibrillation, High Cholesterol, Hypertension, Peripheral Vascular Neurological History of Neurological Disord: Yes (POSSIBLY PER ) Neurological Disorders: Dementia Genitourinary History of Genitourinary Disor: Yes (HX OF HEMATURIA; HX OF RENAL FAILURE WITH SIRS/PNEUMONIA 04/2019) Genitourinary Disorders: Benign Prostatic Hyperpl, Bladder Infection, Renal Failure Gastrointestinal History of Gastrointestinal Di: Yes (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) Gastrointestinal Disorders: Chronic Constipation Musculoskeletal History of Musculoskeletal Dis: Yes (RIGHT BKA; GENERALIZED WEAKNESS) Musculoskeletal Disorders: Amputee, Arthritis Endocrine History of Endocrine Disorders: No HEENT History of HEENT Disorders: Yes Hearing Impairment: Hard of Hearing, Bilateral Hearing Aide 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, ANEMIA AND THROMBOCYTOSIS) Psychosocial History of Psychiatric Problem: Yes (SLEEPS 19-20 HOURS) Integumentary History of Skin or Integumenta: Yes (LEFT ANKLE /LEFT HEEL WOUND; PYODERMA GANGRENOSUM) Blood Transfusions History of Blood Disorders: Yes (refractory anemia /ring sideroblasts W/ thrombocytosis;MYELODYSPLASIA) Adverse Reaction to a Blood Tr: No Family Medical History Significant Family History: No Pertinent Family Hx, Hypertension Review of Systems-General Constitutional: chills, fever Cardiovascular: No chest pain Gastrointestinal: No abdominal pain, No constipation, No diarrhea, No nausea, No vomiting Genitourinary: incontinence (Past couple) Psychiatric/Neurological: Denies Numbness, Denies Tingling Physical Exam-General Problems Physical Exam Vital Signs Vital Signs - First Documented 07/12/22 10:25 Temp 39.4 Pulse 67 Resp 22 B/P (MAP) 144/50 (81) Pulse Ox 94 O2 Delivery Room Air Capillary Refill : Less Than 3 Seconds General Appearance: other (Altered Mental Status; Chronically Ill ) Neck: non-tender, supple Respiratory: chest non-tender, no respiratory distress, no accessory muscle use, decreased breath sounds Cardiovascular: regular rate, rhythm Peripheral Pulses: 2+ Radial Pulses (R), 2+ Radial Pulses (L) Gastrointestinal: normal bowel sounds, non tender, soft Extremities: inflammation, slow capillary refill (LLE), swelling Neurologic/Psychiatric: other (Altered Mental Status ) Skin: ecchymosis Lymphatic: no adenopathy Data Review Labs Laboratory Tests 07/12/22 10:30: White Blood Count 6.9, Red Blood Count 1.98L, Hemoglobin 5.6*L, Hematocrit 17*L, Mean Corpuscular Volume 86, Mean Corpuscular Hemoglobin 28, Mean Corpuscular Hemoglobin Concent 33, Red Cell Distribution Width 14.5, Platelet Count 522H, Mean Platelet Volume 11.4, Immature Granulocyte % (Auto) 1, Neutrophils (%) (Auto) 75, Lymphocytes (%) (Auto) 11L, Monocytes (%) (Auto) 9, Eosinophils (%) (Auto) 3, Basophils (%) (Auto) 1, Neutrophils # (Auto) 5.2, Lymphocytes # (Auto) 0.7L, Monocytes # (Auto) 0.6, Eosinophils # (Auto) 0.2, Basophils # (Auto) 0.1, Immature Granulocyte # (Auto) 0.1, Erythrocyte Sedimentation Rate 98H, Prothrombin Time 19.8H, INR Comment 1.6H, Activated Partial Thromboplast Time 46H, Sodium Level 138, Potassium Level 4.3, Chloride Level 103, Carbon Dioxide Level 25, Anion Gap 10, Blood Urea Nitrogen 30H, Creatinine 1.09, Estimat Glomerular Filtration Rate 69, BUN/Creatinine Ratio 28, Glucose Level 65L, Lactic Acid Level 2.09*H, Calcium Level 7.9L, Corrected Calcium 8.5, Total Bilirubin 2.0H, Aspartate Amino Transf (AST/SGOT) 46H, Alanine Aminotransferase (ALT/SGPT) 143H, Alkaline Phosphatase 105, Troponin I 0.081H, C-Reactive Protein High Sensitivity 8.43H, Total Protein 5.8L, Albumin 3.2 07/12/22 10:50: Urine Color YELLOW, Urine Clarity CLEAR, Urine pH 6.0, Urine Specific [place] 1.025H, Urine Protein 2+H, Urine Glucose (UA) NEGATIVE, Urine Ketones NEGATIVE, Urine Nitrite NEGATIVE, Urine Bilirubin NEGATIVE, Urine Urobilinogen 0.2, Urine Leukocyte Esterase NEGATIVE, Urine RBC (Auto) 2+H, Urine RBC RARE, Urine WBC NONE, Urine Squamous Epithelial Cells RARE, Urine Crystals NONE, Urine Bacteria NEGATIVE, Urine Casts NONE, Urine Mucus NEGATIVE, Urine Culture Indicated NO 07/12/22 11:37: Influenza Type A (RT-PCR) Not Detected, Influenza Type B (RT-PCR) Not Detected, SARS-CoV-2 RNA (RT-PCR) Not Detected 07/12/22 12:49: Radiology Date of Exam:07/12/22 TIBIA/FIBULA, RIGHT, 2 VIEWS INDICATION: Fever in patient with right below-knee amputation. FINDINGS: AP and lateral views of right leg are obtained from distal femur to the leg stump. Surgical clips are seen near the stump at the level of mid tibial and fibular shafts. There is periosteal reaction with irregular lucency within the remaining fibular shaft as well as along the lateral margin of the right fibular diaphyseal remnant. There is no evidence of fracture. Knee joint appears to be intact. There is atherosclerotic calcification within distal superficial femoral artery and popliteal artery. IMPRESSION: Lytic regions of tibial and fibular remnants with periosteal reaction, most pronounced in the fibula, would be compatible with osteomyelitis and clinical correlation is recommended. FOOT, LEFT, 3 VIEWS CLINICAL INDICATION: Patient arrived with fever with EMS. Patient has history of cancer. Patient has wounds on left foot and discolored whole bottom of foot and delayed capillary refill. EXAM: X-ray left foot, 3 views. COMPARISON: None. Findings and impression: 1: There is no acute fracture or dislocation. 2: There is soft tissue swelling seen medial to the 1st MTP joint and plantar aspect of the MTP region. There is no soft tissue air or radiodense foreign object. 3: There is bony loss involving the 1st through 5th MTP joint bony structures with the 5th MTP region affected the most. Unable to exclude erosive changes, but these findings may be related to osteopenia. 4: There are small degenerative spurs involving the 1st MTP joint and plantar aspect of the calcaneus. Date of Exam:07/12/22 CHEST 1 VIEW, AP/PA ONLY CLINICAL INDICATION: Patient arrived per EMS with fever and altered mental status. Patient has history of cancer. EXAM: Portable chest x-ray upright view. COMPARISON: Chest x-ray dated 06/01/2022. FINDINGS: Ntqcto-M-Iljh is seen overlying the right chest in similar positions to prior study. Lungs/pleura: There are increased lung markings throughout both lungs again seen. Slight low lung volumes seen. There is no pneumothorax. There is no pleural effusion. Mediastinum: Unremarkable. Pulmonary vasculature: There is mild pulmonary vascular congestion again seen. Heart: There is mild cardiomegaly. Loop recorder is again seen. Bones/extrathoracic soft tissue: Unremarkable. IMPRESSION: 1: There is no significant change to the prior chest x-ray with increased lung markings throughout both lungs which may be related to interstitial edema and pulmonary vascular congestion. There is cardiomegaly and pulmonary vascular congestion. These findings may be seen with congestive heart failure. Superimposed subtle infiltrates cannot be completely excluded. 2: The remainder of this exam shows no significant interval change compared to the prior study of comparison. Assessment/Plan Assessment/Plan Assessment/Plan Severe Sepsis Osteomyleitis Severe Anemia Elevated Troponin RARS-T Pulmonary Interstitial Edema SIRS+: Fever, Tachypenea; Source: Osteomyelitis; Elevated Lactic Acidosis ED started Vancomycin and Metronidazole Abx; IVF Resuscitation Hemoglobin: 5.6; Hematocrit 17%: Start Blood Transfusion Supportive Care and Pain Control Once Pt is stable and responsive, surgical plan will depend on if the patient want's surgery or not; stated in the past that he doesn't want surgery: Options could include wound debridement or amputation if pt consents to surgery; Untill then managed by CHON Winn DO 07/12/222042: History of Present Illness History of Present Illness History of Present Illness Consult requested by Dr. Gallegos for gangrene left foot and osteomyelitis right bka stump. Leeann is a 76 year old male with MDS. He has history of right BKA. He became altered yesterday and family states not himself and became unresponsive. Was urinating on himself. Also with fever. He has continued to decline. He has been seeing vascular surgeon in [place] to try and reestablish blood flow to left foot. Also with more swelling and skin change to right BKA stump. Patient family providing all information. Patient unable to provide due to condition. Family states that he was not wanting any further amputations. Currently with him not responding they do not consent for any surgical intervention. THey want to see if medical management improves his status, and if not want to transition him to hospice care. Allergies and Home Medications Allergies Coded Allergies: Sulfa (Sulfonamide Antibiotics) (Verified Allergy, Intermediate, RASH, TROUBLE BREATHING, 07/12/22) Tetanus Vaccines and Toxoid (Verified Allergy, Unknown, ARMS SWELLS , 07/12/22) cephalexin (Verified Allergy, Unknown, RASH, 07/12/22) Patient Home Medication List Home Medication List Reviewed: Yes Acetaminophen (Tylenol Extra Strength) 500 Mg Tablet, 500 MG PO Q8H PRN for PA IN-MILD (1-4), (Reported) Entered as Reported by: BRUCE MENCHACA on 12/27/21 1333 Cholestyramine (with Sugar) (Cholestyramine Packet) 4 Gram Powd.pack, 4 GM PO DAILY, (Reported) Entered as Reported by: BRUCE MENCHACA on 12/27/21 1337 Finasteride (Finasteride) 5 Mg Tablet, 5 MG PO DAILY, (Reported) Entered as Reported by: JOCELYN REVELES on 03/15/19 1229 Lenalidomide (Revlimid) 2.5 Mg Capsule, 5 MG PO HS, (Reported) Entered as Reported by: BRUCE MENCHACA on 12/27/21 1335 Prednisone (Prednisone) 10 Mg Tab, UD, (Reported) Entered as Reported by: SAMIR NGUYEN on 03/14/22 0957 Tamsulosin HCl (Flomax) 0.4 Mg Cap, 0.8 MG PO DAILY, (Reported) Entered as Reported by: JOCELYN REVELES on 03/15/19 1229 Past Vdhhanu-Biypxw-Cajpkh Hx Reviewed Nursing Assessment Reviewed/Agree w Nursing PMH: Yes Family Medical History Significant Family History: No Pertinent Family Hx Review of Systems-General ROS-Unable to Obtain: unable to provide due to condition Physical Exam-General Problems Physical Exam General Appearance: no apparent distress, other (Altered Mental Status; Chronically Ill ) HEENT: normal ENT inspection, other (perrl) Neck: non-tender, supple Respiratory: chest non-tender, no respiratory distress, no accessory muscle use Cardiovascular: regular rate, rhythm, no JVD Gastrointestinal: non tender, soft Rectal: deferred Back: no vertebral tenderness Extremities: slow capillary refill (LLE), swelling ( to right bka stump with necrotic portion of skin), other (left foot skin cool and mottled, changes of dry gangrene) Neurologic/Psychiatric: other (Altered Mental Status ) Skin: other (mottled left foot and changes of gangrene, the right bka stump with necrotic skin and edema) Lymphatic: no adenopathy Assessment/Plan Assessment/Plan Assessment/Plan Severe Sepsis MDS Osteomyleitis right bka Left foot gangrene Severe Anemia Altered mental status Elevated Troponin RARS-T Pulmonary Interstitial Edema Patient with altered mental status and sepsis. Family has states that he was not wanting any further amputations. They will not consent to that. They have discussed this with him previously. They wish to proceed with medical management and if he does not improve they plan on transitioning care to Hospice. If he improves mentally and can discuss and wishes to proceed with surgery, they will proceed as he wishes. DIscussed with family I will have social work consulted to help with any information regarding hospice care. Supervisory-Addendum Brief Verification & Attestation Participated in pt care: history, MDM, physical Personally performed: exam, history, MDM, supervision of care Care discussed with: Medical Student Procedures: n/a Results interpretation: Verified all documentation Verification and Attestation of Medical Student E/M Service A medical student performed and documented this service in my presence. I reviewed and verified all information documented by the medical student and made modifications to such information, when appropriate. I personally performed the physical exam and medical decision making. Chon Dubois, Jul 12, 2022,21:00 DASH RICE Jul 12, 2022 13:13 CHON DUBOIS DO Jul 12, 2022 20:43
[2022-07-12] MEDS ORDERED: ONDANSETRON 4 MG/2 ML (SDV) Z0FRAN IVP PRN (15:00)
[2022-07-12] MEDS ORDERED: PIPERACILLIN SODIUM/TAZOBACTAM 4.5 GM in NS (IVPB) 100 ML IV NR ×2 (15:00→17:00)
[2022-07-12] MEDS ORDERED: ACETAMINOPHEN 650 MG SUPP (TYLENOL) PR PRN (15:00)
[2022-07-12] MEDS: D5 LR IV SOLUTION 1,000 ML IV SCH ×2 (15:31→23:06)
--- NOTE | 2022-07-12 17:20 | Cardiology History & Physical ---
HPI-Cardiology Cardiology Consultation Date of Consultation 07/12/22 Date of Admission Time Seen by Provider: 16:00 [facility] Mr. Joe Agrawal is a 76-year-old male with a history of M DS, chronic anemia requiring weekly transfusions, PAD with right lower extremity BKA and left dista l phalangeal necrosis, BPH, hypertension, hyperlipidemia who presents with altered mental status and fever patient is currently DNR status. Patient's family has been dealing with vascular issues with his right stump and left foot. He recently saw a vascular surgeon down in [place] and they were planning on considering potential revascularization procedures. He was started on Xarelto 2.5 mg and aspirin 81 in an effort to help limit further progression of vascular disease. Unfortunately over the past several days he has become febrile and developed altered mental status. He has become less responsive laying in bed and urinating on himself. In the past he was lucid enough to do transfers on his own etc. Upon arrival to our ED, he has had plain films which demonstrate osteolytic lesions concerning for osteomyelitis. Chest x-ray is concerning for pulmonary edema. He also had a troponin that came back positive at 0.08. Cardiology is now consulted to aid in evaluation. PMH-Cardiology Immunizations Up To Date Tetanus Booster (DTap): Unknown Seasonal Allergies Seasonal Allergies: No Surgeries Yes (RIGHT BKA 03/2019;PICC LINE IN R ARM OF 06/30/19;LOOP RECORDER 04/15/20) Respiratory Yes (RESPIRATORY FAILURE WITH SIRS AND PNEUMONIA 04/2019; PNEUMONIA 05/2019) Cardiovascular Yes (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;LOOP RECORDER) Neurological Yes (POSSIBLY PER ) Dementia Genitourinary Yes (HX OF HEMATURIA; HX OF RENAL FAILURE WITH SIRS/PNEUMONIA 04/2019) Benign Prostatic Hyperpl, Bladder Infection, Renal Failure Gastrointestinal Yes (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) Chronic Constipation Musculoskeletal Yes (RIGHT BKA; GENERALIZED WEAKNESS) Amputee, Arthritis Endocrine No HEENT Yes Hearing Impairment: Hard of Hearing, Bilateral Hearing Aide Cancer Yes (MYELODYSPLASTIC DISORDER WITH LEUKOPENIA, ANEMIA AND THROMBOCYTOSIS) Did You Recieve Any Treatments: Yes Type of Treatment: Chemotherapy Psychosocial Yes (SLEEPS 19-20 HOURS) Integumentary Yes (LEFT ANKLE /LEFT HEEL WOUND; PYODERMA GANGRENOSUM) Blood Transfusions Yes (refractory anemia /ring sideroblasts W/ thrombocytosis;MYELODYSPLASIA) Adverse Rxn to Transfusion: No Other PMHx Myelodysplastic syndrome Chronic anemia requiring weekly transfusions Atrial fibrillation Peripheral vascular disease status post right lower extremity BKA BPH Hypertension Hyperlipidemia Social History Patient Social History Smoking: Current every day smoker (Smokes 0.5 to 1.5 packs/day and has done so for approximately 64 years) Have you traveled recently?: Unable to obtain Alcohol Use?: No Family Hx Significant Family History: No Pertinent Family Hx (Reviewed and is noncontributory), Hypertension ROS-Cardiology Review of Systems All systems were reviewed and are negative except for what is been described in HPI Home Medications & Allergies Allergies: Coded Allergies: Sulfa (Sulfonamide Antibiotics) (Verified Allergy, Intermediate, RASH, TROUBLE BREATHING, 07/12/22) Tetanus Vaccines and Toxoid (Verified Allergy, Unknown, ARMS SWELLS , 07/12/22) cephalexin (Verified Allergy, Unknown, RASH, 07/12/22) Cholestyramine Proscar 5 mg p.o. daily Revlimid 5 mg Prednisone 10 mg Flomax Xarelto 2.5mg Aspirin Exam-Cardiology Vital Signs Vital Signs Date Time Temp Pulse Resp B/P (MAP) Pulse Ox O2 Delivery O2 Flow Rate FiO2 07/12/22 15:44 66 07/12/22 15:33 Room Air 07/12/22 15:21 37.9 18 137/53 97 Exam General Appearance: Other (Not alert, not cooperative, resting in bed) HEENT: Atraumatic Respiratory: Normal Air Movement Cardiovascular: Regular Rate, Normal S1, Normal S2, No Murmurs (No gallops or rubs) Abdominal: Other (Hypoactive bowel sounds) Skin: Other (Necrotic debris on the right BKA stump, necrotic debris noted on the second and third metatarsophalangeal joints) Results Labs Labs Laboratory Tests 07/12/22 10:30: White Blood Count 6.9, Red Blood Count 1.98L, Hemoglobin 5.6*L, Hematocrit 17*L, Mean Corpuscular Volume 86, Mean Corpuscular Hemoglobin 28, Mean Corpuscular Hemoglobin Concent 33, Red Cell Distribution Width 14.5, Platelet Count 522H, Mean Platelet Volume 11.4, Immature Granulocyte % (Auto) 1, Neutrophils (%) (Auto) 75, Lymphocytes (%) (Auto) 11L, Monocytes (%) (Auto) 9, Eosinophils (%) (Auto) 3, Basophils (%) (Auto) 1, Neutrophils # (Auto) 5.2, Lymphocytes # (Auto) 0.7L, Monocytes # (Auto) 0.6, Eosinophils # (Auto) 0.2, Basophils # (Auto) 0.1, Immature Granulocyte # (Auto) 0.1, Erythrocyte Sedimentation Rate 98H, Prothrombin Time 19.8H, INR Comment 1.6H, Activated Partial Thromboplast Time 46H, Sodium Level 138, Potassium Level 4.3, Chloride Level 103, Carbon Dioxide Level 25, Anion Gap 10, Blood Urea Nitrogen 30H, Creatinine 1.09, Estimat Glomerular Filtration Rate 69, BUN/Creatinine Ratio 28, Glucose Level 65L, Lactic Acid Level 2.09*H, Calcium Level 7.9L, Corrected Calcium 8.5, Total Bilirubin 2.0H, Aspartate Amino Transf (AST/SGOT) 46H, Alanine Aminotransferase (ALT/SGPT) 143H, Alkaline Phosphatase 105, Troponin I 0.081H, C-Reactive Protein High Sensitivity 8.43H, Total Protein 5.8L, Albumin 3.2 07/12/22 10:50: Urine Color YELLOW, Urine Clarity CLEAR, Urine pH 6.0, Urine Specific [place] 1.025H, Urine Protein 2+H, Urine Glucose (UA) NEGATIVE, Urine Ketones NEGATIVE, Urine Nitrite NEGATIVE, Urine Bilirubin NEGATIVE, Urine Urobilinogen 0.2, Urine Leukocyte Esterase NEGATIVE, Urine RBC (Auto) 2+H, Urine RBC RARE, Urine WBC NONE, Urine Squamous Epithelial Cells RARE, Urine Crystals NONE, Urine Bacteria NEGATIVE, Urine Casts NONE, Urine Mucus NEGATIVE, Urine Culture Indicated NO 07/12/22 11:37: Influenza Type A (RT-PCR) Not Detected, Influenza Type B (RT-PCR) Not Detected, SARS-CoV-2 RNA (RT-PCR) Not Detected 07/12/22 12:49: Lactic Acid Level 2.53*H 07/12/22 15:07: Lactic Acid Level 1.95 07/12/22 17:01: A/P-Cardiology Admission Diagnosis Admission Status: Inpatient Order (span 2 midnights) Reason for Inpatient Admission: Poor appetite Malnutrition Anemia requiring weekly transfusions Assessment/Plan Mr. Khan is a 76-year-old gentleman with a history of myelodysplastic syndrome, atrial fibrillation, peripheral vascular disease status post right lower extremity BKA, BPH, hypertension, hyperlipidemia, anemia requiring weekly transfusions, current tobacco abuse who presents for evaluation of altered mental status and fevers. ## osteomyelitis. Plain films concerning for osteomyelitis and likely the nidus for his fever and altered mental status. Follow-up on blood cultures. Continue with anti-infectives as you are doing currently using vancomycin and Zosyn. ##NSTEMI, likely type II in the setting of osteomyelitis. Patient is currently DNR. Continue with aspirin as you are doing. . Suspect his troponin release is secondary to ongoing osteomyelitis. I would at least obtain an EKG for our review. Follow-up troponin in the a.m. No urgent indication at this point time for any form of intervention CORTNEY RODRIGUES MD Jul 12, 2022 5:20 pm
[2022-07-12] MEDS: VANCOMYCIN 750 MG/NS 250 ML IVPB IV SCH ×2 (23:07)
[2022-07-12] MEDS: PIPERACILLIN SODIUM/TAZOBACTAM 4.5 GM in NS (IVPB) 100 ML IV SCH (23:07)
[2022-07-12] MEDS: morphine INJ 4 MG/ML 1 ML (VIAL/SYRINGE) IVP PRN (23:34)
[2022-07-13] VITALS (11 sets, daily range): BP systolic 103–117; BP diastolic 50–66
[2022-07-13 05:54] LABS: BASOPHILS # (AUTO) 0.1 10^3/uL (0.0-0.1); BASOPHILS % (AUTO) 2 % (0-10); EOSINOPHILS # (AUTO) 0.1 10^3/uL (0.0-0.3); EOSINOPHILS % (AUTO) 2 % (0-10); LYMPHOCYTES # (AUTO) 0.6 10^3/uL (1.0-4.0); LYMPHOCYTES % (AUTO) 15 % (12-44); MEAN CORPUSCULAR HEMOGLOBIN 28 pg (25-34); MEAN CORPUSCULAR HGB CONC 32 g/dL (32-36); MEAN CORPUSCULAR VOLUME 86 fL (80-99); MEAN PLATELET VOLUME 11.9 fL (9.0-12.2); MONOCYTES # (AUTO) 0.3 10^3/uL (0.0-1.0); MONOCYTES % (AUTO) 8 % (0-12); NEUTROPHILS # (AUTO) 2.9 10^3/uL (1.8-7.8); NEUTROPHILS % (AUTO) 71 % (42-75); PLATELET COUNT 287 10^3/uL (130-400); WHITE BLOOD COUNT 4.1 10^3/uL (4.3-11.0)
[2022-07-13 06:19] LABS: HEMATOCRIT 17 % (40-54); HEMOGLOBIN 5.5 g/dL (13.3-17.7); SMEAR SCAN COMMENT YES
[2022-07-13] MEDS: morphine INJ 4 MG/ML 1 ML (VIAL/SYRINGE) IVP PRN ×2 (06:30→11:28)
[2022-07-13] MEDS: PIPERACILLIN SODIUM/TAZOBACTAM 4.5 GM in NS (IVPB) 100 ML IV SCH (06:30)
[2022-07-13] MEDS ORDERED: NS IV 500 ML 500 ML IV SCH (07:00)
--- NOTE | 2022-07-13 07:52 | Progress Note - Surgery ---
DASH RICE 07/13/22 0752: Subjective Date Seen by a Provider: Jul 13, 2022 Time Seen by a Provider: 04:20 Subjective/Events-last exam Pt was laying in bed with his knees to chest upon entering room for interview and assessment. Family was absent from room this morning. Per nurse pt has been able to respond to questions of pain and discomfort, but during my interview pt was unresponsive and kept eyes closed. Pt would intermittently move to adjust for comfort. L. Medial Ankle has some new discoloration from yesterday that seems to be extending from the bottom of his foot. The dry gangrene/osteomyelitis on dorsal foot seems to be stable from yesterday. Stable ulceration and purple discoloration on bottom of R. Stump. Focused Exam Lactate Level 07/12/22 10:30: Lactic Acid Level 2.09*H 07/12/22 12:49: Lactic Acid Level 2.53*H 07/12/22 15:07: Lactic Acid Level 1.95 Time of Focused Exam: 11:30 Objective Exam Vital Signs Date Time Temp Pulse Resp B/P (MAP) Pulse Ox O2 Delivery O2 Flow Rate FiO2 07/13/22 04:00 36.7 80 18 110/62 (78) 98 Room Air 07/13/22 01:00 78 07/13/22 00:20 37.5 07/12/22 23:15 38.9 75 18 112/72 (85) 95 Room Air 07/12/22 20:56 Room Air 07/12/22 19:58 37.5 80 20 107/64 (78) 94 Room Air 07/12/22 19:00 73 07/12/22 15:44 66 07/12/22 15:33 Room Air 07/12/22 15:21 37.9 81 18 137/53 97 Room Air 07/12/22 15:15 38.1 70 18 117/38 99 Room Air 07/12/22 15:14 37.9 81 18 137/53 (81) 97 Room Air 07/12/22 14:41 38.1 73 18 117/38 99 Room Air 07/12/22 13:50 38.1 73 18 122/41 99 Room Air 07/12/22 13:40 38.7 75 18 111/39 Room Air 07/12/22 13:32 39.2 71 18 111/39 100 Room Air 07/12/22 10:25 39.4 67 22 144/50 (81) 94 Room Air I & O 07/13/22 07:00 Intake Total 2750 ml Output Total 650 ml Balance 2100 ml Capillary Refill : Less Than 3 Seconds General Appearance: Chronically ill, Other (Patient laying in bed calm, eyes closed, didn't open eyes this morning compared to yesterday when being spoken to, chronically ill-appearing) HEENT: PERRL/EOMI, TMs Normal, Pharynx Normal, Other (Tongue does appear dry) Neck: Full Range of Motion, Normal Inspection, Non Tender, Supple Respiratory: Chest Non Tender, Lungs Clear, Normal Breath Sounds, No Accessory Muscle Use, No Respiratory Distress Cardiovascular: Regular Rate, Rhythm, No Edema Peripheral Pulses: 2+ Radial Pulses (R), 2+ Radial Pulses (L) Gastrointestinal: non tender, soft Neurologic/Psychiatric: Alert, Other (Oriented to self only, moves all extremities equally, no facial droop or obvious cranial nerve abnormality but exam is limited by his willingness to perform actions) Skin: Other (Appears to be dry gangrene of the left big toe through the third digit extending down through the metatarsals with some blistering in the area as well, right lower extremity below the knee amputation with some darkened color changes and pain with palpation) Lymphatic: No Adenopathy Results Lab Laboratory Tests 07/12/22 10:30: White Blood Count 6.9, Red Blood Count 1.98L, Hemoglobin 5.6*L, Hematocrit 17*L, Mean Corpuscular Volume 86, Mean Corpuscular Hemoglobin 28, Mean Corpuscular Hemoglobin Concent 33, Red Cell Distribution Width 14.5, Platelet Count 522H, Mean Platelet Volume 11.4, Immature Granulocyte % (Auto) 1, Neutrophils (%) (Auto) 75, Lymphocytes (%) (Auto) 11L, Monocytes (%) (Auto) 9, Eosinophils (%) (Auto) 3, Basophils (%) (Auto) 1, Neutrophils # (Auto) 5.2, Lymphocytes # (Auto) 0.7L, Monocytes # (Auto) 0.6, Eosinophils # (Auto) 0.2, Basophils # (Auto) 0.1, Immature Granulocyte # (Auto) 0.1, Erythrocyte Sedimentation Rate 98H, Prothrombin Time 19.8H, INR Comment 1.6H, Activated Partial Thromboplast Time 46H, Sodium Level 138, Potassium Level 4.3, Chloride Level 103, Carbon Dioxide Level 25, Anion Gap 10, Blood Urea Nitrogen 30H, Creatinine 1.09, Estimat Glomerular Filtration Rate 69, BUN/Creatinine Ratio 28, Glucose Level 65L, Lactic Acid Level 2.09*H, Calcium Level 7.9L, Corrected Calcium 8.5, Total Bilirubin 2.0H, Aspartate Amino Transf (AST/SGOT) 46H, Alanine Aminotransferase (ALT/SGPT) 143H, Alkaline Phosphatase 105, Troponin I 0.081H, C-Reactive Protein High Sensitivity 8.43H, Total Protein 5.8L, Albumin 3.2 07/12/22 10:50: Urine Color YELLOW, Urine Clarity CLEAR, Urine pH 6.0, Urine Specific [place] 1.025H, Urine Protein 2+H, Urine Glucose (UA) NEGATIVE, Urine Ketones NEGATIVE, Urine Nitrite NEGATIVE, Urine Bilirubin NEGATIVE, Urine Urobilinogen 0.2, Urine Leukocyte Esterase NEGATIVE, Urine RBC (Auto) 2+H, Urine RBC RARE, Urine WBC NONE, Urine Squamous Epithelial Cells RARE, Urine Crystals NONE, Urine Bacteria NEGATIVE, Urine Casts NONE, Urine Mucus NEGATIVE, Urine Culture Indicated NO 07/12/22 11:37: Influenza Type A (RT-PCR) Not Detected, Influenza Type B (RT-PCR) Not Detected, SARS-CoV-2 RNA (RT-PCR) Not Detected 07/12/22 12:49: Lactic Acid Level 2.53*H 07/12/22 15:07: Lactic Acid Level 1.95 07/12/22 17:01: Troponin I 0.125H 07/13/22 05:40: Troponin I 0.167H, White Blood Count 4.1L, Red Blood Count 1.98L, Hemoglobin 5.5*L, Hematocrit 17*L, Mean Corpuscular Volume 86, Mean Corpuscular Hemoglobin 28, Mean Corpuscular Hemoglobin Concent 32, Red Cell Distribution Width 14.6H, Platelet Count 287, Mean Platelet Volume 11.9, Immature Granulocyte % (Auto) 2, Neutrophils (%) (Auto) 71, Lymphocytes (%) (Auto) 15, Monocytes (%) (Auto) 8, Eosinophils (%) (Auto) 2, Basophils (%) (Auto) 2, Neutrophils # (Auto) 2.9, Lymphocytes # (Auto) 0.6L, Monocytes # (Auto) 0.3, Eosinophils # (Auto) 0.1, Basophils # (Auto) 0.1, Immature Granulocyte # (Auto) 0.1, Smear Scan YES Assessment/Plan Assessment/Plan Assessment/Plan Severe Sepsis - Lactic Acidosis has improved MDS Osteomyleitis right bka Left foot gangrene Severe Anemia - Pt had 1 unit of blood transfused yesterday; Hgb dropped slightly from yesterday (5.6 -> 5.5) Altered mental status Elevated Troponin- Troponin has increased today from 0.125 to 0.167. RARS-T Pulmonary Interstitial Edema Patient with altered mental status and sepsis. Family has states that he was not wanting any further amputations. They will not consent to that. They have discussed this with him previously. They wish to proceed with medical management and if he does not improve they plan on transitioning care to Hospice. If he improves mentally and can discuss and wishes to proceed with surgery, they will proceed as he wishes. CHON RAGLAND DO 07/13/228: Subjective Subjective/Events-last exam Patient remains unresponsive for the most part. Only will open eyes to pain. Family not seeing improvement they wish. They area likely going to choose comfort care. Patient unable to provide any information. Objective Exam General Appearance: Other (Patient laying in bed calm, eyes closed, opens eyes to pain chronically ill-appearing) Neck: Non Tender, Supple Respiratory: Chest Non Tender, No Accessory Muscle Use, No Respiratory Distress Cardiovascular: Regular Rate, Rhythm, No JVD Gastrointestinal: non tender, soft Neurologic/Psychiatric: Other (opens eyes to pain. otherwise unresponsive) Skin: Other (left foot with mottled appearance and cold consistent with ischemi and areas of gangrene, left bka stump less edema and unchanged ichemic skin) Lymphatic: No Adenopathy Assessment/Plan Assessment/Plan Assessment/Plan Severe Sepsis - Lactic Acidosis has improved MDS Osteomyleitis right bka Left foot gangrene/ischemia Severe Anemia - Pt had 1 unit of blood transfused yesterday; Hgb dropped slightly from yesterday (5.6 -> 5.5) Altered mental status Elevated Troponin- Troponin has increased today from 0.125 to 0.167. RARS-T Pulmonary Interstitial Edema discussed care plan with family, he is unable to make decisions and last time they spoke he did not want further surgery. Patient's family going to discuss with Dr. Gallegos about making him comfort care/hospice. I answered all questions they had for me. I will sign off, call if needed. Supervisory-Addendum Brief Verification & Attestation Participated in pt care: history, MDM, physical Personally performed: exam, history, MDM, supervision of care Care discussed with: Medical Student Procedures: n/a Results interpretation: Verified all documentation Verification and Attestation of Medical Student E/M Service A medical student performed and documented this service in my presence. I rev iewed and verified all information documented by the medical student and made modifications to such information, when appropriate. I personally performed the physical exam and medical decision making. Chon Ragland, Jul 13, 2022,22:21 DASH RICE Jul 13, 2022 07:52 CHON RAGLAND DO Jul 13, 2022 22:18
[2022-07-13] MEDS ORDERED: ASPIRIN E.C. 81 MG (ECOTRIN) TAB PO SCH (09:00)
[2022-07-13] MEDS ORDERED: PANTOPRAZOLE 40 MG (PROTONIX) VIAL IV SCH (09:00)
[2022-07-13] MEDS ORDERED: NS (IVPB) 250 ML ONE (09:35)
[2022-07-13] MEDS: D5 LR IV SOLUTION 1,000 ML IV SCH ×2 (09:42→11:33)
[2022-07-13] MEDS ORDERED: ACET-2267 PO (10:50)
[2022-07-13] MEDS ORDERED: LENA10CA PO (10:50)
[2022-07-13] MEDS ORDERED: DONE5TAB30 PO (10:50)
[2022-07-13] MEDS ORDERED: GABA300C PO ×2 (10:50)
[2022-07-13] MEDS ORDERED: PRD20T PO (10:50)
[2022-07-13] MEDS ORDERED: OMEP20CA18 PO (10:50)
[2022-07-13] MEDS ORDERED: TMSL.4C PO (10:50)
[2022-07-13] MEDS ORDERED: VANCOMYCIN 750 MG/VIAL IV ONE (12:14)
--- NOTE | 2022-07-13 12:17 | Progress Note - Cardiology ---
Cardiology SOAP Progress Note Subjective: Lying in bed Unresponsive Family x 3 at the bedside Objective: I&O/Vital Signs 07/13/22 07/13/22 07/13/22 07/13/22 00:20 01:00 04:00 07:52 Temp 37.5 36.7 37.3 Pulse 78 80 76 Resp 18 18 B/P (MAP) 110/62 (78) 115/64 (81) Pulse Ox 98 93 O2 Delivery Room Air Room Air 07/13/22 07/13/22 07/13/22 07/13/22 09:27 09:54 10:03 11:02 Temp 37.0 37.6 36.5 Pulse 73 64 66 70 Resp 18 18 18 B/P (MAP) 103/50 107/53 112/54 Pulse Ox 98 98 93 O2 Delivery Room Air Room Air Room Air 07/13/22 11:33 Temp 37.0 Pulse 75 Resp 18 B/P (MAP) 117/66 (83) Pulse Ox 95 O2 Delivery Room Air 07/13/22 00:00 Intake Total 2200 ml Output Total 150 ml Balance 2050 ml Weight (Pounds): 196 Weight (Calculated Kilograms): 88.665349 Constitutional: well-developed, other (does not repsond to questions; moves arms) Respiratory: other (coarse breath sounds) Cardiovascular: regular rate-rhythm, S1 and S2 Gastrointestional: audible bowel sounds Extremities: other ( R BKA; L LE with dark purlple discoloration to above the ankle), no lower extremity edema bilateral Neurologic/Psychiatric: other (moves upper extremities, but does not respond for follow commands) Skin: cool (Left foot is cold) Results/Procedures: Labs Laboratory Tests 07/12/22 12:49: Lactic Acid Level 2.53*H 07/12/22 15:07: Lactic Acid Level 1.95 07/12/22 17:01: Troponin I 0.125H 07/13/22 05:40: Troponin I 0.167H, White Blood Count 4.1L, Red Blood Count 1.98L, Hemoglobin 5.5*L, Hematocrit 17*L, Mean Corpuscular Volume 86, Mean Corpuscular Hemoglobin 28, Mean Corpuscular Hemoglobin Concent 32, Red Cell Distribution Width 14.6H, Platelet Count 287, Mean Platelet Volume 11.9, Immature Granulocyte % (Auto) 2, Neutrophils (%) (Auto) 71, Lymphocytes (%) (Auto) 15, Monocytes (%) (Auto) 8, Eosinophils (%) (Auto) 2, Basophils (%) (Auto) 2, Neutrophils # (Auto) 2.9, Lymphocytes # (Auto) 0.6L, Monocytes # (Auto) 0.3, Eosinophils # (Auto) 0.1, Basophils # (Auto) 0.1, Immature Granulocyte # (Auto) 0.1, Smear Scan YES Microbiology 07/12/22 Urine Culture - Final, Complete NO GROWTH Laboratory Tests 07/12/22 10:30 07/13/22 05:40 A/P: Assessment: Sepsis - d/t dry gangrene of his left foot - management per surgical services Peripheral arterial disease, history of right BKA Minimal troponin elevation - NSTEM vs Type 2 ND secondary to sepsis - per records family and patient do not want invasive procedures - continue medical management Paroxysmal atrial fibrillation - had a loop recorder implanted in April [address] Pagan, had paroxysmal atrial fibrillation with rapid ventricular response - Intolerant to OAC d/t significant anemia (chronic per Dr. Pagan's notes) - Echo was done in October [address] Pagan showing LVEF 50-55%. LA mod dilated. RA dilated. Small pericardial effusion. PASP 25-30 mmHg Myelodysplastic syndrome, thrombocytosis, anemia, worsening recently, followed with Dr. Hannah - receiving transfusion of PRBC - management per medical services Hypertension - controlled Tobaccoism, - has still smoking Family history of heart disease Plan: Gangrenous left foot - management per medical services NSTEMI vs Type 2 ND secondary to sepsis - family desires conservative management - continue current medication regimen Management of anemia per medical/surgical services PAF - not suitable for OAC d/t anemia Continue cardiac regimen Monitor lab Further recs based on hospital course Spoke with family FRANKLYN JACKSON Jul 13, 2022 12:17
[2022-07-13] MEDS: VANCOMYCIN 750 MG/NS 250 ML IVPB IV SCH ×2 (12:20)
[2022-07-13] MEDS ORDERED: RT-ALBUTEROL/IPRATROPIUM 3 ML (DUONEB) VIAL INH PRN (13:15)
[2022-07-13] MEDS ORDERED: SALIVA SUBSTITUTE 60 ML SPRAY(MOUTHKOTE) MM PRN (13:15)
[2022-07-13] MEDS ORDERED: GLYCOPYRROLATE 0.2 MG/ML (ROBINUL) 2 ML VIAL IV PRN (13:15)
[2022-07-13] MEDS ORDERED: ARTIFICAL TEARS 0.4 ML UNIT DOSE (REFRESH PLUS) OU PRN (13:15)
[2022-07-13] MEDS ORDERED: ACETAMINOPHEN 650 MG SUPP (TYLENOL) PR PRN (13:15)
[2022-07-13] MEDS ORDERED: BISACODYL 10 MG SUPP (DULCOLAX) PR PRN (13:15)
[2022-07-13] MEDS ORDERED: ONDANSETRON 4 MG/2 ML (SDV) Z0FRAN IVP PRN (13:15)
[2022-07-13] MEDS ORDERED: PROMETHAZINE INJ 25 MG/ML (PHENERGAN) AMP IVP PRN (13:15)
[2022-07-13] MEDS ORDERED: LIDOCAINE UROJET 2% GEL 10 ML PKG TOP NR (13:30)
[2022-07-13] MEDS: morphine INJ 4 MG/ML 1 ML (VIAL/SYRINGE) IV PRN ×5 (15:11→22:52)
[2022-07-13] MEDS: LORazepam 1 MG (ATIVAN) TAB SL PRN ×2 (15:12→20:43)
--- NOTE | 2022-07-13 16:53 | History & Physical ---
History of Present Illness History of Present Illness Reason for visit/HPI This is a 76 year old male with a history of severe PAD with resulting right BKA who has had recent worsening pain and discoloration to his left foot as well as to his right stump. He has a refractory anemia for which he follows with hematology and gets frequent blood transfusions. He has been off and on plavix therapy due to the plavix worsening his anemia. He was seen recently by a vas cular surgeon and found to have occulusions in both his left leg and right leg. He was started on xarelto and possible procedures were discussed but the patient was adamant he did not want any further surgery. His left foot and right BKA stump became more discolored and more painful and he became less responsive so he was brought to the emergency room where he was found to be septic with cellulitis in both his right stump and his left foot and apparent osteomyelitis. He has been admitted to the medical floor on aggessive IVFs with broad spectrum antibiotics as well as blood transfusion. He is requiring morphine for pain and has been unresponsive for the last 2 days except for an occasional yelling out in pain. Date of Admission Jul 12, 2022 at 12:19 Date Seen by a Provider: Jul 13, 2022 Time Seen by a Provider: 12:45 I consulted on this patient on 07/13/22 16:45 Attending Physician Kevin Gallegos DO Admitting Physician Admitting Physician: Kevin Gallegos DO Attending Physician: Kevin Gallegos DO Consult Allergies and Home Medications Allergies Coded Allergies: Sulfa (Sulfonamide Antibiotics) (Verified Allergy, Intermediate, RASH, TROUBLE BREATHING, 07/12/22) Tetanus Vaccines and Toxoid (Verified Allergy, Unknown, ARMS SWELLS , 07/12/22) cephalexin (Verified Allergy, Unknown, RASH, 07/12/22) Patient Home Medication List Home Medication List Reviewed: Yes Acetaminophen (Tylenol Extra Strength) 500 Mg Tablet, 500-1,000 MG PO Q8H PRN for PAIN-MILD (1-4), (Reported) Entered as Reported by: ILA FOX on 07/13/22 1050 Last Action: Reviewed Donepezil HCl (Donepezil HCl) 5 Mg Tablet, 5 MG PO HS, (Reported) Entered as Reported by: ILA FOX on 07/13/221049 Last Action: Reviewed Finasteride (Finasteride) 5 Mg Tablet, 5 MG PO DAILY, (Reported) Entered as Reported by: JOCELYN REVELES on 03/15/19 1229 Last Action: Reviewed Gabapentin (Neurontin) 300 Mg Capsule, 300 MG PO 0700,1200, (Reported) Entered as Reported by: ILA FOX on 07/13/221049 Last Action: Reviewed Gabapentin (Neurontin) 300 Mg Capsule, 600 MG PO HS, (Reported) Entered as Reported by: ILA FOX on 07/13/221049 Last Action: Reviewed Lenalidomide (Revlimid) 10 Mg Capsule, 10 MG PO HS, (Reported) Entered as Reported by: ILA FOX on 07/13/221049 Last Action: Reviewed Omeprazole (Omeprazole) 20 Mg Capsule.dr, 20 MG PO 1800, (Reported) Entered as Reported by: ILA FOX on 07/13/221049 Last Action: Reviewed Prednisone (Prednisone) 20 Mg Tab, 20 MG PO BID, (Reported) Entered as Reported by: ILA FOX on 07/13/221049 Last Action: Reviewed Tamsulosin HCl (Flomax) 0.4 Mg Cap, 0.8 MG PO DAILY, (Reported) Entered as Reported by: ILA FOX on 07/13/221049 Last Action: Reviewed Discontinued Medications Acetaminophen (Tylenol Extra Strength) 500 Mg Tablet, 500 MG PO Q8H PRN for PAIN-MILD (1-4), (Reported) Discontinued Reason: No Longer Taking Entered as Reported by: BRUCE MENCHACA on 12/27/21 1333 Last Action: Discontinued Cholestyramine (with Sugar) (Cholestyramine Packet) 4 Gram Powd.pack, 4 GM PO DAILY, (Reported) Discontinued Reason: No Longer Taking Entered as Reported by: BRUCE MENCHACA on 12/27/21 1337 Last Action: Discontinued Lenalidomide (Revlimid) 2.5 Mg Capsule, 5 MG PO HS, (Reported) Discontinued Reason: No Longer Taking Entered as Reported by: BRUCE MENCHACA on 12/27/21 133 Last Action: Discontinued Prednisone (Prednisone) 10 Mg Tab, UD, (Reported) Discontinued Reason: No Longer Taking Entered as Reported by: SAMIR NGUYEN on 03/14/22 1741 Last Action: Discontinued Tamsulosin HCl (Flomax) 0.4 Mg Cap, 0.8 MG PO DAILY, (Reported) Discontinued Reason: No Longer Taking Entered as Reported by: JOCELYN REVELES on 03/15/19 0655 Last Action: Discontinued Past Ghtywej-Dtxqgc-Sckyle Hx Patient Social History Marrital Status: Employed/Student: retired Tobacco Use?: Yes Tobacco type used: Cigarettes Smoking Status: Current Everyday Smoker Use of E-Cig and/or Vaping dev: No Substance use?: No Alcohol Use?: No Pt feels they are or have been: Unable to obtain Immunizations Up To Date First/Initial COVID19 Vaccinat: 2020 Second COVID19 Vaccination Brendon: 2020 Tetanus Booster (TDap): Unknown Hepatitis A: No Hepatitis B: No PED Vaccines UTD: Yes Seasonal Allergies Seasonal Allergies: No Current Status Advance Directives: Unable to obtain Advance Directive Location: Unable to obtain copy Communicates: Unable To Communicate Primary Language: Chilean Preferred Spoken Language: Chilean Is interpretation needed?: No Additional sensory deficits: NONVERBAL Implanted or Applied Medical D: Port-a-cath Past Medical History Surgeries: Amputation, Cardiac, Orthopedic, Tonsillectomy Asthma, Pneumonia, COPD Currently Using CPAP: No Currently Using BIPAP: No Atrial Fibrillation, High Cholesterol, Hypertension, Peripheral Vascular Dementia Benign Prostatic Hyperpl, Bladder Infection, Renal Failure Chronic Constipation Amputee, Arthritis Hearing Impairment: Hard of Hearing, Bilateral Hearing Aide Did You Recieve Any Treatments: Yes What Type of Treatment Did You: Chemotherapy Blood Disorders: Yes (refractory anemia /ring sideroblasts W/ thrombocytosis;MYELODYSPLASIA) Adverse Reaction/Blood Tranf: No Family Medical History No Pertinent Family Hx MYELODYSPLASTIC SYNDROME /MYELOPROLIFERATIVE DISORDER WAS DX 2016 IN [place]. HAD BEEN ON HYDROXYUREA, THIS WAS DC'D AND PT HAS BEEN ON ANAGRELIDE SINCE 03/2019. RECEIVES WEEKLY BLOOD TRANSFUSIONS--EVERY MONDAY ADDITIONAL PMH : -NSTEMI 04/23/19. -MULTIPLE EPISODES OF RESPIRATORY FAILURE Review of Systems Constitutional: weakness, weight loss EENTM: No see HPI, No no symptoms reported, No ear discharge, No hearing loss, No ear pain, No blurred vision, No double vision, No eye pain, No tearing, No vision loss, No dental problems, No hoarseness, No mouth pain, No mouth swelling, No epistaxis, No nose congestion, No nose pain, No throat pain, No throat swelling, No other Respiratory: No no symptoms reported, No see HPI, No cough, No dyspnea on exertion, No hemoptysis, No orthopnea, No phlegm, No short of breath, No stridor, No wheezing, No other Cardiovascular: other (severe PAD) Gastrointestinal: loss of appetite Genitourinary: decreased output Musculoskeletal: joint pain, muscle weakness Skin: change in color (left foot and right stump) Psychiatric/Neurological: Paresthesia, Weakness Physical Exam Vital Signs Vital Signs - First Documented 07/12/22 10:25 Temp 39.4 Pulse 67 Resp 22 B/P (MAP) 144/50 (81) Pulse Ox 94 O2 Delivery Room Air Capillary Refill : Less Than 3 Seconds Height, Weight, BMI Height: 6'1.00" Weight: 196lbs. oz. 88.202676ul; 12.27 BMI Method:Stated General Appearance: Other (sleeping/unresponsive) Neck: Supple Respiratory: Lungs Clear Cardiovascular: Regular Rate, Rhythm, Systolic Murmur Gastrointestinal: Normal Bowel Sounds, Non Tender, Soft Rectal: Deferred Extremity: Other (cyanosis to left foot and toes and right stump) Neurologic/Psychiatric: Other (lethargic) Skin: Mottled (left foot) Comments Laboratory Tests 07/12/22 17:01: Troponin I 0.125H 07/13/22 05:40: Troponin I 0.167H, White Blood Count 4.1L, Red Blood Count 1.98L, Hemoglobin 5.5*L, Hematocrit 17*L, Mean Corpuscular Volume 86, Mean Corpuscular Hemoglobin 28, Mean Corpuscular Hemoglobin Concent 32, Red Cell Distribution Width 14.6H, Platelet Count 287, Mean Platelet Volume 11.9, Immature Granulocyte % (Auto) 2, Neutrophils (%) (Auto) 71, Lymphocytes (%) (Auto) 15, Monocytes (%) (Auto) 8, Eosinophils (%) (Auto) 2, Basophils (%) (Auto) 2, Neutrophils # (Auto) 2.9, Lymphocytes # (Auto) 0.6L, Monocytes # (Auto) 0.3, Eosinophils # (Auto) 0.1, Basophils # (Auto) 0.1, Immature Granulocyte # (Auto) 0.1, Smear Scan YES Microbiology 07/12/22 Blood Culture - Preliminary, Resulted No growth 07/12/22 Urine Culture - Final, Complete NO GROWTH Assessment/Plan Assessment and Plan 1. Cellulitis/Osteomyelitis of Left Foot and Right Stump--admitted on septic protocol with broad spectrum antibiotics and surgical consult 2. Severe PAD of both LEs with extensive blood clots--started recently on xarelto and aspirin 3. Refractory Anemia with history of weekly blood transfusions--S/P 1upRBCs 4. History of CHF--currently stable 5. [place] very poor so family has decided on comfort care Admission Diagnosis Admission Status: Inpatient Order (span 2 midnights) Reason for Inpatient Admission: Sepsis protocol KEVIN GALLEGOS DO Jul 13, 2022 16:53
[2022-07-13] MEDS ORDERED: LORazepam INJ 2 MG/ML (ATIVAN) VIAL IVP PRN (21:00)
[2022-07-13] MEDS ORDERED: TROUGH ORDER-PHARMACY XX NR (23:00)
--- NOTE | 2022-07-14 13:42 | Physician Query Clarification ---
Physician Query-General Query to Physician: The medical record reflects the following clinical scenario: The patient, in the setting of History/Risk factors, "Cellulitis in both his right stump and his left foot and apparent osteomyelitis" "BKA stump became more discolored and more painful and he became less responsive" Clinical Findings Admission VS/Labs: HR 67, RR 22, BP 144/50, SpO2 95% sat on room air T 39.4, WBC 6.9, lactic acid 2.09 then 2.53 then 1.95 Treatment "Aggressive IVF's" Give 1.5L NS in ER started on IV vancomycin, IV Zosyn, IV metronidazole and IV cefepime Question: Do you agree with the impression of Severe Sepsis per Dr. Ki Russell? 1. Yes; will document Severe Sepsis, present on admission in the Progress Notes 2. No; will continue current documentation in the Progress Notes 3. Other; will document explanation of clinical findings 4. Clinically undetermined; no explanation for clinical findings Please clarify and document your clinical opinion in the Progress Notes and Discharge Summary including the definitive and/or presumptive diagnosis, (suspected or probable), related to the above clinical findings. Please include clinical findings supporting your diagnosis. In responding to this query, please exercise your independent professional judgment. The purpose of this communication is to more accurately reflect the complexity of your patients condition. The fact that a question is asked does not imply that any particular answer is desired or expected. Thank you for timely response to this clarification. Bessy Baires, MSN, RN Clinical Sanitation Manager [phone] [email or web address] PHYSICIAN RESPONSE: Based on the clinical findings in the record, please respond to the query above on this document as an addendum. Physician Response: Physician Response 1 If you have questions please contact: Rn Critical Care: Ext: Thank you for your time and cooperation. Clinical Sanitation Manager/Rn Critical Care This is a permanent part of the medical record BESSY BAIRES Jul 14, 2022 13:42 KEVIN BURCH DO Jul 14, 2022 17:54
--- NOTE | 2022-07-14 13:54 | Physician Query Clarification ---
Physician Query-General Query to Physician: The medical record reflects the following clinical scenario: The patient, in the setting of History/Risk factors, Severe anemia, Sepsis per ER physician Clinical Findings Troponin trend: troponin I 0.081, 0.125 then 0.167, HGB 5.6, EKG "abnormal" Treatment Cardiology Consult, Serial EKG's Trending Troponin, Family considering comfort care so looking at conservative treatment. Treatment of underlying condition IVF's and IV ABX, Aspirin, MS as needed, Question: Do you agree with the impression NSTEMI, likely type II per Dr. David Weiner? 1. Yes; will document NSTEMI, likely type II present on admission in the Progress Notes 2. No; will continue current documentation in the Progress Notes 3. Other; will document explanation of clinical findings 4. Clinically undetermined; no explanation for clinical findings Please clarify and document your clinical opinion in the Progress Notes and Discharge Summary including the definitive and/or presumptive diagnosis, (suspected or probable), related to the above clinical findings. Please include clinical findings supporting your diagnosis. In responding to this query, please exercise your independent professional judgment. The purpose of this communication is to more accurately reflect the complexity of your patients condition. The fact that a question is asked does not imply that any particular answer is desired or expected. Thank you for timely response to this clarification. Bessy Baires, MSN, RN Clinical Apple Thinner [phone] [email or web address] PHYSICIAN RESPONSE: Based on the clinical findings in the record, please respond to the query above on this document as an addendum. Physician Response: If you have questions please contact: Rn Rehab: Ext: Thank you for your time and cooperation. Clinical Apple Thinner/Rn Rehab This is a permanent part of the medical record BESSY BAIRES Jul 14, 2022 13:54
--- NOTE | 2022-07-17 09:50 | Discharge Summary ---
Diagnosis/Chief Complaint Date of Admission Jul 12, 2022 at 12:19 Date of Discharge Jul 14, 2022 at 05:05 Discharge Diagnosis 1. Cellulitis and Osteomyelitis of left foot and right stump with Severe Sepsis--initially treated with broad spectrum antibiotics but family decided on comfort care 2. Severe PAD with Arterial Blood Clots--inoperable 3. Refractory Anemia with history of weekly blood transfusions 4. History of CHF with elevated troponin-I--likely Type II from sepsis 5. Worsening Debility Reason Hospital Visit This is a 76 year old male with a history of severe PAD with resulting right BKA who has had recent worsening pain and discoloration to his left foot as well as to his right stump. He has a refractory anemia for which he follows with hematology and gets frequent blood transfusions. He has been off and on plavix therapy due to the plavix worsening his anemia. He was seen recently by a vascular surgeon and found to have occulusions in both his left leg and right leg. He was started on xarelto and possible procedures were discussed but the patient was adamant he did not want any further surgery. His left foot and right BKA stump became more discolored and more painful and he became less responsive so he was brought to the emergency room where he was found to be septic with cellulitis in both his right stump and his left foot and apparent osteomyelitis. He has been admitted to the medical floor on aggessive IVFs with broad spectrum antibiotics as well as blood transfusion. He is requiring morphine for pain and has been unresponsive for the last 2 days except for an occasional yelling out in pain. Discharge Summary Hospital Course Was the Problem List Reviewed?: Yes Hospital Course This is a 76 year old male with a history of severe PAD with resulting right BKA who has had recent worsening pain and discoloration to his left foot as well as to his right stump. He has a refractory anemia for which he follows with hematology and gets frequent blood transfusions. He has been off and on plavix therapy due to the plavix worsening his anemia. He was seen recently by a vascular surgeon and found to have occulusions in both his left leg and right leg. He was started on xarelto and possible procedures were discussed but the patient was adamant he did not want any further surgery. His left foot and right BKA stump became more discolored and more painful and he became less responsive so he was brought to the emergency room where he was found to be septic with cellulitis in both his right stump and his left foot and apparent osteomyelitis. He has been admitted to the medical floor on aggessive IVFs with broad spectrum antibiotics as well as blood transfusion. He is requiring morphine for pain and has been unresponsive for the last 2 days except for an occasional yelling out in pain. The family decided on comfort care due to his ongoing unresponsiveness as well as the poor prognosis with his severe PAD with arterial blood clots and osteomyelitis. The patient had been adamant about no further surgeries especially amputations. He was placed on comfort care and within 12 hours. Labs Laboratory Tests 07/15/22 15:49: Procedures None. Discharge Physical Examination Allergies: Coded Allergies: Sulfa (Sulfonamide Antibiotics) (Verified Allergy, Intermediate, RASH, TROUBLE BREATHING, 07/12/22) Tetanus Vaccines and Toxoid (Verified Allergy, Unknown, ARMS SWELLS , 07/12/22) cephalexin (Verified Allergy, Unknown, RASH, 07/12/22) Vitals & I&Os Vital Signs Date Time Temp Pulse Resp B/P (MAP) Pulse Ox O2 Delivery O2 Flow Rate FiO2 07/13/22 20:03 Room Air 07/13/22 13:06 87 07/13/22 13:03 37.0 18 112/54 (73) 94 Discharge Home Medications Reviewed and agree with Discharge Medication list on patient's Discharge Instruction sheet Instructions to Patient/Family Please see electronic discharge instructions given to patient. KEVIN BURCH DO Jul 17, 2022 09:50
== END 2022-07-14 05:05 | disposition expired | DRG 871 ==
LOC: EDUNIT# 10:21 → ER 10:22 → 4TH 12:19
PROVIDERS: ADMIT Family Medicine; ATTEND Family Medicine
DX: A41.9 Sepsis, unspecified organism (principal); I21.A1 Myocardial infarction type 2; L03.116 Cellulitis of left lower limb; M86.8X7 Other osteomyelitis, ankle and foot; I96 Gangrene, not elsewhere classified; J81.1 Chronic pulmonary edema; R65.20 Severe sepsis without septic shock; Z66 Do not resuscitate; Z51.5 Encounter for palliative care; I50.9 Heart failure, unspecified; R53.81 Other malaise; Z89.511 Acquired absence of right leg below knee; F03.90 Unspecified dementia, unspecified severity, without behavioral disturbance, psychotic disturbance, mood disturbance, and anxiety; N40.0 Benign prostatic hyperplasia without lower urinary tract symptoms; M19.90 Unspecified osteoarthritis, unspecified site; E78.5 Hyperlipidemia, unspecified; F17.200 Nicotine dependence, unspecified, uncomplicated; I11.0 Hypertensive heart disease with heart failure; I48.0 Paroxysmal atrial fibrillation; D75.839 Thrombocytosis, unspecified; Z82.49 Family history of ischemic heart disease and other diseases of the circulatory system; D46.1 Refractory anemia with ring sideroblasts; Z20.822 Contact with and (suspected) exposure to COVID-19
CPT/HCPCS: 36415; 51702; 71045; 73590; 73630; 80053; 81000; 83605; 84484; 85025; 85610; 85652; 85730; 86141; 86850; 86900; 86901; 86920; 87040; 87088; 87636; 93005